=== PATIENT | male | born 1950 | race African-American/Black ===

== ENCOUNTER 2017-11-24 20:42 | Inpatient (IN) | payer MEDICARE, MEDICAID ==
[~2017-11-24] VITALS: Ht 177.8 cm; Wt 70.3 kg
[~2017-11-24 20:42] MED LIST: ALBUTEROL SULFAT2 MG PO; ALBUTEROL2.5 MG/3 M INH; AMLODIPINE BESYL5 MG ORAL; ASPIR 8181 MG ORAL; ATORVASTATIN CA20 MG ORAL; BENADRYL A12.5 MG/5 ORAL; CATAPRES0.1 MG ORAL; CATAPRES0.2 MG ORAL; DOCUSATE SODIU100 MG ORAL; FAMOTIDINE20 MG ORAL; GABAPENTIN300 MG ORAL; HYDROCHLOROTHIA25 MG ORAL; HYDROMORPHONE HC2 M1 PO; LOSARTAN POTASS50 MG ORAL; MEGACE ORA400 MG/10 ORAL; MIRALAX17 G2 ORAL; MYLANTA II30 ML PO; NITROSTAT0.4 M1 SL; NORCO 5-325 TA1 EAC1 ORAL; NORCO 5-325 TA1 EACH ORAL; RANITIDINE HCL150 MG ORAL; RESTORIL15 MG ORAL; TRAZODONE HCL100 MG ORAL; TYLENOL650 MG/20. ORAL
--- NOTE | 2017-11-24 21:09 | Emergency Room Report ---
History of Present Illness General Chief Complaint: Behavioral Complaint Source: Patient Present Illness HPI Is a 67-year-old male who is a detention resident. He has a history of COPD and schizophrenia. He presents with increased agitation and abnormal labs. Nothing his medication for the last 3 days. No fever chills denies nausea vomiting. Blood work showed BUN of 55 and cramps 2.6. Patient denies any complaint. No pain. No nausea no vomiting. No fever or chills. Allergies: Coded Allergies: THIORIDAZINE (Unverified Allergy, Mild, HIVES, 04/06/15) PENICILLIN (Unverified Allergy, Unknown, 06/15/15) PENICILLINS (Unverified Allergy, Unknown, 11/24/17) Patient History Past Medical History: see triage record, old chart reviewed, psych hx, renal disease Past Surgical History: other Pertinent Family History: none Social History: Denies: smoking Immunizations: other Reviewed Nursing Documentation: PMH: Agreed, PSxH: Agreed Nursing Documentation-PMH Past Medical History: No History, Except For Hx Hypertension: Yes Hx COPD: Yes - Acute Resp. distress Hx Diabetes: Yes Hx Cancer: No Hx Neurological Problems: Yes Hx Peripheral Neuropathy: Yes Review of Systems Constitutional: Reports: weakness Eye: Denies: eye pain, blurred vision ENT: Denies: ear pain, nose congestion, throat swelling Respiratory: Denies: cough, shortness of breath Cardiovascular: Denies: chest pain, palpitations Gastrointestinal: Denies: abdominal pain, diarrhea, nausea, vomiting Musculoskeletal: Denies: back pain, joint pain Skin: Denies: rash Neurological: Denies: headache, numbness Endocrine: Denies: increased thirst, increased urine Hematologic/Lymphatic: Denies: easy bruising All Other Systems: negative except mentioned in HPI Physical Exam Vital Signs Date Time Temp Pulse Resp B/P (MAP) Pulse Ox O2 Delivery O2 Flow Rate FiO2 11/24/17 20:50 98.1 93 16 134/93 98 Room Air vitals normal Sp02 EP Interpretation: reviewed, normal General Appearance: well appearing, no apparent distress, alert, other - Sleepy. EMS said he received Ativan prior to arrival. Head: normocephalic, atraumatic Eyes: bilateral eye PERRL, bilateral eye EOMI ENT: hearing 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, normal pharynx Neck: full range of motion, supple, no meningismus Respiratory: chest non-tender, lungs clear, normal breath sounds Cardiovascular #1: regular rate, rhythm, no murmur Gastrointestinal: normal bowel sounds, non tender, no mass, no organomegaly, no bruit, non-distended Musculoskeletal: back normal, normal range of motion Neurologic: alert, oriented x3 Psychiatric: mood/affect normal Skin: warm/dry Medical Decision Making Diagnostic Impression: Primary Impression: Dehydration Additional Impressions: Failure to thrive in adult Agitation ER Course Patient presents with dehydration and acute renal failure. Kidney function improved. IV fluid given here. Patient will be admitted for further workup. Lab Results Impression labs unremarkable Last Vital Signs Date Time Temp Pulse Resp B/P (MAP) Pulse Ox O2 Delivery O2 Flow Rate FiO2 11/24/17 20:50 98.1 93 16 134/93 98 Room Air Status: improved Disposition: ADMITTED INPATIENT Condition: Serious ABIODUN FERMIN M.D. Nov 24, 2017 21:09
[2017-11-24 21:28] VITALS: BP 134/93
[2017-11-24 22:01] LABS: APPEARANCE,URINE CLEAR; BILIRUBIN, URINE NEGATIVE (NEGATIVE); COLOR,URINE PALE YELLOW; GLUCOSE, URINE (UA) NEGATIVE (NEGATIVE); KETONES,URINE NEGATIVE (NEGATIVE); LEUKOCYTE ESTERASE ,URINE NEGATIVE (NEGATIVE); NITRITE,URINE NEGATIVE (NEGATIVE); PH,URINE 6 (4.5-8.0); PROTEIN,URINE 1+ (NEGATIVE); UROBILINOGEN,URINE NORMAL MG/DL (0.0-1.0)
[2017-11-24 22:08] LABS: BASOPHILS % (AUTO) 0.7 % (0.0-2.0); EOSINOPHILS % (AUTO) 3.9 % (0.0-3.0); HEMATOCRIT 30.4 % (42.0-52.0); HEMOGLOBIN 9.8 G/DL (14.2-18.0); LYMPHOCYTES % (AUTO) 21.8 % (20.0-45.0); MEAN CORPUSCULAR VOLUME 94 FL (80-99); MONOCYTES % (AUTO) 8.9 % (1.0-10.0); NEUTROPHILS % (AUTO) 64.7 % (45.0-75.0); PLATELET COUNT 178 K/UL (150-450); RED BLOOD COUNT 3.23 M/UL (4.70-6.10); RED CELL DISTRIBUTION WIDTH 13.3 % (11.6-14.8); WHITE BLOOD COUNT 10.4 K/UL (4.8-10.8)
[2017-11-24 22:26] LABS: ANION GAP 10 mmol/L (5-15); BLOOD UREA NITROGEN 36 mg/dL (7-18); CALCIUM 9.4 MG/DL (8.5-10.1); CARBON DIOXIDE 24 MMOL/L (21-32); CHLORIDE 108 MMOL/L (98-107); CREATININE 1.3 MG/DL (0.55-1.30); POTASSIUM 5.1 MMOL/L (3.5-5.1); SODIUM 142 MMOL/L (136-145)
[2017-11-25] VITALS (8 sets, daily range): BP systolic 123–163; BP diastolic 71–93
[2017-11-25] MEDS ORDERED: GLUCAGEN1 M1 IJ (01:30)
[2017-11-25] MEDS ORDERED: MILK OF MA400 MG/51 ORAL (01:30)
[2017-11-25] MEDS ORDERED: TEMAZEPAM15 MG ORAL (01:30)
[2017-11-25] MEDS ORDERED: BENAZEPRIL HCL10 MG ORAL (01:30)
[2017-11-25] MEDS ORDERED: ATORVASTATIN CA20 MG ORAL (01:30)
[2017-11-25] MEDS ORDERED: NEURONTIN100 MG ORAL (01:30)
[2017-11-25] MEDS ORDERED: VITAMIN C500 M1 ORAL (01:30)
[2017-11-25] MEDS ORDERED: DEPAKOTE250 MG PO (01:30)
[2017-11-25] MEDS ORDERED: VIRT-CAPS SOFTGE1 MG PO (01:30)
[2017-11-25] MEDS ORDERED: BISACODYL5 MG RECTAL (01:30)
[2017-11-25] MEDS ORDERED: PLAVIX75 MG ORAL (01:30)
[2017-11-25] MEDS ORDERED: SEROQUEL100 MG ORAL (01:30)
[2017-11-25] MEDS ORDERED: LORAZEPAM1 MG ORAL (01:30)
[2017-11-25] MEDS ORDERED: LEXAPRO20 MG ORAL (01:30)
[2017-11-25] MEDS ORDERED: AMLODIPINE BESY10 MG ORAL (01:30)
[2017-11-25] MEDS ORDERED: ZINC SULFATE220 M1 ORAL (01:30)
[2017-11-25] MEDS ORDERED: PROTONIX40 MG ORAL (01:30)
[2017-11-25] MEDS ORDERED: FOLIC ACID1 MG ORAL (01:30)
[2017-11-25] MEDS ORDERED: ACETAMINOPHEN325 M1 ORAL (03:24)
[2017-11-25] MEDS ORDERED: ASCORBIC ACID500 MG ORAL (03:24)
[2017-11-25] MEDS ORDERED: NEPHROVITE1 TAB ORAL (03:24)
[2017-11-25] MEDS ORDERED: Miralax 17gm pkt ORAL PRN (05:00)
[2017-11-25] MEDS ORDERED: Mylanta II UD 30ml ORAL PRN (05:00)
[2017-11-25] MEDS ORDERED: Haloperidol 5mg/ml Inj IVPB PRN (05:00)
[2017-11-25] MEDS ORDERED: LORazepam Inj 2mg/ml 1ml IV PRN (05:00)
[2017-11-25] MEDS ORDERED: Zolpidem 5mg tab ORAL PRN (05:00)
[2017-11-25] MEDS ORDERED: Haloperidol Lactate 5 MG in D5W 55 ML IVPB PRN (05:30)
[2017-11-25] MEDS: NovoLOG Insulin Flexpen SUBQ SCH ×4 (06:16→21:00)
[2017-11-25] MEDS: Morphine Sulfate 2mg/ml Inj IVP PRN ×4 (06:30→21:05)
--- NOTE | 2017-11-25 09:06 | Consultation ---
History of Present Illness General Date patient seen: Nov 25, 2017 Chief Complaint: Behavioral Complaint Present Illness HPI 67-year-old male with hx of COPD and schizophrenia, [facility] resident presented with increased agitation . He is confused and agitated, His labs in ER showed BUN of 55 and cramps 2.6. Pt is admitted for acute renal failure and failure to thrive. Allergies: Coded Allergies: THIORIDAZINE (Unverified Allergy, Mild, HIVES, 04/06/15) PENICILLIN (Unverified Allergy, Unknown, 06/15/15) PENICILLINS (Unverified Allergy, Unknown, 11/24/17) Medication History Scheduled Amlodipine Besylate* (Amlodipine Besylate*), 10 MG ORAL DAILY, (Reported) Ascorbic Acid* (Vitamin C*), 500 MG ORAL DAILY, (Reported) Ascorbic Acid* (Ascorbic Acid*), 500 MG ORAL DAILY, (Reported) Atorvastatin Calcium* (Atorvastatin Calcium*), 10 MG ORAL BEDTIME, (Reported) Benazepril Hcl* (Benazepril Hcl*), 10 MG ORAL DAILY, (Reported) Bisacodyl* (Dulcolax*), 10 MG RECTAL ONCE, (Reported) Clopidogrel Bisulfate* (Plavix*), 75 MG ORAL DAILY, (Reported) Divalproex Sodium* (Depakote*), 250 MG PO Q12HR, (Reported) Docusate Sodium* (Docusate Sodium*), 250 MG ORAL BID, (Reported) Escitalopram Oxalate* (Lexapro*), 20 MG ORAL DAILY, (Reported) Folic Acid* (Folic Acid*), 1 MG ORAL DAILY, (Reported) Gabapentin* (Neurontin*), 300 MG ORAL THREE TIMES A DAY, (Reported) Losartan Potassium* (Losartan Potassium*), 50 MG ORAL DAILY, (Reported) Magnesium Hydroxide* (Milk Of Magnesia*), 30 ML ORAL NEEDED, (Reported) Megestrol Acetate (Megestrol Acetate), 400 MG ORAL DAILY, (Reported) Pantoprazole* (Protonix*), 40 MG ORAL DAILY, (Reported) Quetiapine Fumarate* (Seroquel*), 100 MG ORAL THREE TIMES A DAY, (Reported) Ranitidine Hcl* (Zantac*), 150 MG ORAL BEDTIME, (Reported) Temazepam (Temazepam*), 15 MG ORAL QHS, (Reported) Trazodone Hcl* (Desyrel*), 100 MG ORAL BEDTIME, (Reported) Vitamin B Cmplx/Vit C/Folic AC (Nephro-Elizabet Tablet), 1 TAB ORAL DAILY, (Reported ) Zinc Sulfate (Zinc Sulfate*), 220 MG ORAL DAILY, (Reported) Scheduled PRN Acetaminophen* (Acetaminophen 325MG Tablet*), 650 MG ORAL Q6H PRN for Prn Chest Pain, (Reported) Al Hydroxide/mg Hydroxide (Mag-Al Plus Suspension), 30 ML PO Q6HR PRN for gastric pain, (Reported) Albuterol Sulfate* (Albuterol Sulfate Hhn*), 3 ML INH Q6H PRN for Shortness of Breath, (Reported) Clonidine Hcl* (Catapres*), 0.1 MG ORAL EVERY 6 HOURS PRN for For High Blood Pressure, (Reported) Clonidine Hcl* (Catapres*), 0.2 MG ORAL EVERY 4 HOURS PRN for For High Blood Pressure, (Reported) Diphenhydramine Hcl* (Benadryl Allergy*), 25 MG ORAL Q6H PRN for Itching, ( Reported) Hydrocodone Bit/Acetaminophen 5-325* (Outlook 5-325*), 1 TAB ORAL Q6H PRN for For Pain Lorazepam* (Lorazepam*), 1 MG ORAL EVERY 6 HOURS PRN for For Anxiety, (Reported) Nitroglycerin (Nitrostat), 0.4 MG SL Q5M X3 DOSES PRN for Chest Pain, (Reported) Polyethylene Glycol 3350* (Miralax*), 17 GM ORAL DAILY PRN for Constipation, ( Reported) Polyethylene Glycol 3350* (Miralax*), 17 GM ORAL DAILY PRN for Constipation, ( Reported) Miscellaneous Medications B Complex & C No.20/Folic Acid (Virt-Caps Softgel), 1 MG PO, (Reported) Glucagon,Human Recombinant (Glucagen), 1 MG IJ, (Reported) Patient History Healthcare decision maker Resuscitation status Full Code Advanced Directive on File Past Medical/Surgical History Past Medical/Surgical History: (1) Hypertension (2) Schizoaffective disorder (3) Diabetes Review of Systems All Other Systems: negative except mentioned in HPI Physical Exam General Appearance: cachetic Lines, tubes and drains: peripheral HEENT: normocephalic, atraumatic Neck: non-tender, normal alignment Respiratory/Chest: chest wall non-tender, lungs clear Breasts: no masses Cardiovascular/Chest: normal peripheral pulses Abdomen: normal bowel sounds, non tender Genitourinary/Rectal: normal genital exam, normal rectal exam Extremities: normal range of motion Last 24 Hour Vital Signs Date Time Temp Pulse Resp B/P (MAP) Pulse Ox O2 Delivery O2 Flow Rate FiO2 11/25/17 08:13 97.7 90 20 144/81 97 11/25/17 03:20 97.3 89 20 135/71 100 Room Air 11/25/17 01:36 98.0 81 19 158/89 97 Room Air 11/25/17 01:30 97.6 98 16 163/74 99 Room Air 11/25/17 01:30 97.6 98 16 163/74 99 Room Air 11/25/17 00:53 98.1 98 16 159/93 98 Room Air 11/24/17 21:28 98.1 93 16 134/93 98 Room Air 11/24/17 20:50 98.1 93 16 134/93 98 Room Air Intake and Output 11/24/17 11/25/17 19:00 07:00 Intake Total 0 ml Balance 0 ml Intake Oral 0 ml # Voids 2 # Bowel Movements 1 Laboratory Tests Test 11/24/17 21:11 White Blood Count 10.4 K/UL (4.8-10.8) Red Blood Count 3.23 M/UL (4.70-6.10) L Hemoglobin 9.8 G/DL (14.2-18.0) L Hematocrit 30.4 % (42.0-52.0) L Mean Corpuscular Volume 94 FL (80-99) Mean Corpuscular Hemoglobin 30.4 PG (27.0-31.0) Mean Corpuscular Hemoglobin Concent 32.3 G/DL (32.0-36.0) Red Cell Distribution Width 13.3 % (11.6-14.8) Platelet Count 178 K/UL (150-450) Mean Platelet Volume 10.0 FL (6.5-10.1) Neutrophils (%) (Auto) 64.7 % (45.0-75.0) Lymphocytes (%) (Auto) 21.8 % (20.0-45.0) Monocytes (%) (Auto) 8.9 % (1.0-10.0) Eosinophils (%) (Auto) 3.9 % (0.0-3.0) H Basophils (%) (Auto) 0.7 % (0.0-2.0) Urine Color Pale yellow Urine Appearance Clear Urine pH 6 (4.5-8.0) Urine Specific [place] 1.010 (1.005-1.035) Urine Protein 1+ (NEGATIVE) H Urine Glucose (UA) Negative (NEGATIVE) Urine Ketones Negative (NEGATIVE) Urine Occult Blood Negative (NEGATIVE) Urine Nitrite Negative (NEGATIVE) Urine Bilirubin Negative (NEGATIVE) Urine Urobilinogen Normal MG/DL (0.0-1.0) Urine Leukocyte Esterase Negative (NEGATIVE) Urine RBC 0-2 /HPF (0 - 0) H Urine WBC 0 /HPF (0 - 0) Urine Squamous Epithelial Cells None /LPF (NONE/OCC) Urine Bacteria None /HPF (NONE) Sodium Level 142 MMOL/L (136-145) Potassium Level 5.1 MMOL/L (3.5-5.1) Chloride Level 108 MMOL/L (98-107) H Carbon Dioxide Level 24 MMOL/L (21-32) Anion Gap 10 mmol/L (5-15) Blood Urea Nitrogen 36 mg/dL (7-18) H Creatinine 1.3 MG/DL (0.55-1.30) Estimat Glomerular Filtration Rate > 60 mL/min (>60) Glucose Level 102 MG/DL (74-106) Calcium Level 9.4 MG/DL (8.5-10.1) Troponin I 0.000 ng/mL (0.000-0.056) Height (Feet): 5 Height (Inches): 10.00 Weight (Pounds): 155 Medications Current Medications Medications (Trade) Dose Ordered Sig/Taco Route PRN Reason Start Time Stop Time Status Last Admin Dose Admin Acetaminophen (Tylenol) 650 mg Q4H PRN ORAL fever 11/25/17 05:00 12/25/17 04:59 Al Hydroxide/Mg Hydroxide (Mylanta II) 30 ml Q6H PRN ORAL dyspepsia 11/25/17 05:00 12/25/17 04:59 Amlodipine Besylate (Norvasc) 10 mg DAILY ORAL 11/25/17 09:00 12/25/17 08:59 Benazepril HCl (Lotensin) 10 mg DAILY ORAL 11/25/17 09:00 12/25/17 08:59 Clonidine HCl (Catapres Tab) 0.1 mg EVERY 6 HOURS PRN ORAL SBP>160 11/25/17 09:00 12/25/17 08:59 Clopidogrel Bisulfate (Plavix) 75 mg DAILY ORAL 11/25/17 09:00 12/25/17 08:59 Dextrose (Dextrose 50%) STAT PRN IV Hypoglycemia 11/25/17 05:00 12/25/17 04:59 Divalproex Sodium (Depakote) 250 mg Q12HR ORAL 11/25/17 09:00 12/25/17 08:59 Haloperidol Lactate 5 mg/ Dextrose 56 ml @ 224 mls/hr Q4H PRN IVPB agitation 11/25/17 05:30 12/25/17 05:29 Insulin Aspart (NovoLOG) BEFORE MEALS AND HS SUBQ 11/25/17 06:30 12/25/17 06:29 Lorazepam (Ativan 2mg/ml 1ml) 0.5 mg Q4H PRN IV For Anxiety 11/25/17 05:00 12/02/17 04:59 Morphine Sulfate (Morphine Sulfate) 1 mg Q4H PRN IVP For Pain 11/25/17 05:00 12/02/17 04:59 11/25/17 06:30 Ondansetron HCl (Zofran) 4 mg Q6H PRN IVP Nausea & Vomiting 11/25/17 05:00 12/25/17 04:59 Polyethylene Glycol (Miralax) 17 gm HSPRN PRN ORAL Constipation 11/25/17 05:00 12/25/17 04:59 Quetiapine Fumarate (SEROquel) 100 mg THREE TIMES A DAY ORAL 11/25/17 09:00 12/25/17 08:59 Trazodone HCl (Desyrel) 100 mg BEDTIME ORAL 11/25/17 21:00 12/25/17 20:59 Zolpidem Tartrate (Ambien) 5 mg HSPRN PRN ORAL Insomnia 11/25/17 05:00 12/02/17 04:59 Assessment/Plan Problem List: (1) Acute kidney failure ICD Codes: N17.9 - Acute kidney failure, unspecified SNOMED: 43242360 (2) Diabetes ICD Codes: E11.9 - Diabetes SNOMED: 96812633 (3) Anemia ICD Codes: D64.9 - Anemia SNOMED: 080943037 (4) Hypertension ICD Codes: I10 - Hypertension SNOMED: 14508622 (5) Schizoaffective disorder ICD Codes: F25.9 - Schizoaffective disorder SNOMED: 05066542 Assessment/Plan iv fluids renal w/u renal US continue psychiatric med symptomatic treatment KAREEM COREY Nov 25, 2017 09:05
[2017-11-25] MEDS: Benazepril 10mg tab ORAL SCH (09:12)
[2017-11-25 10:45] LABS: CREATINE KINASE 555 U/L (26-308)
--- NOTE | 2017-11-25 11:45 | Diagnostic Imaging Report ---
Indication: Altered mental status Technique: XRAY Chest 1v Comparison: 06/18/1715 Findings: Rotated and leaning to the right. Heart size and mediastinal contours are stable. There is no focal airspace consolidation, pleural effusion or pneumothorax. No acute osseous abnormality seen. Impression: Limited exam. No radiographic evidence of acute cardiopulmonary disease.
[2017-11-25 13:26] LABS: APPEARANCE,URINE CLEAR; BILIRUBIN, URINE NEGATIVE (NEGATIVE); COLOR,URINE PALE YELLOW; GLUCOSE, URINE (UA) NEGATIVE (NEGATIVE); KETONES,URINE NEGATIVE (NEGATIVE); LEUKOCYTE ESTERASE ,URINE NEGATIVE (NEGATIVE); NITRITE,URINE NEGATIVE (NEGATIVE); PH,URINE 6 (4.5-8.0); PROTEIN,URINE NEGATIVE (NEGATIVE); UROBILINOGEN,URINE NORMAL MG/DL (0.0-1.0)
[2017-11-25] MEDS: LORazepam Inj 2mg/ml 1ml IV PRN ×2 (17:09→23:05)
--- NOTE | 2017-11-25 20:00 | History and Physical Report ---
DATE OF ADMISSION: 11/25/2017 TIME SEEN: At 9 a.m. CONSULTANTS: 1. Uziel Collado M.D. 2. Vanesa Skinner M.D. 3. Hector Pradhan M.D. 4. Diogo Barr D.P.M. CHIEF COMPLAINT: Agitation, weakness, and foot wound. BRIEF HISTORY: This is a 67-year-old male from [facility] presented with the above-mentioned diagnoses, was agitated and threatening staff. The patient came to [facility], diagnosed with the above, and admitted to medical floor for further treatment. Currently, calmer in bed. No complaint. No chest pain. No shortness of breath. No nausea, vomiting, or diarrhea. PAST MEDICAL HISTORY: Includes diabetes, hypertension, encephalopathy, and foot wound. PAST SURGICAL HISTORY: Left eye. MEDICATIONS: Include Desyrel, Norvasc, Lotensin, Catapres, Plavix, Depakote, Seroquel, NovoLog, Tylenol, morphine, MiraLAX, Zofran, Ambien, Ativan, and Mylanta. ALLERGIES: Penicillin, . SOCIAL HISTORY: Positive smoking. No alcohol. No intravenous drug abuse. FAMILY HISTORY: Noncontributory. PHYSICAL EXAMINATION: GENERAL: Calm in bed, oriented x2, in no acute distress. VITAL SIGNS: Show temperature is 97, pulse 90, respirations 20, and blood pressure 144/81. CARDIOVASCULAR: No murmur. LUNGS: Distant and clear. ABDOMEN: Bowel sounds positive. Nontender. Nondistended. EXTREMITIES: No cyanosis or clubbing. A 1+ edema. Foot wound dressing is clean and dry. NEUROLOGIC: The patient moves all extremities. Slightly weak. LABORATORY DATA: Hemoglobin 9.8, otherwise CBC is normal. BMP shows chloride 108, BUN 36, otherwise BMP is normal. Urinalysis show 1+ protein, otherwise negative. ASSESSMENT: 1. Agitation. 2. Dehydration. 3. Anemia. 4. Diabetes. 5. Hypertension. 6. Foot wound. PLAN: 1. OT, PT, and dietary followup. 2. Wound care. 3. Blood pressure and blood sugar control. 4. Pain control. 5. CBC and BMP in the morning. 6. Dr. Collado, Dr. Skinner, Dr. Pradhan, and Dr. Brar to consult. Jarek Gonzalez D.O. DR: YUDELKA JOB#: [id number] CC:
[2017-11-25] MEDS: TraZODone 100mg tab ORAL SCH (21:03)
[2017-11-26] VITALS (9 sets, daily range): BP systolic 116–147; BP diastolic 62–82
[2017-11-26] MEDS: LORazepam Inj 2mg/ml 1ml IV PRN ×2 (03:23→12:40)
--- NOTE | 2017-11-26 04:48 | Consultation ---
DATE OF CONSULTATION: 11/25/2017 HISTORY OF PRESENT ILLNESS: This is a 67-year-old male patient with acute renal failure. This patient has a diagnosis of schizoaffective, bipolar type. The reason why he came here was because of acute renal failure. He has a lot of mood lability, agitation, and irritability. He also has neuropathy, difficulty with ambulation, and lower extremity weakness. He has multiple medical problems. Cognition has declined below baseline. He has extreme agitation, mood lability, and anxiety secondary to stress with medical illness, so that is why his attending has requested daily psychiatric consultation. ALLERGIES: No known drug allergies. SOCIAL HISTORY: The patient is financially supported by [employer] and Medicare. . SUBSTANCE ABUSE HISTORY: Denies drug and alcohol use. PSYCHIATRIC HISTORY: Schizoaffective, bipolar type. Now, he is on a psychotropic medication regimen of Depakote 250 mg at bedtime, trazodone 100 mg at bedtime, and Seroquel 100 mg three times a day. FAMILY PSYCHIATRIC HISTORY: he is a poor historian secondary to his mood lability and decline in cognition. MENTAL STATUS EXAMINATION: This is a 67-year-old male with psychomotor retardation. Mood is depressed. Affect, guarded and restricted. Thought process is disorganized and illogical. He has paranoid delusions and auditory hallucinations. Insight and judgment is poor. DIAGNOSIS: Schizoaffective, bipolar type. PLAN: My plan for this patient is to treat him with Depakote 250 mg at bedtime, trazodone 100 mg at bedtime, Seroquel 100 mg three times a day. Provide him with supportive therapy and encourage him to interact appropriately with staff and other patients. Seen and assessed at bedside. Chart was reviewed and discussed with staff. Supportive therapy provided. I would like to thank, Dr. Jarek Gonzalez, for this interesting consultation. The patient will continue to be followed by Psychiatry daily throughout his hospital course. Uziel Collado M.D. DR: TONYA JOB#: [id number] CC:
[2017-11-26] MEDS: NovoLOG Insulin Flexpen SUBQ SCH ×4 (06:30→21:40)
[2017-11-26 07:18] LABS: BASOPHILS % (AUTO) 0.8 % (0.0-2.0); EOSINOPHILS % (AUTO) 4.3 % (0.0-3.0); HEMATOCRIT 26.9 % (42.0-52.0); HEMOGLOBIN 8.6 G/DL (14.2-18.0); MEAN CORPUSCULAR VOLUME 92 FL (80-99); MONOCYTES % (AUTO) 12.1 % (1.0-10.0); NEUTROPHILS % (AUTO) 53.9 % (45.0-75.0); PLATELET COUNT 176 K/UL (150-450); RED BLOOD COUNT 2.91 M/UL (4.70-6.10); RED CELL DISTRIBUTION WIDTH 13.2 % (11.6-14.8); WHITE BLOOD COUNT 8.1 K/UL (4.8-10.8)
[2017-11-26 07:44] LABS: ALANINE AMINOTRANSFERASE 37 U/L (12-78); ALBUMIN 2.7 G/DL (3.4-5.0); ALBUMIN/GLOBULIN RATIO 0.5 (1.0-2.7); ALKALINE PHOSPHATASE 130 U/L (46-116); ANION GAP 9 mmol/L (5-15); ASPARTATE AMINO TRANSFERASE 34 U/L (15-37); BILIRUBIN,TOTAL 0.2 MG/DL (0.2-1.0); BLOOD UREA NITROGEN 17 mg/dL (7-18); CALCIUM 9.2 MG/DL (8.5-10.1); CARBON DIOXIDE 25 MMOL/L (21-32); CHLORIDE 108 MMOL/L (98-107); CHOLESTEROL 70 MG/DL (< 200); CREATININE 1.1 MG/DL (0.55-1.30); HDL CHOLESTEROL 45 MG/DL (40-60); LACTATE DEHYDROGENASE 174 U/L (81-234); POTASSIUM 5.1 MMOL/L (3.5-5.1); SODIUM 142 MMOL/L (136-145); TRIGLYCERIDES 20 MG/DL (30-150)
--- NOTE | 2017-11-26 07:48 | General Progress Note ---
Assessment/Plan Problem List: (1) Agitation ICD Codes: R45.1 - Restlessness and agitation SNOMED: 327118595 (2) Diabetes ICD Codes: E11.9 - Diabetes SNOMED: 33717096 (3) Anemia ICD Codes: D64.9 - Anemia SNOMED: 868781857 (4) Hypertension ICD Codes: I10 - Hypertension SNOMED: 46190476 (5) Schizoaffective disorder ICD Codes: F25.9 - Schizoaffective disorder SNOMED: 75603323 (6) Dehydration ICD Codes: E86.0 - Dehydration SNOMED: 00003567 Status: unchanged Assessment/Plan ot pt diet abx wound care cbc bmp am psyc transfer Subjective Constitutional: Reports: weakness Allergies: Coded Allergies: THIORIDAZINE (Unverified Allergy, Mild, HIVES, 04/06/15) PENICILLIN (Unverified Allergy, Unknown, 06/15/15) PENICILLINS (Unverified Allergy, Unknown, 11/24/17) All Systems: reviewed and negative except above Subjective calm in bed eating Objective Last 24 Hour Vital Signs Date Time Temp Pulse Resp B/P (MAP) Pulse Ox O2 Delivery O2 Flow Rate FiO2 11/26/17 04:00 98.2 86 18 135/68 99 Room Air 11/26/17 00:09 98.2 101 21 142/69 94 11/25/17 20:23 98.2 98 21 126/75 93 11/25/17 16:04 98.2 101 21 123/75 100 11/25/17 11:24 97.4 89 20 151/76 100 11/25/17 09:12 144/81 11/25/17 09:09 90 144/81 11/25/17 08:13 97.7 90 20 144/81 97 Intake and Output 11/25/17 11/26/17 19:00 07:00 Intake Total 980 ml 840 ml Output Total 1440 ml 800 ml Balance -460 ml 40 ml Intake Oral 980 ml 840 ml Output Urine Total 1440 ml 800 ml # Voids 5 2 # Bowel Movements 1 Laboratory Tests 11/25/17 09:20: Uric Acid 7.1, Total Creatine Kinase 555H 11/25/17 11:30: Urine Color Pale yellow, Urine Appearance Clear, Urine pH 6, Urine Specific [place] 1.010, Urine Protein Negative, Urine Glucose (UA) Negative, Urine Ketones Negative, Urine Occult Blood Negative, Urine Nitrite Negative, Urine Bilirubin Negative, Urine Urobilinogen Normal, Urine Leukocyte Esterase Negative , Urine RBC 2-4H, Urine WBC 0-2, Urine Squamous Epithelial Cells Occasional, Urine Bacteria Occasional, Urine Random Sodium 105, Urine Potassium Timed 11/26/17 05:20: White Blood Count 8.1, Red Blood Count 2.91L, Hemoglobin 8.6L, Hematocrit 26.9L , Mean Corpuscular Volume 92, Mean Corpuscular Hemoglobin 29.6, Mean Corpuscular Hemoglobin Concent 32.1, Red Cell Distribution Width 13.2, Platelet Count 176, Mean Platelet Volume 9.0, Neutrophils (%) (Auto) 53.9, Lymphocytes (% ) (Auto) 29.0, Monocytes (%) (Auto) 12.1H, Eosinophils (%) (Auto) 4.3H, Basophils (%) (Auto) 0.8, Erythrocyte Sedimentation Rate [Pending], Reticulocyte Count [Pending], Prothrombin Time 10.2, Prothromb Time International Ratio 1.0, Activated Partial Thromboplast Time 29, Sodium Level [ Pending], Potassium Level [Pending], Chloride Level [Pending], Carbon Dioxide Level [Pending], Blood Urea Nitrogen [Pending], Creatinine [Pending], Estimat Glomerular Filtration Rate [Pending], Glucose Level [Pending], Calcium Level [ Pending], Iron Level [Pending], Unsaturated Iron Binding [Pending], Total Bilirubin [Pending], Aspartate Amino Transf (AST/SGOT) [Pending], Alanine Aminotransferase (ALT/SGPT) [Pending], Alkaline Phosphatase [Pending], Lactate Dehydrogenase [Pending], Total Protein [Pending], Albumin [Pending], Globulin [ Pending], Triglycerides Level [Pending], Cholesterol Level [Pending], LDL Cholesterol [Pending], HDL Cholesterol [Pending], Cholesterol/HDL Ratio [Pending ], Vitamin B12 Level [Pending], Folate [Pending], Thyroid Stimulating Hormone ( TSH) [Pending] Height (Feet): 5 Height (Inches): 10.00 Weight (Pounds): 155 General Appearance: lethargic, confused EENT: normal ENT inspection Neck: normal alignment Cardiovascular: normal peripheral pulses, normal rate, regular rhythm Respiratory/Chest: chest wall non-tender, lungs clear, normal breath sounds Abdomen: normal bowel sounds, non tender, soft Extremities: normal inspection Edema: no edema noted Arm (L), no edema noted Arm (R), no edema noted Leg (L), no edema noted Leg (R), no edema noted Pedal (L), no edema noted Pedal (R), no edema noted Generalized Neurologic: responsive, motor weakness Skin: normal pigmentation, warm/dry JEFFREY DE LA CRUZ Nov 26, 2017 07:48
[2017-11-26 08:09] LABS: % IRON SATURATION 21 % (15-50); IRON 35 ug/dL (50-175); TOTAL IRON BINDING CAPACITY 169 ug/dL (250-450)
[2017-11-26] MEDS: Benazepril 10mg tab ORAL SCH (09:21)
[2017-11-26] MEDS: Morphine Sulfate 2mg/ml Inj IVP PRN (09:22)
--- NOTE | 2017-11-26 11:41 | Pulmonology Progress Note ---
Assessment/Plan Problems: (1) Acute kidney failure (2) Diabetes (3) Anemia (4) Hypertension (5) Schizoaffective disorder Assessment/Plan check electroltyes stool for ob abdominal Us pending monitor BP dvt prophylaxis psych evaluation Subjective ROS Limited/Unobtainable: No Allergies: Coded Allergies: THIORIDAZINE (Unverified Allergy, Mild, HIVES, 04/06/15) PENICILLIN (Unverified Allergy, Unknown, 06/15/15) PENICILLINS (Unverified Allergy, Unknown, 11/24/17) Objective Last 24 Hour Vital Signs Date Time Temp Pulse Resp B/P (MAP) Pulse Ox O2 Delivery O2 Flow Rate FiO2 11/26/17 09:21 146/78 11/26/17 09:21 99 146/78 11/26/17 08:06 98.2 99 18 146/78 98 Room Air 11/26/17 04:00 98.2 86 18 135/68 99 Room Air 11/26/17 00:09 98.2 101 21 142/69 94 11/25/17 20:23 98.2 98 21 126/75 93 11/25/17 16:04 98.2 101 21 123/75 100 Intake and Output 11/25/17 11/26/17 19:00 07:00 Intake Total 980 ml 840 ml Output Total 1440 ml 800 ml Balance -460 ml 40 ml Intake Oral 980 ml 840 ml Output Urine Total 1440 ml 800 ml # Voids 5 2 # Bowel Movements 1 Objective General Appearance: cachetic Lines, tubes and drains: peripheral HEENT: normocephalic, atraumatic Neck: non-tender, normal alignment Respiratory/Chest: chest wall non-tender, lungs clear Breasts: no masses Cardiovascular/Chest: normal peripheral pulses Abdomen: normal bowel sounds, non tender Genitourinary/Rectal: normal genital exam, normal rectal exam Extremities: normal range of motion Laboratory Tests 11/26/17 05:20: White Blood Count 8.1, Red Blood Count 2.91L, Hemoglobin 8.6L, Hematocrit 26.9L , Mean Corpuscular Volume 92, Mean Corpuscular Hemoglobin 29.6, Mean Corpuscular Hemoglobin Concent 32.1, Red Cell Distribution Width 13.2, Platelet Count 176, Mean Platelet Volume 9.0, Neutrophils (%) (Auto) 53.9, Lymphocytes (% ) (Auto) 29.0, Monocytes (%) (Auto) 12.1H, Eosinophils (%) (Auto) 4.3H, Basophils (%) (Auto) 0.8, Differential Total Cells Counted 100, Neutrophils % ( Manual) 53, Lymphocytes % (Manual) 32, Monocytes % (Manual) 12H, Eosinophils % ( Manual) 3, Basophils % (Manual) 0, Band Neutrophils 0, Platelet Estimate Adequate, Platelet Morphology Normal, Hypochromasia 1+, Erythrocyte Sedimentation Rate 118H, Reticulocyte Count 0.6, Prothrombin Time 10.2, Prothromb Time International Ratio 1.0, Activated Partial Thromboplast Time 29, Sodium Level 142, Potassium Level 5.1, Chloride Level 108H, Carbon Dioxide Level 25, Anion Gap 9, Blood Urea Nitrogen 17, Creatinine 1.1, Estimat Glomerular Filtration Rate > 60, Glucose Level 71L, Calcium Level 9.2, Iron Level 35L, Total Iron Binding Capacity 169L, Percent Iron Saturation 21, Unsaturated Iron Binding 134, Total Bilirubin 0.2, Aspartate Amino Transf (AST/ SGOT) 34, Alanine Aminotransferase (ALT/SGPT) 37, Alkaline Phosphatase 130H, Lactate Dehydrogenase 174, Total Protein 7.7, Albumin 2.7L, Globulin 5.0, Albumin/Globulin Ratio 0.5L, Triglycerides Level 20L, Cholesterol Level 70, LDL Cholesterol 25, HDL Cholesterol 45, Cholesterol/HDL Ratio 1.6L, Vitamin B12 Level 642, Folate 19.1, Thyroid Stimulating Hormone (TSH) 0.734 Current Medications Medications (Trade) Dose Ordered Sig/Taco Route PRN Reason Start Time Stop Time Status Last Admin Dose Admin Acetaminophen (Tylenol) 650 mg Q4H PRN ORAL fever 11/25/17 05:00 12/25/17 04:59 11/26/17 03:22 Al Hydroxide/Mg Hydroxide (Mylanta II) 30 ml Q6H PRN ORAL dyspepsia 11/25/17 05:00 12/25/17 04:59 Amlodipine Besylate (Norvasc) 10 mg DAILY ORAL 11/25/17 09:00 12/25/17 08:59 11/26/17 09:21 Benazepril HCl (Lotensin) 10 mg DAILY ORAL 11/25/17 09:00 12/25/17 08:59 11/26/17 09:21 Clonidine HCl (Catapres Tab) 0.1 mg EVERY 6 HOURS PRN ORAL SBP>160 11/25/17 09:00 12/25/17 08:59 Clopidogrel Bisulfate (Plavix) 75 mg DAILY ORAL 11/25/17 09:00 12/25/17 08:59 11/26/17 09:21 Dextrose (Dextrose 50%) STAT PRN IV Hypoglycemia 11/25/17 05:00 12/25/17 04:59 Divalproex Sodium (Depakote) 250 mg Q12HR ORAL 11/25/17 09:00 12/25/17 08:59 11/26/17 09:22 Haloperidol Lactate 5 mg/ Dextrose 56 ml @ 224 mls/hr Q4H PRN IVPB agitation 11/25/17 05:30 12/25/17 05:29 Insulin Aspart (NovoLOG) BEFORE MEALS AND HS SUBQ 11/25/17 06:30 12/25/17 06:29 Lorazepam (Ativan 2mg/ml 1ml) 1 mg Q4H PRN IV For Anxiety 11/25/17 18:00 12/02/17 17:59 11/26/17 03:23 Morphine Sulfate (Morphine Sulfate) 1 mg Q4H PRN IVP For Pain 11/25/17 05:00 12/02/17 04:59 11/26/17 09:22 Ondansetron HCl (Zofran) 4 mg Q6H PRN IVP Nausea & Vomiting 11/25/17 05:00 12/25/17 04:59 Polyethylene Glycol (Miralax) 17 gm HSPRN PRN ORAL Constipation 11/25/17 05:00 12/25/17 04:59 Quetiapine Fumarate (SEROquel) 100 mg THREE TIMES A DAY ORAL 11/25/17 09:00 12/25/17 08:59 11/26/17 09:22 Trazodone HCl (Desyrel) 100 mg BEDTIME ORAL 11/25/17 21:00 12/25/17 20:59 11/25/17 21:03 Zolpidem Tartrate (Ambien) 5 mg HSPRN PRN ORAL Insomnia 11/25/17 05:00 12/02/17 04:59 KAREEM COREY Nov 26, 2017 11:41
[2017-11-26] MEDS ORDERED: Norco 5mg/325mg tab ORAL PRN (17:00)
--- NOTE | 2017-11-26 21:03 | Progress Note ---
DATE: 11/26/2017 HISTORY: This is a 67-year-old male patient with acute renal failure. He states he continues to have some mood lability, confusion, and disorganized though process. He is very angry, irritable, and 00:13 unpredictable. Confused overall. 00:16 acute renal failure, but he is having this mood lability 00:20 psychomotor distress and mental illness. MENTAL STATUS EXAMINATION: This is a 67-year-old male with psychomotor agitation. Mood is irritable and agitated. Affect guarded and restricted. Thought process disorganized and illogical. This patient is denying any homicidal ideations, but cannot 01:18 suicidal ideations. Insight and judgement is poor. DIAGNOSIS: Schizoaffective, bipolar type. PLAN: Treat him with Depakote 250 mg daily, trazodone 100 mg at bedtime 01:29 provide him with supportive therapy. Seen and assessed at bedtime. Chart reviewed. Discussed with staff. Seen and assessed at bedside. Uziel Collado M.D. DR: ZONIA JOB#: [id number] CC:
--- NOTE | 2017-11-26 21:17 | Consultation ---
DATE OF CONSULTATION: 11/25/2017 PSYCHOTHERAPY CONSULTATION PROGRESS NOTE TREATING ATTENDING PHYSICIAN: Jarek Gonzalez D.O. CONSULTING PHYSICIAN: Irvin Zheng M.D. HISTORY OF PRESENT ILLNESS: The patient is a 67-year-old male patient. The patient has a history of schizophrenia. The patient was initially admitted to the hospital from [facility] as he was making threatening remarks towards others, very agitated and irritable. He is referred for psychotherapeutic services due to his behavior. When this clinician assessed the patient, the patient is very guarded and agitated. He states that he does not need medical treatment. He states that he is very angry and irritable does not want anyone to touch his body as they are causing him pain and distress. He is very agitated and irritable. Responding to internal stimuli. At this time, this clinician assessed the patient. The patient at this time requires hospitalization for stabilization of his symptoms. PAST MEDICAL HISTORY: Include history of hypertension, diabetes, and foot wound. ALLERGIES: The patient has allergies to penicillin. SUBSTANCE ABUSE HISTORY: The patient has history of smoking cigarettes. Denies any history of alcohol use. Denies any history of illicit substance use. PSYCHIATRIC HISTORY: The patient has a history of paranoid schizophrenia. The patient has been treated with psychotropic medications in the past. SOCIAL HISTORY: The patient is a 67-year-old male patient from [facility]. Financially sustained through [facility]. MENTAL STATUS EXAMINATION: The patient is alert and oriented to person and place. His mood is irritable. Affect is labile. Thought process disorganized. Thought content delusional. The patient has poor attention and concentration. Poor insight, judgment, and impulse control. DIAGNOSIS: Schizophrenia, paranoid type. PLAN: Continue with behavioral management. This clinician provided the patient with reality orientation, supportive psychotherapy, and coping skills. Encouraging the patient to participate in treatment milieu. Continue with behavioral management. This clinician has reviewed the patient's chart and discussed the treatment with treatment team. Irvin Zheng PsyD. DR: Tea JOB#: [id number] CC:
[2017-11-26] MEDS: TraZODone 100mg tab ORAL SCH (21:37)
[2017-11-27] VITALS: BP 117/56
[2017-11-27 04:00] VITALS: BP 118/57
[2017-11-27] MEDS: NovoLOG Insulin Flexpen SUBQ SCH ×2 (06:30→11:30)
[2017-11-27 08:00] VITALS: BP 121/63
[2017-11-27 08:13] LABS: BASOPHILS % (AUTO) 0.8 % (0.0-2.0); EOSINOPHILS % (AUTO) 4.6 % (0.0-3.0); HEMATOCRIT 29.9 % (42.0-52.0); HEMOGLOBIN 9.5 G/DL (14.2-18.0); LYMPHOCYTES % (AUTO) 33.8 % (20.0-45.0); MEAN CORPUSCULAR VOLUME 93 FL (80-99); MONOCYTES % (AUTO) 10.6 % (1.0-10.0); NEUTROPHILS % (AUTO) 50.2 % (45.0-75.0); PLATELET COUNT 193 K/UL (150-450); RED BLOOD COUNT 3.22 M/UL (4.70-6.10); RED CELL DISTRIBUTION WIDTH 13.2 % (11.6-14.8); WHITE BLOOD COUNT 7.6 K/UL (4.8-10.8)
[2017-11-27 08:37] LABS: ANION GAP 9 mmol/L (5-15); BLOOD UREA NITROGEN 20 mg/dL (7-18); CALCIUM 9.3 MG/DL (8.5-10.1); CARBON DIOXIDE 26 MMOL/L (21-32); CHLORIDE 106 MMOL/L (98-107); CREATININE 1.2 MG/DL (0.55-1.30); POTASSIUM 5.2 MMOL/L (3.5-5.1); SODIUM 141 MMOL/L (136-145)
--- NOTE | 2017-11-27 08:59 | Consultation ---
Consult Note Assessment/Plan A/ 1) Cellulitis left lower extremity 2) Non pressure ulcers of left ankle to subq 3) DM 4) Psych issues P/ 1) Wound cultures ordered. Start on Vanco with pharmacy to dose 2) New wound care orders placed 3) X-ray left ankle ordered 4) Strict glycemic control for optimal wound outcome 5) Will follow Thank you Dr Gonzalez. Diogo Barr DPM Nov 27, 2017 08:59
[2017-11-27] MEDS: Benazepril 10mg tab ORAL SCH (09:17)
[2017-11-27] MEDS ORDERED: Vancomycin 1.5 GM/D5W 250ML IVPB SCH (10:00)
--- NOTE | 2017-11-27 10:38 | Diagnostic Imaging Report ---
Indication: Pain Technique: 3 views of the left ankle Comparison: none Findings: The bones are osteoporotic. No acute fractures. No dislocations. The joint spaces are preserved. Impression: No acute process
--- NOTE | 2017-11-27 11:47 | Diagnostic Imaging Report ---
Indication: Pain, status post fall Technique: One view the pelvis, single frog lateral view of both hips Comparison: none Findings: Exam is somewhat limited, due to lack of availability of individual hip views and as the patient is rotated to the left. No gross acute fractures. No dislocations. The joint spaces are preserved. Impression: Limited. No gross acute bony trauma This agrees with the preliminary interpretation provided overnight by [facility]eradiology service.
[2017-11-27 12:00] VITALS: BP 113/65
--- NOTE | 2017-11-27 13:28 | General Progress Note ---
Assessment/Plan Problem List: (1) Agitation ICD Codes: R45.1 - Restlessness and agitation SNOMED: 186847769 (2) Diabetes ICD Codes: E11.9 - Diabetes SNOMED: 73544779 (3) Anemia ICD Codes: D64.9 - Anemia SNOMED: 227542416 (4) Hypertension ICD Codes: I10 - Hypertension SNOMED: 63789112 (5) Schizoaffective disorder ICD Codes: F25.9 - Schizoaffective disorder SNOMED: 62670513 (6) Dehydration ICD Codes: E86.0 - Dehydration SNOMED: 45596826 Status: stable, progressing, tolerating diet Assessment/Plan ot pt diet abx wound care dc if clear Subjective Constitutional: Reports: weakness Allergies: Coded Allergies: THIORIDAZINE (Unverified Allergy, Mild, HIVES, 04/06/15) PENICILLIN (Unverified Allergy, Unknown, 06/15/15) PENICILLINS (Unverified Allergy, Unknown, 11/24/17) All Systems: reviewed and negative except above Subjective calm in bed eating Objective Last 24 Hour Vital Signs Date Time Temp Pulse Resp B/P (MAP) Pulse Ox O2 Delivery O2 Flow Rate FiO2 11/27/17 12:00 97.9 90 20 113/65 97 11/27/17 09:17 121/63 11/27/17 09:17 90 121/63 11/27/17 08:00 98.4 90 20 121/63 99 11/27/17 04:00 98.1 99 20 118/57 98 11/27/17 00:00 98.1 98 20 117/56 98 11/26/17 21:38 165/69 11/26/17 20:46 97.0 90 19 129/69 96 11/26/17 18:48 97.0 90 19 135/66 97 Room Air 11/26/17 18:39 100 18 116/70 100 Room Air 11/26/17 18:15 97.7 108 20 147/82 98 Room Air 11/26/17 16:00 97.8 85 18 138/72 98 Room Air Intake and Output 11/26/17 11/27/17 19:00 07:00 Intake Total 840 ml 480 ml Output Total 1150 ml Balance 840 ml -670 ml Intake Oral 840 ml 480 ml Output Urine Total 1150 ml # Voids 5 Laboratory Tests 11/27/17 04:00: Urine Eosinophils None seen 11/27/17 05:40: White Blood Count 7.6, Red Blood Count 3.22L, Hemoglobin 9.5L, Hematocrit 29.9L , Mean Corpuscular Volume 93, Mean Corpuscular Hemoglobin 29.5, Mean Corpuscular Hemoglobin Concent 31.7L, Red Cell Distribution Width 13.2, Platelet Count 193, Mean Platelet Volume 8.5, Neutrophils (%) (Auto) 50.2, Lymphocytes (%) (Auto) 33.8, Monocytes (%) (Auto) 10.6H, Eosinophils (%) (Auto) 4.6H, Basophils (%) (Auto) 0.8, Sodium Level 141, Potassium Level 5.2H, Chloride Level 106, Carbon Dioxide Level 26, Anion Gap 9, Blood Urea Nitrogen 20H, Creatinine 1.2, Estimat Glomerular Filtration Rate > 60, Glucose Level 89, Calcium Level 9.3 Height (Feet): 5 Height (Inches): 10.00 Weight (Pounds): 155 General Appearance: lethargic EENT: normal ENT inspection Neck: normal alignment Cardiovascular: normal peripheral pulses, normal rate, regular rhythm Respiratory/Chest: chest wall non-tender, lungs clear, normal breath sounds Abdomen: normal bowel sounds, non tender, soft Extremities: non-tender Edema: no edema noted Arm (L), no edema noted Arm (R), no edema noted Leg (L), no edema noted Leg (R), no edema noted Pedal (L), no edema noted Pedal (R), no edema noted Generalized Neurologic: responsive, motor weakness Skin: normal pigmentation, warm/dry JEFFREY DE LA CRUZ Nov 27, 2017 13:28
--- NOTE | 2017-11-27 14:22 | Wound Nurse Progress Note ---
Wound RN Progress Note Wound Consult pt. is under the care of doctor mendosa. follow md orders for lower extremity wound ABIDA URBINA Nov 27, 2017 14:22
[2017-11-27] MEDS ORDERED: ACETAMINOPHEN325 M1 ORAL (15:36)
[2017-11-27] MEDS ORDERED: NORCO 5-325 TA1 EAC1 ORAL (15:39)
[2017-11-27] MEDS ORDERED: NOVOLOG100 UNIT/5 SQ (15:42)
[2017-11-27] MEDS ORDERED: ZOFRAN4 M1 ORAL (15:44)
[2017-11-27] MEDS ORDERED: AMBIEN5 MG ORAL (15:47)
[2017-11-27] MEDS ORDERED: VANCOMYCIN1 GM/2502 IVPB (15:49)
[2017-11-27 16:00] VITALS: BP 119/69
--- NOTE | 2017-11-27 16:00 | Consultation ---
DATE OF CONSULTATION: 11/27/2017 CONSULTING PHYSICIAN: Diogo Barr D.P.M. REQUESTING PHYSICIAN: Jarek Gonzalez D.O. REASON FOR CONSULTATION: Left lower extremity wounds in the presence of diabetes mellitus. HISTORY OF PRESENT ILLNESS: The patient is a 67-year-old male, who was admitted to [facility] on 11/24/2017 for acute renal failure and dehydration. The patient states that he injured himself and that is how the wound has began. He is unclear about the time of this injury. The patient states that it is mildly painful. PAST MEDICAL HISTORY: Significant for diabetes mellitus, hypertension, encephalopathy, gastroesophageal reflux disease, atherosclerotic heart disease, anemia, chronic obstructive pulmonary disease, and history of acute renal failure. MEDICATIONS: Per DEC. ALLERGIES: He is allergic to penicillin and thioridazine. FAMILY HISTORY: Noncontributory. SOCIAL HISTORY: Positive for smoking and the patient resides at a [facility] facility. REVIEW OF SYSTEMS: HEENT: The patient denies any headaches, blurred vision, or ringing in the ears. CARDIORESPIRATORY: The patient denies any chest pain or shortness of breath. GENITOURINARY: The patient denies any urgency, frequency, burning upon urination, or hematuria. GASTROINTESTINAL: The patient denies any constipation, diarrhea, or blood in stool. PHYSICAL EXAMINATION: VITAL SIGNS: Temperature is 98.4, pulse is 90, respiratory rate 20, blood pressure is 121/63, and saturating 99% on room air. EXTREMITIES: Lower Extremity: Vascular, nonpalpable pedal pulses noted bilaterally. Feet are equally warm. There is no edema or cyanosis noted. DERMATOLOGIC: Right side is unremarkable. Left side has a full-thickness ulcerations noted on the medial and lateral aspects of the left ankle. There is a slight malodor to the wounds. There is serous drainage noted bilaterally. No deep structures are noted. Wound base is fibrotic. NEUROLOGICAL: Protective thresholds intact. MUSCULOSKELETAL: No gross deformities noted. The patient has difficulty ambulating. LABORATORY DATA: White blood cell count is 7.6, hemoglobin and hematocrit is 9.5 and 29.9, and platelet count is 193,000. His sedimentation rate is 118. Potassium is 5.2, BUN is 20, and creatinine is 1.2. Uric acid is 7.1. Albumin is 2.7. Total protein is 7.7. INR is 1.0. ASSESSMENT: 1. Cellulitis of the left lower extremity. 2. Non-pressure ulcers of the left ankle to subcutaneous. 3. Diabetes mellitus. 4. Psych issues. PLAN: 1. Wound cultures were ordered. Start on vancomycin with pharmacy to dose. 2. New wound care orders were placed to consist of cleaning the wounds with normal saline, patting it dry, applying Betadine solution, and covering it with calcium alginate and dry dressing daily. 3. X-rays 3-views of the left ankle were ordered. Arterial ultrasound of bilateral lower extremities was also ordered. 4. Strict glycemic control for optimal wound healing. 5. We will follow. Thank you for the courtesy of this consultation, Dr. Gonzalez. Diogo Barr D.P.M. DR: CHON JOB#: [id number] CC:
--- NOTE | 2017-11-27 16:53 | Pulmonology Progress Note ---
Assessment/Plan Problems: (1) Acute kidney failure (2) Diabetes (3) Anemia (4) Hypertension (5) Schizoaffective disorder Assessment/Plan improving walking onthe pollard way check electroltyes stool for ob abdominal Us pending monitor BP dvt prophylaxis psych evaluation Subjective ROS Limited/Unobtainable: No Constitutional: Reports: no symptoms Respiratory: Reports: no symptoms Allergies: Coded Allergies: THIORIDAZINE (Unverified Allergy, Mild, HIVES, 04/06/15) PENICILLIN (Unverified Allergy, Unknown, 06/15/15) PENICILLINS (Unverified Allergy, Unknown, 11/24/17) Objective Last 24 Hour Vital Signs Date Time Temp Pulse Resp B/P (MAP) Pulse Ox O2 Delivery O2 Flow Rate FiO2 11/27/17 16:00 97.9 84 20 119/69 100 11/27/17 12:00 97.9 90 20 113/65 97 11/27/17 09:17 121/63 11/27/17 09:17 90 121/63 11/27/17 08:00 98.4 90 20 121/63 99 11/27/17 04:00 98.1 99 20 118/57 98 11/27/17 00:00 98.1 98 20 117/56 98 11/26/17 21:38 165/69 11/26/17 20:46 97.0 90 19 129/69 96 11/26/17 18:48 97.0 90 19 135/66 97 Room Air 11/26/17 18:39 100 18 116/70 100 Room Air 11/26/17 18:15 97.7 108 20 147/82 98 Room Air Intake and Output 11/26/17 11/27/17 19:00 07:00 Intake Total 840 ml 480 ml Output Total 1150 ml Balance 840 ml -670 ml Intake Oral 840 ml 480 ml Output Urine Total 1150 ml # Voids 5 Objective General Appearance: cachetic Lines, tubes and drains: peripheral HEENT: normocephalic, atraumatic Neck: non-tender, normal alignment Respiratory/Chest: chest wall non-tender, lungs clear Breasts: no masses Cardiovascular/Chest: normal peripheral pulses Abdomen: normal bowel sounds, non tender Genitourinary/Rectal: normal genital exam, normal rectal exam Extremities: normal range of motion Microbiology Date/Time Source Procedure Growth Status 11/25/17 01:17 Nasal Nares MRSA Culture - Final NO METHICILLIN RESISTANT STAPH AUREUS... Complete 11/25/17 01:17 Rectum VRE Culture - Final NO VANCOMYCIN RESISTANT ENTEROCOCCUS ... Complete Laboratory Tests 11/27/17 04:00: Urine Eosinophils None seen 11/27/17 05:40: White Blood Count 7.6, Red Blood Count 3.22L, Hemoglobin 9.5L, Hematocrit 29.9L , Mean Corpuscular Volume 93, Mean Corpuscular Hemoglobin 29.5, Mean Corpuscular Hemoglobin Concent 31.7L, Red Cell Distribution Width 13.2, Platelet Count 193, Mean Platelet Volume 8.5, Neutrophils (%) (Auto) 50.2, Lymphocytes (%) (Auto) 33.8, Monocytes (%) (Auto) 10.6H, Eosinophils (%) (Auto) 4.6H, Basophils (%) (Auto) 0.8, Sodium Level 141, Potassium Level 5.2H, Chloride Level 106, Carbon Dioxide Level 26, Anion Gap 9, Blood Urea Nitrogen 20H, Creatinine 1.2, Estimat Glomerular Filtration Rate > 60, Glucose Level 89, Calcium Level 9.3 Current Medications Medications (Trade) Dose Ordered Sig/Taco Route PRN Reason Start Time Stop Time Status Last Admin Dose Admin Acetaminophen (Tylenol) 650 mg Q4H PRN ORAL fever 11/25/17 05:00 12/25/17 04:59 11/26/17 03:22 Acetaminophen/ Hydrocodone Bitart ([place]erson 5/325) 1 tab Q6H PRN ORAL For Pain 11/26/17 17:00 12/03/17 16:59 11/26/17 17:08 Al Hydroxide/Mg Hydroxide (Mylanta II) 30 ml Q6H PRN ORAL dyspepsia 11/25/17 05:00 12/25/17 04:59 Amlodipine Besylate (Norvasc) 10 mg DAILY ORAL 11/25/17 09:00 12/25/17 08:59 11/27/17 09:17 Benazepril HCl (Lotensin) 10 mg DAILY ORAL 11/25/17 09:00 12/25/17 08:59 11/27/17 09:17 Clonidine HCl (Catapres Tab) 0.1 mg EVERY 6 HOURS PRN ORAL SBP>160 11/25/17 09:00 12/25/17 08:59 11/26/17 21:38 Clopidogrel Bisulfate (Plavix) 75 mg DAILY ORAL 11/25/17 09:00 12/25/17 08:59 11/27/17 09:17 Dextrose (Dextrose 50%) STAT PRN IV Hypoglycemia 11/25/17 05:00 12/25/17 04:59 Divalproex Sodium (Depakote) 250 mg Q12HR ORAL 11/25/17 09:00 12/25/17 08:59 11/27/17 09:18 Haloperidol Lactate 5 mg/ Dextrose 56 ml @ 224 mls/hr Q4H PRN IVPB agitation 11/25/17 05:30 12/25/17 05:29 Insulin Aspart (NovoLOG) BEFORE MEALS AND HS SUBQ 11/25/17 06:30 12/25/17 06:29 11/26/17 21:40 Lorazepam (Ativan 2mg/ml 1ml) 1 mg Q4H PRN IV For Anxiety 11/25/17 18:00 12/02/17 17:59 11/26/17 12:40 Ondansetron HCl (Zofran) 4 mg Q6H PRN IVP Nausea & Vomiting 11/25/17 05:00 12/25/17 04:59 Polyethylene Glycol (Miralax) 17 gm HSPRN PRN ORAL Constipation 11/25/17 05:00 12/25/17 04:59 Quetiapine Fumarate (SEROquel) 100 mg THREE TIMES A DAY ORAL 11/25/17 09:00 12/25/17 08:59 11/27/17 13:58 Trazodone HCl (Desyrel) 100 mg BEDTIME ORAL 11/25/17 21:00 12/25/17 20:59 11/26/17 21:37 Vancomycin HCl (Vanco rx to dose) 1 ea DAILY PRN MISC Per rx protocol 11/27/17 09:00 12/27/17 08:59 Vancomycin HCl/ Dextrose 250 ml @ 125 mls/hr Q24H IVPB 11/27/17 10:00 12/02/17 09:59 11/27/17 13:58 Zolpidem Tartrate (Ambien) 5 mg HSPRN PRN ORAL Insomnia 11/25/17 05:00 12/02/17 04:59 11/26/17 21:37 KAREEM COREY Nov 27, 2017 16:53
--- NOTE | 2017-11-27 18:45 | Progress Note ---
DATE: 11/27/2017 SUBJECTIVE: This is a 67-year-old with acute renal failure, confused, disorganized, verbal. MENTAL STATUS EXAMINATION: This is a 67-year-old male with psychomotor agitation. Mood is irritable and agitated. Affect is guarded and restricted. Intellect is poor. paranoid delusions and disorganized thought process. Insight and judgment are poor. DIAGNOSIS: Paranoid schizophrenia with acute exacerbation. PLAN: Continue present treatment with psychotropic meds to stabilize his mood. Chart reviewed and discussed with staff. Seen and assessed at bedside. Uziel Collado M.D. DR: TONYA JOB#: [id number] CC:
--- NOTE | 2017-11-28 07:00 | Progress Note ---
DATE: 11/26/2017 NOTE: POOR AUDIO PSYCHOTHERAPY CONSULTATION PROGRESS NOTE TREATING ATTENDING PHYSICIAN: Jarek Gonzalez D.O. SUBJECTIVE: This patient is a 67-year-old male patient, who was diagnosed with schizophrenia. The patient has been very agitated, irritable, argumentative. Refusing most of his treatment. He has been very agitated on the unit. reality orientation. The patient nursing staff. MENTAL STATUS EXAMINATION: The patient is alert and oriented x2, person and place. Mood is irritable. Affect is labile. Thought process is disorganized. Thought content, poor attention and concentration. Poor insight, judgment, and impulse control. PLAN: This clinician assessed this patient. The patient's mental status, provided the patient with reality orientation. Encouraging the patient to articulate his needs utilizing positive communication skills. impulse control continue with behavioral management. This clinician has reviewed the patient's chart. Discussed the treatment with treatment team. Irvin Zheng PsyD. : Tea JOB#: [id number] CC:
--- NOTE | 2017-11-28 12:51 | Discharge Summary ---
Discharge Summary Hospital Course Date of Admission Nov 24, 2017 at 22:26 Date of Discharge Nov 27, 2017 at 17:30 Admitting Diagnosis ARF, dehydration HPI Elian Jackman is a 67 year old male who was admitted on Nov 24, 2017 at 22:26 for Acute Renal Failure, Dehydration Hospital Course dc summary #[id number] Discharge Medications Continued Medications: Acetaminophen* (Acetaminophen 325MG Tablet*) 325 Mg Tablet 650 MG ORAL Q4H PRN for For Pain, TAB Al Hydroxide/mg Hydroxide (Mag-Al Plus Suspension) 30 Ml Susp 30 ML PO Q6HR PRN for gastric pain Amlodipine Besylate* (Amlodipine Besylate*) 10 Mg Tablet 10 MG ORAL DAILY HOLD FOR SBP<110 HR<60 Benazepril Hcl* (Benazepril Hcl*) 10 Mg Tablet 10 MG ORAL DAILY, TAB Clonidine Hcl* (Catapres*) 0.1 Mg Tablet 0.1 MG ORAL EVERY 6 HOURS PRN for For High Blood Pressure, TAB Clopidogrel Bisulfate* (Plavix*) 75 Mg Tablet 75 MG ORAL DAILY, TAB Divalproex Sodium* (Depakote*) 250 Mg Tablet.dr 250 MG PO Q12HR, TAB Hydrocodone Bit/Acetaminophen 5-325* (Arlee 5-325*) 1 Each Tablet 1 TAB ORAL Q6H PRN for For Pain, #20 TAB Insulin Aspart (Novolog) 100 Unit/1 Ml Vial SQ AC+HS Ondansetron (Zofran) 4 Mg Tablet 4 MG ORAL Q6H PRN for Nausea & Vomiting, TAB Polyethylene Glycol 3350* (Miralax*) 17 Gm Powd.pack 17 GM ORAL DAILY PRN for Constipation, PACKET Quetiapine Fumarate* (Seroquel*) 100 Mg Tablet 100 MG ORAL THREE TIMES A DAY Trazodone Hcl* (Desyrel*) 100 Mg Tablet 100 MG ORAL BEDTIME, TAB Vancomycin Hcl/D5w (Vancomycin-D5w 1 G/250 Ml) 1 Gm/250 Ml Plast..bag 1.5 GM IVPB Q24H for 5 Days, BAG Zolpidem Tartrate* (Ambien*) 5 Mg Tablet 5 MG ORAL BEDTIME PRN for Insomnia, TAB Discharge Condition Upon Discharge: stable Discharge Disposition Patient was discharged to SNF/Subacute Facility(03) Discharge Diagnoses: Discharge Instructions Discharge Instructions Special Instructions I have been assigned to complete a D/C Summary on this account. I was not involved in the patient management Giuliana Kinney NP (Vanchtein) Nov 28, 2017 12:51
--- NOTE | 2017-12-01 12:56 | Discharge Summary 2 SIG ---
DATE OF ADMISSION: 11/24/2017 DATE OF DISCHARGE: 11/27/2017 REASON FOR ADMISSION: 67-year-old male, resident of snf facility with past medical history significant for hypertension, encephalopathy , left lower extremity wound, COPD, schizophrenia, and diabetes, presented after being agitated and threatened staff. No fever. No chills. No nausea. No vomiting. The patient did not take medications for three days. Workup in the emergency room revealed evidence of acute kidney failure. Chest x-ray revealed no acute cardiopulmonary pathology. Hemoglobin -9.8 and hematocrit -30.4. No leukocytosis. Vital signs unremarkable. The patient was admitted with diagnosis of dehydration, acute renal failure likely secondary to dehydration, agitation, anemia, diabetes, hypertension, and schizophrenia. HOSPITAL COURSE: The patient was admitted. The patient was hydrated with IV fluids. Renal workup was initiated. Renal and abdominal ultrasound were ordered. The patient declined both. Blood pressure and blood sugar were managed with current regimen. Both remained stable. Venous duplex of bilateral lower extremities was negative. Bilateral hip and pelvis x-ray revealed no gross acute bony trauma. Lateral ankle x-ray revealed no evidence of acute trauma. Industrial Cook had seen and evaluated the patient. He diagnosed the patient with cellulitis of left lower extremity and started the patient on empiric antibiotics. Arterial duplex was ordered. X-ray of the left ankle revealed no acute findings. Wound care provided. Anemia workup was consistent with anemia of chronic disease. Counts were closely monitored, remained on the baseline. Nephrotoxics were avoided. The patient declined renal and abdominal ultrasound. Electrolytes corrected as needed. Renal parameters trending down. BUN down to 20 and creatinine down to 1.2. Psychiatrist had seen and evaluated the patient, diagnosed the patient with paranoid schizophrenia with acute exacerbation. Psychiatric medication regimen was optimized. The patient was working with physical and occupational therapists. Nutritional recommendations were implemented. After being stabilized, the patient was stable for transfer back to snf facility. FINAL DIAGNOSES: 1. Dehydration. 2. Acute renal failure, likely secondary to dehydration. 3. Agitation, resolved. 4. Anemia of chronic disease. 5. Diabetes. 6. Hypertension. 7. Cellulitis of left lower extremity. 8. Non-pressure ulcer, left ankle, subcutaneous. 9. Paranoid schizophrenia with acute exacerbation. DISCHARGE MEDICATIONS: See medication reconciliation list. DISCHARGE INSTRUCTIONS: The patient discharged to snf facility. FOLLOWUP: Follow up with medical doctor at the facility. Jarek Gonzalez D.O. I have been assigned to dictate discharge summary on this account and I was not involved in the patient's management. Giuliana SantiagoColumbia University Irving Medical Centeranais NCelioPCelio DR: LOVELY JOB#: [id number] CC: DESI
--- NOTE | 2017-12-05 11:43 | Diagnostic Imaging Report ---
APPROVED REPORT CPT Code: 51412 Present Symptoms Lower Extremity Pain: Left Lower Extremity Edema: Bilateral BILATERAL: Imaging reveals a patent deep venous system bilaterally. There is no evidence of thrombus within the femoral, popliteal or tibial segments. The greater saphenous veins are also within normal limits. Doppler indicates normal spontaneous flow within these segments.
--- NOTE | 2017-12-05 11:43 | Diagnostic Imaging Report ---
APPROVED REPORT CPT Code: 60454 Symptoms Non-healing Ulcer : Left Comments: Pain RIGHT LEG: Common femoral artery waveform analysis is within normal limits at rest. Color flow duplex sonography reveals calcification throughout the superficial femoral and popliteal arteries. There is no evidence of stenosis or occlusion within these segments. The tibioperoneal trunks are not well visualized. The posterior tibial, anterior tibial and dorsalis pedis arteries are also calcified. Doppler tibial artery waveform analysis is biphasic, consistent with minimal ischemia at rest. 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 Color flow duplex sonography reveals calcification throughout the superficial femoral and popliteal arteries. There is no evidence of stenosis or occlusion within these segments. The tibioperoneal trunk was not well visualized. The dorsalis pedis artery was also not well visualized. The posterior tibial, and anterior tibial and arteries are also calcified. Doppler posterior tibial artery waveform analysis is monophasic, consistent with moderate ischemia at rest.
== END 2017-11-27 17:30 | DRG 683 ==
LOC: EDUNIT# 20:42 → EDBD 20:42 → EMR 21:15 → EDBEDREQ 22:20 → 4W 22:26 → EDBEDREQ 22:58 → 4W 11-25 19:49
DX: N17.9 Acute kidney failure, unspecified (principal); L03.116 Cellulitis of left lower limb; I10 Essential (primary) hypertension; L97.328 Non-pressure chronic ulcer of left ankle with other specified severity; E11.9 Type 2 diabetes mellitus without complications; D63.8 Anemia in other chronic diseases classified elsewhere; F20.0 Paranoid schizophrenia; E86.0 Dehydration; R45.1 Restlessness and agitation; Z88.0 Allergy status to penicillin; Z88.8 Allergy status to other drugs, medicaments and biological substances; I25.10 Atherosclerotic heart disease of native coronary artery without angina pectoris; K21.9 Gastro-esophageal reflux disease without esophagitis
CPT/HCPCS: 36415; 71045; 73521; 80048; 80053; 80061; 81001; 82378; 82550; 82607; 82746; 82962; 83540; 83550; 83615; 84133; 84300; 84443; 84484; 84550; 85007; 85025; 85044; 85060; 85610; 85651; 85730; 87081; 89050; 93925; 93970; 99285; J1815

== ENCOUNTER 2018-12-26 11:04 | Inpatient (IN) | payer MEDICARE, OTHER ==
[~2018-12-26] VITALS: Ht 177.8 cm; Wt 57.3 kg
[~2018-12-26 11:04] MED LIST changes: +ACETAMINOPHEN325 M1 ORAL; +AMBIEN5 MG ORAL; +AMLODIPINE BESY10 MG ORAL; +ASCORBIC ACID500 MG ORAL; +BENAZEPRIL HCL10 MG ORAL; +BISACODYL5 MG RECTAL; +DEPAKOTE250 MG PO; +FOLIC ACID1 MG ORAL; +GLUCAGEN1 M1 IJ; +LEXAPRO20 MG ORAL; +LORAZEPAM1 MG ORAL; +MILK OF MA400 MG/51 ORAL; +NEPHROVITE1 TAB ORAL; +NEURONTIN100 MG ORAL; +NOVOLOG100 UNIT/5 SQ; +PLAVIX75 MG ORAL; +PROTONIX40 MG ORAL; +SEROQUEL100 MG ORAL; +TEMAZEPAM15 MG ORAL; +VANCOMYCIN1 GM/2502 IVPB; +VIRT-CAPS SOFTGE1 MG PO; +VITAMIN C500 M1 ORAL; +ZINC SULFATE220 M1 ORAL; +ZOFRAN4 M1 ORAL
[2018-12-26 11:52] VITALS: BP 137/76
--- NOTE | 2018-12-26 11:56 | NUR ---
ED Nurse Note:pt. was BIBA from SNF with infected left ankle ulcer from both sides of leg, blood was sent to labs with cultures of wound and blood,wound photo was taken and IV meds given
[2018-12-26] MEDS ORDERED: Morphine Sulfate 4mg/ml Inj (IV USE ONLY) IVP ONE (12:15)
[2018-12-26 12:21] LABS: BASOPHILS % (AUTO) 2.3 % (0.0-2.0); EOSINOPHILS % (AUTO) 2.6 % (0.0-3.0); HEMATOCRIT 31.9 % (42.0-52.0); HEMOGLOBIN 9.9 G/DL (14.2-18.0); LYMPHOCYTES % (AUTO) 14.7 % (20.0-45.0); MEAN CORPUSCULAR VOLUME 92 FL (80-99); MONOCYTES % (AUTO) 8.3 % (1.0-10.0); PLATELET COUNT 261 K/UL (150-450); RED BLOOD COUNT 3.46 M/UL (4.70-6.10); WHITE BLOOD COUNT 12.2 K/UL (4.8-10.8)
[2018-12-26 12:23] LABS: ANION GAP 6 mmol/L (5-15); BLOOD UREA NITROGEN 18 mg/dL (7-18); CALCIUM 9.7 MG/DL (8.5-10.1); CARBON DIOXIDE 30 MMOL/L (21-32); CHLORIDE 99 MMOL/L (98-107); CREATININE 1.1 MG/DL (0.55-1.30); POTASSIUM 4.5 MMOL/L (3.5-5.1); SODIUM 135 MMOL/L (136-145)
[2018-12-26 12:28] LABS: ALANINE AMINOTRANSFERASE 15 U/L (12-78); ALBUMIN 2.7 G/DL (3.4-5.0); ALBUMIN/GLOBULIN RATIO 0.4 (1.0-2.7); ALKALINE PHOSPHATASE 122 U/L (46-116); ASPARTATE AMINO TRANSFERASE 15 U/L (15-37); BILIRUBIN,TOTAL 0.1 MG/DL (0.2-1.0)
--- NOTE | 2018-12-26 12:55 | NUR ---
ED Nurse Note: Contacted Pharmacy regarding vancomycin, Pharmacist informed me that she will be changing the order from the premix to the powder.
[2018-12-26] MEDS ORDERED: VANCOMYCIN 1.5 GM IVPB ONE (13:00)
[2018-12-26] MEDS ORDERED: Vancomycin 1.5 GM in D5W 275 ML IVPB ONE (13:15)
[2018-12-26 14:21] VITALS: BP 132/73
--- NOTE | 2018-12-26 14:32 | Emergency Room Report ---
History of Present Illness General Chief Complaint: Wound Recheck/Suture Removal Source: Medical Record, EMS Present Illness HPI 68-year-old male presents ED for evaluation. Patient brought in by EMS for ulcer to the left leg. Coming from [facility] facility. States is been there for a long time. States the pain is getting worse. Pain is throbbing, 10 out of 10, nonradiating. Denies fevers or chills. Denies chest pain or shortness of breath. No other aggravating relieving factors. Denies any other associated symptoms Allergies: Coded Allergies: THIORIDAZINE (Unverified Allergy, Mild, HIVES, 04/06/15) PENICILLIN (Unverified Allergy, Unknown, 06/15/15) PENICILLINS (Unverified Allergy, Unknown, 11/24/17) Patient History Past Medical History: DM, HTN, COPD Social History: Denies: smoking, alcohol use, drug use Immunizations: UTD Reviewed Nursing Documentation: PMH: Agreed; PSxH: Agreed Nursing Documentation-PMH Hx Hypertension: Yes Hx COPD: Yes - Acute Resp. distress Hx Diabetes: Yes Hx Cancer: No Hx Neurological Problems: Yes Hx Peripheral Neuropathy: Yes Review of Systems All Other Systems: negative except mentioned in HPI Physical Exam Vital Signs Date Time Temp Pulse Resp B/P (MAP) Pulse Ox O2 Delivery O2 Flow Rate FiO2 12/26/18 11:09 97.5 82 20 137/76 97 Room Air Sp02 EP Interpretation: reviewed, normal General Appearance: no apparent distress, alert, GCS 15, non-toxic Head: normocephalic, atraumatic Eyes: bilateral eye normal inspection, bilateral eye PERRL ENT: hearing 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, normal pharynx, no angioedema, normal voice Neck: full range of motion, supple/symm/no masses Respiratory: chest non-tender, lungs clear, normal breath sounds, speaking full sentences Cardiovascular #1: regular rate, rhythm, no edema Cardiovascular #2: 2+ carotid (R), 2+ carotid (L), 2+ radial (R), 2+ radial (L) , 2+ dorsalis pedis (R), 2+ dorsalis pedis (L) Gastrointestinal: normal bowel sounds, non tender, soft, non-distended, no guarding, no rebound Rectal: deferred Genitourinary: normal inspection, no CVA tenderness Musculoskeletal: back normal, gait/station normal, normal range of motion, non- tender Neurologic: alert, oriented x3, responsive, motor strength/tone normal, sensory intact, speech normal Psychiatric: judgement/insight normal, memory normal, mood/affect normal, no suicidal/homicidal ideation Reflexes: 3+ bicep (R), 3+ bicep (L), 3+ tricep (R), 3+ tricep (L), 3+ knee (R) , 3+ knee (L) Skin: other - large ulcer to L ankle. surrounding erythema/induration Lymphatic: no adenopathy Medical Decision Making Diagnostic Impression: Primary Impression: Ulcer of left ankle Qualified Codes: L97.329 - Non-pressure chronic ulcer of left ankle with unspecified severity ER Course Hospital Course 68 yo M presents to ED with large ulcer to L ankle Differential diagnoses include: Cellulitis, abscess, rash. Clinical course Patient placed on stretcher. After initial history and physical I ordered labs , blood Cx, wound Cx labs reviewed - leukocytosis, Hb/Hct stable, no electrolyte abnormalities. wound culture obtained antibiotics given. Case discussed with Dr Gonzalez and he agreed to accept the patient to his service for further care and support Diagnosis - ulcer of L ankle Patient admitted to floor in serious condition Labs Test 12/26/18 12:00 White Blood Count 12.2 K/UL (4.8-10.8) Red Blood Count 3.46 M/UL (4.70-6.10) Hemoglobin 9.9 G/DL (14.2-18.0) Hematocrit 31.9 % (42.0-52.0) Mean Corpuscular Volume 92 FL (80-99) Mean Corpuscular Hemoglobin 28.8 PG (27.0-31.0) Mean Corpuscular Hemoglobin Concent 31.1 G/DL (32.0-36.0) Red Cell Distribution Width 14.0 % (11.6-14.8) Platelet Count 261 K/UL (150-450) Mean Platelet Volume 6.0 FL (6.5-10.1) Neutrophils (%) (Auto) 72.0 % (45.0-75.0) Lymphocytes (%) (Auto) 14.7 % (20.0-45.0) Monocytes (%) (Auto) 8.3 % (1.0-10.0) Eosinophils (%) (Auto) 2.6 % (0.0-3.0) Basophils (%) (Auto) 2.3 % (0.0-2.0) Sodium Level 135 MMOL/L (136-145) Potassium Level 4.5 MMOL/L (3.5-5.1) Chloride Level 99 MMOL/L (98-107) Carbon Dioxide Level 30 MMOL/L (21-32) Anion Gap 6 mmol/L (5-15) Blood Urea Nitrogen 18 mg/dL (7-18) Creatinine 1.1 MG/DL (0.55-1.30) Estimat Glomerular Filtration Rate > 60 mL/min (>60) Glucose Level 76 MG/DL (74-106) Lactic Acid Level 1.80 mmol/L (0.4-2.0) Calcium Level 9.7 MG/DL (8.5-10.1) Total Bilirubin 0.1 MG/DL (0.2-1.0) Aspartate Amino Transf (AST/SGOT) 15 U/L (15-37) Alanine Aminotransferase (ALT/SGPT) 15 U/L (12-78) Alkaline Phosphatase 122 U/L (46-116) Total Protein 9.3 G/DL (6.4-8.2) Albumin 2.7 G/DL (3.4-5.0) Globulin 6.6 g/dL Albumin/Globulin Ratio 0.4 (1.0-2.7) Last Vital Signs Date Time Temp Pulse Resp B/P (MAP) Pulse Ox O2 Delivery O2 Flow Rate FiO2 12/26/18 14:21 97.5 85 18 132/73 97 Room Air Status: improved Disposition: ADMITTED INPATIENT Condition: Serious Referrals: Jarek Gonzalez DO (PCP) Cole Maurice MD Dec 26, 2018 14:32
[2018-12-26] MEDS ORDERED: FLEET ENEMA133 ML RECTAL (14:48)
[2018-12-26] MEDS ORDERED: FLUPHENAZINE HCL5 MG ORAL (14:48)
[2018-12-26] MEDS ORDERED: COLACE100 MG ORAL (14:48)
[2018-12-26] MEDS ORDERED: PAROXETINE HCL20 MG PO (14:48)
[2018-12-26] MEDS ORDERED: TAMSULOSIN HCL0.4 MG ORAL (14:48)
[2018-12-26] MEDS ORDERED: COREG3.125 MG ORAL (14:48)
[2018-12-26] MEDS ORDERED: FERROUS SULFAT325 MG ORAL (14:48)
--- NOTE | 2018-12-26 15:13 | Consultation ---
History of Present Illness General Date patient seen: Dec 26, 2018 Chief Complaint: Wound Recheck/Suture Removal Present Illness HPI 68 y/o M with hx of DM2, HTN, COPD, SNF resident presents to ED for evaluation of chronic L leg ulcer and pain. Denied f/c, CP, SOB upon admission. Allergies: Coded Allergies: THIORIDAZINE (Unverified Allergy, Mild, HIVES, 04/06/15) PENICILLIN (Unverified Allergy, Unknown, 06/15/15) PENICILLINS (Unverified Allergy, Unknown, 11/24/17) Medication History Scheduled Amlodipine Besylate* (Amlodipine Besylate*), 10 MG ORAL DAILY, (Reported) Ascorbic Acid* (Vitamin C*), 500 MG ORAL DAILY, (Reported) Ascorbic Acid* (Ascorbic Acid*), 500 MG ORAL DAILY, (Reported) Atorvastatin Calcium* (Atorvastatin Calcium*), 10 MG ORAL BEDTIME, (Reported) Benazepril Hcl* (Benazepril Hcl*), 10 MG ORAL DAILY, (Reported) Bisacodyl* (Dulcolax*), 10 MG RECTAL ONCE, (Reported) Carvedilol (Coreg), 3.125 MG ORAL EVERY 12 HOURS, (Reported) Clopidogrel Bisulfate* (Plavix*), 75 MG ORAL DAILY, (Reported) Divalproex Sodium* (Depakote*), 250 MG PO Q12HR, (Reported) Docusate Sodium* (Docusate Sodium*), 250 MG ORAL BID, (Reported) Docusate Sodium* (Colace*), 100 MG ORAL DAILY, (Reported) Escitalopram Oxalate* (Lexapro*), 20 MG ORAL DAILY, (Reported) Ferrous Sulfate* (Ferrous Sulfate*), 325 MG ORAL DAILY, (Reported) Fluphenazine Hcl* (Prolixin*), 5 MG ORAL TWICE A DAY, (Reported) Folic Acid* (Folic Acid*), 1 MG ORAL DAILY, (Reported) Gabapentin* (Neurontin*), 300 MG ORAL THREE TIMES A DAY, (Reported) Insulin Aspart (Novolog), SQ AC+HS, (Reported) Losartan Potassium* (Losartan Potassium*), 50 MG ORAL DAILY, (Reported) Magnesium Hydroxide* (Milk Of Magnesia*), 30 ML ORAL NEEDED, (Reported) Megestrol Acetate (Megestrol Acetate), 400 MG ORAL DAILY, (Reported) Na Phos,M-B/Na Phos,Di-Ba* (Fleet Enema*), 133 ML RECTAL DAILY, (Reported) Pantoprazole* (Protonix*), 40 MG ORAL DAILY, (Reported) Paroxetine Hcl* (Paxil*), 30 MG PO DAILY, (Reported) Quetiapine Fumarate* (Seroquel*), 100 MG ORAL THREE TIMES A DAY, (Reported) Ranitidine Hcl* (Zantac*), 150 MG ORAL BEDTIME, (Reported) Tamsulosin Hcl (Tamsulosin Hcl*), 0.4 MG ORAL BEDTIME, (Reported) Temazepam (Temazepam*), 15 MG ORAL QHS, (Reported) Trazodone Hcl* (Desyrel*), 100 MG ORAL BEDTIME, (Reported) Vancomycin Hcl/D5w (Vancomycin-D5w 1 G/250 Ml), 1.5 GM IVPB Q24H, (Reported) Vitamin B Cmplx/Vit C/Folic AC (Nephro-Elizabet Tablet), 1 TAB ORAL DAILY, (Reported ) Zinc Sulfate (Zinc Sulfate*), 220 MG ORAL DAILY, (Reported) Scheduled PRN Acetaminophen* (Acetaminophen 325MG Tablet*), 650 MG ORAL Q6H PRN for Prn Chest Pain, (Reported) Acetaminophen* (Acetaminophen 325MG Tablet*), 650 MG ORAL Q4H PRN for For Pain, (Reported) Al Hydroxide/mg Hydroxide (Mag-Al Plus Suspension), 30 ML PO Q6HR PRN for gastric pain, (Reported) Albuterol Sulfate* (Albuterol Sulfate Hhn*), 3 ML INH Q6H PRN for Shortness of Breath, (Reported) Clonidine Hcl* (Catapres*), 0.1 MG ORAL EVERY 6 HOURS PRN for For High Blood Pressure, (Reported) Clonidine Hcl* (Catapres*), 0.2 MG ORAL EVERY 4 HOURS PRN for For High Blood Pressure, (Reported) Diphenhydramine Hcl* (Benadryl Allergy*), 25 MG ORAL Q6H PRN for Itching, ( Reported) Hydrocodone Bit/Acetaminophen 5-325* (Barto 5-325*), 1 TAB ORAL Q6H PRN for For Pain Hydrocodone Bit/Acetaminophen 5-325* (Barto 5-325 Tablet*), 1 TAB ORAL Q6HR PRN for For Pain, (Reported) Lorazepam* (Lorazepam*), 1 MG ORAL EVERY 6 HOURS PRN for For Anxiety, (Reported) Nitroglycerin (Nitrostat), 0.4 MG SL Q5M X3 DOSES PRN for Chest Pain, (Reported) Ondansetron (Zofran), 4 MG ORAL Q6H PRN for Nausea & Vomiting, (Reported) Polyethylene Glycol 3350* (Miralax*), 17 GM ORAL DAILY PRN for Constipation, ( Reported) Polyethylene Glycol 3350* (Miralax*), 17 GM ORAL DAILY PRN for Constipation, ( Reported) Zolpidem Tartrate* (Ambien*), 5 MG ORAL BEDTIME PRN for Insomnia, (Reported) Miscellaneous Medications B Complex & C No.20/Folic Acid (Virt-Caps Softgel), 1 MG PO, (Reported) Glucagon,Human Recombinant (Glucagen), 1 MG IJ, (Reported) Patient History Healthcare decision maker Resuscitation status Advanced Directive on File Patient History Narrative Pmhx: as above Shx: Denies: smoking, alcohol use, drug use Fhx: non contributory Review of Systems All Other Systems: negative except mentioned in HPI Physical Exam Physical Exam Narrative General Appearance: no apparent distress, alert, non-toxic HEENT: normocephalic, atraumatic bilateral eye PERRL, normal pharynx Neck: full range of motion, supple/symm/no masses Respiratory: chest non-tender, lungs clear, normal breath sounds, speaking full sentences Cardiovascular : regular rate, rhythm, no edema Gastrointestinal: normal bowel sounds, non tender, soft, non-distended, no guarding, no rebound Genitourinary: normal inspection, no CVA tenderness Musculoskeletal: back normal, gait/station normal, normal range of motion, non- tender Neurologic: alert, oriented x3, responsive, motor strength/tone normal, sensory intact, speech normal Psychiatric: judgement/insight normal, memory normal, mood/affect normal, no suicidal/homicidal ideation Skin: other - large ulcer to L ankle. surrounding erythema/induration Last 24 Hour Vital Signs Date Time Temp Pulse Resp B/P (MAP) Pulse Ox O2 Delivery O2 Flow Rate FiO2 12/26/18 14:21 97.5 85 18 132/73 97 Room Air 12/26/18 13:24 97.5 12/26/18 11:52 97.5 20 137/76 97 Room Air 12/26/18 11:09 97.5 82 20 137/76 97 Room Air Laboratory Tests Test 12/26/18 12:00 White Blood Count 12.2 K/UL (4.8-10.8) H Red Blood Count 3.46 M/UL (4.70-6.10) L Hemoglobin 9.9 G/DL (14.2-18.0) L Hematocrit 31.9 % (42.0-52.0) L Mean Corpuscular Volume 92 FL (80-99) Mean Corpuscular Hemoglobin 28.8 PG (27.0-31.0) Mean Corpuscular Hemoglobin Concent 31.1 G/DL (32.0-36.0) L Red Cell Distribution Width 14.0 % (11.6-14.8) Platelet Count 261 K/UL (150-450) Mean Platelet Volume 6.0 FL (6.5-10.1) L Neutrophils (%) (Auto) 72.0 % (45.0-75.0) Lymphocytes (%) (Auto) 14.7 % (20.0-45.0) L Monocytes (%) (Auto) 8.3 % (1.0-10.0) Eosinophils (%) (Auto) 2.6 % (0.0-3.0) Basophils (%) (Auto) 2.3 % (0.0-2.0) H Sodium Level 135 MMOL/L (136-145) L Potassium Level 4.5 MMOL/L (3.5-5.1) Chloride Level 99 MMOL/L (98-107) Carbon Dioxide Level 30 MMOL/L (21-32) Anion Gap 6 mmol/L (5-15) Blood Urea Nitrogen 18 mg/dL (7-18) Creatinine 1.1 MG/DL (0.55-1.30) Estimat Glomerular Filtration Rate > 60 mL/min (>60) Glucose Level 76 MG/DL (74-106) Lactic Acid Level 1.80 mmol/L (0.4-2.0) Calcium Level 9.7 MG/DL (8.5-10.1) Total Bilirubin 0.1 MG/DL (0.2-1.0) L Aspartate Amino Transf (AST/SGOT) 15 U/L (15-37) Alanine Aminotransferase (ALT/SGPT) 15 U/L (12-78) Alkaline Phosphatase 122 U/L (46-116) H Total Protein 9.3 G/DL (6.4-8.2) H Albumin 2.7 G/DL (3.4-5.0) L Globulin 6.6 g/dL Albumin/Globulin Ratio 0.4 (1.0-2.7) L Height (Feet): 5 Height (Inches): 11.00 Weight (Pounds): 175 Medications Current Medications Medications (Trade) Dose Ordered Sig/Taco Route PRN Reason Start Time Stop Time Status Last Admin Dose Admin Vancomycin HCl 1.5 gm/Dextrose 275 ml @ 137.5 mls/ hr ONCE ONCE IVPB 12/26/18 13:15 12/26/18 15:14 12/26/18 13:06 Assessment/Plan Assessment/Plan Abx: IV Vancomycin x1 12/26 Assessment: L ankle ulcer- mild gavin wound cellulitis;ulcer itself not infected Afebrile Mild leukocytosis DM2 HTN COPD SNF resident Plan: -On IV vancomycin -f/u cx -Monitor CBC/CMP, temperatures -wound care Thank you for this consultation. Will continue to follow along with you. Discussed with Mireya Cheema M.D. Dec 26, 2018 15:13
--- NOTE | 2018-12-26 17:07 | NUR ---
ED Nurse Note:pt. was transfered to [facility], report given to Keyonna ESPINOZA
--- NOTE | 2018-12-26 17:30 | NUR ---
NURSE NOTES: Pt received from ED saturated required to be cleaned. Pt bandage is clean and intact per report of ED nurse wound care was rendered in ED . Pt is non ambulatory. Dr Gonzalez phoned to obtain orders
--- NOTE | 2018-12-26 18:14 | NUR ---
CASE MANAGEMENT: INITIAL REVIEW 12/26/2018 68 YO Pedro PINEDA FROM [facility] CC: WOUND RE-CHECK/SUTURE REMOVAL PMHx: DM. HTN. COPD. SI:LEFT ANKLE ULCER. CELLULITIS. T 97.5 HR 82 RR 20 B/P 137/76 SATS 97% ON RA WBC 12.2 NA 135 IS: NS BOLUS X1 MORPHINE IV X1 PATIENT ADMITTED TO MED/SURG 12/26/2018 @ 1242 DCP: PATIENT TO BE DISCHARGED TO SNF ONCE MEDICALLY CLEARED. PLAN OF CARE: ID CONSULT Addendum: 12/26/18 at 1946 by Connie Pa CM INTERQUAL MET FOR ACUTE
--- NOTE | 2018-12-26 18:16 | NUR ---
NURSE NOTES: Dr Rollins returned call to facility and informed financial writer to call Dr. Skinner. Susanne Pratt contacted, awaiting return call
--- NOTE | 2018-12-26 18:24 | NUR ---
NURSE NOTES: Dr Skinner phoned stated he would come to the [place] to place the orders. Informed of purpose of his admission, presence of bilateral foot ulcers
--- NOTE | 2018-12-26 18:53 | Consultation ---
History of Present Illness General Date patient seen: Dec 26, 2018 Reason for Hospitalization: Wound Recheck/Suture Removal Present Illness HPI 68 year old male half-way resident with multiple medical comorbidities and known left ankle large full thickness ulceration who presents with worsening pain in left ankle. States he has had this wound for near 40 years and it has progressively worsened. Does not like wound being manipulated or touched. he prefers to have it dressed and left alone. states pain 5/10 with radiation up the leg. no n/v/f/c. otherwise well. surgery called to evaluate wound and assist with care and management. patient seen, chart reviewed, patient examined. Allergies: Coded Allergies: THIORIDAZINE (Unverified Allergy, Mild, HIVES, 04/06/15) PENICILLIN (Unverified Allergy, Unknown, 06/15/15) PENICILLINS (Unverified Allergy, Unknown, 11/24/17) Medication History Scheduled Amlodipine Besylate* (Amlodipine Besylate*), 10 MG ORAL DAILY, (Reported) Ascorbic Acid* (Vitamin C*), 500 MG ORAL DAILY, (Reported) Ascorbic Acid* (Ascorbic Acid*), 500 MG ORAL DAILY, (Reported) Atorvastatin Calcium* (Atorvastatin Calcium*), 10 MG ORAL BEDTIME, (Reported) Benazepril Hcl* (Benazepril Hcl*), 10 MG ORAL DAILY, (Reported) Bisacodyl* (Dulcolax*), 10 MG RECTAL ONCE, (Reported) Carvedilol (Coreg), 3.125 MG ORAL EVERY 12 HOURS, (Reported) Clopidogrel Bisulfate* (Plavix*), 75 MG ORAL DAILY, (Reported) Divalproex Sodium* (Depakote*), 250 MG PO Q12HR, (Reported) Docusate Sodium* (Docusate Sodium*), 250 MG ORAL BID, (Reported) Docusate Sodium* (Colace*), 100 MG ORAL DAILY, (Reported) Escitalopram Oxalate* (Lexapro*), 20 MG ORAL DAILY, (Reported) Ferrous Sulfate* (Ferrous Sulfate*), 325 MG ORAL DAILY, (Reported) Fluphenazine Hcl* (Prolixin*), 5 MG ORAL TWICE A DAY, (Reported) Folic Acid* (Folic Acid*), 1 MG ORAL DAILY, (Reported) Gabapentin* (Neurontin*), 300 MG ORAL THREE TIMES A DAY, (Reported) Insulin Aspart (Novolog), SQ AC+HS, (Reported) Losartan Potassium* (Losartan Potassium*), 50 MG ORAL DAILY, (Reported) Magnesium Hydroxide* (Milk Of Magnesia*), 30 ML ORAL NEEDED, (Reported) Megestrol Acetate (Megestrol Acetate), 400 MG ORAL DAILY, (Reported) Na Phos,M-B/Na Phos,Di-Ba* (Fleet Enema*), 133 ML RECTAL DAILY, (Reported) Pantoprazole* (Protonix*), 40 MG ORAL DAILY, (Reported) Paroxetine Hcl* (Paxil*), 30 MG PO DAILY, (Reported) Quetiapine Fumarate* (Seroquel*), 100 MG ORAL THREE TIMES A DAY, (Reported) Ranitidine Hcl* (Zantac*), 150 MG ORAL BEDTIME, (Reported) Tamsulosin Hcl (Tamsulosin Hcl*), 0.4 MG ORAL BEDTIME, (Reported) Temazepam (Temazepam*), 15 MG ORAL QHS, (Reported) Trazodone Hcl* (Desyrel*), 100 MG ORAL BEDTIME, (Reported) Vancomycin Hcl/D5w (Vancomycin-D5w 1 G/250 Ml), 1.5 GM IVPB Q24H, (Reported) Vitamin B Cmplx/Vit C/Folic AC (Nephro-Elizabet Tablet), 1 TAB ORAL DAILY, (Reported ) Zinc Sulfate (Zinc Sulfate*), 220 MG ORAL DAILY, (Reported) Scheduled PRN Acetaminophen* (Acetaminophen 325MG Tablet*), 650 MG ORAL Q6H PRN for Prn Chest Pain, (Reported) Acetaminophen* (Acetaminophen 325MG Tablet*), 650 MG ORAL Q4H PRN for For Pain, (Reported) Al Hydroxide/mg Hydroxide (Mag-Al Plus Suspension), 30 ML PO Q6HR PRN for gastric pain, (Reported) Albuterol Sulfate* (Albuterol Sulfate Hhn*), 3 ML INH Q6H PRN for Shortness of Breath, (Reported) Clonidine Hcl* (Catapres*), 0.1 MG ORAL EVERY 6 HOURS PRN for For High Blood Pressure, (Reported) Clonidine Hcl* (Catapres*), 0.2 MG ORAL EVERY 4 HOURS PRN for For High Blood Pressure, (Reported) Diphenhydramine Hcl* (Benadryl Allergy*), 25 MG ORAL Q6H PRN for Itching, ( Reported) Hydrocodone Bit/Acetaminophen 5-325* ([place] 5-325*), 1 TAB ORAL Q6H PRN for For Pain Hydrocodone Bit/Acetaminophen 5-325* ([place] 5-325 Tablet*), 1 TAB ORAL Q6HR PRN for For Pain, (Reported) Lorazepam* (Lorazepam*), 1 MG ORAL EVERY 6 HOURS PRN for For Anxiety, (Reported) Nitroglycerin (Nitrostat), 0.4 MG SL Q5M X3 DOSES PRN for Chest Pain, (Reported) Ondansetron (Zofran), 4 MG ORAL Q6H PRN for Nausea & Vomiting, (Reported) Polyethylene Glycol 3350* (Miralax*), 17 GM ORAL DAILY PRN for Constipation, ( Reported) Polyethylene Glycol 3350* (Miralax*), 17 GM ORAL DAILY PRN for Constipation, ( Reported) Zolpidem Tartrate* (Ambien*), 5 MG ORAL BEDTIME PRN for Insomnia, (Reported) Miscellaneous Medications B Complex & C No.20/Folic Acid (Virt-Caps Softgel), 1 MG PO, (Reported) Glucagon,Human Recombinant (Glucagen), 1 MG IJ, (Reported) Patient History History Provided By: Patient, Medical Record, PMD Healthcare decision maker Resuscitation status Advanced Directive on File Past Medical/Surgical History Past Medical/Surgical History: (1) Pelvic congestion syndrome (2) UTI (urinary tract infection) (3) Hypercholesteremia (4) Weight loss (5) Failure to thrive in adult (6) Abdominal pain (7) Chronic pain (8) Chronic pain (9) Schizoaffective disorder (10) Altered consciousness (11) SIRS (systemic inflammatory response syndrome) (12) Dehydration (13) Renal failure (14) Renal insufficiency (15) Diabetes (16) Schizoaffective disorder (17) Hypertension (18) Anemia (19) Acute kidney failure (20) Dehydration (21) Failure to thrive in adult (22) Dehydration (23) Ulcer of left ankle Review of Systems Review of Symptoms General ROS: no weight loss or fever Psychological ROS: no depression or mood changes, no memory loss Ophthalmic ROS: no visual changes or eye irritation ENT ROS: no nasal congestion, hearing loss, dizziness Allergy and Immunology ROS: no allergic symptoms or urticaria Hematological and Lymphatic ROS: no swollen glands, unusual bleeding or bruising Endocrine ROS: no polyuria, polydipsia, weight changes, temperature intolerance Respiratory ROS: no cough, shortness of breath, or wheezing Cardiovascular ROS: no chest pain or dyspnea on exertion Gastrointestinal ROS: denies abdominal pain, bright red blood in stool. Musculoskeletal ROS: no myalgias or arthralgias Neurological ROS: no TIA or stroke symptoms Dermatological ROS: no new or changing skin lesions, rashes or pruritis Physical Exam Physical Exam General appearance: alert, cooperative, no distress, appears stated age Head: Normocephalic, without obvious abnormality, atraumatic Eyes: conjunctivae/corneas clear. PERRL, EOM's intact. Fundi benign Throat: Lips, mucosa, and tongue normal. Teeth and gums normal Neck: supple, symmetrical, trachea midline, no adenopathy, thyroid: not enlarged, symmetric, no tenderness/mass/nodules, no carotid bruit and no JVD Lungs: clear to auscultation bilaterally Heart: regular rate and rhythm, S1, S2 normal, no murmur, click, rub or gallop Abdomen: soft, non-tender. Bowel sounds normal. No masses, no organomegaly Extremities: left ankle near circumferential full thickness ulceration, chronic with eschar and areas of granulation. no cellulitis. tender. no drainage. Pulses: 2+ and symmetric Skin: Skin color, texture, turgor normal. No rashes or lesions Neurologic: Grossly normal Last 24 Hour Vital Signs Date Time Temp Pulse Resp B/P (MAP) Pulse Ox O2 Delivery O2 Flow Rate FiO2 12/26/18 17:41 Room Air 12/26/18 17:05 97.5 85 18 132/73 97 Room Air 12/26/18 14:21 97.5 85 18 132/73 97 Room Air 12/26/18 13:24 97.5 12/26/18 11:52 97.5 20 137/76 97 Room Air 12/26/18 11:09 97.5 82 20 137/76 97 Room Air Laboratory Tests Test 12/26/18 12:00 White Blood Count 12.2 K/UL (4.8-10.8) H Red Blood Count 3.46 M/UL (4.70-6.10) L Hemoglobin 9.9 G/DL (14.2-18.0) L Hematocrit 31.9 % (42.0-52.0) L Mean Corpuscular Volume 92 FL (80-99) Mean Corpuscular Hemoglobin 28.8 PG (27.0-31.0) Mean Corpuscular Hemoglobin Concent 31.1 G/DL (32.0-36.0) L Red Cell Distribution Width 14.0 % (11.6-14.8) Platelet Count 261 K/UL (150-450) Mean Platelet Volume 6.0 FL (6.5-10.1) L Neutrophils (%) (Auto) 72.0 % (45.0-75.0) Lymphocytes (%) (Auto) 14.7 % (20.0-45.0) L Monocytes (%) (Auto) 8.3 % (1.0-10.0) Eosinophils (%) (Auto) 2.6 % (0.0-3.0) Basophils (%) (Auto) 2.3 % (0.0-2.0) H Sodium Level 135 MMOL/L (136-145) L Potassium Level 4.5 MMOL/L (3.5-5.1) Chloride Level 99 MMOL/L (98-107) Carbon Dioxide Level 30 MMOL/L (21-32) Anion Gap 6 mmol/L (5-15) Blood Urea Nitrogen 18 mg/dL (7-18) Creatinine 1.1 MG/DL (0.55-1.30) Estimat Glomerular Filtration Rate > 60 mL/min (>60) Glucose Level 76 MG/DL (74-106) Lactic Acid Level 1.80 mmol/L (0.4-2.0) Calcium Level 9.7 MG/DL (8.5-10.1) Total Bilirubin 0.1 MG/DL (0.2-1.0) L Aspartate Amino Transf (AST/SGOT) 15 U/L (15-37) Alanine Aminotransferase (ALT/SGPT) 15 U/L (12-78) Alkaline Phosphatase 122 U/L (46-116) H Total Protein 9.3 G/DL (6.4-8.2) H Albumin 2.7 G/DL (3.4-5.0) L Globulin 6.6 g/dL Albumin/Globulin Ratio 0.4 (1.0-2.7) L Height (Feet): 5 Height (Inches): 11.00 Weight (Pounds): 175 Assessment/Plan Problem List: (1) Ulcer of left ankle Assessment & Plan: large chronic left ankle ulceration near circumferential on left ankle. full thickness with eschar on some areas and some areas of granulation tissue. no drainage. no fluctuance. tender, periwound okay. pulses diminished. calf okay. foot with decreased cap refill. please see photos -wash left ankle daily with NS. apply xeroform to wound, ABD, and wrap with kerlix -venous and arterial duplex studies -plain films thank you will follow with recs. ICD Codes: L97.329 - Non-pressure chronic ulcer of left ankle with unspecified severity SNOMED: [id number], [id number] Qualifiers: Qualified Codes: L97.322 - Non-pressure chronic ulcer of left ankle with fat layer exposed MIPS Hospital declaration INPATIENT level of care is warranted for this patient because patient is a 89 year old with who presents with suspicion of . I have a high level of concern because . Patient is at high risk for . Plan of care/treatment include . Patient care is expected to be greater than 2 midnights. OBSERVATION level of care is warranted for this patient. Patient is a 89 year old with who presents with . Patient will be admitted for 1 midnight, but if additional night(s) is/are necessary, patient will be converted to inpatient status for the entire hospitalization Disposition: Once the patient is stable to leave the hospital, I anticipate the patient will likely be discharged to the following environment: Estimated discharge date: I spent 70 minutes on this patient's case, and minutes was dedicated to counseling and/or care coordination. MIPS ([employer]it-based Incentive Payment System) Applicable CPT: 79139, 75150 CHECK ALL THAT ARE MET: Measure #5 (CHF): All ages. Prescribe JOSH/ARB upon discharge for patients with left ventricular systolic dysfunction. If not, the reason is clearly documented in the medical chart. Measure #8 (CHF): All ages. Prescribe a beta ni upon discharge for patients with left ventricular systolic dysfunction. If not, the reason is clearly documented in the medical chart. Measure #47 Advance care plan or surrogate decision maker documented in the medical record. Measure #130 The provider has documented, updated, or reviewed the patients current medication list and has documented it in the patients note. Measure #374 (All): Send report to referring provider. Measure #407(Sepsis due to MSSA bacteremia): Age 18+ Patient treated with a beta-lactam antibiotic (Nafcillin, Oxacillin or Cefazolin) as definitive therapy. MEDICAL COMPLEXITY High complexity medical decision making (need 2/3 categories) Problem - need 4 points Acute/new problem with new plan for workup (4 points, 1 max) Acute/new problem without additional workup (3 points, 1 max) Unstable chronic problem actively being managed (2 point each, 2 max) Stable chronic problem actively being managed (1 point each, 2 max) Self-limited/transient process (constipation, muscle ache, etc) (1 point each , 2 max) Data - need 4 points Reviewed labs/imaging studies (1 points, 2 max) Independent review of imaging (EKG, xrays, etc) (2 points, 2 max) Discussed case with consult/other MD/RN (2 points, 2 max) High Risk - qualify if have one of the following: Severe exacerbation of acute problem, acute mental status change, IV narcotics , monitoring drug levels (vancomycin, INR, tacrolimus etc) Devon Sullivan Dec 26, 2018 18:53
[2018-12-26] MEDS ORDERED: Miralax 17gm pkt ORAL PRN ×2 (19:30→20:00)
[2018-12-26] MEDS ORDERED: Milk of Magnesia 30ml Ud ORAL SCH (19:30)
[2018-12-26] MEDS ORDERED: Albuterol ud Inhalation HHN PRN (19:30)
[2018-12-26] MEDS ORDERED: Nitroglycerin Subl 0.4mg tab SL PRN (19:30)
[2018-12-26] MEDS ORDERED: Albuterol/Ipratropium 3ml neb HHN PRN (19:30)
[2018-12-26] MEDS ORDERED: Dextrose 50% 25ml Syringe IV PRN (19:45)
--- NOTE | 2018-12-26 19:58 | NUR ---
NURSE NOTES: here seen pt, and has placed orders. Upon this writing Dr Cruz has not arrived the facility per his staement ETA 30 minutes. Oncoming nurse made aware.
--- NOTE | 2018-12-26 19:58 | NUR ---
NURSE NOTES: Received patient awake,alert,verbal,follows simple command,resting in bed,venous doppler being done.
[2018-12-26 20:00] VITALS: BP 151/75
[2018-12-26] MEDS ORDERED: Milk of Magnesia 30ml Ud ORAL PRN (20:00)
--- NOTE | 2018-12-26 20:00 | NUR ---
HAND-OFF: Report given to Candida ESPINOZA.
[2018-12-26] MEDS: NovoLOG Insulin Flexpen SUBQ SCH (21:00)
[2018-12-26] MEDS: Tamsulosin 0.4mg cap ORAL SCH (21:25)
[2018-12-26] MEDS: TraZODone 100mg tab ORAL SCH (21:25)
[2018-12-26] MEDS: Heparin 5000 units/ml inj SUBQ SCH (21:25)
--- NOTE | 2018-12-26 21:49 | NUR ---
NURSE NOTES: Patient refused wound care/change dressing at this time.
[2018-12-27] MEDS: Morphine Sulfate 2mg/ml Inj(IV/IM USE ONLY) IVP PRN ×3 (02:23→14:00)
--- NOTE | 2018-12-27 03:00 | NUR ---
NURSE NOTES: Dressing changed on his right ankle as ordered.
[2018-12-27] MEDS: Vancomycin 1 GM in D5W 275 ML IVPB SCH ×2 (03:58→16:51)
[2018-12-27 04:13] VITALS: BP 100/57
[2018-12-27] MEDS: NovoLOG Insulin Flexpen SUBQ SCH ×4 (06:19→21:00)
--- NOTE | 2018-12-27 07:15 | NUR ---
HAND-OFF: Report given to Janna Mckinney RN.
[2018-12-27 07:20] LABS: BASOPHILS % (AUTO) 2.3 % (0.0-2.0); EOSINOPHILS % (AUTO) 2.9 % (0.0-3.0); HEMATOCRIT 27.9 % (42.0-52.0); LYMPHOCYTES % (AUTO) 16.6 % (20.0-45.0); MEAN CORPUSCULAR VOLUME 91 FL (80-99); NEUTROPHILS % (AUTO) 68.3 % (45.0-75.0); PLATELET COUNT 238 K/UL (150-450); RED BLOOD COUNT 3.08 M/UL (4.70-6.10); RED CELL DISTRIBUTION WIDTH 14.1 % (11.6-14.8); WHITE BLOOD COUNT 11.4 K/UL (4.8-10.8)
[2018-12-27 07:28] LABS: ALANINE AMINOTRANSFERASE 11 U/L (12-78); ALBUMIN 2.3 G/DL (3.4-5.0); ALBUMIN/GLOBULIN RATIO 0.4 (1.0-2.7); ALKALINE PHOSPHATASE 102 U/L (46-116); ANION GAP 9 mmol/L (5-15); ASPARTATE AMINO TRANSFERASE 15 U/L (15-37); BILIRUBIN,TOTAL 0.2 MG/DL (0.2-1.0); BLOOD UREA NITROGEN 16 mg/dL (7-18); CALCIUM 9.2 MG/DL (8.5-10.1); CARBON DIOXIDE 26 MMOL/L (21-32); CHLORIDE 102 MMOL/L (98-107); CREATININE 1.2 MG/DL (0.55-1.30); POTASSIUM 4.4 MMOL/L (3.5-5.1); SODIUM 136 MMOL/L (136-145)
--- NOTE | 2018-12-27 07:31 | NUR ---
NURSE NOTES: Pt received sitting up eating breakfast. Requires to be repositioned , due to poor trunk control. Pt lacks understanding of safety measures, repeatedly has placed left leg out of bed. Alarm on. Informed this facility is not smoking. " I want a cigarette" Per report of outgoing nurse pt dressing changed, currently dry and intact.
[2018-12-27 08:00] VITALS: BP 134/58
[2018-12-27] MEDS: PARoxetine 10mg tab ORAL SCH (08:35)
[2018-12-27] MEDS: Benazepril 10mg tab ORAL SCH (08:35)
[2018-12-27] MEDS: Heparin 5000 units/ml inj SUBQ SCH ×2 (08:37→21:47)
--- NOTE | 2018-12-27 10:48 | Diagnostic Imaging Report ---
Indication: Left ankle pain Technique: 2 views of the left ankle Comparison: none Findings: Exam is limited due to the availability of only 2 views. There is some irregularity of the lateral soft tissues no definite acute fractures. No dislocations. No definite osteolytic lesions. The soft tissue irregularity is a new finding since the previous exam. The bones are osteoporotic. Impression: No definite acute bony process Possible lateral soft tissue irregularity-correlate with clinical findings
--- NOTE | 2018-12-27 10:49 | NUR ---
RADIOLOGY DEPT LEFT ANKLE X-RAYS PERFORMED.-P.DYE
--- NOTE | 2018-12-27 10:50 | NUR ---
RD ASSESSMENT & RECOMMENDATIONS SEE CARE ACTIVITY FOR COMPLETE ASSESSMENT DAILY ESTIMATED NEEDS: Needs based on wounds, DM 70.5kg 25-35 kcals/kg [id number] total kcals 1.25-1.5 g protein/kg 88-106 g total protein 25-30 mL/kg 0086-1683 total fluid mLs NUTRITION DIAGNOSIS: Increased protein needs r/t wound healing as evidenced by pt with L-ankle full thickness ulcer CURRENT DIET:[facility] MED PO DIET RECOMMENDATIONS: [facility] MED/ DOUBLE PROTEIN PORTIONS (texture as tolerated) ADDITIONAL RECOMMENDATIONS: 1) calibrated bed scale wts (Per SNF: 155#) 2) WOUND CARE: add YUNI BID + VIT C 250mg BID + MVI x1 3) Monitor po intake, need or snacks in b/w meals -> pt on multiple psych meds, may alter appetite
--- NOTE | 2018-12-27 11:52 | Consultation ---
History of Present Illness General Date patient seen: Dec 27, 2018 Chief Complaint: Wound Recheck/Suture Removal Present Illness HPI 68-year-old male with hx of DM, HTN, COPD, jail resident presented to ED for evaluation of ulcer to the left leg, getting worse. Pain is throbbing , 10 out of 10, nonradiating. Denies fevers or chills. Denies chest pain or shortness of breath. Pt is admitted for worsening of diabetic foot ulcer and cellulitis. Allergies: Coded Allergies: THIORIDAZINE (Unverified Allergy, Mild, HIVES, 04/06/15) PENICILLIN (Unverified Allergy, Unknown, 06/15/15) PENICILLINS (Unverified Allergy, Unknown, 11/24/17) Medication History Scheduled Amlodipine Besylate* (Amlodipine Besylate*), 10 MG ORAL DAILY, (Reported) Ascorbic Acid* (Vitamin C*), 500 MG ORAL DAILY, (Reported) Ascorbic Acid* (Ascorbic Acid*), 500 MG ORAL DAILY, (Reported) Atorvastatin Calcium* (Atorvastatin Calcium*), 10 MG ORAL BEDTIME, (Reported) Benazepril Hcl* (Benazepril Hcl*), 10 MG ORAL DAILY, (Reported) Bisacodyl* (Dulcolax*), 10 MG RECTAL ONCE, (Reported) Carvedilol (Coreg), 3.125 MG ORAL EVERY 12 HOURS, (Reported) Clopidogrel Bisulfate* (Plavix*), 75 MG ORAL DAILY, (Reported) Divalproex Sodium* (Depakote*), 250 MG PO Q12HR, (Reported) Docusate Sodium* (Docusate Sodium*), 250 MG ORAL BID, (Reported) Docusate Sodium* (Colace*), 100 MG ORAL DAILY, (Reported) Escitalopram Oxalate* (Lexapro*), 20 MG ORAL DAILY, (Reported) Ferrous Sulfate* (Ferrous Sulfate*), 325 MG ORAL DAILY, (Reported) Fluphenazine Hcl* (Prolixin*), 5 MG ORAL TWICE A DAY, (Reported) Folic Acid* (Folic Acid*), 1 MG ORAL DAILY, (Reported) Gabapentin* (Neurontin*), 300 MG ORAL THREE TIMES A DAY, (Reported) Insulin Aspart (Novolog), SQ AC+HS, (Reported) Losartan Potassium* (Losartan Potassium*), 50 MG ORAL DAILY, (Reported) Magnesium Hydroxide* (Milk Of Magnesia*), 30 ML ORAL NEEDED, (Reported) Megestrol Acetate (Megestrol Acetate), 400 MG ORAL DAILY, (Reported) Na Phos,M-B/Na Phos,Di-Ba* (Fleet Enema*), 133 ML RECTAL DAILY, (Reported) Pantoprazole* (Protonix*), 40 MG ORAL DAILY, (Reported) Paroxetine Hcl* (Paxil*), 30 MG PO DAILY, (Reported) Quetiapine Fumarate* (Seroquel*), 100 MG ORAL THREE TIMES A DAY, (Reported) Ranitidine Hcl* (Zantac*), 150 MG ORAL BEDTIME, (Reported) Tamsulosin Hcl (Tamsulosin Hcl*), 0.4 MG ORAL BEDTIME, (Reported) Temazepam (Temazepam*), 15 MG ORAL QHS, (Reported) Trazodone Hcl* (Desyrel*), 100 MG ORAL BEDTIME, (Reported) Vancomycin Hcl/D5w (Vancomycin-D5w 1 G/250 Ml), 1.5 GM IVPB Q24H, (Reported) Vitamin B Cmplx/Vit C/Folic AC (Nephro-Elizabet Tablet), 1 TAB ORAL DAILY, (Reported ) Zinc Sulfate (Zinc Sulfate*), 220 MG ORAL DAILY, (Reported) Scheduled PRN Acetaminophen* (Acetaminophen 325MG Tablet*), 650 MG ORAL Q6H PRN for Prn Chest Pain, (Reported) Acetaminophen* (Acetaminophen 325MG Tablet*), 650 MG ORAL Q4H PRN for For Pain, (Reported) Al Hydroxide/mg Hydroxide (Mag-Al Plus Suspension), 30 ML PO Q6HR PRN for gastric pain, (Reported) Albuterol Sulfate* (Albuterol Sulfate Hhn*), 3 ML INH Q6H PRN for Shortness of Breath, (Reported) Clonidine Hcl* (Catapres*), 0.1 MG ORAL EVERY 6 HOURS PRN for For High Blood Pressure, (Reported) Clonidine Hcl* (Catapres*), 0.2 MG ORAL EVERY 4 HOURS PRN for For High Blood Pressure, (Reported) Diphenhydramine Hcl* (Benadryl Allergy*), 25 MG ORAL Q6H PRN for Itching, ( Reported) Hydrocodone Bit/Acetaminophen 5-325* ([place] 5-325*), 1 TAB ORAL Q6H PRN for For Pain Hydrocodone Bit/Acetaminophen 5-325* ([place] 5-325 Tablet*), 1 TAB ORAL Q6HR PRN for For Pain, (Reported) Lorazepam* (Lorazepam*), 1 MG ORAL EVERY 6 HOURS PRN for For Anxiety, (Reported) Nitroglycerin (Nitrostat), 0.4 MG SL Q5M X3 DOSES PRN for Chest Pain, (Reported) Ondansetron (Zofran), 4 MG ORAL Q6H PRN for Nausea & Vomiting, (Reported) Polyethylene Glycol 3350* (Miralax*), 17 GM ORAL DAILY PRN for Constipation, ( Reported) Polyethylene Glycol 3350* (Miralax*), 17 GM ORAL DAILY PRN for Constipation, ( Reported) Zolpidem Tartrate* (Ambien*), 5 MG ORAL BEDTIME PRN for Insomnia, (Reported) Miscellaneous Medications B Complex & C No.20/Folic Acid (Virt-Caps Softgel), 1 MG PO, (Reported) Glucagon,Human Recombinant (Glucagen), 1 MG IJ, (Reported) Patient History Healthcare decision maker Resuscitation status Full Code Advanced Directive on File social service follow up required Past Medical/Surgical History Past Medical/Surgical History: (1) Diabetes (2) Schizoaffective disorder (3) Hypertension Review of Systems All Other Systems: negative except mentioned in HPI Physical Exam General Appearance: WD/WN Lines, tubes and drains: peripheral HEENT: normocephalic, atraumatic Neck: non-tender, supple Respiratory/Chest: chest wall non-tender, lungs clear Breasts: no masses Cardiovascular/Chest: normal rate, no JVD Abdomen: normal bowel sounds Genitourinary/Rectal: normal genital exam, heme negative stool Extremities: normal range of motion, other - right foot ulcer Skin Exam: other 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 Last 24 Hour Vital Signs Date Time Temp Pulse Resp B/P (MAP) Pulse Ox O2 Delivery O2 Flow Rate FiO2 12/27/18 08:35 133/68 12/27/18 08:34 84 133/68 12/27/18 04:13 99.0 98 18 100/57 (71) 97 12/27/18 02:53 97.8 12/26/18 21:00 Room Air 12/26/18 20:00 97.8 100 18 151/75 (100) 99 12/26/18 17:41 Room Air 12/26/18 17:05 97.5 85 18 132/73 97 Room Air 12/26/18 14:21 97.5 85 18 132/73 97 Room Air 12/26/18 13:24 97.5 12/26/18 11:52 97.5 20 137/76 97 Room Air Intake and Output 12/26/18 12/27/18 19:00 07:00 Intake Total 615.0 ml Balance 615.0 ml Intake Oral 340 ml IV Total 275.0 ml # Voids 1 Laboratory Tests Test 12/26/18 12:00 12/27/18 06:25 White Blood Count 12.2 K/UL (4.8-10.8) H 11.4 K/UL (4.8-10.8) H Red Blood Count 3.46 M/UL (4.70-6.10) L 3.08 M/UL (4.70-6.10) L Hemoglobin 9.9 G/DL (14.2-18.0) L 9.0 G/DL (14.2-18.0) L Hematocrit 31.9 % (42.0-52.0) L 27.9 % (42.0-52.0) L Mean Corpuscular Volume 92 FL (80-99) 91 FL (80-99) Mean Corpuscular Hemoglobin 28.8 PG (27.0-31.0) 29.3 PG (27.0-31.0) Mean Corpuscular Hemoglobin Concent 31.1 G/DL (32.0-36.0) L 32.2 G/DL (32.0-36.0) Red Cell Distribution Width 14.0 % (11.6-14.8) 14.1 % (11.6-14.8) Platelet Count 261 K/UL (150-450) 238 K/UL (150-450) Mean Platelet Volume 6.0 FL (6.5-10.1) L 6.6 FL (6.5-10.1) Neutrophils (%) (Auto) 72.0 % (45.0-75.0) 68.3 % (45.0-75.0) Lymphocytes (%) (Auto) 14.7 % (20.0-45.0) L 16.6 % (20.0-45.0) L Monocytes (%) (Auto) 8.3 % (1.0-10.0) 10.0 % (1.0-10.0) Eosinophils (%) (Auto) 2.6 % (0.0-3.0) 2.9 % (0.0-3.0) Basophils (%) (Auto) 2.3 % (0.0-2.0) H 2.3 % (0.0-2.0) H Sodium Level 135 MMOL/L (136-145) L 136 MMOL/L (136-145) Potassium Level 4.5 MMOL/L (3.5-5.1) 4.4 MMOL/L (3.5-5.1) Chloride Level 99 MMOL/L (98-107) 102 MMOL/L (98-107) Carbon Dioxide Level 30 MMOL/L (21-32) 26 MMOL/L (21-32) Anion Gap 6 mmol/L (5-15) 9 mmol/L (5-15) Blood Urea Nitrogen 18 mg/dL (7-18) 16 mg/dL (7-18) Creatinine 1.1 MG/DL (0.55-1.30) 1.2 MG/DL (0.55-1.30) Estimat Glomerular Filtration Rate > 60 mL/min (>60) > 60 mL/min (>60) Glucose Level 76 MG/DL (74-106) 134 MG/DL (74-106) H Lactic Acid Level 1.80 mmol/L (0.4-2.0) Calcium Level 9.7 MG/DL (8.5-10.1) 9.2 MG/DL (8.5-10.1) Total Bilirubin 0.1 MG/DL (0.2-1.0) L 0.2 MG/DL (0.2-1.0) Aspartate Amino Transf (AST/SGOT) 15 U/L (15-37) 15 U/L (15-37) Alanine Aminotransferase (ALT/SGPT) 15 U/L (12-78) 11 U/L (12-78) L Alkaline Phosphatase 122 U/L (46-116) H 102 U/L (46-116) Total Protein 9.3 G/DL (6.4-8.2) H 8.1 G/DL (6.4-8.2) Albumin 2.7 G/DL (3.4-5.0) L 2.3 G/DL (3.4-5.0) L Globulin 6.6 g/dL 5.8 g/dL Albumin/Globulin Ratio 0.4 (1.0-2.7) L 0.4 (1.0-2.7) L Erythrocyte Sedimentation Rate 82 MM/HR (0-20) H C-Reactive Protein, Quantitative 7.1 mg/dL (0.00-0.90) H Microbiology Date/Time Source Procedure Growth Status 12/26/18 12:00 Wound Gram Stain - Final Resulted 12/26/18 12:00 Wound Wound Culture Pending Resulted Height (Feet): 5 Height (Inches): 10.00 Weight (Pounds): 174 Medications Current Medications Medications (Trade) Dose Ordered Sig/Taco Route PRN Reason Start Time Stop Time Status Last Admin Dose Admin Acetaminophen (Tylenol) 650 mg Q4H PRN ORAL fever 12/26/18 19:30 01/25/19 19:29 Albuterol/ Ipratropium (Albuterol/ Ipratropium) 3 ml Q4H PRN HHN Shortness of Breath 12/26/18 19:30 12/31/18 19:29 Amlodipine Besylate (Norvasc) 10 mg DAILY ORAL 12/27/18 09:00 01/26/19 08:59 12/27/18 08:34 Benazepril HCl (Lotensin) 10 mg DAILY ORAL 12/27/18 09:00 01/26/19 08:59 12/27/18 08:35 Clonidine HCl (Catapres Tab) 0.1 mg Q6H PRN ORAL For High Blood Pressure 12/26/18 20:00 01/25/19 19:59 Clopidogrel Bisulfate (Plavix) 75 mg DAILY ORAL 12/27/18 09:00 01/26/19 08:59 12/27/18 08:34 Dextrose (Dextrose 50%) 25 ml Q30M PRN IV Hypoglycemia 12/26/18 19:45 01/25/19 19:33 Dextrose (Dextrose 50%) 50 ml Q30M PRN IV hypoglycemia 12/26/18 19:45 01/25/19 19:44 Divalproex Sodium (Depakote) 250 mg Q12HR ORAL 12/26/18 21:00 01/25/19 20:59 12/27/18 08:34 Gabapentin (Neurontin) 300 mg THREE TIMES A DAY ORAL 12/27/18 09:00 01/26/19 08:59 12/27/18 08:34 Heparin Sodium (Porcine) (Heparin 5000 units/ml) 5,000 units EVERY 12 HOURS SUBQ 12/26/18 21:00 01/25/19 20:59 12/27/18 08:37 Insulin Aspart (NovoLOG) BEFORE MEALS AND HS SUBQ 12/26/18 21:00 01/25/19 20:59 Magnesium Hydroxide (Mom) 30 ml DAILYPRN PRN ORAL Constipation 12/26/18 20:00 01/25/19 19:59 Morphine Sulfate (Morphine Sulfate) 2 mg Q4H PRN IVP Moderate Pain (Pain Scale 4-6) 12/26/18 19:30 01/02/19 19:29 12/27/18 09:11 Nitroglycerin (Ntg) 0.4 mg Q5M PRN SL Prn Chest Pain 12/26/18 19:30 01/25/19 19:29 Ondansetron HCl (Zofran) 4 mg Q6H PRN IVP Nausea & Vomiting 12/26/18 19:30 01/25/19 19:29 Pantoprazole (Protonix) 40 mg DAILY ORAL 12/27/18 09:00 01/26/19 08:59 12/27/18 08:35 Paroxetine HCl (Paxil) 30 mg DAILY ORAL 12/27/18 09:00 01/26/19 08:59 12/27/18 08:35 Polyethylene Glycol (Miralax) 17 gm DAILYPRN PRN ORAL Constipation 12/26/18 20:00 01/25/19 19:29 Quetiapine Fumarate (SEROquel) 100 mg THREE TIMES A DAY ORAL 12/27/18 09:00 01/26/19 08:59 12/27/18 08:34 Tamsulosin HCl (Flomax) 0.4 mg BEDTIME ORAL 12/26/18 21:00 01/25/19 20:59 12/26/18 21:25 Temazepam (Restoril) 15 mg HSPRN PRN ORAL Insomnia 12/26/18 19:30 01/02/19 19:29 Trazodone HCl (Desyrel) 100 mg BEDTIME ORAL 12/26/18 21:00 01/25/19 20:59 12/26/18 21:25 Vancomycin HCl (Vanco rx to dose) 1 ea DAILY PRN MISC PER PHARMACY 12/26/18 19:45 01/25/19 19:44 Vancomycin HCl 1 gm/Dextrose 275 ml @ 183.3 mls/ hr Q12H IVPB 12/27/18 05:00 01/01/19 04:59 12/27/18 03:58 Assessment/Plan Problem List: (1) Cellulitis ICD Codes: L03.90 - Cellulitis, unspecified SNOMED: 731622696 (2) Severe anemia ICD Codes: D64.9 - Anemia, unspecified SNOMED: 329470987 (3) Hypertension ICD Codes: I10 - Hypertension SNOMED: 89181562 (4) UTI (urinary tract infection) ICD Codes: N39.0 - Urinary tract infection, site not specified SNOMED: 78079320 (5) Schizoaffective disorder ICD Codes: F25.9 - Schizoaffective disorder SNOMED: 66017322 (6) Diabetes ICD Codes: E11.9 - Diabetes SNOMED: 57996302 (7) History of CVA (cerebrovascular accident) ICD Codes: Z86.73 - Personal history of transient ischemic attack (TIA), and cerebral infarction without residual deficits SNOMED: 788979524 Assessment/Plan wound care IV abx check cultures iv fluids symptomatic treatment respiratory treatment dvt prophylaxis. Vanesa Skinner MD Dec 27, 2018 11:52
--- NOTE | 2018-12-27 11:56 | Diagnostic Imaging Report ---
APPROVED REPORT CPT Code: 90266 Present Symptoms Comments: BILATERALLEGS PAIN. BILATERAL: Imaging reveals a patent deep venous system bilaterally. There is no evidence of thrombus within the femoral, popliteal or tibial segments. The greater saphenous veins are also within normal limits. Doppler indicates normal spontaneous flow within these segments.
--- NOTE | 2018-12-27 14:25 | NUR ---
NURSE NOTES: Pt refused study to left leg. R/B explained
--- NOTE | 2018-12-27 14:55 | NUR ---
68 Year Old Male BIBA from [facility] CC: Wound Recheck/ Suture Removal SI:Left ankle ulcer/ Cellulitis VS BP 137/76, P 82, Temp. 97.6, Resp. 20, O2Sat 97 Room Air WBC 12.2, RBC 3.46 HGB 9.9, Hct 31.9, MCHC 31.1, MPV 6.0, Lymph% 14.7, Baso% 20.3 Venous Duplex Scan: Doppler indicates normal spontaneous flow within these segments X-ray: No definite acute bony process possible lateral soft tissue irregularity-correlate with clinical findings IS:Vancomycin IV Morphine Sulfate NS IV x 1L Admitted to [facility] DC plan return to [facility]
[2018-12-27 16:00] VITALS: BP 114/61
--- NOTE | 2018-12-27 16:32 | Surgery Progress Note ---
Surgery Progress Note Subjective Additional Comments doing well. comfortable. pain improving. Objective Last 24 Hour Vital Signs Date Time Temp Pulse Resp B/P (MAP) Pulse Ox O2 Delivery O2 Flow Rate FiO2 12/27/18 09:00 Room Air 12/27/18 08:35 133/68 12/27/18 08:34 84 133/68 12/27/18 08:00 99.0 98 18 134/58 (83) 97 12/27/18 04:13 99.0 98 18 100/57 (71) 97 12/27/18 02:53 97.8 12/26/18 21:00 Room Air 12/26/18 20:00 97.8 100 18 151/75 (100) 99 12/26/18 17:41 Room Air 12/26/18 17:05 97.5 85 18 132/73 97 Room Air I&O Intake and Output 12/26/18 12/27/18 19:00 07:00 Intake Total 615.0 ml Balance 615.0 ml Intake Oral 340 ml IV Total 275.0 ml # Voids 1 Dressing: saturated Wound: other Drains: other Cardiovascular: RSR Respiratory: clear Abdomen: soft, non-tender, present bowel sounds, non-distended Extremities: tenderness, cyanosis, other Laboratory Tests Test 12/27/18 06:25 White Blood Count 11.4 K/UL (4.8-10.8) H Red Blood Count 3.08 M/UL (4.70-6.10) L Hemoglobin 9.0 G/DL (14.2-18.0) L Hematocrit 27.9 % (42.0-52.0) L Mean Corpuscular Volume 91 FL (80-99) Mean Corpuscular Hemoglobin 29.3 PG (27.0-31.0) Mean Corpuscular Hemoglobin Concent 32.2 G/DL (32.0-36.0) Red Cell Distribution Width 14.1 % (11.6-14.8) Platelet Count 238 K/UL (150-450) Mean Platelet Volume 6.6 FL (6.5-10.1) Neutrophils (%) (Auto) 68.3 % (45.0-75.0) Lymphocytes (%) (Auto) 16.6 % (20.0-45.0) L Monocytes (%) (Auto) 10.0 % (1.0-10.0) Eosinophils (%) (Auto) 2.9 % (0.0-3.0) Basophils (%) (Auto) 2.3 % (0.0-2.0) H Erythrocyte Sedimentation Rate 82 MM/HR (0-20) H Sodium Level 136 MMOL/L (136-145) Potassium Level 4.4 MMOL/L (3.5-5.1) Chloride Level 102 MMOL/L (98-107) Carbon Dioxide Level 26 MMOL/L (21-32) Anion Gap 9 mmol/L (5-15) Blood Urea Nitrogen 16 mg/dL (7-18) Creatinine 1.2 MG/DL (0.55-1.30) Estimat Glomerular Filtration Rate > 60 mL/min (>60) Glucose Level 134 MG/DL (74-106) H Calcium Level 9.2 MG/DL (8.5-10.1) Total Bilirubin 0.2 MG/DL (0.2-1.0) Aspartate Amino Transf (AST/SGOT) 15 U/L (15-37) Alanine Aminotransferase (ALT/SGPT) 11 U/L (12-78) L Alkaline Phosphatase 102 U/L (46-116) C-Reactive Protein, Quantitative 7.1 mg/dL (0.00-0.90) H Total Protein 8.1 G/DL (6.4-8.2) Albumin 2.3 G/DL (3.4-5.0) L Globulin 5.8 g/dL Albumin/Globulin Ratio 0.4 (1.0-2.7) L Plan Problems: (1) Ulcer of left ankle Assessment & Plan: large chronic left ankle ulceration near circumferential on left ankle. full thickness with eschar on some areas and some areas of granulation tissue. no drainage. no fluctuance. tender, periwound okay. pulses diminished. calf okay. foot with decreased cap refill. please see photos Plain films noted venous duplex without dvt and patent. labs noted -wash left ankle daily with NS. apply xeroform to wound, ABD, and wrap with kerlix -pending arterial duplex studies thank you will follow with recs. Devon Sullivan Dec 27, 2018 16:32
--- NOTE | 2018-12-27 17:00 | History and Physical Report ---
DATE OF ADMISSION: 12/26/2018 TIME SEEN: On 12/27/2018 at 2 p.m. CONSULTANTS: 1. Jarek Gonzalez D.O.. 2. Devon Sullivan M.D. 3. Sadi Wong M.D. 4. Uziel Collado M.D. 5. Vaensa Skinner M.D. CHIEF COMPLAINT: Lower extremity infected wound and psych history. BRIEF HISTORY: This is a 68-year-old male from [facility] with history of nonhealing left leg wound, getting worse, sent to [facility], diagnosed with the above, and admitted to medical floor for further treatment. Currently, calm in bed. No complaint. No chest pain. No shortness of breath. No nausea, vomiting, or diarrhea. PAST MEDICAL HISTORY: Include lower extremity infected wound, psych history, diabetes, hypertension, CVA, anemia, schizoaffective, failure to thrive. PAST SURGICAL HISTORY: Left eye. ALLERGIES: Penicillin . MEDICATIONS: Include amlodipine, benazepril, clopidogrel, gabapentin, pantoprazole, vancomycin, Paxil, , trazodone, insulin, clonidine, and magnesium. SOCIAL HISTORY: Positive smoke. No alcohol. No intravenous drug abuse. FAMILY HISTORY: Noncontributory. PHYSICAL EXAMINATION: GENERAL: Calm in bed, oriented x2, in no acute distress. VITAL SIGNS: Temperature is 99, pulse 98, respirations 18, and blood pressure 134/58. CARDIOVASCULAR: No murmur. LUNGS: Distant and clear. ABDOMEN: Bowel sounds positive. Nontender. Nondistended. EXTREMITIES: No cyanosis or clubbing. 1+ edema. Left foot and ankle dressing clean and dry. Toe is slightly disheveled. NEUROLOGIC: The patient moves all extremities, slightly weak. LABORATORY AND DIAGNOSTIC DATA: White count was 12, now is 11.4; hemoglobin and hematocrit 9/27; platelets is 238,000. BMP shows glucose 134, ALT 11, and albumin 2.3, otherwise BMP is normal. ASSESSMENT: 1. Lower extremity infected wound. 2. Psych history. 3. Schizophrenia. 4. CVA. 5. Anemia. 6. Diabetes. 7. Hypertension. 8. Failure to thrive. 9. Malnutrition. PLAN: 1. Wound care. 2. Antibiotic per Infectious Disease. 3. Blood pressure and blood sugar control. 4. PT and dietary evaluation. 5. CBC and BMP morning. 6. Resume home medications. 7. We will continue to follow the patient. Jarek Gonzalez D.O. DR: VANE JOB#: [id number] CC:
--- NOTE | 2018-12-27 17:04 | Infectious Diseases Prog Note ---
Assessment/Plan Assessment/Plan Abx: IV Vancomycin x1 12/26 Assessment: L ankle ulcer- mild gavin wound cellulitis;ulcer itself not infected -Xray ankle: No definite acute bony process. Possible lateral soft tissue irregularity-correlate with clinical findings Afebrile Mild leukocytosis; improving DM2 HTN COPD SNF resident Plan: - Vancomycin #2/ -s/p IV Vancomycin x1 12/26 -f/u cx -Monitor CBC/CMP, temperatures -wound care Thank you for this consultation. Will continue to follow along with you. Discussed with RN. Subjective Allergies: Coded Allergies: THIORIDAZINE (Unverified Allergy, Mild, HIVES, 04/06/15) PENICILLIN (Unverified Allergy, Unknown, 06/15/15) PENICILLINS (Unverified Allergy, Unknown, 11/24/17) Subjective afebrile Objective Vital Signs Last 24 Hour Vital Signs Date Time Temp Pulse Resp B/P (MAP) Pulse Ox O2 Delivery O2 Flow Rate FiO2 12/27/18 09:00 Room Air 12/27/18 08:35 133/68 12/27/18 08:34 84 133/68 12/27/18 08:00 99.0 98 18 134/58 (83) 97 12/27/18 04:13 99.0 98 18 100/57 (71) 97 12/27/18 02:53 97.8 12/26/18 21:00 Room Air 12/26/18 20:00 97.8 100 18 151/75 (100) 99 12/26/18 17:41 Room Air 12/26/18 17:05 97.5 85 18 132/73 97 Room Air Height (Feet): 5 Height (Inches): 10.00 Weight (Pounds): 174 Objective General Appearance: no apparent distress, alert, non-toxic HEENT: normocephalic, atraumatic bilateral eye PERRL, normal pharynx Neck: full range of motion, supple/symm/no masses Respiratory: chest non-tender, lungs clear, normal breath sounds, speaking full sentences Cardiovascular : regular rate, rhythm, no edema Gastrointestinal: normal bowel sounds, non tender, soft, non-distended, no guarding, no rebound Genitourinary: normal inspection, no CVA tenderness Musculoskeletal: back normal, gait/station normal, normal range of motion, non- tender Neurologic: alert, oriented x3, responsive, motor strength/tone normal, sensory intact, speech normal Psychiatric: judgement/insight normal, memory normal, mood/affect normal, no suicidal/homicidal ideation Skin: other - large ulcer to L ankle. surrounding erythema/induration Microbiology Date/Time Source Procedure Growth Status 12/26/18 12:00 Wound Gram Stain - Final Resulted 12/26/18 12:00 Wound Culture - Preliminary Gram Negative Bacillus 1 Resulted Laboratory Tests Test 12/27/18 06:25 White Blood Count 11.4 K/UL (4.8-10.8) H Red Blood Count 3.08 M/UL (4.70-6.10) L Hemoglobin 9.0 G/DL (14.2-18.0) L Hematocrit 27.9 % (42.0-52.0) L Mean Corpuscular Volume 91 FL (80-99) Mean Corpuscular Hemoglobin 29.3 PG (27.0-31.0) Mean Corpuscular Hemoglobin Concent 32.2 G/DL (32.0-36.0) Red Cell Distribution Width 14.1 % (11.6-14.8) Platelet Count 238 K/UL (150-450) Mean Platelet Volume 6.6 FL (6.5-10.1) Neutrophils (%) (Auto) 68.3 % (45.0-75.0) Lymphocytes (%) (Auto) 16.6 % (20.0-45.0) L Monocytes (%) (Auto) 10.0 % (1.0-10.0) Eosinophils (%) (Auto) 2.9 % (0.0-3.0) Basophils (%) (Auto) 2.3 % (0.0-2.0) H Erythrocyte Sedimentation Rate 82 MM/HR (0-20) H Sodium Level 136 MMOL/L (136-145) Potassium Level 4.4 MMOL/L (3.5-5.1) Chloride Level 102 MMOL/L (98-107) Carbon Dioxide Level 26 MMOL/L (21-32) Anion Gap 9 mmol/L (5-15) Blood Urea Nitrogen 16 mg/dL (7-18) Creatinine 1.2 MG/DL (0.55-1.30) Estimat Glomerular Filtration Rate > 60 mL/min (>60) Glucose Level 134 MG/DL (74-106) H Calcium Level 9.2 MG/DL (8.5-10.1) Total Bilirubin 0.2 MG/DL (0.2-1.0) Aspartate Amino Transf (AST/SGOT) 15 U/L (15-37) Alanine Aminotransferase (ALT/SGPT) 11 U/L (12-78) L Alkaline Phosphatase 102 U/L (46-116) C-Reactive Protein, Quantitative 7.1 mg/dL (0.00-0.90) H Total Protein 8.1 G/DL (6.4-8.2) Albumin 2.3 G/DL (3.4-5.0) L Globulin 5.8 g/dL Albumin/Globulin Ratio 0.4 (1.0-2.7) L Current Medications Medications (Trade) Dose Ordered Sig/Taco Route PRN Reason Start Time Stop Time Status Last Admin Dose Admin Acetaminophen (Tylenol) 650 mg Q4H PRN ORAL fever 12/26/18 19:30 01/25/19 19:29 Albuterol/ Ipratropium (Albuterol/ Ipratropium) 3 ml Q4H PRN HHN Shortness of Breath 12/26/18 19:30 12/31/18 19:29 Amlodipine Besylate (Norvasc) 10 mg DAILY ORAL 12/27/18 09:00 01/26/19 08:59 12/27/18 08:34 Benazepril HCl (Lotensin) 10 mg DAILY ORAL 12/27/18 09:00 01/26/19 08:59 12/27/18 08:35 Benztropine Mesylate (Cogentin) 1 mg THREE TIMES A DAY ORAL 12/27/18 18:00 01/26/19 17:59 Clonidine HCl (Catapres Tab) 0.1 mg Q6H PRN ORAL For High Blood Pressure 12/26/18 20:00 01/25/19 19:59 Clopidogrel Bisulfate (Plavix) 75 mg DAILY ORAL 12/27/18 09:00 01/26/19 08:59 12/27/18 08:34 Dextrose (Dextrose 50%) 25 ml Q30M PRN IV Hypoglycemia 12/26/18 19:45 01/25/19 19:33 Dextrose (Dextrose 50%) 50 ml Q30M PRN IV hypoglycemia 12/26/18 19:45 01/25/19 19:44 Divalproex Sodium (Depakote) 250 mg Q12HR ORAL 12/26/18 21:00 01/25/19 20:59 12/27/18 08:34 Gabapentin (Neurontin) 300 mg THREE TIMES A DAY ORAL 12/27/18 09:00 01/26/19 08:59 12/27/18 16:57 Haloperidol (Haldol) 5 mg TID ORAL 12/27/18 18:00 01/26/19 17:59 Heparin Sodium (Porcine) (Heparin 5000 units/ml) 5,000 units EVERY 12 HOURS SUBQ 12/26/18 21:00 01/25/19 20:59 12/27/18 08:37 Insulin Aspart (NovoLOG) BEFORE MEALS AND HS SUBQ 12/26/18 21:00 01/25/19 20:59 Magnesium Hydroxide (Mom) 30 ml DAILYPRN PRN ORAL Constipation 12/26/18 20:00 01/25/19 19:59 Morphine Sulfate (Morphine Sulfate) 2 mg Q4H PRN IVP Moderate Pain (Pain Scale 4-6) 12/26/18 19:30 01/02/19 19:29 12/27/18 14:00 Nitroglycerin (Ntg) 0.4 mg Q5M PRN SL Prn Chest Pain 12/26/18 19:30 01/25/19 19:29 Ondansetron HCl (Zofran) 4 mg Q6H PRN IVP Nausea & Vomiting 12/26/18 19:30 01/25/19 19:29 Pantoprazole (Protonix) 40 mg DAILY ORAL 12/27/18 09:00 01/26/19 08:59 12/27/18 08:35 Paroxetine HCl (Paxil) 30 mg DAILY ORAL 12/27/18 09:00 01/26/19 08:59 12/27/18 08:35 Polyethylene Glycol (Miralax) 17 gm DAILYPRN PRN ORAL Constipation 12/26/18 20:00 01/25/19 19:29 Quetiapine Fumarate (SEROquel) 100 mg THREE TIMES A DAY ORAL 12/27/18 09:00 01/26/19 08:59 12/27/18 16:57 Tamsulosin HCl (Flomax) 0.4 mg BEDTIME ORAL 12/26/18 21:00 01/25/19 20:59 12/26/18 21:25 Temazepam (Restoril) 15 mg HSPRN PRN ORAL Insomnia 12/26/18 19:30 01/02/19 19:29 Trazodone HCl (Desyrel) 100 mg BEDTIME ORAL 12/26/18 21:00 01/25/19 20:59 12/26/18 21:25 Vancomycin HCl (Vanco rx to dose) 1 ea DAILY PRN MISC PER PHARMACY 12/26/18 19:45 01/25/19 19:44 Vancomycin HCl 1 gm/Dextrose 275 ml @ 183.3 mls/ hr Q12H IVPB 12/27/18 05:00 01/01/19 04:59 12/27/18 16:51 Mireya Campos M.D. Dec 27, 2018 17:04
[2018-12-27] MEDS: Benztropine 1mg tab ORAL SCH (17:05)
--- NOTE | 2018-12-27 18:48 | NUR ---
NURSE NOTES: Pt required full assistance with care, incontinent times 3 . Unaware of when he needs to urinate. Requested a "diaper" Informed that adult briefs are not used in this facility. Pt kept dry , skin cleansed and moisturized often. Call light is in reach. Cooperated with plan of care. Pt malodorous, required a complete bed bathe, pt is not ambulatory. Dr Fenton here earlier in shift seen pt. Pt is able to verbalize known needs, at times. Morphine 4 mg given IV x 2 for pain. Displayed behavior of irritability, qued on how he was feeling " I"m hurting" Informed both times that pain medication is available. Educated on importance of not delaying pain treatment. Call light is in reach. repositioned through out this shift, . Skin remained without presence of dermatological side effect of antibiotics use,. Unable to collect stool for OB collection. Will inform oncoming nurse. Pt did not have bowel movement this shift
[2018-12-27 20:00] VITALS: BP 106/52
--- NOTE | 2018-12-27 20:11 | NUR ---
HAND-OFF: Report given to .Cristopher ESPINOZA
--- NOTE | 2018-12-27 20:15 | NUR ---
NURSE NOTES: Patient in bed, awake, alert x 3. Able to make simple needs known. Respiration is even and unlabored. Kept clean and comfortable. Provided safe environment. Bed in low and locked position. Skin is warm and dry to touch. Noted with dressing on lower extremity, intact. Iv site is patent. NO complaint of pain or discomfort. Call light is at bedside. Will continue plan of care.
[2018-12-27] MEDS: Tamsulosin 0.4mg cap ORAL SCH (21:45)
[2018-12-27] MEDS: TraZODone 100mg tab ORAL SCH (21:45)
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
[2018-12-28] VITALS: BP 95/50
[2018-12-28 04:39] LABS: BASOPHILS % (AUTO) 0.8 % (0.0-2.0); EOSINOPHILS % (AUTO) 3.3 % (0.0-3.0); HEMATOCRIT 27.3 % (42.0-52.0); HEMOGLOBIN 8.6 G/DL (14.2-18.0); LYMPHOCYTES % (AUTO) 20.6 % (20.0-45.0); MEAN CORPUSCULAR VOLUME 91 FL (80-99); MONOCYTES % (AUTO) 12.7 % (1.0-10.0); NEUTROPHILS % (AUTO) 62.6 % (45.0-75.0); PLATELET COUNT 225 K/UL (150-450); RED CELL DISTRIBUTION WIDTH 14.3 % (11.6-14.8); WHITE BLOOD COUNT 9.9 K/UL (4.8-10.8)
[2018-12-28 04:58] LABS: LACTATE DEHYDROGENASE 118 U/L (81-234)
[2018-12-28 05:40] LABS: % IRON SATURATION 20 % (15-50); IRON 33 ug/dL (50-175); TOTAL IRON BINDING CAPACITY 169 ug/dL (250-450)
[2018-12-28] MEDS ORDERED: Vancomycin 750mg/NS 275ml IVPB SCH ×2 (06:00)
[2018-12-28] MEDS: NovoLOG Insulin Flexpen SUBQ SCH ×4 (06:15→20:15)
--- NOTE | 2018-12-28 07:20 | NUR ---
HAND-OFF: Report given to OLGA Ponce. Addendum: 12/28/18 at 0741 by RAYMUNDO CANDELARIO RN RN HAND-OFF: Report given to OLGA Rey.
[2018-12-28 08:00] VITALS: BP 109/66
--- NOTE | 2018-12-28 08:46 | NUR ---
NURSE NOTES: Patient is alert and oriented to name. Patient's linen's changed. Patient repositioned in bed. No reports of discomfort at the moment. Side rails are up X2. Bed is locked and in lowest position. Will continue to monitor.
[2018-12-28] MEDS: Benazepril 10mg tab ORAL SCH (09:00)
[2018-12-28] MEDS: Benztropine 1mg tab ORAL SCH ×3 (10:32→17:26)
[2018-12-28] MEDS: Heparin 5000 units/ml inj SUBQ SCH ×2 (10:32→20:15)
[2018-12-28] MEDS: PARoxetine 10mg tab ORAL SCH (10:34)
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
--- NOTE | 2018-12-28 11:23 | Surgery Progress Note ---
Surgery Progress Note Subjective Additional Comments leukocytosis resolved. doing well. long discussion about wound and leg with patient. states he has no intention of having debridement, grafting, or amputation at anytime. Objective Last 24 Hour Vital Signs Date Time Temp Pulse Resp B/P (MAP) Pulse Ox O2 Delivery O2 Flow Rate FiO2 12/28/18 09:00 109/66 12/28/18 09:00 89 109/66 12/28/18 08:15 89 16 Room Air 21 12/28/18 08:00 Room Air 12/28/18 08:00 98.7 84 109/66 (80) 12/28/18 00:00 96.4 73 17 95/50 (65) 98 12/27/18 21:00 Room Air 12/27/18 20:00 96.9 92 18 106/52 (70) 97 12/27/18 16:00 98.7 88 20 114/61 (78) 98 I&O Intake and Output 12/27/18 12/28/18 19:00 07:00 Intake Total 366.6 ml Output Total 5 ml Balance 366.6 ml -5 ml IV Total 366.6 ml Output Urine Total 5 ml # Bowel Movements 1 Dressing: saturated Wound: other Drains: none Cardiovascular: RSR Respiratory: clear Abdomen: soft, flat, non-tender, non-distended Extremities: tenderness, cyanosis, other Laboratory Tests Test 12/28/18 03:59 White Blood Count 9.9 K/UL (4.8-10.8) Red Blood Count 3.00 M/UL (4.70-6.10) L Hemoglobin 8.6 G/DL (14.2-18.0) L Hematocrit 27.3 % (42.0-52.0) L Mean Corpuscular Volume 91 FL (80-99) Mean Corpuscular Hemoglobin 28.8 PG (27.0-31.0) Mean Corpuscular Hemoglobin Concent 31.6 G/DL (32.0-36.0) L Red Cell Distribution Width 14.3 % (11.6-14.8) Platelet Count 225 K/UL (150-450) Mean Platelet Volume 6.2 FL (6.5-10.1) L Neutrophils (%) (Auto) 62.6 % (45.0-75.0) Lymphocytes (%) (Auto) 20.6 % (20.0-45.0) Monocytes (%) (Auto) 12.7 % (1.0-10.0) H Eosinophils (%) (Auto) 3.3 % (0.0-3.0) H Basophils (%) (Auto) 0.8 % (0.0-2.0) Neutrophils % (Manual) Pending Lymphocytes % (Manual) Pending Platelet Estimate Pending Platelet Morphology Pending Erythrocyte Sedimentation Rate 116 MM/HR (0-20) H Reticulocyte Count Pending Prothrombin Time 10.9 SEC (9.30-11.50) Prothromb Time International Ratio 1.0 (0.9-1.1) Activated Partial Thromboplast Time 29 SEC (23-33) Iron Level 33 ug/dL (50-175) L Total Iron Binding Capacity 169 ug/dL (250-450) L Percent Iron Saturation 20 % (15-50) Unsaturated Iron Binding 136 ug/dL (112-346) Lactate Dehydrogenase 118 U/L (81-234) Carcinoembryonic Antigen Pending Vitamin B12 Level 616 PG/ML (193-986) Folate 27.8 NG/ML (8.6-58.9) Vancomycin Level Trough 19.5 ug/mL (5.0-12.0) H Plan Problems: (1) Ulcer of left ankle Assessment & Plan: large chronic left ankle ulceration near circumferential on left ankle. full thickness with eschar on some areas and some areas of granulation tissue. no drainage. no fluctuance. tender, periwound okay. pulses diminished. calf okay. foot with decreased cap refill. please see photos Plain films noted venous duplex without dvt and patent. labs noted long discussion about wound and leg with patient. states he has no intention of having debridement, grafting, or amputation at anytime. -wash left ankle daily with NS. apply xeroform to wound, ABD, and wrap with kerlix thank you will follow with recs. Devon Sullivan Dec 28, 2018 11:23
[2018-12-28 12:00] VITALS: BP 112/78
--- NOTE | 2018-12-28 13:03 | General Progress Note ---
Assessment/Plan Problem List: (1) History of CVA (cerebrovascular accident) ICD Codes: Z86.73 - Personal history of transient ischemic attack (TIA), and cerebral infarction without residual deficits SNOMED: 816474460 (2) Cellulitis ICD Codes: L03.90 - Cellulitis, unspecified SNOMED: 668780059 (3) Anemia ICD Codes: D64.9 - Anemia SNOMED: 473228900 (4) Diabetes ICD Codes: E11.9 - Diabetes SNOMED: 50221096 (5) Hypertension ICD Codes: I10 - Hypertension SNOMED: 06875067 (6) Failure to thrive in adult ICD Codes: R62.7 - Adult failure to thrive SNOMED: 060462257 (7) Ulcer of left ankle ICD Codes: L97.329 - Non-pressure chronic ulcer of left ankle with unspecified severity SNOMED: 999803397, 54060529 Qualifiers: Qualified Codes: L97.322 - Non-pressure chronic ulcer of left ankle with fat layer exposed Status: unchanged Assessment/Plan wound care abx pain control cbc bmp am ltach eval Subjective Constitutional: Reports: weakness Allergies: Coded Allergies: THIORIDAZINE (Unverified Allergy, Mild, HIVES, 04/06/15) PENICILLIN (Unverified Allergy, Unknown, 06/15/15) PENICILLINS (Unverified Allergy, Unknown, 11/24/17) All Systems: reviewed and negative except above Subjective sl foot pain Objective Last 24 Hour Vital Signs Date Time Temp Pulse Resp B/P (MAP) Pulse Ox O2 Delivery O2 Flow Rate FiO2 12/28/18 09:00 109/66 12/28/18 09:00 89 109/66 12/28/18 08:15 89 16 Room Air 21 12/28/18 08:00 Room Air 12/28/18 08:00 98.7 84 109/66 (80) 12/28/18 00:00 96.4 73 17 95/50 (65) 98 12/27/18 21:00 Room Air 12/27/18 20:00 96.9 92 18 106/52 (70) 97 12/27/18 16:00 98.7 88 20 114/61 (78) 98 Intake and Output 12/27/18 12/28/18 19:00 07:00 Intake Total 366.6 ml Output Total 5 ml Balance 366.6 ml -5 ml IV Total 366.6 ml Output Urine Total 5 ml # Bowel Movements 1 Laboratory Tests 12/28/18 03:59: White Blood Count 9.9, Red Blood Count 3.00L, Hemoglobin 8.6L, Hematocrit 27.3L , Mean Corpuscular Volume 91, Mean Corpuscular Hemoglobin 28.8, Mean Corpuscular Hemoglobin Concent 31.6L, Red Cell Distribution Width 14.3, Platelet Count 225, Mean Platelet Volume 6.2L, Neutrophils (%) (Auto) 62.6, Lymphocytes (%) (Auto) 20.6, Monocytes (%) (Auto) 12.7H, Eosinophils (%) (Auto) 3.3H, Basophils (%) (Auto) 0.8, Differential Total Cells Counted 100, Neutrophils % (Manual) 62, Lymphocytes % (Manual) 23, Monocytes % (Manual) 13H, Eosinophils % (Manual) 2, Basophils % (Manual) 0, Band Neutrophils 0, Platelet Estimate Adequate, Platelet Morphology Normal, Hypochromasia 1+, Anisocytosis , Erythrocyte Sedimentation Rate 116H, Reticulocyte Count 0.9, Prothrombin Time 10.9, Prothromb Time International Ratio 1.0, Activated Partial Thromboplast Time 29, Iron Level 33L, Total Iron Binding Capacity 169L, Percent Iron Saturation 20, Unsaturated Iron Binding 136, Lactate Dehydrogenase 118, Carcinoembryonic Antigen [Pending], Vitamin B12 Level 616, Folate 27.8, Vancomycin Level Trough 19.5H Height (Feet): 5 Height (Inches): 10.00 Weight (Pounds): 174 General Appearance: lethargic EENT: normal ENT inspection Neck: normal alignment Cardiovascular: normal peripheral pulses, normal rate, regular rhythm Respiratory/Chest: chest wall non-tender, lungs clear, normal breath sounds Abdomen: normal bowel sounds, non tender, soft Extremities: normal inspection Edema: no edema noted Arm (L), no edema noted Arm (R), no edema noted Leg (L), no edema noted Leg (R), no edema noted Pedal (L), no edema noted Pedal (R), no edema noted Generalized Neurologic: responsive, motor weakness Skin: normal pigmentation, warm/dry Jarek Gonzalez DO Dec 28, 2018 13:03
--- NOTE | 2018-12-28 14:53 | NUR ---
Residential Life DirectorCuff Matcher SI: Left Ankle Ulcer/ Cellulitis VS: BP 95/50, P 73, Temp. 96.4, Resp. 16, O2Sat 98 Monocytes% 13, ESR 116, Hgb 8.6, RBC 3.00 IS: Vancomycin IVPB Amlodipine Benazepril Clopidogrel MED/SURG STATUS
[2018-12-28 16:00] VITALS: BP 150/76
--- NOTE | 2018-12-28 16:17 | Infectious Diseases Prog Note ---
Assessment/Plan Assessment/Plan Abx: IV Vancomycin x1 12/26 Assessment: L ankle ulcer- mild gavin wound cellulitis;ulcer itself not infected -Xray ankle: No definite acute bony process. Possible lateral soft tissue irregularity-correlate with clinical findings Afebrile Mild leukocytosis; SP DM2 HTN COPD SNF resident Plan: - Switch iV Vancomycin #3 to PO bactrim -s/p IV Vancomycin x1 12/26 -f/u cx -Monitor CBC/CMP, temperatures -wound care Thank you for this consultation. Will continue to follow along with you. Discussed with RN. Subjective Allergies: Coded Allergies: THIORIDAZINE (Unverified Allergy, Mild, HIVES, 04/06/15) PENICILLIN (Unverified Allergy, Unknown, 06/15/15) PENICILLINS (Unverified Allergy, Unknown, 11/24/17) Subjective afebrile leukocytosis resolved Objective Vital Signs Last 24 Hour Vital Signs Date Time Temp Pulse Resp B/P (MAP) Pulse Ox O2 Delivery O2 Flow Rate FiO2 12/28/18 09:00 109/66 12/28/18 09:00 89 109/66 12/28/18 08:15 89 16 Room Air 21 12/28/18 08:00 Room Air 12/28/18 08:00 98.7 84 109/66 (80) 12/28/18 00:00 96.4 73 17 95/50 (65) 98 12/27/18 21:00 Room Air 12/27/18 20:00 96.9 92 18 106/52 (70) 97 Height (Feet): 5 Height (Inches): 10.00 Weight (Pounds): 174 Objective General Appearance: no apparent distress, alert, non-toxic HEENT: normocephalic, atraumatic bilateral eye PERRL, normal pharynx Neck: full range of motion, supple/symm/no masses Respiratory: chest non-tender, lungs clear, normal breath sounds, speaking full sentences Cardiovascular : regular rate, rhythm, no edema Gastrointestinal: normal bowel sounds, non tender, soft, non-distended, no guarding, no rebound Genitourinary: normal inspection, no CVA tenderness Musculoskeletal: back normal, gait/station normal, normal range of motion, non- tender Neurologic: alert, oriented x3, responsive, motor strength/tone normal, sensory intact, speech normal Psychiatric: judgement/insight normal, memory normal, mood/affect normal, no suicidal/homicidal ideation Skin: other - large ulcer to L ankle. surrounding erythema/induration Microbiology Date/Time Source Procedure Growth Status 12/26/18 11:25 Blood Blood Culture - Preliminary NO GROWTH AFTER 24 HOURS Resulted 12/26/18 11:10 Blood Blood Culture - Preliminary NO GROWTH AFTER 24 HOURS Resulted 12/26/18 12:00 Wound Gram Stain - Final Resulted 12/26/18 12:00 Wound Culture - Preliminary Gram Negative Bacillus 1 Streptococcus Group G Resulted 12/26/18 13:38 Nasal Nares MRSA Culture - Final NO METHICILLIN RESISTANT STAPH AUREUS... Complete Laboratory Tests Test 12/28/18 03:59 White Blood Count 9.9 K/UL (4.8-10.8) Red Blood Count 3.00 M/UL (4.70-6.10) L Hemoglobin 8.6 G/DL (14.2-18.0) L Hematocrit 27.3 % (42.0-52.0) L Mean Corpuscular Volume 91 FL (80-99) Mean Corpuscular Hemoglobin 28.8 PG (27.0-31.0) Mean Corpuscular Hemoglobin Concent 31.6 G/DL (32.0-36.0) L Red Cell Distribution Width 14.3 % (11.6-14.8) Platelet Count 225 K/UL (150-450) Mean Platelet Volume 6.2 FL (6.5-10.1) L Neutrophils (%) (Auto) 62.6 % (45.0-75.0) Lymphocytes (%) (Auto) 20.6 % (20.0-45.0) Monocytes (%) (Auto) 12.7 % (1.0-10.0) H Eosinophils (%) (Auto) 3.3 % (0.0-3.0) H Basophils (%) (Auto) 0.8 % (0.0-2.0) Differential Total Cells Counted 100 Neutrophils % (Manual) 62 % (45-75) Lymphocytes % (Manual) 23 % (20-45) Monocytes % (Manual) 13 % (1-10) H Eosinophils % (Manual) 2 % (0-3) Basophils % (Manual) 0 % (0-2) Band Neutrophils 0 % (0-8) Platelet Estimate Adequate Platelet Morphology Normal Hypochromasia 1+ Anisocytosis Erythrocyte Sedimentation Rate 116 MM/HR (0-20) H Reticulocyte Count 0.9 % (0.0-2.0) Prothrombin Time 10.9 SEC (9.30-11.50) Prothromb Time International Ratio 1.0 (0.9-1.1) Activated Partial Thromboplast Time 29 SEC (23-33) Iron Level 33 ug/dL (50-175) L Total Iron Binding Capacity 169 ug/dL (250-450) L Percent Iron Saturation 20 % (15-50) Unsaturated Iron Binding 136 ug/dL (112-346) Lactate Dehydrogenase 118 U/L (81-234) Carcinoembryonic Antigen Pending Vitamin B12 Level 616 PG/ML (193-986) Folate 27.8 NG/ML (8.6-58.9) Vancomycin Level Trough 19.5 ug/mL (5.0-12.0) H Current Medications Medications (Trade) Dose Ordered Sig/Taco Route PRN Reason Start Time Stop Time Status Last Admin Dose Admin Acetaminophen (Tylenol) 650 mg Q4H PRN ORAL fever 12/26/18 19:30 01/25/19 19:29 Albuterol/ Ipratropium (Albuterol/ Ipratropium) 3 ml Q4H PRN HHN Shortness of Breath 12/26/18 19:30 12/31/18 19:29 Amlodipine Besylate (Norvasc) 10 mg DAILY ORAL 12/27/18 09:00 01/26/19 08:59 12/27/18 08:34 Benazepril HCl (Lotensin) 10 mg DAILY ORAL 12/27/18 09:00 01/26/19 08:59 12/27/18 08:35 Benztropine Mesylate (Cogentin) 1 mg THREE TIMES A DAY ORAL 12/27/18 18:00 01/26/19 17:59 12/28/18 13:20 Clonidine HCl (Catapres Tab) 0.1 mg Q6H PRN ORAL For High Blood Pressure 12/26/18 20:00 01/25/19 19:59 Clopidogrel Bisulfate (Plavix) 75 mg DAILY ORAL 12/27/18 09:00 01/26/19 08:59 12/28/18 10:31 Dextrose (Dextrose 50%) 25 ml Q30M PRN IV Hypoglycemia 12/26/18 19:45 01/25/19 19:33 Dextrose (Dextrose 50%) 50 ml Q30M PRN IV hypoglycemia 12/26/18 19:45 01/25/19 19:44 Divalproex Sodium (Depakote) 250 mg Q12HR ORAL 12/26/18 21:00 01/25/19 20:59 12/28/18 10:32 Gabapentin (Neurontin) 300 mg THREE TIMES A DAY ORAL 12/27/18 09:00 01/26/19 08:59 12/28/18 13:20 Haloperidol (Haldol) 5 mg TID ORAL 12/27/18 18:00 01/26/19 17:59 12/28/18 13:20 Heparin Sodium (Porcine) (Heparin 5000 units/ml) 5,000 units EVERY 12 HOURS SUBQ 12/26/18 21:00 01/25/19 20:59 12/28/18 10:32 Insulin Aspart (NovoLOG) BEFORE MEALS AND HS SUBQ 12/26/18 21:00 01/25/19 20:59 Magnesium Hydroxide (Mom) 30 ml DAILYPRN PRN ORAL Constipation 12/26/18 20:00 01/25/19 19:59 Morphine Sulfate (Morphine Sulfate) 2 mg Q4H PRN IVP Moderate Pain (Pain Scale 4-6) 12/26/18 19:30 01/02/19 19:29 12/27/18 14:00 Nitroglycerin (Ntg) 0.4 mg Q5M PRN SL Prn Chest Pain 12/26/18 19:30 01/25/19 19:29 Ondansetron HCl (Zofran) 4 mg Q6H PRN IVP Nausea & Vomiting 12/26/18 19:30 01/25/19 19:29 Pantoprazole (Protonix) 40 mg DAILY ORAL 12/27/18 09:00 01/26/19 08:59 12/28/18 10:33 Paroxetine HCl (Paxil) 30 mg DAILY ORAL 12/27/18 09:00 01/26/19 08:59 12/28/18 10:34 Polyethylene Glycol (Miralax) 17 gm DAILYPRN PRN ORAL Constipation 12/26/18 20:00 01/25/19 19:29 Quetiapine Fumarate (SEROquel) 100 mg THREE TIMES A DAY ORAL 12/27/18 09:00 01/26/19 08:59 12/28/18 13:20 Tamsulosin HCl (Flomax) 0.4 mg BEDTIME ORAL 12/26/18 21:00 01/25/19 20:59 12/27/18 21:45 Temazepam (Restoril) 15 mg HSPRN PRN ORAL Insomnia 12/26/18 19:30 01/02/19 19:29 Trazodone HCl (Desyrel) 100 mg BEDTIME ORAL 12/26/18 21:00 01/25/19 20:59 12/27/18 21:45 Vancomycin HCl (Vanco rx to dose) 1 ea DAILY PRN MISC PER PHARMACY 12/26/18 19:45 01/25/19 19:44 Vancomycin HCl 750 mg/Sodium Chloride 275 ml @ 183.333 mls/hr Q12H IVPB 12/28/18 06:00 01/02/19 05:59 12/28/18 06:14 Mireya Campos M.D. Dec 28, 2018 16:17
--- NOTE | 2018-12-28 17:08 | Pulmonology Progress Note ---
Assessment/Plan Problems: (1) Cellulitis (2) Severe anemia (3) Hypertension (4) UTI (urinary tract infection) (5) Schizoaffective disorder (6) Diabetes (7) History of CVA (cerebrovascular accident) Assessment/Plan all reviewed wound care IV abx check cultures iv fluids symptomatic treatment respiratory treatment dvt prophylaxis. Subjective ROS Limited/Unobtainable: No HEENT: Repors: no symptoms Respiratory: Reports: no symptoms Allergies: Coded Allergies: THIORIDAZINE (Unverified Allergy, Mild, HIVES, 04/06/15) PENICILLIN (Unverified Allergy, Unknown, 06/15/15) PENICILLINS (Unverified Allergy, Unknown, 11/24/17) Objective Last 24 Hour Vital Signs Date Time Temp Pulse Resp B/P (MAP) Pulse Ox O2 Delivery O2 Flow Rate FiO2 12/28/18 16:00 98.1 92 19 150/76 (100) 99 12/28/18 12:00 98.6 79 112/78 (89) 12/28/18 09:00 109/66 12/28/18 09:00 89 109/66 12/28/18 08:15 89 16 Room Air 21 12/28/18 08:00 Room Air 12/28/18 08:00 98.7 84 109/66 (80) 12/28/18 00:00 96.4 73 17 95/50 (65) 98 12/27/18 21:00 Room Air 12/27/18 20:00 96.9 92 18 106/52 (70) 97 Intake and Output 12/27/18 12/28/18 19:00 07:00 Intake Total 366.6 ml Output Total 5 ml Balance 366.6 ml -5 ml IV Total 366.6 ml Output Urine Total 5 ml # Bowel Movements 1 Objective General Appearance: WD/WN Lines, tubes and drains: peripheral HEENT: normocephalic, atraumatic Neck: non-tender, supple Respiratory/Chest: chest wall non-tender, lungs clear Breasts: no masses Cardiovascular/Chest: normal rate, no JVD Abdomen: normal bowel sounds Genitourinary/Rectal: normal genital exam, heme negative stool Extremities: normal range of motion, non-tender Skin Exam: normal pigmentation 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 Complete Laboratory Tests 12/28/18 03:59: White Blood Count 9.9, Red Blood Count 3.00L, Hemoglobin 8.6L, Hematocrit 27.3L , Mean Corpuscular Volume 91, Mean Corpuscular Hemoglobin 28.8, Mean Corpuscular Hemoglobin Concent 31.6L, Red Cell Distribution Width 14.3, Platelet Count 225, Mean Platelet Volume 6.2L, Neutrophils (%) (Auto) 62.6, Lymphocytes (%) (Auto) 20.6, Monocytes (%) (Auto) 12.7H, Eosinophils (%) (Auto) 3.3H, Basophils (%) (Auto) 0.8, Differential Total Cells Counted 100, Neutrophils % (Manual) 62, Lymphocytes % (Manual) 23, Monocytes % (Manual) 13H, Eosinophils % (Manual) 2, Basophils % (Manual) 0, Band Neutrophils 0, Platelet Estimate Adequate, Platelet Morphology Normal, Hypochromasia 1+, Anisocytosis , Erythrocyte Sedimentation Rate 116H, Reticulocyte Count 0.9, Prothrombin Time 10.9, Prothromb Time International Ratio 1.0, Activated Partial Thromboplast Time 29, Iron Level 33L, Total Iron Binding Capacity 169L, Percent Iron Saturation 20, Unsaturated Iron Binding 136, Lactate Dehydrogenase 118, Carcinoembryonic Antigen [Pending], Vitamin B12 Level 616, Folate 27.8, Vancomycin Level Trough 19.5H Current Medications Medications (Trade) Dose Ordered Sig/Taco Route PRN Reason Start Time Stop Time Status Last Admin Dose Admin Acetaminophen (Tylenol) 650 mg Q4H PRN ORAL fever 12/26/18 19:30 01/25/19 19:29 Albuterol/ Ipratropium (Albuterol/ Ipratropium) 3 ml Q4H PRN HHN Shortness of Breath 12/26/18 19:30 12/31/18 19:29 Amlodipine Besylate (Norvasc) 10 mg DAILY ORAL 12/27/18 09:00 01/26/19 08:59 12/27/18 08:34 Benazepril HCl (Lotensin) 10 mg DAILY ORAL 12/27/18 09:00 01/26/19 08:59 12/27/18 08:35 Benztropine Mesylate (Cogentin) 1 mg THREE TIMES A DAY ORAL 12/27/18 18:00 01/26/19 17:59 12/28/18 13:20 Clonidine HCl (Catapres Tab) 0.1 mg Q6H PRN ORAL For High Blood Pressure 12/26/18 20:00 01/25/19 19:59 Clopidogrel Bisulfate (Plavix) 75 mg DAILY ORAL 12/27/18 09:00 01/26/19 08:59 12/28/18 10:31 Dextrose (Dextrose 50%) 25 ml Q30M PRN IV Hypoglycemia 12/26/18 19:45 01/25/19 19:33 Dextrose (Dextrose 50%) 50 ml Q30M PRN IV hypoglycemia 12/26/18 19:45 01/25/19 19:44 Divalproex Sodium (Depakote) 250 mg Q12HR ORAL 12/26/18 21:00 01/25/19 20:59 12/28/18 10:32 Doxycycline Monohydrate (Vibramycin) 100 mg EVERY 12 HOURS ORAL 12/28/18 18:00 01/04/19 17:59 Gabapentin (Neurontin) 300 mg THREE TIMES A DAY ORAL 12/27/18 09:00 01/26/19 08:59 12/28/18 13:20 Haloperidol (Haldol) 5 mg TID ORAL 12/27/18 18:00 01/26/19 17:59 12/28/18 13:20 Heparin Sodium (Porcine) (Heparin 5000 units/ml) 5,000 units EVERY 12 HOURS SUBQ 12/26/18 21:00 01/25/19 20:59 12/28/18 10:32 Insulin Aspart (NovoLOG) BEFORE MEALS AND HS SUBQ 12/26/18 21:00 01/25/19 20:59 Magnesium Hydroxide (Mom) 30 ml DAILYPRN PRN ORAL Constipation 12/26/18 20:00 01/25/19 19:59 Morphine Sulfate (Morphine Sulfate) 2 mg Q4H PRN IVP Moderate Pain (Pain Scale 4-6) 2/27/19 19:30 01/02/19 19:29 12/27/18 14:00 Nitroglycerin (Ntg) 0.4 mg Q5M PRN SL Prn Chest Pain 12/26/18 19:30 01/25/19 19:29 Ondansetron HCl (Zofran) 4 mg Q6H PRN IVP Nausea & Vomiting 12/26/18 19:30 01/25/19 19:29 Pantoprazole (Protonix) 40 mg DAILY ORAL 12/27/18 09:00 01/26/19 08:59 12/28/18 10:33 Paroxetine HCl (Paxil) 30 mg DAILY ORAL 12/27/18 09:00 01/26/19 08:59 12/28/18 10:34 Polyethylene Glycol (Miralax) 17 gm DAILYPRN PRN ORAL Constipation 12/26/18 20:00 01/25/19 19:29 Quetiapine Fumarate (SEROquel) 100 mg THREE TIMES A DAY ORAL 12/27/18 09:00 01/26/19 08:59 12/28/18 13:20 Tamsulosin HCl (Flomax) 0.4 mg BEDTIME ORAL 12/26/18 21:00 01/25/19 20:59 12/27/18 21:45 Temazepam (Restoril) 15 mg HSPRN PRN ORAL Insomnia 12/26/18 19:30 01/02/19 19:29 Trazodone HCl (Desyrel) 100 mg BEDTIME ORAL 12/26/18 21:00 01/25/19 20:59 12/27/18 21:45 Vanesa Skinner MD Dec 28, 2018 17:08
[2018-12-28] MEDS: Morphine Sulfate 2mg/ml Inj(IV/IM USE ONLY) IVP PRN (18:06)
--- NOTE | 2018-12-28 19:08 | NUR ---
HAND-OFF: Report given to OLGA Nicholas.
--- NOTE | 2018-12-28 19:35 | NUR ---
NURSE NOTES: Patient in bed, awake, alert, periods of confusion. Able to make needs known. Bed in low and locked position. Provided safe environment. Skin is warm and dry . Iv site noted. Lower extremity dressing noted, intact, dry. Abdomen is soft. Respiration is even and unlabored. NO complaint of pain or discomfort noted. Call light is at bedside. Will continue plan of care.
[2018-12-28 19:54] VITALS: BP 108/50
[2018-12-28] MEDS: Tamsulosin 0.4mg cap ORAL SCH (20:13)
[2018-12-28] MEDS: TraZODone 100mg tab ORAL SCH (20:13)
[2018-12-29] VITALS: BP 134/63
[2018-12-29 04:00] VITALS: BP 150/66
[2018-12-29] MEDS: NovoLOG Insulin Flexpen SUBQ SCH ×4 (06:30→20:21)
--- NOTE | 2018-12-29 07:16 | NUR ---
HAND-OFF: Report given to OLGA Dos Santos.
--- NOTE | 2018-12-29 07:30 | NUR ---
NURSE NOTES: Received patient on bed, awake. IV site intact and patent. Dressing dry and intact. Bed in low and locked position, call light in reach. No signs of respiratory distress or pain. Room board updated, will continue to monitor.
[2018-12-29 08:00] VITALS: BP 144/68
[2018-12-29 08:09] LABS: BASOPHILS % (AUTO) 1.3 % (0.0-2.0); EOSINOPHILS % (AUTO) 4.1 % (0.0-3.0); HEMATOCRIT 31.2 % (42.0-52.0); HEMOGLOBIN 9.7 G/DL (14.2-18.0); LYMPHOCYTES % (AUTO) 20.5 % (20.0-45.0); MEAN CORPUSCULAR VOLUME 91 FL (80-99); MONOCYTES % (AUTO) 11.4 % (1.0-10.0); NEUTROPHILS % (AUTO) 62.6 % (45.0-75.0); PLATELET COUNT 244 K/UL (150-450); RED BLOOD COUNT 3.42 M/UL (4.70-6.10); RED CELL DISTRIBUTION WIDTH 14.3 % (11.6-14.8)
[2018-12-29 08:23] LABS: ANION GAP 9 mmol/L (5-15); BLOOD UREA NITROGEN 29 mg/dL (7-18); CALCIUM 9.7 MG/DL (8.5-10.1); CARBON DIOXIDE 28 MMOL/L (21-32); CHLORIDE 102 MMOL/L (98-107); CREATININE 1.2 MG/DL (0.55-1.30); POTASSIUM 4.5 MMOL/L (3.5-5.1); SODIUM 139 MMOL/L (136-145)
[2018-12-29] MEDS: Benazepril 10mg tab ORAL SCH (08:35)
[2018-12-29] MEDS: PARoxetine 10mg tab ORAL SCH (08:35)
[2018-12-29] MEDS: Benztropine 1mg tab ORAL SCH ×3 (08:36→18:10)
[2018-12-29] MEDS: Heparin 5000 units/ml inj SUBQ SCH ×2 (08:37→20:21)
[2018-12-29] MEDS: Morphine Sulfate 2mg/ml Inj(IV/IM USE ONLY) IVP PRN (08:43)
--- NOTE | 2018-12-29 09:08 | General Progress Note ---
Assessment/Plan Problem List: (1) History of CVA (cerebrovascular accident) ICD Codes: Z86.73 - Personal history of transient ischemic attack (TIA), and cerebral infarction without residual deficits SNOMED: 692153976 (2) Cellulitis ICD Codes: L03.90 - Cellulitis, unspecified SNOMED: 639277151 (3) Anemia ICD Codes: D64.9 - Anemia SNOMED: 403094548 (4) Diabetes ICD Codes: E11.9 - Diabetes SNOMED: 33627644 (5) Hypertension ICD Codes: I10 - Hypertension SNOMED: 73192710 (6) Failure to thrive in adult ICD Codes: R62.7 - Adult failure to thrive SNOMED: 541411140 (7) Ulcer of left ankle ICD Codes: L97.329 - Non-pressure chronic ulcer of left ankle with unspecified severity SNOMED: 794093162, 95304544 Qualifiers: Qualified Codes: L97.322 - Non-pressure chronic ulcer of left ankle with fat layer exposed Status: unchanged Assessment/Plan wound care abx pain control cbc bmp am ltach eval Subjective Constitutional: Reports: weakness Allergies: Coded Allergies: THIORIDAZINE (Unverified Allergy, Mild, HIVES, 04/06/15) PENICILLIN (Unverified Allergy, Unknown, 06/15/15) PENICILLINS (Unverified Allergy, Unknown, 11/24/17) All Systems: reviewed and negative except above Subjective sl foot pain Objective Last 24 Hour Vital Signs Date Time Temp Pulse Resp B/P (MAP) Pulse Ox O2 Delivery O2 Flow Rate FiO2 12/29/18 08:35 144/68 12/29/18 08:35 67 144/68 12/29/18 08:00 97.9 67 18 144/68 (93) 99 12/29/18 04:00 97.7 64 18 150/66 (94) 100 12/29/18 00:00 98.5 73 16 134/63 (86) 98 12/28/18 21:00 Room Air Room Air 12/28/18 19:54 98.0 74 18 108/50 (69) 99 12/28/18 16:00 98.1 92 19 150/76 (100) 99 12/28/18 12:00 98.6 79 112/78 (89) Intake and Output 12/28/18 12/29/18 19:00 07:00 Intake Total 900 ml 500 ml Output Total 300 ml Balance 900 ml 200 ml Intake Oral 500 ml Other 900 ml Output Urine Total 300 ml # Voids 5 2 Laboratory Tests 12/29/18 05:00: White Blood Count 8.0, Red Blood Count 3.42L, Hemoglobin 9.7L, Hematocrit 31.2L , Mean Corpuscular Volume 91, Mean Corpuscular Hemoglobin 28.5, Mean Corpuscular Hemoglobin Concent 31.3L, Red Cell Distribution Width 14.3, Platelet Count 244, Mean Platelet Volume 6.4L, Neutrophils (%) (Auto) 62.6, Lymphocytes (%) (Auto) 20.5, Monocytes (%) (Auto) 11.4H, Eosinophils (%) (Auto) 4.1H, Basophils (%) (Auto) 1.3, Sodium Level 139, Potassium Level 4.5, Chloride Level 102, Carbon Dioxide Level 28, Anion Gap 9, Blood Urea Nitrogen 29H, Creatinine 1.2, Estimat Glomerular Filtration Rate > 60, Glucose Level 80, Calcium Level 9.7 Height (Feet): 5 Height (Inches): 10.00 Weight (Pounds): 174 General Appearance: lethargic EENT: normal ENT inspection Neck: normal alignment Cardiovascular: normal peripheral pulses, normal rate, regular rhythm Respiratory/Chest: chest wall non-tender, lungs clear, normal breath sounds Abdomen: normal bowel sounds, non tender, soft Extremities: normal inspection Edema: no edema noted Arm (L), no edema noted Arm (R), no edema noted Leg (L), no edema noted Leg (R), no edema noted Pedal (L), no edema noted Pedal (R), no edema noted Generalized Neurologic: responsive, motor weakness Skin: normal pigmentation, warm/dry Objective foot dressing sl stained Jarek Gonzalez DO Dec 29, 2018 09:08
--- NOTE | 2018-12-29 11:56 | Surgery Progress Note ---
Surgery Progress Note Subjective Additional Comments no acute events. doing okay resting comfortable. Objective Last 24 Hour Vital Signs Date Time Temp Pulse Resp B/P (MAP) Pulse Ox O2 Delivery O2 Flow Rate FiO2 12/29/18 09:00 Room Air Room Air 12/29/18 08:35 144/68 12/29/18 08:35 67 144/68 12/29/18 08:00 97.9 67 18 144/68 (93) 99 12/29/18 04:00 97.7 64 18 150/66 (94) 100 12/29/18 00:00 98.5 73 16 134/63 (86) 98 12/28/18 21:00 Room Air Room Air 12/28/18 19:54 98.0 74 18 108/50 (69) 99 12/28/18 16:00 98.1 92 19 150/76 (100) 99 12/28/18 12:00 98.6 79 112/78 (89) I&O Intake and Output 12/28/18 12/29/18 19:00 07:00 Intake Total 900 ml 500 ml Output Total 300 ml Balance 900 ml 200 ml Intake Oral 500 ml Other 900 ml Output Urine Total 300 ml # Voids 5 2 Dressing: saturated Wound: other Cardiovascular: RSR Respiratory: clear Abdomen: soft, non-tender, non-distended Extremities: tenderness, cyanosis Laboratory Tests Test 12/29/18 05:00 White Blood Count 8.0 K/UL (4.8-10.8) Red Blood Count 3.42 M/UL (4.70-6.10) L Hemoglobin 9.7 G/DL (14.2-18.0) L Hematocrit 31.2 % (42.0-52.0) L Mean Corpuscular Volume 91 FL (80-99) Mean Corpuscular Hemoglobin 28.5 PG (27.0-31.0) Mean Corpuscular Hemoglobin Concent 31.3 G/DL (32.0-36.0) L Red Cell Distribution Width 14.3 % (11.6-14.8) Platelet Count 244 K/UL (150-450) Mean Platelet Volume 6.4 FL (6.5-10.1) L Neutrophils (%) (Auto) 62.6 % (45.0-75.0) Lymphocytes (%) (Auto) 20.5 % (20.0-45.0) Monocytes (%) (Auto) 11.4 % (1.0-10.0) H Eosinophils (%) (Auto) 4.1 % (0.0-3.0) H Basophils (%) (Auto) 1.3 % (0.0-2.0) Sodium Level 139 MMOL/L (136-145) Potassium Level 4.5 MMOL/L (3.5-5.1) Chloride Level 102 MMOL/L (98-107) Carbon Dioxide Level 28 MMOL/L (21-32) Anion Gap 9 mmol/L (5-15) Blood Urea Nitrogen 29 mg/dL (7-18) H Creatinine 1.2 MG/DL (0.55-1.30) Estimat Glomerular Filtration Rate > 60 mL/min (>60) Glucose Level 80 MG/DL (74-106) Calcium Level 9.7 MG/DL (8.5-10.1) Plan Problems: (1) Ulcer of left ankle Assessment & Plan: large chronic left ankle ulceration near circumferential on left ankle. full thickness with eschar on some areas and some areas of granulation tissue. no drainage. no fluctuance. tender, periwound okay. pulses diminished. calf okay. foot with decreased cap refill. please see photos Plain films noted venous duplex without dvt and patent. labs noted long discussion about wound and leg with patient. states he has no intention of having debridement, grafting, or amputation at anytime. -wash left ankle daily with NS. apply xeroform to wound, ABD, and wrap with kerlix thank you will follow with recs. Devon Sullivan Dec 29, 2018 11:56
--- NOTE | 2018-12-29 11:56 | Pulmonology Progress Note ---
Assessment/Plan Problems: (1) Cellulitis (2) Severe anemia (3) Hypertension (4) UTI (urinary tract infection) (5) Schizoaffective disorder (6) Diabetes (7) History of CVA (cerebrovascular accident) Assessment/Plan all reviewed wound care IV abx check cultures iv fluids symptomatic treatment respiratory treatment dvt prophylaxis. Subjective ROS Limited/Unobtainable: Yes Allergies: Coded Allergies: THIORIDAZINE (Unverified Allergy, Mild, HIVES, 04/06/15) PENICILLIN (Unverified Allergy, Unknown, 06/15/15) PENICILLINS (Unverified Allergy, Unknown, 11/24/17) Objective Last 24 Hour Vital Signs Date Time Temp Pulse Resp B/P (MAP) Pulse Ox O2 Delivery O2 Flow Rate FiO2 12/29/18 09:00 Room Air Room Air 12/29/18 08:35 144/68 12/29/18 08:35 67 144/68 12/29/18 08:00 97.9 67 18 144/68 (93) 99 12/29/18 04:00 97.7 64 18 150/66 (94) 100 12/29/18 00:00 98.5 73 16 134/63 (86) 98 12/28/18 21:00 Room Air Room Air 12/28/18 19:54 98.0 74 18 108/50 (69) 99 12/28/18 16:00 98.1 92 19 150/76 (100) 99 12/28/18 12:00 98.6 79 112/78 (89) Intake and Output 12/28/18 12/29/18 19:00 07:00 Intake Total 900 ml 500 ml Output Total 300 ml Balance 900 ml 200 ml Intake Oral 500 ml Other 900 ml Output Urine Total 300 ml # Voids 5 2 Objective General Appearance: WD/WN Lines, tubes and drains: peripheral HEENT: normocephalic, atraumatic Neck: non-tender, supple Respiratory/Chest: chest wall non-tender, lungs clear Breasts: no masses Cardiovascular/Chest: normal rate, no JVD Abdomen: normal bowel sounds Genitourinary/Rectal: normal genital exam, heme negative stool Extremities: normal range of motion, non-tender Skin Exam: normal pigmentation Neurologic: secured entrance monitor II-XII 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 Microbiology Date/Time Source Procedure Growth Status 12/26/18 12:00 Wound Gram Stain - Final Resulted 12/26/18 12:00 Wound Culture - Preliminary Morganella Morg Spp Morganii Streptococcus Group G Gram Negative Bacillus 2 Resulted 12/26/18 13:38 Nasal Nares MRSA Culture - Final NO METHICILLIN RESISTANT STAPH AUREUS... Complete 12/26/18 13:38 Rectum VRE Culture - Final NO VANCOMYCIN RESISTANT ENTEROCOCCUS ... Complete Laboratory Tests 12/29/18 05:00: White Blood Count 8.0, Red Blood Count 3.42L, Hemoglobin 9.7L, Hematocrit 31.2L , Mean Corpuscular Volume 91, Mean Corpuscular Hemoglobin 28.5, Mean Corpuscular Hemoglobin Concent 31.3L, Red Cell Distribution Width 14.3, Platelet Count 244, Mean Platelet Volume 6.4L, Neutrophils (%) (Auto) 62.6, Lymphocytes (%) (Auto) 20.5, Monocytes (%) (Auto) 11.4H, Eosinophils (%) (Auto) 4.1H, Basophils (%) (Auto) 1.3, Sodium Level 139, Potassium Level 4.5, Chloride Level 102, Carbon Dioxide Level 28, Anion Gap 9, Blood Urea Nitrogen 29H, Creatinine 1.2, Estimat Glomerular Filtration Rate > 60, Glucose Level 80, Calcium Level 9.7 Current Medications Medications (Trade) Dose Ordered Sig/Taco Route PRN Reason Start Time Stop Time Status Last Admin Dose Admin Acetaminophen (Tylenol) 650 mg Q4H PRN ORAL fever 12/26/18 19:30 01/25/19 19:29 Albuterol/ Ipratropium (Albuterol/ Ipratropium) 3 ml Q4H PRN HHN Shortness of Breath 12/26/18 19:30 12/31/18 19:29 Amlodipine Besylate (Norvasc) 10 mg DAILY ORAL 12/27/18 09:00 01/26/19 08:59 12/29/18 08:35 Benazepril HCl (Lotensin) 10 mg DAILY ORAL 12/27/18 09:00 01/26/19 08:59 12/29/18 08:35 Benztropine Mesylate (Cogentin) 1 mg THREE TIMES A DAY ORAL 12/27/18 18:00 01/26/19 17:59 12/29/18 08:36 Clonidine HCl (Catapres Tab) 0.1 mg Q6H PRN ORAL For High Blood Pressure 12/26/18 20:00 01/25/19 19:59 Clopidogrel Bisulfate (Plavix) 75 mg DAILY ORAL 12/27/18 09:00 01/26/19 08:59 12/29/18 08:36 Dextrose (Dextrose 50%) 25 ml Q30M PRN IV Hypoglycemia 12/26/18 19:45 01/25/19 19:33 Dextrose (Dextrose 50%) 50 ml Q30M PRN IV hypoglycemia 12/26/18 19:45 01/25/19 19:44 Divalproex Sodium (Depakote) 250 mg Q12HR ORAL 12/26/18 21:00 01/25/19 20:59 12/29/18 08:36 Doxycycline Monohydrate (Vibramycin) 100 mg EVERY 12 HOURS ORAL 12/28/18 18:00 01/04/19 17:59 12/29/18 08:35 Gabapentin (Neurontin) 300 mg THREE TIMES A DAY ORAL 12/27/18 09:00 01/26/19 08:59 12/29/18 08:36 Haloperidol (Haldol) 5 mg TID ORAL 12/27/18 18:00 01/26/19 17:59 12/29/18 08:36 Heparin Sodium (Porcine) (Heparin 5000 units/ml) 5,000 units EVERY 12 HOURS SUBQ 12/26/18 21:00 01/25/19 20:59 12/29/18 08:37 Insulin Aspart (NovoLOG) BEFORE MEALS AND HS SUBQ 12/26/18 21:00 01/25/19 20:59 12/28/18 17:27 Magnesium Hydroxide (Mom) 30 ml DAILYPRN PRN ORAL Constipation 12/26/18 20:00 01/25/19 19:59 Morphine Sulfate (Morphine Sulfate) 2 mg Q4H PRN IVP Moderate Pain (Pain Scale 4-6) 12/26/18 19:30 01/02/19 19:29 12/29/18 08:43 Nitroglycerin (Ntg) 0.4 mg Q5M PRN SL Prn Chest Pain 12/26/18 19:30 01/25/19 19:29 Ondansetron HCl (Zofran) 4 mg Q6H PRN IVP Nausea & Vomiting 12/26/18 19:30 01/25/19 19:29 12/29/18 09:04 Pantoprazole (Protonix) 40 mg DAILY ORAL 12/27/18 09:00 01/26/19 08:59 12/29/18 08:36 Paroxetine HCl (Paxil) 30 mg DAILY ORAL 12/27/18 09:00 01/26/19 08:59 12/29/18 08:35 Polyethylene Glycol (Miralax) 17 gm DAILYPRN PRN ORAL Constipation 12/26/18 20:00 01/25/19 19:29 Quetiapine Fumarate (SEROquel) 100 mg THREE TIMES A DAY ORAL 12/27/18 09:00 01/26/19 08:59 12/29/18 08:35 Tamsulosin HCl (Flomax) 0.4 mg BEDTIME ORAL 12/26/18 21:00 01/25/19 20:59 12/28/18 20:13 Temazepam (Restoril) 15 mg HSPRN PRN ORAL Insomnia 12/26/18 19:30 01/02/19 19:29 Trazodone HCl (Desyrel) 100 mg BEDTIME ORAL 12/26/18 21:00 01/25/19 20:59 12/28/18 20:13 Vanesa Skinner MD Dec 29, 2018 11:56
[2018-12-29 12:00] VITALS: BP 103/53
--- NOTE | 2018-12-29 12:28 | Infectious Diseases Prog Note ---
Assessment/Plan Assessment/Plan Assessment: L ankle ulcer- mild gavin wound cellulitis;ulcer itself not infected Wnd : Morg. M , StrpGrpG, GNR ( colonizer ) -Xray ankle: No definite acute bony process. Possible lateral soft tissue irregularity-correlate with clinical findings Afebrile Mild leukocytosis; SP DM2 HTN COPD SNF resident Plan: - PO Doxy d# 2 IV Vancomycin #3 12/28 -s/p IV Vancomycin x1 12/26 -f/u cx -Monitor CBC/CMP, temperatures -wound care Subjective Allergies: Coded Allergies: THIORIDAZINE (Unverified Allergy, Mild, HIVES, 04/06/15) PENICILLIN (Unverified Allergy, Unknown, 06/15/15) PENICILLINS (Unverified Allergy, Unknown, 11/24/17) Subjective Comfortable Objective Vital Signs Last 24 Hour Vital Signs Date Time Temp Pulse Resp B/P (MAP) Pulse Ox O2 Delivery O2 Flow Rate FiO2 12/29/18 12:00 97.2 68 17 103/53 (70) 98 12/29/18 09:00 Room Air Room Air 12/29/18 08:35 144/68 12/29/18 08:35 67 144/68 12/29/18 08:00 97.9 67 18 144/68 (93) 99 12/29/18 04:00 97.7 64 18 150/66 (94) 100 12/29/18 00:00 98.5 73 16 134/63 (86) 98 12/28/18 21:00 Room Air Room Air 12/28/18 19:54 98.0 74 18 108/50 (69) 99 12/28/18 16:00 98.1 92 19 150/76 (100) 99 Height (Feet): 5 Height (Inches): 10.00 Weight (Pounds): 174 HEENT: atraumatic Respiratory/Chest: no respiratory distress Cardiovascular: regular rhythm Abdomen: no organomegaly Microbiology Date/Time Source Procedure Growth Status 12/26/18 13:38 Nasal Nares MRSA Culture - Final NO METHICILLIN RESISTANT STAPH AUREUS... Complete 12/26/18 13:38 Rectum VRE Culture - Final NO VANCOMYCIN RESISTANT ENTEROCOCCUS ... Complete Laboratory Tests Test 12/29/18 05:00 White Blood Count 8.0 K/UL (4.8-10.8) Red Blood Count 3.42 M/UL (4.70-6.10) L Hemoglobin 9.7 G/DL (14.2-18.0) L Hematocrit 31.2 % (42.0-52.0) L Mean Corpuscular Volume 91 FL (80-99) Mean Corpuscular Hemoglobin 28.5 PG (27.0-31.0) Mean Corpuscular Hemoglobin Concent 31.3 G/DL (32.0-36.0) L Red Cell Distribution Width 14.3 % (11.6-14.8) Platelet Count 244 K/UL (150-450) Mean Platelet Volume 6.4 FL (6.5-10.1) L Neutrophils (%) (Auto) 62.6 % (45.0-75.0) Lymphocytes (%) (Auto) 20.5 % (20.0-45.0) Monocytes (%) (Auto) 11.4 % (1.0-10.0) H Eosinophils (%) (Auto) 4.1 % (0.0-3.0) H Basophils (%) (Auto) 1.3 % (0.0-2.0) Sodium Level 139 MMOL/L (136-145) Potassium Level 4.5 MMOL/L (3.5-5.1) Chloride Level 102 MMOL/L (98-107) Carbon Dioxide Level 28 MMOL/L (21-32) Anion Gap 9 mmol/L (5-15) Blood Urea Nitrogen 29 mg/dL (7-18) H Creatinine 1.2 MG/DL (0.55-1.30) Estimat Glomerular Filtration Rate > 60 mL/min (>60) Glucose Level 80 MG/DL (74-106) Calcium Level 9.7 MG/DL (8.5-10.1) Current Medications Medications (Trade) Dose Ordered Sig/Taco Route PRN Reason Start Time Stop Time Status Last Admin Dose Admin Acetaminophen (Tylenol) 650 mg Q4H PRN ORAL fever 12/26/18 19:30 01/25/19 19:29 Albuterol/ Ipratropium (Albuterol/ Ipratropium) 3 ml Q4H PRN HHN Shortness of Breath 12/26/18 19:30 12/31/18 19:29 Amlodipine Besylate (Norvasc) 10 mg DAILY ORAL 12/27/18 09:00 01/26/19 08:59 12/29/18 08:35 Benazepril HCl (Lotensin) 10 mg DAILY ORAL 12/27/18 09:00 01/26/19 08:59 12/29/18 08:35 Benztropine Mesylate (Cogentin) 1 mg THREE TIMES A DAY ORAL 12/27/18 18:00 01/26/19 17:59 12/29/18 08:36 Clonidine HCl (Catapres Tab) 0.1 mg Q6H PRN ORAL For High Blood Pressure 12/26/18 20:00 01/25/19 19:59 Clopidogrel Bisulfate (Plavix) 75 mg DAILY ORAL 12/27/18 09:00 01/26/19 08:59 12/29/18 08:36 Dextrose (Dextrose 50%) 25 ml Q30M PRN IV Hypoglycemia 12/26/18 19:45 01/25/19 19:33 Dextrose (Dextrose 50%) 50 ml Q30M PRN IV hypoglycemia 12/26/18 19:45 01/25/19 19:44 Divalproex Sodium (Depakote) 250 mg Q12HR ORAL 12/26/18 21:00 01/25/19 20:59 12/29/18 08:36 Doxycycline Monohydrate (Vibramycin) 100 mg EVERY 12 HOURS ORAL 12/28/18 18:00 01/04/19 17:59 12/29/18 08:35 Gabapentin (Neurontin) 300 mg THREE TIMES A DAY ORAL 12/27/18 09:00 01/26/19 08:59 12/29/18 08:36 Haloperidol (Haldol) 5 mg TID ORAL 12/27/18 18:00 01/26/19 17:59 12/29/18 08:36 Heparin Sodium (Porcine) (Heparin 5000 units/ml) 5,000 units EVERY 12 HOURS SUBQ 12/26/18 21:00 01/25/19 20:59 12/29/18 08:37 Insulin Aspart (NovoLOG) BEFORE MEALS AND HS SUBQ 12/26/18 21:00 01/25/19 20:59 12/28/18 17:27 Magnesium Hydroxide (Mom) 30 ml DAILYPRN PRN ORAL Constipation 12/26/18 20:00 01/25/19 19:59 Morphine Sulfate (Morphine Sulfate) 2 mg Q4H PRN IVP Moderate Pain (Pain Scale 4-6) 12/26/18 19:30 01/02/19 19:29 12/29/18 08:43 Nitroglycerin (Ntg) 0.4 mg Q5M PRN SL Prn Chest Pain 12/26/18 19:30 01/25/19 19:29 Ondansetron HCl (Zofran) 4 mg Q6H PRN IVP Nausea & Vomiting 12/26/18 19:30 01/25/19 19:29 12/29/18 09:04 Pantoprazole (Protonix) 40 mg DAILY ORAL 12/27/18 09:00 01/26/19 08:59 12/29/18 08:36 Paroxetine HCl (Paxil) 30 mg DAILY ORAL 12/27/18 09:00 01/26/19 08:59 12/29/18 08:35 Polyethylene Glycol (Miralax) 17 gm DAILYPRN PRN ORAL Constipation 12/26/18 20:00 01/25/19 19:29 Quetiapine Fumarate (SEROquel) 100 mg THREE TIMES A DAY ORAL 12/27/18 09:00 01/26/19 08:59 12/29/18 08:35 Tamsulosin HCl (Flomax) 0.4 mg BEDTIME ORAL 12/26/18 21:00 01/25/19 20:59 12/28/18 20:13 Temazepam (Restoril) 15 mg HSPRN PRN ORAL Insomnia 12/26/18 19:30 01/02/19 19:29 Trazodone HCl (Desyrel) 100 mg BEDTIME ORAL 12/26/18 21:00 01/25/19 20:59 12/28/18 20:13 Sadi Wong MD Dec 29, 2018 12:28
--- NOTE | 2018-12-29 13:12 | NUR ---
NURSE NOTES: Left foot dressing changed and wound photos taken.
[2018-12-29 16:00] VITALS: BP 126/62
--- NOTE | 2018-12-29 18:45 | Consultation ---
DATE OF CONSULTATION: 12/27/2018 NOTE: POOR AUDIO PSYCHOTHERAPY CONSULTATION PROGRESS NOTE HISTORY OF PRESENT ILLNESS: The patient is a 68-year-old male patient from [facility]. The patient was brought into the hospital for left ankle ulcer and cellulitis. He has had mood instability and feelings of helplessness and depression. For these reasons, he was referred for psychotherapeutic services. When this clinician assessed the patient, the patient was tearful and crying. The patient states that he is still sad and . He states that everyone and most of the people in his family have and he is alone. He denies suicidal or homicidal thoughts of ideation. He denies any auditory or visual hallucinations. However, he states that he feels depressed today. The patient has a history of schizoaffective disorder. The patient has been treated with psychotropic medications in the past. Very confused and disorganized. However, cooperative and alert. PAST MEDICAL HISTORY: Includes history of diabetes, hypertension, CVA, and anemia. ALLERGIES: The patient is allergic to penicillin and thioridazine. SUBSTANCE ABUSE HISTORY: The patient has a history of smoking cigarettes. Denies history of alcohol use or illicit substance use. PSYCHIATRIC HISTORY: The patient has a history of schizoaffective disorder and has a history of psychotropic medications in the past. SOCIAL HISTORY: The patient is a 68-year-old single male patient from [facility]. Financially sustained through [facility]. MENTAL STATUS EXAMINATION: The patient is alert and oriented to person and place. Mood is dysphoric. Affect is tearful. Thought process is dysphoric. Thought content, slightly confused. She has poor attention and concentration. Poor insight, judgment, and impulse control. Denies suicidal or homicidal thoughts of ideation. Denies any auditory or visual hallucinations at this time. DIAGNOSIS: Schizoaffective disorder, bipolar type. PLAN: This clinician assessed this patient. Provided the patient with supportive psychotherapy the patient's mood and catastrophic thoughts and cognitive distortions. Provided the patient with a reality thoughts. Discussed the positive feeding and positive coping skills including positive thought processes and thoughts and reality thoughts with this patient. negative and catastrophic thought process. Continue with the medication compliance with his . Psychotherapy provided for this patient. This clinician has reviewed the patient's chart and discussed the treatment with treatment team. Irvin Zheng PsyD. DR: FAVIOLA JOB#: [id number] CC:
--- NOTE | 2018-12-29 19:21 | NUR ---
HAND-OFF: Report given to OLGA Tate.
--- NOTE | 2018-12-29 19:28 | NUR ---
NURSE NOTES: Patient in bed, awake, alert and verbally responsive. Able to make needs known. Respiration is even and unlabored. Kept clean and comfortable. Bed in low and locked position. Provided safe environment. No complaint of pain or discomfort noted at this time. Skin warm and dry to touch. Noted with lower extremity dressing, intact, dry. Call light is at bedside. Will continue plan of care.
[2018-12-29 20:00] VITALS: BP 116/69
--- NOTE | 2018-12-29 20:00 | Progress Note ---
DATE: 12/29/2018 SUBJECTIVE: This 68-year-old male patient with left ankle ulcer. The patient continues to have some mood lability, agitation, and irritability worsened by stress of his medical illness. MENTAL STATUS EXAMINATION: This is a 68-year-old male. Appearance is disheveled. Attitude, irritable and agitated. Affect, guarded and restricted. Intellect poor. Mood depressed and anxious. Motor activity, psychomotor agitation. Attention span is poor. Orientation x2. Speech is pressured. Thought process, disorganized and illogical. Insight and judgment is poor. DIAGNOSIS: Schizoaffective, bipolar type. PLAN: My plan for this patient is to treat him with a psychotropic medication regimen, Haldol 5 mg three times a day, Depakote 250 mg twice a day, Neurontin 300 mg three times a day, Seroquel 100 mg three times a day, and trazodone 100 mg at bedtime. Provide him with 20 minutes of cognitive behavioral therapy to help him identify his automatic negative thoughts and help him convert those negative thoughts to more positive thoughts to reduce depression, anxiety, and mood lability and help him to have more adaptive behavioral pattern. A 20 minutes of cognitive behavioral therapy provided depression and anxiety . Uziel Collado M.D. DR: ZAY JOB#: [id number] CC:
[2018-12-29] MEDS: Tamsulosin 0.4mg cap ORAL SCH (20:18)
[2018-12-29] MEDS: TraZODone 100mg tab ORAL SCH (20:18)
[2018-12-30] VITALS: BP 122/60
[2018-12-30 04:00] VITALS: BP 122/67
[2018-12-30] MEDS: NovoLOG Insulin Flexpen SUBQ SCH ×4 (06:13→20:25)
--- NOTE | 2018-12-30 07:18 | NUR ---
HAND-OFF: Report given to OLGA Paz.
--- NOTE | 2018-12-30 07:41 | NUR ---
NURSE NOTES: received patient in bed, asleep, no sign of distress noted. IV access on RAC, saline locked. Dressing at bilateral feet dry and intact. Bed alexa the lowest position possible, call ligth within easy reach, siderails up x3. Will continue to monitor patient and follow up with the plan of care.
[2018-12-30] MEDS: Benztropine 1mg tab ORAL SCH ×3 (08:10→17:46)
[2018-12-30] MEDS: PARoxetine 10mg tab ORAL SCH (08:11)
[2018-12-30] MEDS: Heparin 5000 units/ml inj SUBQ SCH ×2 (08:13→20:25)
[2018-12-30 08:15] VITALS: BP 95/57
[2018-12-30] MEDS: Benazepril 10mg tab ORAL SCH (08:18)
--- NOTE | 2018-12-30 08:28 | General Progress Note ---
Assessment/Plan Problem List: (1) History of CVA (cerebrovascular accident) ICD Codes: Z86.73 - Personal history of transient ischemic attack (TIA), and cerebral infarction without residual deficits SNOMED: 472812681 (2) Cellulitis ICD Codes: L03.90 - Cellulitis, unspecified SNOMED: 847223520 (3) Anemia ICD Codes: D64.9 - Anemia SNOMED: 356346123 (4) Diabetes ICD Codes: E11.9 - Diabetes SNOMED: 06978425 (5) Hypertension ICD Codes: I10 - Hypertension SNOMED: 86311093 (6) Failure to thrive in adult ICD Codes: R62.7 - Adult failure to thrive SNOMED: 768956484 (7) Ulcer of left ankle ICD Codes: L97.329 - Non-pressure chronic ulcer of left ankle with unspecified severity SNOMED: 968580993, 77392921 Qualifiers: Qualified Codes: L97.322 - Non-pressure chronic ulcer of left ankle with fat layer exposed Status: unchanged Assessment/Plan wound care abx pain control cbc bmp am ltach eval Subjective Constitutional: Reports: weakness Allergies: Coded Allergies: THIORIDAZINE (Unverified Allergy, Mild, HIVES, 04/06/15) PENICILLIN (Unverified Allergy, Unknown, 06/15/15) PENICILLINS (Unverified Allergy, Unknown, 11/24/17) All Systems: reviewed and negative except above Subjective sl foot pain Objective Last 24 Hour Vital Signs Date Time Temp Pulse Resp B/P (MAP) Pulse Ox O2 Delivery O2 Flow Rate FiO2 12/30/18 08:19 108 95/57 12/30/18 08:18 95/57 12/30/18 08:15 97.3 108 18 99 95/57 (70) 12/30/18 04:00 97.3 80 17 122/67 (85) 96 12/30/18 00:00 97.8 67 17 122/60 (80) 99 12/29/18 20:49 Room Air Room Air 12/29/18 20:20 80 18 Room Air 21 12/29/18 20:00 97.2 85 17 116/69 (85) 98 12/29/18 16:00 98.3 77 20 126/62 (83) 96 12/29/18 12:00 97.2 68 17 103/53 (70) 98 12/29/18 09:00 Room Air Room Air 12/29/18 08:35 144/68 12/29/18 08:35 67 144/68 Intake and Output 12/29/18 12/30/18 18:59 06:59 Intake Total 1160 ml Balance 1160 ml Intake Oral 1160 ml # Voids 8 4 # Bowel Movements 1 Height (Feet): 5 Height (Inches): 10.00 Weight (Pounds): 174 General Appearance: lethargic EENT: normal ENT inspection Neck: normal alignment Cardiovascular: normal peripheral pulses, normal rate, regular rhythm Respiratory/Chest: chest wall non-tender, lungs clear, normal breath sounds Abdomen: normal bowel sounds, non tender, soft Extremities: normal inspection Edema: no edema noted Arm (L), no edema noted Arm (R), no edema noted Leg (L), no edema noted Leg (R), no edema noted Pedal (L), no edema noted Pedal (R), no edema noted Generalized Neurologic: motor weakness Skin: normal pigmentation, warm/dry Objective foot dressing sl stained Jarek Gonzalez DO Dec 30, 2018 08:28
--- NOTE | 2018-12-30 09:00 | Progress Note ---
DATE: 12/30/2018 SUBJECTIVE: The patient is a 68-year-old male patient with left ankle ulcer. This patient continues to have some confusion, disorganized thought process, and mood lability, worsened by stress of his medical illness. He does have some . So, he does require inpatient treatment at this time. He does have racing thoughts, pressured speech, and extreme mood lability. That is why he does require inpatient treatment at this time. MENTAL STATUS EXAMINATION: This is a 68-year-old male. Appearance is disheveled. Attitude, irritable and agitated. Affect, guarded and restricted. Intellect poor. Mood depressed and anxious. Motor activity, psychomotor agitation. Attention span is poor. Orientation x2. Speech is low volume and slurred. Thought process, disorganized and illogical. Insight and judgment are poor. DIAGNOSIS: Schizoaffective, bipolar type. PLAN: Continue him on Seroquel 100 mg three times a day, Depakote 500 mg twice a day as a mood stabilizer, and also Haldol 5 mg three times a day . Twenty minutes of cognitive behavioral therapy provided to help him identify his automatic negative thoughts and help him convert those negative thoughts to more positive thoughts to reduce depression, anxiety, and mood lability and help him to have more adaptive behavioral pattern. Chart was reviewed. Discussed with staff. Seen and assessed at bedside. Uziel Collado M.D. DR: MOLINA JOB#: [id number] CC:
[2018-12-30 09:28] LABS: BASOPHILS % (AUTO) 1.2 % (0.0-2.0); EOSINOPHILS % (AUTO) 4.2 % (0.0-3.0); HEMATOCRIT 31.8 % (42.0-52.0); HEMOGLOBIN 10.1 G/DL (14.2-18.0); LYMPHOCYTES % (AUTO) 23.9 % (20.0-45.0); MEAN CORPUSCULAR VOLUME 90 FL (80-99); MONOCYTES % (AUTO) 8.6 % (1.0-10.0); NEUTROPHILS % (AUTO) 62.1 % (45.0-75.0); PLATELET COUNT 251 K/UL (150-450); RED BLOOD COUNT 3.54 M/UL (4.70-6.10); RED CELL DISTRIBUTION WIDTH 14.7 % (11.6-14.8); WHITE BLOOD COUNT 6.2 K/UL (4.8-10.8)
[2018-12-30 09:43] LABS: ANION GAP 10 mmol/L (5-15); BLOOD UREA NITROGEN 32 mg/dL (7-18); CALCIUM 9.4 MG/DL (8.5-10.1); CARBON DIOXIDE 25 MMOL/L (21-32); CHLORIDE 102 MMOL/L (98-107); CREATININE 1.4 MG/DL (0.55-1.30); POTASSIUM 4.5 MMOL/L (3.5-5.1); SODIUM 137 MMOL/L (136-145)
[2018-12-30 12:00] VITALS: BP 123/70
--- NOTE | 2018-12-30 13:14 | Surgery Progress Note ---
Surgery Progress Note Subjective Additional Comments no acute events. stable. comfortable. Objective Last 24 Hour Vital Signs Date Time Temp Pulse Resp B/P (MAP) Pulse Ox O2 Delivery O2 Flow Rate FiO2 12/30/18 12:00 97.5 80 20 98 123/70 (87) 12/30/18 09:00 Room Air Room Air 12/30/18 08:19 108 95/57 12/30/18 08:18 95/57 12/30/18 08:15 97.3 108 18 99 95/57 (70) 12/30/18 04:00 97.3 80 17 122/67 (85) 96 12/30/18 00:00 97.8 67 17 122/60 (80) 99 12/29/18 20:49 Room Air Room Air 12/29/18 20:20 80 18 Room Air 21 12/29/18 20:00 97.2 85 17 116/69 (85) 98 12/29/18 16:00 98.3 77 20 126/62 (83) 96 I&O Intake and Output 12/29/18 12/30/18 19:00 07:00 Intake Total 1160 ml Balance 1160 ml Intake Oral 1160 ml # Voids 8 4 # Bowel Movements 1 Dressing: saturated Wound: other Drains: none Cardiovascular: RSR Respiratory: clear Abdomen: soft, flat, non-tender Extremities: other Laboratory Tests Test 12/30/18 08:25 White Blood Count 6.2 K/UL (4.8-10.8) Red Blood Count 3.54 M/UL (4.70-6.10) L Hemoglobin 10.1 G/DL (14.2-18.0) L Hematocrit 31.8 % (42.0-52.0) L Mean Corpuscular Volume 90 FL (80-99) Mean Corpuscular Hemoglobin 28.5 PG (27.0-31.0) Mean Corpuscular Hemoglobin Concent 31.7 G/DL (32.0-36.0) L Red Cell Distribution Width 14.7 % (11.6-14.8) Platelet Count 251 K/UL (150-450) Mean Platelet Volume 7.1 FL (6.5-10.1) Neutrophils (%) (Auto) 62.1 % (45.0-75.0) Lymphocytes (%) (Auto) 23.9 % (20.0-45.0) Monocytes (%) (Auto) 8.6 % (1.0-10.0) Eosinophils (%) (Auto) 4.2 % (0.0-3.0) H Basophils (%) (Auto) 1.2 % (0.0-2.0) Sodium Level 137 MMOL/L (136-145) Potassium Level 4.5 MMOL/L (3.5-5.1) Chloride Level 102 MMOL/L (98-107) Carbon Dioxide Level 25 MMOL/L (21-32) Anion Gap 10 mmol/L (5-15) Blood Urea Nitrogen 32 mg/dL (7-18) H Creatinine 1.4 MG/DL (0.55-1.30) H Estimat Glomerular Filtration Rate > 60 mL/min (>60) Glucose Level 173 MG/DL (74-106) H Calcium Level 9.4 MG/DL (8.5-10.1) Plan Problems: (1) Ulcer of left ankle Assessment & Plan: large chronic left ankle ulceration near circumferential on left ankle. full thickness with eschar on some areas and some areas of granulation tissue. no drainage. no fluctuance. tender, periwound okay. pulses diminished. calf okay. foot with decreased cap refill. please see photos Plain films noted venous duplex without dvt and patent. labs noted long discussion about wound and leg with patient. states he has no intention of having debridement, grafting, or amputation at anytime. -wash left ankle daily with NS. apply xeroform to wound, ABD, and wrap with kerlix thank you will follow with recs. Devon Sullivan Dec 30, 2018 13:14
[2018-12-30] MEDS: Morphine Sulfate 2mg/ml Inj(IV/IM USE ONLY) IVP PRN (13:15)
--- NOTE | 2018-12-30 15:20 | NUR ---
CASE MANAGEMENT: REVIEW 12/30/2018 SI: Lower extremity infected wound. T 97.5 HR 80 RR 20 B/P 123/70 SATS 98% ON RA BUN 32 CR 1.4 GLU 173 IS: VIBRAMYCIN PO Q12H TRAZADONE PO QHS NORVASC PO QD LOTENSIN PO QD PLAVIX PO QD INSULIN ASPART SUBQ AC/HS DEPAKOTE PO Q12H MED/SURG STATUS DCP: PATIENT TO BE DISCHARGED TO SNF ONCE MEDICALLY CLEARED. PLAN OF CARE: WOUND CARE
[2018-12-30 16:00] VITALS: BP 132/84
--- NOTE | 2018-12-30 16:01 | Pulmonology Progress Note ---
Assessment/Plan Problems: (1) Cellulitis (2) Severe anemia (3) Hypertension (4) UTI (urinary tract infection) (5) Schizoaffective disorder (6) Diabetes (7) History of CVA (cerebrovascular accident) Assessment/Plan no new complains Subjective Allergies: Coded Allergies: THIORIDAZINE (Unverified Allergy, Mild, HIVES, 04/06/15) PENICILLIN (Unverified Allergy, Unknown, 06/15/15) PENICILLINS (Unverified Allergy, Unknown, 11/24/17) Objective Last 24 Hour Vital Signs Date Time Temp Pulse Resp B/P (MAP) Pulse Ox O2 Delivery O2 Flow Rate FiO2 12/30/18 13:45 97.5 12/30/18 12:00 97.5 80 20 98 123/70 (87) 12/30/18 09:00 Room Air Room Air 12/30/18 08:19 108 95/57 12/30/18 08:18 95/57 12/30/18 08:15 97.3 108 18 99 95/57 (70) 12/30/18 04:00 97.3 80 17 122/67 (85) 96 12/30/18 00:00 97.8 67 17 122/60 (80) 99 12/29/18 20:49 Room Air Room Air 12/29/18 20:20 80 18 Room Air 21 12/29/18 20:00 97.2 85 17 116/69 (85) 98 Intake and Output 12/29/18 12/30/18 19:00 07:00 Intake Total 1160 ml Balance 1160 ml Intake Oral 1160 ml # Voids 8 4 # Bowel Movements 1 Objective General Appearance: WD/WN Lines, tubes and drains: peripheral HEENT: normocephalic, atraumatic Neck: non-tender, supple Respiratory/Chest: chest wall non-tender, lungs clear Breasts: no masses Cardiovascular/Chest: normal rate, no JVD Abdomen: normal bowel sounds Genitourinary/Rectal: normal genital exam, heme negative stool Extremities: normal range of motion, non-tender Skin Exam: normal pigmentation Neurologic: counter hop II-XII 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 Laboratory Tests 12/30/18 08:25: White Blood Count 6.2, Red Blood Count 3.54L, Hemoglobin 10.1L, Hematocrit 31.8L , Mean Corpuscular Volume 90, Mean Corpuscular Hemoglobin 28.5, Mean Corpuscular Hemoglobin Concent 31.7L, Red Cell Distribution Width 14.7, Platelet Count 251, Mean Platelet Volume 7.1, Neutrophils (%) (Auto) 62.1, Lymphocytes (%) (Auto) 23.9, Monocytes (%) (Auto) 8.6, Eosinophils (%) (Auto) 4.2H, Basophils (%) (Auto) 1.2, Sodium Level 137, Potassium Level 4.5, Chloride Level 102, Carbon Dioxide Level 25, Anion Gap 10, Blood Urea Nitrogen 32H, Creatinine 1.4H, Estimat Glomerular Filtration Rate > 60, Glucose Level 173H, Calcium Level 9.4 Current Medications Medications (Trade) Dose Ordered Sig/Taco Route PRN Reason Start Time Stop Time Status Last Admin Dose Admin Acetaminophen (Tylenol) 650 mg Q4H PRN ORAL fever 12/26/18 19:30 01/25/19 19:29 Albuterol/ Ipratropium (Albuterol/ Ipratropium) 3 ml Q4H PRN HHN Shortness of Breath 12/26/18 19:30 12/31/18 19:29 Amlodipine Besylate (Norvasc) 10 mg DAILY ORAL 12/27/18 09:00 01/26/19 08:59 12/29/18 08:35 Benazepril HCl (Lotensin) 10 mg DAILY ORAL 12/27/18 09:00 01/26/19 08:59 12/29/18 08:35 Benztropine Mesylate (Cogentin) 1 mg THREE TIMES A DAY ORAL 12/27/18 18:00 01/26/19 17:59 12/30/18 13:10 Clonidine HCl (Catapres Tab) 0.1 mg Q6H PRN ORAL For High Blood Pressure 12/26/18 20:00 01/25/19 19:59 Clopidogrel Bisulfate (Plavix) 75 mg DAILY ORAL 12/27/18 09:00 01/26/19 08:59 12/30/18 08:11 Dextrose (Dextrose 50%) 25 ml Q30M PRN IV Hypoglycemia 12/26/18 19:45 01/25/19 19:33 Dextrose (Dextrose 50%) 50 ml Q30M PRN IV hypoglycemia 12/26/18 19:45 3/29/19 19:44 Divalproex Sodium (Depakote) 250 mg Q12HR ORAL 12/26/18 21:00 01/25/19 20:59 12/30/18 08:10 Doxycycline Monohydrate (Vibramycin) 100 mg EVERY 12 HOURS ORAL 12/28/18 18:00 01/04/19 17:59 12/30/18 08:11 Gabapentin (Neurontin) 300 mg THREE TIMES A DAY ORAL 12/27/18 09:00 01/26/19 08:59 12/30/18 13:11 Haloperidol (Haldol) 5 mg TID ORAL 12/27/18 18:00 01/26/19 17:59 12/30/18 13:10 Heparin Sodium (Porcine) (Heparin 5000 units/ml) 5,000 units EVERY 12 HOURS SUBQ 12/26/18 21:00 01/25/19 20:59 12/30/18 08:13 Insulin Aspart (NovoLOG) BEFORE MEALS AND HS SUBQ 12/26/18 21:00 01/25/19 20:59 12/28/18 17:27 Magnesium Hydroxide (Mom) 30 ml DAILYPRN PRN ORAL Constipation 12/26/18 20:00 01/25/19 19:59 Morphine Sulfate (Morphine Sulfate) 2 mg Q4H PRN IVP Moderate Pain (Pain Scale 4-6) 12/26/18 19:30 01/02/19 19:29 12/30/18 13:15 Nitroglycerin (Ntg) 0.4 mg Q5M PRN SL Prn Chest Pain 12/26/18 19:30 01/25/19 19:29 Ondansetron HCl (Zofran) 4 mg Q6H PRN IVP Nausea & Vomiting 12/26/18 19:30 01/25/19 19:29 12/29/18 09:04 Pantoprazole (Protonix) 40 mg DAILY ORAL 12/27/18 09:00 01/26/19 08:59 12/30/18 08:11 Paroxetine HCl (Paxil) 30 mg DAILY ORAL 12/27/18 09:00 01/26/19 08:59 12/30/18 08:11 Polyethylene Glycol (Miralax) 17 gm DAILYPRN PRN ORAL Constipation 12/26/18 20:00 01/25/19 19:29 Quetiapine Fumarate (SEROquel) 100 mg THREE TIMES A DAY ORAL 12/27/18 09:00 01/26/19 08:59 12/30/18 13:11 Tamsulosin HCl (Flomax) 0.4 mg BEDTIME ORAL 12/26/18 21:00 01/25/19 20:59 12/29/18 20:18 Temazepam (Restoril) 15 mg HSPRN PRN ORAL Insomnia 12/26/18 19:30 01/02/19 19:29 Trazodone HCl (Desyrel) 100 mg BEDTIME ORAL 12/26/18 21:00 01/25/19 20:59 12/29/18 20:18 Vanesa Skinner MD Dec 30, 2018 16:01
[2018-12-30] MEDS ORDERED: NS 275ml ONE (17:43)
[2018-12-30] MEDS ORDERED: Tubing IV Secondary IV ONE (17:43)
--- NOTE | 2018-12-30 19:22 | NUR ---
HAND-OFF: Report given to OLGA Tate.
--- NOTE | 2018-12-30 19:42 | NUR ---
NURSE NOTES: Patient is in bed, awake, alert, periods of confusion. Skin is warm and dry. Noted with lower leg dressing, refused to have dressing change, educated patient, still refused. No complaint of pain or discomfort noted. Respiration is even and unlabored. Call light is at bedside. Will continue plan of care.
[2018-12-30 20:00] VITALS: BP 94/58
[2018-12-30] MEDS: Tamsulosin 0.4mg cap ORAL SCH (20:24)
[2018-12-30] MEDS: TraZODone 100mg tab ORAL SCH (20:24)
--- NOTE | 2018-12-30 20:25 | NUR ---
NURSE NOTES: Patient agreed to dressing change only. Refused PO medication, will ask again. Was able to check blood sugar, result 140. Will educate patient regarding medication regiment. Will come back for patient. Call light is at bedside. Will continue plan of care.
[2018-12-31] VITALS: BP 121/76
[2018-12-31 04:00] VITALS: BP 121/68
[2018-12-31] MEDS: NovoLOG Insulin Flexpen SUBQ SCH ×4 (06:30→20:23)
--- NOTE | 2018-12-31 07:28 | NUR ---
HAND-OFF: Report given to Sharmin Paz.
[2018-12-31 08:00] VITALS: BP 137/73
[2018-12-31 08:43] LABS: BASOPHILS % (AUTO) 1.1 % (0.0-2.0); EOSINOPHILS % (AUTO) 5.2 % (0.0-3.0); HEMATOCRIT 33.9 % (42.0-52.0); HEMOGLOBIN 10.7 G/DL (14.2-18.0); LYMPHOCYTES % (AUTO) 26.3 % (20.0-45.0); MEAN CORPUSCULAR VOLUME 90 FL (80-99); MONOCYTES % (AUTO) 12.9 % (1.0-10.0); NEUTROPHILS % (AUTO) 54.5 % (45.0-75.0); PLATELET COUNT 287 K/UL (150-450); RED BLOOD COUNT 3.78 M/UL (4.70-6.10); RED CELL DISTRIBUTION WIDTH 14.4 % (11.6-14.8); WHITE BLOOD COUNT 6.8 K/UL (4.8-10.8)
[2018-12-31 08:56] LABS: ANION GAP 7 mmol/L (5-15); BLOOD UREA NITROGEN 30 mg/dL (7-18); CARBON DIOXIDE 29 MMOL/L (21-32); CHLORIDE 102 MMOL/L (98-107); CREATININE 1.4 MG/DL (0.55-1.30); POTASSIUM 4.9 MMOL/L (3.5-5.1); SODIUM 138 MMOL/L (136-145)
[2018-12-31] MEDS: Benazepril 10mg tab ORAL SCH (10:04)
[2018-12-31] MEDS: Benztropine 1mg tab ORAL SCH ×3 (10:05→18:00)
[2018-12-31] MEDS: PARoxetine 10mg tab ORAL SCH (10:06)
[2018-12-31] MEDS: Heparin 5000 units/ml inj SUBQ SCH ×2 (10:07→20:26)
[2018-12-31 12:00] VITALS: BP 97/57
--- NOTE | 2018-12-31 13:10 | General Progress Note ---
Assessment/Plan Problem List: (1) History of CVA (cerebrovascular accident) ICD Codes: Z86.73 - Personal history of transient ischemic attack (TIA), and cerebral infarction without residual deficits SNOMED: 588150041 (2) Cellulitis ICD Codes: L03.90 - Cellulitis, unspecified SNOMED: 445731328 (3) Anemia ICD Codes: D64.9 - Anemia SNOMED: 739232872 (4) Diabetes ICD Codes: E11.9 - Diabetes SNOMED: 59314626 (5) Hypertension ICD Codes: I10 - Hypertension SNOMED: 75158647 (6) Failure to thrive in adult ICD Codes: R62.7 - Adult failure to thrive SNOMED: 999501974 (7) Ulcer of left ankle ICD Codes: L97.329 - Non-pressure chronic ulcer of left ankle with unspecified severity SNOMED: 692532427, 66262578 Qualifiers: Qualified Codes: L97.322 - Non-pressure chronic ulcer of left ankle with fat layer exposed Status: stable, progressing Assessment/Plan wound care abx pain control cbc bmp am ltach eval Subjective Constitutional: Reports: weakness Allergies: Coded Allergies: THIORIDAZINE (Unverified Allergy, Mild, HIVES, 04/06/15) PENICILLIN (Unverified Allergy, Unknown, 06/15/15) PENICILLINS (Unverified Allergy, Unknown, 11/24/17) All Systems: reviewed and negative except above Subjective sl foot pain Objective Last 24 Hour Vital Signs Date Time Temp Pulse Resp B/P (MAP) Pulse Ox O2 Delivery O2 Flow Rate FiO2 12/31/18 10:04 137/73 12/31/18 10:03 93 137/73 12/31/18 09:00 Room Air Room Air 12/31/18 08:00 98.1 93 16 100 137/73 (94) 12/31/18 07:00 76 16 Room Air 21 12/31/18 04:00 97.7 80 18 96 121/68 (85) 12/31/18 00:00 98.4 90 18 97 121/76 (91) 12/30/18 21:00 Room Air Room Air 12/30/18 20:28 84 18 Room Air 21 12/30/18 20:00 98.1 92 16 94/58 (70) 98 12/30/18 16:00 98.1 71 20 97 132/84 (100) 12/30/18 13:45 97.5 Intake and Output 12/30/18 12/31/18 18:59 06:59 Intake Total 900 ml 700 ml Output Total 400 ml 350 ml Balance 500 ml 350 ml Intake Oral 500 ml 700 ml Other 400 ml Output Urine Total 400 ml 350 ml # Voids 2 Laboratory Tests 12/31/18 05:18: White Blood Count 6.8, Red Blood Count 3.78L, Hemoglobin 10.7L, Hematocrit 33.9L , Mean Corpuscular Volume 90, Mean Corpuscular Hemoglobin 28.3, Mean Corpuscular Hemoglobin Concent 31.5L, Red Cell Distribution Width 14.4, Platelet Count 287, Mean Platelet Volume 6.6, Neutrophils (%) (Auto) 54.5, Lymphocytes (%) (Auto) 26.3, Monocytes (%) (Auto) 12.9H, Eosinophils (%) (Auto) 5.2H, Basophils (%) (Auto) 1.1, Sodium Level 138, Potassium Level 4.9, Chloride Level 102, Carbon Dioxide Level 29, Anion Gap 7, Blood Urea Nitrogen 30H, Creatinine 1.4H, Estimat Glomerular Filtration Rate > 60, Glucose Level 72#L, Calcium Level 10.0 Height (Feet): 5 Height (Inches): 10.00 Weight (Pounds): 174 General Appearance: alert EENT: normal ENT inspection Neck: normal alignment Cardiovascular: normal peripheral pulses, normal rate, regular rhythm Respiratory/Chest: chest wall non-tender, lungs clear, normal breath sounds Abdomen: normal bowel sounds, non tender, soft Extremities: normal inspection Edema: no edema noted Arm (L), no edema noted Arm (R), no edema noted Leg (L), no edema noted Leg (R), no edema noted Pedal (L), no edema noted Pedal (R), no edema noted Generalized Neurologic: responsive, motor weakness Skin: normal pigmentation, warm/dry Objective foot dressing c&d Jarek Gonzalez DO Dec 31, 2018 13:10
--- NOTE | 2018-12-31 14:22 | Pulmonology Progress Note ---
Assessment/Plan Problems: (1) Cellulitis (2) Severe anemia (3) Hypertension (4) UTI (urinary tract infection) (5) Schizoaffective disorder (6) Diabetes (7) History of CVA (cerebrovascular accident) Assessment/Plan in better spirit wound care IV abx check cultures iv fluids symptomatic treatment respiratory treatment dvt prophylaxis. Subjective Allergies: Coded Allergies: THIORIDAZINE (Unverified Allergy, Mild, HIVES, 04/06/15) PENICILLIN (Unverified Allergy, Unknown, 06/15/15) PENICILLINS (Unverified Allergy, Unknown, 11/24/17) Objective Last 24 Hour Vital Signs Date Time Temp Pulse Resp B/P (MAP) Pulse Ox O2 Delivery O2 Flow Rate FiO2 12/31/18 10:04 137/73 12/31/18 10:03 93 137/73 12/31/18 09:00 Room Air Room Air 12/31/18 08:00 98.1 93 16 100 137/73 (94) 12/31/18 07:00 76 16 Room Air 12/31/18 04:00 97.7 80 18 96 121/68 (85) 12/31/18 00:00 98.4 90 18 97 121/76 (91) 12/30/18 21:00 Room Air Room Air 12/30/18 20:28 84 18 Room Air 21 12/30/18 20:00 98.1 92 16 94/58 (70) 98 12/30/18 16:00 98.1 71 20 97 132/84 (100) Intake and Output 12/30/18 12/31/18 18:59 06:59 Intake Total 900 ml 700 ml Output Total 400 ml 350 ml Balance 500 ml 350 ml Intake Oral 500 ml 700 ml Other 400 ml Output Urine Total 400 ml 350 ml # Voids 2 Objective General Appearance: WD/WN Lines, tubes and drains: peripheral HEENT: normocephalic, atraumatic Neck: non-tender, supple Respiratory/Chest: chest wall non-tender, lungs clear Breasts: no masses Cardiovascular/Chest: normal rate, no JVD Abdomen: normal bowel sounds Genitourinary/Rectal: normal genital exam, heme negative stool Extremities: normal range of motion, non-tender Skin Exam: normal pigmentation 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: 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4H, Estimat Glomerular Filtration Rate > 60, Glucose Level 72#L, Calcium Level 10.0 Current Medications Medications (Trade) Dose Ordered Sig/Taco Route PRN Reason Start Time Stop Time Status Last Admin Dose Admin Acetaminophen (Tylenol) 650 mg Q4H PRN ORAL fever 12/26/18 19:30 01/25/19 19:29 Albuterol/ Ipratropium (Albuterol/ Ipratropium) 3 ml Q4H PRN HHN Shortness of Breath 12/26/18 19:30 12/31/18 19:29 Amlodipine Besylate (Norvasc) 10 mg DAILY ORAL 12/27/18 09:00 01/26/19 08:59 12/31/18 10:03 Benazepril HCl (Lotensin) 10 mg DAILY ORAL 12/27/18 09:00 01/26/19 08:59 12/31/18 10:04 Benztropine Mesylate (Cogentin) 1 mg THREE TIMES A DAY ORAL 12/27/18 18:00 01/26/19 17:59 12/31/18 12:59 Clonidine HCl (Catapres Tab) 0.1 mg Q6H PRN ORAL For High Blood Pressure 12/26/18 20:00 01/25/19 19:59 Clopidogrel Bisulfate (Plavix) 75 mg DAILY ORAL 12/27/18 09:00 01/26/19 08:59 12/31/18 10:05 Dextrose (Dextrose 50%) 25 ml Q30M PRN IV Hypoglycemia 12/26/18 19:45 01/25/19 19:33 Dextrose (Dextrose 50%) 50 ml Q30M PRN IV hypoglycemia 12/26/18 19:45 01/25/19 19:44 Divalproex Sodium (Depakote) 250 mg Q12HR ORAL 12/26/18 21:00 01/25/19 20:59 12/31/18 10:05 Doxycycline Monohydrate (Vibramycin) 100 mg EVERY 12 HOURS ORAL 12/28/18 18:00 01/04/19 17:59 12/31/18 10:03 Gabapentin (Neurontin) 300 mg THREE TIMES A DAY ORAL 12/27/18 09:00 01/26/19 08:59 12/31/18 12:59 Haloperidol (Haldol) 5 mg TID ORAL 12/27/18 18:00 01/26/19 17:59 12/31/18 12:59 Heparin Sodium (Porcine) (Heparin 5000 units/ml) 5,000 units EVERY 12 HOURS SUBQ 12/26/18 21:00 01/25/19 20:59 12/31/18 10:07 Insulin Aspart (NovoLOG) BEFORE MEALS AND HS SUBQ 12/26/18 21:00 01/25/19 20:59 12/31/18 13:01 Magnesium Hydroxide (Mom) 30 ml DAILYPRN PRN ORAL Constipation 12/26/18 20:00 01/25/19 19:59 Morphine Sulfate (Morphine Sulfate) 2 mg Q4H PRN IVP Moderate Pain (Pain Scale 4-6) 12/26/18 19:30 01/02/19 19:29 12/30/18 13:15 Nitroglycerin (Ntg) 0.4 mg Q5M PRN SL Prn Chest Pain 12/26/18 19:30 01/25/19 19:29 Ondansetron HCl (Zofran) 4 mg Q6H PRN IVP Nausea & Vomiting 12/26/18 19:30 01/25/19 19:29 12/29/18 09:04 Pantoprazole (Protonix) 40 mg DAILY ORAL 12/27/18 09:00 01/26/19 08:59 12/31/18 10:05 Paroxetine HCl (Paxil) 30 mg DAILY ORAL 12/27/18 09:00 01/26/19 08:59 12/31/18 10:06 Polyethylene Glycol (Miralax) 17 gm DAILYPRN PRN ORAL Constipation 12/26/18 20:00 01/25/19 19:29 Quetiapine Fumarate (SEROquel) 100 mg THREE TIMES A DAY ORAL 12/27/18 09:00 01/26/19 08:59 12/31/18 12:59 Tamsulosin HCl (Flomax) 0.4 mg BEDTIME ORAL 12/26/18 21:00 01/25/19 20:59 12/29/18 20:18 Temazepam (Restoril) 15 mg HSPRN PRN ORAL Insomnia 12/26/18 19:30 01/02/19 19:29 Trazodone HCl (Desyrel) 100 mg BEDTIME ORAL 12/26/18 21:00 01/25/19 20:59 12/29/18 20:18 Vanesa Skinner MD Dec 31, 2018 14:22
--- NOTE | 2018-12-31 15:20 | Infectious Diseases Prog Note ---
Assessment/Plan Assessment/Plan Assessment: L ankle ulcer- mild gavin wound cellulitis;ulcer itself not infected Wnd : Morg. M , StrpGrpG, cantor S PsA( colonizers ) -Xray ankle: No definite acute bony process. Possible lateral soft tissue irregularity-correlate with clinical findings Afebrile Mild leukocytosis; SP DM2 HTN COPD SNF resident Plan: - PO Doxy d# 4 (abx /) IV Vancomycin #3 12/28 -s/p IV Vancomycin x1 12/26 -f/u cx -Monitor CBC/CMP, temperatures -wound care Subjective Allergies: Coded Allergies: THIORIDAZINE (Unverified Allergy, Mild, HIVES, 04/06/15) PENICILLIN (Unverified Allergy, Unknown, 06/15/15) PENICILLINS (Unverified Allergy, Unknown, 11/24/17) Subjective afebrile no leukocytosis Objective Vital Signs Last 24 Hour Vital Signs Date Time Temp Pulse Resp B/P (MAP) Pulse Ox O2 Delivery O2 Flow Rate FiO2 12/31/18 10:04 137/73 12/31/18 10:03 93 137/73 12/31/18 09:00 Room Air Room Air 12/31/18 08:00 98.1 93 16 100 137/73 (94) 12/31/18 07:00 76 16 Room Air 21 12/31/18 04:00 97.7 80 18 96 121/68 (85) 12/31/18 00:00 98.4 90 18 97 121/76 (91) 12/30/18 21:00 Room Air Room Air 12/30/18 20:28 84 18 Room Air 21 12/30/18 20:00 98.1 92 16 94/58 (70) 98 12/30/18 16:00 98.1 71 20 97 132/84 (100) Height (Feet): 5 Height (Inches): 10.00 Weight (Pounds): 174 Objective General Appearance: no apparent distress, alert, non-toxic HEENT: normocephalic, atraumatic bilateral eye PERRL, normal pharynx Neck: full range of motion, supple/symm/no masses Respiratory: chest non-tender, lungs clear, normal breath sounds, speaking full sentences Cardiovascular : regular rate, rhythm, no edema Gastrointestinal: normal bowel sounds, non tender, soft, non-distended, no guarding, no rebound Genitourinary: normal inspection, no CVA tenderness Musculoskeletal: back normal, gait/station normal, normal range of motion, non- tender Neurologic: alert, oriented x3, responsive, motor strength/tone normal, sensory intact, speech normal Psychiatric: judgement/insight normal, memory normal, mood/affect normal, no suicidal/homicidal ideation Skin: other - large ulcer to L ankle. surrounding erythema/induration Laboratory Tests Test 12/31/18 05:18 White Blood Count 6.8 K/UL (4.8-10.8) Red Blood Count 3.78 M/UL (4.70-6.10) L Hemoglobin 10.7 G/DL (14.2-18.0) L Hematocrit 33.9 % (42.0-52.0) L Mean Corpuscular Volume 90 FL (80-99) Mean Corpuscular Hemoglobin 28.3 PG (27.0-31.0) Mean Corpuscular Hemoglobin Concent 31.5 G/DL (32.0-36.0) L Red Cell Distribution Width 14.4 % (11.6-14.8) Platelet Count 287 K/UL (150-450) Mean Platelet Volume 6.6 FL (6.5-10.1) Neutrophils (%) (Auto) 54.5 % (45.0-75.0) Lymphocytes (%) (Auto) 26.3 % (20.0-45.0) Monocytes (%) (Auto) 12.9 % (1.0-10.0) H Eosinophils (%) (Auto) 5.2 % (0.0-3.0) H Basophils (%) (Auto) 1.1 % (0.0-2.0) Sodium Level 138 MMOL/L (136-145) Potassium Level 4.9 MMOL/L (3.5-5.1) Chloride Level 102 MMOL/L (98-107) Carbon Dioxide Level 29 MMOL/L (21-32) Anion Gap 7 mmol/L (5-15) Blood Urea Nitrogen 30 mg/dL (7-18) H Creatinine 1.4 MG/DL (0.55-1.30) H Estimat Glomerular Filtration Rate > 60 mL/min (>60) Glucose Level 72 MG/DL (74-106) #L Calcium Level 10.0 MG/DL (8.5-10.1) Current Medications Medications (Trade) Dose Ordered Sig/Taco Route PRN Reason Start Time Stop Time Status Last Admin Dose Admin Acetaminophen (Tylenol) 650 mg Q4H PRN ORAL fever 12/26/18 19:30 01/25/19 19:29 Albuterol/ Ipratropium (Albuterol/ Ipratropium) 3 ml Q4H PRN HHN Shortness of Breath 12/26/18 19:30 12/31/18 19:29 Amlodipine Besylate (Norvasc) 10 mg DAILY ORAL 12/27/18 09:00 01/26/19 08:59 12/31/18 10:03 Benazepril HCl (Lotensin) 10 mg DAILY ORAL 12/27/18 09:00 01/26/19 08:59 12/31/18 10:04 Benztropine Mesylate (Cogentin) 1 mg THREE TIMES A DAY ORAL 12/27/18 18:00 01/26/19 17:59 12/31/18 12:59 Clonidine HCl (Catapres Tab) 0.1 mg Q6H PRN ORAL For High Blood Pressure 12/26/18 20:00 01/25/19 19:59 Clopidogrel Bisulfate (Plavix) 75 mg DAILY ORAL 12/27/18 09:00 01/26/19 08:59 12/31/18 10:05 Dextrose (Dextrose 50%) 25 ml Q30M PRN IV Hypoglycemia 12/26/18 19:45 01/25/19 19:33 Dextrose (Dextrose 50%) 50 ml Q30M PRN IV hypoglycemia 12/26/18 19:45 01/25/19 19:44 Divalproex Sodium (Depakote) 250 mg Q12HR ORAL 12/26/18 21:00 01/25/19 20:59 12/31/18 10:05 Doxycycline Monohydrate (Vibramycin) 100 mg EVERY 12 HOURS ORAL 12/28/18 18:00 01/04/19 17:59 12/31/18 10:03 Gabapentin (Neurontin) 300 mg THREE TIMES A DAY ORAL 12/27/18 09:00 01/26/19 08:59 12/31/18 12:59 Haloperidol (Haldol) 5 mg TID ORAL 12/27/18 18:00 01/26/19 17:59 12/31/18 12:59 Heparin Sodium (Porcine) (Heparin 5000 units/ml) 5,000 units EVERY 12 HOURS SUBQ 12/26/18 21:00 01/25/19 20:59 12/31/18 10:07 Insulin Aspart (NovoLOG) BEFORE MEALS AND HS SUBQ 12/26/18 21:00 01/25/19 20:59 12/31/18 13:01 Magnesium Hydroxide (Mom) 30 ml DAILYPRN PRN ORAL Constipation 12/26/18 20:00 01/25/19 19:59 Morphine Sulfate (Morphine Sulfate) 2 mg Q4H PRN IVP Moderate Pain (Pain Scale 4-6) 12/26/18 19:30 01/02/19 19:29 12/30/18 13:15 Nitroglycerin (Ntg) 0.4 mg Q5M PRN SL Prn Chest Pain 12/26/18 19:30 01/25/19 19:29 Ondansetron HCl (Zofran) 4 mg Q6H PRN IVP Nausea & Vomiting 12/26/18 19:30 01/25/19 19:29 12/29/18 09:04 Pantoprazole (Protonix) 40 mg DAILY ORAL 12/27/18 09:00 01/26/19 08:59 12/31/18 10:05 Paroxetine HCl (Paxil) 30 mg DAILY ORAL 12/27/18 09:00 01/26/19 08:59 12/31/18 10:06 Polyethylene Glycol (Miralax) 17 gm DAILYPRN PRN ORAL Constipation 12/26/18 20:00 01/25/19 19:29 Quetiapine Fumarate (SEROquel) 100 mg THREE TIMES A DAY ORAL 12/27/18 09:00 01/26/19 08:59 12/31/18 12:59 Tamsulosin HCl (Flomax) 0.4 mg BEDTIME ORAL 12/26/18 21:00 01/25/19 20:59 12/29/18 20:18 Temazepam (Restoril) 15 mg HSPRN PRN ORAL Insomnia 12/26/18 19:30 01/02/19 19:29 Trazodone HCl (Desyrel) 100 mg BEDTIME ORAL 12/26/18 21:00 01/25/19 20:59 12/29/18 20:18 Mireya Campso M.D. Dec 31, 2018 15:20
--- NOTE | 2018-12-31 15:42 | Surgery Progress Note ---
Surgery Progress Note Subjective Additional Comments no acute events. stable. will now allow wound to be cleaned properly. will only allow for dressing to be changed. Objective Last 24 Hour Vital Signs Date Time Temp Pulse Resp B/P (MAP) Pulse Ox O2 Delivery O2 Flow Rate FiO2 12/31/18 10:04 137/73 12/31/18 10:03 93 137/73 12/31/18 09:00 Room Air Room Air 12/31/18 08:00 98.1 93 16 100 137/73 (94) 12/31/18 07:00 76 16 Room Air 21 12/31/18 04:00 97.7 80 18 96 121/68 (85) 12/31/18 00:00 98.4 90 18 97 121/76 (91) 12/30/18 21:00 Room Air Room Air 12/30/18 20:28 84 18 Room Air 21 12/30/18 20:00 98.1 92 16 94/58 (70) 98 12/30/18 16:00 98.1 71 20 97 132/84 (100) I&O Intake and Output 12/30/18 12/31/18 19:00 07:00 Intake Total 900 ml 700 ml Output Total 400 ml 350 ml Balance 500 ml 350 ml Intake Oral 500 ml 700 ml Other 400 ml Output Urine Total 400 ml 350 ml # Voids 2 Dressing: saturated, other Wound: other Drains: none Cardiovascular: RSR Respiratory: clear Abdomen: soft, non-tender, non-distended Extremities: cyanosis, no edema Laboratory Tests Test 12/31/18 05:18 White Blood Count 6.8 K/UL (4.8-10.8) Red Blood Count 3.78 M/UL (4.70-6.10) L Hemoglobin 10.7 G/DL (14.2-18.0) L Hematocrit 33.9 % (42.0-52.0) L Mean Corpuscular Volume 90 FL (80-99) Mean Corpuscular Hemoglobin 28.3 PG (27.0-31.0) Mean Corpuscular Hemoglobin Concent 31.5 G/DL (32.0-36.0) L Red Cell Distribution Width 14.4 % (11.6-14.8) Platelet Count 287 K/UL (150-450) Mean Platelet Volume 6.6 FL (6.5-10.1) Neutrophils (%) (Auto) 54.5 % (45.0-75.0) Lymphocytes (%) (Auto) 26.3 % (20.0-45.0) Monocytes (%) (Auto) 12.9 % (1.0-10.0) H Eosinophils (%) (Auto) 5.2 % (0.0-3.0) H Basophils (%) (Auto) 1.1 % (0.0-2.0) Sodium Level 138 MMOL/L (136-145) Potassium Level 4.9 MMOL/L (3.5-5.1) Chloride Level 102 MMOL/L (98-107) Carbon Dioxide Level 29 MMOL/L (21-32) Anion Gap 7 mmol/L (5-15) Blood Urea Nitrogen 30 mg/dL (7-18) H Creatinine 1.4 MG/DL (0.55-1.30) H Estimat Glomerular Filtration Rate > 60 mL/min (>60) Glucose Level 72 MG/DL (74-106) #L Calcium Level 10.0 MG/DL (8.5-10.1) Plan Problems: (1) Ulcer of left ankle Assessment & Plan: large chronic left ankle ulceration near circumferential on left ankle. full thickness with eschar on some areas and some areas of granulation tissue. no drainage. no fluctuance. tender, periwound okay. pulses diminished. calf okay. foot with decreased cap refill. please see photos Plain films noted venous duplex without dvt and patent. labs noted long discussion about wound and leg with patient. states he has no intention of having debridement, grafting, or amputation at anytime. will now allow wound to be cleaned properly. will only allow for dressing to be changed. -wash left ankle daily with NS. apply xeroform to wound, ABD, and wrap with kerlix thank you will follow with recs. Devon Sullivan Dec 31, 2018 15:42
--- NOTE | 2018-12-31 15:45 | Progress Note ---
DATE: 12/31/2018 SUBJECTIVE: This is a 68-year-old male patient, who has left ulcer. He is very confused, disorganized, and mood labile. He is hyperverbal. DIAGNOSIS: Schizoaffective, bipolar type. PLAN: Treat him with Haldol 5 mg three times a day, Depakote 500 twice a day, Seroquel 100 mg three times a day. Provided him with 20 minutes of cognitive behavioral therapy to help him identify his automatic negative thoughts and help him convert those negative thoughts to more positive thoughts to reduce depression, anxiety, and mood lability. A 20 minutes of cognitive behavioral therapy provided. Uziel Collado M.D. DR: MOLINA JOB#: [id number] CC:
[2018-12-31 16:00] VITALS: BP 103/57
--- NOTE | 2018-12-31 19:00 | NUR ---
HAND-OFF: Report given to OLGA Obrien.
--- NOTE | 2018-12-31 19:30 | NUR ---
NURSE NOTES: Patient asleep in bed, not in acute respiratory distress. Call light and needs in reach. Bed in lowest position, lock engaged and alarm on. Will continue to monitor.
[2018-12-31 20:00] VITALS: BP 102/68
[2018-12-31] MEDS: Tamsulosin 0.4mg cap ORAL SCH (20:21)
[2018-12-31] MEDS: TraZODone 100mg tab ORAL SCH (20:21)
[2019-01-01] VITALS: BP 99/54
[2019-01-01] MEDS: Morphine Sulfate 2mg/ml Inj(IV/IM USE ONLY) IVP PRN (06:08)
[2019-01-01] MEDS: NovoLOG Insulin Flexpen SUBQ SCH ×4 (06:13→21:20)
[2019-01-01 06:54] LABS: ANION GAP 7 mmol/L (5-15); BLOOD UREA NITROGEN 38 mg/dL (7-18); CALCIUM 9.9 MG/DL (8.5-10.1); CARBON DIOXIDE 28 MMOL/L (21-32); CHLORIDE 105 MMOL/L (98-107); CREATININE 1.4 MG/DL (0.55-1.30); POTASSIUM 4.6 MMOL/L (3.5-5.1); SODIUM 140 MMOL/L (136-145)
[2019-01-01 07:02] LABS: BASOPHILS % (AUTO) 1.2 % (0.0-2.0); EOSINOPHILS % (AUTO) 4.5 % (0.0-3.0); HEMATOCRIT 34.9 % (42.0-52.0); LYMPHOCYTES % (AUTO) 22.1 % (20.0-45.0); MEAN CORPUSCULAR VOLUME 90 FL (80-99); MONOCYTES % (AUTO) 9.7 % (1.0-10.0); NEUTROPHILS % (AUTO) 62.4 % (45.0-75.0); PLATELET COUNT 277 K/UL (150-450); RED BLOOD COUNT 3.88 M/UL (4.70-6.10); RED CELL DISTRIBUTION WIDTH 14.3 % (11.6-14.8); WHITE BLOOD COUNT 7.4 K/UL (4.8-10.8)
--- NOTE | 2019-01-01 07:30 | NUR ---
NURSE NOTES: Patient is in bed awake and stable. No s/s acute distress. Patient denies pain at this time. Patient is able to follow commands. Patient encouraged to use call light for assistance, patient verbalized understanding. Patient is in good spirits and comfortable in bed in lowest and locked position and call light within reach. WIll continue to monitor.
--- NOTE | 2019-01-01 07:38 | NUR ---
HAND-OFF: Report given to OLGA Macario.
[2019-01-01 08:00] VITALS: BP 102/53
[2019-01-01] MEDS: Benztropine 1mg tab ORAL SCH ×3 (09:08→18:14)
[2019-01-01] MEDS: PARoxetine 10mg tab ORAL SCH (09:09)
[2019-01-01] MEDS: Benazepril 10mg tab ORAL SCH (09:09)
[2019-01-01] MEDS: Heparin 5000 units/ml inj SUBQ SCH ×2 (09:11→21:20)
[2019-01-01 12:00] VITALS: BP 98/51
--- NOTE | 2019-01-01 12:00 | NUR ---
NURSE NOTES: Patient did not allow RN to change dressing. patient was informed of the benefits of changing the dressing, patient continued to refuse. will try again later.
--- NOTE | 2019-01-01 12:14 | NUR ---
RD ASSESSMENT & RECOMMENDATIONS SEE CARE ACTIVITY FOR COMPLETE ASSESSMENT DAILY ESTIMATED NEEDS: Needs based on wounds, DM 70.5kg 25-35 kcals/kg 0231-1573 total kcals 1.25-1.5 g protein/kg 88-106 g total protein 25-30 mL/kg 3210-0716 total fluid mLs NUTRITION DIAGNOSIS: 1) Increased protein needs r/t wound healing as evidenced by pt with L-ankle full thickness ulcer CURRENT DIET:[facility] MED PO DIET RECOMMENDATIONS: [facility] MED/ DOUBLE PROTEIN PORTIONS (texture as tolerated) ADDITIONAL RECOMMENDATIONS: 1) calibrated bed scale wts (Per SNF: 155#) 2) WOUND CARE: add YUNI BID + VIT C 500mg BID + MVI x1 3) Monitor po intake -> pt on multiple psych meds, may alter appetite 4) Add HS snack to prevent hypoglycemia in the AM.
--- NOTE | 2019-01-01 12:20 | Infectious Diseases Prog Note ---
Assessment/Plan Assessment/Plan Assessment: L ankle ulcer- mild gavin wound cellulitis;ulcer itself not infected Wnd : Morg. M , [facility], [facility] S [facility]( colonizers ) -Xray ankle: No definite acute bony process. Possible lateral soft tissue irregularity-correlate with clinical findings -Bcx neg Afebrile Mild leukocytosis; SP DM2 HTN COPD SNF resident Plan: - Continue PO Doxy d# 5 (abx 04/05) IV Vancomycin #3 12/28 -s/p IV Vancomycin x1 12/26 -f/u cx -Monitor CBC/CMP, temperatures -wound care Subjective Allergies: Coded Allergies: THIORIDAZINE (Unverified Allergy, Mild, HIVES, 04/06/15) PENICILLIN (Unverified Allergy, Unknown, 06/15/15) PENICILLINS (Unverified Allergy, Unknown, 11/24/17) Subjective afebrile no leukocytosis Objective Vital Signs Last 24 Hour Vital Signs Date Time Temp Pulse Resp B/P (MAP) Pulse Ox O2 Delivery O2 Flow Rate FiO2 01/01/19 09:43 79 18 Room Air 21 01/01/19 09:09 132/70 01/01/19 09:09 81 132/70 01/01/19 09:00 Room Air Room Air 01/01/19 08:00 96.8 51 18 99 102/53 (69) 01/01/19 00:00 97.7 70 16 98 99/54 (69) 12/31/18 21:00 Room Air Room Air 12/31/18 20:44 83 18 Room Air 21 12/31/18 20:00 98.0 83 17 98 102/68 (79) 12/31/18 16:00 98.1 90 20 99 103/57 (72) Height (Feet): 5 Height (Inches): 10.00 Weight (Pounds): 174 Objective General Appearance: no apparent distress, alert, non-toxic HEENT: normocephalic, atraumatic bilateral eye PERRL, normal pharynx Neck: full range of motion, supple/symm/no masses Respiratory: chest non-tender, lungs clear, normal breath sounds, speaking full sentences Cardiovascular : regular rate, rhythm, no edema Gastrointestinal: normal bowel sounds, non tender, soft, non-distended, no guarding, no rebound Genitourinary: normal inspection, no CVA tenderness Musculoskeletal: back normal, gait/station normal, normal range of motion, non- tender Neurologic: alert, oriented x3, responsive, motor strength/tone normal, sensory intact, speech normal Psychiatric: judgement/insight normal, memory normal, mood/affect normal, no suicidal/homicidal ideation Skin: other - large ulcer to L ankle. surrounding erythema/induration Laboratory Tests Test 01/01/19 06:25 White Blood Count 7.4 K/UL (4.8-10.8) Red Blood Count 3.88 M/UL (4.70-6.10) L Hemoglobin 11.0 G/DL (14.2-18.0) L Hematocrit 34.9 % (42.0-52.0) L Mean Corpuscular Volume 90 FL (80-99) Mean Corpuscular Hemoglobin 28.4 PG (27.0-31.0) Mean Corpuscular Hemoglobin Concent 31.6 G/DL (32.0-36.0) L Red Cell Distribution Width 14.3 % (11.6-14.8) Platelet Count 277 K/UL (150-450) Mean Platelet Volume 7.3 FL (6.5-10.1) Neutrophils (%) (Auto) 62.4 % (45.0-75.0) Lymphocytes (%) (Auto) 22.1 % (20.0-45.0) Monocytes (%) (Auto) 9.7 % (1.0-10.0) Eosinophils (%) (Auto) 4.5 % (0.0-3.0) H Basophils (%) (Auto) 1.2 % (0.0-2.0) Sodium Level 140 MMOL/L (136-145) Potassium Level 4.6 MMOL/L (3.5-5.1) Chloride Level 105 MMOL/L (98-107) Carbon Dioxide Level 28 MMOL/L (21-32) Anion Gap 7 mmol/L (5-15) Blood Urea Nitrogen 38 mg/dL (7-18) H Creatinine 1.4 MG/DL (0.55-1.30) H Estimat Glomerular Filtration Rate > 60 mL/min (>60) Glucose Level 121 MG/DL (74-106) H Calcium Level 9.9 MG/DL (8.5-10.1) Current Medications Medications (Trade) Dose Ordered Sig/Taco Route PRN Reason Start Time Stop Time Status Last Admin Dose Admin Acetaminophen (Tylenol) 650 mg Q4H PRN ORAL fever 12/26/18 19:30 01/25/19 19:29 Amlodipine Besylate (Norvasc) 10 mg DAILY ORAL 12/27/18 09:00 01/26/19 08:59 01/01/19 09:09 Benazepril HCl (Lotensin) 10 mg DAILY ORAL 12/27/18 09:00 01/26/19 08:59 01/01/19 09:09 Benztropine Mesylate (Cogentin) 1 mg THREE TIMES A DAY ORAL 12/27/18 18:00 01/26/19 17:59 01/01/19 09:08 Clonidine HCl (Catapres Tab) 0.1 mg Q6H PRN ORAL For High Blood Pressure 12/26/18 20:00 01/25/19 19:59 Clopidogrel Bisulfate (Plavix) 75 mg DAILY ORAL 12/27/18 09:00 01/26/19 08:59 01/01/19 09:09 Dextrose (Dextrose 50%) 25 ml Q30M PRN IV Hypoglycemia 12/26/18 19:45 01/25/19 19:33 Dextrose (Dextrose 50%) 50 ml Q30M PRN IV hypoglycemia 12/26/18 19:45 01/25/19 19:44 Divalproex Sodium (Depakote) 250 mg Q12HR ORAL 12/26/18 21:00 01/25/19 20:59 01/01/19 09:08 Doxycycline Monohydrate (Vibramycin) 100 mg EVERY 12 HOURS ORAL 12/28/18 18:00 01/04/19 17:59 01/01/19 09:09 Gabapentin (Neurontin) 300 mg THREE TIMES A DAY ORAL 12/27/18 09:00 01/26/19 08:59 01/01/19 09:09 Haloperidol (Haldol) 5 mg TID ORAL 12/27/18 18:00 01/26/19 17:59 01/01/19 09:08 Heparin Sodium (Porcine) (Heparin 5000 units/ml) 5,000 units EVERY 12 HOURS SUBQ 12/26/18 21:00 01/25/19 20:59 01/01/19 09:11 Insulin Aspart (NovoLOG) BEFORE MEALS AND HS SUBQ 12/26/18 21:00 01/25/19 20:59 01/01/19 06:13 Magnesium Hydroxide (Mom) 30 ml DAILYPRN PRN ORAL Constipation 12/26/18 20:00 01/25/19 19:59 Morphine Sulfate (Morphine Sulfate) 2 mg Q4H PRN IVP Moderate Pain (Pain Scale 4-6) 12/26/18 19:30 01/02/19 19:29 01/01/19 06:08 Nitroglycerin (Ntg) 0.4 mg Q5M PRN SL Prn Chest Pain 12/26/18 19:30 01/25/19 19:29 Ondansetron HCl (Zofran) 4 mg Q6H PRN IVP Nausea & Vomiting 12/26/18 19:30 01/25/19 19:29 12/29/18 09:04 Pantoprazole (Protonix) 40 mg DAILY ORAL 12/27/18 09:00 01/26/19 08:59 01/01/19 09:09 Paroxetine HCl (Paxil) 30 mg DAILY ORAL 12/27/18 09:00 01/26/19 08:59 01/01/19 09:09 Polyethylene Glycol (Miralax) 17 gm DAILYPRN PRN ORAL Constipation 12/26/18 20:00 01/25/19 19:29 Quetiapine Fumarate (SEROquel) 100 mg THREE TIMES A DAY ORAL 12/27/18 09:00 01/26/19 08:59 01/01/19 09:09 Tamsulosin HCl (Flomax) 0.4 mg BEDTIME ORAL 12/26/18 21:00 01/25/19 20:59 12/31/18 20:21 Temazepam (Restoril) 15 mg HSPRN PRN ORAL Insomnia 12/26/18 19:30 01/02/19 19:29 Trazodone HCl (Desyrel) 100 mg BEDTIME ORAL 12/26/18 21:00 01/25/19 20:59 12/31/18 20:21 Mireya Campos M.D. Jan 01, 2019 12:20
--- NOTE | 2019-01-01 12:40 | Surgery Progress Note ---
Surgery Progress Note Subjective Symptoms: improved, tolerating diet, passing flatus Objective Last 24 Hour Vital Signs Date Time Temp Pulse Resp B/P (MAP) Pulse Ox O2 Delivery O2 Flow Rate FiO2 01/01/19 09:43 79 18 Room Air 21 01/01/19 09:09 132/70 01/01/19 09:09 81 132/70 01/01/19 09:00 Room Air Room Air 01/01/19 08:00 96.8 51 18 99 102/53 (69) 01/01/19 00:00 97.7 70 16 98 99/54 (69) 12/31/18 21:00 Room Air Room Air 12/31/18 20:44 83 18 Room Air 21 12/31/18 20:00 98.0 83 17 98 102/68 (79) 12/31/18 16:00 98.1 90 20 99 103/57 (72) I&O Intake and Output 12/31/18 01/01/19 19:00 07:00 Intake Total 600 ml 200 ml Output Total 1000 ml Balance -400 ml 200 ml Intake Oral 600 ml 200 ml Output Urine Total 1000 ml # Voids 3 Dressing: saturated Wound: other Drains: none Cardiovascular: RSR Respiratory: clear Abdomen: soft, flat, non-tender, non-distended Extremities: no cyanosis Laboratory Tests Test 01/01/19 06:25 White Blood Count 7.4 K/UL (4.8-10.8) Red Blood Count 3.88 M/UL (4.70-6.10) L Hemoglobin 11.0 G/DL (14.2-18.0) L Hematocrit 34.9 % (42.0-52.0) L Mean Corpuscular Volume 90 FL (80-99) Mean Corpuscular Hemoglobin 28.4 PG (27.0-31.0) Mean Corpuscular Hemoglobin Concent 31.6 G/DL (32.0-36.0) L Red Cell Distribution Width 14.3 % (11.6-14.8) Platelet Count 277 K/UL (150-450) Mean Platelet Volume 7.3 FL (6.5-10.1) Neutrophils (%) (Auto) 62.4 % (45.0-75.0) Lymphocytes (%) (Auto) 22.1 % (20.0-45.0) Monocytes (%) (Auto) 9.7 % (1.0-10.0) Eosinophils (%) (Auto) 4.5 % (0.0-3.0) H Basophils (%) (Auto) 1.2 % (0.0-2.0) Sodium Level 140 MMOL/L (136-145) Potassium Level 4.6 MMOL/L (3.5-5.1) Chloride Level 105 MMOL/L (98-107) Carbon Dioxide Level 28 MMOL/L (21-32) Anion Gap 7 mmol/L (5-15) Blood Urea Nitrogen 38 mg/dL (7-18) H Creatinine 1.4 MG/DL (0.55-1.30) H Estimat Glomerular Filtration Rate > 60 mL/min (>60) Glucose Level 121 MG/DL (74-106) H Calcium Level 9.9 MG/DL (8.5-10.1) Plan Problems: (1) Ulcer of left ankle Assessment & Plan: large chronic left ankle ulceration near circumferential on left ankle. full thickness with eschar on some areas and some areas of granulation tissue. no drainage. no fluctuance. tender, periwound okay. pulses diminished. calf okay. foot with decreased cap refill. please see photos Plain films noted venous duplex without dvt and patent. labs noted long discussion about wound and leg with patient. states he has no intention of having debridement, grafting, or amputation at anytime. will now allow wound to be cleaned properly. will only allow for dressing to be changed. -wash left ankle daily with NS. apply xeroform to wound, ABD, and wrap with kerlix thank you will follow with recs. Devon Sullivan Jan 01, 2019 12:40
--- NOTE | 2019-01-01 13:41 | General Progress Note ---
Assessment/Plan Problem List: (1) History of CVA (cerebrovascular accident) ICD Codes: Z86.73 - Personal history of transient ischemic attack (TIA), and cerebral infarction without residual deficits SNOMED: 240579249 (2) Cellulitis ICD Codes: L03.90 - Cellulitis, unspecified SNOMED: 991301327 (3) Anemia ICD Codes: D64.9 - Anemia SNOMED: 661932586 (4) Diabetes ICD Codes: E11.9 - Diabetes SNOMED: 74590562 (5) Hypertension ICD Codes: I10 - Hypertension SNOMED: 19510642 (6) Failure to thrive in adult ICD Codes: R62.7 - Adult failure to thrive SNOMED: 185689045 (7) Ulcer of left ankle ICD Codes: L97.329 - Non-pressure chronic ulcer of left ankle with unspecified severity SNOMED: 644973642, 83853263 Qualifiers: Qualified Codes: L97.322 - Non-pressure chronic ulcer of left ankle with fat layer exposed Status: stable, progressing Assessment/Plan wound care abx pain control cbc bmp am ltach eval Subjective Constitutional: Reports: weakness Allergies: Coded Allergies: THIORIDAZINE (Unverified Allergy, Mild, HIVES, 04/06/15) PENICILLIN (Unverified Allergy, Unknown, 06/15/15) PENICILLINS (Unverified Allergy, Unknown, 11/24/17) All Systems: reviewed and negative except above Subjective sl foot pain Objective Last 24 Hour Vital Signs Date Time Temp Pulse Resp B/P (MAP) Pulse Ox O2 Delivery O2 Flow Rate FiO2 01/01/19 09:43 79 18 Room Air 21 01/01/19 09:09 132/70 01/01/19 09:09 81 132/70 01/01/19 09:00 Room Air Room Air 01/01/19 08:00 96.8 51 18 99 102/53 (69) 01/01/19 00:00 97.7 70 16 98 99/54 (69) 12/31/18 21:00 Room Air Room Air 12/31/18 20:44 83 18 Room Air 21 12/31/18 20:00 98.0 83 17 98 102/68 (79) 12/31/18 16:00 98.1 90 20 99 103/57 (72) Intake and Output 12/31/18 01/01/19 18:59 06:59 Intake Total 600 ml 200 ml Output Total 500 ml 500 ml Balance 100 ml -300 ml Intake Oral 600 ml 200 ml Output Urine Total 500 ml 500 ml # Voids 3 Laboratory Tests 01/01/19 06:25: White Blood Count 7.4, Red Blood Count 3.88L, Hemoglobin 11.0L, Hematocrit 34.9L , Mean Corpuscular Volume 90, Mean Corpuscular Hemoglobin 28.4, Mean Corpuscular Hemoglobin Concent 31.6L, Red Cell Distribution Width 14.3, Platelet Count 277, Mean Platelet Volume 7.3, Neutrophils (%) (Auto) 62.4, Lymphocytes (%) (Auto) 22.1, Monocytes (%) (Auto) 9.7, Eosinophils (%) (Auto) 4.5H, Basophils (%) (Auto) 1.2, Sodium Level 140, Potassium Level 4.6, Chloride Level 105, Carbon Dioxide Level 28, Anion Gap 7, Blood Urea Nitrogen 38H, Creatinine 1.4H, Estimat Glomerular Filtration Rate > 60, Glucose Level 121H, Calcium Level 9.9 Height (Feet): 5 Height (Inches): 10.00 Weight (Pounds): 174 General Appearance: lethargic EENT: normal ENT inspection Neck: normal alignment Cardiovascular: normal peripheral pulses, normal rate, regular rhythm Respiratory/Chest: chest wall non-tender, lungs clear, normal breath sounds Abdomen: normal bowel sounds, non tender, soft Extremities: normal inspection Edema: no edema noted Arm (L), no edema noted Arm (R), no edema noted Leg (L), no edema noted Leg (R), no edema noted Pedal (L), no edema noted Pedal (R), no edema noted Generalized Neurologic: motor weakness Skin: normal pigmentation, warm/dry Objective foot dressing c&d Jarek Gonzalez DO Jan 01, 2019 13:41
--- NOTE | 2019-01-01 14:16 | Pulmonology Progress Note ---
Assessment/Plan Problems: (1) Cellulitis (2) Severe anemia (3) Hypertension (4) UTI (urinary tract infection) (5) Schizoaffective disorder (6) Diabetes (7) History of CVA (cerebrovascular accident) Assessment/Plan in better spirit wound care IV abx check cultures symptomatic treatment respiratory treatment dvt prophylaxis. dc planning in progress Subjective ROS Limited/Unobtainable: No Constitutional: Reports: no symptoms Allergies: Coded Allergies: THIORIDAZINE (Unverified Allergy, Mild, HIVES, 04/06/15) PENICILLIN (Unverified Allergy, Unknown, 06/15/15) PENICILLINS (Unverified Allergy, Unknown, 11/24/17) Objective Last 24 Hour Vital Signs Date Time Temp Pulse Resp B/P (MAP) Pulse Ox O2 Delivery O2 Flow Rate FiO2 01/01/19 09:43 79 18 Room Air 21 01/01/19 09:09 132/70 01/01/19 09:09 81 132/70 01/01/19 09:00 Room Air Room Air 01/01/19 08:00 96.8 51 18 99 102/53 (69) 01/01/19 00:00 97.7 70 16 98 99/54 (69) 12/31/18 21:00 Room Air Room Air 12/31/18 20:44 83 18 Room Air 21 12/31/18 20:00 98.0 83 17 98 102/68 (79) 12/31/18 16:00 98.1 90 20 99 103/57 (72) Intake and Output 12/31/18 01/01/19 18:59 06:59 Intake Total 600 ml 200 ml Output Total 500 ml 500 ml Balance 100 ml -300 ml Intake Oral 600 ml 200 ml Output Urine Total 500 ml 500 ml # Voids 3 Objective General Appearance: WD/WN Lines, tubes and drains: peripheral HEENT: normocephalic, atraumatic Neck: non-tender, supple Respiratory/Chest: chest wall non-tender, lungs clear Breasts: no masses Cardiovascular/Chest: normal rate, no JVD Abdomen: normal bowel sounds Genitourinary/Rectal: normal genital exam, heme negative stool Extremities: normal range of motion, non-tender Skin Exam: normal pigmentation Neurologic: submersible 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 II-XII 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 Laboratory Tests 01/01/19 06:25: White Blood Count 7.4, Red Blood Count 3.88L, Hemoglobin 11.0L, Hematocrit 34.9L , Mean Corpuscular Volume 90, Mean Corpuscular Hemoglobin 28.4, Mean Corpuscular Hemoglobin Concent 31.6L, Red Cell Distribution Width 14.3, Platelet Count 277, Mean Platelet Volume 7.3, Neutrophils (%) (Auto) 62.4, Lymphocytes (%) (Auto) 22.1, Monocytes (%) (Auto) 9.7, Eosinophils (%) (Auto) 4.5H, Basophils (%) (Auto) 1.2, Sodium Level 140, Potassium Level 4.6, Chloride Level 105, Carbon Dioxide Level 28, Anion Gap 7, Blood Urea Nitrogen 38H, Creatinine 1.4H, Estimat Glomerular Filtration Rate > 60, Glucose Level 121H, Calcium Level 9.9 Current Medications Medications (Trade) Dose Ordered Sig/Taco Route PRN Reason Start Time Stop Time Status Last Admin Dose Admin Acetaminophen (Tylenol) 650 mg Q4H PRN ORAL fever 12/26/18 19:30 01/25/19 19:29 Amlodipine Besylate (Norvasc) 10 mg DAILY ORAL 12/27/18 09:00 01/26/19 08:59 01/01/19 09:09 Benazepril HCl (Lotensin) 10 mg DAILY ORAL 12/27/18 09:00 01/26/19 08:59 01/01/19 09:09 Benztropine Mesylate (Cogentin) 1 mg THREE TIMES A DAY ORAL 12/27/18 18:00 01/26/19 17:59 01/01/19 12:18 Clonidine HCl (Catapres Tab) 0.1 mg Q6H PRN ORAL For High Blood Pressure 12/26/18 20:00 01/25/19 19:59 Clopidogrel Bisulfate (Plavix) 75 mg DAILY ORAL 12/27/18 09:00 01/26/19 08:59 01/01/19 09:09 Dextrose (Dextrose 50%) 25 ml Q30M PRN IV Hypoglycemia 12/26/18 19:45 01/25/19 19:33 Dextrose (Dextrose 50%) 50 ml Q30M PRN IV hypoglycemia 12/26/18 19:45 01/25/19 19:44 Divalproex Sodium (Depakote) 250 mg Q12HR ORAL 12/26/18 21:00 01/25/19 20:59 01/01/19 09:08 Doxycycline Monohydrate (Vibramycin) 100 mg EVERY 12 HOURS ORAL 12/28/18 18:00 01/04/19 17:59 01/01/19 09:09 Gabapentin (Neurontin) 300 mg THREE TIMES A DAY ORAL 12/27/18 09:00 01/26/19 08:59 01/01/19 12:18 Haloperidol (Haldol) 5 mg TID ORAL 12/27/18 18:00 01/26/19 17:59 01/01/19 12:18 Heparin Sodium (Porcine) (Heparin 5000 units/ml) 5,000 units EVERY 12 HOURS SUBQ 12/26/18 21:00 01/25/19 20:59 01/01/19 09:11 Insulin Aspart (NovoLOG) BEFORE MEALS AND HS SUBQ 12/26/18 21:00 01/25/19 20:59 01/01/19 12:16 Magnesium Hydroxide (Mom) 30 ml DAILYPRN PRN ORAL Constipation 12/26/18 20:00 01/25/19 19:59 Morphine Sulfate (Morphine Sulfate) 2 mg Q4H PRN IVP Moderate Pain (Pain Scale 4-6) 12/26/18 19:30 01/02/19 19:29 01/01/19 06:08 Nitroglycerin (Ntg) 0.4 mg Q5M PRN SL Prn Chest Pain 12/26/18 19:30 01/25/19 19:29 Ondansetron HCl (Zofran) 4 mg Q6H PRN IVP Nausea & Vomiting 12/26/18 19:30 01/25/19 19:29 12/29/18 09:04 Pantoprazole (Protonix) 40 mg DAILY ORAL 12/27/18 09:00 01/26/19 08:59 01/01/19 09:09 Paroxetine HCl (Paxil) 30 mg DAILY ORAL 12/27/18 09:00 01/26/19 08:59 01/01/19 09:09 Polyethylene Glycol (Miralax) 17 gm DAILYPRN PRN ORAL Constipation 12/26/18 20:00 01/25/19 19:29 Quetiapine Fumarate (SEROquel) 100 mg THREE TIMES A DAY ORAL 12/27/18 09:00 01/26/19 08:59 01/01/19 12:18 Tamsulosin HCl (Flomax) 0.4 mg BEDTIME ORAL 12/26/18 21:00 01/25/19 20:59 12/31/18 20:21 Temazepam (Restoril) 15 mg HSPRN PRN ORAL Insomnia 12/26/18 19:30 01/02/19 19:29 Trazodone HCl (Desyrel) 100 mg BEDTIME ORAL 12/26/18 21:00 01/25/19 20:59 12/31/18 20:21 Vanesa Skinner MD Jan 01, 2019 14:16
--- NOTE | 2019-01-01 15:30 | NUR ---
NURSE NOTES: Patient complained of chest pain. Administered NTG as ordered x1 and notified Dr. Gonzalez. Received new orders for troponin x1, ekg, and notify Dr. Polo. Paged Dr. Polo, awaiting response. Patient is stable after receiving NTG, O2 is 96%, BP 115/52, P 53, 0/10 chest pain. Patient stated that his chest pain is resolved. Will continue to monitor patient.
[2019-01-01 16:00] VITALS: BP 134/84
--- NOTE | 2019-01-01 16:30 | NUR ---
NURSE NOTES: Patient refused dressing change x2. Patient yelled at nurse and said "no, don't open the blanket". Patient did not allow nurse to look at leg or change dressing at this time. Will continue to monitor patient.
--- NOTE | 2019-01-01 19:00 | Progress Note ---
DATE: 01/01/2019 SUBJECTIVE: The patient is a 68-year-old male patient with left ankle ulcer but he has got lot mood lability, agitation, confusion, impulsivity secondary to stress of his medical illness. MENTAL STATUS EXAMINATION: This is a 68-year-old male. Appearance is disheveled. Attitude, irritable and agitated. Affect, guarded and restricted. Intellect poor. Mood depressed and anxious. Motor activity, psychomotor agitation. Attention span is poor. Orientation x2. Speech is pressured. Thought process, disorganized and illogical. Insight and judgment are poor. DIAGNOSIS: Schizoaffective, bipolar type. PLAN: Continue to treat him with Depakote as well as Haldol 5 mg three times a day, Seroquel 100 mg three times a day. Provide him with 20 minutes of cognitive behavioral therapy to help him identify his automatic negative thoughts and help him convert those negative thoughts to more positive thoughts to reduce depression, anxiety, and mood lability. Chart was reviewed. Discussed with staff. Seen and assessed at bedside. Uziel Collado M.D. DR: Sandra JOB#: [id number] CC:
--- NOTE | 2019-01-01 19:11 | NUR ---
HAND-OFF: Report given to Tueyt ESPINOZA. Patient is stable.
--- NOTE | 2019-01-01 19:26 | NUR ---
NURSE NOTES: Received asleep in bed, not in acute respiratory distress, no sign of pain. Call light and needs in reach. Bed in lowest position, lock engaged and alarm on. Will continue to monitor.
[2019-01-01 20:00] VITALS: BP 111/70
[2019-01-01] MEDS: TraZODone 100mg tab ORAL SCH (21:19)
[2019-01-01] MEDS: Tamsulosin 0.4mg cap ORAL SCH (21:19)
[2019-01-02] VITALS: BP 113/78
[2019-01-02 04:00] VITALS: BP 116/65
[2019-01-02] MEDS: NovoLOG Insulin Flexpen SUBQ SCH ×4 (06:05→20:32)
[2019-01-02 07:25] LABS: BASOPHILS % (AUTO) 0.6 % (0.0-2.0); EOSINOPHILS % (AUTO) 4.2 % (0.0-3.0); HEMATOCRIT 33.8 % (42.0-52.0); HEMOGLOBIN 10.6 G/DL (14.2-18.0); LYMPHOCYTES % (AUTO) 27.7 % (20.0-45.0); MEAN CORPUSCULAR VOLUME 90 FL (80-99); MONOCYTES % (AUTO) 11.3 % (1.0-10.0); NEUTROPHILS % (AUTO) 56.2 % (45.0-75.0); PLATELET COUNT 247 K/UL (150-450); RED BLOOD COUNT 3.76 M/UL (4.70-6.10); RED CELL DISTRIBUTION WIDTH 14.3 % (11.6-14.8); WHITE BLOOD COUNT 7.3 K/UL (4.8-10.8)
--- NOTE | 2019-01-02 07:33 | NUR ---
HAND-OFF: Report given to OLGA Pulido.
--- NOTE | 2019-01-02 07:33 | NUR ---
NURSE NOTES: Patient alert x3, on room air, no sing of shortness of breath, no distress; no sign of chest pain; Dressing on left ankle dry and intact; bed bound, bed at lowest level, side rails up x2, breaks engaged, bed alarm on; call light within reach. Will keep monitoring.
[2019-01-02 07:51] LABS: ANION GAP 9 mmol/L (5-15); BLOOD UREA NITROGEN 45 mg/dL (7-18); CARBON DIOXIDE 25 MMOL/L (21-32); CHLORIDE 106 MMOL/L (98-107); CREATININE 1.4 MG/DL (0.55-1.30); POTASSIUM 4.1 MMOL/L (3.5-5.1); SODIUM 140 MMOL/L (136-145)
[2019-01-02 08:00] VITALS: BP 113/67
[2019-01-02] MEDS: PARoxetine 10mg tab ORAL SCH (09:13)
[2019-01-02] MEDS: Benztropine 1mg tab ORAL SCH ×3 (09:13→17:30)
[2019-01-02] MEDS: Benazepril 10mg tab ORAL SCH (09:13)
[2019-01-02] MEDS: Heparin 5000 units/ml inj SUBQ SCH ×2 (09:15→20:32)
--- NOTE | 2019-01-02 11:38 | Surgery Progress Note ---
Surgery Progress Note Subjective Additional Comments no acute events. resting comfortable. no n/v/f/c. Objective Last 24 Hour Vital Signs Date Time Temp Pulse Resp B/P (MAP) Pulse Ox O2 Delivery O2 Flow Rate FiO2 01/02/19 09:13 113/67 01/02/19 09:12 83 113/67 01/02/19 09:00 Room Air Room Air 01/02/19 08:00 97.5 16 98 113/67 (82) 01/02/19 04:00 98.2 18 94 116/65 (82) 01/02/19 00:00 97.8 18 94 113/78 (90) 01/01/19 21:41 83 18 Room Air 21 01/01/19 21:00 Room Air Room Air 01/01/19 20:00 99.1 18 99 111/70 (84) 01/01/19 16:00 98.1 92 18 95 134/84 (101) 01/01/19 15:18 115/52 01/01/19 12:00 97.1 53 18 99 98/51 (67) I&O Intake and Output 01/01/19 01/02/19 19:00 07:00 Intake Total 720 ml Output Total 600 ml Balance 120 ml Intake Oral 720 ml Output Urine Total 600 ml # Voids 1 Dressing: saturated Wound: other Drains: none Cardiovascular: RSR Respiratory: clear Abdomen: soft, non-tender, present bowel sounds, non-distended Extremities: cyanosis, other Laboratory Tests Test 01/01/19 16:40 01/02/19 04:58 Troponin I 0.000 ng/mL (0.000-0.056) White Blood Count 7.3 K/UL (4.8-10.8) Red Blood Count 3.76 M/UL (4.70-6.10) L Hemoglobin 10.6 G/DL (14.2-18.0) L Hematocrit 33.8 % (42.0-52.0) L Mean Corpuscular Volume 90 FL (80-99) Mean Corpuscular Hemoglobin 28.2 PG (27.0-31.0) Mean Corpuscular Hemoglobin Concent 31.5 G/DL (32.0-36.0) L Red Cell Distribution Width 14.3 % (11.6-14.8) Platelet Count 247 K/UL (150-450) Mean Platelet Volume 7.1 FL (6.5-10.1) Neutrophils (%) (Auto) 56.2 % (45.0-75.0) Lymphocytes (%) (Auto) 27.7 % (20.0-45.0) Monocytes (%) (Auto) 11.3 % (1.0-10.0) H Eosinophils (%) (Auto) 4.2 % (0.0-3.0) H Basophils (%) (Auto) 0.6 % (0.0-2.0) Sodium Level 140 MMOL/L (136-145) Potassium Level 4.1 MMOL/L (3.5-5.1) Chloride Level 106 MMOL/L (98-107) Carbon Dioxide Level 25 MMOL/L (21-32) Anion Gap 9 mmol/L (5-15) Blood Urea Nitrogen 45 mg/dL (7-18) H Creatinine 1.4 MG/DL (0.55-1.30) H Estimat Glomerular Filtration Rate > 60 mL/min (>60) Glucose Level 95 MG/DL (74-106) Calcium Level 10.0 MG/DL (8.5-10.1) Plan Problems: (1) Ulcer of left ankle Assessment & Plan: large chronic left ankle ulceration near circumferential on left ankle. full thickness with eschar on some areas and some areas of granulation tissue. no drainage. no fluctuance. tender, periwound okay. pulses diminished. calf okay. foot with decreased cap refill. please see photos Plain films noted venous duplex without dvt and patent. labs noted long discussion about wound and leg with patient. states he has no intention of having debridement, grafting, or amputation at anytime. will now allow wound to be cleaned properly. will only allow for dressing to be changed. -wash left ankle daily with NS. apply xeroform to wound, ABD, and wrap with kerlix -okay to d/c from surgical standpoint -outpatient wound care follow up thank you will follow with recs. Devon Sullivan Jan 02, 2019 11:38
[2019-01-02 12:00] VITALS: BP 133/85
--- NOTE | 2019-01-02 12:46 | NUR ---
*-* DISCHARGE PLANNING *-* PATIENT HAS BEEN REFERRED TO: [email or web address] [phone] Work [phone] Work Work Fax 2 Addendum: 01/02/19 at 1559 by JOSESITO GUZMÁN CM DISREGARD THIS NOTE WRONG PATIENT
--- NOTE | 2019-01-02 13:04 | Infectious Diseases Prog Note ---
Assessment/Plan Assessment/Plan Assessment: L ankle ulcer- mild gavin wound cellulitis;ulcer itself not infected Wnd : Morg. M , StrpGrpG, cantor S PsA( colonizers ) -Xray ankle: No definite acute bony process. Possible lateral soft tissue irregularity-correlate with clinical findings -Bcx neg Afebrile Mild leukocytosis; SP DM2 HTN COPD SNF resident Plan: - Continue PO Doxy d# 6 (abx 05/05) IV Vancomycin #3 12/28 -s/p IV Vancomycin x1 12/26 -f/u cx -Monitor CBC/CMP, temperatures -wound care Subjective Allergies: Coded Allergies: THIORIDAZINE (Unverified Allergy, Mild, HIVES, 04/06/15) PENICILLIN (Unverified Allergy, Unknown, 06/15/15) PENICILLINS (Unverified Allergy, Unknown, 11/24/17) Subjective afebrile no leukocytosis Objective Vital Signs Last 24 Hour Vital Signs Date Time Temp Pulse Resp B/P (MAP) Pulse Ox O2 Delivery O2 Flow Rate FiO2 01/02/19 09:13 113/67 01/02/19 09:12 83 113/67 01/02/19 09:00 Room Air Room Air 01/02/19 08:00 97.5 16 98 113/67 (82) 01/02/19 04:00 98.2 18 94 116/65 (82) 01/02/19 00:00 97.8 18 94 113/78 (90) 01/01/19 21:41 83 18 Room Air 21 01/01/19 21:00 Room Air Room Air 01/01/19 20:00 99.1 18 99 111/70 (84) 01/01/19 16:00 98.1 92 18 95 134/84 (101) 01/01/19 15:18 115/52 Height (Feet): 5 Height (Inches): 10.00 Weight (Pounds): 174 Objective General Appearance: no apparent distress, alert, non-toxic HEENT: normocephalic, atraumatic bilateral eye PERRL, normal pharynx Neck: full range of motion, supple/symm/no masses Respiratory: chest non-tender, lungs clear, normal breath sounds, speaking full sentences Cardiovascular : regular rate, rhythm, no edema Gastrointestinal: normal bowel sounds, non tender, soft, non-distended, no guarding, no rebound Genitourinary: normal inspection, no CVA tenderness Musculoskeletal: back normal, gait/station normal, normal range of motion, non- tender Neurologic: alert, oriented x3, responsive, motor strength/tone normal, sensory intact, speech normal Psychiatric: judgement/insight normal, memory normal, mood/affect normal, no suicidal/homicidal ideation Skin: other - large ulcer to L ankle. surrounding erythema/induration Laboratory Tests Test 01/01/19 16:40 01/02/19 04:58 Troponin I 0.000 ng/mL (0.000-0.056) White Blood Count 7.3 K/UL (4.8-10.8) Red Blood Count 3.76 M/UL (4.70-6.10) L Hemoglobin 10.6 G/DL (14.2-18.0) L Hematocrit 33.8 % (42.0-52.0) L Mean Corpuscular Volume 90 FL (80-99) Mean Corpuscular Hemoglobin 28.2 PG (27.0-31.0) Mean Corpuscular Hemoglobin Concent 31.5 G/DL (32.0-36.0) L Red Cell Distribution Width 14.3 % (11.6-14.8) Platelet Count 247 K/UL (150-450) Mean Platelet Volume 7.1 FL (6.5-10.1) Neutrophils (%) (Auto) 56.2 % (45.0-75.0) Lymphocytes (%) (Auto) 27.7 % (20.0-45.0) Monocytes (%) (Auto) 11.3 % (1.0-10.0) H Eosinophils (%) (Auto) 4.2 % (0.0-3.0) H Basophils (%) (Auto) 0.6 % (0.0-2.0) Sodium Level 140 MMOL/L (136-145) Potassium Level 4.1 MMOL/L (3.5-5.1) Chloride Level 106 MMOL/L (98-107) Carbon Dioxide Level 25 MMOL/L (21-32) Anion Gap 9 mmol/L (5-15) Blood Urea Nitrogen 45 mg/dL (7-18) H Creatinine 1.4 MG/DL (0.55-1.30) H Estimat Glomerular Filtration Rate > 60 mL/min (>60) Glucose Level 95 MG/DL (74-106) Calcium Level 10.0 MG/DL (8.5-10.1) Current Medications Medications (Trade) Dose Ordered Sig/Taco Route PRN Reason Start Time Stop Time Status Last Admin Dose Admin Acetaminophen (Tylenol) 650 mg Q4H PRN ORAL fever 12/26/18 19:30 01/25/19 19:29 Amlodipine Besylate (Norvasc) 10 mg DAILY ORAL 12/27/18 09:00 01/26/19 08:59 01/02/19 09:12 Benazepril HCl (Lotensin) 10 mg DAILY ORAL 12/27/18 09:00 01/26/19 08:59 01/02/19 09:13 Benztropine Mesylate (Cogentin) 1 mg THREE TIMES A DAY ORAL 12/27/18 18:00 01/26/19 17:59 01/02/19 12:36 Clonidine HCl (Catapres Tab) 0.1 mg Q6H PRN ORAL For High Blood Pressure 12/26/18 20:00 01/25/19 19:59 Clopidogrel Bisulfate (Plavix) 75 mg DAILY ORAL 12/27/18 09:00 01/26/19 08:59 01/02/19 09:13 Dextrose (Dextrose 50%) 25 ml Q30M PRN IV Hypoglycemia 12/26/18 19:45 01/25/19 19:33 Dextrose (Dextrose 50%) 50 ml Q30M PRN IV hypoglycemia 12/26/18 19:45 01/25/19 19:44 Divalproex Sodium (Depakote) 250 mg Q12HR ORAL 12/26/18 21:00 01/25/19 20:59 01/02/19 09:12 Doxycycline Monohydrate (Vibramycin) 100 mg EVERY 12 HOURS ORAL 12/28/18 18:00 01/04/19 17:59 01/02/19 09:13 Gabapentin (Neurontin) 300 mg THREE TIMES A DAY ORAL 12/27/18 09:00 01/26/19 08:59 01/02/19 12:36 Haloperidol (Haldol) 5 mg TID ORAL 12/27/18 18:00 01/26/19 17:59 01/02/19 12:36 Heparin Sodium (Porcine) (Heparin 5000 units/ml) 5,000 units EVERY 12 HOURS SUBQ 12/26/18 21:00 01/25/19 20:59 01/02/19 09:15 Insulin Aspart (NovoLOG) BEFORE MEALS AND HS SUBQ 12/26/18 21:00 01/25/19 20:59 01/01/19 21:20 Magnesium Hydroxide (Mom) 30 ml DAILYPRN PRN ORAL Constipation 12/26/18 20:00 01/25/19 19:59 Morphine Sulfate (Morphine Sulfate) 2 mg Q4H PRN IVP Moderate Pain (Pain Scale 4-6) 12/26/18 19:30 01/02/19 19:29 01/01/19 06:08 Nitroglycerin (Ntg) 0.4 mg Q5M PRN SL Prn Chest Pain 12/26/18 19:30 01/25/19 19:29 01/01/19 15:18 Ondansetron HCl (Zofran) 4 mg Q6H PRN IVP Nausea & Vomiting 12/26/18 19:30 01/25/19 19:29 12/29/18 09:04 Pantoprazole (Protonix) 40 mg DAILY ORAL 12/27/18 09:00 01/26/19 08:59 01/02/19 09:13 Paroxetine HCl (Paxil) 30 mg DAILY ORAL 12/27/18 09:00 01/26/19 08:59 01/02/19 09:13 Polyethylene Glycol (Miralax) 17 gm DAILYPRN PRN ORAL Constipation 12/26/18 20:00 01/25/19 19:29 Quetiapine Fumarate (SEROquel) 100 mg THREE TIMES A DAY ORAL 12/27/18 09:00 01/26/19 08:59 01/02/19 12:36 Tamsulosin HCl (Flomax) 0.4 mg BEDTIME ORAL 12/26/18 21:00 01/25/19 20:59 01/01/19 21:19 Temazepam (Restoril) 15 mg HSPRN PRN ORAL Insomnia 12/26/18 19:30 01/02/19 19:29 Trazodone HCl (Desyrel) 100 mg BEDTIME ORAL 12/26/18 21:00 01/25/19 20:59 01/01/19 21:19 Mireya Campos M.D. Jan 02, 2019 13:04
--- NOTE | 2019-01-02 13:49 | Pulmonology Progress Note ---
Assessment/Plan Problems: (1) Cellulitis (2) Severe anemia (3) Hypertension (4) UTI (urinary tract infection) (5) Schizoaffective disorder (6) Diabetes (7) History of CVA (cerebrovascular accident) Assessment/Plan doing better in better spirit wound care IV abx check cultures symptomatic treatment respiratory treatment dvt prophylaxis. dc planning in progress Subjective ROS Limited/Unobtainable: No Constitutional: Reports: no symptoms HEENT: Repors: no symptoms Respiratory: Reports: no symptoms Allergies: Coded Allergies: THIORIDAZINE (Unverified Allergy, Mild, HIVES, 04/06/15) PENICILLIN (Unverified Allergy, Unknown, 06/15/15) PENICILLINS (Unverified Allergy, Unknown, 11/24/17) Objective Last 24 Hour Vital Signs Date Time Temp Pulse Resp B/P (MAP) Pulse Ox O2 Delivery O2 Flow Rate FiO2 01/02/19 09:13 113/67 01/02/19 09:12 83 113/67 01/02/19 09:00 Room Air Room Air 01/02/19 08:00 97.5 16 98 113/67 (82) 01/02/19 04:00 98.2 18 94 116/65 (82) 01/02/19 00:00 97.8 18 94 113/78 (90) 01/01/19 21:41 83 18 Room Air 21 01/01/19 21:00 Room Air Room Air 01/01/19 20:00 99.1 18 99 111/70 (84) 01/01/19 16:00 98.1 92 18 95 134/84 (101) 01/01/19 15:18 115/52 Intake and Output 01/01/19 01/02/19 18:59 06:59 Intake Total 720 ml Output Total 600 ml Balance 120 ml Intake Oral 720 ml Output Urine Total 600 ml # Voids 1 Objective General Appearance: WD/WN Lines, tubes and drains: peripheral HEENT: normocephalic, atraumatic Neck: non-tender, supple Respiratory/Chest: chest wall non-tender, lungs clear Breasts: no masses Cardiovascular/Chest: normal rate, no JVD Abdomen: normal bowel sounds Genitourinary/Rectal: normal genital exam, heme negative stool Extremities: normal range of motion, non-tender Skin Exam: normal pigmentation 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 Laboratory Tests 01/01/19 16:40: Troponin I 0.000 01/02/19 04:58: White Blood Count 7.3, Red Blood Count 3.76L, Hemoglobin 10.6L, Hematocrit 33.8L , Mean Corpuscular Volume 90, Mean Corpuscular Hemoglobin 28.2, Mean Corpuscular Hemoglobin Concent 31.5L, Red Cell Distribution Width 14.3, Platelet Count 247, Mean Platelet Volume 7.1, Neutrophils (%) (Auto) 56.2, Lymphocytes (%) (Auto) 27.7, Monocytes (%) (Auto) 11.3H, Eosinophils (%) (Auto) 4.2H, Basophils (%) (Auto) 0.6, Sodium Level 140, Potassium Level 4.1, Chloride Level 106, Carbon Dioxide Level 25, Anion Gap 9, Blood Urea Nitrogen 45H, Creatinine 1.4H, Estimat Glomerular Filtration Rate > 60, Glucose Level 95, Calcium Level 10.0 Current Medications Medications (Trade) Dose Ordered Sig/Taco Route PRN Reason Start Time Stop Time Status Last Admin Dose Admin Acetaminophen (Tylenol) 650 mg Q4H PRN ORAL fever 12/26/18 19:30 01/25/19 19:29 Amlodipine Besylate (Norvasc) 10 mg DAILY ORAL 12/27/18 09:00 01/26/19 08:59 01/02/19 09:12 Benazepril HCl (Lotensin) 10 mg DAILY ORAL 12/27/18 09:00 01/26/19 08:59 01/02/19 09:13 Benztropine Mesylate (Cogentin) 1 mg THREE TIMES A DAY ORAL 12/27/18 18:00 01/26/19 17:59 01/02/19 12:36 Clonidine HCl (Catapres Tab) 0.1 mg Q6H PRN ORAL For High Blood Pressure 12/26/18 20:00 01/25/19 19:59 Clopidogrel Bisulfate (Plavix) 75 mg DAILY ORAL 12/27/18 09:00 01/26/19 08:59 01/02/19 09:13 Dextrose (Dextrose 50%) 25 ml Q30M PRN IV Hypoglycemia 12/26/18 19:45 01/25/19 19:33 Dextrose (Dextrose 50%) 50 ml Q30M PRN IV hypoglycemia 12/26/18 19:45 01/25/19 19:44 Divalproex Sodium (Depakote) 250 mg Q12HR ORAL 12/26/18 21:00 01/25/19 20:59 01/02/19 09:12 Doxycycline Monohydrate (Vibramycin) 100 mg EVERY 12 HOURS ORAL 12/28/18 18:00 01/04/19 17:59 01/02/19 09:13 Gabapentin (Neurontin) 300 mg THREE TIMES A DAY ORAL 12/27/18 09:00 01/26/19 08:59 01/02/19 12:36 Haloperidol (Haldol) 5 mg TID ORAL 12/27/18 18:00 01/26/19 17:59 01/02/19 12:36 Heparin Sodium (Porcine) (Heparin 5000 units/ml) 5,000 units EVERY 12 HOURS SUBQ 12/26/18 21:00 01/25/19 20:59 01/02/19 09:15 Insulin Aspart (NovoLOG) BEFORE MEALS AND HS SUBQ 12/26/18 21:00 01/25/19 20:59 01/01/19 21:20 Magnesium Hydroxide (Mom) 30 ml DAILYPRN PRN ORAL Constipation 12/26/18 20:00 01/25/19 19:59 Morphine Sulfate (Morphine Sulfate) 2 mg Q4H PRN IVP Moderate Pain (Pain Scale 4-6) 12/26/18 19:30 01/02/19 19:29 01/01/19 06:08 Nitroglycerin (Ntg) 0.4 mg Q5M PRN SL Prn Chest Pain 12/26/18 19:30 01/25/19 19:29 01/01/19 15:18 Ondansetron HCl (Zofran) 4 mg Q6H PRN IVP Nausea & Vomiting 12/26/18 19:30 01/25/19 19:29 12/29/18 09:04 Pantoprazole (Protonix) 40 mg DAILY ORAL 12/27/18 09:00 01/26/19 08:59 01/02/19 09:13 Paroxetine HCl (Paxil) 30 mg DAILY ORAL 12/27/18 09:00 01/26/19 08:59 01/02/19 09:13 Polyethylene Glycol (Miralax) 17 gm DAILYPRN PRN ORAL Constipation 12/26/18 20:00 01/25/19 19:29 Quetiapine Fumarate (SEROquel) 100 mg THREE TIMES A DAY ORAL 12/27/18 09:00 01/26/19 08:59 01/02/19 12:36 Tamsulosin HCl (Flomax) 0.4 mg BEDTIME ORAL 12/26/18 21:00 01/25/19 20:59 01/01/19 21:19 Temazepam (Restoril) 15 mg HSPRN PRN ORAL Insomnia 12/26/18 19:30 01/02/19 19:29 Trazodone HCl (Desyrel) 100 mg BEDTIME ORAL 12/26/18 21:00 01/25/19 20:59 01/01/19 21:19 Vanesa Skinner MD Jan 02, 2019 13:49
--- NOTE | 2019-01-02 15:10 | General Progress Note ---
Assessment/Plan Problem List: (1) History of CVA (cerebrovascular accident) ICD Codes: Z86.73 - Personal history of transient ischemic attack (TIA), and cerebral infarction without residual deficits SNOMED: 945770207 (2) Cellulitis ICD Codes: L03.90 - Cellulitis, unspecified SNOMED: 912162012 (3) Anemia ICD Codes: D64.9 - Anemia SNOMED: 294739180 (4) Diabetes ICD Codes: E11.9 - Diabetes SNOMED: 44045331 (5) Hypertension ICD Codes: I10 - Hypertension SNOMED: 76906924 (6) Failure to thrive in adult ICD Codes: R62.7 - Adult failure to thrive SNOMED: 225014411 (7) Ulcer of left ankle ICD Codes: L97.329 - Non-pressure chronic ulcer of left ankle with unspecified severity SNOMED: 904357123, 64450680 Qualifiers: Qualified Codes: L97.322 - Non-pressure chronic ulcer of left ankle with fat layer exposed Status: stable, progressing Assessment/Plan wound care abx pain control cbc bmp am dc to snf if clear Subjective Constitutional: Reports: weakness Allergies: Coded Allergies: THIORIDAZINE (Unverified Allergy, Mild, HIVES, 04/06/15) PENICILLIN (Unverified Allergy, Unknown, 06/15/15) PENICILLINS (Unverified Allergy, Unknown, 11/24/17) All Systems: reviewed and negative except above Subjective sl foot pain Objective Last 24 Hour Vital Signs Date Time Temp Pulse Resp B/P (MAP) Pulse Ox O2 Delivery O2 Flow Rate FiO2 01/02/19 09:13 113/67 01/02/19 09:12 83 113/67 01/02/19 09:00 Room Air Room Air 01/02/19 08:00 97.5 16 98 113/67 (82) 01/02/19 04:00 98.2 18 94 116/65 (82) 01/02/19 00:00 97.8 18 94 113/78 (90) 01/01/19 21:41 83 18 Room Air 21 01/01/19 21:00 Room Air Room Air 01/01/19 20:00 99.1 18 99 111/70 (84) 01/01/19 16:00 98.1 92 18 95 134/84 (101) 01/01/19 15:18 115/52 Intake and Output 01/01/19 01/02/19 18:59 06:59 Intake Total 720 ml Output Total 600 ml Balance 120 ml Intake Oral 720 ml Output Urine Total 600 ml # Voids 1 Laboratory Tests 01/01/19 16:40: Troponin I 0.000 01/02/19 04:58: White Blood Count 7.3, Red Blood Count 3.76L, Hemoglobin 10.6L, Hematocrit 33.8L , Mean Corpuscular Volume 90, Mean Corpuscular Hemoglobin 28.2, Mean Corpuscular Hemoglobin Concent 31.5L, Red Cell Distribution Width 14.3, Platelet Count 247, Mean Platelet Volume 7.1, Neutrophils (%) (Auto) 56.2, Lymphocytes (%) (Auto) 27.7, Monocytes (%) (Auto) 11.3H, Eosinophils (%) (Auto) 4.2H, Basophils (%) (Auto) 0.6, Sodium Level 140, Potassium Level 4.1, Chloride Level 106, Carbon Dioxide Level 25, Anion Gap 9, Blood Urea Nitrogen 45H, Creatinine 1.4H, Estimat Glomerular Filtration Rate > 60, Glucose Level 95, Calcium Level 10.0 Height (Feet): 5 Height (Inches): 10.00 Weight (Pounds): 174 General Appearance: lethargic EENT: normal ENT inspection Neck: normal alignment Cardiovascular: normal peripheral pulses, normal rate, regular rhythm Respiratory/Chest: chest wall non-tender, lungs clear, normal breath sounds Abdomen: normal bowel sounds, non tender, soft Extremities: normal inspection Edema: no edema noted Arm (L), no edema noted Arm (R), no edema noted Leg (L), no edema noted Leg (R), no edema noted Pedal (L), no edema noted Pedal (R), no edema noted Generalized Neurologic: responsive, motor weakness Skin: normal pigmentation, warm/dry Objective foot dressing c&d Jarek Gonzalez DO Jan 02, 2019 15:10
--- NOTE | 2019-01-02 15:20 | Cardiology Report ---
APPROVED REPORT EKG Measurement Heart [id number] Normal sinus rhythm Normal ECG
[2019-01-02] MEDS ORDERED: ACETAMINOPHEN325 M1 ORAL (15:35)
[2019-01-02] MEDS ORDERED: BENZTROPINE ME0.5 MG PO (15:37)
[2019-01-02] MEDS ORDERED: HALOPERIDOL5 MG ORAL (15:42)
[2019-01-02] MEDS ORDERED: DOXYCYCLINE HY100 M2 PO (15:48)
--- NOTE | 2019-01-02 15:59 | NUR ---
*-* DISCHARGE PLANNING *-* PATIENT HAS BEEN REFERRED TO: [facility] P:[phone] F:[phone]
[2019-01-02 16:00] VITALS: BP 119/68
--- NOTE | 2019-01-02 18:00 | NUR ---
NURSE NOTES: Patient refused to be changer, also refused to change his left leg dressing. Charge Nurse paul Wray.
--- NOTE | 2019-01-02 18:57 | NUR ---
CASE MANAGEMENT: REVIEW SI: LEFT ANKLE ULCER . CELLULITIS T 97.7 HR 101 RR 20 BP 133/85 SAT 97% ROOM AIR H/H 10.6/33.8 BUN 45 CR 1.4 IS: DOXYCYCLINE PO Q12HR MORPHINE IV QHR PRN MED/SURG STATUS DCP: PATIENT IS FROM [facility]
--- NOTE | 2019-01-02 19:31 | Progress Note ---
DATE: 01/02/2019 SUBJECTIVE: This is a male patient who is 68-year-old. He has left ankle ulcer that is causing increased mood lability, worsened by the stress of his medical illness. That is why, he does require daily psychiatric consultation because his mood lability has worsened, worsened by stress of his medical illness. That is why, his attending physician has requested daily psychiatric consultation. DIAGNOSIS: Schizoaffective, bipolar type. PLAN: Plan for this patient is to treat him with a medication regimen of trazodone 100 mg at bedtime, Paxil 30 mg daily, Seroquel 100 mg 2 times a day, Neurontin 300 mg 2 times a day, Haldol 5 mg 2 times a day, Depakote 250 mg q.12 hours. Provide him with 20 minutes of cognitive behavioral therapy to help him identify his automatic negative thoughts and help him convert those negative thoughts to more positive thoughts to reduce depression, anxiety, and mood lability. 20 minutes of cognitive behavioral therapy provided. Chart reviewed. Discussed with staff. Seen and assessed at bedside. Uziel Collado M.D. DR: GIOAVNNA JOB#: [id number] CC:
--- NOTE | 2019-01-02 19:41 | NUR ---
HAND-OFF: Report given to OLGA Downey.
[2019-01-02 20:00] VITALS: BP 149/74
--- NOTE | 2019-01-02 20:08 | NUR ---
NURSE NOTES: received patient comfortably sleeping,no complaints.
[2019-01-02] MEDS: TraZODone 100mg tab ORAL SCH (20:32)
[2019-01-02] MEDS: Tamsulosin 0.4mg cap ORAL SCH (20:32)
--- NOTE | 2019-01-02 21:31 | Cardiology Progress Note ---
Assessment/Plan Assessment/Plan The patient is seen and examined, full consult note is dictated. Objective Last 24 Hour Vital Signs Date Time Temp Pulse Resp B/P (MAP) Pulse Ox O2 Delivery O2 Flow Rate FiO2 01/02/19 21:00 Room Air Room Air 01/02/19 16:00 97.9 92 20 99 119/68 (85) 01/02/19 12:00 97.7 101 18 97 133/85 (101) 01/02/19 09:13 113/67 01/02/19 09:12 83 113/67 01/02/19 09:00 Room Air Room Air 01/02/19 08:00 97.5 98 16 98 113/67 (82) 01/02/19 04:00 98.2 18 94 116/65 (82) 01/02/19 00:00 97.8 18 94 113/78 (90) 01/01/19 21:41 83 18 Room Air 21 Intake and Output 01/01/19 01/02/19 18:59 06:59 Intake Total 720 ml Output Total 600 ml Balance 120 ml Intake Oral 720 ml Output Urine Total 600 ml # Voids 1 Laboratory Tests Test 01/02/19 04:58 White Blood Count 7.3 K/UL (4.8-10.8) Red Blood Count 3.76 M/UL (4.70-6.10) L Hemoglobin 10.6 G/DL (14.2-18.0) L Hematocrit 33.8 % (42.0-52.0) L Mean Corpuscular Volume 90 FL (80-99) Mean Corpuscular Hemoglobin 28.2 PG (27.0-31.0) Mean Corpuscular Hemoglobin Concent 31.5 G/DL (32.0-36.0) L Red Cell Distribution Width 14.3 % (11.6-14.8) Platelet Count 247 K/UL (150-450) Mean Platelet Volume 7.1 FL (6.5-10.1) Neutrophils (%) (Auto) 56.2 % (45.0-75.0) Lymphocytes (%) (Auto) 27.7 % (20.0-45.0) Monocytes (%) (Auto) 11.3 % (1.0-10.0) H Eosinophils (%) (Auto) 4.2 % (0.0-3.0) H Basophils (%) (Auto) 0.6 % (0.0-2.0) Sodium Level 140 MMOL/L (136-145) Potassium Level 4.1 MMOL/L (3.5-5.1) Chloride Level 106 MMOL/L (98-107) Carbon Dioxide Level 25 MMOL/L (21-32) Anion Gap 9 mmol/L (5-15) Blood Urea Nitrogen 45 mg/dL (7-18) H Creatinine 1.4 MG/DL (0.55-1.30) H Estimat Glomerular Filtration Rate > 60 mL/min (>60) Glucose Level 95 MG/DL (74-106) Calcium Level 10.0 MG/DL (8.5-10.1) Jimenez Polo MD Jan 02, 2019 21:31
--- NOTE | 2019-01-02 22:34 | NUR ---
NURSE NOTES: Wound dressing dry and intact.
--- NOTE | 2019-01-02 23:01 | Progress Note ---
DATE: 01/01/2019 NOTE: POOR AUDIO PSYCHOTHERAPY CONSULTATION PROGRESS NOTE TREATING ATTENDING PHYSICIAN: Jarek Gonzalez D.O. HISTORY OF PRESENT ILLNESS: The patient has diagnosis of schizoaffective disorder, bipolar type. The patient has been in labile mood and affect. He has been irritable, tearful, and today, he is tearful and crying in session. He states that he has been feeling weak. He has been feeling helpless and hopeless because he has been thinking about his family. When he thinks about his family, it makes him cry and for this reason, he cried. He has had difficulty coping and helpless. MENTAL STATUS EXAMINATION: He is alert and oriented to person, place, and time. Mood is dysphoric. Thought process is negative and catastrophic. The patient has poor attention and concentration and poor insight, judgment, and impulse control. I assessed the patient supportive psychotherapy, which has been focused on identifying positive emotions of stress and positive thoughts of feeling depression and helplessness . The cognitive behavioral therapy focused on the mood lability. thought process and thought process. negative thoughts. He is very tearful and has been crying, so the coping skills . The patient is currently and positive communication skills. Continue encouraging the patient to participate in treatment milieu. This clinician has reviewed the patient's chart and discussed the treatment with treatment team. Psychotherapy for this patient's is positive coping skills to 20 minutes. Irvin Zheng PsyD. DR: FAVIOLA JOB#: [id number] CC:
[2019-01-03] VITALS: BP 151/90
[2019-01-03 03:56] VITALS: BP 138/78
[2019-01-03] MEDS: NovoLOG Insulin Flexpen SUBQ SCH ×4 (05:51→21:00)
--- NOTE | 2019-01-03 07:28 | NUR ---
NURSE NOTES: Patient confused, on room air, no sign of distress and shortness of breath; no sign of chest pain; IV-LHand fushes well; bed at lowest position, side rails upx2, breaks engaged. call light within reach, will keep monitoring.
--- NOTE | 2019-01-03 07:30 | NUR ---
HAND-OFF: Report given to Tess Loving RN.
[2019-01-03 07:58] LABS: BASOPHILS % (AUTO) 1.6 % (0.0-2.0); EOSINOPHILS % (AUTO) 4.8 % (0.0-3.0); HEMATOCRIT 35.8 % (42.0-52.0); HEMOGLOBIN 11.2 G/DL (14.2-18.0); LYMPHOCYTES % (AUTO) 24.9 % (20.0-45.0); MEAN CORPUSCULAR VOLUME 91 FL (80-99); NEUTROPHILS % (AUTO) 57.7 % (45.0-75.0); PLATELET COUNT 272 K/UL (150-450); RED BLOOD COUNT 3.95 M/UL (4.70-6.10); RED CELL DISTRIBUTION WIDTH 15.2 % (11.6-14.8); WHITE BLOOD COUNT 6.5 K/UL (4.8-10.8)
[2019-01-03 08:00] VITALS: BP 150/86
[2019-01-03 08:17] LABS: ANION GAP 10 mmol/L (5-15); BLOOD UREA NITROGEN 27 mg/dL (7-18); CALCIUM 10.4 MG/DL (8.5-10.1); CARBON DIOXIDE 24 MMOL/L (21-32); CHLORIDE 102 MMOL/L (98-107); CREATININE 1.1 MG/DL (0.55-1.30); POTASSIUM 4.3 MMOL/L (3.5-5.1); SODIUM 135 MMOL/L (136-145)
[2019-01-03] MEDS: Benztropine 1mg tab ORAL SCH ×3 (08:47→17:24)
[2019-01-03] MEDS: Benazepril 10mg tab ORAL SCH (08:48)
[2019-01-03] MEDS: PARoxetine 10mg tab ORAL SCH (08:48)
[2019-01-03] MEDS: Heparin 5000 units/ml inj SUBQ SCH ×2 (08:50→21:21)
--- NOTE | 2019-01-03 11:36 | NUR ---
PT NOTE: Attempted to see patient for PT treatment. Patient declining to participate with PT treatment at this time, did not provide reason. Will follow up tomorrow.
[2019-01-03 12:00] VITALS: BP 144/97
--- NOTE | 2019-01-03 13:42 | General Progress Note ---
Assessment/Plan Problem List: (1) History of CVA (cerebrovascular accident) ICD Codes: Z86.73 - Personal history of transient ischemic attack (TIA), and cerebral infarction without residual deficits SNOMED: 835363999 (2) Cellulitis ICD Codes: L03.90 - Cellulitis, unspecified SNOMED: 666988373 (3) Anemia ICD Codes: D64.9 - Anemia SNOMED: 287151071 (4) Diabetes ICD Codes: E11.9 - Diabetes SNOMED: 87603887 (5) Hypertension ICD Codes: I10 - Hypertension SNOMED: 91945797 (6) Failure to thrive in adult ICD Codes: R62.7 - Adult failure to thrive SNOMED: 578107128 (7) Ulcer of left ankle ICD Codes: L97.329 - Non-pressure chronic ulcer of left ankle with unspecified severity SNOMED: 631904789, 74086827 Qualifiers: Qualified Codes: L97.322 - Non-pressure chronic ulcer of left ankle with fat layer exposed Status: stable, progressing Assessment/Plan wound care abx pain control cbc bmp am dc to snf if clear Subjective Constitutional: Reports: weakness Allergies: Coded Allergies: THIORIDAZINE (Unverified Allergy, Mild, HIVES, 04/06/15) PENICILLIN (Unverified Allergy, Unknown, 06/15/15) PENICILLINS (Unverified Allergy, Unknown, 11/24/17) All Systems: reviewed and negative except above Subjective sl foot pain Objective Last 24 Hour Vital Signs Date Time Temp Pulse Resp B/P (MAP) Pulse Ox O2 Delivery O2 Flow Rate FiO2 01/03/19 12:00 98.3 106 20 144/97 (113) 99 01/03/19 09:00 Room Air Room Air 01/03/19 08:48 150/86 01/03/19 08:48 110 150/86 01/03/19 08:00 97.5 110 19 150/86 (107) 97 01/03/19 03:56 97.4 88 20 138/78 (98) 99 01/03/19 00:00 97.1 98 20 151/90 (110) 98 01/02/19 21:00 Room Air Room Air 01/02/19 20:00 97.8 90 16 149/74 (99) 98 01/02/19 16:00 97.9 92 20 99 119/68 (85) Intake and Output 01/02/19 01/03/19 19:00 07:00 # Voids 1 2 Laboratory Tests 01/03/19 06:15: White Blood Count 6.5, Red Blood Count 3.95L, Hemoglobin 11.2L, Hematocrit 35.8L , Mean Corpuscular Volume 91, Mean Corpuscular Hemoglobin 28.3, Mean Corpuscular Hemoglobin Concent 31.1L, Red Cell Distribution Width 15.2H, Platelet Count 272, Mean Platelet Volume 6.1L, Neutrophils (%) (Auto) 57.7, Lymphocytes (%) (Auto) 24.9, Monocytes (%) (Auto) 11.0H, Eosinophils (%) (Auto) 4.8H, Basophils (%) (Auto) 1.6, Sodium Level 135L, Potassium Level 4.3, Chloride Level 102, Carbon Dioxide Level 24, Anion Gap 10, Blood Urea Nitrogen 27H, Creatinine 1.1, Estimat Glomerular Filtration Rate > 60, Glucose Level 103 , Calcium Level 10.4H Height (Feet): 5 Height (Inches): 10.00 Weight (Pounds): 174 General Appearance: lethargic EENT: normal ENT inspection Neck: normal alignment Cardiovascular: normal peripheral pulses, normal rate, regular rhythm Respiratory/Chest: chest wall non-tender, lungs clear, normal breath sounds Abdomen: normal bowel sounds, non tender, soft Extremities: normal inspection Edema: no edema noted Arm (L), no edema noted Arm (R), no edema noted Leg (L), no edema noted Leg (R), no edema noted Pedal (L), no edema noted Pedal (R), no edema noted Generalized Neurologic: motor weakness Skin: normal pigmentation, warm/dry Objective foot dressing c&d Jarek Gonzalez DO Jan 03, 2019 13:42
--- NOTE | 2019-01-03 13:51 | Infectious Diseases Prog Note ---
Assessment/Plan Assessment/Plan Assessment: L ankle ulcer- mild gavin wound cellulitis;ulcer itself not infected Wnd : Morg. M , [facility], cantor S [facility]( colonizers ) -Xray ankle: No definite acute bony process. Possible lateral soft tissue irregularity-correlate with clinical findings -Bcx neg Afebrile Mild leukocytosis; SP DM2 HTN COPD SNF resident Plan: - D/c PO Doxy d# 7 (abx 06/05) and monitor off abx IV Vancomycin #3 12/28 -s/p IV Vancomycin x1 12/26 -f/u cx -Monitor CBC/CMP, temperatures -wound care Subjective Allergies: Coded Allergies: THIORIDAZINE (Unverified Allergy, Mild, HIVES, 04/06/15) PENICILLIN (Unverified Allergy, Unknown, 06/15/15) PENICILLINS (Unverified Allergy, Unknown, 11/24/17) Subjective afebrile no leukocytosis Objective Vital Signs Last 24 Hour Vital Signs Date Time Temp Pulse Resp B/P (MAP) Pulse Ox O2 Delivery O2 Flow Rate FiO2 01/03/19 12:00 98.3 106 20 144/97 (113) 99 01/03/19 09:00 Room Air Room Air 01/03/19 08:48 150/86 01/03/19 08:48 110 150/86 01/03/19 08:00 97.5 110 19 150/86 (107) 97 01/03/19 03:56 97.4 88 20 138/78 (98) 99 01/03/19 00:00 97.1 98 20 151/90 (110) 98 01/02/19 21:00 Room Air Room Air 01/02/19 20:00 97.8 90 16 149/74 (99) 98 01/02/19 16:00 97.9 92 20 99 119/68 (85) Height (Feet): 5 Height (Inches): 10.00 Weight (Pounds): 174 Objective General Appearance: no apparent distress, alert, non-toxic HEENT: normocephalic, atraumatic bilateral eye PERRL, normal pharynx Neck: full range of motion, supple/symm/no masses Respiratory: chest non-tender, lungs clear, normal breath sounds, speaking full sentences Cardiovascular : regular rate, rhythm, no edema Gastrointestinal: normal bowel sounds, non tender, soft, non-distended, no guarding, no rebound Genitourinary: normal inspection, no CVA tenderness Musculoskeletal: back normal, gait/station normal, normal range of motion, non- tender Neurologic: alert, oriented x3, responsive, motor strength/tone normal, sensory intact, speech normal Psychiatric: judgement/insight normal, memory normal, mood/affect normal, no suicidal/homicidal ideation Skin: other - large ulcer to L ankle. surrounding erythema/induration Laboratory Tests Test 01/03/19 06:15 White Blood Count 6.5 K/UL (4.8-10.8) Red Blood Count 3.95 M/UL (4.70-6.10) L Hemoglobin 11.2 G/DL (14.2-18.0) L Hematocrit 35.8 % (42.0-52.0) L Mean Corpuscular Volume 91 FL (80-99) Mean Corpuscular Hemoglobin 28.3 PG (27.0-31.0) Mean Corpuscular Hemoglobin Concent 31.1 G/DL (32.0-36.0) L Red Cell Distribution Width 15.2 % (11.6-14.8) H Platelet Count 272 K/UL (150-450) Mean Platelet Volume 6.1 FL (6.5-10.1) L Neutrophils (%) (Auto) 57.7 % (45.0-75.0) Lymphocytes (%) (Auto) 24.9 % (20.0-45.0) Monocytes (%) (Auto) 11.0 % (1.0-10.0) H Eosinophils (%) (Auto) 4.8 % (0.0-3.0) H Basophils (%) (Auto) 1.6 % (0.0-2.0) Sodium Level 135 MMOL/L (136-145) L Potassium Level 4.3 MMOL/L (3.5-5.1) Chloride Level 102 MMOL/L (98-107) Carbon Dioxide Level 24 MMOL/L (21-32) Anion Gap 10 mmol/L (5-15) Blood Urea Nitrogen 27 mg/dL (7-18) H Creatinine 1.1 MG/DL (0.55-1.30) Estimat Glomerular Filtration Rate > 60 mL/min (>60) Glucose Level 103 MG/DL (74-106) Calcium Level 10.4 MG/DL (8.5-10.1) H Current Medications Medications (Trade) Dose Ordered Sig/Taco Route PRN Reason Start Time Stop Time Status Last Admin Dose Admin Acetaminophen (Tylenol) 650 mg Q4H PRN ORAL fever 12/26/18 19:30 01/25/19 19:29 Amlodipine Besylate (Norvasc) 10 mg DAILY ORAL 12/27/18 09:00 01/26/19 08:59 01/03/19 08:48 Benazepril HCl (Lotensin) 10 mg DAILY ORAL 12/27/18 09:00 01/26/19 08:59 01/03/19 08:48 Benztropine Mesylate (Cogentin) 1 mg THREE TIMES A DAY ORAL 12/27/18 18:00 01/26/19 17:59 01/03/19 12:24 Clonidine HCl (Catapres Tab) 0.1 mg Q6H PRN ORAL For High Blood Pressure 12/26/18 20:00 01/25/19 19:59 Clopidogrel Bisulfate (Plavix) 75 mg DAILY ORAL 12/27/18 09:00 01/26/19 08:59 01/03/19 08:48 Dextrose (Dextrose 50%) 25 ml Q30M PRN IV Hypoglycemia 12/26/18 19:45 01/25/19 19:33 Dextrose (Dextrose 50%) 50 ml Q30M PRN IV hypoglycemia 12/26/18 19:45 01/25/19 19:44 Divalproex Sodium (Depakote) 250 mg Q12HR ORAL 12/26/18 21:00 01/25/19 20:59 01/03/19 08:47 Doxycycline Monohydrate (Vibramycin) 100 mg EVERY 12 HOURS ORAL 12/28/18 18:00 01/04/19 17:59 01/03/19 08:48 Gabapentin (Neurontin) 300 mg THREE TIMES A DAY ORAL 12/27/18 09:00 01/26/19 08:59 01/03/19 12:27 Haloperidol (Haldol) 5 mg TID ORAL 12/27/18 18:00 01/26/19 17:59 01/03/19 12:24 Heparin Sodium (Porcine) (Heparin 5000 units/ml) 5,000 units EVERY 12 HOURS SUBQ 12/26/18 21:00 01/25/19 20:59 01/03/19 08:50 Insulin Aspart (NovoLOG) BEFORE MEALS AND HS SUBQ 12/26/18 21:00 01/25/19 20:59 01/03/19 12:26 Magnesium Hydroxide (Mom) 30 ml DAILYPRN PRN ORAL Constipation 12/26/18 20:00 01/25/19 19:59 Nitroglycerin (Ntg) 0.4 mg Q5M PRN SL Prn Chest Pain 12/26/18 19:30 01/25/19 19:29 01/01/19 15:18 Ondansetron HCl (Zofran) 4 mg Q6H PRN IVP Nausea & Vomiting 12/26/18 19:30 01/25/19 19:29 12/29/18 09:04 Pantoprazole (Protonix) 40 mg DAILY ORAL 12/27/18 09:00 01/26/19 08:59 01/03/19 08:47 Paroxetine HCl (Paxil) 30 mg DAILY ORAL 12/27/18 09:00 01/26/19 08:59 01/03/19 08:48 Polyethylene Glycol (Miralax) 17 gm DAILYPRN PRN ORAL Constipation 12/26/18 20:00 01/25/19 19:29 Quetiapine Fumarate (SEROquel) 100 mg THREE TIMES A DAY ORAL 12/27/18 09:00 01/26/19 08:59 01/03/19 12:24 Tamsulosin HCl (Flomax) 0.4 mg BEDTIME ORAL 12/26/18 21:00 01/25/19 20:59 01/02/19 20:32 Trazodone HCl (Desyrel) 100 mg BEDTIME ORAL 12/26/18 21:00 01/25/19 20:59 01/02/19 20:32 Mireya Campos M.D. Jan 03, 2019 13:51
--- NOTE | 2019-01-03 13:59 | Surgery Progress Note ---
Surgery Progress Note Subjective Symptoms: improved Objective Last 24 Hour Vital Signs Date Time Temp Pulse Resp B/P (MAP) Pulse Ox O2 Delivery O2 Flow Rate FiO2 01/03/19 12:00 98.3 106 20 144/97 (113) 99 01/03/19 09:00 Room Air Room Air 01/03/19 08:48 150/86 01/03/19 08:48 110 150/86 01/03/19 08:00 97.5 110 19 150/86 (107) 97 01/03/19 03:56 97.4 88 20 138/78 (98) 99 01/03/19 00:00 97.1 98 20 151/90 (110) 98 01/02/19 21:00 Room Air Room Air 01/02/19 20:00 97.8 90 16 149/74 (99) 98 01/02/19 16:00 97.9 92 20 99 119/68 (85) I&O Intake and Output 01/02/19 01/03/19 19:00 07:00 # Voids 1 2 Dressing: saturated Wound: other Cardiovascular: RSR Respiratory: clear Abdomen: soft, flat, non-tender, non-distended Extremities: tenderness, cyanosis Laboratory Tests Test 01/03/19 06:15 White Blood Count 6.5 K/UL (4.8-10.8) Red Blood Count 3.95 M/UL (4.70-6.10) L Hemoglobin 11.2 G/DL (14.2-18.0) L Hematocrit 35.8 % (42.0-52.0) L Mean Corpuscular Volume 91 FL (80-99) Mean Corpuscular Hemoglobin 28.3 PG (27.0-31.0) Mean Corpuscular Hemoglobin Concent 31.1 G/DL (32.0-36.0) L Red Cell Distribution Width 15.2 % (11.6-14.8) H Platelet Count 272 K/UL (150-450) Mean Platelet Volume 6.1 FL (6.5-10.1) L Neutrophils (%) (Auto) 57.7 % (45.0-75.0) Lymphocytes (%) (Auto) 24.9 % (20.0-45.0) Monocytes (%) (Auto) 11.0 % (1.0-10.0) H Eosinophils (%) (Auto) 4.8 % (0.0-3.0) H Basophils (%) (Auto) 1.6 % (0.0-2.0) Sodium Level 135 MMOL/L (136-145) L Potassium Level 4.3 MMOL/L (3.5-5.1) Chloride Level 102 MMOL/L (98-107) Carbon Dioxide Level 24 MMOL/L (21-32) Anion Gap 10 mmol/L (5-15) Blood Urea Nitrogen 27 mg/dL (7-18) H Creatinine 1.1 MG/DL (0.55-1.30) Estimat Glomerular Filtration Rate > 60 mL/min (>60) Glucose Level 103 MG/DL (74-106) Calcium Level 10.4 MG/DL (8.5-10.1) H Plan Problems: (1) Ulcer of left ankle Assessment & Plan: large chronic left ankle ulceration near circumferential on left ankle. full thickness with eschar on some areas and some areas of granulation tissue. no drainage. no fluctuance. tender, periwound okay. pulses diminished. calf okay. foot with decreased cap refill. please see photos Plain films noted venous duplex without dvt and patent. labs noted long discussion about wound and leg with patient. states he has no intention of having debridement, grafting, or amputation at anytime. will now allow wound to be cleaned properly. will only allow for dressing to be changed. -wash left ankle daily with NS. apply xeroform to wound, ABD, and wrap with kerlix -okay to d/c from surgical standpoint -outpatient wound care follow up thank you will follow with recs. Dveon Sullivan Jan 03, 2019 13:59
--- NOTE | 2019-01-03 15:14 | Pulmonology Progress Note ---
Assessment/Plan Problems: (1) Cellulitis (2) Severe anemia (3) Hypertension (4) UTI (urinary tract infection) (5) Schizoaffective disorder (6) Diabetes (7) History of CVA (cerebrovascular accident) Assessment/Plan doing better, no new complains in better spirit wound care IV abx check cultures symptomatic treatment respiratory treatment dvt prophylaxis. dc planning in progress Subjective ROS Limited/Unobtainable: No Constitutional: Reports: no symptoms HEENT: Repors: no symptoms Respiratory: Reports: no symptoms Allergies: Coded Allergies: THIORIDAZINE (Unverified Allergy, Mild, HIVES, 04/06/15) PENICILLIN (Unverified Allergy, Unknown, 06/15/15) PENICILLINS (Unverified Allergy, Unknown, 11/24/17) Objective Last 24 Hour Vital Signs Date Time Temp Pulse Resp B/P (MAP) Pulse Ox O2 Delivery O2 Flow Rate FiO2 01/03/19 12:00 98.3 106 20 144/97 (113) 99 01/03/19 09:00 Room Air Room Air 01/03/19 08:48 150/86 01/03/19 08:48 110 150/86 01/03/19 08:00 97.5 110 19 150/86 (107) 97 01/03/19 03:56 97.4 88 20 138/78 (98) 99 01/03/19 00:00 97.1 98 20 151/90 (110) 98 01/02/19 21:00 Room Air Room Air 01/02/19 20:00 97.8 90 16 149/74 (99) 98 01/02/19 16:00 97.9 92 20 99 119/68 (85) Intake and Output 01/02/19 01/03/19 19:00 07:00 # Voids 1 2 Objective General Appearance: WD/WN Lines, tubes and drains: peripheral HEENT: normocephalic, atraumatic Neck: non-tender, supple Respiratory/Chest: chest wall non-tender, lungs clear Breasts: no masses Cardiovascular/Chest: normal rate, no JVD Abdomen: normal bowel sounds Genitourinary/Rectal: normal genital exam, heme negative stool Extremities: normal range of motion, non-tender Skin Exam: normal pigmentation 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 II-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 Laboratory Tests 01/03/19 06:15: White Blood Count 6.5, Red Blood Count 3.95L, Hemoglobin 11.2L, Hematocrit 35.8L , Mean Corpuscular Volume 91, Mean Corpuscular Hemoglobin 28.3, Mean Corpuscular Hemoglobin Concent 31.1L, Red Cell Distribution Width 15.2H, Platelet Count 272, Mean Platelet Volume 6.1L, Neutrophils (%) (Auto) 57.7, Lymphocytes (%) (Auto) 24.9, Monocytes (%) (Auto) 11.0H, Eosinophils (%) (Auto) 4.8H, Basophils (%) (Auto) 1.6, Sodium Level 135L, Potassium Level 4.3, Chloride Level 102, Carbon Dioxide Level 24, Anion Gap 10, Blood Urea Nitrogen 27H, Creatinine 1.1, Estimat Glomerular Filtration Rate > 60, Glucose Level 103 , Calcium Level 10.4H Current Medications Medications (Trade) Dose Ordered Sig/Taco Route PRN Reason Start Time Stop Time Status Last Admin Dose Admin Acetaminophen (Tylenol) 650 mg Q4H PRN ORAL fever 12/26/18 19:30 01/25/19 19:29 Amlodipine Besylate (Norvasc) 10 mg DAILY ORAL 12/27/18 09:00 01/26/19 08:59 01/03/19 08:48 Benazepril HCl (Lotensin) 10 mg DAILY ORAL 12/27/18 09:00 01/26/19 08:59 01/03/19 08:48 Benztropine Mesylate (Cogentin) 1 mg THREE TIMES A DAY ORAL 12/27/18 18:00 01/26/19 17:59 01/03/19 12:24 Clonidine HCl (Catapres Tab) 0.1 mg Q6H PRN ORAL For High Blood Pressure 12/26/18 20:00 01/25/19 19:59 Clopidogrel Bisulfate (Plavix) 75 mg DAILY ORAL 12/27/18 09:00 01/26/19 08:59 01/03/19 08:48 Dextrose (Dextrose 50%) 25 ml Q30M PRN IV Hypoglycemia 12/26/18 19:45 01/25/19 19:33 Dextrose (Dextrose 50%) 50 ml Q30M PRN IV hypoglycemia 12/26/18 19:45 01/25/19 19:44 Divalproex Sodium (Depakote) 250 mg Q12HR ORAL 12/26/18 21:00 01/25/19 20:59 01/03/19 08:47 Gabapentin (Neurontin) 300 mg THREE TIMES A DAY ORAL 12/27/18 09:00 01/26/19 08:59 01/03/19 12:27 Haloperidol (Haldol) 5 mg TID ORAL 12/27/18 18:00 01/26/19 17:59 01/03/19 12:24 Heparin Sodium (Porcine) (Heparin 5000 units/ml) 5,000 units EVERY 12 HOURS SUBQ 12/26/18 21:00 01/25/19 20:59 01/03/19 08:50 Insulin Aspart (NovoLOG) BEFORE MEALS AND HS SUBQ 12/26/18 21:00 01/25/19 20:59 01/03/19 12:26 Magnesium Hydroxide (Mom) 30 ml DAILYPRN PRN ORAL Constipation 12/26/18 20:00 01/25/19 19:59 Nitroglycerin (Ntg) 0.4 mg Q5M PRN SL Prn Chest Pain 12/26/18 19:30 01/25/19 19:29 01/01/19 15:18 Ondansetron HCl (Zofran) 4 mg Q6H PRN IVP Nausea & Vomiting 12/26/18 19:30 01/25/19 19:29 12/29/18 09:04 Pantoprazole (Protonix) 40 mg DAILY ORAL 12/27/18 09:00 01/26/19 08:59 01/03/19 08:47 Paroxetine HCl (Paxil) 30 mg DAILY ORAL 12/27/18 09:00 01/26/19 08:59 01/03/19 08:48 Polyethylene Glycol (Miralax) 17 gm DAILYPRN PRN ORAL Constipation 12/26/18 20:00 01/25/19 19:29 Quetiapine Fumarate (SEROquel) 100 mg THREE TIMES A DAY ORAL 12/27/18 09:00 01/26/19 08:59 01/03/19 12:24 Tamsulosin HCl (Flomax) 0.4 mg BEDTIME ORAL 12/26/18 21:00 01/25/19 20:59 01/02/19 20:32 Trazodone HCl (Desyrel) 100 mg BEDTIME ORAL 12/26/18 21:00 01/25/19 20:59 01/02/19 20:32 Vanesa Skinner MD Jan 03, 2019 15:14
--- NOTE | 2019-01-03 15:45 | Progress Note ---
DATE: 01/03/2019 SUBJECTIVE: The patient is a 68-year-old male with left ankle ulcer and cellulitis. He has difficulty with ambulation, but his medical illnesses causing him to have increased mood lability due to the pain and frustration, so he has altered mental status, confusion, and paranoid delusions. That is why, his attending has requested daily psychiatric consultation. MENTAL STATUS EXAMINATION: This is a 68-year-old male. Appearance is disheveled. Attitude, irritable and agitated. Affect, guarded and restricted. Intellect poor. Mood, depressed and anxious. Motor activity, psychomotor agitation. Attention span is poor. Orientation x2. Speech is pressured. Thought process is organized and logical. Insight and judgment is poor. DIAGNOSIS: Schizoaffective, bipolar type. PLAN: Paxil 30 mg daily, Seroquel 100 mg three times a day, Neurontin 300 mg three times a day, Haldol 5 mg three times a day, Depakote 250 mg twice a day, and trazodone 100 mg at bedtime. Provided him with 20 minutes of cognitive behavioral to help him identify his automatic negative thoughts and help him convert those negative thoughts to more positive thoughts to reduce depression, anxiety, and suicidality. A 20 minutes of cognitive behavioral therapy provided. Chart reviewed. Discussed with staff. Seen and assessed at bedside. Uziel Collado M.D. DR: ROXANA JOB#: [id number] CC:
[2019-01-03 16:00] VITALS: BP 130/85
--- NOTE | 2019-01-03 17:00 | NUR ---
NURSE NOTES: Patient refused for dressing to be changed.
--- NOTE | 2019-01-03 19:30 | NUR ---
NURSE NOTES: Patient asleep in bed, no signs of pain, not in acute respiratory distress. Call light and needs in reach. Bed in lowest position, lock engaged and alarm on. Will continue to monitor.
--- NOTE | 2019-01-03 19:38 | NUR ---
HAND-OFF: Report given to OLGA Hernandez.
[2019-01-03 20:00] VITALS: BP 99/83
[2019-01-03] MEDS: Tamsulosin 0.4mg cap ORAL SCH (21:17)
[2019-01-03] MEDS: TraZODone 100mg tab ORAL SCH (21:17)
--- NOTE | 2019-01-03 21:32 | Consultation ---
DATE OF CONSULTATION: 01/02/2019 CARDIOLOGY CONSULTATION CONSULTING PHYSICIAN: Jimenez Polo M.D. REFERRING PHYSICIAN: Jarek Gonzalez D.O. REASON FOR CONSULTATION: Management of chest pain. HISTORY OF PRESENT ILLNESS: The patient is an very unfortunate 68-year-old gentleman, who presents to the hospital from intermediate facility for evaluation of alteration of left leg. He has trouble with pain in the left leg which is described as throbbing, 10/10 nonradiating. Denying any fever or chills. At the time of arrival to the hospital, he did not have any chest pain or shortness of breath. Vital signs showed blood pressure 137/76 mmHg and heart rate was 82. Laboratory finding was significant for leukocytosis with WBC count of 12.2, anemia with hemoglobin and hematocrit 9.9, hematocrit 31.9%. The patient had venous duplex of lower extremity which showed patent deep venous system bilaterally. The patient was admitted to Med/Surg unit for further evaluation and management. During his stay in Med/Surg, the patient developed chest pain for which 12-lead electrocardiogram obtained and revealed sinus rhythm at a rate of [address] and T-wave abnormalities. I was consulted by Dr. Gonzalez to assist and evaluate chest pain in this patient. PAST MEDICAL HISTORY: Includes diabetes mellitus, hypertension, left leg ulceration, COPD. ALLERGIES: Thioridazine and penicillin. SOCIAL HISTORY: Denies any tobacco, alcohol, or illicit drug use. REVIEW OF SYSTEMS: HEENT: Denies any headache, diplopia, or blurred vision. CONSTITUTIONAL: Denies any fever, chills, night sweats, or weight loss. Positive for generalized weakness. CARDIOVASCULAR: Denies any chest pain, shortness of breath, PND, orthopnea, leg swelling. PULMONARY: Denies any cough, hemoptysis, or wheezing. GASTROINTESTINAL: Denies any nausea, vomiting, diarrhea, constipation, abdominal pain, or GI bleed. GENITOURINARY: Denies any hematuria, dysuria, or incontinence. NEUROLOGY: Some peripheral neuropathy in the legs. No prior history of stroke. MUSCULOSKELETAL: Complaining of left leg pain and ulceration. MEDICATIONS: List of medication at nursing facility includes acetaminophen 650 mg q.4 h. p.r.n. pain, temperature 100.5 degrees Fahrenheit, amlodipine 10 mg p.o. daily, benazepril 10 mg p.o. daily, Cogentin 1 mg p.o. three times a day, Catapres 0.1 mg q. 6 h. p.r.n. elevated blood pressure, Plavix 75 mg p.o. daily, Depakote 250 mg q.12 hours, doxycycline 100 mg p.o. q.12 hours, Neurontin 300 mg p.o. three times a day, haloperidol 5 mg p.o. three times a day, [place] 5/325 one tablet q.6 hours p.r.n. pain, insulin aspart NovoLog q.a.c. and at bedtime, magnesium sulfate 30 mL daily as needed of constipation, Protonix 40 mg p.o. daily, Paxil 30 mg p.o. daily, MiraLAX 17 gram p.r.n. constipation, Seroquel 100 mg p.o. three times a day, tamsulosin 0.4 mg p.o. at bedtime, trazodone at 100 mg p.o. at bedtime. PHYSICAL EXAMINATION: VITAL SIGNS: Blood pressure at time of arrival to the hospital was 137/76, respirations 20, pulse of 82, temperature 97.5 degrees Fahrenheit, and O2 saturation 97% on room air. GENERAL: The patient is a very unfortunate 68-year-old gentleman, chronically ill. HEENT: Atraumatic and normocephalic. Anicteric. Pupils are equal, round, and reactive to light and accommodation. Extraocular muscles intact. NECK: JVP is less than 5 cm. No carotid bruits. Carotid upstrokes 2+ bilaterally. CARDIOVASCULAR: Normal S1, S2. Regular rate and rhythm. No murmurs, gallops, or rubs. PMI is at fourth intercostal space in the midclavicular line. LUNGS: Clear to auscultation bilaterally. ABDOMEN: Soft, nontender, and nondistended. No hepatosplenomegaly. Positive bowel sounds. EXTREMITIES: Left leg ulceration. Left heel and foot with dressing, edema surrounding the ulcerations. LABORATORY FINDINGS: WBC is 12.2, hemoglobin 9.9, hematocrit 31.9, platelet count is 261. Chemistry, sodium 135, potassium 4.5, chloride 99, bicarbonate 30, BUN 18, creatinine 1.1, glucose 76. Calcium 9.7. Troponin I is 0 and INR is 1.0. ASSESSMENT AND PLAN: The patient is an very unfortunate 68-year-old gentleman, seen in Cardiology consultation. 1. Most likely noncardiac, chest pain. The patient is currently chest pain free. A 12-lead electrocardiogram did not show any acute ischemic changes. Troponin I level has been negative. In phase of the patient's severe debilitation, I would not consider any further cardiac workup. If the chest pain is recurrent, may have to obtain 2D echocardiography. In the meantime, the patient will be continued on aspirin and statins, beta-ni for double product control. 2. History of diabetes mellitus. 3. History of hypertension. I would like to thank, Dr. Gonzalez, for allowing me to participate in the care of this patient. Jimenez Polo M.D. DR: Digna JOB#: [id number] CC:
--- NOTE | 2019-01-03 23:28 | Cardiology Progress Note ---
Assessment/Plan Assessment/Plan 1. Most likely noncardiac, chest pain. The patient is currently chest pain free. A 12-lead electrocardiogram did not show any acute ischemic changes. Troponin I level has been negative. In face of the patient's severe debilitation, I would not consider any invasive cardiac workup. If the chest pain is recurrent, we may have to obtain 2D echocardiography, continue aspirin and statins, beta-ni for double product control. 2. History of diabetes mellitus. 3. History of hypertension. Subjective Subjective No cardiac events. Objective Last 24 Hour Vital Signs Date Time Temp Pulse Resp B/P (MAP) Pulse Ox O2 Delivery O2 Flow Rate FiO2 01/03/19 21:00 Room Air Room Air 01/03/19 20:00 97.8 101 18 99/83 (88) 94 01/03/19 16:00 97.6 112 18 130/85 (100) 100 01/03/19 12:00 98.3 106 20 144/97 (113) 99 01/03/19 09:00 Room Air Room Air 01/03/19 08:48 150/86 01/03/19 08:48 110 150/86 01/03/19 08:00 97.5 110 19 150/86 (107) 97 01/03/19 03:56 97.4 88 20 138/78 (98) 99 01/03/19 00:00 97.1 98 20 151/90 (110) 98 Intake and Output 01/02/19 01/03/19 18:59 06:59 # Voids 1 2 Laboratory Tests Test 01/03/19 06:15 White Blood Count 6.5 K/UL (4.8-10.8) Red Blood Count 3.95 M/UL (4.70-6.10) L Hemoglobin 11.2 G/DL (14.2-18.0) L Hematocrit 35.8 % (42.0-52.0) L Mean Corpuscular Volume 91 FL (80-99) Mean Corpuscular Hemoglobin 28.3 PG (27.0-31.0) Mean Corpuscular Hemoglobin Concent 31.1 G/DL (32.0-36.0) L Red Cell Distribution Width 15.2 % (11.6-14.8) H Platelet Count 272 K/UL (150-450) Mean Platelet Volume 6.1 FL (6.5-10.1) L Neutrophils (%) (Auto) 57.7 % (45.0-75.0) Lymphocytes (%) (Auto) 24.9 % (20.0-45.0) Monocytes (%) (Auto) 11.0 % (1.0-10.0) H Eosinophils (%) (Auto) 4.8 % (0.0-3.0) H Basophils (%) (Auto) 1.6 % (0.0-2.0) Sodium Level 135 MMOL/L (136-145) L Potassium Level 4.3 MMOL/L (3.5-5.1) Chloride Level 102 MMOL/L (98-107) Carbon Dioxide Level 24 MMOL/L (21-32) Anion Gap 10 mmol/L (5-15) Blood Urea Nitrogen 27 mg/dL (7-18) H Creatinine 1.1 MG/DL (0.55-1.30) Estimat Glomerular Filtration Rate > 60 mL/min (>60) Glucose Level 103 MG/DL (74-106) Calcium Level 10.4 MG/DL (8.5-10.1) H Objective HEENT: Atraumatic and normocephalic. Anicteric. Pupils are equal, round, and reactive to light and accommodation. Extraocular muscles intact. NECK: JVP is less than 5 cm. No carotid bruits. Carotid upstrokes 2+ bilaterally. CARDIOVASCULAR: Normal S1, S2. Regular rate and rhythm. No murmurs, gallops, or rubs. PMI is at fourth intercostal space in the midclavicular line. LUNGS: Clear to auscultation bilaterally. ABDOMEN: Soft, nontender, and nondistended. No hepatosplenomegaly. Positive bowel sounds. EXTREMITIES: Left leg ulceration. Left heel and foot with dressing, edema surrounding the ulcerations. Jimenez Polo MD Jan 03, 2019 23:28
[2019-01-04] VITALS: BP 102/66
[2019-01-04 04:00] VITALS: BP 131/60
[2019-01-04] MEDS: NovoLOG Insulin Flexpen SUBQ SCH ×4 (05:37→20:59)
--- NOTE | 2019-01-04 06:00 | NUR ---
NURSE NOTES: Dressing changed.
[2019-01-04 07:20] LABS: BASOPHILS % (AUTO) 0.7 % (0.0-2.0); EOSINOPHILS % (AUTO) 2.7 % (0.0-3.0); HEMATOCRIT 37.6 % (42.0-52.0); HEMOGLOBIN 11.9 G/DL (14.2-18.0); LYMPHOCYTES % (AUTO) 22.3 % (20.0-45.0); MEAN CORPUSCULAR VOLUME 89 FL (80-99); MONOCYTES % (AUTO) 13.5 % (1.0-10.0); NEUTROPHILS % (AUTO) 60.8 % (45.0-75.0); PLATELET COUNT 273 K/UL (150-450); RED BLOOD COUNT 4.21 M/UL (4.70-6.10); RED CELL DISTRIBUTION WIDTH 14.5 % (11.6-14.8); WHITE BLOOD COUNT 8.8 K/UL (4.8-10.8)
--- NOTE | 2019-01-04 07:20 | NUR ---
HAND-OFF: Report given to OLGA Longoria.
[2019-01-04 07:39] LABS: ANION GAP 8 mmol/L (5-15); BLOOD UREA NITROGEN 30 mg/dL (7-18); CALCIUM 10.9 MG/DL (8.5-10.1); CARBON DIOXIDE 28 MMOL/L (21-32); CHLORIDE 101 MMOL/L (98-107); CREATININE 1.2 MG/DL (0.55-1.30); POTASSIUM 5.3 MMOL/L (3.5-5.1); SODIUM 137 MMOL/L (136-145)
[2019-01-04 08:00] VITALS: BP 126/83
--- NOTE | 2019-01-04 08:30 | NUR ---
NURSE NOTES: received patient awake no sign of distress, denies pain, on fall precaution , Call light and needs in reach. Bed in lowest position, lock engaged and alarm on. Will continue to monitor. samuel roper
[2019-01-04] MEDS: Heparin 5000 units/ml inj SUBQ SCH ×2 (09:00→20:58)
[2019-01-04] MEDS: PARoxetine 10mg tab ORAL SCH (09:00)
[2019-01-04] MEDS: Benazepril 10mg tab ORAL SCH (09:01)
[2019-01-04] MEDS: Benztropine 1mg tab ORAL SCH ×3 (09:01→17:25)
[2019-01-04 12:11] VITALS: BP 119/76
--- NOTE | 2019-01-04 12:24 | Surgery Progress Note ---
Surgery Progress Note Subjective Additional Comments no acute events. BUN/Cr improved. hyperK. exam unchanged. afebrile, HD stable. comfortable. Objective Last 24 Hour Vital Signs Date Time Temp Pulse Resp B/P (MAP) Pulse Ox O2 Delivery O2 Flow Rate FiO2 01/04/19 12:11 98.6 104 18 119/76 (90) 99 01/04/19 09:01 131/60 01/04/19 09:01 88 131/60 01/04/19 08:40 Room Air Room Air 01/04/19 08:00 97.7 110 18 126/83 (97) 98 01/04/19 04:00 97.9 88 18 131/60 (83) 94 01/04/19 00:00 97.7 78 18 102/66 (78) 93 01/03/19 21:00 Room Air Room Air 01/03/19 20:00 97.8 101 18 99/83 (88) 94 01/03/19 16:00 97.6 112 18 130/85 (100) 100 I&O Intake and Output 01/03/19 01/04/19 19:00 07:00 Intake Total 480 ml Balance 480 ml Intake Oral 480 ml # Voids 4 Dressing: saturated Wound: other Drains: none Cardiovascular: RSR Respiratory: clear Abdomen: soft, non-tender, present bowel sounds, non-distended Extremities: tenderness, cyanosis, other Laboratory Tests Test 01/04/19 05:25 White Blood Count 8.8 K/UL (4.8-10.8) Red Blood Count 4.21 M/UL (4.70-6.10) L Hemoglobin 11.9 G/DL (14.2-18.0) L Hematocrit 37.6 % (42.0-52.0) L Mean Corpuscular Volume 89 FL (80-99) Mean Corpuscular Hemoglobin 28.2 PG (27.0-31.0) Mean Corpuscular Hemoglobin Concent 31.6 G/DL (32.0-36.0) L Red Cell Distribution Width 14.5 % (11.6-14.8) Platelet Count 273 K/UL (150-450) Mean Platelet Volume 7.4 FL (6.5-10.1) Neutrophils (%) (Auto) 60.8 % (45.0-75.0) Lymphocytes (%) (Auto) 22.3 % (20.0-45.0) Monocytes (%) (Auto) 13.5 % (1.0-10.0) H Eosinophils (%) (Auto) 2.7 % (0.0-3.0) Basophils (%) (Auto) 0.7 % (0.0-2.0) Sodium Level 137 MMOL/L (136-145) Potassium Level 5.3 MMOL/L (3.5-5.1) H Chloride Level 101 MMOL/L (98-107) Carbon Dioxide Level 28 MMOL/L (21-32) Anion Gap 8 mmol/L (5-15) Blood Urea Nitrogen 30 mg/dL (7-18) H Creatinine 1.2 MG/DL (0.55-1.30) Estimat Glomerular Filtration Rate > 60 mL/min (>60) Glucose Level 92 MG/DL (74-106) Calcium Level 10.9 MG/DL (8.5-10.1) H Plan Problems: (1) Ulcer of left ankle Assessment & Plan: large chronic left ankle ulceration near circumferential on left ankle. full thickness with eschar on some areas and some areas of granulation tissue. no drainage. no fluctuance. tender, periwound okay. pulses diminished. calf okay. foot with decreased cap refill. please see photos Plain films noted venous duplex without dvt and patent. labs noted long discussion about wound and leg with patient. states he has no intention of having debridement, grafting, or amputation at anytime. will now allow wound to be cleaned properly. will only allow for dressing to be changed. -wash left ankle daily with NS. apply xeroform to wound, ABD, and wrap with kerlix -okay to d/c from surgical standpoint -outpatient wound care follow up thank you will follow with recs. Devon Sullivan Jan 04, 2019 12:24
--- NOTE | 2019-01-04 13:02 | Infectious Diseases Prog Note ---
Assessment/Plan Assessment/Plan Assessment: L ankle ulcer- mild gavin wound cellulitis;ulcer itself not infected Wnd : Morg. M , [facility], [facility] S [facility]( colonizers ) -Xray ankle: No definite acute bony process. Possible lateral soft tissue irregularity-correlate with clinical findings -Bcx neg Afebrile Mild leukocytosis; SP DM2 HTN COPD SNF resident Plan: -Continue to monitor off abx -01/03 SP Doxycycline #7 IV Vancomycin #3 12/28 -s/p IV Vancomycin x1 12/26 -f/u cx -Monitor CBC/CMP, temperatures -wound care Subjective Allergies: Coded Allergies: THIORIDAZINE (Unverified Allergy, Mild, HIVES, 04/06/15) PENICILLIN (Unverified Allergy, Unknown, 06/15/15) PENICILLINS (Unverified Allergy, Unknown, 11/24/17) Subjective afebrile no leukocytosis off abx now Objective Vital Signs Last 24 Hour Vital Signs Date Time Temp Pulse Resp B/P (MAP) Pulse Ox O2 Delivery O2 Flow Rate FiO2 01/04/19 12:11 98.6 104 18 119/76 (90) 99 01/04/19 09:01 131/60 01/04/19 09:01 88 131/60 01/04/19 08:40 Room Air Room Air 01/04/19 08:00 97.7 110 18 126/83 (97) 98 01/04/19 04:00 97.9 88 18 131/60 (83) 94 01/04/19 00:00 97.7 78 18 102/66 (78) 93 01/03/19 21:00 Room Air Room Air 01/03/19 20:00 97.8 101 18 99/83 (88) 94 01/03/19 16:00 97.6 112 18 130/85 (100) 100 Height (Feet): 5 Height (Inches): 10.00 Weight (Pounds): 174 Objective General Appearance: no apparent distress, alert, non-toxic HEENT: normocephalic, atraumatic bilateral eye PERRL, normal pharynx Neck: full range of motion, supple/symm/no masses Respiratory: chest non-tender, lungs clear, normal breath sounds, speaking full sentences Cardiovascular : regular rate, rhythm, no edema Gastrointestinal: normal bowel sounds, non tender, soft, non-distended, no guarding, no rebound Genitourinary: normal inspection, no CVA tenderness Musculoskeletal: back normal, gait/station normal, normal range of motion, non- tender Neurologic: alert, oriented x3, responsive, motor strength/tone normal, sensory intact, speech normal Psychiatric: judgement/insight normal, memory normal, mood/affect normal, no suicidal/homicidal ideation Skin: other - large ulcer to L ankle. surrounding erythema/induration Laboratory Tests Test 01/04/19 05:25 White Blood Count 8.8 K/UL (4.8-10.8) Red Blood Count 4.21 M/UL (4.70-6.10) L Hemoglobin 11.9 G/DL (14.2-18.0) L Hematocrit 37.6 % (42.0-52.0) L Mean Corpuscular Volume 89 FL (80-99) Mean Corpuscular Hemoglobin 28.2 PG (27.0-31.0) Mean Corpuscular Hemoglobin Concent 31.6 G/DL (32.0-36.0) L Red Cell Distribution Width 14.5 % (11.6-14.8) Platelet Count 273 K/UL (150-450) Mean Platelet Volume 7.4 FL (6.5-10.1) Neutrophils (%) (Auto) 60.8 % (45.0-75.0) Lymphocytes (%) (Auto) 22.3 % (20.0-45.0) Monocytes (%) (Auto) 13.5 % (1.0-10.0) H Eosinophils (%) (Auto) 2.7 % (0.0-3.0) Basophils (%) (Auto) 0.7 % (0.0-2.0) Sodium Level 137 MMOL/L (136-145) Potassium Level 5.3 MMOL/L (3.5-5.1) H Chloride Level 101 MMOL/L (98-107) Carbon Dioxide Level 28 MMOL/L (21-32) Anion Gap 8 mmol/L (5-15) Blood Urea Nitrogen 30 mg/dL (7-18) H Creatinine 1.2 MG/DL (0.55-1.30) Estimat Glomerular Filtration Rate > 60 mL/min (>60) Glucose Level 92 MG/DL (74-106) Calcium Level 10.9 MG/DL (8.5-10.1) H Current Medications Medications (Trade) Dose Ordered Sig/Taco Route PRN Reason Start Time Stop Time Status Last Admin Dose Admin Acetaminophen (Tylenol) 650 mg Q4H PRN ORAL fever 12/26/18 19:30 01/25/19 19:29 Amlodipine Besylate (Norvasc) 10 mg DAILY ORAL 12/27/18 09:00 01/26/19 08:59 01/04/19 09:01 Benazepril HCl (Lotensin) 10 mg DAILY ORAL 12/27/18 09:00 01/26/19 08:59 01/04/19 09:01 Benztropine Mesylate (Cogentin) 1 mg THREE TIMES A DAY ORAL 12/27/18 18:00 01/26/19 17:59 01/04/19 12:16 Clonidine HCl (Catapres Tab) 0.1 mg Q6H PRN ORAL For High Blood Pressure 12/26/18 20:00 01/25/19 19:59 Clopidogrel Bisulfate (Plavix) 75 mg DAILY ORAL 12/27/18 09:00 01/26/19 08:59 01/04/19 08:59 Dextrose (Dextrose 50%) 25 ml Q30M PRN IV Hypoglycemia 12/26/18 19:45 01/25/19 19:33 Dextrose (Dextrose 50%) 50 ml Q30M PRN IV hypoglycemia 12/26/18 19:45 01/25/19 19:44 Divalproex Sodium (Depakote) 250 mg Q12HR ORAL 12/26/18 21:00 01/25/19 20:59 01/04/19 08:59 Gabapentin (Neurontin) 300 mg THREE TIMES A DAY ORAL 12/27/18 09:00 01/26/19 08:59 01/04/19 12:16 Haloperidol (Haldol) 5 mg TID ORAL 12/27/18 18:00 01/26/19 17:59 01/04/19 12:16 Heparin Sodium (Porcine) (Heparin 5000 units/ml) 5,000 units EVERY 12 HOURS SUBQ 12/26/18 21:00 01/25/19 20:59 01/04/19 09:00 Insulin Aspart (NovoLOG) BEFORE MEALS AND HS SUBQ 12/26/18 21:00 01/25/19 20:59 01/03/19 17:26 Magnesium Hydroxide (Mom) 30 ml DAILYPRN PRN ORAL Constipation 12/26/18 20:00 01/25/19 19:59 Nitroglycerin (Ntg) 0.4 mg Q5M PRN SL Prn Chest Pain 12/26/18 19:30 01/25/19 19:29 01/01/19 15:18 Ondansetron HCl (Zofran) 4 mg Q6H PRN IVP Nausea & Vomiting 12/26/18 19:30 01/25/19 19:29 12/29/18 09:04 Pantoprazole (Protonix) 40 mg DAILY ORAL 12/27/18 09:00 01/26/19 08:59 01/04/19 09:01 Paroxetine HCl (Paxil) 30 mg DAILY ORAL 12/27/18 09:00 01/26/19 08:59 01/04/19 09:00 Polyethylene Glycol (Miralax) 17 gm DAILYPRN PRN ORAL Constipation 12/26/18 20:00 01/25/19 19:29 Quetiapine Fumarate (SEROquel) 100 mg THREE TIMES A DAY ORAL 12/27/18 09:00 01/26/19 08:59 01/04/19 12:16 Tamsulosin HCl (Flomax) 0.4 mg BEDTIME ORAL 12/26/18 21:00 01/25/19 20:59 01/03/19 21:17 Trazodone HCl (Desyrel) 100 mg BEDTIME ORAL 12/26/18 21:00 01/25/19 20:59 01/03/19 21:17 Mireya Campos M.D. Jan 04, 2019 13:02
--- NOTE | 2019-01-04 13:10 | Pulmonology Progress Note ---
Assessment/Plan Problems: (1) Cellulitis (2) Severe anemia (3) Hypertension (4) UTI (urinary tract infection) (5) Schizoaffective disorder (6) Diabetes (7) History of CVA (cerebrovascular accident) Assessment/Plan all reviewed doing better, no new complains in better spirit wound care IV abx check cultures symptomatic treatment respiratory treatment dvt prophylaxis. dc planning in progress Subjective ROS Limited/Unobtainable: No Constitutional: Reports: no symptoms HEENT: Repors: no symptoms Respiratory: Reports: no symptoms Allergies: Coded Allergies: THIORIDAZINE (Unverified Allergy, Mild, HIVES, 04/06/15) PENICILLIN (Unverified Allergy, Unknown, 06/15/15) PENICILLINS (Unverified Allergy, Unknown, 11/24/17) Objective Last 24 Hour Vital Signs Date Time Temp Pulse Resp B/P (MAP) Pulse Ox O2 Delivery O2 Flow Rate FiO2 01/04/19 12:11 98.6 104 18 119/76 (90) 99 01/04/19 09:01 131/60 01/04/19 09:01 88 131/60 01/04/19 08:40 Room Air Room Air 01/04/19 08:00 97.7 110 18 126/83 (97) 98 01/04/19 04:00 97.9 88 18 131/60 (83) 94 01/04/19 00:00 97.7 78 18 102/66 (78) 93 01/03/19 21:00 Room Air Room Air 01/03/19 20:00 97.8 101 18 99/83 (88) 94 01/03/19 16:00 97.6 112 18 130/85 (100) 100 Intake and Output 01/03/19 01/04/19 19:00 07:00 Intake Total 480 ml Balance 480 ml Intake Oral 480 ml # Voids 4 Objective General Appearance: WD/WN Lines, tubes and drains: peripheral HEENT: normocephalic, atraumatic Neck: non-tender, supple Respiratory/Chest: chest wall non-tender, lungs clear Breasts: no masses Cardiovascular/Chest: normal rate, no JVD Abdomen: normal bowel sounds Genitourinary/Rectal: normal genital exam, heme negative stool Extremities: normal range of motion, non-tender Skin Exam: normal pigmentation Neurologic: compounder II-XII 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 Laboratory Tests 01/04/19 05:25: White Blood Count 8.8, Red Blood Count 4.21L, Hemoglobin 11.9L, Hematocrit 37.6L , Mean Corpuscular Volume 89, Mean Corpuscular Hemoglobin 28.2, Mean Corpuscular Hemoglobin Concent 31.6L, Red Cell Distribution Width 14.5, Platelet Count 273, Mean Platelet Volume 7.4, Neutrophils (%) (Auto) 60.8, Lymphocytes (%) (Auto) 22.3, Monocytes (%) (Auto) 13.5H, Eosinophils (%) (Auto) 2.7, Basophils (%) (Auto) 0.7, Sodium Level 137, Potassium Level 5.3H, Chloride Level 101, Carbon Dioxide Level 28, Anion Gap 8, Blood Urea Nitrogen 30H, Creatinine 1.2, Estimat Glomerular Filtration Rate > 60, Glucose Level 92, Calcium Level 10.9H Current Medications Medications (Trade) Dose Ordered Sig/Taco Route PRN Reason Start Time Stop Time Status Last Admin Dose Admin Acetaminophen (Tylenol) 650 mg Q4H PRN ORAL fever 12/26/18 19:30 01/25/19 19:29 Amlodipine Besylate (Norvasc) 10 mg DAILY ORAL 12/27/18 09:00 01/26/19 08:59 01/04/19 09:01 Benazepril HCl (Lotensin) 10 mg DAILY ORAL 12/27/18 09:00 01/26/19 08:59 01/04/19 09:01 Benztropine Mesylate (Cogentin) 1 mg THREE TIMES A DAY ORAL 12/27/18 18:00 01/26/19 17:59 01/04/19 12:16 Clonidine HCl (Catapres Tab) 0.1 mg Q6H PRN ORAL For High Blood Pressure 12/26/18 20:00 01/25/19 19:59 Clopidogrel Bisulfate (Plavix) 75 mg DAILY ORAL 12/27/18 09:00 01/26/19 08:59 01/04/19 08:59 Dextrose (Dextrose 50%) 25 ml Q30M PRN IV Hypoglycemia 12/26/18 19:45 01/25/19 19:33 Dextrose (Dextrose 50%) 50 ml Q30M PRN IV hypoglycemia 12/26/18 19:45 01/25/19 19:44 Divalproex Sodium (Depakote) 250 mg Q12HR ORAL 12/26/18 21:00 01/25/19 20:59 01/04/19 08:59 Gabapentin (Neurontin) 300 mg THREE TIMES A DAY ORAL 12/27/18 09:00 01/26/19 08:59 01/04/19 12:16 Haloperidol (Haldol) 5 mg TID ORAL 12/27/18 18:00 01/26/19 17:59 01/04/19 12:16 Heparin Sodium (Porcine) (Heparin 5000 units/ml) 5,000 units EVERY 12 HOURS SUBQ 12/26/18 21:00 01/25/19 20:59 01/04/19 09:00 Insulin Aspart (NovoLOG) BEFORE MEALS AND HS SUBQ 12/26/18 21:00 01/25/19 20:59 01/03/19 17:26 Magnesium Hydroxide (Mom) 30 ml DAILYPRN PRN ORAL Constipation 12/26/18 20:00 01/25/19 19:59 Nitroglycerin (Ntg) 0.4 mg Q5M PRN SL Prn Chest Pain 12/26/18 19:30 01/25/19 19:29 01/01/19 15:18 Ondansetron HCl (Zofran) 4 mg Q6H PRN IVP Nausea & Vomiting 12/26/18 19:30 01/25/19 19:29 12/29/18 09:04 Pantoprazole (Protonix) 40 mg DAILY ORAL 12/27/18 09:00 01/26/19 08:59 01/04/19 09:01 Paroxetine HCl (Paxil) 30 mg DAILY ORAL 12/27/18 09:00 01/26/19 08:59 01/04/19 09:00 Polyethylene Glycol (Miralax) 17 gm DAILYPRN PRN ORAL Constipation 12/26/18 20:00 01/25/19 19:29 Quetiapine Fumarate (SEROquel) 100 mg THREE TIMES A DAY ORAL 12/27/18 09:00 01/26/19 08:59 01/04/19 12:16 Tamsulosin HCl (Flomax) 0.4 mg BEDTIME ORAL 12/26/18 21:00 01/25/19 20:59 01/03/19 21:17 Trazodone HCl (Desyrel) 100 mg BEDTIME ORAL 12/26/18 21:00 01/25/19 20:59 01/03/19 21:17 Vanesa Skniner MD Jan 04, 2019 13:10
--- NOTE | 2019-01-04 13:24 | General Progress Note ---
Assessment/Plan Problem List: (1) History of CVA (cerebrovascular accident) ICD Codes: Z86.73 - Personal history of transient ischemic attack (TIA), and cerebral infarction without residual deficits SNOMED: 247981983 (2) Cellulitis ICD Codes: L03.90 - Cellulitis, unspecified SNOMED: 411415040 (3) Anemia ICD Codes: D64.9 - Anemia SNOMED: 659592172 (4) Diabetes ICD Codes: E11.9 - Diabetes SNOMED: 92452063 (5) Hypertension ICD Codes: I10 - Hypertension SNOMED: 98009069 (6) Failure to thrive in adult ICD Codes: R62.7 - Adult failure to thrive SNOMED: 742676636 (7) Ulcer of left ankle ICD Codes: L97.329 - Non-pressure chronic ulcer of left ankle with unspecified severity SNOMED: 634701891, 03320333 Qualifiers: Qualified Codes: L97.322 - Non-pressure chronic ulcer of left ankle with fat layer exposed Status: unchanged Assessment/Plan wound care abx pain control cbc bmp am dc to snf if clear Subjective Constitutional: Reports: weakness Allergies: Coded Allergies: THIORIDAZINE (Unverified Allergy, Mild, HIVES, 04/06/15) PENICILLIN (Unverified Allergy, Unknown, 06/15/15) PENICILLINS (Unverified Allergy, Unknown, 11/24/17) All Systems: reviewed and negative except above Subjective sl foot pain Objective Last 24 Hour Vital Signs Date Time Temp Pulse Resp B/P (MAP) Pulse Ox O2 Delivery O2 Flow Rate FiO2 01/04/19 12:11 98.6 104 18 119/76 (90) 99 01/04/19 09:01 131/60 01/04/19 09:01 88 131/60 01/04/19 08:40 Room Air Room Air 01/04/19 08:00 97.7 110 18 126/83 (97) 98 01/04/19 04:00 97.9 88 18 131/60 (83) 94 01/04/19 00:00 97.7 78 18 102/66 (78) 93 01/03/19 21:00 Room Air Room Air 01/03/19 20:00 97.8 101 18 99/83 (88) 94 01/03/19 16:00 97.6 112 18 130/85 (100) 100 Intake and Output 01/03/19 01/04/19 19:00 07:00 Intake Total 480 ml Balance 480 ml Intake Oral 480 ml # Voids 4 Laboratory Tests 01/04/19 05:25: White Blood Count 8.8, Red Blood Count 4.21L, Hemoglobin 11.9L, Hematocrit 37.6L , Mean Corpuscular Volume 89, Mean Corpuscular Hemoglobin 28.2, Mean Corpuscular Hemoglobin Concent 31.6L, Red Cell Distribution Width 14.5, Platelet Count 273, Mean Platelet Volume 7.4, Neutrophils (%) (Auto) 60.8, Lymphocytes (%) (Auto) 22.3, Monocytes (%) (Auto) 13.5H, Eosinophils (%) (Auto) 2.7, Basophils (%) (Auto) 0.7, Sodium Level 137, Potassium Level 5.3H, Chloride Level 101, Carbon Dioxide Level 28, Anion Gap 8, Blood Urea Nitrogen 30H, Creatinine 1.2, Estimat Glomerular Filtration Rate > 60, Glucose Level 92, Calcium Level 10.9H Height (Feet): 5 Height (Inches): 10.00 Weight (Pounds): 174 General Appearance: lethargic EENT: normal ENT inspection Neck: normal alignment Cardiovascular: normal peripheral pulses, normal rate, regular rhythm Respiratory/Chest: chest wall non-tender, lungs clear, normal breath sounds Abdomen: normal bowel sounds, non tender, soft Extremities: normal inspection Edema: no edema noted Arm (L), no edema noted Arm (R), no edema noted Leg (L), no edema noted Leg (R), no edema noted Pedal (L), no edema noted Pedal (R), no edema noted Generalized Neurologic: responsive, motor weakness Skin: normal pigmentation, warm/dry Objective foot dressing c&d Jarek Gonzalez DO Jan 04, 2019 13:24
[2019-01-04 16:00] VITALS: BP 119/76
--- NOTE | 2019-01-04 16:04 | NUR ---
WINDOW TINTERTRACK SUPERINTENDENT SI:LEFT ANKLE ULCER . CELLULITIS VS: BP 119/76, P 110, T 97.7, RR 18, SpO2 93 RBC 4.21, Hgb 11.9, Hct 37.6, K 5.3, BUN 30, Ca 10.9 IS:Haldol Sofiyaentin Norvasc Lotensin Plavix Gabapentin Protonix Paxil Seroquel Depakote Heparin NovoLog MED/SURG
--- NOTE | 2019-01-04 19:31 | Progress Note ---
DATE: 01/04/2019 SUBJECTIVE: This is a 68-year-old male patient. He continues to have some mood lability, confusion, disorganized thought process, and hyperverbal. His mood lability is worsened due to his left ankle ulcer. MENTAL STATUS EXAMINATION: The patient is 68-year-old male. Appearance is disheveled. Attitude, irritable and agitated. Affect, guarded and restricted. Intellect, poor. Mood, depressed and anxious. Motor activity, psychomotor agitation. Attention span is poor. Orientation x2. Speech is pressured. Thought process, disorganized and illogical. Insight and judgment is poor. DIAGNOSIS: Schizoaffective, bipolar type. PLAN: Haldol 5 mg three times a day, three times a day, Seroquel three times a day, Depakote 250 mg twice a day, Neurontin 300 mg three times a day, Paxil 30 mg daily, and trazodone 100 mg nightly. Provided him with 20 minutes of cognitive behavioral to help him identify his automatic negative thoughts and help him convert those negative thoughts to more positive thoughts to reduce depression, anxiety, and mood lability. Chart reviewed. Discussed with staff. A 20 minutes of cognitive behavioral therapy provided. Uziel Collado M.D. DR: BREANNE JOB#: [id number] CC:
--- NOTE | 2019-01-04 19:42 | NUR ---
HAND-OFF: Report given to OLGA RONQUILLO.
--- NOTE | 2019-01-04 19:52 | NUR ---
NURSE NOTES: Received patient awake,verbal,resting,follows simple command,no complaints.
[2019-01-04 20:00] VITALS: BP 128/83
[2019-01-04] MEDS: Tamsulosin 0.4mg cap ORAL SCH (20:57)
[2019-01-04] MEDS: TraZODone 100mg tab ORAL SCH (20:57)
--- NOTE | 2019-01-04 21:20 | NUR ---
NURSE NOTES: Wound dressing clean,dry, and intact.
[2019-01-05 00:36] VITALS: BP 121/80
[2019-01-05 04:00] VITALS: BP 132/86
[2019-01-05] MEDS: NovoLOG Insulin Flexpen SUBQ SCH ×4 (06:08→21:00)
[2019-01-05 06:45] LABS: ANION GAP 7 mmol/L (5-15); BASOPHILS % (AUTO) 0.6 % (0.0-2.0); BLOOD UREA NITROGEN 34 mg/dL (7-18); CALCIUM 11.1 MG/DL (8.5-10.1); CARBON DIOXIDE 29 MMOL/L (21-32); CHLORIDE 102 MMOL/L (98-107); CREATININE 1.2 MG/DL (0.55-1.30); EOSINOPHILS % (AUTO) 3.2 % (0.0-3.0); HEMATOCRIT 38.3 % (42.0-52.0); HEMOGLOBIN 12.1 G/DL (14.2-18.0); LYMPHOCYTES % (AUTO) 23.7 % (20.0-45.0); MEAN CORPUSCULAR VOLUME 90 FL (80-99); MONOCYTES % (AUTO) 13.8 % (1.0-10.0); NEUTROPHILS % (AUTO) 58.7 % (45.0-75.0); PLATELET COUNT 284 K/UL (150-450); POTASSIUM 5.6 MMOL/L (3.5-5.1); RED BLOOD COUNT 4.26 M/UL (4.70-6.10); SODIUM 138 MMOL/L (136-145); WHITE BLOOD COUNT 9.2 K/UL (4.8-10.8)
--- NOTE | 2019-01-05 07:35 | NUR ---
HAND-OFF: Report given to Melissa Aiken LVN.
--- NOTE | 2019-01-05 07:35 | Pulmonology Progress Note ---
Assessment/Plan Assessment/Plan ASSESSMENT Left ankle ulcer ( not infected) L ankle cellulitis ( gavin-wound) COPD HTN DM Non-cardiac CP Anemia Schizoaffective bipolar type PLAN OF CARE [facility] floor serial troponin negative, EKG revealed no acute ischemic changes ; patient was ruled out for acute DC per cardio CP noncardiac continue Plavix no invasive cardiac workup was recommended by cardio BP management with CCB and JOSH Venous duplex BLE begative O2 titrate to keep pulse ox above 92 %; pulmonary toilet prn; no signs of respiratory distress CXR - no acute cardiopulmonary pathology completed a course of abx blood cx negative ID recommended monitor off abx, remains afebrile, no leukocytosis wound care as per surgery recommendation DVT /GI prophylaxis BS management with SSI bowel regimen pain management monitor H&H with goal to keep hemoglobin above 7 , remains at range CEA minimally elevated- 5.1 psychiatric medication regimen was optimized as per psychiatrist hyperkalemia for 2 days, rising potassium - 5.6 today give Kayexalate hyperkalemia possibly due to JOSH, if persist may consider to discontinue JOSH case discussed and evaluated by supervising physician Subjective Allergies: Coded Allergies: THIORIDAZINE (Unverified Allergy, Mild, HIVES, 04/06/15) PENICILLIN (Unverified Allergy, Unknown, 06/15/15) PENICILLINS (Unverified Allergy, Unknown, 11/24/17) Subjective remains afebrile, no leucocytosis no signs of resp distress K-5.6 Objective Last 24 Hour Vital Signs Date Time Temp Pulse Resp B/P (MAP) Pulse Ox O2 Delivery O2 Flow Rate FiO2 01/05/19 04:00 97.3 109 16 132/86 (101) 97 01/05/19 00:36 96.8 110 18 121/80 (94) 98 01/04/19 21:00 Room Air Room Air 01/04/19 20:00 97.5 117 18 128/83 (98) 99 01/04/19 16:00 97.5 108 18 119/76 (90) 99 01/04/19 12:11 98.6 104 18 119/76 (90) 99 01/04/19 09:01 131/60 01/04/19 09:01 88 131/60 01/04/19 08:40 Room Air Room Air 01/04/19 08:00 97.7 110 18 126/83 (97) 98 Intake and Output 01/04/19 01/05/19 19:00 07:00 Intake Total 480 ml Balance 480 ml Intake Oral 480 ml General Appearance: no acute distress, other - awake, alert, AA male HEENT: normocephalic, atraumatic, anicteric Respiratory/Chest: lungs clear, no respiratory distress, no accessory muscle use Cardiovascular: normal peripheral pulses, normal rate Abdomen: soft, non tender, non distended Extremities: no edema Skin: ulcers - left ankle ulcer , not infected , periwound with mild erythema, edema, no drainage, TTP, with dressing over ulcer -, C/D/I Neurologic/Psychiatric: abnormal gait, alert - responsive , other - moves all extremities Laboratory Tests 01/05/19 05:10: White Blood Count 9.2, Red Blood Count 4.26L, Hemoglobin 12.1L, Hematocrit 38.3L , Mean Corpuscular Volume 90, Mean Corpuscular Hemoglobin 28.4, Mean Corpuscular Hemoglobin Concent 31.6L, Red Cell Distribution Width 15.0H, Platelet Count 284, Mean Platelet Volume 7.6, Neutrophils (%) (Auto) 58.7, Lymphocytes (%) (Auto) 23.7, Monocytes (%) (Auto) 13.8H, Eosinophils (%) (Auto) 3.2H, Basophils (%) (Auto) 0.6, Sodium Level 138, Potassium Level 5.6H, Chloride Level 102, Carbon Dioxide Level 29, Anion Gap 7, Blood Urea Nitrogen 34H, Creatinine 1.2, Estimat Glomerular Filtration Rate > 60, Glucose Level 100 , Calcium Level 11.1H Current Medications Medications (Trade) Dose Ordered Sig/Taco Route PRN Reason Start Time Stop Time Status Last Admin Dose Admin Acetaminophen (Tylenol) 650 mg Q4H PRN ORAL fever 12/26/18 19:30 01/25/19 19:29 Amlodipine Besylate (Norvasc) 10 mg DAILY ORAL 12/27/18 09:00 01/26/19 08:59 01/04/19 09:01 Benazepril HCl (Lotensin) 10 mg DAILY ORAL 12/27/18 09:00 01/26/19 08:59 01/04/19 09:01 Benztropine Mesylate (Cogentin) 1 mg THREE TIMES A DAY ORAL 12/27/18 18:00 01/26/19 17:59 01/04/19 17:25 Clonidine HCl (Catapres Tab) 0.1 mg Q6H PRN ORAL For High Blood Pressure 12/26/18 20:00 01/25/19 19:59 Clopidogrel Bisulfate (Plavix) 75 mg DAILY ORAL 12/27/18 09:00 01/26/19 08:59 01/04/19 08:59 Dextrose (Dextrose 50%) 25 ml Q30M PRN IV Hypoglycemia 12/26/18 19:45 01/25/19 19:33 Dextrose (Dextrose 50%) 50 ml Q30M PRN IV hypoglycemia 12/26/18 19:45 01/25/19 19:44 Divalproex Sodium (Depakote) 250 mg Q12HR ORAL 12/26/18 21:00 01/25/19 20:59 01/04/19 20:58 Gabapentin (Neurontin) 300 mg THREE TIMES A DAY ORAL 12/27/18 09:00 01/26/19 08:59 01/04/19 17:25 Haloperidol (Haldol) 5 mg TID ORAL 12/27/18 18:00 01/26/19 17:59 01/04/19 17:24 Heparin Sodium (Porcine) (Heparin 5000 units/ml) 5,000 units EVERY 12 HOURS SUBQ 12/26/18 21:00 01/25/19 20:59 01/04/19 20:58 Insulin Aspart (NovoLOG) BEFORE MEALS AND HS SUBQ 12/26/18 21:00 01/25/19 20:59 01/04/19 20:59 Magnesium Hydroxide (Mom) 30 ml DAILYPRN PRN ORAL Constipation 12/26/18 20:00 01/25/19 19:59 Nitroglycerin (Ntg) 0.4 mg Q5M PRN SL Prn Chest Pain 12/26/18 19:30 01/25/19 19:29 01/01/19 15:18 Ondansetron HCl (Zofran) 4 mg Q6H PRN IVP Nausea & Vomiting 12/26/18 19:30 01/25/19 19:29 12/29/18 09:04 Pantoprazole (Protonix) 40 mg DAILY ORAL 12/27/18 09:00 01/26/19 08:59 01/04/19 09:01 Paroxetine HCl (Paxil) 30 mg DAILY ORAL 12/27/18 09:00 01/26/19 08:59 01/04/19 09:00 Polyethylene Glycol (Miralax) 17 gm DAILYPRN PRN ORAL Constipation 12/26/18 20:00 01/25/19 19:29 Quetiapine Fumarate (SEROquel) 100 mg THREE TIMES A DAY ORAL 12/27/18 09:00 01/26/19 08:59 01/04/19 17:25 Tamsulosin HCl (Flomax) 0.4 mg BEDTIME ORAL 12/26/18 21:00 01/25/19 20:59 01/04/19 20:57 Trazodone HCl (Desyrel) 100 mg BEDTIME ORAL 12/26/18 21:00 01/25/19 20:59 01/04/19 20:57 Giuliana Kinney NP Jan 05, 2019 07:35
--- NOTE | 2019-01-05 07:52 | NUR ---
NURSE NOTES: Patient in bed, awake, alert and verbally responsive. appears to be aggressived and compulsived behavior. Able to make needs known. Respiration is even and unlabored. Kept clean and comfortable. Bed in low and bed alarm locked position. Provided safe environment. No complaint of pain or discomfort noted at this time. Skin warm and dry to touch. Noted with lower extremity dressing, intact, dry. Call light is at bedside. Will continue plan of care.
[2019-01-05 08:00] VITALS: BP 130/86
--- NOTE | 2019-01-05 08:21 | General Progress Note ---
Assessment/Plan Problem List: (1) History of CVA (cerebrovascular accident) ICD Codes: Z86.73 - Personal history of transient ischemic attack (TIA), and cerebral infarction without residual deficits SNOMED: 285333519 (2) Cellulitis ICD Codes: L03.90 - Cellulitis, unspecified SNOMED: 631569870 (3) Anemia ICD Codes: D64.9 - Anemia SNOMED: 816420318 (4) Diabetes ICD Codes: E11.9 - Diabetes SNOMED: 13119828 (5) Hypertension ICD Codes: I10 - Hypertension SNOMED: 28910617 (6) Failure to thrive in adult ICD Codes: R62.7 - Adult failure to thrive SNOMED: 258599899 (7) Ulcer of left ankle ICD Codes: L97.329 - Non-pressure chronic ulcer of left ankle with unspecified severity SNOMED: 857554379, 60844351 Qualifiers: Qualified Codes: L97.322 - Non-pressure chronic ulcer of left ankle with fat layer exposed Status: stable, progressing Assessment/Plan wound care abx pain control cbc bmp am dc to snf if clear Subjective Constitutional: Reports: weakness Allergies: Coded Allergies: THIORIDAZINE (Unverified Allergy, Mild, HIVES, 04/06/15) PENICILLIN (Unverified Allergy, Unknown, 06/15/15) PENICILLINS (Unverified Allergy, Unknown, 11/24/17) All Systems: reviewed and negative except above Subjective sl foot pain Objective Last 24 Hour Vital Signs Date Time Temp Pulse Resp B/P (MAP) Pulse Ox O2 Delivery O2 Flow Rate FiO2 01/05/19 04:00 97.3 109 16 132/86 (101) 97 01/05/19 00:36 96.8 110 18 121/80 (94) 98 01/04/19 21:00 Room Air Room Air 01/04/19 20:00 97.5 117 18 128/83 (98) 99 01/04/19 16:00 97.5 108 18 119/76 (90) 99 01/04/19 12:11 98.6 104 18 119/76 (90) 99 01/04/19 09:01 131/60 01/04/19 09:01 88 131/60 01/04/19 08:40 Room Air Room Air Intake and Output 01/04/19 01/05/19 19:00 07:00 Intake Total 480 ml Balance 480 ml Intake Oral 480 ml Laboratory Tests 01/05/19 05:10: White Blood Count 9.2, Red Blood Count 4.26L, Hemoglobin 12.1L, Hematocrit 38.3L , Mean Corpuscular Volume 90, Mean Corpuscular Hemoglobin 28.4, Mean Corpuscular Hemoglobin Concent 31.6L, Red Cell Distribution Width 15.0H, Platelet Count 284, Mean Platelet Volume 7.6, Neutrophils (%) (Auto) 58.7, Lymphocytes (%) (Auto) 23.7, Monocytes (%) (Auto) 13.8H, Eosinophils (%) (Auto) 3.2H, Basophils (%) (Auto) 0.6, Sodium Level 138, Potassium Level 5.6H, Chloride Level 102, Carbon Dioxide Level 29, Anion Gap 7, Blood Urea Nitrogen 34H, Creatinine 1.2, Estimat Glomerular Filtration Rate > 60, Glucose Level 100 , Calcium Level 11.1H Height (Feet): 5 Height (Inches): 10.00 Weight (Pounds): 174 General Appearance: lethargic EENT: normal ENT inspection Neck: normal alignment Cardiovascular: normal peripheral pulses, normal rate, regular rhythm Respiratory/Chest: chest wall non-tender, lungs clear, normal breath sounds Abdomen: normal bowel sounds, non tender, soft Extremities: normal inspection Edema: no edema noted Arm (L), no edema noted Arm (R), no edema noted Leg (L), no edema noted Leg (R), no edema noted Pedal (L), no edema noted Pedal (R), no edema noted Generalized Neurologic: responsive, motor weakness Skin: normal pigmentation, warm/dry Objective foot dressing c&d Jarek Gonzalez DO Jan 05, 2019 08:21
[2019-01-05] MEDS: PARoxetine 10mg tab ORAL SCH (08:44)
[2019-01-05] MEDS: Benztropine 1mg tab ORAL SCH ×3 (08:45→17:10)
[2019-01-05] MEDS: Benazepril 10mg tab ORAL SCH (08:46)
[2019-01-05] MEDS: Heparin 5000 units/ml inj SUBQ SCH ×2 (08:48→21:41)
--- NOTE | 2019-01-05 09:15 | Infectious Diseases Prog Note ---
Assessment/Plan Assessment/Plan sessment: L ankle ulcer- mild gavin wound cellulitis;ulcer itself not infected Wnd : Morg. M , Strp[facility], cantor S PsA( colonizers ) -Xray ankle: No definite acute bony process. Possible lateral soft tissue irregularity-correlate with clinical findings -Bcx neg Afebrile Mild leukocytosis; SP DM2 HTN COPD SNF resident Plan: -Continue to monitor off abx as he is clinically stable -01/03 SP Doxycycline #7 IV Vancomycin #3 12/28 -s/p IV Vancomycin x1 12/26 -Monitor CBC/CMP, temperatures -wound care Subjective Allergies: Coded Allergies: THIORIDAZINE (Unverified Allergy, Mild, HIVES, 04/06/15) PENICILLIN (Unverified Allergy, Unknown, 06/15/15) PENICILLINS (Unverified Allergy, Unknown, 11/24/17) Subjective Afebrile No Leukocytosis Objective Vital Signs Last 24 Hour Vital Signs Date Time Temp Pulse Resp B/P (MAP) Pulse Ox O2 Delivery O2 Flow Rate FiO2 01/05/19 08:46 130/86 01/05/19 08:46 120 130/86 01/05/19 04:00 97.3 109 16 132/86 (101) 97 01/05/19 00:36 96.8 110 18 121/80 (94) 98 01/04/19 21:00 Room Air Room Air 01/04/19 20:00 97.5 117 18 128/83 (98) 99 01/04/19 16:00 97.5 108 18 119/76 (90) 99 01/04/19 12:11 98.6 104 18 119/76 (90) 99 Height (Feet): 5 Height (Inches): 10.00 Weight (Pounds): 174 Objective Gen: NAD HEENT: NCAT, MMM, PERRL Respiratory: CTAB, No W Cardiovascular : regular rate, rhythm, S1, S2 Gastrointestinal: , soft, non-distended Skin: other - large ulcer to L ankle Laboratory Tests Test 01/05/19 05:10 White Blood Count 9.2 K/UL (4.8-10.8) Red Blood Count 4.26 M/UL (4.70-6.10) L Hemoglobin 12.1 G/DL (14.2-18.0) L Hematocrit 38.3 % (42.0-52.0) L Mean Corpuscular Volume 90 FL (80-99) Mean Corpuscular Hemoglobin 28.4 PG (27.0-31.0) Mean Corpuscular Hemoglobin Concent 31.6 G/DL (32.0-36.0) L Red Cell Distribution Width 15.0 % (11.6-14.8) H Platelet Count 284 K/UL (150-450) Mean Platelet Volume 7.6 FL (6.5-10.1) Neutrophils (%) (Auto) 58.7 % (45.0-75.0) Lymphocytes (%) (Auto) 23.7 % (20.0-45.0) Monocytes (%) (Auto) 13.8 % (1.0-10.0) H Eosinophils (%) (Auto) 3.2 % (0.0-3.0) H Basophils (%) (Auto) 0.6 % (0.0-2.0) Sodium Level 138 MMOL/L (136-145) Potassium Level 5.6 MMOL/L (3.5-5.1) H Chloride Level 102 MMOL/L (98-107) Carbon Dioxide Level 29 MMOL/L (21-32) Anion Gap 7 mmol/L (5-15) Blood Urea Nitrogen 34 mg/dL (7-18) H Creatinine 1.2 MG/DL (0.55-1.30) Estimat Glomerular Filtration Rate > 60 mL/min (>60) Glucose Level 100 MG/DL (74-106) Calcium Level 11.1 MG/DL (8.5-10.1) H Current Medications Medications (Trade) Dose Ordered Sig/Taco Route PRN Reason Start Time Stop Time Status Last Admin Dose Admin Acetaminophen (Tylenol) 650 mg Q4H PRN ORAL fever 12/26/18 19:30 01/25/19 19:29 Amlodipine Besylate (Norvasc) 10 mg DAILY ORAL 12/27/18 09:00 01/26/19 08:59 01/05/19 08:46 Benazepril HCl (Lotensin) 10 mg DAILY ORAL 12/27/18 09:00 01/26/19 08:59 01/05/19 08:46 Benztropine Mesylate (Cogentin) 1 mg THREE TIMES A DAY ORAL 12/27/18 18:00 01/26/19 17:59 01/05/19 08:45 Clonidine HCl (Catapres Tab) 0.1 mg Q6H PRN ORAL For High Blood Pressure 12/26/18 20:00 01/25/19 19:59 Clopidogrel Bisulfate (Plavix) 75 mg DAILY ORAL 12/27/18 09:00 01/26/19 08:59 01/05/19 08:44 Dextrose (Dextrose 50%) 25 ml Q30M PRN IV Hypoglycemia 12/26/18 19:45 01/25/19 19:33 Dextrose (Dextrose 50%) 50 ml Q30M PRN IV hypoglycemia 12/26/18 19:45 01/25/19 19:44 Divalproex Sodium (Depakote) 250 mg Q12HR ORAL 12/26/18 21:00 01/25/19 20:59 01/05/19 08:44 Gabapentin (Neurontin) 300 mg THREE TIMES A DAY ORAL 12/27/18 09:00 01/26/19 08:59 01/05/19 08:45 Haloperidol (Haldol) 5 mg TID ORAL 12/27/18 18:00 01/26/19 17:59 01/05/19 08:45 Heparin Sodium (Porcine) (Heparin 5000 units/ml) 5,000 units EVERY 12 HOURS SUBQ 12/26/18 21:00 01/25/19 20:59 01/05/19 08:48 Insulin Aspart (NovoLOG) BEFORE MEALS AND HS SUBQ 12/26/18 21:00 01/25/19 20:59 01/04/19 20:59 Magnesium Hydroxide (Mom) 30 ml DAILYPRN PRN ORAL Constipation 12/26/18 20:00 01/25/19 19:59 Nitroglycerin (Ntg) 0.4 mg Q5M PRN SL Prn Chest Pain 12/26/18 19:30 01/25/19 19:29 01/01/19 15:18 Ondansetron HCl (Zofran) 4 mg Q6H PRN IVP Nausea & Vomiting 12/26/18 19:30 01/25/19 19:29 12/29/18 09:04 Pantoprazole (Protonix) 40 mg DAILY ORAL 12/27/18 09:00 01/26/19 08:59 01/05/19 08:45 Paroxetine HCl (Paxil) 30 mg DAILY ORAL 12/27/18 09:00 01/26/19 08:59 01/05/19 08:44 Polyethylene Glycol (Miralax) 17 gm DAILYPRN PRN ORAL Constipation 12/26/18 20:00 01/25/19 19:29 Quetiapine Fumarate (SEROquel) 100 mg THREE TIMES A DAY ORAL 12/27/18 09:00 01/26/19 08:59 01/05/19 08:45 Tamsulosin HCl (Flomax) 0.4 mg BEDTIME ORAL 12/26/18 21:00 01/25/19 20:59 01/04/19 20:57 Trazodone HCl (Desyrel) 100 mg BEDTIME ORAL 12/26/18 21:00 01/25/19 20:59 01/04/19 20:57 Von Weaver MD Jan 05, 2019 09:15
[2019-01-05 12:00] VITALS: BP 135/69
[2019-01-05] MEDS ORDERED: Sodium Polystyrene Sulfonate 15gm Powder ORAL ONE (14:00)
--- NOTE | 2019-01-05 14:58 | Surgery Progress Note ---
Surgery Progress Note Subjective Additional Comments doing well. no complaints. no n/v/f/c. comfortable. Objective Last 24 Hour Vital Signs Date Time Temp Pulse Resp B/P (MAP) Pulse Ox O2 Delivery O2 Flow Rate FiO2 01/05/19 12:00 98.6 115 20 135/69 (91) 97 01/05/19 09:00 Room Air Room Air 01/05/19 08:46 130/86 01/05/19 08:46 120 130/86 01/05/19 08:00 97.5 109 16 130/86 (101) 97 01/05/19 04:00 97.3 109 16 132/86 (101) 97 01/05/19 00:36 96.8 110 18 121/80 (94) 98 01/04/19 21:00 Room Air Room Air 01/04/19 20:00 97.5 117 18 128/83 (98) 99 01/04/19 16:00 97.5 108 18 119/76 (90) 99 I&O Intake and Output 01/04/19 01/05/19 19:00 07:00 Intake Total 480 ml Balance 480 ml Intake Oral 480 ml Dressing: other Wound: other Drains: none Cardiovascular: RSR Respiratory: clear Abdomen: soft, flat, non-tender, present bowel sounds, non-distended Extremities: cyanosis, other Laboratory Tests Test 01/05/19 05:10 White Blood Count 9.2 K/UL (4.8-10.8) Red Blood Count 4.26 M/UL (4.70-6.10) L Hemoglobin 12.1 G/DL (14.2-18.0) L Hematocrit 38.3 % (42.0-52.0) L Mean Corpuscular Volume 90 FL (80-99) Mean Corpuscular Hemoglobin 28.4 PG (27.0-31.0) Mean Corpuscular Hemoglobin Concent 31.6 G/DL (32.0-36.0) L Red Cell Distribution Width 15.0 % (11.6-14.8) H Platelet Count 284 K/UL (150-450) Mean Platelet Volume 7.6 FL (6.5-10.1) Neutrophils (%) (Auto) 58.7 % (45.0-75.0) Lymphocytes (%) (Auto) 23.7 % (20.0-45.0) Monocytes (%) (Auto) 13.8 % (1.0-10.0) H Eosinophils (%) (Auto) 3.2 % (0.0-3.0) H Basophils (%) (Auto) 0.6 % (0.0-2.0) Sodium Level 138 MMOL/L (136-145) Potassium Level 5.6 MMOL/L (3.5-5.1) H Chloride Level 102 MMOL/L (98-107) Carbon Dioxide Level 29 MMOL/L (21-32) Anion Gap 7 mmol/L (5-15) Blood Urea Nitrogen 34 mg/dL (7-18) H Creatinine 1.2 MG/DL (0.55-1.30) Estimat Glomerular Filtration Rate > 60 mL/min (>60) Glucose Level 100 MG/DL (74-106) Calcium Level 11.1 MG/DL (8.5-10.1) H Plan Problems: (1) Ulcer of left ankle Assessment & Plan: large chronic left ankle ulceration near circumferential on left ankle. full thickness with eschar on some areas and some areas of granulation tissue. no drainage. no fluctuance. tender, periwound okay. pulses diminished. calf okay. foot with decreased cap refill. please see photos Plain films noted venous duplex without dvt and patent. labs noted long discussion about wound and leg with patient. states he has no intention of having debridement, grafting, or amputation at anytime. will now allow wound to be cleaned properly. will only allow for dressing to be changed. -wash left ankle daily with NS. apply xeroform to wound, ABD, and wrap with kerlix -okay to d/c from surgical standpoint -outpatient wound care follow up thank you will follow with recs. Devon Sullivan Jan 05, 2019 14:58
--- NOTE | 2019-01-05 15:53 | NUR ---
NURSE NOTES: able to provide bath to the patient though shown compulsiveness. will cont to monitor.
[2019-01-05 16:00] VITALS: BP 131/86
--- NOTE | 2019-01-05 18:01 | Progress Note ---
DATE: 01/05/2019 SUBJECTIVE: This is a 68-year-old male patient with left ankle ulcer. This patient has some confusion, some disorganized thought process, and some mood lability worsened by the stress of his medical illness. MENTAL STATUS EXAMINATION: The patient is a 68-year-old male. Appearance is disheveled. Attitude, irritable and agitated. Affect, guarded and restricted. Intellect poor. Mood, depressed and anxious. Motor activity, psychomotor agitation. Attention span is poor. Orientation x2. Speech is pressured. Thought process, disorganized and illogical. Thought content, auditory hallucinations and paranoid delusions. Insight and judgment is poor. DIAGNOSIS: Schizoaffective, bipolar type. PLAN: Treat him with trazodone 100 mg at bedtime, Paxil 30 mg daily, Seroquel 100 mg 3 times a day, Neurontin 300 mg 3 times a day, Haldol 5 mg 3 times a day, and Depakote 250 mg q.12 hours. Provided him with 20 minutes of cognitive behavioral therapy to help him identify his automatic negative thoughts and help him convert those negative thoughts to more positive thoughts to reduce depression, anxiety, and suicidality. Chart is reviewed. Discussed with staff. Seen and assessed at the bedside. Also, help him provide more adaptive behavioral pattern throughout the hospital course. Uziel Collado M.D. DR: TONYA JOB#: [id number] CC:
--- NOTE | 2019-01-05 18:28 | NUR ---
NURSE NOTES: patient had refused for wound care treatment. attempted 3x and became hostile. had explained the importance for the wound care treatment and remained refused. will cont to monitor.
--- NOTE | 2019-01-05 19:25 | NUR ---
HAND-OFF: Report given to Afua.
[2019-01-05 20:00] VITALS: BP 104/71
[2019-01-05] MEDS: TraZODone 100mg tab ORAL SCH (21:33)
[2019-01-05] MEDS: Tamsulosin 0.4mg cap ORAL SCH (21:34)
--- NOTE | 2019-01-05 22:00 | NUR ---
NURSE NOTES: Pt is in bed, awake and verbal. No acute distress noted. Bloos sugar 108. Pt refuses dressing change on the left ankle at this time, will try again later. Bed low in position,side rails up and call light within reach.
--- NOTE | 2019-01-05 23:02 | Cardiology Progress Note ---
Assessment/Plan Assessment/Plan 1. Most likely noncardiac, chest pain. The patient is currently chest pain free. A 12-lead electrocardiogram did not show any acute ischemic changes. Troponin I level has been negative. In face of the patient's severe debilitation, I would not consider any invasive cardiac workup. If the chest pain is recurrent, we may have to obtain 2D echocardiography, continue aspirin and statins, beta-ni for double product control. 2. History of diabetes mellitus. 3. History of hypertension. Subjective Subjective No cardiac events reported. Objective Last 24 Hour Vital Signs Date Time Temp Pulse Resp B/P (MAP) Pulse Ox O2 Delivery O2 Flow Rate FiO2 01/05/19 21:00 Room Air Room Air 01/05/19 20:00 98.5 98 18 104/71 (82) 98 01/05/19 16:00 98.6 89 18 131/86 (101) 96 01/05/19 12:00 98.6 115 20 135/69 (91) 97 01/05/19 09:00 Room Air Room Air 01/05/19 08:46 130/86 01/05/19 08:46 120 130/86 01/05/19 08:00 97.5 109 16 130/86 (101) 97 01/05/19 04:00 97.3 109 16 132/86 (101) 97 01/05/19 00:36 96.8 110 18 121/80 (94) 98 Intake and Output 01/04/19 01/05/19 19:00 07:00 Intake Total 480 ml Balance 480 ml Intake Oral 480 ml Laboratory Tests Test 01/05/19 05:10 White Blood Count 9.2 K/UL (4.8-10.8) Red Blood Count 4.26 M/UL (4.70-6.10) L Hemoglobin 12.1 G/DL (14.2-18.0) L Hematocrit 38.3 % (42.0-52.0) L Mean Corpuscular Volume 90 FL (80-99) Mean Corpuscular Hemoglobin 28.4 PG (27.0-31.0) Mean Corpuscular Hemoglobin Concent 31.6 G/DL (32.0-36.0) L Red Cell Distribution Width 15.0 % (11.6-14.8) H Platelet Count 284 K/UL (150-450) Mean Platelet Volume 7.6 FL (6.5-10.1) Neutrophils (%) (Auto) 58.7 % (45.0-75.0) Lymphocytes (%) (Auto) 23.7 % (20.0-45.0) Monocytes (%) (Auto) 13.8 % (1.0-10.0) H Eosinophils (%) (Auto) 3.2 % (0.0-3.0) H Basophils (%) (Auto) 0.6 % (0.0-2.0) Sodium Level 138 MMOL/L (136-145) Potassium Level 5.6 MMOL/L (3.5-5.1) H Chloride Level 102 MMOL/L (98-107) Carbon Dioxide Level 29 MMOL/L (21-32) Anion Gap 7 mmol/L (5-15) Blood Urea Nitrogen 34 mg/dL (7-18) H Creatinine 1.2 MG/DL (0.55-1.30) Estimat Glomerular Filtration Rate > 60 mL/min (>60) Glucose Level 100 MG/DL (74-106) Calcium Level 11.1 MG/DL (8.5-10.1) H Objective HEENT: Atraumatic and normocephalic. Anicteric. Pupils are equal, round, and reactive to light and accommodation. Extraocular muscles intact. NECK: JVP is less than 5 cm. No carotid bruits. Carotid upstrokes 2+ bilaterally. CARDIOVASCULAR: Normal S1, S2. Regular rate and rhythm. No murmurs, gallops, or rubs. PMI is at fourth intercostal space in the midclavicular line. LUNGS: Clear to auscultation bilaterally. ABDOMEN: Soft, nontender, and nondistended. No hepatosplenomegaly. Positive bowel sounds. EXTREMITIES: Left leg ulceration. Left heel and foot with dressing, edema surrounding the ulcerations. Jimenez Polo MD Jan 05, 2019 23:02
[2019-01-06] VITALS: BP 111/73
[2019-01-06 04:00] VITALS: BP 119/73
--- NOTE | 2019-01-06 06:00 | NUR ---
NURSE NOTES: Wound care provided on the left ankle, dressing changed. Picture of the wound uploaded.
[2019-01-06] MEDS: NovoLOG Insulin Flexpen SUBQ SCH ×4 (06:30→20:24)
--- NOTE | 2019-01-06 07:20 | NUR ---
HAND-OFF: Report given to OLGA Paz .
[2019-01-06 07:34] LABS: ANION GAP 9 mmol/L (5-15); BLOOD UREA NITROGEN 47 mg/dL (7-18); CALCIUM 10.6 MG/DL (8.5-10.1); CARBON DIOXIDE 26 MMOL/L (21-32); CHLORIDE 101 MMOL/L (98-107); CREATININE 1.5 MG/DL (0.55-1.30); POTASSIUM 4.9 MMOL/L (3.5-5.1); SODIUM 136 MMOL/L (136-145)
[2019-01-06 07:58] LABS: BASOPHILS % (AUTO) 1.2 % (0.0-2.0); EOSINOPHILS % (AUTO) 2.9 % (0.0-3.0); HEMATOCRIT 37.4 % (42.0-52.0); HEMOGLOBIN 11.9 G/DL (14.2-18.0); LYMPHOCYTES % (AUTO) 17.5 % (20.0-45.0); MEAN CORPUSCULAR VOLUME 89 FL (80-99); MONOCYTES % (AUTO) 16.8 % (1.0-10.0); NEUTROPHILS % (AUTO) 61.6 % (45.0-75.0); PLATELET COUNT 241 K/UL (150-450); RED CELL DISTRIBUTION WIDTH 14.6 % (11.6-14.8); WHITE BLOOD COUNT 8.5 K/UL (4.8-10.8)
[2019-01-06 08:00] VITALS: BP 102/71
--- NOTE | 2019-01-06 08:00 | NUR ---
NURSE NOTES: received patient in bed, bedbound. He is awake, no complaint of pain or discomfort. RAC IV access. Dressing at his left ankle is dry and intact. Call light within easy reach, siderails up x3, bed locked in lowest position and in bed alarm mode. Will continue to monitor patient and follow up with the plan of care.
--- NOTE | 2019-01-06 08:30 | Pulmonology Progress Note ---
Assessment/Plan Assessment/Plan ASSESSMENT Left ankle ulcer ( not infected) L ankle cellulitis ( gavin-wound) COPD HTN DM Non-cardiac CP Anemia Schizoaffective bipolar type Hyperkalemia-resolved PLAN OF CARE MS floor serial troponin negative, EKG revealed no acute ischemic changes ; patient was ruled out for acute [place] per cardio CP noncardiac continue Plavix no invasive cardiac workup was recommended by cardio BP management with CCB and JOSH Venous duplex BLE begative O2 titrate to keep pulse ox above 92 %; pulmonary toilet prn; no signs of respiratory distress CXR - no acute CP pathology completed course of abx blood cx negative ID recommended monitor off abx, remains afebrile, no leukocytosis wound care as per surgery recommendation DVT /GI prophylaxis BS management with SSI bowel regimen pain management monitor H&H with goal to keep hemoglobin above 7 , remains at range CEA minimally elevated- 5.1 psychiatric medication regimen was optimized as per psychiatrist s/p hyperkalemia for 2 days, s/p Kayexalate hyperkalemia possibly due to JOSH, K-4.9 today, monitor K clsoely, case discussed and evaluated by supervising physician Subjective Allergies: Coded Allergies: THIORIDAZINE (Unverified Allergy, Mild, HIVES, 04/06/15) PENICILLIN (Unverified Allergy, Unknown, 06/15/15) PENICILLINS (Unverified Allergy, Unknown, 11/24/17) Subjective remains afebrile, no leucocytosis no signs of resp distress Objective Last 24 Hour Vital Signs Date Time Temp Pulse Resp B/P (MAP) Pulse Ox O2 Delivery O2 Flow Rate FiO2 01/06/19 04:00 98.2 104 18 119/73 (88) 96 01/06/19 00:00 98.5 101 18 111/73 (86) 97 01/05/19 21:00 Room Air Room Air 01/05/19 20:00 98.5 98 18 104/71 (82) 98 01/05/19 16:00 98.6 89 18 131/86 (101) 96 01/05/19 12:00 98.6 115 20 135/69 (91) 97 01/05/19 09:00 Room Air Room Air 01/05/19 08:46 130/86 01/05/19 08:46 120 130/86 Intake and Output 01/05/19 01/06/19 18:59 06:59 Intake Total 600 ml 240 ml Output Total 600 ml Balance 600 ml -360 ml Intake Oral 240 ml Other 600 ml Output Urine Total 600 ml Objective General Appearance: no acute distress, awake, alert, AA male HEENT: normocephalic, atraumatic, anicteric Respiratory/Chest: lungs clear, no respiratory distress, no accessory muscle use Cardiovascular: normal peripheral pulses, normal rate Abdomen: soft, non tender, non distended Extremities: no edema Skin: left ankle ulcer , not infected , periwound with mild erythema, edema, no drainage, TTP, dressing over ulcer - C/D/I Neurologic/Psychiatric: abnormal gait, alert - responsive , other - moves all extremities Laboratory Tests 01/06/19 06:00: White Blood Count 8.5, Red Blood Count 4.20L, Hemoglobin 11.9L, Hematocrit 37.4L , Mean Corpuscular Volume 89, Mean Corpuscular Hemoglobin 28.4, Mean Corpuscular Hemoglobin Concent 31.9L, Red Cell Distribution Width 14.6, Platelet Count 241, Mean Platelet Volume 7.9, Neutrophils (%) (Auto) 61.6, Lymphocytes (%) (Auto) 17.5L, Monocytes (%) (Auto) 16.8H, Eosinophils (%) (Auto ) 2.9, Basophils (%) (Auto) 1.2, Sodium Level 136, Potassium Level 4.9, Chloride Level 101, Carbon Dioxide Level 26, Anion Gap 9, Blood Urea Nitrogen 47H, Creatinine 1.5H, Estimat Glomerular Filtration Rate 56.7, Glucose Level 98 , Calcium Level 10.6H Current Medications Medications (Trade) Dose Ordered Sig/Taco Route PRN Reason Start Time Stop Time Status Last Admin Dose Admin Acetaminophen (Tylenol) 650 mg Q4H PRN ORAL fever 12/26/18 19:30 01/25/19 19:29 Amlodipine Besylate (Norvasc) 10 mg DAILY ORAL 12/27/18 09:00 01/26/19 08:59 01/05/19 08:46 Benazepril HCl (Lotensin) 10 mg DAILY ORAL 12/27/18 09:00 01/26/19 08:59 01/05/19 08:46 Benztropine Mesylate (Cogentin) 1 mg THREE TIMES A DAY ORAL 12/27/18 18:00 01/26/19 17:59 01/05/19 17:10 Clonidine HCl (Catapres Tab) 0.1 mg Q6H PRN ORAL For High Blood Pressure 12/26/18 20:00 01/25/19 19:59 Clopidogrel Bisulfate (Plavix) 75 mg DAILY ORAL 12/27/18 09:00 01/26/19 08:59 01/05/19 08:44 Dextrose (Dextrose 50%) 25 ml Q30M PRN IV Hypoglycemia 12/26/18 19:45 01/25/19 19:33 Dextrose (Dextrose 50%) 50 ml Q30M PRN IV hypoglycemia 12/26/18 19:45 01/25/19 19:44 Divalproex Sodium (Depakote) 250 mg Q12HR ORAL 12/26/18 21:00 01/25/19 20:59 01/05/19 21:34 Gabapentin (Neurontin) 300 mg THREE TIMES A DAY ORAL 12/27/18 09:00 01/26/19 08:59 01/05/19 17:10 Haloperidol (Haldol) 5 mg TID ORAL 12/27/18 18:00 01/26/19 17:59 01/05/19 17:10 Heparin Sodium (Porcine) (Heparin 5000 units/ml) 5,000 units EVERY 12 HOURS SUBQ 12/26/18 21:00 01/25/19 20:59 01/05/19 21:41 Insulin Aspart (NovoLOG) BEFORE MEALS AND HS SUBQ 12/26/18 21:00 01/25/19 20:59 01/04/19 20:59 Magnesium Hydroxide (Mom) 30 ml DAILYPRN PRN ORAL Constipation 12/26/18 20:00 01/25/19 19:59 Nitroglycerin (Ntg) 0.4 mg Q5M PRN SL Prn Chest Pain 12/26/18 19:30 01/25/19 19:29 01/01/19 15:18 Ondansetron HCl (Zofran) 4 mg Q6H PRN IVP Nausea & Vomiting 12/26/18 19:30 01/25/19 19:29 12/29/18 09:04 Pantoprazole (Protonix) 40 mg DAILY ORAL 12/27/18 09:00 01/26/19 08:59 01/05/19 08:45 Paroxetine HCl (Paxil) 30 mg DAILY ORAL 12/27/18 09:00 01/26/19 08:59 01/05/19 08:44 Polyethylene Glycol (Miralax) 17 gm DAILYPRN PRN ORAL Constipation 12/26/18 20:00 01/25/19 19:29 Quetiapine Fumarate (SEROquel) 100 mg THREE TIMES A DAY ORAL 12/27/18 09:00 01/26/19 08:59 01/05/19 17:10 Tamsulosin HCl (Flomax) 0.4 mg BEDTIME ORAL 12/26/18 21:00 01/25/19 20:59 01/05/19 21:34 Trazodone HCl (Desyrel) 100 mg BEDTIME ORAL 12/26/18 21:00 01/25/19 20:59 01/05/19 21:33 Giuliana Kinney NP Jan 06, 2019 08:30
--- NOTE | 2019-01-06 08:35 | General Progress Note ---
Assessment/Plan Problem List: (1) History of CVA (cerebrovascular accident) ICD Codes: Z86.73 - Personal history of transient ischemic attack (TIA), and cerebral infarction without residual deficits SNOMED: 097295914 (2) Cellulitis ICD Codes: L03.90 - Cellulitis, unspecified SNOMED: 696515781 (3) Anemia ICD Codes: D64.9 - Anemia SNOMED: 263554924 (4) Diabetes ICD Codes: E11.9 - Diabetes SNOMED: 38031622 (5) Hypertension ICD Codes: I10 - Hypertension SNOMED: 91111415 (6) Failure to thrive in adult ICD Codes: R62.7 - Adult failure to thrive SNOMED: 001010692 (7) Ulcer of left ankle ICD Codes: L97.329 - Non-pressure chronic ulcer of left ankle with unspecified severity SNOMED: 139243379, 16856205 Qualifiers: Qualified Codes: L97.322 - Non-pressure chronic ulcer of left ankle with fat layer exposed Status: stable, progressing Assessment/Plan wound care abx pain control cbc bmp am pam veronica Subjective Constitutional: Reports: weakness Allergies: Coded Allergies: THIORIDAZINE (Unverified Allergy, Mild, HIVES, 04/06/15) PENICILLIN (Unverified Allergy, Unknown, 06/15/15) PENICILLINS (Unverified Allergy, Unknown, 11/24/17) All Systems: reviewed and negative except above Subjective sl foot pain Objective Last 24 Hour Vital Signs Date Time Temp Pulse Resp B/P (MAP) Pulse Ox O2 Delivery O2 Flow Rate FiO2 01/06/19 04:00 98.2 104 18 119/73 (88) 96 01/06/19 00:00 98.5 101 18 111/73 (86) 97 01/05/19 21:00 Room Air Room Air 01/05/19 20:00 98.5 98 18 104/71 (82) 98 01/05/19 16:00 98.6 89 18 131/86 (101) 96 01/05/19 12:00 98.6 115 20 135/69 (91) 97 01/05/19 09:00 Room Air Room Air 01/05/19 08:46 130/86 01/05/19 08:46 120 130/86 Intake and Output 01/05/19 01/06/19 18:59 06:59 Intake Total 600 ml 240 ml Output Total 600 ml Balance 600 ml -360 ml Intake Oral 240 ml Other 600 ml Output Urine Total 600 ml Laboratory Tests 01/06/19 06:00: White Blood Count 8.5, Red Blood Count 4.20L, Hemoglobin 11.9L, Hematocrit 37.4L , Mean Corpuscular Volume 89, Mean Corpuscular Hemoglobin 28.4, Mean Corpuscular Hemoglobin Concent 31.9L, Red Cell Distribution Width 14.6, Platelet Count 241, Mean Platelet Volume 7.9, Neutrophils (%) (Auto) 61.6, Lymphocytes (%) (Auto) 17.5L, Monocytes (%) (Auto) 16.8H, Eosinophils (%) (Auto ) 2.9, Basophils (%) (Auto) 1.2, Sodium Level 136, Potassium Level 4.9, Chloride Level 101, Carbon Dioxide Level 26, Anion Gap 9, Blood Urea Nitrogen 47H, Creatinine 1.5H, Estimat Glomerular Filtration Rate 56.7, Glucose Level 98 , Calcium Level 10.6H Height (Feet): 5 Height (Inches): 10.00 Weight (Pounds): 174 General Appearance: lethargic EENT: normal ENT inspection Neck: normal alignment Cardiovascular: normal peripheral pulses, normal rate, regular rhythm Respiratory/Chest: chest wall non-tender, lungs clear, normal breath sounds Abdomen: normal bowel sounds, non tender, soft Extremities: normal inspection Edema: no edema noted Arm (L), no edema noted Arm (R), no edema noted Leg (L), no edema noted Leg (R), no edema noted Pedal (L), no edema noted Pedal (R), no edema noted Generalized Neurologic: motor weakness Skin: normal pigmentation, warm/dry Objective foot dressing c&d Jarek Gonzalez DO Jan 06, 2019 08:35
[2019-01-06] MEDS: Benazepril 10mg tab ORAL SCH (08:42)
[2019-01-06] MEDS: PARoxetine 10mg tab ORAL SCH (08:48)
[2019-01-06] MEDS: Benztropine 1mg tab ORAL SCH ×3 (08:48→17:19)
[2019-01-06] MEDS: Heparin 5000 units/ml inj SUBQ SCH ×2 (08:53→20:32)
[2019-01-06 12:00] VITALS: BP 116/73
--- NOTE | 2019-01-06 15:15 | Surgery Progress Note ---
Surgery Progress Note Subjective Symptoms: improved, tolerating diet, BM Objective Last 24 Hour Vital Signs Date Time Temp Pulse Resp B/P (MAP) Pulse Ox O2 Delivery O2 Flow Rate FiO2 01/06/19 12:00 97.8 109 20 116/73 (87) 99 01/06/19 09:00 Room Air Room Air 01/06/19 08:43 103 102/71 01/06/19 08:42 102/71 01/06/19 08:00 97.4 103 18 102/71 (81) 97 01/06/19 04:00 98.2 104 18 119/73 (88) 96 01/06/19 00:00 98.5 101 18 111/73 (86) 97 01/05/19 21:00 Room Air Room Air 01/05/19 20:00 98.5 98 18 104/71 (82) 98 01/05/19 16:00 98.6 89 18 131/86 (101) 96 I&O Intake and Output 01/05/19 01/06/19 19:00 07:00 Intake Total 600 ml 240 ml Output Total 600 ml Balance 600 ml -360 ml Intake Oral 240 ml Other 600 ml Output Urine Total 600 ml Dressing: saturated Wound: other Drains: other Cardiovascular: RSR Respiratory: clear Abdomen: soft, flat, non-tender, non-distended Extremities: tenderness, cyanosis Laboratory Tests Test 01/06/19 06:00 White Blood Count 8.5 K/UL (4.8-10.8) Red Blood Count 4.20 M/UL (4.70-6.10) L Hemoglobin 11.9 G/DL (14.2-18.0) L Hematocrit 37.4 % (42.0-52.0) L Mean Corpuscular Volume 89 FL (80-99) Mean Corpuscular Hemoglobin 28.4 PG (27.0-31.0) Mean Corpuscular Hemoglobin Concent 31.9 G/DL (32.0-36.0) L Red Cell Distribution Width 14.6 % (11.6-14.8) Platelet Count 241 K/UL (150-450) Mean Platelet Volume 7.9 FL (6.5-10.1) Neutrophils (%) (Auto) 61.6 % (45.0-75.0) Lymphocytes (%) (Auto) 17.5 % (20.0-45.0) L Monocytes (%) (Auto) 16.8 % (1.0-10.0) H Eosinophils (%) (Auto) 2.9 % (0.0-3.0) Basophils (%) (Auto) 1.2 % (0.0-2.0) Sodium Level 136 MMOL/L (136-145) Potassium Level 4.9 MMOL/L (3.5-5.1) Chloride Level 101 MMOL/L (98-107) Carbon Dioxide Level 26 MMOL/L (21-32) Anion Gap 9 mmol/L (5-15) Blood Urea Nitrogen 47 mg/dL (7-18) H Creatinine 1.5 MG/DL (0.55-1.30) H Estimat Glomerular Filtration Rate 56.7 mL/min (>60) Glucose Level 98 MG/DL (74-106) Calcium Level 10.6 MG/DL (8.5-10.1) H Plan Problems: (1) Ulcer of left ankle Assessment & Plan: large chronic left ankle ulceration near circumferential on left ankle. full thickness with eschar on some areas and some areas of granulation tissue. no drainage. no fluctuance. tender, periwound okay. pulses diminished. calf okay. foot with decreased cap refill. please see photos Plain films noted venous duplex without dvt and patent. labs noted long discussion about wound and leg with patient. states he has no intention of having debridement, grafting, or amputation at anytime. will now allow wound to be cleaned properly. will only allow for dressing to be changed. -wash left ankle daily with NS. apply xeroform to wound, ABD, and wrap with kerlix -okay to d/c from surgical standpoint -outpatient wound care follow up thank you will follow with recs. Devon Sullivan Jan 06, 2019 15:15
--- NOTE | 2019-01-06 15:46 | Progress Note ---
DATE: 01/06/2019 SUBJECTIVE: This is a 68-year-old male patient. He has some left ankle ulcer. This patient has some confusion, some disorganized thought process, decline in cognition below the baseline. Today, he does have some feelings of hopelessness, helplessness, low energy, poor appetite, and loss of interest in activity, but he has no logical plan for his own self-care. MENTAL STATUS EXAMINATION: This is a 68-year-old male. His appearance is disheveled. Attitude, irritable and agitated. Affect, guarded and restricted. Intellect poor. Mood depressed and anxious. Motor activity, psychomotor agitation. Attention span is poor. Orientation x2. Speech is pressured. Thought process, disorganized and illogical. Insight and judgment is poor. DIAGNOSIS: Schizoaffective, bipolar type. PLAN: For this patient, treat him with trazodone 100 mg at bedtime, Paxil 30 mg daily, Seroquel 100 mg 3 times a day, Neurontin 300 mg 3 times a day, Haldol 5 mg 3 times a day, Depakote 250 mg q.12 hours. Provided him with 20 minutes of cognitive behavioral therapy to help him identify his automatic negative thoughts help him convert those negative thoughts to more positive thoughts to reduce depression, anxiety, and mood lability. Chart reviewed. Discussed with staff. Seen and assessed at the bedside. 20 minutes of cognitive behavioral therapy provided. Uziel Collado M.D. DR: GIOVANNA JOB#: [id number] CC:
[2019-01-06 16:00] VITALS: BP 105/90
--- NOTE | 2019-01-06 19:08 | NUR ---
HAND-OFF: Report given to OLGA Arteaga.
[2019-01-06 20:00] VITALS: BP 110/72
--- NOTE | 2019-01-06 20:00 | NUR ---
NURSE NOTES: Patient received in bed,asleep, easily arousable. No acute distress noted at this time. On RA. IV is intact and patent. Left ankle dressing dry and intact. Call light and urinal within reach. Will continue to monitor.
[2019-01-06] MEDS: Tamsulosin 0.4mg cap ORAL SCH (20:24)
[2019-01-06] MEDS: TraZODone 100mg tab ORAL SCH (20:25)
--- NOTE | 2019-01-06 23:53 | Cardiology Progress Note ---
Assessment/Plan Assessment/Plan 1. Most likely noncardiac, chest pain. The patient is currently chest pain free. A 12-lead electrocardiogram did not show any acute ischemic changes. Troponin I level has been negative. In face of the patient's severe debilitation, I would not consider any invasive cardiac workup. Will obtain 2D echocardiography, continue aspirin and statins, beta-ni for double product control. 2. History of diabetes mellitus. 3. History of hypertension. Subjective Subjective No cardiac events reported. Objective Last 24 Hour Vital Signs Date Time Temp Pulse Resp B/P (MAP) Pulse Ox O2 Delivery O2 Flow Rate FiO2 01/06/19 21:00 Room Air Room Air 01/06/19 20:00 97.6 120 16 110/72 (85) 98 01/06/19 16:00 98.6 116 21 105/90 (95) 95 01/06/19 12:00 97.8 109 20 116/73 (87) 99 01/06/19 09:00 Room Air Room Air 01/06/19 08:43 103 102/71 01/06/19 08:42 102/71 01/06/19 08:00 97.4 103 18 102/71 (81) 97 01/06/19 04:00 98.2 104 18 119/73 (88) 96 01/06/19 00:00 98.5 101 18 111/73 (86) 97 Intake and Output 01/05/19 01/06/19 19:00 07:00 Intake Total 600 ml 240 ml Output Total 600 ml Balance 600 ml -360 ml Intake Oral 240 ml Other 600 ml Output Urine Total 600 ml Laboratory Tests Test 01/06/19 06:00 White Blood Count 8.5 K/UL (4.8-10.8) Red Blood Count 4.20 M/UL (4.70-6.10) L Hemoglobin 11.9 G/DL (14.2-18.0) L Hematocrit 37.4 % (42.0-52.0) L Mean Corpuscular Volume 89 FL (80-99) Mean Corpuscular Hemoglobin 28.4 PG (27.0-31.0) Mean Corpuscular Hemoglobin Concent 31.9 G/DL (32.0-36.0) L Red Cell Distribution Width 14.6 % (11.6-14.8) Platelet Count 241 K/UL (150-450) Mean Platelet Volume 7.9 FL (6.5-10.1) Neutrophils (%) (Auto) 61.6 % (45.0-75.0) Lymphocytes (%) (Auto) 17.5 % (20.0-45.0) L Monocytes (%) (Auto) 16.8 % (1.0-10.0) H Eosinophils (%) (Auto) 2.9 % (0.0-3.0) Basophils (%) (Auto) 1.2 % (0.0-2.0) Sodium Level 136 MMOL/L (136-145) Potassium Level 4.9 MMOL/L (3.5-5.1) Chloride Level 101 MMOL/L (98-107) Carbon Dioxide Level 26 MMOL/L (21-32) Anion Gap 9 mmol/L (5-15) Blood Urea Nitrogen 47 mg/dL (7-18) H Creatinine 1.5 MG/DL (0.55-1.30) H Estimat Glomerular Filtration Rate 56.7 mL/min (>60) Glucose Level 98 MG/DL (74-106) Calcium Level 10.6 MG/DL (8.5-10.1) H Objective HEENT: Atraumatic and normocephalic. Anicteric. Pupils are equal, round, and reactive to light and accommodation. Extraocular muscles intact. NECK: JVP is less than 5 cm. No carotid bruits. Carotid upstrokes 2+ bilaterally. CARDIOVASCULAR: Normal S1, S2. Regular rate and rhythm. Tachycardic. No murmurs, gallops, or rubs. PMI is at fourth intercostal space in the midclavicular line. LUNGS: Clear to auscultation bilaterally. ABDOMEN: Soft, nontender, and nondistended. No hepatosplenomegaly. Positive bowel sounds. EXTREMITIES: Left leg ulceration. Left heel and foot with dressing, edema surrounding the ulcerations. Jimenez Polo MD Jan 06, 2019 23:53
[2019-01-07] VITALS (8 sets, daily range): BP systolic 86–138; BP diastolic 51–77
--- NOTE | 2019-01-07 00:15 | NUR ---
NURSE NOTES: Patient noted with decreased BP. Rechecked multiple times 85/67 with HR of 120s. Patient still arousable but stated he was dizzy. Call placed to Dr. Polo. Received order to bolus 500cc NS. If patient's SBP>90, continue to monitor patient. If patient's SBP remains<90, bolus 2nd 500cc of NS. If patient's SBP remains<90 after 1L of NS, notify Dr. Skinner to transfer to higher level of care.
--- NOTE | 2019-01-07 02:00 | NUR ---
NURSE NOTES: Rechecked patient's BP, still SBP<90, rechecked x3. Another 500cc bolus NS ordered for patient per Dr. Polo, will monitor.
--- NOTE | 2019-01-07 04:00 | NUR ---
NURSE NOTES: Patients BP 105/69 after total 1L of NS. Will continue to monitor. Patient appears to be in no acute distress.
[2019-01-07] MEDS: NovoLOG Insulin Flexpen SUBQ SCH ×4 (06:24→20:35)
--- NOTE | 2019-01-07 07:20 | NUR ---
HAND-OFF: Report given to Brandi ESPINOZA.
[2019-01-07] MEDS: Benztropine 1mg tab ORAL SCH ×3 (09:11→17:15)
[2019-01-07] MEDS: PARoxetine 10mg tab ORAL SCH (09:12)
[2019-01-07] MEDS: Heparin 5000 units/ml inj SUBQ SCH ×2 (09:14→20:35)
[2019-01-07 09:40] LABS: BASOPHILS % (AUTO) 1.4 % (0.0-2.0); EOSINOPHILS % (AUTO) 3.5 % (0.0-3.0); HEMATOCRIT 37.9 % (42.0-52.0); HEMOGLOBIN 11.9 G/DL (14.2-18.0); LYMPHOCYTES % (AUTO) 20.6 % (20.0-45.0); MEAN CORPUSCULAR VOLUME 89 FL (80-99); MONOCYTES % (AUTO) 12.7 % (1.0-10.0); NEUTROPHILS % (AUTO) 61.9 % (45.0-75.0); PLATELET COUNT 224 K/UL (150-450); RED BLOOD COUNT 4.25 M/UL (4.70-6.10); RED CELL DISTRIBUTION WIDTH 14.4 % (11.6-14.8); WHITE BLOOD COUNT 7.3 K/UL (4.8-10.8)
[2019-01-07 09:46] LABS: ANION GAP 10 mmol/L (5-15); BLOOD UREA NITROGEN 52 mg/dL (7-18); CALCIUM 10.6 MG/DL (8.5-10.1); CARBON DIOXIDE 25 MMOL/L (21-32); CHLORIDE 104 MMOL/L (98-107); CREATININE 1.4 MG/DL (0.55-1.30); POTASSIUM 4.5 MMOL/L (3.5-5.1); SODIUM 139 MMOL/L (136-145)
[2019-01-07] MEDS: Benazepril 10mg tab ORAL SCH (10:15)
--- NOTE | 2019-01-07 11:46 | General Progress Note ---
Assessment/Plan Problem List: (1) History of CVA (cerebrovascular accident) ICD Codes: Z86.73 - Personal history of transient ischemic attack (TIA), and cerebral infarction without residual deficits SNOMED: 581358879 (2) Cellulitis ICD Codes: L03.90 - Cellulitis, unspecified SNOMED: 570295964 (3) Anemia ICD Codes: D64.9 - Anemia SNOMED: 737662849 (4) Diabetes ICD Codes: E11.9 - Diabetes SNOMED: 45816814 (5) Hypertension ICD Codes: I10 - Hypertension SNOMED: 99704257 (6) Failure to thrive in adult ICD Codes: R62.7 - Adult failure to thrive SNOMED: 364463523 (7) Ulcer of left ankle ICD Codes: L97.329 - Non-pressure chronic ulcer of left ankle with unspecified severity SNOMED: 299737309, 99161755 Qualifiers: Qualified Codes: L97.322 - Non-pressure chronic ulcer of left ankle with fat layer exposed Status: stable, progressing Assessment/Plan wound care abx pain control cbc bmp am pam veronica Subjective Constitutional: Reports: weakness Allergies: Coded Allergies: THIORIDAZINE (Unverified Allergy, Mild, HIVES, 04/06/15) PENICILLIN (Unverified Allergy, Unknown, 06/15/15) PENICILLINS (Unverified Allergy, Unknown, 11/24/17) All Systems: reviewed and negative except above Subjective sl foot pain Objective Last 24 Hour Vital Signs Date Time Temp Pulse Resp B/P (MAP) Pulse Ox O2 Delivery O2 Flow Rate FiO2 01/07/19 10:15 121/77 01/07/19 10:15 113 121/77 01/07/19 08:00 96.6 113 16 121/77 (92) 98 01/07/19 03:47 96.9 114 16 105/69 (81) 97 01/07/19 03:16 89/57 (68) 01/07/19 00:40 94/67 (76) 01/07/19 00:30 97.5 125 16 86/54 (65) 97 01/06/19 21:00 Room Air Room Air 01/06/19 20:00 97.6 120 16 110/72 (85) 98 01/06/19 16:00 98.6 116 21 105/90 (95) 95 3/10/19 12:00 97.8 109 20 116/73 (87) 99 Intake and Output 01/06/19 01/07/19 18:59 06:59 Intake Total 650 ml Balance 650 ml Intake Oral 100 ml Other 550 ml # Voids 3 Laboratory Tests 01/07/19 09:00: White Blood Count 7.3, Red Blood Count 4.25L, Hemoglobin 11.9L, Hematocrit 37.9L , Mean Corpuscular Volume 89, Mean Corpuscular Hemoglobin 28.0, Mean Corpuscular Hemoglobin Concent 31.4L, Red Cell Distribution Width 14.4, Platelet Count 224, Mean Platelet Volume 8.6, Neutrophils (%) (Auto) 61.9, Lymphocytes (%) (Auto) 20.6, Monocytes (%) (Auto) 12.7H, Eosinophils (%) (Auto) 3.5H, Basophils (%) (Auto) 1.4, Sodium Level 139, Potassium Level 4.5, Chloride Level 104, Carbon Dioxide Level 25, Anion Gap 10, Blood Urea Nitrogen 52H, Creatinine 1.4H, Estimat Glomerular Filtration Rate > 60, Glucose Level 134H, Calcium Level 10.6H Height (Feet): 5 Height (Inches): 10.00 Weight (Pounds): 174 General Appearance: lethargic EENT: normal ENT inspection Neck: normal alignment Cardiovascular: normal peripheral pulses, normal rate, regular rhythm Respiratory/Chest: chest wall non-tender, lungs clear, normal breath sounds Abdomen: normal bowel sounds, non tender, soft Extremities: normal inspection Edema: no edema noted Arm (L), no edema noted Arm (R), no edema noted Leg (L), no edema noted Leg (R), no edema noted Pedal (L), no edema noted Pedal (R), no edema noted Generalized Neurologic: motor weakness Skin: normal pigmentation, warm/dry Objective foot dressing c&d Jarek Gonzalez DO Jan 07, 2019 11:46
--- NOTE | 2019-01-07 12:08 | NUR ---
RD ASSESSMENT & RECOMMENDATIONS SEE CARE ACTIVITY FOR COMPLETE ASSESSMENT DAILY ESTIMATED NEEDS: Needs based on wounds, DM 70.5kg 25-35 kcals/kg 9468-6909 total kcals 1.25-1.5 g protein/kg 88-106 g total protein 25-30 mL/kg 0749-3321 total fluid mLs NUTRITION DIAGNOSIS: 1) Increased protein needs r/t wound healing as evidenced by pt with L-ankle full thickness ulcer PO DIET RECOMMENDATIONS: CCHO MED/ DOUBLE PROTEIN PORTIONS (texture as tolerated) ADDITIONAL RECOMMENDATIONS: 1) calibrated bed scale wts (Per SNF: 155#) 2) WOUND CARE: add YUNI BID + VIT C 500mg BID + MVI x1 3) Monitor po intake -> pt on multiple psych meds, may alter appetite -> Variable intake, rec Glucerna daily 4) Add HS snack to prevent hypoglycemia in the AM.
--- NOTE | 2019-01-07 12:20 | Infectious Diseases Prog Note ---
Assessment/Plan Assessment/Plan Assessment: L ankle ulcer- mild gavin wound cellulitis;ulcer itself not infected Wnd : Morg. M , StrpGrpG, cantor S PsA( colonizers ) -Xray ankle: No definite acute bony process. Possible lateral soft tissue irregularity-correlate with clinical findings -Bcx neg Afebrile Mild leukocytosis; SP DM2 HTN COPD SNF resident Plan: -Continue to monitor off abx as he is clinically stable -01/03 SP Doxycycline #7 IV Vancomycin #3 12/28 -s/p IV Vancomycin x1 12/26 -Monitor CBC/CMP, temperatures -wound care Subjective Allergies: Coded Allergies: THIORIDAZINE (Unverified Allergy, Mild, HIVES, 04/06/15) PENICILLIN (Unverified Allergy, Unknown, 06/15/15) PENICILLINS (Unverified Allergy, Unknown, 11/24/17) Subjective afebrile no leukocytosis off abx now Objective Vital Signs Last 24 Hour Vital Signs Date Time Temp Pulse Resp B/P (MAP) Pulse Ox O2 Delivery O2 Flow Rate FiO2 01/07/19 10:15 121/77 01/07/19 10:15 113 121/77 01/07/19 08:00 96.6 113 16 121/77 (92) 98 01/07/19 03:47 96.9 114 16 105/69 (81) 97 01/07/19 03:16 89/57 (68) 01/07/19 00:40 94/67 (76) 01/07/19 00:30 97.5 125 16 86/54 (65) 97 01/06/19 21:00 Room Air Room Air 01/06/19 20:00 97.6 120 16 110/72 (85) 98 01/06/19 16:00 98.6 116 21 105/90 (95) 95 Height (Feet): 5 Height (Inches): 10.00 Weight (Pounds): 174 Objective General Appearance: no apparent distress, alert, non-toxic HEENT: normocephalic, atraumatic bilateral eye PERRL, normal pharynx Neck: full range of motion, supple/symm/no masses Respiratory: chest non-tender, lungs clear, normal breath sounds, speaking full sentences Cardiovascular : regular rate, rhythm, no edema Gastrointestinal: normal bowel sounds, non tender, soft, non-distended, no guarding, no rebound Genitourinary: normal inspection, no CVA tenderness Musculoskeletal: back normal, gait/station normal, normal range of motion, non- tender Neurologic: alert, oriented x3, responsive, motor strength/tone normal, sensory intact, speech normal Psychiatric: judgement/insight normal, memory normal, mood/affect normal, no suicidal/homicidal ideation Skin: other - large ulcer to L ankle. surrounding erythema/induration Laboratory Tests Test 01/07/19 09:00 White Blood Count 7.3 K/UL (4.8-10.8) Red Blood Count 4.25 M/UL (4.70-6.10) L Hemoglobin 11.9 G/DL (14.2-18.0) L Hematocrit 37.9 % (42.0-52.0) L Mean Corpuscular Volume 89 FL (80-99) Mean Corpuscular Hemoglobin 28.0 PG (27.0-31.0) Mean Corpuscular Hemoglobin Concent 31.4 G/DL (32.0-36.0) L Red Cell Distribution Width 14.4 % (11.6-14.8) Platelet Count 224 K/UL (150-450) Mean Platelet Volume 8.6 FL (6.5-10.1) Neutrophils (%) (Auto) 61.9 % (45.0-75.0) Lymphocytes (%) (Auto) 20.6 % (20.0-45.0) Monocytes (%) (Auto) 12.7 % (1.0-10.0) H Eosinophils (%) (Auto) 3.5 % (0.0-3.0) H Basophils (%) (Auto) 1.4 % (0.0-2.0) Sodium Level 139 MMOL/L (136-145) Potassium Level 4.5 MMOL/L (3.5-5.1) Chloride Level 104 MMOL/L (98-107) Carbon Dioxide Level 25 MMOL/L (21-32) Anion Gap 10 mmol/L (5-15) Blood Urea Nitrogen 52 mg/dL (7-18) H Creatinine 1.4 MG/DL (0.55-1.30) H Estimat Glomerular Filtration Rate > 60 mL/min (>60) Glucose Level 134 MG/DL (74-106) H Calcium Level 10.6 MG/DL (8.5-10.1) H Current Medications Medications (Trade) Dose Ordered Sig/Taco Route PRN Reason Start Time Stop Time Status Last Admin Dose Admin Acetaminophen (Tylenol) 650 mg Q4H PRN ORAL fever 12/26/18 19:30 01/25/19 19:29 Amlodipine Besylate (Norvasc) 10 mg DAILY ORAL 12/27/18 09:00 01/26/19 08:59 01/07/19 10:15 Benazepril HCl (Lotensin) 10 mg DAILY ORAL 12/27/18 09:00 01/26/19 08:59 01/07/19 10:15 Benztropine Mesylate (Cogentin) 1 mg THREE TIMES A DAY ORAL 12/27/18 18:00 01/26/19 17:59 01/07/19 12:11 Clonidine HCl (Catapres Tab) 0.1 mg Q6H PRN ORAL For High Blood Pressure 12/26/18 20:00 01/25/19 19:59 Clopidogrel Bisulfate (Plavix) 75 mg DAILY ORAL 12/27/18 09:00 01/26/19 08:59 01/07/19 09:11 Dextrose (Dextrose 50%) 25 ml Q30M PRN IV Hypoglycemia 12/26/18 19:45 01/25/19 19:33 Dextrose (Dextrose 50%) 50 ml Q30M PRN IV hypoglycemia 12/26/18 19:45 01/25/19 19:44 Divalproex Sodium (Depakote) 250 mg Q12HR ORAL 12/26/18 21:00 01/25/19 20:59 01/07/19 09:11 Gabapentin (Neurontin) 300 mg THREE TIMES A DAY ORAL 12/27/18 09:00 01/26/19 08:59 01/07/19 12:13 Haloperidol (Haldol) 5 mg TID ORAL 12/27/18 18:00 01/26/19 17:59 01/07/19 12:11 Heparin Sodium (Porcine) (Heparin 5000 units/ml) 5,000 units EVERY 12 HOURS SUBQ 12/26/18 21:00 01/25/19 20:59 01/07/19 09:14 Insulin Aspart (NovoLOG) BEFORE MEALS AND HS SUBQ 12/26/18 21:00 01/25/19 20:59 01/07/19 12:08 Magnesium Hydroxide (Mom) 30 ml DAILYPRN PRN ORAL Constipation 12/26/18 20:00 01/25/19 19:59 Nitroglycerin (Ntg) 0.4 mg Q5M PRN SL Prn Chest Pain 12/26/18 19:30 01/25/19 19:29 01/01/19 15:18 Ondansetron HCl (Zofran) 4 mg Q6H PRN IVP Nausea & Vomiting 12/26/18 19:30 01/25/19 19:29 12/29/18 09:04 Pantoprazole (Protonix) 40 mg DAILY ORAL 12/27/18 09:00 01/26/19 08:59 01/07/19 09:11 Paroxetine HCl (Paxil) 30 mg DAILY ORAL 12/27/18 09:00 01/26/19 08:59 01/07/19 09:12 Polyethylene Glycol (Miralax) 17 gm DAILYPRN PRN ORAL Constipation 12/26/18 20:00 01/25/19 19:29 Quetiapine Fumarate (SEROquel) 100 mg THREE TIMES A DAY ORAL 12/27/18 09:00 01/26/19 08:59 01/07/19 09:11 Tamsulosin HCl (Flomax) 0.4 mg BEDTIME ORAL 12/26/18 21:00 01/25/19 20:59 01/06/19 20:24 Trazodone HCl (Desyrel) 100 mg BEDTIME ORAL 12/26/18 21:00 01/25/19 20:59 01/06/19 20:25 Mireya Campos M.D. Jan 07, 2019 12:20
--- NOTE | 2019-01-07 16:16 | Pulmonology Progress Note ---
Assessment/Plan Problems: (1) Cellulitis (2) Severe anemia (3) Hypertension (4) UTI (urinary tract infection) (5) Schizoaffective disorder (6) Diabetes (7) History of CVA (cerebrovascular accident) Assessment/Plan all reviewed doing better, no new complains in better spirit wound care IV abx check cultures symptomatic treatment respiratory treatment dvt prophylaxis. dc planning in progress Subjective ROS Limited/Unobtainable: No Constitutional: Reports: no symptoms HEENT: Repors: no symptoms Respiratory: Reports: no symptoms Allergies: Coded Allergies: THIORIDAZINE (Unverified Allergy, Mild, HIVES, 04/06/15) PENICILLIN (Unverified Allergy, Unknown, 06/15/15) PENICILLINS (Unverified Allergy, Unknown, 11/24/17) Objective Last 24 Hour Vital Signs Date Time Temp Pulse Resp B/P (MAP) Pulse Ox O2 Delivery O2 Flow Rate FiO2 01/07/19 10:15 121/77 01/07/19 10:15 113 121/77 01/07/19 09:00 Room Air Room Air 01/07/19 08:00 96.6 113 16 121/77 (92) 98 01/07/19 03:47 96.9 114 16 105/69 (81) 97 01/07/19 03:16 89/57 (68) 01/07/19 00:40 94/67 (76) 01/07/19 00:30 97.5 125 16 86/54 (65) 97 01/06/19 21:00 Room Air Room Air 01/06/19 20:00 97.6 120 16 110/72 (85) 98 Intake and Output 01/06/19 01/07/19 19:00 07:00 Intake Total 650 ml Balance 650 ml Intake Oral 100 ml Other 550 ml # Voids 3 Objective General Appearance: WD/WN Lines, tubes and drains: peripheral HEENT: normocephalic, atraumatic Neck: non-tender, supple Respiratory/Chest: chest wall non-tender, lungs clear Breasts: no masses Cardiovascular/Chest: normal rate, no JVD Abdomen: normal bowel sounds Genitourinary/Rectal: normal genital exam, heme negative stool Extremities: normal range of motion, non-tender Skin Exam: normal pigmentation Neurologic: mottle lay up operator II-XII 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 Laboratory Tests 01/07/19 09:00: White Blood Count 7.3, Red Blood Count 4.25L, Hemoglobin 11.9L, Hematocrit 37.9L , Mean Corpuscular Volume 89, Mean Corpuscular Hemoglobin 28.0, Mean Corpuscular Hemoglobin Concent 31.4L, Red Cell Distribution Width 14.4, Platelet Count 224, Mean Platelet Volume 8.6, Neutrophils (%) (Auto) 61.9, Lymphocytes (%) (Auto) 20.6, Monocytes (%) (Auto) 12.7H, Eosinophils (%) (Auto) 3.5H, Basophils (%) (Auto) 1.4, Sodium Level 139, Potassium Level 4.5, Chloride Level 104, Carbon Dioxide Level 25, Anion Gap 10, Blood Urea Nitrogen 52H, Creatinine 1.4H, Estimat Glomerular Filtration Rate > 60, Glucose Level 134H, Calcium Level 10.6H Current Medications Medications (Trade) Dose Ordered Sig/Taco Route PRN Reason Start Time Stop Time Status Last Admin Dose Admin Acetaminophen (Tylenol) 650 mg Q4H PRN ORAL fever 12/26/18 19:30 01/25/19 19:29 Amlodipine Besylate (Norvasc) 10 mg DAILY ORAL 12/27/18 09:00 01/26/19 08:59 01/07/19 10:15 Benazepril HCl (Lotensin) 10 mg DAILY ORAL 12/27/18 09:00 01/26/19 08:59 01/07/19 10:15 Benztropine Mesylate (Cogentin) 1 mg THREE TIMES A DAY ORAL 12/27/18 18:00 01/26/19 17:59 01/07/19 12:11 Clonidine HCl (Catapres Tab) 0.1 mg Q6H PRN ORAL For High Blood Pressure 12/26/18 20:00 01/25/19 19:59 Clopidogrel Bisulfate (Plavix) 75 mg DAILY ORAL 12/27/18 09:00 01/26/19 08:59 01/07/19 09:11 Dextrose (Dextrose 50%) 25 ml Q30M PRN IV Hypoglycemia 12/26/18 19:45 01/25/19 19:33 Dextrose (Dextrose 50%) 50 ml Q30M PRN IV hypoglycemia 12/26/18 19:45 01/25/19 19:44 Divalproex Sodium (Depakote) 250 mg Q12HR ORAL 12/26/18 21:00 01/25/19 20:59 01/07/19 09:11 Gabapentin (Neurontin) 300 mg THREE TIMES A DAY ORAL 12/27/18 09:00 01/26/19 08:59 01/07/19 12:13 Haloperidol (Haldol) 5 mg TID ORAL 12/27/18 18:00 01/26/19 17:59 01/07/19 12:11 Heparin Sodium (Porcine) (Heparin 5000 units/ml) 5,000 units EVERY 12 HOURS SUBQ 12/26/18 21:00 01/25/19 20:59 01/07/19 09:14 Insulin Aspart (NovoLOG) BEFORE MEALS AND HS SUBQ 12/26/18 21:00 01/25/19 20:59 01/07/19 12:08 Magnesium Hydroxide (Mom) 30 ml DAILYPRN PRN ORAL Constipation 12/26/18 20:00 01/25/19 19:59 01/07/19 13:30 Nitroglycerin (Ntg) 0.4 mg Q5M PRN SL Prn Chest Pain 12/26/18 19:30 01/25/19 19:29 01/01/19 15:18 Ondansetron HCl (Zofran) 4 mg Q6H PRN IVP Nausea & Vomiting 12/26/18 19:30 01/25/19 19:29 12/29/18 09:04 Pantoprazole (Protonix) 40 mg DAILY ORAL 12/27/18 09:00 01/26/19 08:59 01/07/19 09:11 Paroxetine HCl (Paxil) 30 mg DAILY ORAL 12/27/18 09:00 01/26/19 08:59 01/07/19 09:12 Polyethylene Glycol (Miralax) 17 gm DAILYPRN PRN ORAL Constipation 12/26/18 20:00 01/25/19 19:29 Quetiapine Fumarate (SEROquel) 100 mg THREE TIMES A DAY ORAL 12/27/18 09:00 01/26/19 08:59 01/07/19 09:11 Tamsulosin HCl (Flomax) 0.4 mg BEDTIME ORAL 12/26/18 21:00 01/25/19 20:59 01/06/19 20:24 Trazodone HCl (Desyrel) 100 mg BEDTIME ORAL 12/26/18 21:00 01/25/19 20:59 01/06/19 20:25 Vanesa Skinner MD Jan 07, 2019 16:16
--- NOTE | 2019-01-07 16:52 | Surgery Progress Note ---
Surgery Progress Note Subjective Additional Comments No acute events patient resting comfortably states that he is feeling very well and anticipating discharge still refuses to have a wound debrided or cared for other than changing of dressings. Objective Last 24 Hour Vital Signs Date Time Temp Pulse Resp B/P (MAP) Pulse Ox O2 Delivery O2 Flow Rate FiO2 01/07/19 10:15 121/77 01/07/19 10:15 113 121/77 01/07/19 09:00 Room Air Room Air 01/07/19 08:00 96.6 113 16 121/77 (92) 98 01/07/19 03:47 96.9 114 16 105/69 (81) 97 01/07/19 03:16 89/57 (68) 01/07/19 00:40 94/67 (76) 01/07/19 00:30 97.5 125 16 86/54 (65) 97 01/06/19 21:00 Room Air Room Air 01/06/19 20:00 97.6 120 16 110/72 (85) 98 I&O Intake and Output 01/06/19 01/07/19 19:00 07:00 Intake Total 650 ml Balance 650 ml Intake Oral 100 ml Other 550 ml # Voids 3 Dressing: saturated Wound: other Drains: other Cardiovascular: RSR Respiratory: clear Abdomen: soft, flat, non-tender, non-distended Extremities: tenderness, cyanosis Laboratory Tests Test 01/07/19 09:00 White Blood Count 7.3 K/UL (4.8-10.8) Red Blood Count 4.25 M/UL (4.70-6.10) L Hemoglobin 11.9 G/DL (14.2-18.0) L Hematocrit 37.9 % (42.0-52.0) L Mean Corpuscular Volume 89 FL (80-99) Mean Corpuscular Hemoglobin 28.0 PG (27.0-31.0) Mean Corpuscular Hemoglobin Concent 31.4 G/DL (32.0-36.0) L Red Cell Distribution Width 14.4 % (11.6-14.8) Platelet Count 224 K/UL (150-450) Mean Platelet Volume 8.6 FL (6.5-10.1) Neutrophils (%) (Auto) 61.9 % (45.0-75.0) Lymphocytes (%) (Auto) 20.6 % (20.0-45.0) Monocytes (%) (Auto) 12.7 % (1.0-10.0) H Eosinophils (%) (Auto) 3.5 % (0.0-3.0) H Basophils (%) (Auto) 1.4 % (0.0-2.0) Sodium Level 139 MMOL/L (136-145) Potassium Level 4.5 MMOL/L (3.5-5.1) Chloride Level 104 MMOL/L (98-107) Carbon Dioxide Level 25 MMOL/L (21-32) Anion Gap 10 mmol/L (5-15) Blood Urea Nitrogen 52 mg/dL (7-18) H Creatinine 1.4 MG/DL (0.55-1.30) H Estimat Glomerular Filtration Rate > 60 mL/min (>60) Glucose Level 134 MG/DL (74-106) H Calcium Level 10.6 MG/DL (8.5-10.1) H Plan Problems: (1) Ulcer of left ankle Assessment & Plan: large chronic left ankle ulceration near circumferential on left ankle. full thickness with eschar on some areas and some areas of granulation tissue. no drainage. no fluctuance. tender, periwound okay. pulses diminished. calf okay. foot with decreased cap refill. please see photos Plain films noted venous duplex without dvt and patent. labs noted long discussion about wound and leg with patient. states he has no intention of having debridement, grafting, or amputation at anytime. will now allow wound to be cleaned properly. will only allow for dressing to be changed. -wash left ankle daily with NS. apply xeroform to wound, ABD, and wrap with kerlix -okay to d/c from surgical standpoint -outpatient wound care follow up thank you will follow with recs. Devon Sullivan Jan 07, 2019 16:52
--- NOTE | 2019-01-07 17:01 | Progress Note ---
DATE: 01/07/2019 SUBJECTIVE: This is a 68-year-old male patient with left ankle ulcers, very confused, disorganized, racing thoughts, pressured speech history, and severe mood lability. MENTAL STATUS EXAMINATION: This is a 68-year-old male. Appearance is disheveled. Attitude, irritable and agitated. Affect, guarded and restricted. Intellect poor. Mood depressed and anxious. Motor activity, psychomotor agitation. Attention span is poor. Orientation x2. Speech is pressured. Thought process, disorganized and illogical. Insight and judgment is poor. DIAGNOSIS: Schizoaffective, bipolar type. PLAN: Treat him with Depakote 250 mg twice a day, Haldol 5 mg 2 times a day, Seroquel 100 mg 2 times a day, trazodone 200 mg at bedtime. I am going to also treat him with a medication regimen of Paxil 30 mg daily, Neurontin 300 mg 3 times a day. Provide him with 20 minutes of cognitive behavioral therapy to help him identify his automatic negative thoughts help him convert those negative thoughts to more positive thoughts to reduce depression, anxiety, and suicidality. Chart reviewed. Discussed with staff. Seen and assessed at the bedside. 20 minutes of cognitive behavioral therapy provided. Uziel Collado M.D. DR: GIOVANNA JOB#: [id number] CC:
--- NOTE | 2019-01-07 18:30 | NUR ---
NURSE NOTES: dressing changed of L ankle. Cleansed area with NS, pat dried gently, applied Xeroforn, covered with ABD, kerlix-celina, secured with tape.
--- NOTE | 2019-01-07 19:14 | NUR ---
CASE MANAGEMENT: REVIEW SI: LEFT ANKLE ULCER . CELLULITIS T 98.6 HR 114 RR 16 BP 105/69 SAT 97% ROOM AIR H/H 11.9/37.9 BUN 52 CR 1.4 IS: DOXYCYCLINE PO Q12HR MORPHINE IV QHR PRN MED/SURG STATUS DCP: PATIENT IS FROM [facility]
--- NOTE | 2019-01-07 19:37 | NUR ---
HAND-OFF: Report given to OLGA Obrien.
--- NOTE | 2019-01-07 19:40 | NUR ---
NURSE NOTES: Patient in bed, no complaints of pain, not in acute respiratory distress. Instructed the use of call light. Call light and needs in reach. Bed in lowest position, lock engaged and alarm on. Will continue to monitor.
[2019-01-07] MEDS: Tamsulosin 0.4mg cap ORAL SCH (20:34)
[2019-01-07] MEDS: TraZODone 100mg tab ORAL SCH (20:34)
--- NOTE | 2019-01-07 23:21 | Cardiology Progress Note ---
Assessment/Plan Assessment/Plan 1. Most likely noncardiac, chest pain. The patient is currently chest pain free. A 12-lead electrocardiogram did not show any acute ischemic changes. Troponin I level has been negative. Echo with normal LV systolic function and LVEF of 60%, In face of the patient's severe debilitation, I would not consider any invasive cardiac workup, continue aspirin and statins, beta-ni for double product control. 2. History of diabetes mellitus. 3. History of hypertension. 4. Sinus tachycardia likely due to cogentin side effects. Subjective Subjective No cardiac events reported. Objective Last 24 Hour Vital Signs Date Time Temp Pulse Resp B/P (MAP) Pulse Ox O2 Delivery O2 Flow Rate FiO2 01/07/19 20:00 97.8 99 18 99/51 (67) 94 01/07/19 16:00 98.6 109 21 121/66 (84) 97 01/07/19 12:00 97.9 114 20 138/76 (96) 97 01/07/19 10:15 121/77 01/07/19 10:15 113 121/77 01/07/19 09:00 Room Air Room Air 01/07/19 08:00 96.6 113 16 121/77 (92) 98 01/07/19 03:47 96.9 114 16 105/69 (81) 97 01/07/19 03:16 89/57 (68) 01/07/19 00:40 94/67 (76) 01/07/19 00:30 97.5 125 16 86/54 (65) 97 Intake and Output 01/06/19 01/07/19 19:00 07:00 Intake Total 650 ml Balance 650 ml Intake Oral 100 ml Other 550 ml # Voids 3 2D Echo: LVEF 60%, Grade I LVDD Laboratory Tests Test 01/07/19 09:00 White Blood Count 7.3 K/UL (4.8-10.8) Red Blood Count 4.25 M/UL (4.70-6.10) L Hemoglobin 11.9 G/DL (14.2-18.0) L Hematocrit 37.9 % (42.0-52.0) L Mean Corpuscular Volume 89 FL (80-99) Mean Corpuscular Hemoglobin 28.0 PG (27.0-31.0) Mean Corpuscular Hemoglobin Concent 31.4 G/DL (32.0-36.0) L Red Cell Distribution Width 14.4 % (11.6-14.8) Platelet Count 224 K/UL (150-450) Mean Platelet Volume 8.6 FL (6.5-10.1) Neutrophils (%) (Auto) 61.9 % (45.0-75.0) Lymphocytes (%) (Auto) 20.6 % (20.0-45.0) Monocytes (%) (Auto) 12.7 % (1.0-10.0) H Eosinophils (%) (Auto) 3.5 % (0.0-3.0) H Basophils (%) (Auto) 1.4 % (0.0-2.0) Sodium Level 139 MMOL/L (136-145) Potassium Level 4.5 MMOL/L (3.5-5.1) Chloride Level 104 MMOL/L (98-107) Carbon Dioxide Level 25 MMOL/L (21-32) Anion Gap 10 mmol/L (5-15) Blood Urea Nitrogen 52 mg/dL (7-18) H Creatinine 1.4 MG/DL (0.55-1.30) H Estimat Glomerular Filtration Rate > 60 mL/min (>60) Glucose Level 134 MG/DL (74-106) H Calcium Level 10.6 MG/DL (8.5-10.1) H Objective HEENT: Atraumatic and normocephalic. Anicteric. Pupils are equal, round, and reactive to light and accommodation. Extraocular muscles intact. NECK: JVP is less than 5 cm. No carotid bruits. Carotid upstrokes 2+ bilaterally. CARDIOVASCULAR: Normal S1, S2. Regular rate and rhythm. Tachycardic. No murmurs, gallops, or rubs. PMI is at fourth intercostal space in the midclavicular line. LUNGS: Clear to auscultation bilaterally. ABDOMEN: Soft, nontender, and nondistended. No hepatosplenomegaly. Positive bowel sounds. EXTREMITIES: Left leg ulceration. Left heel and foot with dressing, edema surrounding the ulcerations. Jimenez Polo MD Jan 07, 2019 23:21
[2019-01-08] VITALS: BP 97/68
[2019-01-08 04:00] VITALS: BP 103/61
[2019-01-08] MEDS: NovoLOG Insulin Flexpen SUBQ SCH ×4 (06:30→21:00)
[2019-01-08 07:17] LABS: BASOPHILS % (AUTO) 1.7 % (0.0-2.0); EOSINOPHILS % (AUTO) 3.6 % (0.0-3.0); HEMOGLOBIN 11.6 G/DL (14.2-18.0); LYMPHOCYTES % (AUTO) 19.8 % (20.0-45.0); MEAN CORPUSCULAR VOLUME 89 FL (80-99); MONOCYTES % (AUTO) 12.2 % (1.0-10.0); NEUTROPHILS % (AUTO) 62.8 % (45.0-75.0); PLATELET COUNT 278 K/UL (150-450); RED BLOOD COUNT 4.16 M/UL (4.70-6.10); RED CELL DISTRIBUTION WIDTH 14.5 % (11.6-14.8); WHITE BLOOD COUNT 8.7 K/UL (4.8-10.8)
[2019-01-08 07:23] LABS: ANION GAP 8 mmol/L (5-15); BLOOD UREA NITROGEN 44 mg/dL (7-18); CALCIUM 11.1 MG/DL (8.5-10.1); CARBON DIOXIDE 28 MMOL/L (21-32); CHLORIDE 105 MMOL/L (98-107); CREATININE 1.4 MG/DL (0.55-1.30); POTASSIUM 5.4 MMOL/L (3.5-5.1); SODIUM 141 MMOL/L (136-145)
--- NOTE | 2019-01-08 07:47 | NUR ---
HAND-OFF: Report given to OLGA Ponce.
--- NOTE | 2019-01-08 07:54 | NUR ---
NURSE NOTES: Patient received in stable condition, sleeping in bed. Breathing unlabored on room air. No signs of respiratory distress or pain observed. IV site intact on left arm. Bed locked in low position, call light placed within reach. Will continue to monitor.
[2019-01-08 08:00] VITALS: BP 133/64
[2019-01-08] MEDS: PARoxetine 10mg tab ORAL SCH (08:36)
[2019-01-08] MEDS: Benazepril 10mg tab ORAL SCH (08:38)
[2019-01-08] MEDS: Benztropine 1mg tab ORAL SCH ×3 (08:38→17:04)
[2019-01-08] MEDS: Heparin 5000 units/ml inj SUBQ SCH ×2 (08:43→21:00)
[2019-01-08 12:00] VITALS: BP 101/64
--- NOTE | 2019-01-08 13:10 | Surgery Progress Note ---
Surgery Progress Note Subjective Symptoms: improved, tolerating diet, passing flatus, BM Objective Last 24 Hour Vital Signs Date Time Temp Pulse Resp B/P (MAP) Pulse Ox O2 Delivery O2 Flow Rate FiO2 01/08/19 12:00 94.2 108 16 101/64 (76) 96 01/08/19 09:00 Room Air Room Air 01/08/19 08:38 103/61 01/08/19 08:38 105 103/61 01/08/19 08:00 96.8 97 18 133/64 (87) 94 01/08/19 04:00 97.9 105 18 103/61 (75) 97 01/08/19 00:00 98.2 110 18 97/68 (78) 95 01/07/19 21:00 Room Air Room Air 01/07/19 20:00 97.8 99 18 99/51 (67) 94 01/07/19 16:00 98.6 109 21 121/66 (84) 97 I&O Intake and Output 01/07/19 01/08/19 18:59 06:59 Intake Total 460 ml Balance 460 ml Intake Oral 460 ml # Voids 3 Dressing: saturated Wound: other Drains: none Cardiovascular: RSR Respiratory: clear Abdomen: soft, flat, non-tender, present bowel sounds, non-distended Extremities: tenderness, cyanosis Laboratory Tests Test 01/08/19 06:20 White Blood Count 8.7 K/UL (4.8-10.8) Red Blood Count 4.16 M/UL (4.70-6.10) L Hemoglobin 11.6 G/DL (14.2-18.0) L Hematocrit 37.0 % (42.0-52.0) L Mean Corpuscular Volume 89 FL (80-99) Mean Corpuscular Hemoglobin 28.0 PG (27.0-31.0) Mean Corpuscular Hemoglobin Concent 31.4 G/DL (32.0-36.0) L Red Cell Distribution Width 14.5 % (11.6-14.8) Platelet Count 278 K/UL (150-450) Mean Platelet Volume 9.1 FL (6.5-10.1) Neutrophils (%) (Auto) 62.8 % (45.0-75.0) Lymphocytes (%) (Auto) 19.8 % (20.0-45.0) L Monocytes (%) (Auto) 12.2 % (1.0-10.0) H Eosinophils (%) (Auto) 3.6 % (0.0-3.0) H Basophils (%) (Auto) 1.7 % (0.0-2.0) Sodium Level 141 MMOL/L (136-145) Potassium Level 5.4 MMOL/L (3.5-5.1) H Chloride Level 105 MMOL/L (98-107) Carbon Dioxide Level 28 MMOL/L (21-32) Anion Gap 8 mmol/L (5-15) Blood Urea Nitrogen 44 mg/dL (7-18) H Creatinine 1.4 MG/DL (0.55-1.30) H Estimat Glomerular Filtration Rate > 60 mL/min (>60) Glucose Level 117 MG/DL (74-106) H Calcium Level 11.1 MG/DL (8.5-10.1) H Plan Problems: (1) Ulcer of left ankle Assessment & Plan: large chronic left ankle ulceration near circumferential on left ankle. full thickness with eschar on some areas and some areas of granulation tissue. no drainage. no fluctuance. tender, periwound okay. pulses diminished. calf okay. foot with decreased cap refill. please see photos Plain films noted venous duplex without dvt and patent. labs noted long discussion about wound and leg with patient. states he has no intention of having debridement, grafting, or amputation at anytime. will now allow wound to be cleaned properly. will only allow for dressing to be changed. -wash left ankle daily with NS. apply xeroform to wound, ABD, and wrap with kerlix -okay to d/c from surgical standpoint -outpatient wound care follow up thank you will follow with recs. Devon Sullivan Jan 08, 2019 13:10
--- NOTE | 2019-01-08 14:25 | Infectious Diseases Prog Note ---
Assessment/Plan Assessment/Plan Assessment: L ankle ulcer- mild gavin wound cellulitis;ulcer itself not infected Wnd : Morg. M , StrpGrpG, cantor S PsA( colonizers ) -Xray ankle: No definite acute bony process. Possible lateral soft tissue irregularity-correlate with clinical findings -Bcx neg Afebrile Mild leukocytosis; SP DM2 HTN COPD SNF resident Plan: -Continue to monitor off abx as he is clinically stable -01/03 SP Doxycycline #7 IV Vancomycin #3 12/28 -s/p IV Vancomycin x1 12/26 -Monitor CBC/CMP, temperatures -wound care Subjective Allergies: Coded Allergies: THIORIDAZINE (Unverified Allergy, Mild, HIVES, 04/06/15) PENICILLIN (Unverified Allergy, Unknown, 06/15/15) PENICILLINS (Unverified Allergy, Unknown, 11/24/17) Subjective afebrile no leukocytosis off abx now Objective Vital Signs Last 24 Hour Vital Signs Date Time Temp Pulse Resp B/P (MAP) Pulse Ox O2 Delivery O2 Flow Rate FiO2 01/08/19 12:00 94.2 108 16 101/64 (76) 96 01/08/19 09:00 Room Air Room Air 01/08/19 08:38 103/61 01/08/19 08:38 105 103/61 01/08/19 08:00 96.8 97 18 133/64 (87) 94 01/08/19 04:00 97.9 105 18 103/61 (75) 97 01/08/19 00:00 98.2 110 18 97/68 (78) 95 01/07/19 21:00 Room Air Room Air 01/07/19 20:00 97.8 99 18 99/51 (67) 94 01/07/19 16:00 98.6 109 21 121/66 (84) 97 Height (Feet): 5 Height (Inches): 10.00 Weight (Pounds): 174 Objective General Appearance: no apparent distress, alert, non-toxic HEENT: normocephalic, atraumatic bilateral eye PERRL, normal pharynx Neck: full range of motion, supple/symm/no masses Respiratory: chest non-tender, lungs clear, normal breath sounds, speaking full sentences Cardiovascular : regular rate, rhythm, no edema Gastrointestinal: normal bowel sounds, non tender, soft, non-distended, no guarding, no rebound Genitourinary: normal inspection, no CVA tenderness Musculoskeletal: back normal, gait/station normal, normal range of motion, non- tender Neurologic: alert, oriented x3, responsive, motor strength/tone normal, sensory intact, speech normal Psychiatric: judgement/insight normal, memory normal, mood/affect normal, no suicidal/homicidal ideation Skin: other - large ulcer to L ankle. surrounding erythema/induration Laboratory Tests Test 01/08/19 06:20 White Blood Count 8.7 K/UL (4.8-10.8) Red Blood Count 4.16 M/UL (4.70-6.10) L Hemoglobin 11.6 G/DL (14.2-18.0) L Hematocrit 37.0 % (42.0-52.0) L Mean Corpuscular Volume 89 FL (80-99) Mean Corpuscular Hemoglobin 28.0 PG (27.0-31.0) Mean Corpuscular Hemoglobin Concent 31.4 G/DL (32.0-36.0) L Red Cell Distribution Width 14.5 % (11.6-14.8) Platelet Count 278 K/UL (150-450) Mean Platelet Volume 9.1 FL (6.5-10.1) Neutrophils (%) (Auto) 62.8 % (45.0-75.0) Lymphocytes (%) (Auto) 19.8 % (20.0-45.0) L Monocytes (%) (Auto) 12.2 % (1.0-10.0) H Eosinophils (%) (Auto) 3.6 % (0.0-3.0) H Basophils (%) (Auto) 1.7 % (0.0-2.0) Sodium Level 141 MMOL/L (136-145) Potassium Level 5.4 MMOL/L (3.5-5.1) H Chloride Level 105 MMOL/L (98-107) Carbon Dioxide Level 28 MMOL/L (21-32) Anion Gap 8 mmol/L (5-15) Blood Urea Nitrogen 44 mg/dL (7-18) H Creatinine 1.4 MG/DL (0.55-1.30) H Estimat Glomerular Filtration Rate > 60 mL/min (>60) Glucose Level 117 MG/DL (74-106) H Calcium Level 11.1 MG/DL (8.5-10.1) H Current Medications Medications (Trade) Dose Ordered Sig/Taco Route PRN Reason Start Time Stop Time Status Last Admin Dose Admin Acetaminophen (Tylenol) 650 mg Q4H PRN ORAL fever 12/26/18 19:30 01/25/19 19:29 Amlodipine Besylate (Norvasc) 10 mg DAILY ORAL 12/27/18 09:00 01/26/19 08:59 01/08/19 08:38 Benazepril HCl (Lotensin) 10 mg DAILY ORAL 12/27/18 09:00 01/26/19 08:59 01/08/19 08:38 Benztropine Mesylate (Cogentin) 1 mg THREE TIMES A DAY ORAL 12/27/18 18:00 01/26/19 17:59 01/08/19 12:42 Clonidine HCl (Catapres Tab) 0.1 mg Q6H PRN ORAL For High Blood Pressure 12/26/18 20:00 01/25/19 19:59 Clopidogrel Bisulfate (Plavix) 75 mg DAILY ORAL 12/27/18 09:00 01/26/19 08:59 01/08/19 08:40 Dextrose (Dextrose 50%) 25 ml Q30M PRN IV Hypoglycemia 12/26/18 19:45 01/25/19 19:33 Dextrose (Dextrose 50%) 50 ml Q30M PRN IV hypoglycemia 12/26/18 19:45 01/25/19 19:44 Divalproex Sodium (Depakote) 250 mg Q12HR ORAL 12/26/18 21:00 01/25/19 20:59 01/08/19 08:37 Gabapentin (Neurontin) 300 mg THREE TIMES A DAY ORAL 12/27/18 09:00 01/26/19 08:59 01/08/19 12:42 Haloperidol (Haldol) 5 mg TID ORAL 12/27/18 18:00 01/26/19 17:59 01/08/19 12:42 Heparin Sodium (Porcine) (Heparin 5000 units/ml) 5,000 units EVERY 12 HOURS SUBQ 12/26/18 21:00 01/25/19 20:59 01/08/19 08:43 Insulin Aspart (NovoLOG) BEFORE MEALS AND HS SUBQ 12/26/18 21:00 01/25/19 20:59 01/07/19 20:35 Magnesium Hydroxide (Mom) 30 ml DAILYPRN PRN ORAL Constipation 12/26/18 20:00 01/25/19 19:59 01/07/19 13:30 Nitroglycerin (Ntg) 0.4 mg Q5M PRN SL Prn Chest Pain 12/26/18 19:30 01/25/19 19:29 01/01/19 15:18 Ondansetron HCl (Zofran) 4 mg Q6H PRN IVP Nausea & Vomiting 12/26/18 19:30 01/25/19 19:29 12/29/18 09:04 Pantoprazole (Protonix) 40 mg DAILY ORAL 12/27/18 09:00 01/26/19 08:59 01/08/19 08:39 Paroxetine HCl (Paxil) 30 mg DAILY ORAL 12/27/18 09:00 01/26/19 08:59 01/08/19 08:36 Polyethylene Glycol (Miralax) 17 gm DAILYPRN PRN ORAL Constipation 12/26/18 20:00 01/25/19 19:29 Quetiapine Fumarate (SEROquel) 100 mg THREE TIMES A DAY ORAL 12/27/18 09:00 01/26/19 08:59 01/08/19 12:43 Tamsulosin HCl (Flomax) 0.4 mg BEDTIME ORAL 12/26/18 21:00 01/25/19 20:59 01/07/19 20:34 Trazodone HCl (Desyrel) 100 mg BEDTIME ORAL 12/26/18 21:00 01/25/19 20:59 01/07/19 20:34 Mireya Campos M.D. Jan 08, 2019 14:25
--- NOTE | 2019-01-08 15:45 | General Progress Note ---
Assessment/Plan Problem List: (1) History of CVA (cerebrovascular accident) ICD Codes: Z86.73 - Personal history of transient ischemic attack (TIA), and cerebral infarction without residual deficits SNOMED: 051069059 (2) Cellulitis ICD Codes: L03.90 - Cellulitis, unspecified SNOMED: 057515378 (3) Anemia ICD Codes: D64.9 - Anemia SNOMED: 390639070 (4) Diabetes ICD Codes: E11.9 - Diabetes SNOMED: 95736000 (5) Hypertension ICD Codes: I10 - Hypertension SNOMED: 08063382 (6) Failure to thrive in adult ICD Codes: R62.7 - Adult failure to thrive SNOMED: 648896112 (7) Ulcer of left ankle ICD Codes: L97.329 - Non-pressure chronic ulcer of left ankle with unspecified severity SNOMED: 849273614, 96673861 Qualifiers: Qualified Codes: L97.322 - Non-pressure chronic ulcer of left ankle with fat layer exposed Status: stable, progressing Assessment/Plan wound care abx pain control cbc bmp am pam veronica Subjective Constitutional: Reports: weakness Allergies: Coded Allergies: THIORIDAZINE (Unverified Allergy, Mild, HIVES, 04/06/15) PENICILLIN (Unverified Allergy, Unknown, 06/15/15) PENICILLINS (Unverified Allergy, Unknown, 11/24/17) All Systems: reviewed and negative except above Subjective sl foot pain Objective Last 24 Hour Vital Signs Date Time Temp Pulse Resp B/P (MAP) Pulse Ox O2 Delivery O2 Flow Rate FiO2 01/08/19 12:00 94.2 108 16 101/64 (76) 96 01/08/19 09:00 Room Air Room Air 01/08/19 08:38 103/61 01/08/19 08:38 105 103/61 01/08/19 08:00 96.8 97 18 133/64 (87) 94 01/08/19 04:00 97.9 105 18 103/61 (75) 97 01/08/19 00:00 98.2 110 18 97/68 (78) 95 01/07/19 21:00 Room Air Room Air 01/07/19 20:00 97.8 99 18 99/51 (67) 94 01/07/19 16:00 98.6 109 21 121/66 (84) 97 Intake and Output 01/07/19 01/08/19 19:00 07:00 Intake Total 460 ml Balance 460 ml Intake Oral 460 ml # Voids 3 Laboratory Tests 01/08/19 06:20: White Blood Count 8.7, Red Blood Count 4.16L, Hemoglobin 11.6L, Hematocrit 37.0L , Mean Corpuscular Volume 89, Mean Corpuscular Hemoglobin 28.0, Mean Corpuscular Hemoglobin Concent 31.4L, Red Cell Distribution Width 14.5, Platelet Count 278, Mean Platelet Volume 9.1, Neutrophils (%) (Auto) 62.8, Lymphocytes (%) (Auto) 19.8L, Monocytes (%) (Auto) 12.2H, Eosinophils (%) (Auto ) 3.6H, Basophils (%) (Auto) 1.7, Sodium Level 141, Potassium Level 5.4H, Chloride Level 105, Carbon Dioxide Level 28, Anion Gap 8, Blood Urea Nitrogen 44H, Creatinine 1.4H, Estimat Glomerular Filtration Rate > 60, Glucose Level 117H, Calcium Level 11.1H Height (Feet): 5 Height (Inches): 10.00 Weight (Pounds): 174 General Appearance: lethargic EENT: normal ENT inspection Neck: normal alignment Cardiovascular: normal peripheral pulses, normal rate, regular rhythm Respiratory/Chest: chest wall non-tender, lungs clear, normal breath sounds Abdomen: normal bowel sounds, non tender, soft Extremities: normal inspection Edema: no edema noted Arm (L), no edema noted Arm (R), no edema noted Leg (L), no edema noted Leg (R), no edema noted Pedal (L), no edema noted Pedal (R), no edema noted Generalized Neurologic: responsive, motor weakness Skin: normal pigmentation, warm/dry Objective foot dressing c&d Jarek Gonzalez DO Jan 08, 2019 15:45
--- NOTE | 2019-01-08 15:47 | Pulmonology Progress Note ---
Assessment/Plan Problems: (1) Cellulitis (2) Severe anemia (3) Hypertension (4) UTI (urinary tract infection) (5) Schizoaffective disorder (6) Diabetes (7) History of CVA (cerebrovascular accident) Assessment/Plan all reviewed doing better, no new complains in better spirit wound care IV abx check cultures symptomatic treatment respiratory treatment dvt prophylaxis. dc planning in progress Subjective ROS Limited/Unobtainable: No Constitutional: Reports: no symptoms HEENT: Repors: no symptoms Respiratory: Reports: no symptoms Allergies: Coded Allergies: THIORIDAZINE (Unverified Allergy, Mild, HIVES, 04/06/15) PENICILLIN (Unverified Allergy, Unknown, 06/15/15) PENICILLINS (Unverified Allergy, Unknown, 11/24/17) Objective Last 24 Hour Vital Signs Date Time Temp Pulse Resp B/P (MAP) Pulse Ox O2 Delivery O2 Flow Rate FiO2 01/08/19 12:00 94.2 108 16 101/64 (76) 96 01/08/19 09:00 Room Air Room Air 01/08/19 08:38 103/61 01/08/19 08:38 105 103/61 01/08/19 08:00 96.8 97 18 133/64 (87) 94 01/08/19 04:00 97.9 105 18 103/61 (75) 97 01/08/19 00:00 98.2 110 18 97/68 (78) 95 01/07/19 21:00 Room Air Room Air 01/07/19 20:00 97.8 99 18 99/51 (67) 94 01/07/19 16:00 98.6 109 21 121/66 (84) 97 Intake and Output 01/07/19 01/08/19 19:00 07:00 Intake Total 460 ml Balance 460 ml Intake Oral 460 ml # Voids 3 Objective General Appearance: WD/WN Lines, tubes and drains: peripheral HEENT: normocephalic, atraumatic Neck: non-tender, supple Respiratory/Chest: chest wall non-tender, lungs clear Breasts: no masses Cardiovascular/Chest: normal rate, no JVD Abdomen: normal bowel sounds Genitourinary/Rectal: normal genital exam, heme negative stool Extremities: normal range of motion, non-tender Skin Exam: normal pigmentation 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 Laboratory Tests 01/08/19 06:20: White Blood Count 8.7, Red Blood Count 4.16L, Hemoglobin 11.6L, Hematocrit 37.0L , Mean Corpuscular Volume 89, Mean Corpuscular Hemoglobin 28.0, Mean Corpuscular Hemoglobin Concent 31.4L, Red Cell Distribution Width 14.5, Platelet Count 278, Mean Platelet Volume 9.1, Neutrophils (%) (Auto) 62.8, Lymphocytes (%) (Auto) 19.8L, Monocytes (%) (Auto) 12.2H, Eosinophils (%) (Auto ) 3.6H, Basophils (%) (Auto) 1.7, Sodium Level 141, Potassium Level 5.4H, Chloride Level 105, Carbon Dioxide Level 28, Anion Gap 8, Blood Urea Nitrogen 44H, Creatinine 1.4H, Estimat Glomerular Filtration Rate > 60, Glucose Level 117H, Calcium Level 11.1H Current Medications Medications (Trade) Dose Ordered Sig/Taco Route PRN Reason Start Time Stop Time Status Last Admin Dose Admin Acetaminophen (Tylenol) 650 mg Q4H PRN ORAL fever 12/26/18 19:30 01/25/19 19:29 Amlodipine Besylate (Norvasc) 10 mg DAILY ORAL 12/27/18 09:00 01/26/19 08:59 01/08/19 08:38 Benazepril HCl (Lotensin) 10 mg DAILY ORAL 12/27/18 09:00 01/26/19 08:59 01/08/19 08:38 Benztropine Mesylate (Cogentin) 1 mg THREE TIMES A DAY ORAL 12/27/18 18:00 01/26/19 17:59 01/08/19 12:42 Clonidine HCl (Catapres Tab) 0.1 mg Q6H PRN ORAL For High Blood Pressure 12/26/18 20:00 01/25/19 19:59 Clopidogrel Bisulfate (Plavix) 75 mg DAILY ORAL 12/27/18 09:00 01/26/19 08:59 01/08/19 08:40 Dextrose (Dextrose 50%) 25 ml Q30M PRN IV Hypoglycemia 12/26/18 19:45 01/25/19 19:33 Dextrose (Dextrose 50%) 50 ml Q30M PRN IV hypoglycemia 12/26/18 19:45 01/25/19 19:44 Divalproex Sodium (Depakote) 250 mg Q12HR ORAL 12/26/18 21:00 01/25/19 20:59 01/08/19 08:37 Gabapentin (Neurontin) 300 mg THREE TIMES A DAY ORAL 12/27/18 09:00 01/26/19 08:59 01/08/19 12:42 Haloperidol (Haldol) 5 mg TID ORAL 12/27/18 18:00 01/26/19 17:59 01/08/19 12:42 Heparin Sodium (Porcine) (Heparin 5000 units/ml) 5,000 units EVERY 12 HOURS SUBQ 12/26/18 21:00 01/25/19 20:59 01/08/19 08:43 Insulin Aspart (NovoLOG) BEFORE MEALS AND HS SUBQ 12/26/18 21:00 01/25/19 20:59 01/07/19 20:35 Magnesium Hydroxide (Mom) 30 ml DAILYPRN PRN ORAL Constipation 12/26/18 20:00 01/25/19 19:59 01/07/19 13:30 Nitroglycerin (Ntg) 0.4 mg Q5M PRN SL Prn Chest Pain 12/26/18 19:30 01/25/19 19:29 01/01/19 15:18 Ondansetron HCl (Zofran) 4 mg Q6H PRN IVP Nausea & Vomiting 12/26/18 19:30 01/25/19 19:29 12/29/18 09:04 Pantoprazole (Protonix) 40 mg DAILY ORAL 12/27/18 09:00 01/26/19 08:59 01/08/19 08:39 Paroxetine HCl (Paxil) 30 mg DAILY ORAL 12/27/18 09:00 01/26/19 08:59 01/08/19 08:36 Polyethylene Glycol (Miralax) 17 gm DAILYPRN PRN ORAL Constipation 12/26/18 20:00 01/25/19 19:29 Quetiapine Fumarate (SEROquel) 100 mg THREE TIMES A DAY ORAL 12/27/18 09:00 01/26/19 08:59 01/08/19 12:43 Tamsulosin HCl (Flomax) 0.4 mg BEDTIME ORAL 12/26/18 21:00 01/25/19 20:59 01/07/19 20:34 Trazodone HCl (Desyrel) 100 mg BEDTIME ORAL 12/26/18 21:00 01/25/19 20:59 01/07/19 20:34 Vanesa Skinner MD Jan 08, 2019 15:47
[2019-01-08 16:00] VITALS: BP 129/68
--- NOTE | 2019-01-08 18:30 | Progress Note ---
DATE: 01/08/2019 SUBJECTIVE: The patient is a 68-year-old male admitted with left ankle ulcers and cellulitis. He is still very hyperverbal, confused, disorganized, and mood labile. Still very impulsive and unpredictable. MENTAL STATUS EXAMINATION: This is a 68-year-old male. His appearance is disheveled. Attitude, irritable and agitated. Affect, guarded and restricted. Intellect, poor. Mood, depressed and anxious. Motor activity, psychomotor agitation. Attention span is poor. Orientation x2. Speech is pressured, nonsensical. Thought process, disorganized and illogical. Thought content, auditory hallucinations and paranoid delusions. Insight and judgment is poor. DIAGNOSIS: Schizoaffective, bipolar type. PLAN: Treat him with Depakote 250 mg twice a day. Also, continue him on Haldol 5 mg two times a day and also Seroquel at a dose of 100 mg three times a day. Also, continue Paxil 30 mg p.o. daily as well as trazodone 100 mg nightly. Continue him on Neurontin three times a day as well. Provided him with 20 minutes of cognitive behavioral therapy to help him identify his automatic negative thoughts and help him convert those negative thoughts to more positive thoughts to reduce depression, anxiety, and mood lability. Chart is reviewed. Discussed with staff. Seen and assessed in his room. Uziel Collado M.D. DR: BREANNE JOB#: [id number] CC:
--- NOTE | 2019-01-08 19:31 | NUR ---
HAND-OFF: Report given to Tuyet ESPINOZA.
--- NOTE | 2019-01-08 19:32 | NUR ---
NURSE NOTES: Patient awake in bed, no complaints of pain, not in acute respiratory distress. Instructed the use of call light. Call light and needs in reach. Bed in lowest position, lock engaged and alarm on. Will continue to monitor.
[2019-01-08 20:00] VITALS: BP 123/69
[2019-01-08] MEDS: Tamsulosin 0.4mg cap ORAL SCH (21:06)
[2019-01-08] MEDS: TraZODone 100mg tab ORAL SCH (21:06)
[2019-01-09] VITALS: BP 127/71
[2019-01-09 04:00] VITALS: BP 125/73
[2019-01-09] MEDS: NovoLOG Insulin Flexpen SUBQ SCH ×4 (05:40→20:32)
--- NOTE | 2019-01-09 07:06 | NUR ---
HAND-OFF: Report given to OLGA Jaime.
[2019-01-09 08:00] VITALS: BP 118/78
--- NOTE | 2019-01-09 08:04 | NUR ---
NURSE NOTES: Report received from OLGA Russell. Pt in bed, asleep, respiration regular and unlabored, no apparent distress noted, bed in lowest position, call light within reach
[2019-01-09] MEDS: PARoxetine 10mg tab ORAL SCH (09:09)
[2019-01-09] MEDS: Benazepril 10mg tab ORAL SCH (09:09)
[2019-01-09] MEDS: Benztropine 1mg tab ORAL SCH ×3 (09:10→17:40)
[2019-01-09] MEDS: Heparin 5000 units/ml inj SUBQ SCH ×2 (09:11→20:31)
[2019-01-09 09:12] LABS: BASOPHILS % (AUTO) 1.3 % (0.0-2.0); EOSINOPHILS % (AUTO) 3.6 % (0.0-3.0); HEMATOCRIT 40.3 % (42.0-52.0); HEMOGLOBIN 12.6 G/DL (14.2-18.0); LYMPHOCYTES % (AUTO) 20.3 % (20.0-45.0); MEAN CORPUSCULAR VOLUME 89 FL (80-99); MONOCYTES % (AUTO) 10.5 % (1.0-10.0); NEUTROPHILS % (AUTO) 64.4 % (45.0-75.0); PLATELET COUNT 267 K/UL (150-450); RED BLOOD COUNT 4.53 M/UL (4.70-6.10); RED CELL DISTRIBUTION WIDTH 14.1 % (11.6-14.8); WHITE BLOOD COUNT 8.6 K/UL (4.8-10.8)
[2019-01-09 09:30] LABS: ANION GAP 9 mmol/L (5-15); BLOOD UREA NITROGEN 43 mg/dL (7-18); CALCIUM 11.3 MG/DL (8.5-10.1); CARBON DIOXIDE 26 MMOL/L (21-32); CHLORIDE 103 MMOL/L (98-107); CREATININE 1.2 MG/DL (0.55-1.30); POTASSIUM 4.6 MMOL/L (3.5-5.1); SODIUM 138 MMOL/L (136-145)
[2019-01-09 12:00] VITALS: BP 111/69
--- NOTE | 2019-01-09 13:05 | Pulmonology Progress Note ---
Assessment/Plan Problems: (1) Cellulitis (2) Severe anemia (3) Hypertension (4) UTI (urinary tract infection) (5) Schizoaffective disorder (6) Diabetes (7) History of CVA (cerebrovascular accident) Assessment/Plan all reviewed doing better, no new complains in better spirit wound care check cultures symptomatic treatment respiratory treatment dvt prophylaxis. dc planning in progress Subjective ROS Limited/Unobtainable: No Constitutional: Reports: no symptoms HEENT: Repors: no symptoms Respiratory: Reports: no symptoms Allergies: Coded Allergies: THIORIDAZINE (Unverified Allergy, Mild, HIVES, 04/06/15) PENICILLIN (Unverified Allergy, Unknown, 06/15/15) PENICILLINS (Unverified Allergy, Unknown, 11/24/17) Objective Last 24 Hour Vital Signs Date Time Temp Pulse Resp B/P (MAP) Pulse Ox O2 Delivery O2 Flow Rate FiO2 01/09/19 12:00 97.3 126 20 111/69 (83) 98 01/09/19 09:10 119 118/78 01/09/19 09:09 118/78 01/09/19 09:00 Room Air Room Air 01/09/19 08:00 98.2 119 17 118/78 (91) 100 01/09/19 04:00 97.7 99 18 125/73 (90) 97 01/09/19 00:00 98.0 105 18 127/71 (89) 99 01/08/19 21:00 Room Air Room Air 01/08/19 20:00 97.9 108 18 123/69 (87) 98 01/08/19 16:00 97.4 90 18 129/68 (88) 96 Intake and Output 01/08/19 01/09/19 18:59 06:59 Intake Total 360 ml 200 ml Balance 360 ml 200 ml Intake Oral 360 ml 200 ml # Voids 9 8 Objective General Appearance: WD/WN Lines, tubes and drains: peripheral HEENT: normocephalic, atraumatic Neck: non-tender, supple Respiratory/Chest: chest wall non-tender, lungs clear Breasts: no masses Cardiovascular/Chest: normal rate, no JVD Abdomen: normal bowel sounds Genitourinary/Rectal: normal genital exam, heme negative stool Extremities: normal range of motion, non-tender Skin Exam: normal pigmentation 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 Laboratory Tests 3/13/19 08:50: White Blood Count 8.6, Red Blood Count 4.53L, Hemoglobin 12.6L, Hematocrit 40.3L , Mean Corpuscular Volume 89, Mean Corpuscular Hemoglobin 27.7, Mean Corpuscular Hemoglobin Concent 31.2L, Red Cell Distribution Width 14.1, Platelet Count 267, Mean Platelet Volume 8.3, Neutrophils (%) (Auto) 64.4, Lymphocytes (%) (Auto) 20.3, Monocytes (%) (Auto) 10.5H, Eosinophils (%) (Auto) 3.6H, Basophils (%) (Auto) 1.3, Sodium Level 138, Potassium Level 4.6, Chloride Level 103, Carbon Dioxide Level 26, Anion Gap 9, Blood Urea Nitrogen 43H, Creatinine 1.2, Estimat Glomerular Filtration Rate > 60, Glucose Level 109H, Calcium Level 11.3H Current Medications Medications (Trade) Dose Ordered Sig/Taco Route PRN Reason Start Time Stop Time Status Last Admin Dose Admin Acetaminophen (Tylenol) 650 mg Q4H PRN ORAL fever 12/26/18 19:30 01/25/19 19:29 Amlodipine Besylate (Norvasc) 10 mg DAILY ORAL 12/27/18 09:00 01/26/19 08:59 01/09/19 09:10 Benazepril HCl (Lotensin) 10 mg DAILY ORAL 12/27/18 09:00 01/26/19 08:59 01/09/19 09:09 Benztropine Mesylate (Cogentin) 1 mg THREE TIMES A DAY ORAL 12/27/18 18:00 01/26/19 17:59 01/09/19 12:33 Clonidine HCl (Catapres Tab) 0.1 mg Q6H PRN ORAL For High Blood Pressure 12/26/18 20:00 01/25/19 19:59 Clopidogrel Bisulfate (Plavix) 75 mg DAILY ORAL 12/27/18 09:00 01/26/19 08:59 01/09/19 09:10 Dextrose (Dextrose 50%) 25 ml Q30M PRN IV Hypoglycemia 12/26/18 19:45 01/25/19 19:33 Dextrose (Dextrose 50%) 50 ml Q30M PRN IV hypoglycemia 12/26/18 19:45 01/25/19 19:44 Divalproex Sodium (Depakote) 250 mg Q12HR ORAL 12/26/18 21:00 01/25/19 20:59 01/09/19 09:10 Gabapentin (Neurontin) 300 mg THREE TIMES A DAY ORAL 12/27/18 09:00 01/26/19 08:59 01/09/19 12:33 Haloperidol (Haldol) 5 mg TID ORAL 12/27/18 18:00 01/26/19 17:59 01/09/19 12:33 Heparin Sodium (Porcine) (Heparin 5000 units/ml) 5,000 units EVERY 12 HOURS SUBQ 12/26/18 21:00 01/25/19 20:59 01/09/19 09:11 Insulin Aspart (NovoLOG) BEFORE MEALS AND HS SUBQ 12/26/18 21:00 01/25/19 20:59 01/09/19 12:34 Magnesium Hydroxide (Mom) 30 ml DAILYPRN PRN ORAL Constipation 12/26/18 20:00 01/25/19 19:59 01/07/19 13:30 Nitroglycerin (Ntg) 0.4 mg Q5M PRN SL Prn Chest Pain 12/26/18 19:30 01/25/19 19:29 01/01/19 15:18 Ondansetron HCl (Zofran) 4 mg Q6H PRN IVP Nausea & Vomiting 12/26/18 19:30 01/25/19 19:29 12/29/18 09:04 Pantoprazole (Protonix) 40 mg DAILY ORAL 12/27/18 09:00 01/26/19 08:59 01/09/19 09:10 Paroxetine HCl (Paxil) 30 mg DAILY ORAL 12/27/18 09:00 01/26/19 08:59 01/09/19 09:09 Polyethylene Glycol (Miralax) 17 gm DAILYPRN PRN ORAL Constipation 12/26/18 20:00 01/25/19 19:29 Quetiapine Fumarate (SEROquel) 100 mg THREE TIMES A DAY ORAL 12/27/18 09:00 01/26/19 08:59 01/09/19 12:33 Tamsulosin HCl (Flomax) 0.4 mg BEDTIME ORAL 12/26/18 21:00 01/25/19 20:59 01/08/19 21:06 Trazodone HCl (Desyrel) 100 mg BEDTIME ORAL 12/26/18 21:00 01/25/19 20:59 01/08/19 21:06 Vanesa Skinner MD Jan 09, 2019 13:05
--- NOTE | 2019-01-09 14:08 | Surgery Progress Note ---
Surgery Progress Note Subjective Additional Comments Seen and examined at bedside states he is feeling well and comfortable still pain in the right foot but again confirms he does not want treatment and only wants dressing changes labs noted tolerating diet bowel function Objective Last 24 Hour Vital Signs Date Time Temp Pulse Resp B/P (MAP) Pulse Ox O2 Delivery O2 Flow Rate FiO2 01/09/19 12:00 97.3 126 20 111/69 (83) 98 01/09/19 09:10 119 118/78 01/09/19 09:09 118/78 01/09/19 09:00 Room Air Room Air 01/09/19 08:00 98.2 119 17 118/78 (91) 100 01/09/19 04:00 97.7 99 18 125/73 (90) 97 01/09/19 00:00 98.0 105 18 127/71 (89) 99 01/08/19 21:00 Room Air Room Air 01/08/19 20:00 97.9 108 18 123/69 (87) 98 01/08/19 16:00 97.4 90 18 129/68 (88) 96 I&O Intake and Output 01/08/19 01/09/19 18:59 06:59 Intake Total 360 ml 200 ml Balance 360 ml 200 ml Intake Oral 360 ml 200 ml # Voids 9 8 Dressing: saturated Wound: other Cardiovascular: RSR Respiratory: clear Abdomen: soft, flat, non-tender, non-distended Extremities: tenderness, cyanosis, other Laboratory Tests Test 01/09/19 08:50 White Blood Count 8.6 K/UL (4.8-10.8) Red Blood Count 4.53 M/UL (4.70-6.10) L Hemoglobin 12.6 G/DL (14.2-18.0) L Hematocrit 40.3 % (42.0-52.0) L Mean Corpuscular Volume 89 FL (80-99) Mean Corpuscular Hemoglobin 27.7 PG (27.0-31.0) Mean Corpuscular Hemoglobin Concent 31.2 G/DL (32.0-36.0) L Red Cell Distribution Width 14.1 % (11.6-14.8) Platelet Count 267 K/UL (150-450) Mean Platelet Volume 8.3 FL (6.5-10.1) Neutrophils (%) (Auto) 64.4 % (45.0-75.0) Lymphocytes (%) (Auto) 20.3 % (20.0-45.0) Monocytes (%) (Auto) 10.5 % (1.0-10.0) H Eosinophils (%) (Auto) 3.6 % (0.0-3.0) H Basophils (%) (Auto) 1.3 % (0.0-2.0) Sodium Level 138 MMOL/L (136-145) Potassium Level 4.6 MMOL/L (3.5-5.1) Chloride Level 103 MMOL/L (98-107) Carbon Dioxide Level 26 MMOL/L (21-32) Anion Gap 9 mmol/L (5-15) Blood Urea Nitrogen 43 mg/dL (7-18) H Creatinine 1.2 MG/DL (0.55-1.30) Estimat Glomerular Filtration Rate > 60 mL/min (>60) Glucose Level 109 MG/DL (74-106) H Calcium Level 11.3 MG/DL (8.5-10.1) H Plan Problems: (1) Ulcer of left ankle Assessment & Plan: large chronic left ankle ulceration near circumferential on left ankle. full thickness with eschar on some areas and some areas of granulation tissue. no drainage. no fluctuance. tender, periwound okay. pulses diminished. calf okay. foot with decreased cap refill. please see photos Plain films noted venous duplex without dvt and patent. labs noted long discussion about wound and leg with patient. states he has no intention of having debridement, grafting, or amputation at anytime. will now allow wound to be cleaned properly. will only allow for dressing to be changed. -wash left ankle daily with NS. apply xeroform to wound, ABD, and wrap with kerlix -okay to d/c from surgical standpoint -outpatient wound care follow up thank you will follow with recs. Devon Sullivan Jan 09, 2019 14:08
--- NOTE | 2019-01-09 14:27 | General Progress Note ---
Assessment/Plan Problem List: (1) History of CVA (cerebrovascular accident) ICD Codes: Z86.73 - Personal history of transient ischemic attack (TIA), and cerebral infarction without residual deficits SNOMED: 177972069 (2) Cellulitis ICD Codes: L03.90 - Cellulitis, unspecified SNOMED: 182705779 (3) Anemia ICD Codes: D64.9 - Anemia SNOMED: 074450588 (4) Diabetes ICD Codes: E11.9 - Diabetes SNOMED: 54379149 (5) Hypertension ICD Codes: I10 - Hypertension SNOMED: 54270415 (6) Failure to thrive in adult ICD Codes: R62.7 - Adult failure to thrive SNOMED: 810569023 (7) Ulcer of left ankle ICD Codes: L97.329 - Non-pressure chronic ulcer of left ankle with unspecified severity SNOMED: 689205497, 96532839 Qualifiers: Qualified Codes: L97.322 - Non-pressure chronic ulcer of left ankle with fat layer exposed Status: unchanged Assessment/Plan wound care abx pain control cbc bmp am pam veronica Subjective Constitutional: Reports: weakness Allergies: Coded Allergies: THIORIDAZINE (Unverified Allergy, Mild, HIVES, 04/06/15) PENICILLIN (Unverified Allergy, Unknown, 06/15/15) PENICILLINS (Unverified Allergy, Unknown, 11/24/17) All Systems: reviewed and negative except above Subjective sl foot pain Objective Last 24 Hour Vital Signs Date Time Temp Pulse Resp B/P (MAP) Pulse Ox O2 Delivery O2 Flow Rate FiO2 01/09/19 12:00 97.3 126 20 111/69 (83) 98 01/09/19 09:10 119 118/78 01/09/19 09:09 118/78 01/09/19 09:00 Room Air Room Air 01/09/19 08:00 98.2 119 17 118/78 (91) 100 01/09/19 04:00 97.7 99 18 125/73 (90) 97 01/09/19 00:00 98.0 105 18 127/71 (89) 99 01/08/19 21:00 Room Air Room Air 01/08/19 20:00 97.9 108 18 123/69 (87) 98 01/08/19 16:00 97.4 90 18 129/68 (88) 96 Intake and Output 01/08/19 01/09/19 18:59 06:59 Intake Total 360 ml 200 ml Balance 360 ml 200 ml Intake Oral 360 ml 200 ml # Voids 9 8 Laboratory Tests 01/09/19 08:50: White Blood Count 8.6, Red Blood Count 4.53L, Hemoglobin 12.6L, Hematocrit 40.3L , Mean Corpuscular Volume 89, Mean Corpuscular Hemoglobin 27.7, Mean Corpuscular Hemoglobin Concent 31.2L, Red Cell Distribution Width 14.1, Platelet Count 267, Mean Platelet Volume 8.3, Neutrophils (%) (Auto) 64.4, Lymphocytes (%) (Auto) 20.3, Monocytes (%) (Auto) 10.5H, Eosinophils (%) (Auto) 3.6H, Basophils (%) (Auto) 1.3, Sodium Level 138, Potassium Level 4.6, Chloride Level 103, Carbon Dioxide Level 26, Anion Gap 9, Blood Urea Nitrogen 43H, Creatinine 1.2, Estimat Glomerular Filtration Rate > 60, Glucose Level 109H, Calcium Level 11.3H Height (Feet): 5 Height (Inches): 10.00 Weight (Pounds): 134 General Appearance: lethargic EENT: normal ENT inspection Neck: normal alignment Cardiovascular: normal peripheral pulses, normal rate, regular rhythm Respiratory/Chest: chest wall non-tender, lungs clear, normal breath sounds Abdomen: normal bowel sounds, non tender, soft Extremities: normal inspection Edema: no edema noted Arm (L), no edema noted Arm (R), no edema noted Leg (L), no edema noted Leg (R), no edema noted Pedal (L), no edema noted Pedal (R), no edema noted Generalized Neurologic: motor weakness Skin: normal pigmentation, warm/dry Objective foot dressing c&d Jarek Gonzalez DO Jan 09, 2019 14:27
--- NOTE | 2019-01-09 14:55 | NUR ---
NURSE NOTES: Notified Dr. Gonzalez HR 119 and 126. BP at 1200 111 Addendum: 01/09/19 at 1456 by CHRISTIAN RYAN RN BP at 1200 111/69. Verified HR by apical auscultation, [address] Gonzalez
--- NOTE | 2019-01-09 15:28 | Infectious Diseases Prog Note ---
Assessment/Plan Assessment/Plan Assessment: L ankle ulcer- mild gavin wound cellulitis;ulcer itself not infected Wnd : Morg. M , StrpGrpG, cantor S PsA( colonizers ) -Xray ankle: No definite acute bony process. Possible lateral soft tissue irregularity-correlate with clinical findings -Bcx neg Afebrile Mild leukocytosis; SP DM2 HTN COPD SNF resident Plan: -Continue to monitor off abx as he is clinically stable -01/03 SP Doxycycline #7 IV Vancomycin #3 12/28 -s/p IV Vancomycin x1 12/26 -Monitor CBC/CMP, temperatures -wound care Subjective Allergies: Coded Allergies: THIORIDAZINE (Unverified Allergy, Mild, HIVES, 04/06/15) PENICILLIN (Unverified Allergy, Unknown, 06/15/15) PENICILLINS (Unverified Allergy, Unknown, 11/24/17) Subjective afebrile no leukocytosis off abx now Objective Vital Signs Last 24 Hour Vital Signs Date Time Temp Pulse Resp B/P (MAP) Pulse Ox O2 Delivery O2 Flow Rate FiO2 01/09/19 12:00 97.3 126 20 111/69 (83) 98 01/09/19 09:10 119 118/78 01/09/19 09:09 118/78 01/09/19 09:00 Room Air Room Air 01/09/19 08:00 98.2 119 17 118/78 (91) 100 01/09/19 04:00 97.7 99 18 125/73 (90) 97 01/09/19 00:00 98.0 105 18 127/71 (89) 99 01/08/19 21:00 Room Air Room Air 01/08/19 20:00 97.9 108 18 123/69 (87) 98 01/08/19 16:00 97.4 90 18 129/68 (88) 96 Height (Feet): 5 Height (Inches): 10.00 Weight (Pounds): 134 Objective General Appearance: no apparent distress, alert, non-toxic HEENT: normocephalic, atraumatic bilateral eye PERRL, normal pharynx Neck: full range of motion, supple/symm/no masses Respiratory: chest non-tender, lungs clear, normal breath sounds, speaking full sentences Cardiovascular : regular rate, rhythm, no edema Gastrointestinal: normal bowel sounds, non tender, soft, non-distended, no guarding, no rebound Genitourinary: normal inspection, no CVA tenderness Musculoskeletal: back normal, gait/station normal, normal range of motion, non- tender Neurologic: alert, oriented x3, responsive, motor strength/tone normal, sensory intact, speech normal Psychiatric: judgement/insight normal, memory normal, mood/affect normal, no suicidal/homicidal ideation Skin: other - large ulcer to L ankle. surrounding erythema/induration Laboratory Tests Test 01/09/19 08:50 White Blood Count 8.6 K/UL (4.8-10.8) Red Blood Count 4.53 M/UL (4.70-6.10) L Hemoglobin 12.6 G/DL (14.2-18.0) L Hematocrit 40.3 % (42.0-52.0) L Mean Corpuscular Volume 89 FL (80-99) Mean Corpuscular Hemoglobin 27.7 PG (27.0-31.0) Mean Corpuscular Hemoglobin Concent 31.2 G/DL (32.0-36.0) L Red Cell Distribution Width 14.1 % (11.6-14.8) Platelet Count 267 K/UL (150-450) Mean Platelet Volume 8.3 FL (6.5-10.1) Neutrophils (%) (Auto) 64.4 % (45.0-75.0) Lymphocytes (%) (Auto) 20.3 % (20.0-45.0) Monocytes (%) (Auto) 10.5 % (1.0-10.0) H Eosinophils (%) (Auto) 3.6 % (0.0-3.0) H Basophils (%) (Auto) 1.3 % (0.0-2.0) Sodium Level 138 MMOL/L (136-145) Potassium Level 4.6 MMOL/L (3.5-5.1) Chloride Level 103 MMOL/L (98-107) Carbon Dioxide Level 26 MMOL/L (21-32) Anion Gap 9 mmol/L (5-15) Blood Urea Nitrogen 43 mg/dL (7-18) H Creatinine 1.2 MG/DL (0.55-1.30) Estimat Glomerular Filtration Rate > 60 mL/min (>60) Glucose Level 109 MG/DL (74-106) H Calcium Level 11.3 MG/DL (8.5-10.1) H Current Medications Medications (Trade) Dose Ordered Sig/Taco Route PRN Reason Start Time Stop Time Status Last Admin Dose Admin Acetaminophen (Tylenol) 650 mg Q4H PRN ORAL fever 12/26/18 19:30 01/25/19 19:29 Amlodipine Besylate (Norvasc) 10 mg DAILY ORAL 12/27/18 09:00 01/26/19 08:59 01/09/19 09:10 Benazepril HCl (Lotensin) 10 mg DAILY ORAL 12/27/18 09:00 01/26/19 08:59 01/09/19 09:09 Benztropine Mesylate (Cogentin) 1 mg THREE TIMES A DAY ORAL 12/27/18 18:00 01/26/19 17:59 01/09/19 12:33 Clonidine HCl (Catapres Tab) 0.1 mg Q6H PRN ORAL For High Blood Pressure 12/26/18 20:00 01/25/19 19:59 Clopidogrel Bisulfate (Plavix) 75 mg DAILY ORAL 12/27/18 09:00 01/26/19 08:59 01/09/19 09:10 Dextrose (Dextrose 50%) 25 ml Q30M PRN IV Hypoglycemia 12/26/18 19:45 01/25/19 19:33 Dextrose (Dextrose 50%) 50 ml Q30M PRN IV hypoglycemia 12/26/18 19:45 01/25/19 19:44 Divalproex Sodium (Depakote) 250 mg Q12HR ORAL 12/26/18 21:00 01/25/19 20:59 01/09/19 09:10 Gabapentin (Neurontin) 300 mg THREE TIMES A DAY ORAL 12/27/18 09:00 01/26/19 08:59 01/09/19 12:33 Haloperidol (Haldol) 5 mg TID ORAL 12/27/18 18:00 01/26/19 17:59 01/09/19 12:33 Heparin Sodium (Porcine) (Heparin 5000 units/ml) 5,000 units EVERY 12 HOURS SUBQ 12/26/18 21:00 01/25/19 20:59 01/09/19 09:11 Insulin Aspart (NovoLOG) BEFORE MEALS AND HS SUBQ 12/26/18 21:00 01/25/19 20:59 01/09/19 12:34 Magnesium Hydroxide (Mom) 30 ml DAILYPRN PRN ORAL Constipation 12/26/18 20:00 01/25/19 19:59 01/07/19 13:30 Nitroglycerin (Ntg) 0.4 mg Q5M PRN SL Prn Chest Pain 12/26/18 19:30 01/25/19 19:29 01/01/19 15:18 Ondansetron HCl (Zofran) 4 mg Q6H PRN IVP Nausea & Vomiting 12/26/18 19:30 01/25/19 19:29 12/29/18 09:04 Pantoprazole (Protonix) 40 mg DAILY ORAL 12/27/18 09:00 01/26/19 08:59 01/09/19 09:10 Paroxetine HCl (Paxil) 30 mg DAILY ORAL 12/27/18 09:00 01/26/19 08:59 01/09/19 09:09 Polyethylene Glycol (Miralax) 17 gm DAILYPRN PRN ORAL Constipation 12/26/18 20:00 01/25/19 19:29 Quetiapine Fumarate (SEROquel) 100 mg THREE TIMES A DAY ORAL 12/27/18 09:00 01/26/19 08:59 01/09/19 12:33 Tamsulosin HCl (Flomax) 0.4 mg BEDTIME ORAL 12/26/18 21:00 01/25/19 20:59 01/08/19 21:06 Trazodone HCl (Desyrel) 100 mg BEDTIME ORAL 12/26/18 21:00 01/25/19 20:59 01/08/19 21:06 Mireya Campos M.D. Jan 09, 2019 15:28
[2019-01-09 16:00] VITALS: BP 118/73
[2019-01-09] MEDS ORDERED: Metoprolol Tartrate 50mg tab ORAL SCH (19:00)
--- NOTE | 2019-01-09 19:16 | NUR ---
HAND-OFF: Report given to OLGA Arteaga.
[2019-01-09 20:00] VITALS: BP 108/66
--- NOTE | 2019-01-09 20:00 | NUR ---
NURSE NOTES: Patient received in bed, asleep, appears comfortable at this time. Bed is locked in low position. Call light in reach. Will continue to monitor.
[2019-01-09] MEDS: Tamsulosin 0.4mg cap ORAL SCH (20:26)
[2019-01-09] MEDS: TraZODone 100mg tab ORAL SCH (20:26)
--- NOTE | 2019-01-09 22:00 | NUR ---
NURSE NOTES: STAT EKG results reported to Dr. Polo. No new orders at this time. Will follow in AM.
--- NOTE | 2019-01-09 22:12 | Cardiology Progress Note ---
Assessment/Plan Assessment/Plan 1. Most likely noncardiac, chest pain. The patient is currently chest pain free. A 12-lead electrocardiogram did not show any acute ischemic changes. Troponin I level has been negative. Echo with normal LV systolic function and LVEF of 60%, In face of the patient's severe debilitation, I would not consider any invasive cardiac workup, continue aspirin and statins, beta-ni for double product control. 2. History of diabetes mellitus. 3. History of hypertension. 4. Sinus tachycardia likely due to cogentin side effects. Start metoprolol 25mg po bid. Subjective Subjective Tachycardic according to the nurse. Denies chest pain or SOB. Objective Last 24 Hour Vital Signs Date Time Temp Pulse Resp B/P (MAP) Pulse Ox O2 Delivery O2 Flow Rate FiO2 01/09/19 21:00 Room Air Room Air 01/09/19 20:26 122 108/66 01/09/19 20:00 97.5 124 24 108/66 (80) 97 01/09/19 16:00 97.5 97 19 118/73 (88) 99 01/09/19 12:00 97.3 126 20 111/69 (83) 98 01/09/19 09:10 119 118/78 01/09/19 09:09 118/78 01/09/19 09:00 Room Air Room Air 01/09/19 08:00 98.2 119 17 118/78 (91) 100 01/09/19 04:00 97.7 99 18 125/73 (90) 97 01/09/19 00:00 98.0 105 18 127/71 (89) 99 Intake and Output 01/08/19 01/09/19 19:00 07:00 Intake Total 360 ml 200 ml Balance 360 ml 200 ml Intake Oral 360 ml 200 ml # Voids 9 8 2D Echo: LVEF 60%, Grade I LVDD Laboratory Tests Test 01/09/19 08:50 White Blood Count 8.6 K/UL (4.8-10.8) Red Blood Count 4.53 M/UL (4.70-6.10) L Hemoglobin 12.6 G/DL (14.2-18.0) L Hematocrit 40.3 % (42.0-52.0) L Mean Corpuscular Volume 89 FL (80-99) Mean Corpuscular Hemoglobin 27.7 PG (27.0-31.0) Mean Corpuscular Hemoglobin Concent 31.2 G/DL (32.0-36.0) L Red Cell Distribution Width 14.1 % (11.6-14.8) Platelet Count 267 K/UL (150-450) Mean Platelet Volume 8.3 FL (6.5-10.1) Neutrophils (%) (Auto) 64.4 % (45.0-75.0) Lymphocytes (%) (Auto) 20.3 % (20.0-45.0) Monocytes (%) (Auto) 10.5 % (1.0-10.0) H Eosinophils (%) (Auto) 3.6 % (0.0-3.0) H Basophils (%) (Auto) 1.3 % (0.0-2.0) Sodium Level 138 MMOL/L (136-145) Potassium Level 4.6 MMOL/L (3.5-5.1) Chloride Level 103 MMOL/L (98-107) Carbon Dioxide Level 26 MMOL/L (21-32) Anion Gap 9 mmol/L (5-15) Blood Urea Nitrogen 43 mg/dL (7-18) H Creatinine 1.2 MG/DL (0.55-1.30) Estimat Glomerular Filtration Rate > 60 mL/min (>60) Glucose Level 109 MG/DL (74-106) H Calcium Level 11.3 MG/DL (8.5-10.1) H Objective HEENT: Atraumatic and normocephalic. Anicteric. Pupils are equal, round, and reactive to light and accommodation. Extraocular muscles intact. NECK: JVP is less than 5 cm. No carotid bruits. Carotid upstrokes 2+ bilaterally. CARDIOVASCULAR: Normal S1, S2. Regular rate and rhythm. Tachycardic. No murmurs, gallops, or rubs. PMI is at fourth intercostal space in the midclavicular line. LUNGS: Clear to auscultation bilaterally. ABDOMEN: Soft, nontender, and nondistended. No hepatosplenomegaly. Positive bowel sounds. EXTREMITIES: Left leg ulceration. Left heel and foot with dressing, edema surrounding the ulcerations. Jimenez Polo MD Jan 09, 2019 22:12
[2019-01-10] VITALS: BP 100/56
[2019-01-10 04:00] VITALS: BP 100/58
[2019-01-10] MEDS: NovoLOG Insulin Flexpen SUBQ SCH ×4 (05:34→21:00)
--- NOTE | 2019-01-10 05:34 | NUR ---
NURSE NOTES: Noted patient had not had bowel movement for several days, offered MOM. Patient refused. Educated patient risks and benefits, patient still refused. Addendum: 01/10/19 at 0535 by ANN MONTALVO RN RN Patient denied abdominal discomfort. Abdomen is soft and nontender, bowel sounds present.
[2019-01-10 07:00] LABS: BASOPHILS % (AUTO) 1.3 % (0.0-2.0); EOSINOPHILS % (AUTO) 2.8 % (0.0-3.0); HEMATOCRIT 37.5 % (42.0-52.0); HEMOGLOBIN 11.8 G/DL (14.2-18.0); MEAN CORPUSCULAR VOLUME 90 FL (80-99); MONOCYTES % (AUTO) 12.1 % (1.0-10.0); NEUTROPHILS % (AUTO) 62.8 % (45.0-75.0); PLATELET COUNT 301 K/UL (150-450); RED BLOOD COUNT 4.18 M/UL (4.70-6.10); RED CELL DISTRIBUTION WIDTH 14.4 % (11.6-14.8); WHITE BLOOD COUNT 10.3 K/UL (4.8-10.8)
[2019-01-10 07:11] LABS: ANION GAP 9 mmol/L (5-15); BLOOD UREA NITROGEN 56 mg/dL (7-18); CALCIUM 11.7 MG/DL (8.5-10.1); CARBON DIOXIDE 28 MMOL/L (21-32); CHLORIDE 104 MMOL/L (98-107); CREATININE 1.7 MG/DL (0.55-1.30); SODIUM 141 MMOL/L (136-145)
--- NOTE | 2019-01-10 07:15 | NUR ---
NURSE NOTES: Received call from Pham nevarez, regarding critical lab K+ of 6.0. Report given to Beena ESPINOZA. Per Beena, she will contact MD regarding K level.
--- NOTE | 2019-01-10 07:15 | NUR ---
HAND-OFF: Report given to Beena ESPINOZA.
[2019-01-10 08:00] VITALS: BP 98/60
[2019-01-10] MEDS: PARoxetine 10mg tab ORAL SCH (08:25)
[2019-01-10] MEDS: Benztropine 1mg tab ORAL SCH ×3 (08:25→17:22)
[2019-01-10] MEDS: Heparin 5000 units/ml inj SUBQ SCH ×2 (08:26→21:34)
[2019-01-10] MEDS: Benazepril 10mg tab ORAL SCH (08:27)
--- NOTE | 2019-01-10 10:30 | NUR ---
NURSE NOTES: pt refused to change dressing. Encouraged x3. still refused and yelled at RN " Get out "
--- NOTE | 2019-01-10 10:51 | NUR ---
NURSE NOTES: noted with potassium 6.0. dr. cueto made aware and ordered new consult with dr. munson. will follow up
--- NOTE | 2019-01-10 11:04 | Infectious Diseases Prog Note ---
Assessment/Plan Assessment/Plan Assessment: L ankle ulcer- mild gavin wound cellulitis;ulcer itself not infected Wnd : Morg. M , StrpGrpG, cantor S PsA( colonizers ) -Xray ankle: No definite acute bony process. Possible lateral soft tissue irregularity-correlate with clinical findings -Bcx neg Afebrile Mild leukocytosis; SP DM2 HTN COPD SNF resident Plan: -Continue to monitor off abx as he is clinically stable -01/03 SP Doxycycline #7 IV Vancomycin #3 12/28 -s/p IV Vancomycin x1 12/26 -Monitor CBC/CMP, temperatures -wound care Subjective Allergies: Coded Allergies: THIORIDAZINE (Unverified Allergy, Mild, HIVES, 04/06/15) PENICILLIN (Unverified Allergy, Unknown, 06/15/15) PENICILLINS (Unverified Allergy, Unknown, 11/24/17) Subjective afebrile no leukocytosis off abx Objective Vital Signs Last 24 Hour Vital Signs Date Time Temp Pulse Resp B/P (MAP) Pulse Ox O2 Delivery O2 Flow Rate FiO2 01/10/19 09:32 Room Air Room Air 01/10/19 08:27 98/60 01/10/19 08:26 98 98/60 01/10/19 08:00 98.1 98 20 98/60 (73) 97 01/10/19 04:00 97.8 88 20 100/58 (72) 100 01/10/19 00:00 97.3 85 22 100/56 (71) 97 01/09/19 21:00 Room Air Room Air 01/09/19 20:26 122 108/66 01/09/19 20:00 97.5 124 24 108/66 (80) 97 01/09/19 16:00 97.5 97 19 118/73 (88) 99 01/09/19 12:00 97.3 126 20 111/69 (83) 98 Height (Feet): 5 Height (Inches): 10.00 Weight (Pounds): 134 Objective General Appearance: no apparent distress, alert, non-toxic HEENT: normocephalic, atraumatic bilateral eye PERRL, normal pharynx Neck: full range of motion, supple/symm/no masses Respiratory: chest non-tender, lungs clear, normal breath sounds, speaking full sentences Cardiovascular : regular rate, rhythm, no edema Gastrointestinal: normal bowel sounds, non tender, soft, non-distended, no guarding, no rebound Genitourinary: normal inspection, no CVA tenderness Musculoskeletal: back normal, gait/station normal, normal range of motion, non- tender Neurologic: alert, oriented x3, responsive, motor strength/tone normal, sensory intact, speech normal Psychiatric: judgement/insight normal, memory normal, mood/affect normal, no suicidal/homicidal ideation Skin: other - large ulcer to L ankle. surrounding erythema/induration Laboratory Tests Test 01/10/19 05:50 White Blood Count 10.3 K/UL (4.8-10.8) Red Blood Count 4.18 M/UL (4.70-6.10) L Hemoglobin 11.8 G/DL (14.2-18.0) L Hematocrit 37.5 % (42.0-52.0) L Mean Corpuscular Volume 90 FL (80-99) Mean Corpuscular Hemoglobin 28.2 PG (27.0-31.0) Mean Corpuscular Hemoglobin Concent 31.4 G/DL (32.0-36.0) L Red Cell Distribution Width 14.4 % (11.6-14.8) Platelet Count 301 K/UL (150-450) Mean Platelet Volume 8.7 FL (6.5-10.1) Neutrophils (%) (Auto) 62.8 % (45.0-75.0) Lymphocytes (%) (Auto) 21.0 % (20.0-45.0) Monocytes (%) (Auto) 12.1 % (1.0-10.0) H Eosinophils (%) (Auto) 2.8 % (0.0-3.0) Basophils (%) (Auto) 1.3 % (0.0-2.0) Sodium Level 141 MMOL/L (136-145) Potassium Level 6.0 MMOL/L (3.5-5.1) *H Chloride Level 104 MMOL/L (98-107) Carbon Dioxide Level 28 MMOL/L (21-32) Anion Gap 9 mmol/L (5-15) Blood Urea Nitrogen 56 mg/dL (7-18) H Creatinine 1.7 MG/DL (0.55-1.30) H Estimat Glomerular Filtration Rate 49.1 mL/min (>60) Glucose Level 100 MG/DL (74-106) Calcium Level 11.7 MG/DL (8.5-10.1) H Current Medications Medications (Trade) Dose Ordered Sig/Taco Route PRN Reason Start Time Stop Time Status Last Admin Dose Admin Acetaminophen (Tylenol) 650 mg Q4H PRN ORAL fever 12/26/18 19:30 01/25/19 19:29 Amlodipine Besylate (Norvasc) 10 mg DAILY ORAL 12/27/18 09:00 01/26/19 08:59 01/09/19 09:10 Benazepril HCl (Lotensin) 10 mg DAILY ORAL 12/27/18 09:00 01/26/19 08:59 01/09/19 09:09 Benztropine Mesylate (Cogentin) 1 mg THREE TIMES A DAY ORAL 12/27/18 18:00 01/26/19 17:59 01/10/19 08:25 Clonidine HCl (Catapres Tab) 0.1 mg Q6H PRN ORAL For High Blood Pressure 12/26/18 20:00 01/25/19 19:59 Clopidogrel Bisulfate (Plavix) 75 mg DAILY ORAL 12/27/18 09:00 01/26/19 08:59 01/10/19 08:26 Dextrose (Dextrose 50%) 25 ml Q30M PRN IV Hypoglycemia 12/26/18 19:45 01/25/19 19:33 Dextrose (Dextrose 50%) 50 ml Q30M PRN IV hypoglycemia 12/26/18 19:45 01/25/19 19:44 Divalproex Sodium (Depakote) 250 mg Q12HR ORAL 12/26/18 21:00 01/25/19 20:59 01/10/19 08:26 Gabapentin (Neurontin) 300 mg THREE TIMES A DAY ORAL 12/27/18 09:00 01/26/19 08:59 01/10/19 08:25 Haloperidol (Haldol) 5 mg TID ORAL 12/27/18 18:00 01/26/19 17:59 01/10/19 10:16 Heparin Sodium (Porcine) (Heparin 5000 units/ml) 5,000 units EVERY 12 HOURS SUBQ 12/26/18 21:00 01/25/19 20:59 01/10/19 08:26 Insulin Aspart (NovoLOG) BEFORE MEALS AND HS SUBQ 12/26/18 21:00 01/25/19 20:59 01/09/19 12:34 Magnesium Hydroxide (Mom) 30 ml DAILYPRN PRN ORAL Constipation 12/26/18 20:00 01/25/19 19:59 01/07/19 13:30 Metoprolol Tartrate (Lopressor) 25 mg Q12HR ORAL 01/10/19 21:00 02/09/19 20:59 Nitroglycerin (Ntg) 0.4 mg Q5M PRN SL Prn Chest Pain 12/26/18 19:30 01/25/19 19:29 01/01/19 15:18 Ondansetron HCl (Zofran) 4 mg Q6H PRN IVP Nausea & Vomiting 12/26/18 19:30 01/25/19 19:29 12/29/18 09:04 Pantoprazole (Protonix) 40 mg DAILY ORAL 12/27/18 09:00 01/26/19 08:59 01/10/19 08:25 Paroxetine HCl (Paxil) 30 mg DAILY ORAL 12/27/18 09:00 01/26/19 08:59 01/10/19 08:25 Polyethylene Glycol (Miralax) 17 gm DAILYPRN PRN ORAL Constipation 12/26/18 20:00 01/25/19 19:29 Quetiapine Fumarate (SEROquel) 100 mg THREE TIMES A DAY ORAL 12/27/18 09:00 01/26/19 08:59 01/10/19 08:25 Tamsulosin HCl (Flomax) 0.4 mg BEDTIME ORAL 12/26/18 21:00 01/25/19 20:59 01/09/19 20:26 Trazodone HCl (Desyrel) 100 mg BEDTIME ORAL 12/26/18 21:00 01/25/19 20:59 01/09/19 20:26 Mireya Campos M.D. Jan 10, 2019 11:04
[2019-01-10 12:00] VITALS: BP 117/68
--- NOTE | 2019-01-10 12:57 | General Progress Note ---
Assessment/Plan Problem List: (1) History of CVA (cerebrovascular accident) ICD Codes: Z86.73 - Personal history of transient ischemic attack (TIA), and cerebral infarction without residual deficits SNOMED: 440394302 (2) Cellulitis ICD Codes: L03.90 - Cellulitis, unspecified SNOMED: 656690247 (3) Anemia ICD Codes: D64.9 - Anemia SNOMED: 152848185 (4) Diabetes ICD Codes: E11.9 - Diabetes SNOMED: 24738484 (5) Hypertension ICD Codes: I10 - Hypertension SNOMED: 05714505 (6) Failure to thrive in adult ICD Codes: R62.7 - Adult failure to thrive SNOMED: 952286165 (7) Ulcer of left ankle ICD Codes: L97.329 - Non-pressure chronic ulcer of left ankle with unspecified severity SNOMED: 501978581, 87331690 Qualifiers: Qualified Codes: L97.322 - Non-pressure chronic ulcer of left ankle with fat layer exposed Status: stable, progressing Assessment/Plan wound care abx pain control cbc bmp am pam veronica Subjective Constitutional: Reports: weakness Allergies: Coded Allergies: THIORIDAZINE (Unverified Allergy, Mild, HIVES, 04/06/15) PENICILLIN (Unverified Allergy, Unknown, 06/15/15) PENICILLINS (Unverified Allergy, Unknown, 11/24/17) All Systems: reviewed and negative except above Subjective sl foot pain Objective Last 24 Hour Vital Signs Date Time Temp Pulse Resp B/P (MAP) Pulse Ox O2 Delivery O2 Flow Rate FiO2 01/10/19 09:32 Room Air Room Air 01/10/19 08:27 98/60 01/10/19 08:26 98 98/60 01/10/19 08:00 98.1 98 20 98/60 (73) 97 01/10/19 04:00 97.8 88 20 100/58 (72) 100 01/10/19 00:00 97.3 85 22 100/56 (71) 97 01/09/19 21:00 Room Air Room Air 01/09/19 20:26 122 108/66 01/09/19 20:00 97.5 124 24 108/66 (80) 97 01/09/19 16:00 97.5 97 19 118/73 (88) 99 Intake and Output 01/09/19 01/10/19 19:00 07:00 Intake Total 840 ml Balance 840 ml Intake Oral 840 ml # Voids 6 1 Laboratory Tests 01/10/19 05:50: White Blood Count 10.3, Red Blood Count 4.18L, Hemoglobin 11.8L, Hematocrit 37.5L, Mean Corpuscular Volume 90, Mean Corpuscular Hemoglobin 28.2, Mean Corpuscular Hemoglobin Concent 31.4L, Red Cell Distribution Width 14.4, Platelet Count 301, Mean Platelet Volume 8.7, Neutrophils (%) (Auto) 62.8, Lymphocytes (%) (Auto) 21.0, Monocytes (%) (Auto) 12.1H, Eosinophils (%) (Auto) 2.8, Basophils (%) (Auto) 1.3, Sodium Level 141, Potassium Level 6.0*H, Chloride Level 104, Carbon Dioxide Level 28, Anion Gap 9, Blood Urea Nitrogen 56H, Creatinine 1.7H, Estimat Glomerular Filtration Rate 49.1, Glucose Level 100 , Calcium Level 11.7H Height (Feet): 5 Height (Inches): 10.00 Weight (Pounds): 134 General Appearance: lethargic EENT: normal ENT inspection Neck: normal alignment Cardiovascular: normal peripheral pulses, normal rate, regular rhythm Respiratory/Chest: chest wall non-tender, lungs clear, normal breath sounds Abdomen: normal bowel sounds, non tender, soft Extremities: normal inspection Edema: no edema noted Arm (L), no edema noted Arm (R), no edema noted Leg (L), no edema noted Leg (R), no edema noted Pedal (L), no edema noted Pedal (R), no edema noted Generalized Neurologic: motor weakness Skin: normal pigmentation, warm/dry Objective foot dressing c&d Jarek Gonzalez DO Jan 10, 2019 12:57
--- NOTE | 2019-01-10 13:05 | Pulmonology Progress Note ---
Assessment/Plan Problems: (1) Cellulitis (2) Severe anemia (3) Hypertension (4) UTI (urinary tract infection) (5) Schizoaffective disorder (6) Diabetes (7) History of CVA (cerebrovascular accident) Assessment/Plan all reviewed doing better, no new complains in better spirit wound care check cultures symptomatic treatment respiratory treatment dvt prophylaxis. dc planning in progress Subjective ROS Limited/Unobtainable: No Constitutional: Reports: no symptoms Respiratory: Reports: no symptoms Allergies: Coded Allergies: THIORIDAZINE (Unverified Allergy, Mild, HIVES, 04/06/15) PENICILLIN (Unverified Allergy, Unknown, 06/15/15) PENICILLINS (Unverified Allergy, Unknown, 11/24/17) Objective Last 24 Hour Vital Signs Date Time Temp Pulse Resp B/P (MAP) Pulse Ox O2 Delivery O2 Flow Rate FiO2 01/10/19 09:32 Room Air Room Air 01/10/19 08:27 98/60 01/10/19 08:26 98 98/60 01/10/19 08:00 98.1 98 20 98/60 (73) 97 01/10/19 04:00 97.8 88 20 100/58 (72) 100 01/10/19 00:00 97.3 85 22 100/56 (71) 97 01/09/19 21:00 Room Air Room Air 01/09/19 20:26 122 108/66 01/09/19 20:00 97.5 124 24 108/66 (80) 97 01/09/19 16:00 97.5 97 19 118/73 (88) 99 Intake and Output 01/09/19 01/10/19 19:00 07:00 Intake Total 840 ml Balance 840 ml Intake Oral 840 ml # Voids 6 1 Objective General Appearance: WD/WN Lines, tubes and drains: peripheral HEENT: normocephalic, atraumatic Neck: non-tender, supple Respiratory/Chest: chest wall non-tender, lungs clear Breasts: no masses Cardiovascular/Chest: normal rate, no JVD Abdomen: normal bowel sounds Genitourinary/Rectal: normal genital exam, heme negative stool Extremities: normal range of motion, non-tender Skin Exam: normal pigmentation Neurologic: board saw runner II-XII 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 Laboratory Tests 01/10/19 05:50: White Blood Count 10.3, Red Blood Count 4.18L, Hemoglobin 11.8L, Hematocrit 37.5L, Mean Corpuscular Volume 90, Mean Corpuscular Hemoglobin 28.2, Mean Corpuscular Hemoglobin Concent 31.4L, Red Cell Distribution Width 14.4, Platelet Count 301, Mean Platelet Volume 8.7, Neutrophils (%) (Auto) 62.8, Lymphocytes (%) (Auto) 21.0, Monocytes (%) (Auto) 12.1H, Eosinophils (%) (Auto) 2.8, Basophils (%) (Auto) 1.3, Sodium Level 141, Potassium Level 6.0*H, Chloride Level 104, Carbon Dioxide Level 28, Anion Gap 9, Blood Urea Nitrogen 56H, Creatinine 1.7H, Estimat Glomerular Filtration Rate 49.1, Glucose Level 100 , Calcium Level 11.7H Current Medications Medications (Trade) Dose Ordered Sig/Taco Route PRN Reason Start Time Stop Time Status Last Admin Dose Admin Acetaminophen (Tylenol) 650 mg Q4H PRN ORAL fever 12/26/18 19:30 01/25/19 19:29 Amlodipine Besylate (Norvasc) 10 mg DAILY ORAL 12/27/18 09:00 01/26/19 08:59 01/09/19 09:10 Benazepril HCl (Lotensin) 10 mg DAILY ORAL 12/27/18 09:00 01/26/19 08:59 01/09/19 09:09 Benztropine Mesylate (Cogentin) 1 mg THREE TIMES A DAY ORAL 12/27/18 18:00 01/26/19 17:59 01/10/19 12:14 Clonidine HCl (Catapres Tab) 0.1 mg Q6H PRN ORAL For High Blood Pressure 12/26/18 20:00 01/25/19 19:59 Clopidogrel Bisulfate (Plavix) 75 mg DAILY ORAL 12/27/18 09:00 01/26/19 08:59 01/10/19 08:26 Dextrose (Dextrose 50%) 25 ml Q30M PRN IV Hypoglycemia 12/26/18 19:45 01/25/19 19:33 Dextrose (Dextrose 50%) 50 ml Q30M PRN IV hypoglycemia 12/26/18 19:45 01/25/19 19:44 Divalproex Sodium (Depakote) 250 mg Q12HR ORAL 12/26/18 21:00 01/25/19 20:59 01/10/19 08:26 Gabapentin (Neurontin) 300 mg THREE TIMES A DAY ORAL 12/27/18 09:00 01/26/19 08:59 01/10/19 12:14 Haloperidol (Haldol) 5 mg TID ORAL 12/27/18 18:00 01/26/19 17:59 01/10/19 12:16 Heparin Sodium (Porcine) (Heparin 5000 units/ml) 5,000 units EVERY 12 HOURS SUBQ 12/26/18 21:00 01/25/19 20:59 01/10/19 08:26 Insulin Aspart (NovoLOG) BEFORE MEALS AND HS SUBQ 12/26/18 21:00 01/25/19 20:59 01/10/19 11:56 Magnesium Hydroxide (Mom) 30 ml DAILYPRN PRN ORAL Constipation 12/26/18 20:00 01/25/19 19:59 01/07/19 13:30 Metoprolol Tartrate (Lopressor) 25 mg Q12HR ORAL 01/10/19 21:00 02/09/19 20:59 Nitroglycerin (Ntg) 0.4 mg Q5M PRN SL Prn Chest Pain 12/26/18 19:30 01/25/19 19:29 01/01/19 15:18 Ondansetron HCl (Zofran) 4 mg Q6H PRN IVP Nausea & Vomiting 12/26/18 19:30 01/25/19 19:29 12/29/18 09:04 Pantoprazole (Protonix) 40 mg DAILY ORAL 12/27/18 09:00 01/26/19 08:59 01/10/19 08:25 Paroxetine HCl (Paxil) 30 mg DAILY ORAL 12/27/18 09:00 01/26/19 08:59 01/10/19 08:25 Polyethylene Glycol (Miralax) 17 gm DAILYPRN PRN ORAL Constipation 12/26/18 20:00 01/25/19 19:29 Quetiapine Fumarate (SEROquel) 100 mg THREE TIMES A DAY ORAL 12/27/18 09:00 01/26/19 08:59 01/10/19 12:15 Tamsulosin HCl (Flomax) 0.4 mg BEDTIME ORAL 12/26/18 21:00 01/25/19 20:59 01/09/19 20:26 Trazodone HCl (Desyrel) 100 mg BEDTIME ORAL 12/26/18 21:00 01/25/19 20:59 01/09/19 20:26 Vanesa Skinner MD Jan 10, 2019 13:05
--- NOTE | 2019-01-10 13:13 | Progress Note ---
DATE: 01/09/2019 SUBJECTIVE: The patient is a 68-year-old male with left ankle ulcer and cellulitis. He also has overlying diagnosis of schizoaffective, bipolar type. He has a lot of mood lability, confusion, and disorganized thought processes, decline in cognition below his baseline that is why his attending has requested daily psychiatric consultation for this patient. MENTAL STATUS EXAMINATION: The patient is a 68-year-old male. Appearance is disheveled. Attitude, irritable and agitated. Affect, guarded and restricted. Intellect poor. Mood depressed and anxious. Motor activity, psychomotor agitation. Attention span is poor. Orientation x2. Speech is pressured. Thought process, disorganized and illogical. Insight and judgment is poor. DIAGNOSIS: Schizoaffective, bipolar type. PLAN: Continue him on Depakote 250 mg three times a day and also treat him with a medication regimen of Haldol 5 mg two times a day, , Seroquel at a dose of 100 mg three times a day, Paxil 30 mg p.o. daily, Neurontin 300 mg three times a day as well. Provided him with 20 minutes of cognitive behavioral therapy to help him identify his automatic negative thoughts and help him convert those negative thoughts to more positive thoughts to reduce depression, anxiety, and suicidality. Chart is reviewed. Discussed with staff. Seen and assessed in his room. A 20 minutes of reality-based supportive psychotherapy provided. Uziel Collado M.D. DR: Sandra JOB#: [id number] CC:
--- NOTE | 2019-01-10 13:40 | General Progress Note ---
Progress Note Progress Note patient seen and examined full consult dictated Ximena Lee MD Jan 10, 2019 13:40
--- NOTE | 2019-01-10 13:57 | Surgery Progress Note ---
Surgery Progress Note Subjective Additional Comments comfortable. no complaints. pending placement. no n/v/f/c. tolerating diet. Objective Last 24 Hour Vital Signs Date Time Temp Pulse Resp B/P (MAP) Pulse Ox O2 Delivery O2 Flow Rate FiO2 01/10/19 12:00 97.1 67 20 117/68 (84) 100 01/10/19 09:32 Room Air Room Air 01/10/19 08:27 98/60 01/10/19 08:26 98 98/60 01/10/19 08:00 98.1 98 20 98/60 (73) 97 01/10/19 04:00 97.8 88 20 100/58 (72) 100 01/10/19 00:00 97.3 85 22 100/56 (71) 97 01/09/19 21:00 Room Air Room Air 01/09/19 20:26 122 108/66 01/09/19 20:00 97.5 124 24 108/66 (80) 97 01/09/19 16:00 97.5 97 19 118/73 (88) 99 I&O Intake and Output 01/09/19 01/10/19 19:00 07:00 Intake Total 840 ml Balance 840 ml Intake Oral 840 ml # Voids 6 1 Dressing: saturated Wound: other Cardiovascular: RSR Respiratory: clear Abdomen: soft, flat, non-tender, present bowel sounds Extremities: tenderness, cyanosis Laboratory Tests Test 01/10/19 05:50 White Blood Count 10.3 K/UL (4.8-10.8) Red Blood Count 4.18 M/UL (4.70-6.10) L Hemoglobin 11.8 G/DL (14.2-18.0) L Hematocrit 37.5 % (42.0-52.0) L Mean Corpuscular Volume 90 FL (80-99) Mean Corpuscular Hemoglobin 28.2 PG (27.0-31.0) Mean Corpuscular Hemoglobin Concent 31.4 G/DL (32.0-36.0) L Red Cell Distribution Width 14.4 % (11.6-14.8) Platelet Count 301 K/UL (150-450) Mean Platelet Volume 8.7 FL (6.5-10.1) Neutrophils (%) (Auto) 62.8 % (45.0-75.0) Lymphocytes (%) (Auto) 21.0 % (20.0-45.0) Monocytes (%) (Auto) 12.1 % (1.0-10.0) H Eosinophils (%) (Auto) 2.8 % (0.0-3.0) Basophils (%) (Auto) 1.3 % (0.0-2.0) Sodium Level 141 MMOL/L (136-145) Potassium Level 6.0 MMOL/L (3.5-5.1) *H Chloride Level 104 MMOL/L (98-107) Carbon Dioxide Level 28 MMOL/L (21-32) Anion Gap 9 mmol/L (5-15) Blood Urea Nitrogen 56 mg/dL (7-18) H Creatinine 1.7 MG/DL (0.55-1.30) H Estimat Glomerular Filtration Rate 49.1 mL/min (>60) Glucose Level 100 MG/DL (74-106) Calcium Level 11.7 MG/DL (8.5-10.1) H Plan Problems: (1) Ulcer of left ankle Assessment & Plan: large chronic left ankle ulceration near circumferential on left ankle. full thickness with eschar on some areas and some areas of granulation tissue. no drainage. no fluctuance. tender, periwound okay. pulses diminished. calf okay. foot with decreased cap refill. please see photos Plain films noted venous duplex without dvt and patent. labs noted long discussion about wound and leg with patient. states he has no intention of having debridement, grafting, or amputation at anytime. will now allow wound to be cleaned properly. will only allow for dressing to be changed. -wash left ankle daily with NS. apply xeroform to wound, ABD, and wrap with kerlix -okay to d/c from surgical standpoint -outpatient wound care follow up thank you will follow with recs. Devon Sullivan Jan 10, 2019 13:57
--- NOTE | 2019-01-10 14:37 | NUR ---
ELECTRICAL/INSTRUMENT TECHNICIANCOMMUNITY RECREATION COORDINATOR SI:LEFT ANKLE ULCER . CELLULITIS VS:BP 98/60, P 98, T 97.1, RR 20, SpO2 100 RBC 4.18, Hgb 11.8, Hct 37.5, K 6.0, BUN 56, CR 1.7 Ca 11.7 IS:HALDOL 5mg COGENTIN 1mg PLAVIX 75mg GABAPENTIN 300mg PROTONIX 40mg PAXIL 30mgSEROQUEL 100mg DEPAKOTE 250mg NOVOLOG SUBQ MED/SURG STATUS
--- NOTE | 2019-01-10 15:53 | NUR ---
NURSE NOTES: informed Dr. Lee of bladder scan result and received NNO. will continue to monitor
[2019-01-10 16:00] VITALS: BP 100/59
--- NOTE | 2019-01-10 18:45 | Progress Note ---
DATE: 01/10/2019 SUBJECTIVE: This is a 68-year-old male with left ankle ulcer and cellulitis. Still very mood labile, confused, disorganized. MENTAL STATUS EXAMINATION: This is a 68-year-old male. Appearance is disheveled. Attitude, irritable and agitated. Affect, guarded and restricted. Intellect poor. Mood depressed and anxious. Motor activity, psychomotor agitation. Attention span is poor. Orientation x2. Speech is pressured. Thought process, disorganized and illogical. Insight and judgment is poor. DIAGNOSIS: Schizoaffective, bipolar type. PLAN: Haldol 5 two times a day, Seroquel 100 three times a day, Paxil 30 mg daily, Neurontin 300 mg 3 times a day, and then Depakote 250 mg twice a day. Provide him with 20 minutes of cognitive behavioral therapy to help him identify his automatic negative thoughts to help him convert those negative thoughts to more positive thoughts to reduce depression, anxiety, suicidality, and mood lability. 20 minutes of cognitive behavioral therapy provided for the patient. Chart reviewed. Discussed with staff. Seen and assessed in his room. Uziel Collado M.D. DR: GIOVANNA JOB#: [id number] CC:
--- NOTE | 2019-01-10 19:23 | NUR ---
HAND-OFF: Report given to BETINA Guardado.
--- NOTE | 2019-01-10 19:30 | NUR ---
NURSE NOTES: RECEIVED PATIENT LYING IN BED, AWAKE, ALERT/ORIENTED TO PERSON, REALITY ORIENTATION PROVIDED DURING ASSESSMENT. DENIES PAIN. TOLERATING IV FLUIDS, NO REDNESS/SWELLING NOTED. NO SIGNS AND SYMPTOMS OF ACUTE CARDIO RESPIRATORY DISTRESS/SHORTNESS OF BREATH, NO PERIPHERAL EDEMA NOTED. NOTED WITH VERY DRY SKIN. DRESSING INTACT TO LEFT HIP/LEFT FOOT. NO COMPLAINTS OF GI DISCOMFORT, NO NAUSEA/VOMITING NOTED. ASSISTED WITH PM CARE. SIDE RAILS UP X3/BED IN LOWEST POSITION FOR SAFETY. CALL LIGHT WITHIN REACH. NAD.
[2019-01-10 20:00] VITALS: BP 110/58
--- NOTE | 2019-01-10 20:50 | Cardiology Report ---
APPROVED REPORT EXAM: Two-dimensional and M-mode echocardiogram with Doppler and color Doppler. INDICATION Tachycardia M-Mode DIMENSIONS IVSd1.0 (0.7-1.1cm)Left Atrium (MM)2.5 (1.6-4.0cm) LVDd4.0 (3.5-5.6cm)Aortic Root3.0 (2.0-3.7cm) PWd1.1 (0.7-1.1cm)Aortic Cusp Exc.1.7 (1.5-2.0cm) LVDs2.6 (2.5-4.0cm) PWs1.3 cm Normal left ventricular chamber size, systolic function and wall motion to extent visualized. Left ventricular ejection fraction grossly estimated to be 60 %. Study quality precludes accurate assessment of regional wall motion. No evidence of left ventricular hypertrophy. No evidence of pericardial effusion. All other cardiac chamber sizes are within normal limits. Focal aortic valve sclerosis with adequate cusp excursion. Thickened mitral valve leaflets with normal excursion. Mitral annulus and aortic root calcification. Normal pulmonic valve structure. Normal tricuspid valve structure. Subcostal views not obtained A color flow and spectral Doppler study was performed and revealed: Trace mitral regurgitation. Mitral diastolic velocities suggest reduced left ventricular relaxation c/w mild LV diastolic dysfunction (Grade I ). Trace tricuspid regurgitation.
[2019-01-10] MEDS: TraZODone 100mg tab ORAL SCH (21:25)
[2019-01-10] MEDS: Metoprolol 25mg tab ORAL SCH (21:26)
[2019-01-10] MEDS: Tamsulosin 0.4mg cap ORAL SCH (21:26)
--- NOTE | 2019-01-10 23:15 | Consultation ---
DATE OF CONSULTATION: 01/10/2019 NEPHROLOGY CONSULTATION: CONSULTING PHYSICIAN: Ximena Lee M.D. REFERRING PHYSICIAN: Jarek Gonzalez D.O. REASON FOR CONSULTATION: Hyperkalemia. HISTORY OF PRESENT ILLNESS: The patient is a 68-year-old male with past medical history significant for history of hypertension, history of diabetes, history of COPD, and nonhealing left leg ulceration. He was originally brought to emergency room on 12/19/2018 with complaint of worsening of left lower extremity cellulitis and ulceration. The patient consequently was admitted in the hospital, was started on broad-spectrum antibiotic. Over the course of hospital admission, the patient was found to have a hyperkalemia. I was called for management of renal disease and electrolyte imbalance. PAST MEDICAL HISTORY: Includin. Diabetes. 2. Hypertension. 3. Chronic left lower extremity ulceration. 4. COPD. ALLERGIES: He is allergic to thioridazine and penicillin. SOCIAL HISTORY: Denies any history of current tobacco, alcohol, or drug use. FAMILY HISTORY: Noncontributory. REVIEW OF SYSTEMS: GENERAL: He complained of generalized weakness. No fever. No chills. No night sweats. HEAD AND NECK: Denies any dysphagia, odynophagia, blurry vision, headache, or neck stiffness. PULMONARY: No shortness of breath, cough, or sputum. GASTROINTESTINAL: Denies any nausea or vomiting. Has very poor appetite. GENITOURINARY: Denies any dysuria, frequency, or hematuria. MEDICATIONS: Includin. Tylenol 650 q.6 h. p.r.n. pain. 2. Amlodipine 2 mg daily. 3. Benazepril 10 mg daily. 4. Cogentin 1 mg daily. 5. Catapres 0.1 p.r.n. blood pressure more than 160. 6. Plavix 75 mg daily. 7. Depakote 250 mg q.12 hours. 8. Doxycycline 100 mg daily. 9. Neurontin 300 mg daily. 10. Haloperidol 5 mg p.r.n. 11. [place] 5/325 p.r.n. 12. Paxil 30 mg daily. 13. MiraLAX 17 g p.r.n. constipation. 14. Seroquel 100 mg daily. 15. Flomax 0.4 mg daily. 16. Trazodone 100 mg p.o. at bedtime. PHYSICAL EXAMINATION: GENERAL: The patient is a chronically ill-looking male. VITAL SIGNS: Temperature of 98 degrees, blood pressure 137/76, pulse rate of 82, respiratory rate of 18. HEAD AND NECK: Bitemporal wasting. Dry mucous membranes. Extraocular movements intact. Pupils are reactive to light and accommodation. LUNGS: Clear to auscultation. CARDIAC: Regular rate and rhythm. S1, S2 normal. No murmurs or rubs. ABDOMEN: Soft, nontender, nondistended. EXTREMITIES: Trace edema. Left lower extremity ulceration and dressing. LABORATORY VALUES: The patient's WBC count of 10.2, hemoglobin of 11.8, hematocrit of 37, and platelet count of 301. Sodium 141, potassium 6, chloride 104, bicarb 20, BUN 66, creatinine 1.7, calcium of 11.7. INR normal. There is no UA. ASSESSMENT: 1. Hyperkalemia. Obstructive uropathy possibility. 2. Acute renal failure due to further ATN due to unstable hemodynamics. 3. Hypercalcemia. PLAN: For the patient to obtain UA. Check random urine protein/creatinine ratio to calculate the proteinuria. Check the urine sodium and creatinine to calculate fractional excretion of sodium. Ultrasound of the kidney to evaluate the kidney size. Check urine potassium. Check calcium, phosphorous, PTH for evaluation of hypercalcemia. We will start the patient on IV fluids, probably half NS at 70 mL per hour. Monitoring off closely. At the end, I would like to thank Dr. Jarek Gonzalez for allowing me to participate in the care of this patient. Ximena Lee M.D. DR: JOCELINE JOB#: [id number] CC:
--- NOTE | 2019-01-10 23:58 | Cardiology Progress Note ---
Assessment/Plan Assessment/Plan 1. Most likely noncardiac, chest pain. The patient is currently chest pain free. A 12-lead electrocardiogram did not show any acute ischemic changes. Troponin I level has been negative. Echo with normal LV systolic function and LVEF of 60%, continue aspirin, statins, and beta-blockers. 2. History of diabetes mellitus. 3. History of hypertension. 4. Sinus tachycardia likely due to cogentin side effects. Continue metoprolol. Subjective Subjective Denies chest pain or SOB. Objective Last 24 Hour Vital Signs Date Time Temp Pulse Resp B/P (MAP) Pulse Ox O2 Delivery O2 Flow Rate FiO2 01/10/19 21:26 113 112/69 01/10/19 21:04 Room Air Room Air 01/10/19 20:00 97.9 115 18 110/58 (75) 97 01/10/19 16:00 97.2 102 20 100/59 (73) 98 01/10/19 12:00 97.1 67 20 117/68 (84) 100 01/10/19 09:32 Room Air Room Air 01/10/19 08:27 98/60 01/10/19 08:26 98 98/60 01/10/19 08:00 98.1 98 20 98/60 (73) 97 01/10/19 04:00 97.8 88 20 100/58 (72) 100 01/10/19 00:00 97.3 85 22 100/56 (71) 97 Intake and Output 01/09/19 01/10/19 19:00 07:00 Intake Total 840 ml Balance 840 ml Intake Oral 840 ml # Voids 6 1 2D Echo: LVEF 60%, Grade I LVDD Laboratory Tests Test 01/10/19 05:50 01/10/19 17:42 White Blood Count 10.3 K/UL (4.8-10.8) Red Blood Count 4.18 M/UL (4.70-6.10) L Hemoglobin 11.8 G/DL (14.2-18.0) L Hematocrit 37.5 % (42.0-52.0) L Mean Corpuscular Volume 90 FL (80-99) Mean Corpuscular Hemoglobin 28.2 PG (27.0-31.0) Mean Corpuscular Hemoglobin Concent 31.4 G/DL (32.0-36.0) L Red Cell Distribution Width 14.4 % (11.6-14.8) Platelet Count 301 K/UL (150-450) Mean Platelet Volume 8.7 FL (6.5-10.1) Neutrophils (%) (Auto) 62.8 % (45.0-75.0) Lymphocytes (%) (Auto) 21.0 % (20.0-45.0) Monocytes (%) (Auto) 12.1 % (1.0-10.0) H Eosinophils (%) (Auto) 2.8 % (0.0-3.0) Basophils (%) (Auto) 1.3 % (0.0-2.0) Sodium Level 141 MMOL/L (136-145) Potassium Level 6.0 MMOL/L (3.5-5.1) *H Chloride Level 104 MMOL/L (98-107) Carbon Dioxide Level 28 MMOL/L (21-32) Anion Gap 9 mmol/L (5-15) Blood Urea Nitrogen 56 mg/dL (7-18) H Creatinine 1.7 MG/DL (0.55-1.30) H Estimat Glomerular Filtration Rate 49.1 mL/min (>60) Glucose Level 100 MG/DL (74-106) Calcium Level 11.7 MG/DL (8.5-10.1) H Calcium (Send out) Pending Vitamin D 25-Hydroxy Pending 25-Hydroxy Vitamin D2 Pending 25-Hydroxy Vitamin D3 Pending Parathyroid Hormone (Intact) Pending Parathyroid Hormone Related Protein Pending Objective HEENT: Atraumatic and normocephalic. Anicteric. Pupils are equal, round, and reactive to light and accommodation. Extraocular muscles intact. NECK: JVP is less than 5 cm. No carotid bruits. Carotid upstrokes 2+ bilaterally. CARDIOVASCULAR: Normal S1, S2. Regular rate and rhythm. Tachycardic. No murmurs, gallops, or rubs. PMI is at fourth intercostal space in the midclavicular line. LUNGS: Clear to auscultation bilaterally. ABDOMEN: Soft, nontender, and nondistended. No hepatosplenomegaly. Positive bowel sounds. EXTREMITIES: Left leg ulceration. Left heel and foot with dressing, edema surrounding the ulcerations. Jimenez Polo MD Jan 10, 2019 23:58
[2019-01-11] VITALS: BP 99/61
[2019-01-11 04:00] VITALS: BP 128/87
[2019-01-11] MEDS: NovoLOG Insulin Flexpen SUBQ SCH ×4 (06:22→20:35)
--- NOTE | 2019-01-11 06:37 | NUR ---
NURSE NOTES: UNABLE TO COLLECT URINE, PATIENT DOES NOT ALLOW URINAL TO REMAIN IN PLACE; WHEN ASKED IF I CAN PLACE TEMPORARY CATHETER, PATIENT STATED '"HELL NO".
[2019-01-11 07:21] LABS: BASOPHILS % (AUTO) 1.3 % (0.0-2.0); HEMOGLOBIN 11.8 G/DL (14.2-18.0); LYMPHOCYTES % (AUTO) 19.2 % (20.0-45.0); MEAN CORPUSCULAR VOLUME 89 FL (80-99); NEUTROPHILS % (AUTO) 66.5 % (45.0-75.0); PLATELET COUNT 312 K/UL (150-450); RED BLOOD COUNT 4.15 M/UL (4.70-6.10); RED CELL DISTRIBUTION WIDTH 14.1 % (11.6-14.8); WHITE BLOOD COUNT 11.2 K/UL (4.8-10.8)
[2019-01-11 07:28] LABS: ANION GAP 6 mmol/L (5-15); BLOOD UREA NITROGEN 66 mg/dL (7-18); CALCIUM 11.4 MG/DL (8.5-10.1); CARBON DIOXIDE 26 MMOL/L (21-32); CHLORIDE 105 MMOL/L (98-107); CREATININE 1.6 MG/DL (0.55-1.30); POTASSIUM 5.6 MMOL/L (3.5-5.1); SODIUM 137 MMOL/L (136-145)
--- NOTE | 2019-01-11 07:45 | NUR ---
NURSE NOTES: Patient received A/A/Ox1, confused. screams and guarded. Breathing unlabored on room air. No signs of respiratory distress or pain observed. IV access was pulled out, found in bed. explained to patient IV reinsertion will be enforced and he refused. Bed locked in low position, call light placed within reach. Will continue to monitor.
[2019-01-11 08:00] VITALS: BP 138/72
[2019-01-11] MEDS: PARoxetine 10mg tab ORAL SCH (09:08)
[2019-01-11] MEDS: Benztropine 1mg tab ORAL SCH ×3 (09:08→17:21)
[2019-01-11] MEDS: Metoprolol 25mg tab ORAL SCH ×2 (09:08→20:23)
[2019-01-11] MEDS: Heparin 5000 units/ml inj SUBQ SCH ×2 (09:14→20:33)
--- NOTE | 2019-01-11 11:30 | NUR ---
NURSE NOTES: patient appeared impulsive. remained refused for Iv reinsertion. Made Dr Gonzalez aware. will cont the plan of care.
--- NOTE | 2019-01-11 11:52 | NUR ---
RD ASSESSMENT & RECOMMENDATIONS SEE CARE ACTIVITY FOR COMPLETE ASSESSMENT DAILY ESTIMATED NEEDS: Needs based on wounds, DM 70.5kg 25-35 kcals/kg 1666-3578 total kcals 1.25-1.5 g protein/kg 88-106 g total protein 25-30 mL/kg 4595-9346 total fluid mLs NUTRITION DIAGNOSIS: 1) Increased protein needs r/t wound healing as evidenced by pt with L-ankle full thickness ulcer 2) Altered nutrition related lab values r/t renal dysfunction pending workup as evidenced by elev K (6.0-> 5.6), elev BUN (66, trending up), elev Creat (1.6). CURRENT DIET: CCHO MED PO DIET RECOMMENDATIONS: RENAL DIET + DOUBLE PROTIONS + NEPRO 1 TETRA ABRAM DAILY ADDITIONAL RECOMMENDATIONS: 1) calibrated bed scale wts (Per SNF: 155#) 2) WOUND CARE: add YUNI BID + VIT C 500mg BID + MVI x1 3) Monitor po intake -> pt on multiple psych meds, may alter appetite -> Varibale intake, rec Glucerna daily 4) Add HS snack to prevent hypoglycemia in the AM. 5) REC DIET CHANGE TO RENAL / SOFT EASY CHEW + NEPRO
[2019-01-11 12:00] VITALS: BP 135/68
--- NOTE | 2019-01-11 13:03 | General Progress Note ---
Assessment/Plan Problem List: (1) History of CVA (cerebrovascular accident) ICD Codes: Z86.73 - Personal history of transient ischemic attack (TIA), and cerebral infarction without residual deficits SNOMED: 623559128 (2) Cellulitis ICD Codes: L03.90 - Cellulitis, unspecified SNOMED: 763683137 (3) Anemia ICD Codes: D64.9 - Anemia SNOMED: 135273527 (4) Diabetes ICD Codes: E11.9 - Diabetes SNOMED: 57397135 (5) Hypertension ICD Codes: I10 - Hypertension SNOMED: 68986672 (6) Failure to thrive in adult ICD Codes: R62.7 - Adult failure to thrive SNOMED: 175900881 (7) Ulcer of left ankle ICD Codes: L97.329 - Non-pressure chronic ulcer of left ankle with unspecified severity SNOMED: 204826046, 40828239 Qualifiers: Qualified Codes: L97.322 - Non-pressure chronic ulcer of left ankle with fat layer exposed Status: stable, progressing Assessment/Plan wound care abx pain control cbc bmp am pam veronica Subjective Constitutional: Reports: weakness Allergies: Coded Allergies: THIORIDAZINE (Unverified Allergy, Mild, HIVES, 04/06/15) PENICILLIN (Unverified Allergy, Unknown, 06/15/15) PENICILLINS (Unverified Allergy, Unknown, 11/24/17) All Systems: reviewed and negative except above Subjective sl foot pain Objective Last 24 Hour Vital Signs Date Time Temp Pulse Resp B/P (MAP) Pulse Ox O2 Delivery O2 Flow Rate FiO2 01/11/19 12:00 98.2 85 18 135/68 (90) 95 01/11/19 09:09 82 138/72 01/11/19 09:08 82 138/72 01/11/19 09:00 Room Air Room Air 01/11/19 08:00 97.8 82 18 138/72 (94) 95 01/11/19 04:00 97.9 97 18 128/87 (101) 95 01/11/19 00:00 98.9 109 18 99/61 (74) 97 01/10/19 21:26 113 112/69 01/10/19 21:04 Room Air Room Air 01/10/19 20:00 97.9 115 18 110/58 (75) 97 01/10/19 16:00 97.2 102 20 100/59 (73) 98 Intake and Output 01/10/19 01/11/19 19:00 07:00 Intake Total 390 ml 1455 ml Output Total 820 ml 600 ml Balance -430 ml 855 ml Intake Oral 390 ml 630 ml IV Total 825 ml Output Urine Total 600 ml 600 ml Post Void Residual 220 ml Bladder Scan Volume Amount 201-300 ml # Voids 3 Laboratory Tests 01/10/19 17:42: Calcium (Send out) [Pending], Vitamin D 25-Hydroxy [Pending], 25-Hydroxy Vitamin D2 [Pending], 25-Hydroxy Vitamin D3 [Pending], Parathyroid Hormone ( Intact) [Pending], Parathyroid Hormone Related Protein [Pending] 01/11/19 05:50: White Blood Count 11.2H, Red Blood Count 4.15L, Hemoglobin 11.8L, Hematocrit 37.0L, Mean Corpuscular Volume 89, Mean Corpuscular Hemoglobin 28.5, Mean Corpuscular Hemoglobin Concent 31.9L, Red Cell Distribution Width 14.1, Platelet Count 312, Mean Platelet Volume 8.4, Neutrophils (%) (Auto) 66.5, Lymphocytes (%) (Auto) 19.2L, Monocytes (%) (Auto) 11.0H, Eosinophils (%) (Auto ) 2.0, Basophils (%) (Auto) 1.3, Sodium Level 137, Potassium Level 5.6H, Chloride Level 105, Carbon Dioxide Level 26, Anion Gap 6, Blood Urea Nitrogen 66H, Creatinine 1.6H, Estimat Glomerular Filtration Rate 52.7, Glucose Level 107H, Calcium Level 11.4H Height (Feet): 5 Height (Inches): 10.00 Weight (Pounds): 134 General Appearance: lethargic EENT: normal ENT inspection Neck: normal alignment Cardiovascular: normal peripheral pulses, normal rate, regular rhythm Respiratory/Chest: chest wall non-tender, lungs clear, normal breath sounds Abdomen: normal bowel sounds, non tender, soft Extremities: normal inspection Edema: no edema noted Arm (L), no edema noted Arm (R), no edema noted Leg (L), no edema noted Leg (R), no edema noted Pedal (L), no edema noted Pedal (R), no edema noted Generalized Neurologic: responsive, motor weakness Skin: normal pigmentation, warm/dry Objective foot dressing c&d Jarek Gonzalez DO Jan 11, 2019 13:03
--- NOTE | 2019-01-11 13:37 | Surgery Progress Note ---
Surgery Progress Note Subjective Symptoms: pain same, tolerating diet, BM Additional Comments leukocytosis Objective Last 24 Hour Vital Signs Date Time Temp Pulse Resp B/P (MAP) Pulse Ox O2 Delivery O2 Flow Rate FiO2 01/11/19 12:00 98.2 85 18 135/68 (90) 95 01/11/19 09:09 82 138/72 01/11/19 09:08 82 138/72 01/11/19 09:00 Room Air Room Air 01/11/19 08:00 97.8 82 18 138/72 (94) 95 01/11/19 04:00 97.9 97 18 128/87 (101) 95 01/11/19 00:00 98.9 109 18 99/61 (74) 97 01/10/19 21:26 113 112/69 01/10/19 21:04 Room Air Room Air 01/10/19 20:00 97.9 115 18 110/58 (75) 97 01/10/19 16:00 97.2 102 20 100/59 (73) 98 I&O Intake and Output 01/10/19 01/11/19 19:00 07:00 Intake Total 390 ml 1455 ml Output Total 820 ml 600 ml Balance -430 ml 855 ml Intake Oral 390 ml 630 ml IV Total 825 ml Output Urine Total 600 ml 600 ml Post Void Residual 220 ml Bladder Scan Volume Amount 201-300 ml # Voids 3 Dressing: saturated Wound: other Cardiovascular: RSR Respiratory: clear Abdomen: soft, non-tender, non-distended Extremities: tenderness, cyanosis Laboratory Tests Test 01/10/19 17:42 01/11/19 05:50 Calcium (Send out) Pending Vitamin D 25-Hydroxy Pending 25-Hydroxy Vitamin D2 Pending 25-Hydroxy Vitamin D3 Pending Parathyroid Hormone (Intact) Pending Parathyroid Hormone Related Protein Pending White Blood Count 11.2 K/UL (4.8-10.8) H Red Blood Count 4.15 M/UL (4.70-6.10) L Hemoglobin 11.8 G/DL (14.2-18.0) L Hematocrit 37.0 % (42.0-52.0) L Mean Corpuscular Volume 89 FL (80-99) Mean Corpuscular Hemoglobin 28.5 PG (27.0-31.0) Mean Corpuscular Hemoglobin Concent 31.9 G/DL (32.0-36.0) L Red Cell Distribution Width 14.1 % (11.6-14.8) Platelet Count 312 K/UL (150-450) Mean Platelet Volume 8.4 FL (6.5-10.1) Neutrophils (%) (Auto) 66.5 % (45.0-75.0) Lymphocytes (%) (Auto) 19.2 % (20.0-45.0) L Monocytes (%) (Auto) 11.0 % (1.0-10.0) H Eosinophils (%) (Auto) 2.0 % (0.0-3.0) Basophils (%) (Auto) 1.3 % (0.0-2.0) Sodium Level 137 MMOL/L (136-145) Potassium Level 5.6 MMOL/L (3.5-5.1) H Chloride Level 105 MMOL/L (98-107) Carbon Dioxide Level 26 MMOL/L (21-32) Anion Gap 6 mmol/L (5-15) Blood Urea Nitrogen 66 mg/dL (7-18) H Creatinine 1.6 MG/DL (0.55-1.30) H Estimat Glomerular Filtration Rate 52.7 mL/min (>60) Glucose Level 107 MG/DL (74-106) H Calcium Level 11.4 MG/DL (8.5-10.1) H Plan Problems: (1) Ulcer of left ankle Assessment & Plan: large chronic left ankle ulceration near circumferential on left ankle. full thickness with eschar on some areas and some areas of granulation tissue. no drainage. no fluctuance. tender, periwound okay. pulses diminished. calf okay. foot with decreased cap refill. please see photos Plain films noted venous duplex without dvt and patent. labs noted long discussion about wound and leg with patient. states he has no intention of having debridement, grafting, or amputation at anytime. will now allow wound to be cleaned properly. will only allow for dressing to be changed. -wash left ankle daily with NS. apply xeroform to wound, ABD, and wrap with kerlix -okay to d/c from surgical standpoint -outpatient wound care follow up thank you will follow with recs. (2) Failure to thrive in adult Assessment & Plan: DAILY ESTIMATED NEEDS: Needs based on wounds, DM 70.5kg 25-35 kcals/kg 1644-8409 total kcals 1.25-1.5 g protein/kg 88-106 g total protein 25-30 mL/kg 5626-7626 total fluid mLs NUTRITION DIAGNOSIS: 1) Increased protein needs r/t wound healing as evidenced by pt with L-ankle full thickness ulcer 2) Altered nutrition related lab values r/t renal dysfunction pending workup as evidenced by elev K (6.0-> 5.6), elev BUN (66, trending up), elev Creat (1.6). CURRENT DIET: CCHO MED PO DIET RECOMMENDATIONS: RENAL DIET + DOUBLE PROTIONS + NEPRO 1 TETRA ABRAM DAILY ADDITIONAL RECOMMENDATIONS: 1) calibrated bed scale wts (Per SNF: 155#) 2) WOUND CARE: add YUNI BID + VIT C 500mg BID + MVI x1 3) Monitor po intake -> pt on multiple psych meds, may alter appetite -> Varibale intake, rec Glucerna daily 4) Add HS snack to prevent hypoglycemia in the AM. 5) REC DIET CHANGE TO RENAL / SOFT EASY CHEW + NEPRO Devon Sullivan Jan 11, 2019 13:37
--- NOTE | 2019-01-11 15:12 | Pulmonology Progress Note ---
Assessment/Plan Problems: (1) Cellulitis (2) Severe anemia (3) Hypertension (4) UTI (urinary tract infection) (5) Schizoaffective disorder (6) Diabetes (7) History of CVA (cerebrovascular accident) Assessment/Plan all reviewed doing better, no new complains in better spirit wound care check cultures symptomatic treatment respiratory treatment dvt prophylaxis. dc planning in progress Subjective ROS Limited/Unobtainable: No Constitutional: Reports: no symptoms HEENT: Repors: no symptoms Respiratory: Reports: no symptoms Allergies: Coded Allergies: THIORIDAZINE (Unverified Allergy, Mild, HIVES, 04/06/15) PENICILLIN (Unverified Allergy, Unknown, 06/15/15) PENICILLINS (Unverified Allergy, Unknown, 11/24/17) Objective Last 24 Hour Vital Signs Date Time Temp Pulse Resp B/P (MAP) Pulse Ox O2 Delivery O2 Flow Rate FiO2 01/11/19 12:00 98.2 85 18 135/68 (90) 95 01/11/19 09:09 82 138/72 01/11/19 09:08 82 138/72 01/11/19 09:00 Room Air Room Air 01/11/19 08:00 97.8 82 18 138/72 (94) 95 01/11/19 04:00 97.9 97 18 128/87 (101) 95 01/11/19 00:00 98.9 109 18 99/61 (74) 97 01/10/19 21:26 113 112/69 01/10/19 21:04 Room Air Room Air 01/10/19 20:00 97.9 115 18 110/58 (75) 97 01/10/19 16:00 97.2 102 20 100/59 (73) 98 Intake and Output 01/10/19 01/11/19 19:00 07:00 Intake Total 390 ml 1455 ml Output Total 820 ml 600 ml Balance -430 ml 855 ml Intake Oral 390 ml 630 ml IV Total 825 ml Output Urine Total 600 ml 600 ml Post Void Residual 220 ml Bladder Scan Volume Amount 201-300 ml # Voids 3 Objective General Appearance: WD/WN Lines, tubes and drains: peripheral HEENT: normocephalic, atraumatic Neck: non-tender, supple Respiratory/Chest: chest wall non-tender, lungs clear Breasts: no masses Cardiovascular/Chest: normal rate, no JVD Abdomen: normal bowel sounds Genitourinary/Rectal: normal genital exam, heme negative stool Extremities: normal range of motion, non-tender Skin Exam: normal pigmentation Neurologic: public health officer II-XII 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 Laboratory Tests 01/10/19 17:42: Calcium (Send out) [Pending], Vitamin D 25-Hydroxy [Pending], 25-Hydroxy Vitamin D2 [Pending], 25-Hydroxy Vitamin D3 [Pending], Parathyroid Hormone ( Intact) [Pending], Parathyroid Hormone Related Protein [Pending] 01/11/19 05:50: White Blood Count 11.2H, Red Blood Count 4.15L, Hemoglobin 11.8L, Hematocrit 37.0L, Mean Corpuscular Volume 89, Mean Corpuscular Hemoglobin 28.5, Mean Corpuscular Hemoglobin Concent 31.9L, Red Cell Distribution Width 14.1, Platelet Count 312, Mean Platelet Volume 8.4, Neutrophils (%) (Auto) 66.5, Lymphocytes (%) (Auto) 19.2L, Monocytes (%) (Auto) 11.0H, Eosinophils (%) (Auto ) 2.0, Basophils (%) (Auto) 1.3, Sodium Level 137, Potassium Level 5.6H, Chloride Level 105, Carbon Dioxide Level 26, Anion Gap 6, Blood Urea Nitrogen 66H, Creatinine 1.6H, Estimat Glomerular Filtration Rate 52.7, Glucose Level 107H, Calcium Level 11.4H Current Medications Medications (Trade) Dose Ordered Sig/Taco Route PRN Reason Start Time Stop Time Status Last Admin Dose Admin Acetaminophen (Tylenol) 650 mg Q4H PRN ORAL fever 12/26/18 19:30 01/25/19 19:29 Amlodipine Besylate (Norvasc) 10 mg DAILY ORAL 12/27/18 09:00 01/26/19 08:59 01/11/19 09:09 Benztropine Mesylate (Cogentin) 1 mg THREE TIMES A DAY ORAL 12/27/18 18:00 01/26/19 17:59 01/11/19 12:22 Clonidine HCl (Catapres Tab) 0.1 mg Q6H PRN ORAL For High Blood Pressure 12/26/18 20:00 01/25/19 19:59 Clopidogrel Bisulfate (Plavix) 75 mg DAILY ORAL 12/27/18 09:00 01/26/19 08:59 01/11/19 09:09 Dextrose (Dextrose 50%) 25 ml Q30M PRN IV Hypoglycemia 12/26/18 19:45 01/25/19 19:33 Dextrose (Dextrose 50%) 50 ml Q30M PRN IV hypoglycemia 12/26/18 19:45 01/25/19 19:44 Divalproex Sodium (Depakote) 250 mg Q12HR ORAL 12/26/18 21:00 01/25/19 20:59 01/11/19 09:09 Gabapentin (Neurontin) 300 mg THREE TIMES A DAY ORAL 12/27/18 09:00 01/26/19 08:59 01/11/19 12:22 Haloperidol (Haldol) 5 mg TID ORAL 12/27/18 18:00 01/26/19 17:59 01/11/19 12:22 Heparin Sodium (Porcine) (Heparin 5000 units/ml) 5,000 units EVERY 12 HOURS SUBQ 12/26/18 21:00 01/25/19 20:59 01/11/19 09:14 Insulin Aspart (NovoLOG) BEFORE MEALS AND HS SUBQ 12/26/18 21:00 01/25/19 20:59 01/10/19 11:56 Magnesium Hydroxide (Mom) 30 ml DAILYPRN PRN ORAL Constipation 12/26/18 20:00 01/25/19 19:59 01/07/19 13:30 Metoprolol Tartrate (Lopressor) 25 mg Q12HR ORAL 01/10/19 21:00 02/09/19 20:59 01/11/19 09:08 Nitroglycerin (Ntg) 0.4 mg Q5M PRN SL Prn Chest Pain 12/26/18 19:30 01/25/19 19:29 01/01/19 15:18 Ondansetron HCl (Zofran) 4 mg Q6H PRN IVP Nausea & Vomiting 12/26/18 19:30 01/25/19 19:29 12/29/18 09:04 Pantoprazole (Protonix) 40 mg DAILY ORAL 12/27/18 09:00 01/26/19 08:59 01/11/19 09:08 Paroxetine HCl (Paxil) 30 mg DAILY ORAL 12/27/18 09:00 01/26/19 08:59 01/11/19 09:08 Polyethylene Glycol (Miralax) 17 gm DAILYPRN PRN ORAL Constipation 12/26/18 20:00 01/25/19 19:29 Quetiapine Fumarate (SEROquel) 100 mg THREE TIMES A DAY ORAL 12/27/18 09:00 01/26/19 08:59 01/11/19 12:22 Sodium Chloride 1,000 ml @ 75 mls/hr [id number] IV 01/10/19 17:00 02/09/19 16:59 01/11/19 06:25 Tamsulosin HCl (Flomax) 0.4 mg BEDTIME ORAL 12/26/18 21:00 01/25/19 20:59 01/10/19 21:26 Trazodone HCl (Desyrel) 100 mg BEDTIME ORAL 12/26/18 21:00 01/25/19 20:59 01/10/19 21:25 Vanesa Skinner MD Jan 11, 2019 15:12
[2019-01-11 16:00] VITALS: BP 116/72
--- NOTE | 2019-01-11 16:40 | Diagnostic Imaging Report ---
Indication: Reason For Exam: RENAL-A Technique: Grayscale and duplex images of the kidneys, retroperitoneum, and bladder were obtained. Comparison: none Findings: Exam is limited, due to patient being contracted and unable to cooperate optimally. Right kidney measures 10.3 cm in length. Left kidney could not be demonstrated due to overlying bowel gas and inability to position the patient. Right kidney demonstrates normal echogenicity. There is mild fullness to the right renal collecting system. A right urinary bladder jet was noted on scanning of the bladder. No focal abnormality. Normal inferior vena cava. Bladder is normal. Prostate could not be demonstrated Impression: Limited exam, with inability to visualize left kidney Mild right renal pelvic fullness, significance uncertain. Note that presence of a right urinary bladder jet reasonably indicates patency of the right ureter.
--- NOTE | 2019-01-11 17:00 | Progress Note ---
DATE: 01/11/2019 NOTE: "POOR AUDIO QUALITY" SUBJECTIVE: This is a 68-year-old male patient with a left ankle ulcer. This patient continues to have some mood lability mood lability worsened by stress of medical illness. MENTAL STATUS EXAMINATION: A 68-year-old male. Appearance is disheveled. Attitude, irritable and agitated. Affect, guarded and restricted. Intellect poor. Mood, depressed and anxious. Motor activity, psychomotor agitation. Attention span is poor. Orientation x2. Speech is low volume and slurred. Thought process, disorganized and illogical. Insight and judgment is poor. DIAGNOSIS: Schizoaffective, bipolar type. PLAN: Treat him with Depakote 250 twice a day, Haldol 5 two times a day, Seroquel 100 mg three times a day, Paxil 30 mg daily, and Neurontin. Provided him with 20 minutes of encouraged him to interact appropriately with staff and other patients. Twenty 20 minutes of cognitive behavioral therapy to help him identify his automatic negative thoughts and help him to convert those negative thoughts to more positive thoughts to prevent stress, anxiety, and mood lability. Chart was reviewed. Discussed with staff. Seen and assessed in his room. Twenty minutes of cognitive behavioral therapy provided. Uziel Collado M.D. DR: Brittany JOB#: [id number] CC:
--- NOTE | 2019-01-11 17:10 | Infectious Diseases Prog Note ---
Assessment/Plan Assessment/Plan Assessment: L ankle ulcer- mild gavin wound cellulitis;ulcer itself not infected Wnd : Morg. M , StrpGrpG, cantor S PsA( colonizers ) -Xray ankle: No definite acute bony process. Possible lateral soft tissue irregularity-correlate with clinical findings -Bcx neg Afebrile Mild leukocytosis; SP DM2 HTN COPD SNF resident Plan: -Continue to monitor off abx as he is clinically stable -01/03 SP Doxycycline #7 IV Vancomycin #3 12/28 -s/p IV Vancomycin x1 12/26 -Monitor CBC/CMP, temperatures -wound care Subjective Allergies: Coded Allergies: THIORIDAZINE (Unverified Allergy, Mild, HIVES, 04/06/15) PENICILLIN (Unverified Allergy, Unknown, 06/15/15) PENICILLINS (Unverified Allergy, Unknown, 11/24/17) Subjective afebrile mild leukocytosis off abx Objective Vital Signs Last 24 Hour Vital Signs Date Time Temp Pulse Resp B/P (MAP) Pulse Ox O2 Delivery O2 Flow Rate FiO2 01/11/19 16:00 98.0 90 20 116/72 (87) 95 01/11/19 12:00 98.2 85 18 135/68 (90) 95 01/11/19 09:09 82 138/72 01/11/19 09:08 82 138/72 01/11/19 09:00 Room Air Room Air 01/11/19 08:00 97.8 82 18 138/72 (94) 95 01/11/19 04:00 97.9 97 18 128/87 (101) 95 01/11/19 00:00 98.9 109 18 99/61 (74) 97 01/10/19 21:26 113 112/69 01/10/19 21:04 Room Air Room Air 01/10/19 20:00 97.9 115 18 110/58 (75) 97 Height (Feet): 5 Height (Inches): 10.00 Weight (Pounds): 134 Objective General Appearance: no apparent distress, alert, non-toxic HEENT: normocephalic, atraumatic bilateral eye PERRL, normal pharynx Neck: full range of motion, supple/symm/no masses Respiratory: chest non-tender, lungs clear, normal breath sounds, speaking full sentences Cardiovascular : regular rate, rhythm, no edema Gastrointestinal: normal bowel sounds, non tender, soft, non-distended, no guarding, no rebound Genitourinary: normal inspection, no CVA tenderness Musculoskeletal: back normal, gait/station normal, normal range of motion, non- tender Neurologic: alert, oriented x3, responsive, motor strength/tone normal, sensory intact, speech normal Psychiatric: judgement/insight normal, memory normal, mood/affect normal, no suicidal/homicidal ideation Skin: other - large ulcer to L ankle. surrounding erythema/induration Laboratory Tests Test 01/10/19 17:42 01/11/19 05:50 Calcium (Send out) Pending Vitamin D 25-Hydroxy Pending 25-Hydroxy Vitamin D2 Pending 25-Hydroxy Vitamin D3 Pending Parathyroid Hormone (Intact) Pending Parathyroid Hormone Related Protein Pending White Blood Count 11.2 K/UL (4.8-10.8) H Red Blood Count 4.15 M/UL (4.70-6.10) L Hemoglobin 11.8 G/DL (14.2-18.0) L Hematocrit 37.0 % (42.0-52.0) L Mean Corpuscular Volume 89 FL (80-99) Mean Corpuscular Hemoglobin 28.5 PG (27.0-31.0) Mean Corpuscular Hemoglobin Concent 31.9 G/DL (32.0-36.0) L Red Cell Distribution Width 14.1 % (11.6-14.8) Platelet Count 312 K/UL (150-450) Mean Platelet Volume 8.4 FL (6.5-10.1) Neutrophils (%) (Auto) 66.5 % (45.0-75.0) Lymphocytes (%) (Auto) 19.2 % (20.0-45.0) L Monocytes (%) (Auto) 11.0 % (1.0-10.0) H Eosinophils (%) (Auto) 2.0 % (0.0-3.0) Basophils (%) (Auto) 1.3 % (0.0-2.0) Sodium Level 137 MMOL/L (136-145) Potassium Level 5.6 MMOL/L (3.5-5.1) H Chloride Level 105 MMOL/L (98-107) Carbon Dioxide Level 26 MMOL/L (21-32) Anion Gap 6 mmol/L (5-15) Blood Urea Nitrogen 66 mg/dL (7-18) H Creatinine 1.6 MG/DL (0.55-1.30) H Estimat Glomerular Filtration Rate 52.7 mL/min (>60) Glucose Level 107 MG/DL (74-106) H Calcium Level 11.4 MG/DL (8.5-10.1) H Current Medications Medications (Trade) Dose Ordered Sig/Taco Route PRN Reason Start Time Stop Time Status Last Admin Dose Admin Acetaminophen (Tylenol) 650 mg Q4H PRN ORAL fever 12/26/18 19:30 01/25/19 19:29 Amlodipine Besylate (Norvasc) 10 mg DAILY ORAL 12/27/18 09:00 01/26/19 08:59 01/11/19 09:09 Benztropine Mesylate (Cogentin) 1 mg THREE TIMES A DAY ORAL 12/27/18 18:00 01/26/19 17:59 01/11/19 12:22 Clonidine HCl (Catapres Tab) 0.1 mg Q6H PRN ORAL For High Blood Pressure 12/26/18 20:00 01/25/19 19:59 Clopidogrel Bisulfate (Plavix) 75 mg DAILY ORAL 12/27/18 09:00 01/26/19 08:59 01/11/19 09:09 Dextrose (Dextrose 50%) 25 ml Q30M PRN IV Hypoglycemia 12/26/18 19:45 01/25/19 19:33 Dextrose (Dextrose 50%) 50 ml Q30M PRN IV hypoglycemia 12/26/18 19:45 01/25/19 19:44 Divalproex Sodium (Depakote) 250 mg Q12HR ORAL 12/26/18 21:00 01/25/19 20:59 01/11/19 09:09 Gabapentin (Neurontin) 300 mg THREE TIMES A DAY ORAL 12/27/18 09:00 01/26/19 08:59 01/11/19 12:22 Haloperidol (Haldol) 5 mg TID ORAL 12/27/18 18:00 01/26/19 17:59 01/11/19 12:22 Heparin Sodium (Porcine) (Heparin 5000 units/ml) 5,000 units EVERY 12 HOURS SUBQ 12/26/18 21:00 01/25/19 20:59 01/11/19 09:14 Insulin Aspart (NovoLOG) BEFORE MEALS AND HS SUBQ 12/26/18 21:00 01/25/19 20:59 01/10/19 11:56 Magnesium Hydroxide (Mom) 30 ml DAILYPRN PRN ORAL Constipation 12/26/18 20:00 01/25/19 19:59 01/07/19 13:30 Metoprolol Tartrate (Lopressor) 25 mg Q12HR ORAL 01/10/19 21:00 02/09/19 20:59 01/11/19 09:08 Nitroglycerin (Ntg) 0.4 mg Q5M PRN SL Prn Chest Pain 12/26/18 19:30 01/25/19 19:29 01/01/19 15:18 Ondansetron HCl (Zofran) 4 mg Q6H PRN IVP Nausea & Vomiting 12/26/18 19:30 01/25/19 19:29 12/29/18 09:04 Pantoprazole (Protonix) 40 mg DAILY ORAL 12/27/18 09:00 01/26/19 08:59 01/11/19 09:08 Paroxetine HCl (Paxil) 30 mg DAILY ORAL 12/27/18 09:00 01/26/19 08:59 01/11/19 09:08 Polyethylene Glycol (Miralax) 17 gm DAILYPRN PRN ORAL Constipation 12/26/18 20:00 01/25/19 19:29 Quetiapine Fumarate (SEROquel) 100 mg THREE TIMES A DAY ORAL 12/27/18 09:00 01/26/19 08:59 01/11/19 12:22 Sodium Chloride 1,000 ml @ 75 mls/hr [id number] IV 01/10/19 17:00 02/09/19 16:59 01/11/19 06:25 Tamsulosin HCl (Flomax) 0.4 mg BEDTIME ORAL 12/26/18 21:00 01/25/19 20:59 01/10/19 21:26 Trazodone HCl (Desyrel) 100 mg BEDTIME ORAL 12/26/18 21:00 01/25/19 20:59 01/10/19 21:25 Mireya Campos M.D. Jan 11, 2019 17:10
--- NOTE | 2019-01-11 18:59 | NUR ---
HAND-OFF: Report given to Lyndsay.
--- NOTE | 2019-01-11 19:30 | NUR ---
NURSE NOTES: RECEIVED PATIENT LYING IN BED, AWAKE, ALERT/ORIENTED TO SELF, REALITY ORIENTATION PROVIDED DURING ASSESSMENT, DENIES PAIN. NO SIGNS AND SYMPTOMS OF ACUTE CARDIO RESPIRATORY DISTRESS/SHORTNESS OF BREATH, NO EDEMA NOTED. RECEIVED PATIENT WITHOUT IV ACCESS. NO REPORT OF GI DISCOMFORT, NO N/V/D. LEFT LOWER EXTREMITY CONTRACTED, RIGHT LOWER EXTREMITY FULLY EXTENDED, ASSISTED WITH COMFORT, CARE, TOLERATED WELL. SKIN VERY DRY. SIDE RAILS UP X3, BED IN LOWEST POSITION FOR SAFETY. CALL LIGHT WITHIN REACH. FREQUENT ROUNDING FOR SAFETY/NEEDS.
[2019-01-11 20:00] VITALS: BP 130/66
[2019-01-11] MEDS: TraZODone 100mg tab ORAL SCH (20:21)
[2019-01-11] MEDS: Tamsulosin 0.4mg cap ORAL SCH (20:23)
--- NOTE | 2019-01-11 20:37 | Nephrology Progress Note ---
Assessment/Plan Assessment 1. Hyperkalemia. 2. Acute renal failure 3. Hypercalcemia. 4.PVD 5.HTN Plan Romero continue ivf low K diet monitoring urine out avoid NSAID check post voiding Subjective Constitutional: Reports: no symptoms HEENT: Reports: no symptoms Genitourinary: Reports: no symptoms Neurologic/Psychiatric: Reports: no symptoms Objective Objective Last 24 Hour Vital Signs Date Time Temp Pulse Resp B/P (MAP) Pulse Ox O2 Delivery O2 Flow Rate FiO2 01/11/19 16:00 98.0 90 20 116/72 (87) 95 01/11/19 12:00 98.2 85 18 135/68 (90) 95 01/11/19 09:09 82 138/72 01/11/19 09:08 82 138/72 01/11/19 09:00 Room Air Room Air 01/11/19 08:00 97.8 82 18 138/72 (94) 95 01/11/19 04:00 97.9 97 18 128/87 (101) 95 01/11/19 00:00 98.9 109 18 99/61 (74) 97 01/10/19 21:26 113 112/69 01/10/19 21:04 Room Air Room Air Intake and Output 01/10/19 01/11/19 19:00 07:00 Intake Total 390 ml 1455 ml Output Total 820 ml 600 ml Balance -430 ml 855 ml Intake Oral 390 ml 630 ml IV Total 825 ml Output Urine Total 600 ml 600 ml Post Void Residual 220 ml Bladder Scan Volume Amount 201-300 ml # Voids 3 Laboratory Tests 01/11/19 05:50: White Blood Count 11.2H, Red Blood Count 4.15L, Hemoglobin 11.8L, Hematocrit 37.0L, Mean Corpuscular Volume 89, Mean Corpuscular Hemoglobin 28.5, Mean Corpuscular Hemoglobin Concent 31.9L, Red Cell Distribution Width 14.1, Platelet Count 312, Mean Platelet Volume 8.4, Neutrophils (%) (Auto) 66.5, Lymphocytes (%) (Auto) 19.2L, Monocytes (%) (Auto) 11.0H, Eosinophils (%) (Auto ) 2.0, Basophils (%) (Auto) 1.3, Sodium Level 137, Potassium Level 5.6H, Chloride Level 105, Carbon Dioxide Level 26, Anion Gap 6, Blood Urea Nitrogen 66H, Creatinine 1.6H, Estimat Glomerular Filtration Rate 52.7, Glucose Level 107H, Calcium Level 11.4H Height (Feet): 5 Height (Inches): 10.00 Weight (Pounds): 134 Objective GENERAL: The patient is a chronically ill-looking male. VITAL SIGNS: Temperature of 98 degrees, blood pressure 137/76, pulse rate of 82, respiratory rate of 18. HEAD AND NECK: Bitemporal wasting. Dry mucous membranes. Extraocular movements intact. Pupils are reactive to light and accommodation. LUNGS: Clear to auscultation. CARDIAC: Regular rate and rhythm. S1, S2 normal. No murmurs or rubs. ABDOMEN: Soft, nontender, nondistended. EXTREMITIES: Trace edema. Left lower extremity ulceration and dressing. Ximena Lee MD Jan 11, 2019 20:37
--- NOTE | 2019-01-11 21:15 | Progress Note ---
DATE: 01/10/2019 NOTE: INCOMPLETE DICTATION PSYCHOTHERAPY CONSULTATION PROGRESS NOTE TREATING ATTENDING PHYSICIAN: Jarek Gonzalez D.O. HISTORY OF PRESENT ILLNESS: This patient is a 68-year-old male patient diagnosed with schizoaffective disorder, bipolar type. Irvin Zheng PsyD. DR: FAVIOLA JOB#: [id number] CC:
[2019-01-12] VITALS: BP 101/62
[2019-01-12 04:00] VITALS: BP 134/79
[2019-01-12] MEDS: NovoLOG Insulin Flexpen SUBQ SCH ×4 (06:30→20:48)
[2019-01-12 07:08] LABS: BASOPHILS % (AUTO) 1.3 % (0.0-2.0); EOSINOPHILS % (AUTO) 2.6 % (0.0-3.0); HEMATOCRIT 39.6 % (42.0-52.0); HEMOGLOBIN 12.5 G/DL (14.2-18.0); LYMPHOCYTES % (AUTO) 15.6 % (20.0-45.0); MEAN CORPUSCULAR VOLUME 89 FL (80-99); MONOCYTES % (AUTO) 9.8 % (1.0-10.0); NEUTROPHILS % (AUTO) 70.7 % (45.0-75.0); PLATELET COUNT 323 K/UL (150-450); RED BLOOD COUNT 4.48 M/UL (4.70-6.10); RED CELL DISTRIBUTION WIDTH 14.2 % (11.6-14.8); WHITE BLOOD COUNT 12.3 K/UL (4.8-10.8)
[2019-01-12 07:20] LABS: ANION GAP 10 mmol/L (5-15); BLOOD UREA NITROGEN 59 mg/dL (7-18); CALCIUM 11.5 MG/DL (8.5-10.1); CARBON DIOXIDE 26 MMOL/L (21-32); CHLORIDE 105 MMOL/L (98-107); CREATININE 1.5 MG/DL (0.55-1.30); POTASSIUM 4.6 MMOL/L (3.5-5.1); SODIUM 141 MMOL/L (136-145)
[2019-01-12 07:42] LABS: ALANINE AMINOTRANSFERASE 52 U/L (12-78); ALBUMIN 2.6 G/DL (3.4-5.0); ALKALINE PHOSPHATASE 174 U/L (46-116); ASPARTATE AMINO TRANSFERASE 93 U/L (15-37); BILIRUBIN,DIRECT < 0.1 MG/DL (0.0-0.3); BILIRUBIN,TOTAL 0.3 MG/DL (0.2-1.0)
[2019-01-12 08:00] VITALS: BP 101/74
--- NOTE | 2019-01-12 08:21 | General Progress Note ---
Assessment/Plan Problem List: (1) History of CVA (cerebrovascular accident) ICD Codes: Z86.73 - Personal history of transient ischemic attack (TIA), and cerebral infarction without residual deficits SNOMED: 839125454 (2) Cellulitis ICD Codes: L03.90 - Cellulitis, unspecified SNOMED: 044382188 (3) Anemia ICD Codes: D64.9 - Anemia SNOMED: 670674512 (4) Diabetes ICD Codes: E11.9 - Diabetes SNOMED: 07083593 (5) Hypertension ICD Codes: I10 - Hypertension SNOMED: 24257084 (6) Failure to thrive in adult ICD Codes: R62.7 - Adult failure to thrive SNOMED: 950722295 (7) Ulcer of left ankle ICD Codes: L97.329 - Non-pressure chronic ulcer of left ankle with unspecified severity SNOMED: 464420498, 05164515 Qualifiers: Qualified Codes: L97.322 - Non-pressure chronic ulcer of left ankle with fat layer exposed Status: unchanged Assessment/Plan wound care abx pain control cbc bmp am dc plan Subjective Constitutional: Reports: weakness Allergies: Coded Allergies: THIORIDAZINE (Unverified Allergy, Mild, HIVES, 04/06/15) PENICILLIN (Unverified Allergy, Unknown, 06/15/15) PENICILLINS (Unverified Allergy, Unknown, 11/24/17) All Systems: reviewed and negative except above Subjective sl foot pain Objective Last 24 Hour Vital Signs Date Time Temp Pulse Resp B/P (MAP) Pulse Ox O2 Delivery O2 Flow Rate FiO2 01/12/19 04:00 97.0 94 16 134/79 (97) 96 01/12/19 00:00 97.1 89 18 101/62 (75) 99 01/11/19 20:35 Room Air Room Air 01/11/19 20:23 95 138/72 01/11/19 20:00 97.6 70 20 130/66 (87) 97 01/11/19 16:00 98.0 90 20 116/72 (87) 95 01/11/19 12:00 98.2 85 18 135/68 (90) 95 01/11/19 09:09 82 138/72 01/11/19 09:08 82 138/72 01/11/19 09:00 Room Air Room Air Intake and Output 01/11/19 01/12/19 19:00 07:00 Intake Total 120 ml Balance 120 ml Intake Oral 120 ml # Voids 3 2 Laboratory Tests 01/12/19 05:10: White Blood Count 12.3H, Red Blood Count 4.48L, Hemoglobin 12.5L, Hematocrit 39.6L, Mean Corpuscular Volume 89, Mean Corpuscular Hemoglobin 27.9, Mean Corpuscular Hemoglobin Concent 31.5L, Red Cell Distribution Width 14.2, Platelet Count 323, Mean Platelet Volume 8.7, Neutrophils (%) (Auto) 70.7, Lymphocytes (%) (Auto) 15.6L, Monocytes (%) (Auto) 9.8, Eosinophils (%) (Auto) 2.6, Basophils (%) (Auto) 1.3, Sodium Level 141, Potassium Level 4.6, Chloride Level 105, Carbon Dioxide Level 26, Anion Gap 10, Blood Urea Nitrogen 59H, Creatinine 1.5H, Estimat Glomerular Filtration Rate 56.7, Glucose Level 100, Calcium Level 11.5H, Total Bilirubin 0.3, Direct Bilirubin < 0.1, Aspartate Amino Transf (AST/SGOT) 93H, Alanine Aminotransferase (ALT/SGPT) 52, Alkaline Phosphatase 174H, Total Protein 10.2H, Albumin 2.6L Height (Feet): 5 Height (Inches): 10.00 Weight (Pounds): 134 General Appearance: lethargic EENT: normal ENT inspection Neck: normal alignment Cardiovascular: normal peripheral pulses, normal rate, regular rhythm Respiratory/Chest: chest wall non-tender, lungs clear, normal breath sounds Abdomen: normal bowel sounds, non tender, soft Extremities: normal inspection Edema: no edema noted Arm (L), no edema noted Arm (R), no edema noted Leg (L), no edema noted Leg (R), no edema noted Pedal (L), no edema noted Pedal (R), no edema noted Generalized Neurologic: motor weakness Skin: normal pigmentation, warm/dry Objective foot dressing c&d Jarek Gonzalez DO Jan 12, 2019 08:21
[2019-01-12] MEDS: Metoprolol 25mg tab ORAL SCH ×2 (09:00→20:41)
--- NOTE | 2019-01-12 09:00 | NUR ---
NURSE NOTES: Patient received A/A/Ox3. calm and able to follow commands. Breathing unlabored on room air. No signs of respiratory distress. no IV access, made Dr Gonzalez aware due to hardstick. new order obtained for PICC line placement. Bed locked in low position, call light placed within reach. Will continue to monitor.
[2019-01-12] MEDS: PARoxetine 10mg tab ORAL SCH (09:31)
[2019-01-12] MEDS: Benztropine 1mg tab ORAL SCH ×3 (09:33→17:16)
[2019-01-12] MEDS: Heparin 5000 units/ml inj SUBQ SCH ×2 (09:41→20:44)
--- NOTE | 2019-01-12 10:36 | NUR ---
NURSE NOTES: patient signed, dated and timed consent for PICC line placement.
--- NOTE | 2019-01-12 11:37 | Surgery Progress Note ---
Surgery Progress Note Subjective Additional Comments leukocytosis worsening. exam unchanged. states he is okay Objective Last 24 Hour Vital Signs Date Time Temp Pulse Resp B/P (MAP) Pulse Ox O2 Delivery O2 Flow Rate FiO2 01/12/19 09:00 Room Air Room Air 01/12/19 09:00 74 101/74 01/12/19 09:00 74 101/74 01/12/19 08:00 97.0 74 16 101/74 (83) 98 01/12/19 04:00 97.0 94 16 134/79 (97) 96 01/12/19 00:00 97.1 89 18 101/62 (75) 99 01/11/19 20:35 Room Air Room Air 01/11/19 20:23 95 138/72 01/11/19 20:00 97.6 70 20 130/66 (87) 97 01/11/19 16:00 98.0 90 20 116/72 (87) 95 01/11/19 12:00 98.2 85 18 135/68 (90) 95 I&O Intake and Output 01/11/19 01/12/19 19:00 07:00 Intake Total 120 ml Balance 120 ml Intake Oral 120 ml # Voids 3 2 Dressing: saturated Wound: other Cardiovascular: RSR Respiratory: decreased breath sounds Abdomen: soft, non-tender, present bowel sounds, non-distended Extremities: tenderness, cyanosis, other Laboratory Tests Test 01/12/19 05:10 White Blood Count 12.3 K/UL (4.8-10.8) H Red Blood Count 4.48 M/UL (4.70-6.10) L Hemoglobin 12.5 G/DL (14.2-18.0) L Hematocrit 39.6 % (42.0-52.0) L Mean Corpuscular Volume 89 FL (80-99) Mean Corpuscular Hemoglobin 27.9 PG (27.0-31.0) Mean Corpuscular Hemoglobin Concent 31.5 G/DL (32.0-36.0) L Red Cell Distribution Width 14.2 % (11.6-14.8) Platelet Count 323 K/UL (150-450) Mean Platelet Volume 8.7 FL (6.5-10.1) Neutrophils (%) (Auto) 70.7 % (45.0-75.0) Lymphocytes (%) (Auto) 15.6 % (20.0-45.0) L Monocytes (%) (Auto) 9.8 % (1.0-10.0) Eosinophils (%) (Auto) 2.6 % (0.0-3.0) Basophils (%) (Auto) 1.3 % (0.0-2.0) Sodium Level 141 MMOL/L (136-145) Potassium Level 4.6 MMOL/L (3.5-5.1) Chloride Level 105 MMOL/L (98-107) Carbon Dioxide Level 26 MMOL/L (21-32) Anion Gap 10 mmol/L (5-15) Blood Urea Nitrogen 59 mg/dL (7-18) H Creatinine 1.5 MG/DL (0.55-1.30) H Estimat Glomerular Filtration Rate 56.7 mL/min (>60) Glucose Level 100 MG/DL (74-106) Calcium Level 11.5 MG/DL (8.5-10.1) H Total Bilirubin 0.3 MG/DL (0.2-1.0) Direct Bilirubin < 0.1 MG/DL (0.0-0.3) Aspartate Amino Transf (AST/SGOT) 93 U/L (15-37) H Alanine Aminotransferase (ALT/SGPT) 52 U/L (12-78) Alkaline Phosphatase 174 U/L (46-116) H Total Protein 10.2 G/DL (6.4-8.2) H Albumin 2.6 G/DL (3.4-5.0) L Plan Problems: (1) Ulcer of left ankle Assessment & Plan: large chronic left ankle ulceration near circumferential on left ankle. full thickness with eschar on some areas and some areas of granulation tissue. no drainage. no fluctuance. tender, periwound okay. pulses diminished. calf okay. foot with decreased cap refill. please see photos Plain films noted venous duplex without dvt and patent. labs noted long discussion about wound and leg with patient. states he has no intention of having debridement, grafting, or amputation at anytime. will now allow wound to be cleaned properly. will only allow for dressing to be changed. -wash left ankle daily with NS. apply xeroform to wound, ABD, and wrap with kerlix -kellenay to d/c from surgical standpoint -outpatient wound care follow up thank you will follow with recs. (2) Failure to thrive in adult Assessment & Plan: DAILY ESTIMATED NEEDS: Needs based on wounds, DM 70.5kg 25-35 kcals/kg 7253-9614 total kcals 1.25-1.5 g protein/kg 88-106 g total protein 25-30 mL/kg 9042-9836 total fluid mLs NUTRITION DIAGNOSIS: 1) Increased protein needs r/t wound healing as evidenced by pt with L-ankle full thickness ulcer 2) Altered nutrition related lab values r/t renal dysfunction pending workup as evidenced by elev K (6.0-> 5.6), elev BUN (66, trending up), elev Creat (1.6). CURRENT DIET: CCHO MED PO DIET RECOMMENDATIONS: RENAL DIET + DOUBLE PROTIONS + NEPRO 1 TETRA ABRAM DAILY ADDITIONAL RECOMMENDATIONS: 1) calibrated bed scale wts (Per SNF: 155#) 2) WOUND CARE: add YUNI BID + VIT C 500mg BID + MVI x1 3) Monitor po intake -> pt on multiple psych meds, may alter appetite -> Varibale intake, rec Glucerna daily 4) Add HS snack to prevent hypoglycemia in the AM. 5) REC DIET CHANGE TO RENAL / SOFT EASY CHEW + NEPRO Devon Sullivan Jan 12, 2019 11:37
[2019-01-12 12:00] VITALS: BP 111/60
--- NOTE | 2019-01-12 12:02 | Infectious Diseases Prog Note ---
Assessment/Plan Assessment/Plan Assessment: L ankle ulcer- mild gavin wound cellulitis;ulcer itself not infected Wnd : Morg. M , StrpGrpG, cantor S PsA( colonizers ) -Xray ankle: No definite acute bony process. Possible lateral soft tissue irregularity-correlate with clinical findings -Bcx neg Afebrile Mild leukocytosis; recurrent, increasing DM2 HTN COPD SNF resident Plan: -Continue to monitor off abx as he is clinically stable -01/03 SP Doxycycline #7 IV Vancomycin #3 12/28 -s/p IV Vancomycin x1 12/26 -u/a, CXR -Monitor CBC/CMP, temperatures -wound care -CBC, CMP am Subjective Allergies: Coded Allergies: THIORIDAZINE (Unverified Allergy, Mild, HIVES, 04/06/15) PENICILLIN (Unverified Allergy, Unknown, 06/15/15) PENICILLINS (Unverified Allergy, Unknown, 11/24/17) Subjective afebrile mild leukocytosis increasing off abx Objective Vital Signs Last 24 Hour Vital Signs Date Time Temp Pulse Resp B/P (MAP) Pulse Ox O2 Delivery O2 Flow Rate FiO2 01/12/19 09:00 Room Air Room Air 01/12/19 09:00 74 101/74 01/12/19 09:00 74 101/74 01/12/19 08:00 97.0 74 16 101/74 (83) 98 01/12/19 04:00 97.0 94 16 134/79 (97) 96 01/12/19 00:00 97.1 89 18 101/62 (75) 99 01/11/19 20:35 Room Air Room Air 01/11/19 20:23 95 138/72 01/11/19 20:00 97.6 70 20 130/66 (87) 97 01/11/19 16:00 98.0 90 20 116/72 (87) 95 01/11/19 12:00 98.2 85 18 135/68 (90) 95 Height (Feet): 5 Height (Inches): 10.00 Weight (Pounds): 134 Objective General Appearance: no apparent distress, alert, non-toxic HEENT: normocephalic, atraumatic bilateral eye PERRL, normal pharynx Neck: full range of motion, supple/symm/no masses Respiratory: chest non-tender, lungs clear, normal breath sounds, speaking full sentences Cardiovascular : regular rate, rhythm, no edema Gastrointestinal: normal bowel sounds, non tender, soft, non-distended, no guarding, no rebound Genitourinary: normal inspection, no CVA tenderness Musculoskeletal: back normal, gait/station normal, normal range of motion, non- tender Neurologic: alert, oriented x3, responsive, motor strength/tone normal, sensory intact, speech normal Psychiatric: judgement/insight normal, memory normal, mood/affect normal, no suicidal/homicidal ideation Skin: other - large ulcer to L ankle. surrounding erythema/induration Laboratory Tests Test 01/12/19 05:10 White Blood Count 12.3 K/UL (4.8-10.8) H Red Blood Count 4.48 M/UL (4.70-6.10) L Hemoglobin 12.5 G/DL (14.2-18.0) L Hematocrit 39.6 % (42.0-52.0) L Mean Corpuscular Volume 89 FL (80-99) Mean Corpuscular Hemoglobin 27.9 PG (27.0-31.0) Mean Corpuscular Hemoglobin Concent 31.5 G/DL (32.0-36.0) L Red Cell Distribution Width 14.2 % (11.6-14.8) Platelet Count 323 K/UL (150-450) Mean Platelet Volume 8.7 FL (6.5-10.1) Neutrophils (%) (Auto) 70.7 % (45.0-75.0) Lymphocytes (%) (Auto) 15.6 % (20.0-45.0) L Monocytes (%) (Auto) 9.8 % (1.0-10.0) Eosinophils (%) (Auto) 2.6 % (0.0-3.0) Basophils (%) (Auto) 1.3 % (0.0-2.0) Sodium Level 141 MMOL/L (136-145) Potassium Level 4.6 MMOL/L (3.5-5.1) Chloride Level 105 MMOL/L (98-107) Carbon Dioxide Level 26 MMOL/L (21-32) Anion Gap 10 mmol/L (5-15) Blood Urea Nitrogen 59 mg/dL (7-18) H Creatinine 1.5 MG/DL (0.55-1.30) H Estimat Glomerular Filtration Rate 56.7 mL/min (>60) Glucose Level 100 MG/DL (74-106) Calcium Level 11.5 MG/DL (8.5-10.1) H Total Bilirubin 0.3 MG/DL (0.2-1.0) Direct Bilirubin < 0.1 MG/DL (0.0-0.3) Aspartate Amino Transf (AST/SGOT) 93 U/L (15-37) H Alanine Aminotransferase (ALT/SGPT) 52 U/L (12-78) Alkaline Phosphatase 174 U/L (46-116) H Total Protein 10.2 G/DL (6.4-8.2) H Albumin 2.6 G/DL (3.4-5.0) L Current Medications Medications (Trade) Dose Ordered Sig/Taco Route PRN Reason Start Time Stop Time Status Last Admin Dose Admin Acetaminophen (Tylenol) 650 mg Q4H PRN ORAL fever 12/26/18 19:30 01/25/19 19:29 Amlodipine Besylate (Norvasc) 10 mg DAILY ORAL 12/27/18 09:00 01/26/19 08:59 01/11/19 09:09 Benztropine Mesylate (Cogentin) 1 mg THREE TIMES A DAY ORAL 12/27/18 18:00 01/26/19 17:59 01/12/19 09:33 Clonidine HCl (Catapres Tab) 0.1 mg Q6H PRN ORAL For High Blood Pressure 12/26/18 20:00 01/25/19 19:59 Clopidogrel Bisulfate (Plavix) 75 mg DAILY ORAL 12/27/18 09:00 01/26/19 08:59 01/12/19 09:32 Dextrose (Dextrose 50%) 25 ml Q30M PRN IV Hypoglycemia 12/26/18 19:45 01/25/19 19:33 Dextrose (Dextrose 50%) 50 ml Q30M PRN IV hypoglycemia 12/26/18 19:45 01/25/19 19:44 Divalproex Sodium (Depakote) 250 mg Q12HR ORAL 12/26/18 21:00 01/25/19 20:59 01/12/19 09:32 Gabapentin (Neurontin) 300 mg THREE TIMES A DAY ORAL 12/27/18 09:00 01/26/19 08:59 01/12/19 09:32 Haloperidol (Haldol) 5 mg TID ORAL 12/27/18 18:00 01/26/19 17:59 01/12/19 09:31 Heparin Sodium (Porcine) (Heparin 5000 units/ml) 5,000 units EVERY 12 HOURS SUBQ 12/26/18 21:00 01/25/19 20:59 01/12/19 09:41 Insulin Aspart (NovoLOG) BEFORE MEALS AND HS SUBQ 12/26/18 21:00 01/25/19 20:59 01/10/19 11:56 Magnesium Hydroxide (Mom) 30 ml DAILYPRN PRN ORAL Constipation 12/26/18 20:00 01/25/19 19:59 01/07/19 13:30 Metoprolol Tartrate (Lopressor) 25 mg Q12HR ORAL 01/10/19 21:00 02/09/19 20:59 01/11/19 20:23 Nitroglycerin (Ntg) 0.4 mg Q5M PRN SL Prn Chest Pain 12/26/18 19:30 01/25/19 19:29 01/01/19 15:18 Ondansetron HCl (Zofran) 4 mg Q6H PRN IVP Nausea & Vomiting 12/26/18 19:30 01/25/19 19:29 12/29/18 09:04 Pantoprazole (Protonix) 40 mg DAILY ORAL 12/27/18 09:00 01/26/19 08:59 01/12/19 09:31 Paroxetine HCl (Paxil) 30 mg DAILY ORAL 12/27/18 09:00 01/26/19 08:59 01/12/19 09:31 Polyethylene Glycol (Miralax) 17 gm DAILYPRN PRN ORAL Constipation 12/26/18 20:00 01/25/19 19:29 Quetiapine Fumarate (SEROquel) 100 mg THREE TIMES A DAY ORAL 12/27/18 09:00 01/26/19 08:59 01/12/19 09:32 Sodium Chloride 1,000 ml @ 75 mls/hr [id number] IV 01/10/19 17:00 02/09/19 16:59 01/12/19 09:34 Tamsulosin HCl (Flomax) 0.4 mg BEDTIME ORAL 12/26/18 21:00 01/25/19 20:59 01/11/19 20:23 Trazodone HCl (Desyrel) 100 mg BEDTIME ORAL 12/26/18 21:00 01/25/19 20:59 01/11/19 20:21 Mireya Campos M.D. Jan 12, 2019 12:02
--- NOTE | 2019-01-12 12:22 | Nephrology Progress Note ---
Assessment/Plan Assessment 1. Hyperkalemia. resolved 2. Acute renal failure improving 3. Hypercalcemia. 4.PVD 5.HTN Plan Romero continue ivf low K diet monitoring urine out avoid NSAID check post voiding Subjective Constitutional: Reports: no symptoms HEENT: Reports: no symptoms Genitourinary: Reports: no symptoms Objective Objective Last 24 Hour Vital Signs Date Time Temp Pulse Resp B/P (MAP) Pulse Ox O2 Delivery O2 Flow Rate FiO2 01/12/19 09:00 Room Air Room Air 01/12/19 09:00 74 101/74 01/12/19 09:00 74 101/74 01/12/19 08:00 97.0 74 16 101/74 (83) 98 01/12/19 04:00 97.0 94 16 134/79 (97) 96 01/12/19 00:00 97.1 89 18 101/62 (75) 99 01/11/19 20:35 Room Air Room Air 01/11/19 20:23 95 138/72 01/11/19 20:00 97.6 70 20 130/66 (87) 97 01/11/19 16:00 98.0 90 20 116/72 (87) 95 Intake and Output 01/11/19 01/12/19 19:00 07:00 Intake Total 120 ml Balance 120 ml Intake Oral 120 ml # Voids 3 2 Laboratory Tests 01/12/19 05:10: White Blood Count 12.3H, Red Blood Count 4.48L, Hemoglobin 12.5L, Hematocrit 39.6L, Mean Corpuscular Volume 89, Mean Corpuscular Hemoglobin 27.9, Mean Corpuscular Hemoglobin Concent 31.5L, Red Cell Distribution Width 14.2, Platelet Count 323, Mean Platelet Volume 8.7, Neutrophils (%) (Auto) 70.7, Lymphocytes (%) (Auto) 15.6L, Monocytes (%) (Auto) 9.8, Eosinophils (%) (Auto) 2.6, Basophils (%) (Auto) 1.3, Sodium Level 141, Potassium Level 4.6, Chloride Level 105, Carbon Dioxide Level 26, Anion Gap 10, Blood Urea Nitrogen 59H, Creatinine 1.5H, Estimat Glomerular Filtration Rate 56.7, Glucose Level 100, Calcium Level 11.5H, Total Bilirubin 0.3, Direct Bilirubin < 0.1, Aspartate Amino Transf (AST/SGOT) 93H, Alanine Aminotransferase (ALT/SGPT) 52, Alkaline Phosphatase 174H, Total Protein 10.2H, Albumin 2.6L Height (Feet): 5 Height (Inches): 10.00 Weight (Pounds): 134 Objective GENERAL: The patient is a chronically ill-looking male. VITAL SIGNS: Temperature of 98 degrees, blood pressure 137/76, pulse rate of 82, respiratory rate of 18. HEAD AND NECK: Bitemporal wasting. Dry mucous membranes. Extraocular movements intact. Pupils are reactive to light and accommodation. LUNGS: Clear to auscultation. CARDIAC: Regular rate and rhythm. S1, S2 normal. No murmurs or rubs. ABDOMEN: Soft, nontender, nondistended. EXTREMITIES: Trace edema. Left lower extremity ulceration and dressing. Ximena Lee MD Jan 12, 2019 12:22
--- NOTE | 2019-01-12 12:45 | Diagnostic Imaging Report ---
EXAM: XR Chest, 1 View CLINICAL HISTORY: COUGH TECHNIQUE: Frontal view of the chest. COMPARISON: Chest x-ray dated 11/24/17 FINDINGS: Lungs: A triangular opacity overlies the lateral aspect of the right lower lung. Mildly increased interstitial markings. The lungs otherwise appear clear. Pleural space: Unremarkable. The costophrenic angles are sharp. No visible pneumothorax. Heart: Unremarkable. No cardiomegaly. Mediastinum: Unremarkable. Bones/joints: Unremarkable. IMPRESSION: 1. A triangular opacity overlies the lateral aspect of the right lower lung. This may represent overlapping soft tissue however cannot exclude underlying airspace disease/pneumonia. Recommend correlation with a lateral view. 2. Mildly increased interstitial markings. This is nonspecific but may suggest mild bronchitis or interstitial pneumonitis.
[2019-01-12 16:00] VITALS: BP 117/65
--- NOTE | 2019-01-12 16:42 | Pulmonology Progress Note ---
Assessment/Plan Problems: (1) Cellulitis (2) Severe anemia (3) Hypertension (4) UTI (urinary tract infection) (5) Schizoaffective disorder (6) Diabetes (7) History of CVA (cerebrovascular accident) Assessment/Plan all reviewed doing better, no new complains in better spirit wound care check cultures symptomatic treatment respiratory treatment dvt prophylaxis. dc planning in progress Subjective ROS Limited/Unobtainable: No Constitutional: Reports: no symptoms HEENT: Repors: no symptoms Allergies: Coded Allergies: THIORIDAZINE (Unverified Allergy, Mild, HIVES, 04/06/15) PENICILLIN (Unverified Allergy, Unknown, 06/15/15) PENICILLINS (Unverified Allergy, Unknown, 11/24/17) Objective Last 24 Hour Vital Signs Date Time Temp Pulse Resp B/P (MAP) Pulse Ox O2 Delivery O2 Flow Rate FiO2 01/12/19 12:00 97.5 93 18 111/60 (77) 94 01/12/19 09:00 Room Air Room Air 01/12/19 09:00 74 101/74 01/12/19 09:00 74 101/74 01/12/19 08:00 97.0 74 16 101/74 (83) 98 01/12/19 04:00 97.0 94 16 134/79 (97) 96 01/12/19 00:00 97.1 89 18 101/62 (75) 99 01/11/19 20:35 Room Air Room Air 01/11/19 20:23 95 138/72 01/11/19 20:00 97.6 70 20 130/66 (87) 97 Intake and Output 01/11/19 01/12/19 19:00 07:00 Intake Total 120 ml Balance 120 ml Intake Oral 120 ml # Voids 3 2 Objective General Appearance: WD/WN Lines, tubes and drains: peripheral HEENT: normocephalic, atraumatic Neck: non-tender, supple Respiratory/Chest: chest wall non-tender, lungs clear Breasts: no masses Cardiovascular/Chest: normal rate, no JVD Abdomen: normal bowel sounds Genitourinary/Rectal: normal genital exam, heme negative stool Extremities: normal range of motion, non-tender Skin Exam: normal pigmentation Neurologic: motor operator II-XII 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 Laboratory Tests 01/12/19 05:10: White Blood Count 12.3H, Red Blood Count 4.48L, Hemoglobin 12.5L, Hematocrit 39.6L, Mean Corpuscular Volume 89, Mean Corpuscular Hemoglobin 27.9, Mean Corpuscular Hemoglobin Concent 31.5L, Red Cell Distribution Width 14.2, Platelet Count 323, Mean Platelet Volume 8.7, Neutrophils (%) (Auto) 70.7, Lymphocytes (%) (Auto) 15.6L, Monocytes (%) (Auto) 9.8, Eosinophils (%) (Auto) 2.6, Basophils (%) (Auto) 1.3, Sodium Level 141, Potassium Level 4.6, Chloride Level 105, Carbon Dioxide Level 26, Anion Gap 10, Blood Urea Nitrogen 59H, Creatinine 1.5H, Estimat Glomerular Filtration Rate 56.7, Glucose Level 100, Calcium Level 11.5H, Total Bilirubin 0.3, Direct Bilirubin < 0.1, Aspartate Amino Transf (AST/SGOT) 93H, Alanine Aminotransferase (ALT/SGPT) 52, Alkaline Phosphatase 174H, Total Protein 10.2H, Albumin 2.6L Current Medications Medications (Trade) Dose Ordered Sig/Taco Route PRN Reason Start Time Stop Time Status Last Admin Dose Admin Acetaminophen (Tylenol) 650 mg Q4H PRN ORAL fever 12/26/18 19:30 01/25/19 19:29 Amlodipine Besylate (Norvasc) 10 mg DAILY ORAL 12/27/18 09:00 01/26/19 08:59 01/11/19 09:09 Benztropine Mesylate (Cogentin) 1 mg THREE TIMES A DAY ORAL 12/27/18 18:00 01/26/19 17:59 01/12/19 12:39 Clonidine HCl (Catapres Tab) 0.1 mg Q6H PRN ORAL For High Blood Pressure 12/26/18 20:00 01/25/19 19:59 Clopidogrel Bisulfate (Plavix) 75 mg DAILY ORAL 12/27/18 09:00 01/26/19 08:59 01/12/19 09:32 Dextrose (Dextrose 50%) 25 ml Q30M PRN IV Hypoglycemia 12/26/18 19:45 01/25/19 19:33 Dextrose (Dextrose 50%) 50 ml Q30M PRN IV hypoglycemia 12/26/18 19:45 01/25/19 19:44 Divalproex Sodium (Depakote) 250 mg Q12HR ORAL 12/26/18 21:00 01/25/19 20:59 01/12/19 09:32 Gabapentin (Neurontin) 300 mg THREE TIMES A DAY ORAL 12/27/18 09:00 01/26/19 08:59 01/12/19 12:39 Haloperidol (Haldol) 5 mg TID ORAL 12/27/18 18:00 01/26/19 17:59 01/12/19 12:39 Heparin Sodium (Porcine) (Heparin 5000 units/ml) 5,000 units EVERY 12 HOURS SUBQ 12/26/18 21:00 01/25/19 20:59 01/12/19 09:41 Insulin Aspart (NovoLOG) BEFORE MEALS AND HS SUBQ 12/26/18 21:00 01/25/19 20:59 01/12/19 12:44 Magnesium Hydroxide (Mom) 30 ml DAILYPRN PRN ORAL Constipation 12/26/18 20:00 01/25/19 19:59 01/07/19 13:30 Metoprolol Tartrate (Lopressor) 25 mg Q12HR ORAL 01/10/19 21:00 02/09/19 20:59 01/11/19 20:23 Nitroglycerin (Ntg) 0.4 mg Q5M PRN SL Prn Chest Pain 12/26/18 19:30 01/25/19 19:29 01/01/19 15:18 Ondansetron HCl (Zofran) 4 mg Q6H PRN IVP Nausea & Vomiting 12/26/18 19:30 01/25/19 19:29 12/29/18 09:04 Pantoprazole (Protonix) 40 mg DAILY ORAL 12/27/18 09:00 01/26/19 08:59 01/12/19 09:31 Paroxetine HCl (Paxil) 30 mg DAILY ORAL 12/27/18 09:00 01/26/19 08:59 01/12/19 09:31 Polyethylene Glycol (Miralax) 17 gm DAILYPRN PRN ORAL Constipation 12/26/18 20:00 01/25/19 19:29 Quetiapine Fumarate (SEROquel) 100 mg THREE TIMES A DAY ORAL 12/27/18 09:00 01/26/19 08:59 01/12/19 12:39 Sodium Chloride 1,000 ml @ 75 mls/hr [id number] IV 01/10/19 17:00 02/09/19 16:59 01/12/19 09:34 Tamsulosin HCl (Flomax) 0.4 mg BEDTIME ORAL 12/26/18 21:00 01/25/19 20:59 01/11/19 20:23 Trazodone HCl (Desyrel) 100 mg BEDTIME ORAL 12/26/18 21:00 01/25/19 20:59 01/11/19 20:21 Vanesa Skinner MD Jan 12, 2019 16:42
--- NOTE | 2019-01-12 18:15 | Progress Note ---
DATE: 01/11/2019 NOTE: POOR AUDIO PSYCHOTHERAPY CONSULTATION PROGRESS NOTE CONSULTING PHYSICIAN: Irvin Zheng PsyD. TREATING ATTENDING PHYSICIAN: Jarek Gonzalez D.O. The patient is a 68-year-old male patient with diagnosis of schizoaffective disorder, bipolar type. The patient is depressed and helpless. He has been confused, tired, resting. Denies suicidal or homicidal thoughts of ideation. Denies any auditory or visual hallucinations. He continues to be very cooperative with this clinician. Alert and oriented to person and place. Mood is dysphoric. Affect is congruent. Thought process, disorganized. Thought content, confused. He has poor attention concentration. Poor insight and judgment and impulse control. I ASSESSED THIS PATIENT, PROVIDED THE PATIENT WITH: 1. Reality orientation improving the cognitive function of the patient who is confused and disorganized. Oriented to person, place, time, and situation. 2. Provide the patient with supportive psychotherapy. Provide the patient with emotional outlet and means to cope with emotional distress. 3. Provided the patient with cognitive behavioral therapy, which can help with a range of problems that involve patterns of thinking . addressing feelings of helplessness and hopelessness, supporting with positive thinking strategies, positive coping skills including positive medication compliance positive coping skills to . Psychotherapy provided to this patient 20 minutes. Irvin Zheng PsyD. DR: LASHANDA JOB#: [id number] CC:
--- NOTE | 2019-01-12 18:45 | Progress Note ---
DATE: 01/12/2019 NOTE: "POOR AUDIO QUALITY" SUBJECTIVE: This is a 68-year-old male patient with left ankle ulcer and cellulitis. The patient is confused, disorganized, mood labile . MENTAL STATUS EXAMINATION: This is a 68-year-old male. Appearance is disheveled. Attitude, irritable and agitated. Affect, guarded and restricted. Intellect poor. Mood, depressed and anxious. Motor activity, psychomotor agitation. Attention span is poor. Orientation x2. Speech is pressured. Thought process, disorganized and illogical. Insight and judgment is poor. DIAGNOSIS: Schizoaffective, bipolar type. PLAN: Treat him with Depakote 250 twice a day or q.12 hours, trazodone at bedtime, Paxil 30 mg daily, Neurontin 3 times a day, and also treat with Seroquel 100 mg three times a day with Haldol 5 mg two times a day . Provided him with 20 minutes of cognitive behavioral therapy to help him identify his automatic negative thoughts and help him to convert those negative thoughts to more positive thoughts to reduce depression, anxiety, and suicidality. Twenty minutes of cognitive behavioral therapy provided. Chart was reviewed. Discussed with staff. The patient was seen and assessed at bedside. Uziel Collado M.D. DR: Brittany JOB#: [id number] CC:
--- NOTE | 2019-01-12 19:25 | NUR ---
HAND-OFF: Report given to Afua.
[2019-01-12 20:00] VITALS: BP 113/57
--- NOTE | 2019-01-12 20:00 | NUR ---
NURSE NOTES: Received patient in bed, alseep. On RA, no SOB, no acute distress, no c/o pain. Wound dressing dry intact on L foot. Bed in lowest position, locked, alarms on. Call light in reach. No IV access, MD aware, will try to insert one later.
[2019-01-12] MEDS: TraZODone 100mg tab ORAL SCH (20:42)
[2019-01-12] MEDS: Tamsulosin 0.4mg cap ORAL SCH (20:42)
--- NOTE | 2019-01-12 22:45 | NUR ---
HAND-OFF: Report given to Yuli ESPINOZA.
[2019-01-13] VITALS: BP 101/53
[2019-01-13 03:57] VITALS: BP 106/59
--- NOTE | 2019-01-13 04:15 | Progress Note ---
DATE: 01/11/2019 NOTE: POOR AUDIO PSYCHOTHERAPY CONSULTATION PROGRESS NOTE TREATING ATTENDING PHYSICIAN: Jarek Gonzalez D.O. SUBJECTIVE: This patient is a male patient. He is 68 years old, diagnosed as schizoaffective disorder, bipolar type. This patient has been very helpless, hopeless, depressed, and confused. He is very cooperative with the clinician. He has been communicative and able to articulate his thoughts and needs; however, he feels in the hospital setting. He states that he feels weak, he has been tired and fatigued and sleeping mostly. Alert and oriented to person and place. Mood is dysphoric. Affect is congruent. Thought process, disorganized. Poor attention and concentration. Poor insight, judgment, and impulse control. I ASSESSED THIS PATIENT. PROVIDED THE PATIENT WITH: 1. Reality orientation, cognitive functioning of the patient who is confused and disoriented. Oriented to person, place, time, and situation. 2. Provide the patient with supportive psychotherapy, which provides the patient with emotional outlet and means to cope with emotional distress, and the patient's thoughts and feelings of helplessness, anxiety, and depression, and provide the patient with cognitive behavioral therapy, which consists with a range of problems that may involve patterns of being acting that are problematic. Discussing the patient's feelings of anxiety and restlessness coping skills positive self-talking and engaging in positive interactions positive communication skills, working on increasing and providing him with psychoeducation and his mental health symptoms and addressing his feelings of depression and identifying positive the patient's recent depressive symptoms. Plan is to maintain medication compliance with the progression of reality of thoughts, for positive coping skills, and stabilizing the thoughts and behavior. Psychotherapy provided to this patient, 20 minutes. Irvin Zheng PsyD. DR: Ashlie JOB#: [id number] CC:
[2019-01-13] MEDS: NovoLOG Insulin Flexpen SUBQ SCH ×4 (05:33→20:23)
[2019-01-13 06:43] LABS: BASOPHILS % (AUTO) 0.9 % (0.0-2.0); EOSINOPHILS % (AUTO) 3.4 % (0.0-3.0); HEMATOCRIT 36.5 % (42.0-52.0); HEMOGLOBIN 11.6 G/DL (14.2-18.0); LYMPHOCYTES % (AUTO) 24.2 % (20.0-45.0); MEAN CORPUSCULAR VOLUME 88 FL (80-99); MONOCYTES % (AUTO) 12.1 % (1.0-10.0); NEUTROPHILS % (AUTO) 59.4 % (45.0-75.0); PLATELET COUNT 338 K/UL (150-450); RED BLOOD COUNT 4.12 M/UL (4.70-6.10); RED CELL DISTRIBUTION WIDTH 14.5 % (11.6-14.8); WHITE BLOOD COUNT 9.7 K/UL (4.8-10.8)
--- NOTE | 2019-01-13 07:10 | NUR ---
HAND-OFF: Report given to OLGA Rey.
[2019-01-13 07:13] LABS: ALANINE AMINOTRANSFERASE 44 U/L (12-78); ALBUMIN 2.3 G/DL (3.4-5.0); ALBUMIN/GLOBULIN RATIO 0.3 (1.0-2.7); ALKALINE PHOSPHATASE 160 U/L (46-116); ANION GAP 9 mmol/L (5-15); ASPARTATE AMINO TRANSFERASE 64 U/L (15-37); BILIRUBIN,TOTAL 0.3 MG/DL (0.2-1.0); BLOOD UREA NITROGEN 60 mg/dL (7-18); CALCIUM 10.4 MG/DL (8.5-10.1); CARBON DIOXIDE 26 MMOL/L (21-32); CHLORIDE 105 MMOL/L (98-107); CREATININE 1.4 MG/DL (0.55-1.30); POTASSIUM 4.5 MMOL/L (3.5-5.1); SODIUM 140 MMOL/L (136-145)
[2019-01-13 08:00] VITALS: BP 106/56
--- NOTE | 2019-01-13 08:28 | NUR ---
NURSE NOTES: Patient is alert and oriented to name. Patient is lying in bed. Side rails are up x2, bed is locked and in lowest position. No reports of discomfort at the moment. Will continue to monitor.
--- NOTE | 2019-01-13 08:32 | General Progress Note ---
Assessment/Plan Problem List: (1) History of CVA (cerebrovascular accident) ICD Codes: Z86.73 - Personal history of transient ischemic attack (TIA), and cerebral infarction without residual deficits SNOMED: 827483858 (2) Cellulitis ICD Codes: L03.90 - Cellulitis, unspecified SNOMED: 315738194 (3) Anemia ICD Codes: D64.9 - Anemia SNOMED: 682265115 (4) Diabetes ICD Codes: E11.9 - Diabetes SNOMED: 03573754 (5) Hypertension ICD Codes: I10 - Hypertension SNOMED: 52212890 (6) Failure to thrive in adult ICD Codes: R62.7 - Adult failure to thrive SNOMED: 286168776 (7) Ulcer of left ankle ICD Codes: L97.329 - Non-pressure chronic ulcer of left ankle with unspecified severity SNOMED: 564536550, 37123046 Qualifiers: Qualified Codes: L97.322 - Non-pressure chronic ulcer of left ankle with fat layer exposed Status: unchanged Assessment/Plan wound care abx pain control cbc bmp am dc plan Subjective Constitutional: Reports: weakness Allergies: Coded Allergies: THIORIDAZINE (Unverified Allergy, Mild, HIVES, 04/06/15) PENICILLIN (Unverified Allergy, Unknown, 06/15/15) PENICILLINS (Unverified Allergy, Unknown, 11/24/17) All Systems: reviewed and negative except above Subjective sl foot pain Objective Last 24 Hour Vital Signs Date Time Temp Pulse Resp B/P (MAP) Pulse Ox O2 Delivery O2 Flow Rate FiO2 01/13/19 03:57 97.5 87 18 106/59 (75) 95 01/13/19 00:00 97.3 95 16 101/53 (69) 96 01/12/19 21:00 Room Air Room Air 01/12/19 20:41 110 113/57 01/12/19 20:00 97.7 110 18 113/57 (75) 96 01/12/19 16:00 97.2 106 17 117/65 (82) 98 01/12/19 12:00 97.5 93 18 111/60 (77) 94 01/12/19 09:00 Room Air Room Air 01/12/19 09:00 74 101/74 01/12/19 09:00 74 101/74 Intake and Output 01/12/19 01/13/19 19:00 07:00 Intake Total 240 ml 800 ml Output Total 300 ml Balance -60 ml 800 ml Intake Oral 240 ml 200 ml IV Total 600 ml Output Urine Total 300 ml # Voids 1 Laboratory Tests 01/13/19 04:50: White Blood Count 9.7, Red Blood Count 4.12L, Hemoglobin 11.6L, Hematocrit 36.5L , Mean Corpuscular Volume 88, Mean Corpuscular Hemoglobin 28.1, Mean Corpuscular Hemoglobin Concent 31.8L, Red Cell Distribution Width 14.5, Platelet Count 338, Mean Platelet Volume 8.8, Neutrophils (%) (Auto) 59.4, Lymphocytes (%) (Auto) 24.2, Monocytes (%) (Auto) 12.1H, Eosinophils (%) (Auto) 3.4H, Basophils (%) (Auto) 0.9, Sodium Level 140, Potassium Level 4.5, Chloride Level 105, Carbon Dioxide Level 26, Anion Gap 9, Blood Urea Nitrogen 60H, Creatinine 1.4H, Estimat Glomerular Filtration Rate > 60, Glucose Level 97, Calcium Level 10.4H, Total Bilirubin 0.3, Aspartate Amino Transf (AST/SGOT) 64H , Alanine Aminotransferase (ALT/SGPT) 44, Alkaline Phosphatase 160H, Total Protein 9.3H, Albumin 2.3L, Globulin 7.0, Albumin/Globulin Ratio 0.3L Height (Feet): 5 Height (Inches): 10.00 Weight (Pounds): 134 General Appearance: lethargic EENT: normal ENT inspection Neck: normal alignment Cardiovascular: normal peripheral pulses, normal rate, regular rhythm Respiratory/Chest: chest wall non-tender, lungs clear, normal breath sounds Abdomen: normal bowel sounds, non tender, soft Extremities: normal inspection Edema: no edema noted Arm (L), no edema noted Arm (R), no edema noted Leg (L), no edema noted Leg (R), no edema noted Pedal (L), no edema noted Pedal (R), no edema noted Generalized Neurologic: motor weakness Skin: normal pigmentation, warm/dry Objective foot dressing c&d Jarek Gonzalez DO Jan 13, 2019 08:32
[2019-01-13] MEDS: Metoprolol 25mg tab ORAL SCH ×2 (09:00→20:15)
[2019-01-13] MEDS: Heparin 5000 units/ml inj SUBQ SCH ×2 (09:34→20:16)
[2019-01-13] MEDS: Benztropine 1mg tab ORAL SCH ×3 (09:34→17:52)
[2019-01-13] MEDS: PARoxetine 10mg tab ORAL SCH (09:34)
[2019-01-13 12:00] VITALS: BP 106/63
--- NOTE | 2019-01-13 15:45 | NUR ---
NURSE NOTES: Dressing changed on left ankle. Patient tolerated. Will continue to monitor.
[2019-01-13 16:00] VITALS: BP 124/77
--- NOTE | 2019-01-13 17:01 | Pulmonology Progress Note ---
Assessment/Plan Problems: (1) Cellulitis (2) Severe anemia (3) Hypertension (4) UTI (urinary tract infection) (5) Schizoaffective disorder (6) Diabetes (7) History of CVA (cerebrovascular accident) Assessment/Plan all reviewed doing better, no new complains in better spirit wound care check cultures symptomatic treatment respiratory treatment dvt prophylaxis. dc planning in progress Subjective Allergies: Coded Allergies: THIORIDAZINE (Unverified Allergy, Mild, HIVES, 04/06/15) PENICILLIN (Unverified Allergy, Unknown, 06/15/15) PENICILLINS (Unverified Allergy, Unknown, 11/24/17) Objective Last 24 Hour Vital Signs Date Time Temp Pulse Resp B/P (MAP) Pulse Ox O2 Delivery O2 Flow Rate FiO2 01/13/19 16:00 97.7 101 18 124/77 (93) 95 01/13/19 12:00 97.2 82 20 106/63 (77) 100 82 01/13/19 09:00 92 106/56 01/13/19 09:00 92 106/56 01/13/19 08:15 Room Air Room Air 01/13/19 08:00 97.2 92 22 106/56 (73) 99 01/13/19 03:57 97.5 87 18 106/59 (75) 95 01/13/19 00:00 97.3 95 16 101/53 (69) 96 01/12/19 21:00 Room Air Room Air 01/12/19 20:41 110 113/57 01/12/19 20:00 97.7 110 18 113/57 (75) 96 Intake and Output 01/12/19 01/13/19 19:00 07:00 Intake Total 240 ml 800 ml Output Total 300 ml Balance -60 ml 800 ml Intake Oral 240 ml 200 ml IV Total 600 ml Output Urine Total 300 ml # Voids 1 Objective General Appearance: WD/WN Lines, tubes and drains: peripheral HEENT: normocephalic, atraumatic Neck: non-tender, supple Respiratory/Chest: chest wall non-tender, lungs clear Breasts: no masses Cardiovascular/Chest: normal rate, no JVD Abdomen: normal bowel sounds Genitourinary/Rectal: normal genital exam, heme negative stool Extremities: normal range of motion, non-tender Skin Exam: normal pigmentation 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 Laboratory Tests 01/13/19 04:50: White Blood Count 9.7, Red Blood Count 4.12L, Hemoglobin 11.6L, Hematocrit 36.5L , Mean Corpuscular Volume 88, Mean Corpuscular Hemoglobin 28.1, Mean Corpuscular Hemoglobin Concent 31.8L, Red Cell Distribution Width 14.5, Platelet Count 338, Mean Platelet Volume 8.8, Neutrophils (%) (Auto) 59.4, Lymphocytes (%) (Auto) 24.2, Monocytes (%) (Auto) 12.1H, Eosinophils (%) (Auto) 3.4H, Basophils (%) (Auto) 0.9, Sodium Level 140, Potassium Level 4.5, Chloride Level 105, Carbon Dioxide Level 26, Anion Gap 9, Blood Urea Nitrogen 60H, Creatinine 1.4H, Estimat Glomerular Filtration Rate > 60, Glucose Level 97, Calcium Level 10.4H, Total Bilirubin 0.3, Aspartate Amino Transf (AST/SGOT) 64H , Alanine Aminotransferase (ALT/SGPT) 44, Alkaline Phosphatase 160H, Total Protein 9.3H, Albumin 2.3L, Globulin 7.0, Albumin/Globulin Ratio 0.3L Current Medications Medications (Trade) Dose Ordered Sig/Taco Route PRN Reason Start Time Stop Time Status Last Admin Dose Admin Acetaminophen (Tylenol) 650 mg Q4H PRN ORAL fever 12/26/18 19:30 01/25/19 19:29 Amlodipine Besylate (Norvasc) 10 mg DAILY ORAL 12/27/18 09:00 01/26/19 08:59 01/11/19 09:09 Benztropine Mesylate (Cogentin) 1 mg THREE TIMES A DAY ORAL 12/27/18 18:00 01/26/19 17:59 01/13/19 13:01 Clonidine HCl (Catapres Tab) 0.1 mg Q6H PRN ORAL For High Blood Pressure 12/26/18 20:00 01/25/19 19:59 Clopidogrel Bisulfate (Plavix) 75 mg DAILY ORAL 12/27/18 09:00 01/26/19 08:59 01/13/19 09:34 Dextrose (Dextrose 50%) 25 ml Q30M PRN IV Hypoglycemia 12/26/18 19:45 01/25/19 19:33 Dextrose (Dextrose 50%) 50 ml Q30M PRN IV hypoglycemia 12/26/18 19:45 01/25/19 19:44 Divalproex Sodium (Depakote) 250 mg Q12HR ORAL 12/26/18 21:00 01/25/19 20:59 01/13/19 09:34 Gabapentin (Neurontin) 300 mg THREE TIMES A DAY ORAL 12/27/18 09:00 01/26/19 08:59 01/13/19 13:01 Haloperidol (Haldol) 5 mg TID ORAL 12/27/18 18:00 01/26/19 17:59 01/13/19 13:01 Heparin Sodium (Porcine) (Heparin 5000 units/ml) 5,000 units EVERY 12 HOURS SUBQ 12/26/18 21:00 01/25/19 20:59 01/13/19 09:34 Insulin Aspart (NovoLOG) BEFORE MEALS AND HS SUBQ 12/26/18 21:00 01/25/19 20:59 01/12/19 17:22 Magnesium Hydroxide (Mom) 30 ml DAILYPRN PRN ORAL Constipation 12/26/18 20:00 01/25/19 19:59 01/07/19 13:30 Metoprolol Tartrate (Lopressor) 25 mg Q12HR ORAL 01/10/19 21:00 02/09/19 20:59 01/12/19 20:41 Nitroglycerin (Ntg) 0.4 mg Q5M PRN SL Prn Chest Pain 12/26/18 19:30 01/25/19 19:29 01/01/19 15:18 Ondansetron HCl (Zofran) 4 mg Q6H PRN IVP Nausea & Vomiting 12/26/18 19:30 01/25/19 19:29 12/29/18 09:04 Pantoprazole (Protonix) 40 mg DAILY ORAL 12/27/18 09:00 01/26/19 08:59 01/13/19 09:34 Paroxetine HCl (Paxil) 30 mg DAILY ORAL 12/27/18 09:00 01/26/19 08:59 01/13/19 09:34 Polyethylene Glycol (Miralax) 17 gm DAILYPRN PRN ORAL Constipation 12/26/18 20:00 01/25/19 19:29 Quetiapine Fumarate (SEROquel) 100 mg THREE TIMES A DAY ORAL 12/27/18 09:00 01/26/19 08:59 01/13/19 13:00 Sodium Chloride 1,000 ml @ 75 mls/hr [id number] IV 01/10/19 17:00 02/09/19 16:59 01/13/19 13:01 Tamsulosin HCl (Flomax) 0.4 mg BEDTIME ORAL 12/26/18 21:00 01/25/19 20:59 01/12/19 20:42 Trazodone HCl (Desyrel) 100 mg BEDTIME ORAL 12/26/18 21:00 01/25/19 20:59 01/12/19 20:42 Vanesa Skinner MD Jan 13, 2019 17:01
--- NOTE | 2019-01-13 17:30 | Progress Note ---
DATE: 01/13/2019 SUBJECTIVE: The patient is a 68-year-old male patient. He continues to have some mood lability secondary to ankle ulcer and cellulitis, extreme mood lability, confusion, and disorganized thought process. MENTAL STATUS EXAMINATION: This patient is a 68-year-old male. Appearance is disheveled. Attitude, irritable and agitated. Affect, guarded and restricted. Intellect poor. Mood depressed and anxious. Motor activity, psychomotor agitation. Attention span is poor. Orientation x2. Speech is pressured. Thought process, disorganized and illogical. Insight and judgment are poor. DIAGNOSIS: Schizoaffective, bipolar type. PLAN: Continue Depakote 250 mg twice a day or q.12 h., Seroquel 100 mg three times a day, Haldol 5 mg two times a day with , Paxil 30 mg daily, and Neurontin three times a day. Provided him with 20 minutes of cognitive behavioral therapy to help him identify his automatic negative thoughts, and help him to convert those negative thoughts to more positive thoughts to reduce depression, anxiety, and mood lability. Chart reviewed. Discussed with staff. Provided him with 20 minutes of cognitive behavioral therapy to help him identify his automatic negative thoughts, and help him to convert those negative thoughts to more positive thoughts to reduce depression, anxiety, and mood lability. Uziel Collado M.D. DR: MIKAEL JOB#: [id number] CC:
--- NOTE | 2019-01-13 17:58 | NUR ---
NURSE NOTES: Richlog safia. Patient refusing to eat.
--- NOTE | 2019-01-13 19:24 | NUR ---
HAND-OFF: Report given to OLGA Ford.
--- NOTE | 2019-01-13 19:39 | NUR ---
NURSE NOTES: Received patient in bed, alseep. On RA, no SOB, no acute distress, no c/o pain. Wound dressing dry intact on L foot. Bed in lowest position, locked, alarms on. Call light in reach.
[2019-01-13 20:00] VITALS: BP 135/82
[2019-01-13] MEDS: Tamsulosin 0.4mg cap ORAL SCH (20:15)
[2019-01-13] MEDS: TraZODone 100mg tab ORAL SCH (20:15)
[2019-01-13 23:51] LABS: APPEARANCE,URINE CLEAR; BILIRUBIN, URINE NEGATIVE (NEGATIVE); COLOR,URINE PALE YELLOW; GLUCOSE, URINE (UA) NEGATIVE (NEGATIVE); KETONES,URINE NEGATIVE (NEGATIVE); LEUKOCYTE ESTERASE ,URINE NEGATIVE (NEGATIVE); NITRITE,URINE NEGATIVE (NEGATIVE); PH,URINE 5 (4.5-8.0); PROTEIN,URINE NEGATIVE (NEGATIVE); UROBILINOGEN,URINE NORMAL MG/DL (0.0-1.0)
[2019-01-14] VITALS: BP 133/84
[2019-01-14 04:00] VITALS: BP 125/80
[2019-01-14] MEDS: NovoLOG Insulin Flexpen SUBQ SCH ×4 (05:31→21:54)
[2019-01-14 07:35] LABS: BASOPHILS % (AUTO) 1.2 % (0.0-2.0); EOSINOPHILS % (AUTO) 2.5 % (0.0-3.0); HEMATOCRIT 36.8 % (42.0-52.0); HEMOGLOBIN 11.6 G/DL (14.2-18.0); LYMPHOCYTES % (AUTO) 20.8 % (20.0-45.0); MEAN CORPUSCULAR VOLUME 90 FL (80-99); MONOCYTES % (AUTO) 11.9 % (1.0-10.0); NEUTROPHILS % (AUTO) 63.6 % (45.0-75.0); PLATELET COUNT 304 K/UL (150-450); RED CELL DISTRIBUTION WIDTH 14.4 % (11.6-14.8)
[2019-01-14 07:38] LABS: ANION GAP 9 mmol/L (5-15); BLOOD UREA NITROGEN 40 mg/dL (7-18); CARBON DIOXIDE 28 MMOL/L (21-32); CHLORIDE 104 MMOL/L (98-107); CREATININE 1.2 MG/DL (0.55-1.30); POTASSIUM 5.4 MMOL/L (3.5-5.1); SODIUM 141 MMOL/L (136-145)
--- NOTE | 2019-01-14 07:39 | NUR ---
HAND-OFF: Report given to OLGA Rey.
[2019-01-14 08:00] VITALS: BP 137/74
--- NOTE | 2019-01-14 08:04 | NUR ---
NURSE NOTES: Patient is awake and alert. Patient assisted with breakfast. Patient is on room air. No s/s of discomfort. Bed is locked and in lowest position. Bed alarm is on. Will continue to monitor.
--- NOTE | 2019-01-14 08:31 | NUR ---
NURSE NOTES: Potassium this AM 5.4 Dr. Lee notified. New orders received.
[2019-01-14] MEDS: D5 1/2NS 1,000 ML IV SCH ×2 (09:06→17:53)
[2019-01-14] MEDS: PARoxetine 10mg tab ORAL SCH (09:07)
[2019-01-14] MEDS: Benztropine 1mg tab ORAL SCH ×3 (09:07→17:55)
[2019-01-14] MEDS: Metoprolol 25mg tab ORAL SCH ×2 (09:08→21:53)
[2019-01-14] MEDS: Heparin 5000 units/ml inj SUBQ SCH ×2 (09:09→21:54)
--- NOTE | 2019-01-14 10:52 | NUR ---
NURSE NOTES: Post Void Residual 214ml. Will continue to monitor.
[2019-01-14 12:00] VITALS: BP 126/77
--- NOTE | 2019-01-14 12:25 | Nephrology Progress Note ---
Assessment/Plan Assessment 1. Hyperkalemia. resolved 2. Acute renal failure improving 3. Hypercalcemia. 4.PVD 5.HTN Plan Romero continue ivf give lasix once check post voiding low K diet monitoring urine out avoid NSAID check post voiding Subjective Constitutional: Reports: no symptoms HEENT: Reports: no symptoms Genitourinary: Reports: no symptoms Neurologic/Psychiatric: Reports: no symptoms Subjective continue to be confused Objective Objective Last 24 Hour Vital Signs Date Time Temp Pulse Resp B/P (MAP) Pulse Ox O2 Delivery O2 Flow Rate FiO2 01/14/19 12:00 97.9 90 17 126/77 (93) 98 01/14/19 09:08 101 137/74 01/14/19 09:08 101 137/74 01/14/19 08:30 Room Air Room Air 01/14/19 08:00 97.5 101 17 137/74 (95) 96 01/14/19 04:00 97.4 80 17 125/80 (95) 97 01/14/19 00:00 97.7 85 18 133/84 (100) 98 01/13/19 22:32 Room Air Room Air 01/13/19 20:15 101 124/77 01/13/19 20:00 97.9 100 18 135/82 (99) 97 01/13/19 16:00 97.7 101 18 124/77 (93) 95 Intake and Output 01/13/19 01/14/19 19:00 07:00 Intake Total 795 ml 1000 ml Output Total 675 ml Balance 795 ml 325 ml Intake Oral 720 ml 250 ml IV Total 75 ml 750 ml Output Urine Total 675 ml # Voids 3 # Bowel Movements 1 Laboratory Tests 01/13/19 22:25: Urine Color Pale yellow, Urine Appearance Clear, Urine pH 5, Urine Specific [place] 1.015, Urine Protein Negative, Urine Glucose (UA) Negative, Urine Ketones Negative, Urine Blood Negative, Urine Nitrite Negative, Urine Bilirubin Negative, Urine Urobilinogen Normal, Urine Leukocyte Esterase Negative 01/14/19 05:40: White Blood Count 9.0, Red Blood Count 4.10L, Hemoglobin 11.6L, Hematocrit 36.8L , Mean Corpuscular Volume 90, Mean Corpuscular Hemoglobin 28.3, Mean Corpuscular Hemoglobin Concent 31.5L, Red Cell Distribution Width 14.4, Platelet Count 304, Mean Platelet Volume 8.3, Neutrophils (%) (Auto) 63.6, Lymphocytes (%) (Auto) 20.8, Monocytes (%) (Auto) 11.9H, Eosinophils (%) (Auto) 2.5, Basophils (%) (Auto) 1.2, Sodium Level 141, Potassium Level 5.4H, Chloride Level 104, Carbon Dioxide Level 28, Anion Gap 9, Blood Urea Nitrogen 40H, Creatinine 1.2, Estimat Glomerular Filtration Rate > 60, Glucose Level 98, Calcium Level 11.0H Height (Feet): 5 Height (Inches): 10.00 Weight (Pounds): 134 Objective GENERAL: The patient is a chronically ill-looking male. VITAL SIGNS: Temperature of 98 degrees, blood pressure 137/76, pulse rate of 82, respiratory rate of 18. HEAD AND NECK: Bitemporal wasting. Dry mucous membranes. Extraocular movements intact. Pupils are reactive to light and accommodation. LUNGS: Clear to auscultation. CARDIAC: Regular rate and rhythm. S1, S2 normal. No murmurs or rubs. ABDOMEN: Soft, nontender, nondistended. EXTREMITIES: Trace edema. Left lower extremity ulceration and dressing. Ximena Lee MD Jan 14, 2019 12:25
--- NOTE | 2019-01-14 13:08 | Pulmonology Progress Note ---
Assessment/Plan Problems: (1) Cellulitis (2) Severe anemia (3) Hypertension (4) UTI (urinary tract infection) (5) Schizoaffective disorder (6) Diabetes (7) History of CVA (cerebrovascular accident) Assessment/Plan all reviewed doing better, no new complains in better spirit wound care check cultures symptomatic treatment respiratory treatment dvt prophylaxis. dc planning in progress Subjective ROS Limited/Unobtainable: No Allergies: Coded Allergies: THIORIDAZINE (Unverified Allergy, Mild, HIVES, 04/06/15) PENICILLIN (Unverified Allergy, Unknown, 06/15/15) PENICILLINS (Unverified Allergy, Unknown, 11/24/17) Objective Last 24 Hour Vital Signs Date Time Temp Pulse Resp B/P (MAP) Pulse Ox O2 Delivery O2 Flow Rate FiO2 01/14/19 12:00 97.9 90 17 126/77 (93) 98 01/14/19 09:08 101 137/74 01/14/19 09:08 101 137/74 01/14/19 08:30 Room Air Room Air 01/14/19 08:00 97.5 101 17 137/74 (95) 96 01/14/19 04:00 97.4 80 17 125/80 (95) 97 01/14/19 00:00 97.7 85 18 133/84 (100) 98 01/13/19 22:32 Room Air Room Air 01/13/19 20:15 101 124/77 01/13/19 20:00 97.9 100 18 135/82 (99) 97 01/13/19 16:00 97.7 101 18 124/77 (93) 95 Intake and Output 01/13/19 01/14/19 19:00 07:00 Intake Total 795 ml 1000 ml Output Total 675 ml Balance 795 ml 325 ml Intake Oral 720 ml 250 ml IV Total 75 ml 750 ml Output Urine Total 675 ml # Voids 3 # Bowel Movements 1 Objective General Appearance: WD/WN Lines, tubes and drains: peripheral HEENT: normocephalic, atraumatic Neck: non-tender, supple Respiratory/Chest: chest wall non-tender, lungs clear Breasts: no masses Cardiovascular/Chest: normal rate, no JVD Abdomen: normal bowel sounds Genitourinary/Rectal: normal genital exam, heme negative stool Extremities: normal range of motion, non-tender Skin Exam: normal pigmentation 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 Laboratory Tests 01/13/19 22:25: Urine Color Pale yellow, Urine Appearance Clear, Urine pH 5, Urine Specific [place] 1.015, Urine Protein Negative, Urine Glucose (UA) Negative, Urine Ketones Negative, Urine Blood Negative, Urine Nitrite Negative, Urine Bilirubin Negative, Urine Urobilinogen Normal, Urine Leukocyte Esterase Negative 01/14/19 05:40: White Blood Count 9.0, Red Blood Count 4.10L, Hemoglobin 11.6L, Hematocrit 36.8L , Mean Corpuscular Volume 90, Mean Corpuscular Hemoglobin 28.3, Mean Corpuscular Hemoglobin Concent 31.5L, Red Cell Distribution Width 14.4, Platelet Count 304, Mean Platelet Volume 8.3, Neutrophils (%) (Auto) 63.6, Lymphocytes (%) (Auto) 20.8, Monocytes (%) (Auto) 11.9H, Eosinophils (%) (Auto) 2.5, Basophils (%) (Auto) 1.2, Sodium Level 141, Potassium Level 5.4H, Chloride Level 104, Carbon Dioxide Level 28, Anion Gap 9, Blood Urea Nitrogen 40H, Creatinine 1.2, Estimat Glomerular Filtration Rate > 60, Glucose Level 98, Calcium Level 11.0H Current Medications Medications (Trade) Dose Ordered Sig/Taco Route PRN Reason Start Time Stop Time Status Last Admin Dose Admin Acetaminophen (Tylenol) 650 mg Q4H PRN ORAL fever 12/26/18 19:30 01/25/19 19:29 Amlodipine Besylate (Norvasc) 10 mg DAILY ORAL 12/27/18 09:00 01/26/19 08:59 01/14/19 09:08 Benztropine Mesylate (Cogentin) 1 mg THREE TIMES A DAY ORAL 12/27/18 18:00 01/26/19 17:59 01/14/19 12:17 Clonidine HCl (Catapres Tab) 0.1 mg Q6H PRN ORAL For High Blood Pressure 12/26/18 20:00 01/25/19 19:59 Clopidogrel Bisulfate (Plavix) 75 mg DAILY ORAL 12/27/18 09:00 01/26/19 08:59 01/14/19 09:08 Dextrose (Dextrose 50%) 25 ml Q30M PRN IV Hypoglycemia 12/26/18 19:45 01/25/19 19:33 Dextrose (Dextrose 50%) 50 ml Q30M PRN IV hypoglycemia 12/26/18 19:45 01/25/19 19:44 Dextrose/Sodium Chloride 1,000 ml @ 100 mls/hr Q10H IV 01/14/19 08:30 02/13/19 08:29 01/14/19 09:06 Divalproex Sodium (Depakote) 250 mg Q12HR ORAL 12/26/18 21:00 01/25/19 20:59 01/14/19 09:07 Gabapentin (Neurontin) 300 mg THREE TIMES A DAY ORAL 12/27/18 09:00 01/26/19 08:59 01/14/19 12:17 Haloperidol (Haldol) 5 mg TID ORAL 12/27/18 18:00 01/26/19 17:59 01/14/19 12:16 Heparin Sodium (Porcine) (Heparin 5000 units/ml) 5,000 units EVERY 12 HOURS SUBQ 12/26/18 21:00 01/25/19 20:59 01/14/19 09:09 Insulin Aspart (NovoLOG) BEFORE MEALS AND HS SUBQ 12/26/18 21:00 01/25/19 20:59 01/14/19 12:19 Magnesium Hydroxide (Mom) 30 ml DAILYPRN PRN ORAL Constipation 12/26/18 20:00 01/25/19 19:59 01/07/19 13:30 Metoprolol Tartrate (Lopressor) 25 mg Q12HR ORAL 01/10/19 21:00 02/09/19 20:59 01/14/19 09:08 Nitroglycerin (Ntg) 0.4 mg Q5M PRN SL Prn Chest Pain 12/26/18 19:30 01/25/19 19:29 01/01/19 15:18 Ondansetron HCl (Zofran) 4 mg Q6H PRN IVP Nausea & Vomiting 12/26/18 19:30 01/25/19 19:29 12/29/18 09:04 Pantoprazole (Protonix) 40 mg DAILY ORAL 12/27/18 09:00 01/26/19 08:59 01/14/19 09:07 Paroxetine HCl (Paxil) 30 mg DAILY ORAL 12/27/18 09:00 01/26/19 08:59 01/14/19 09:07 Polyethylene Glycol (Miralax) 17 gm DAILYPRN PRN ORAL Constipation 12/26/18 20:00 01/25/19 19:29 Quetiapine Fumarate (SEROquel) 100 mg THREE TIMES A DAY ORAL 12/27/18 09:00 01/26/19 08:59 01/14/19 12:17 Tamsulosin HCl (Flomax) 0.4 mg BEDTIME ORAL 12/26/18 21:00 01/25/19 20:59 01/13/19 20:15 Trazodone HCl (Desyrel) 100 mg BEDTIME ORAL 12/26/18 21:00 01/25/19 20:59 01/13/19 20:15 Vanesa Skinner MD Jan 14, 2019 13:08
--- NOTE | 2019-01-14 14:29 | General Progress Note ---
Assessment/Plan Problem List: (1) History of CVA (cerebrovascular accident) ICD Codes: Z86.73 - Personal history of transient ischemic attack (TIA), and cerebral infarction without residual deficits SNOMED: 226661915 (2) Cellulitis ICD Codes: L03.90 - Cellulitis, unspecified SNOMED: 005592715 (3) Anemia ICD Codes: D64.9 - Anemia SNOMED: 439175653 (4) Diabetes ICD Codes: E11.9 - Diabetes SNOMED: 17371218 (5) Hypertension ICD Codes: I10 - Hypertension SNOMED: 45780224 (6) Failure to thrive in adult ICD Codes: R62.7 - Adult failure to thrive SNOMED: 231013231 (7) Ulcer of left ankle ICD Codes: L97.329 - Non-pressure chronic ulcer of left ankle with unspecified severity SNOMED: 855403951, 02747826 Qualifiers: Qualified Codes: L97.322 - Non-pressure chronic ulcer of left ankle with fat layer exposed Status: stable, progressing Assessment/Plan wound care abx pain control cbc bmp am dc plan Subjective Constitutional: Reports: weakness Allergies: Coded Allergies: THIORIDAZINE (Unverified Allergy, Mild, HIVES, 04/06/15) PENICILLIN (Unverified Allergy, Unknown, 06/15/15) PENICILLINS (Unverified Allergy, Unknown, 11/24/17) All Systems: reviewed and negative except above Subjective sl foot pain Objective Last 24 Hour Vital Signs Date Time Temp Pulse Resp B/P (MAP) Pulse Ox O2 Delivery O2 Flow Rate FiO2 01/14/19 12:00 97.9 90 17 126/77 (93) 98 01/14/19 09:08 101 137/74 01/14/19 09:08 101 137/74 01/14/19 08:30 Room Air Room Air 01/14/19 08:00 97.5 101 17 137/74 (95) 96 01/14/19 04:00 97.4 80 17 125/80 (95) 97 01/14/19 00:00 97.7 85 18 133/84 (100) 98 01/13/19 22:32 Room Air Room Air 01/13/19 20:15 101 124/77 01/13/19 20:00 97.9 100 18 135/82 (99) 97 01/13/19 16:00 97.7 101 18 124/77 (93) 95 Intake and Output 01/13/19 01/14/19 19:00 07:00 Intake Total 795 ml 1000 ml Output Total 675 ml Balance 795 ml 325 ml Intake Oral 720 ml 250 ml IV Total 75 ml 750 ml Output Urine Total 675 ml # Voids 3 # Bowel Movements 1 Laboratory Tests 01/13/19 22:25: Urine Color Pale yellow, Urine Appearance Clear, Urine pH 5, Urine Specific [place] 1.015, Urine Protein Negative, Urine Glucose (UA) Negative, Urine Ketones Negative, Urine Blood Negative, Urine Nitrite Negative, Urine Bilirubin Negative, Urine Urobilinogen Normal, Urine Leukocyte Esterase Negative 01/14/19 05:40: White Blood Count 9.0, Red Blood Count 4.10L, Hemoglobin 11.6L, Hematocrit 36.8L , Mean Corpuscular Volume 90, Mean Corpuscular Hemoglobin 28.3, Mean Corpuscular Hemoglobin Concent 31.5L, Red Cell Distribution Width 14.4, Platelet Count 304, Mean Platelet Volume 8.3, Neutrophils (%) (Auto) 63.6, Lymphocytes (%) (Auto) 20.8, Monocytes (%) (Auto) 11.9H, Eosinophils (%) (Auto) 2.5, Basophils (%) (Auto) 1.2, Sodium Level 141, Potassium Level 5.4H, Chloride Level 104, Carbon Dioxide Level 28, Anion Gap 9, Blood Urea Nitrogen 40H, Creatinine 1.2, Estimat Glomerular Filtration Rate > 60, Glucose Level 98, Calcium Level 11.0H Height (Feet): 5 Height (Inches): 10.00 Weight (Pounds): 134 General Appearance: lethargic EENT: normal ENT inspection Neck: normal alignment Cardiovascular: normal peripheral pulses, normal rate, regular rhythm Respiratory/Chest: chest wall non-tender, lungs clear, normal breath sounds Abdomen: normal bowel sounds, non tender, soft Extremities: normal inspection Edema: no edema noted Arm (L), no edema noted Arm (R), no edema noted Leg (L), no edema noted Leg (R), no edema noted Pedal (L), no edema noted Pedal (R), no edema noted Generalized Neurologic: motor weakness Skin: normal pigmentation, warm/dry Objective foot dressing c&Jarek Kovacs 18, 2019 14:29
--- NOTE | 2019-01-14 15:34 | NUR ---
[employer] SI: LEFT ANKLE ULCER . CELLULITIS VS:BP 138/77, P 101, T 97.5, RR 16, SpO2 95 RBC 4.10, Hgb 11.0, Hct 36.8, K 5.4, BUN 40, Ca 11.0 IS: D5 NS x1L HALDOL 5mg COGENTIN 1mg NORVASC 10mg PLAVIX 75mg GABAPENTIN 300mg PROTONIX 40mg PAXIL 30mgSEROQUEL 100mg SEROQUEL 100mg DEPAKOTE 250mg HEPARIN SUBQ NOVOLOG SUBQ FLOMAX 0.4mg MED/SURG STATUS
--- NOTE | 2019-01-14 15:45 | Progress Note ---
DATE: 01/14/2019 SUBJECTIVE: This is a 68-year-old male patient with left ankle ulcer, but he continues to have lot of depression, confusion, mood lability, worsened by stress of his medical illness. That is why, his attending has requested daily psychiatric consultation. MENTAL STATUS EXAMINATION: This is a 68-year-old male. Appearance is disheveled. Attitude, irritable and agitated. Affect, guarded and restricted. Intellect poor. Mood depressed and anxious. Motor activity, psychomotor agitation. Attention span is poor. Orientation x2. Speech is pressured. Thought process, disorganized and illogical. Insight and judgment is poor. DIAGNOSIS: Schizoaffective, bipolar type. PLAN: Haldol 5 mg 3 times a day, Seroquel 100 mg 3 times a day, Depakote 250 mg q.12 hours, Paxil 30 mg a day, Neurontin 300 mg 3 times a day, and trazodone at bedtime. Provide him with 20 minutes of cognitive behavioral therapy. Continues to have mood lability. 20 minutes of cognitive behavioral therapy to help him identify his automatic negative thoughts help him convert those negative thoughts to more positive thoughts to reduce depression, anxiety, and suicidality. Chart reviewed. Discussed with staff. 20 minutes of cognitive behavioral therapy provided to help him have more adaptive behavior pattern, to reduce depression, anxiety, suicidality, to help him identify his automatic negative thoughts and help him to convert those to more positive thought process. Seen and assessed in his room. Uziel Collado M.D. DR: GIOVANNA JOB#: [id number] CC:
--- NOTE | 2019-01-14 15:50 | Infectious Diseases Prog Note ---
Assessment/Plan Assessment/Plan Assessment: L ankle ulcer- mild gavin wound cellulitis;ulcer itself not infected Wnd : Morg. M , [facility], [facility]or S [facility]( colonizers ) -Xray ankle: No definite acute bony process. Possible lateral soft tissue irregularity-correlate with clinical findings -Bcx neg Afebrile Mild leukocytosis; recurrent, resolved -01/12 u/a neg CXR: 1. A triangular opacity overlies the lateral aspect of the right lower lung. This may represent overlapping soft tissue however cannot exclude underlying airspace disease/pneumonia. Recommend correlation with a lateral view. Mildly increased interstitial markings. This is nonspecific but may suggest mild bronchitis or interstitial pneumonitis. DM2 HTN COPD SNF resident Plan: -Continue to monitor off abx as he is clinically stable -01/03 SP Doxycycline #7 IV Vancomycin #3 12/28 -s/p IV Vancomycin x1 12/26 -Monitor CBC/CMP, temperatures -wound care per surgical team. Subjective Allergies: Coded Allergies: THIORIDAZINE (Unverified Allergy, Mild, HIVES, 04/06/15) PENICILLIN (Unverified Allergy, Unknown, 06/15/15) PENICILLINS (Unverified Allergy, Unknown, 11/24/17) Subjective afebrile mild leukocytosis resolved off abx Objective Vital Signs Last 24 Hour Vital Signs Date Time Temp Pulse Resp B/P (MAP) Pulse Ox O2 Delivery O2 Flow Rate FiO2 01/14/19 12:00 97.9 90 17 126/77 (93) 98 01/14/19 09:08 101 137/74 01/14/19 09:08 101 137/74 01/14/19 08:30 Room Air Room Air 01/14/19 08:00 97.5 101 17 137/74 (95) 96 01/14/19 04:00 97.4 80 17 125/80 (95) 97 01/14/19 00:00 97.7 85 18 133/84 (100) 98 01/13/19 22:32 Room Air Room Air 01/13/19 20:15 101 124/77 01/13/19 20:00 97.9 100 18 135/82 (99) 97 01/13/19 16:00 97.7 101 18 124/77 (93) 95 Height (Feet): 5 Height (Inches): 10.00 Weight (Pounds): 134 Objective General Appearance: no apparent distress, alert, non-toxic HEENT: normocephalic, atraumatic bilateral eye PERRL, normal pharynx Neck: full range of motion, supple/symm/no masses Respiratory: chest non-tender, lungs clear, normal breath sounds, speaking full sentences Cardiovascular : regular rate, rhythm, no edema Gastrointestinal: normal bowel sounds, non tender, soft, non-distended, no guarding, no rebound Genitourinary: normal inspection, no CVA tenderness Musculoskeletal: back normal, gait/station normal, normal range of motion, non- tender Neurologic: alert, oriented x3, responsive, motor strength/tone normal, sensory intact, speech normal Psychiatric: judgement/insight normal, memory normal, mood/affect normal, no suicidal/homicidal ideation Skin: other - large ulcer to L ankle. surrounding erythema/induration Laboratory Tests Test 01/13/19 22:25 01/14/19 05:40 Urine Color Pale yellow Urine Appearance Clear Urine pH 5 (4.5-8.0) Urine Specific [place] 1.015 (1.005-1.035) Urine Protein Negative (NEGATIVE) Urine Glucose (UA) Negative (NEGATIVE) Urine Ketones Negative (NEGATIVE) Urine Blood Negative (NEGATIVE) Urine Nitrite Negative (NEGATIVE) Urine Bilirubin Negative (NEGATIVE) Urine Urobilinogen Normal MG/DL (0.0-1.0) Urine Leukocyte Esterase Negative (NEGATIVE) White Blood Count 9.0 K/UL (4.8-10.8) Red Blood Count 4.10 M/UL (4.70-6.10) L Hemoglobin 11.6 G/DL (14.2-18.0) L Hematocrit 36.8 % (42.0-52.0) L Mean Corpuscular Volume 90 FL (80-99) Mean Corpuscular Hemoglobin 28.3 PG (27.0-31.0) Mean Corpuscular Hemoglobin Concent 31.5 G/DL (32.0-36.0) L Red Cell Distribution Width 14.4 % (11.6-14.8) Platelet Count 304 K/UL (150-450) Mean Platelet Volume 8.3 FL (6.5-10.1) Neutrophils (%) (Auto) 63.6 % (45.0-75.0) Lymphocytes (%) (Auto) 20.8 % (20.0-45.0) Monocytes (%) (Auto) 11.9 % (1.0-10.0) H Eosinophils (%) (Auto) 2.5 % (0.0-3.0) Basophils (%) (Auto) 1.2 % (0.0-2.0) Sodium Level 141 MMOL/L (136-145) Potassium Level 5.4 MMOL/L (3.5-5.1) H Chloride Level 104 MMOL/L (98-107) Carbon Dioxide Level 28 MMOL/L (21-32) Anion Gap 9 mmol/L (5-15) Blood Urea Nitrogen 40 mg/dL (7-18) H Creatinine 1.2 MG/DL (0.55-1.30) Estimat Glomerular Filtration Rate > 60 mL/min (>60) Glucose Level 98 MG/DL (74-106) Calcium Level 11.0 MG/DL (8.5-10.1) H Current Medications Medications (Trade) Dose Ordered Sig/Taco Route PRN Reason Start Time Stop Time Status Last Admin Dose Admin Acetaminophen (Tylenol) 650 mg Q4H PRN ORAL fever 12/26/18 19:30 01/25/19 19:29 Amlodipine Besylate (Norvasc) 10 mg DAILY ORAL 12/27/18 09:00 01/26/19 08:59 01/14/19 09:08 Benztropine Mesylate (Cogentin) 1 mg THREE TIMES A DAY ORAL 12/27/18 18:00 01/26/19 17:59 01/14/19 12:17 Clonidine HCl (Catapres Tab) 0.1 mg Q6H PRN ORAL For High Blood Pressure 12/26/18 20:00 01/25/19 19:59 Clopidogrel Bisulfate (Plavix) 75 mg DAILY ORAL 12/27/18 09:00 01/26/19 08:59 01/14/19 09:08 Dextrose (Dextrose 50%) 25 ml Q30M PRN IV Hypoglycemia 12/26/18 19:45 01/25/19 19:33 Dextrose (Dextrose 50%) 50 ml Q30M PRN IV hypoglycemia 12/26/18 19:45 01/25/19 19:44 Dextrose/Sodium Chloride 1,000 ml @ 100 mls/hr Q10H IV 01/14/19 08:30 4/17/19 08:29 01/14/19 09:06 Divalproex Sodium (Depakote) 250 mg Q12HR ORAL 12/26/18 21:00 01/25/19 20:59 01/14/19 09:07 Gabapentin (Neurontin) 300 mg THREE TIMES A DAY ORAL 12/27/18 09:00 01/26/19 08:59 01/14/19 12:17 Haloperidol (Haldol) 5 mg TID ORAL 12/27/18 18:00 01/26/19 17:59 01/14/19 12:16 Heparin Sodium (Porcine) (Heparin 5000 units/ml) 5,000 units EVERY 12 HOURS SUBQ 12/26/18 21:00 01/25/19 20:59 01/14/19 09:09 Insulin Aspart (NovoLOG) BEFORE MEALS AND HS SUBQ 12/26/18 21:00 01/25/19 20:59 01/14/19 12:19 Magnesium Hydroxide (Mom) 30 ml DAILYPRN PRN ORAL Constipation 12/26/18 20:00 01/25/19 19:59 01/07/19 13:30 Metoprolol Tartrate (Lopressor) 25 mg Q12HR ORAL 01/10/19 21:00 02/09/19 20:59 01/14/19 09:08 Nitroglycerin (Ntg) 0.4 mg Q5M PRN SL Prn Chest Pain 12/26/18 19:30 01/25/19 19:29 01/01/19 15:18 Ondansetron HCl (Zofran) 4 mg Q6H PRN IVP Nausea & Vomiting 12/26/18 19:30 01/25/19 19:29 12/29/18 09:04 Pantoprazole (Protonix) 40 mg DAILY ORAL 12/27/18 09:00 01/26/19 08:59 01/14/19 09:07 Paroxetine HCl (Paxil) 30 mg DAILY ORAL 12/27/18 09:00 01/26/19 08:59 01/14/19 09:07 Polyethylene Glycol (Miralax) 17 gm DAILYPRN PRN ORAL Constipation 12/26/18 20:00 01/25/19 19:29 Quetiapine Fumarate (SEROquel) 100 mg THREE TIMES A DAY ORAL 12/27/18 09:00 01/26/19 08:59 01/14/19 12:17 Tamsulosin HCl (Flomax) 0.4 mg BEDTIME ORAL 12/26/18 21:00 01/25/19 20:59 01/13/19 20:15 Trazodone HCl (Desyrel) 100 mg BEDTIME ORAL 12/26/18 21:00 01/25/19 20:59 01/13/19 20:15 Mireya Campos M.D. Jan 14, 2019 15:50
[2019-01-14 16:00] VITALS: BP 120/74
--- NOTE | 2019-01-14 16:13 | NUR ---
NURSE NOTES: Dressing on left ankle changed. Patient tolerated. Will continue to monitor.
--- NOTE | 2019-01-14 17:56 | NUR ---
NURSE NOTES: PO medications held, patient too drowsy.
--- NOTE | 2019-01-14 19:22 | NUR ---
HAND-OFF: Report given to OLGA Nicholas.
[2019-01-14 20:00] VITALS: BP 138/77
[2019-01-14] MEDS: TraZODone 100mg tab ORAL SCH (21:00)
[2019-01-14] MEDS: Tamsulosin 0.4mg cap ORAL SCH (21:53)
--- NOTE | 2019-01-14 22:21 | NUR ---
NURSE NOTES: Patient in bed, awake, confused. Able to make simple needs known. Resistive to care, passive. Call light is at bedside. Dressing noted on lower extremity. Abdomen is soft and non distended. Respiration is even and unlabored. No complaint of pain or discomfort noted. Condom catheter noted. Bed in low and locked position. provided safe environment. Will continue plan of care.
[2019-01-15] VITALS (7 sets, daily range): BP systolic 109–152; BP diastolic 65–78
[2019-01-15] MEDS: D5 1/2NS 1,000 ML IV SCH ×2 (04:33→15:18)
[2019-01-15] MEDS: NovoLOG Insulin Flexpen SUBQ SCH ×4 (05:47→21:00)
[2019-01-15 06:53] LABS: BASOPHILS % (AUTO) 1.7 % (0.0-2.0); HEMATOCRIT 35.1 % (42.0-52.0); LYMPHOCYTES % (AUTO) 18.3 % (20.0-45.0); MEAN CORPUSCULAR VOLUME 89 FL (80-99); MONOCYTES % (AUTO) 13.1 % (1.0-10.0); NEUTROPHILS % (AUTO) 63.9 % (45.0-75.0); PLATELET COUNT 309 K/UL (150-450); RED BLOOD COUNT 3.94 M/UL (4.70-6.10); RED CELL DISTRIBUTION WIDTH 14.4 % (11.6-14.8); WHITE BLOOD COUNT 9.4 K/UL (4.8-10.8)
[2019-01-15 07:04] LABS: ANION GAP 7 mmol/L (5-15); BLOOD UREA NITROGEN 29 mg/dL (7-18); CALCIUM 10.6 MG/DL (8.5-10.1); CARBON DIOXIDE 30 MMOL/L (21-32); CHLORIDE 102 MMOL/L (98-107); CREATININE 1.1 MG/DL (0.55-1.30); POTASSIUM 4.7 MMOL/L (3.5-5.1); SODIUM 139 MMOL/L (136-145)
--- NOTE | 2019-01-15 07:07 | NUR ---
HAND-OFF: Report given to OLGA Vasquez.
--- NOTE | 2019-01-15 07:30 | NUR ---
NURSE NOTES: Received patient in bed,awake, verbally responsive but sleepy @ this time. Not in respiratory/cardiac distress noted. No s/s of pain or discomfort. Bed is in lowest position and locked. Call light and personnel items within reach. on IVF. Wound dressing intact.Will continue plan of care.
[2019-01-15] MEDS: Metoprolol 25mg tab ORAL SCH ×2 (08:55→21:11)
--- NOTE | 2019-01-15 09:00 | NUR ---
NURSE NOTES: IV is occluded. Reinserted IV on right forearm with G22. No s/s of infection on IV removal site on left arm.
[2019-01-15] MEDS: Benztropine 1mg tab ORAL SCH ×3 (09:01→17:10)
[2019-01-15] MEDS: PARoxetine 10mg tab ORAL SCH (09:01)
[2019-01-15] MEDS: Heparin 5000 units/ml inj SUBQ SCH ×2 (09:02→21:00)
--- NOTE | 2019-01-15 11:35 | NUR ---
PT NOTE: Pt refused PT interventions this am.
--- NOTE | 2019-01-15 12:05 | Surgery Progress Note ---
Surgery Progress Note Subjective Additional Comments no acute events. seemingly comfortable. labs improved. exam unchanged. Objective Last 24 Hour Vital Signs Date Time Temp Pulse Resp B/P (MAP) Pulse Ox O2 Delivery O2 Flow Rate FiO2 01/15/19 09:00 Room Air Room Air 01/15/19 08:56 87 115/68 01/15/19 08:55 87 115/68 01/15/19 08:00 97.1 87 18 115/68 (84) 95 01/15/19 04:00 98.6 90 18 129/72 (91) 95 01/15/19 00:00 97.8 96 16 135/78 (97) 97 01/14/19 21:53 98 138/77 01/14/19 21:00 Room Air Room Air 01/14/19 20:00 98.3 98 16 138/77 (97) 95 01/14/19 16:00 97.9 96 18 120/74 (89) 98 I&O Intake and Output 01/14/19 01/15/19 19:00 07:00 Intake Total 1200 ml 1600 ml Output Total 1500 ml Balance 1200 ml 100 ml Intake Oral 1100 ml 500 ml IV Total 100 ml 1100 ml Output Urine Total 1500 ml # Voids 2 # Bowel Movements 1 Dressing: saturated Wound: other Drains: other Cardiovascular: RSR Respiratory: clear Abdomen: soft, non-tender, non-distended Extremities: tenderness, cyanosis Laboratory Tests Test 01/15/19 06:00 White Blood Count 9.4 K/UL (4.8-10.8) Red Blood Count 3.94 M/UL (4.70-6.10) L Hemoglobin 11.0 G/DL (14.2-18.0) L Hematocrit 35.1 % (42.0-52.0) L Mean Corpuscular Volume 89 FL (80-99) Mean Corpuscular Hemoglobin 28.0 PG (27.0-31.0) Mean Corpuscular Hemoglobin Concent 31.4 G/DL (32.0-36.0) L Red Cell Distribution Width 14.4 % (11.6-14.8) Platelet Count 309 K/UL (150-450) Mean Platelet Volume 8.7 FL (6.5-10.1) Neutrophils (%) (Auto) 63.9 % (45.0-75.0) Lymphocytes (%) (Auto) 18.3 % (20.0-45.0) L Monocytes (%) (Auto) 13.1 % (1.0-10.0) H Eosinophils (%) (Auto) 3.0 % (0.0-3.0) Basophils (%) (Auto) 1.7 % (0.0-2.0) Sodium Level 139 MMOL/L (136-145) Potassium Level 4.7 MMOL/L (3.5-5.1) Chloride Level 102 MMOL/L (98-107) Carbon Dioxide Level 30 MMOL/L (21-32) Anion Gap 7 mmol/L (5-15) Blood Urea Nitrogen 29 mg/dL (7-18) H Creatinine 1.1 MG/DL (0.55-1.30) Estimat Glomerular Filtration Rate > 60 mL/min (>60) Glucose Level 104 MG/DL (74-106) Calcium Level 10.6 MG/DL (8.5-10.1) H Plan Problems: (1) Ulcer of left ankle Assessment & Plan: large chronic left ankle ulceration near circumferential on left ankle. full thickness with eschar on some areas and some areas of granulation tissue. no drainage. no fluctuance. tender, periwound okay. pulses diminished. calf okay. foot with decreased cap refill. please see photos Plain films noted venous duplex without dvt and patent. labs noted long discussion about wound and leg with patient. states he has no intention of having debridement, grafting, or amputation at anytime. will now allow wound to be cleaned properly. will only allow for dressing to be changed. spoke with patient and he still very firm with his decision. -wash left ankle daily with NS. apply xeroform to wound, ABD, and wrap with kerlix -okay to d/c from surgical standpoint -outpatient wound care follow up thank you will follow with recs. (2) Failure to thrive in adult Assessment & Plan: DAILY ESTIMATED NEEDS: Needs based on wounds, DM 70.5kg 25-35 kcals/kg 9298-0593 total kcals 1.25-1.5 g protein/kg 88-106 g total protein 25-30 mL/kg 8735-2955 total fluid mLs NUTRITION DIAGNOSIS: 1) Increased protein needs r/t wound healing as evidenced by pt with L-ankle full thickness ulcer 2) Altered nutrition related lab values r/t renal dysfunction pending workup as evidenced by elev K (6.0-> 5.6), elev BUN (66, trending up), elev Creat (1.6). CURRENT DIET: CCHO MED PO DIET RECOMMENDATIONS: RENAL DIET + DOUBLE PROTIONS + NEPRO 1 TETRA ABRAM DAILY ADDITIONAL RECOMMENDATIONS: 1) calibrated bed scale wts (Per SNF: 155#) 2) WOUND CARE: add YUNI BID + VIT C 500mg BID + MVI x1 3) Monitor po intake -> pt on multiple psych meds, may alter appetite -> Varibale intake, rec Glucerna daily 4) Add HS snack to prevent hypoglycemia in the AM. 5) REC DIET CHANGE TO RENAL / SOFT EASY CHEW + NEPRO Devon Sullivan Jan 15, 2019 12:04
--- NOTE | 2019-01-15 12:29 | Pulmonology Progress Note ---
Assessment/Plan Problems: (1) Cellulitis (2) Severe anemia (3) Hypertension (4) UTI (urinary tract infection) (5) Schizoaffective disorder (6) Diabetes (7) History of CVA (cerebrovascular accident) Assessment/Plan all reviewed doing better, no new complains in better spirit wound care check cultures symptomatic treatment respiratory treatment dvt prophylaxis. dc planning in progress Subjective ROS Limited/Unobtainable: No Constitutional: Reports: no symptoms HEENT: Repors: no symptoms Respiratory: Reports: no symptoms Allergies: Coded Allergies: THIORIDAZINE (Unverified Allergy, Mild, HIVES, 04/06/15) PENICILLIN (Unverified Allergy, Unknown, 06/15/15) PENICILLINS (Unverified Allergy, Unknown, 11/24/17) Objective Last 24 Hour Vital Signs Date Time Temp Pulse Resp B/P (MAP) Pulse Ox O2 Delivery O2 Flow Rate FiO2 01/15/19 09:00 Room Air Room Air 01/15/19 08:56 87 115/68 01/15/19 08:55 87 115/68 01/15/19 08:00 97.1 87 18 115/68 (84) 95 01/15/19 04:00 98.6 90 18 129/72 (91) 95 01/15/19 00:00 97.8 96 16 135/78 (97) 97 01/14/19 21:53 98 138/77 01/14/19 21:00 Room Air Room Air 01/14/19 20:00 98.3 98 16 138/77 (97) 95 01/14/19 16:00 97.9 96 18 120/74 (89) 98 Intake and Output 01/14/19 01/15/19 19:00 07:00 Intake Total 1200 ml 1600 ml Output Total 1500 ml Balance 1200 ml 100 ml Intake Oral 1100 ml 500 ml IV Total 100 ml 1100 ml Output Urine Total 1500 ml # Voids 2 # Bowel Movements 1 Objective General Appearance: WD/WN Lines, tubes and drains: peripheral HEENT: normocephalic, atraumatic Neck: non-tender, supple Respiratory/Chest: chest wall non-tender, lungs clear Breasts: no masses Cardiovascular/Chest: normal rate, no JVD Abdomen: normal bowel sounds Genitourinary/Rectal: normal genital exam, heme negative stool Extremities: normal range of motion, non-tender Skin Exam: normal pigmentation Neurologic: lead sprinkler II-XII 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 Laboratory Tests 01/15/19 06:00: White Blood Count 9.4, Red Blood Count 3.94L, Hemoglobin 11.0L, Hematocrit 35.1L , Mean Corpuscular Volume 89, Mean Corpuscular Hemoglobin 28.0, Mean Corpuscular Hemoglobin Concent 31.4L, Red Cell Distribution Width 14.4, Platelet Count 309, Mean Platelet Volume 8.7, Neutrophils (%) (Auto) 63.9, Lymphocytes (%) (Auto) 18.3L, Monocytes (%) (Auto) 13.1H, Eosinophils (%) (Auto ) 3.0, Basophils (%) (Auto) 1.7, Sodium Level 139, Potassium Level 4.7, Chloride Level 102, Carbon Dioxide Level 30, Anion Gap 7, Blood Urea Nitrogen 29H, Creatinine 1.1, Estimat Glomerular Filtration Rate > 60, Glucose Level 104 , Calcium Level 10.6H Current Medications Medications (Trade) Dose Ordered Sig/Taco Route PRN Reason Start Time Stop Time Status Last Admin Dose Admin Acetaminophen (Tylenol) 650 mg Q4H PRN ORAL fever 12/26/18 19:30 01/25/19 19:29 Amlodipine Besylate (Norvasc) 10 mg DAILY ORAL 12/27/18 09:00 01/26/19 08:59 01/14/19 09:08 Benztropine Mesylate (Cogentin) 1 mg THREE TIMES A DAY ORAL 12/27/18 18:00 01/26/19 17:59 01/15/19 09:01 Clonidine HCl (Catapres Tab) 0.1 mg Q6H PRN ORAL For High Blood Pressure 12/26/18 20:00 01/25/19 19:59 Clopidogrel Bisulfate (Plavix) 75 mg DAILY ORAL 12/27/18 09:00 01/26/19 08:59 01/15/19 09:02 Dextrose (Dextrose 50%) 25 ml Q30M PRN IV Hypoglycemia 12/26/18 19:45 01/25/19 19:33 Dextrose (Dextrose 50%) 50 ml Q30M PRN IV hypoglycemia 12/26/18 19:45 01/25/19 19:44 Dextrose/Sodium Chloride 1,000 ml @ 100 mls/hr Q10H IV 01/14/19 08:30 02/13/19 08:29 01/15/19 04:33 Divalproex Sodium (Depakote) 250 mg Q12HR ORAL 12/26/18 21:00 01/25/19 20:59 01/15/19 09:01 Gabapentin (Neurontin) 300 mg THREE TIMES A DAY ORAL 12/27/18 09:00 01/26/19 08:59 01/15/19 09:02 Haloperidol (Haldol) 5 mg TID ORAL 12/27/18 18:00 01/26/19 17:59 01/14/19 12:16 Heparin Sodium (Porcine) (Heparin 5000 units/ml) 5,000 units EVERY 12 HOURS SUBQ 12/26/18 21:00 01/25/19 20:59 01/15/19 09:02 Insulin Aspart (NovoLOG) BEFORE MEALS AND HS SUBQ 12/26/18 21:00 01/25/19 20:59 01/15/19 11:59 Magnesium Hydroxide (Mom) 30 ml DAILYPRN PRN ORAL Constipation 12/26/18 20:00 01/25/19 19:59 01/07/19 13:30 Metoprolol Tartrate (Lopressor) 25 mg Q12HR ORAL 01/10/19 21:00 02/09/19 20:59 01/14/19 21:53 Nitroglycerin (Ntg) 0.4 mg Q5M PRN SL Prn Chest Pain 12/26/18 19:30 01/25/19 19:29 01/01/19 15:18 Ondansetron HCl (Zofran) 4 mg Q6H PRN IVP Nausea & Vomiting 12/26/18 19:30 01/25/19 19:29 12/29/18 09:04 Pantoprazole (Protonix) 40 mg DAILY ORAL 12/27/18 09:00 01/26/19 08:59 01/15/19 09:02 Paroxetine HCl (Paxil) 30 mg DAILY ORAL 12/27/18 09:00 01/26/19 08:59 01/15/19 09:01 Polyethylene Glycol (Miralax) 17 gm DAILYPRN PRN ORAL Constipation 12/26/18 20:00 01/25/19 19:29 Quetiapine Fumarate (SEROquel) 100 mg THREE TIMES A DAY ORAL 12/27/18 09:00 01/26/19 08:59 01/15/19 09:02 Tamsulosin HCl (Flomax) 0.4 mg BEDTIME ORAL 12/26/18 21:00 01/25/19 20:59 01/14/19 21:53 Trazodone HCl (Desyrel) 100 mg BEDTIME ORAL 12/26/18 21:00 01/25/19 20:59 01/13/19 20:15 Vanesa Skinner MD Jan 15, 2019 12:29
--- NOTE | 2019-01-15 12:34 | Infectious Diseases Prog Note ---
Assessment/Plan Assessment/Plan Assessment: L ankle ulcer- mild gavin wound cellulitis;ulcer itself not infected Wnd : Morg. M , [facility], cantor S [facility]( colonizers ) -Xray ankle: No definite acute bony process. Possible lateral soft tissue irregularity-correlate with clinical findings -Bcx neg Afebrile Mild leukocytosis; recurrent, resolved -01/12 u/a neg CXR: 1. A triangular opacity overlies the lateral aspect of the right lower lung. This may represent overlapping soft tissue however cannot exclude underlying airspace disease/pneumonia. Recommend correlation with a lateral view. Mildly increased interstitial markings. This is nonspecific but may suggest mild bronchitis or interstitial pneumonitis. DM2 HTN COPD SNF resident Plan: -Continue to monitor off abx as he is clinically stable -01/03 SP Doxycycline #7 IV Vancomycin #3 12/28 -s/p IV Vancomycin x1 12/26 -Monitor CBC/CMP, temperatures -wound care per surgical team. Subjective Allergies: Coded Allergies: THIORIDAZINE (Unverified Allergy, Mild, HIVES, 04/06/15) PENICILLIN (Unverified Allergy, Unknown, 06/15/15) PENICILLINS (Unverified Allergy, Unknown, 11/24/17) Subjective afebrile mild leukocytosis resolved off abx Objective Vital Signs Last 24 Hour Vital Signs Date Time Temp Pulse Resp B/P (MAP) Pulse Ox O2 Delivery O2 Flow Rate FiO2 01/15/19 09:00 Room Air Room Air 01/15/19 08:56 87 115/68 01/15/19 08:55 87 115/68 01/15/19 08:00 97.1 87 18 115/68 (84) 95 01/15/19 04:00 98.6 90 18 129/72 (91) 95 01/15/19 00:00 97.8 96 16 135/78 (97) 97 01/14/19 21:53 98 138/77 01/14/19 21:00 Room Air Room Air 01/14/19 20:00 98.3 98 16 138/77 (97) 95 01/14/19 16:00 97.9 96 18 120/74 (89) 98 Height (Feet): 5 Height (Inches): 10.00 Weight (Pounds): 134 Objective General Appearance: no apparent distress, alert, non-toxic HEENT: normocephalic, atraumatic bilateral eye PERRL, normal pharynx Neck: full range of motion, supple/symm/no masses Respiratory: chest non-tender, lungs clear, normal breath sounds, speaking full sentences Cardiovascular : regular rate, rhythm, no edema Gastrointestinal: normal bowel sounds, non tender, soft, non-distended, no guarding, no rebound Genitourinary: normal inspection, no CVA tenderness Musculoskeletal: back normal, gait/station normal, normal range of motion, non- tender Neurologic: alert, oriented x3, responsive, motor strength/tone normal, sensory intact, speech normal Psychiatric: judgement/insight normal, memory normal, mood/affect normal, no suicidal/homicidal ideation Skin: other - large ulcer to L ankle. surrounding erythema/induration Laboratory Tests Test 01/15/19 06:00 White Blood Count 9.4 K/UL (4.8-10.8) Red Blood Count 3.94 M/UL (4.70-6.10) L Hemoglobin 11.0 G/DL (14.2-18.0) L Hematocrit 35.1 % (42.0-52.0) L Mean Corpuscular Volume 89 FL (80-99) Mean Corpuscular Hemoglobin 28.0 PG (27.0-31.0) Mean Corpuscular Hemoglobin Concent 31.4 G/DL (32.0-36.0) L Red Cell Distribution Width 14.4 % (11.6-14.8) Platelet Count 309 K/UL (150-450) Mean Platelet Volume 8.7 FL (6.5-10.1) Neutrophils (%) (Auto) 63.9 % (45.0-75.0) Lymphocytes (%) (Auto) 18.3 % (20.0-45.0) L Monocytes (%) (Auto) 13.1 % (1.0-10.0) H Eosinophils (%) (Auto) 3.0 % (0.0-3.0) Basophils (%) (Auto) 1.7 % (0.0-2.0) Sodium Level 139 MMOL/L (136-145) Potassium Level 4.7 MMOL/L (3.5-5.1) Chloride Level 102 MMOL/L (98-107) Carbon Dioxide Level 30 MMOL/L (21-32) Anion Gap 7 mmol/L (5-15) Blood Urea Nitrogen 29 mg/dL (7-18) H Creatinine 1.1 MG/DL (0.55-1.30) Estimat Glomerular Filtration Rate > 60 mL/min (>60) Glucose Level 104 MG/DL (74-106) Calcium Level 10.6 MG/DL (8.5-10.1) H Current Medications Medications (Trade) Dose Ordered Sig/Taco Route PRN Reason Start Time Stop Time Status Last Admin Dose Admin Acetaminophen (Tylenol) 650 mg Q4H PRN ORAL fever 12/26/18 19:30 01/25/19 19:29 Amlodipine Besylate (Norvasc) 10 mg DAILY ORAL 12/27/18 09:00 01/26/19 08:59 01/14/19 09:08 Benztropine Mesylate (Cogentin) 1 mg THREE TIMES A DAY ORAL 12/27/18 18:00 01/26/19 17:59 01/15/19 09:01 Clonidine HCl (Catapres Tab) 0.1 mg Q6H PRN ORAL For High Blood Pressure 12/26/18 20:00 01/25/19 19:59 Clopidogrel Bisulfate (Plavix) 75 mg DAILY ORAL 12/27/18 09:00 01/26/19 08:59 01/15/19 09:02 Dextrose (Dextrose 50%) 25 ml Q30M PRN IV Hypoglycemia 12/26/18 19:45 01/25/19 19:33 Dextrose (Dextrose 50%) 50 ml Q30M PRN IV hypoglycemia 12/26/18 19:45 01/25/19 19:44 Dextrose/Sodium Chloride 1,000 ml @ 100 mls/hr Q10H IV 01/14/19 08:30 02/13/19 08:29 01/15/19 04:33 Divalproex Sodium (Depakote) 250 mg Q12HR ORAL 12/26/18 21:00 01/25/19 20:59 01/15/19 09:01 Gabapentin (Neurontin) 300 mg THREE TIMES A DAY ORAL 12/27/18 09:00 01/26/19 08:59 01/15/19 09:02 Haloperidol (Haldol) 5 mg TID ORAL 12/27/18 18:00 01/26/19 17:59 01/14/19 12:16 Heparin Sodium (Porcine) (Heparin 5000 units/ml) 5,000 units EVERY 12 HOURS SUBQ 12/26/18 21:00 01/25/19 20:59 01/15/19 09:02 Insulin Aspart (NovoLOG) BEFORE MEALS AND HS SUBQ 12/26/18 21:00 01/25/19 20:59 01/15/19 11:59 Magnesium Hydroxide (Mom) 30 ml DAILYPRN PRN ORAL Constipation 12/26/18 20:00 01/25/19 19:59 01/07/19 13:30 Metoprolol Tartrate (Lopressor) 25 mg Q12HR ORAL 01/10/19 21:00 02/09/19 20:59 01/14/19 21:53 Nitroglycerin (Ntg) 0.4 mg Q5M PRN SL Prn Chest Pain 12/26/18 19:30 01/25/19 19:29 01/01/19 15:18 Ondansetron HCl (Zofran) 4 mg Q6H PRN IVP Nausea & Vomiting 12/26/18 19:30 01/25/19 19:29 12/29/18 09:04 Pantoprazole (Protonix) 40 mg DAILY ORAL 12/27/18 09:00 01/26/19 08:59 01/15/19 09:02 Paroxetine HCl (Paxil) 30 mg DAILY ORAL 12/27/18 09:00 01/26/19 08:59 01/15/19 09:01 Polyethylene Glycol (Miralax) 17 gm DAILYPRN PRN ORAL Constipation 12/26/18 20:00 01/25/19 19:29 Quetiapine Fumarate (SEROquel) 100 mg THREE TIMES A DAY ORAL 12/27/18 09:00 01/26/19 08:59 01/15/19 09:02 Tamsulosin HCl (Flomax) 0.4 mg BEDTIME ORAL 12/26/18 21:00 01/25/19 20:59 01/14/19 21:53 Trazodone HCl (Desyrel) 100 mg BEDTIME ORAL 12/26/18 21:00 01/25/19 20:59 01/13/19 20:15 Mireya Campos M.D. Jan 15, 2019 12:34
--- NOTE | 2019-01-15 13:00 | NUR ---
NURSE NOTES: PT refused to take 1:00pm medications. RN explained the risks and benefits.
--- NOTE | 2019-01-15 14:17 | General Progress Note ---
Assessment/Plan Problem List: (1) History of CVA (cerebrovascular accident) ICD Codes: Z86.73 - Personal history of transient ischemic attack (TIA), and cerebral infarction without residual deficits SNOMED: 971460394 (2) Cellulitis ICD Codes: L03.90 - Cellulitis, unspecified SNOMED: 232980775 (3) Anemia ICD Codes: D64.9 - Anemia SNOMED: 152003928 (4) Diabetes ICD Codes: E11.9 - Diabetes SNOMED: 87834612 (5) Hypertension ICD Codes: I10 - Hypertension SNOMED: 98090377 (6) Failure to thrive in adult ICD Codes: R62.7 - Adult failure to thrive SNOMED: 133996918 (7) Ulcer of left ankle ICD Codes: L97.329 - Non-pressure chronic ulcer of left ankle with unspecified severity SNOMED: 900867845, 33826729 Qualifiers: Qualified Codes: L97.322 - Non-pressure chronic ulcer of left ankle with fat layer exposed Status: unchanged Assessment/Plan wound care abx pain control cbc bmp am dc plan Subjective Constitutional: Reports: weakness Allergies: Coded Allergies: THIORIDAZINE (Unverified Allergy, Mild, HIVES, 04/06/15) PENICILLIN (Unverified Allergy, Unknown, 06/15/15) PENICILLINS (Unverified Allergy, Unknown, 11/24/17) All Systems: reviewed and negative except above Subjective sl foot pain Objective Last 24 Hour Vital Signs Date Time Temp Pulse Resp B/P (MAP) Pulse Ox O2 Delivery O2 Flow Rate FiO2 01/15/19 12:00 97.0 91 16 109/65 (80) 98 01/15/19 09:00 Room Air Room Air 01/15/19 08:56 87 115/68 01/15/19 08:55 87 115/68 01/15/19 08:00 97.1 87 18 115/68 (84) 95 01/15/19 04:00 98.6 90 18 129/72 (91) 95 01/15/19 00:00 97.8 96 16 135/78 (97) 97 01/14/19 21:53 98 138/77 01/14/19 21:00 Room Air Room Air 01/14/19 20:00 98.3 98 16 138/77 (97) 95 01/14/19 16:00 97.9 96 18 120/74 (89) 98 Intake and Output 01/14/19 01/15/19 19:00 07:00 Intake Total 1200 ml 1600 ml Output Total 1500 ml Balance 1200 ml 100 ml Intake Oral 1100 ml 500 ml IV Total 100 ml 1100 ml Output Urine Total 1500 ml # Voids 2 # Bowel Movements 1 Laboratory Tests 01/15/19 06:00: White Blood Count 9.4, Red Blood Count 3.94L, Hemoglobin 11.0L, Hematocrit 35.1L , Mean Corpuscular Volume 89, Mean Corpuscular Hemoglobin 28.0, Mean Corpuscular Hemoglobin Concent 31.4L, Red Cell Distribution Width 14.4, Platelet Count 309, Mean Platelet Volume 8.7, Neutrophils (%) (Auto) 63.9, Lymphocytes (%) (Auto) 18.3L, Monocytes (%) (Auto) 13.1H, Eosinophils (%) (Auto ) 3.0, Basophils (%) (Auto) 1.7, Sodium Level 139, Potassium Level 4.7, Chloride Level 102, Carbon Dioxide Level 30, Anion Gap 7, Blood Urea Nitrogen 29H, Creatinine 1.1, Estimat Glomerular Filtration Rate > 60, Glucose Level 104 , Calcium Level 10.6H Height (Feet): 5 Height (Inches): 10.00 Weight (Pounds): 134 General Appearance: lethargic EENT: normal ENT inspection Neck: normal alignment Cardiovascular: normal peripheral pulses, normal rate, regular rhythm Respiratory/Chest: chest wall non-tender, lungs clear, normal breath sounds Abdomen: normal bowel sounds, non tender, soft Extremities: normal inspection Edema: no edema noted Arm (L), no edema noted Arm (R), no edema noted Leg (L), no edema noted Leg (R), no edema noted Pedal (L), no edema noted Pedal (R), no edema noted Generalized Neurologic: motor weakness Skin: normal pigmentation, warm/dry Objective foot dressing c&d Jarek Gonzalez DO Jan 15, 2019 14:17
--- NOTE | 2019-01-15 14:41 | Nephrology Progress Note ---
Assessment/Plan Assessment 1. Hyperkalemia. resolved 2. Acute renal failure improving 3. Hypercalcemia. 4.PVD 5.HTN Plan Romero continue ivf give lasix once check post voiding low K diet monitoring urine out avoid NSAID check post voiding Subjective Subjective continue to be confused Objective Objective Last 24 Hour Vital Signs Date Time Temp Pulse Resp B/P (MAP) Pulse Ox O2 Delivery O2 Flow Rate FiO2 01/15/19 12:00 97.0 91 16 109/65 (80) 98 01/15/19 09:00 Room Air Room Air 01/15/19 08:56 87 115/68 01/15/19 08:55 87 115/68 01/15/19 08:00 97.1 87 18 115/68 (84) 95 01/15/19 04:00 98.6 90 18 129/72 (91) 95 01/15/19 00:00 97.8 96 16 135/78 (97) 97 01/14/19 21:53 98 138/77 01/14/19 21:00 Room Air Room Air 01/14/19 20:00 98.3 98 16 138/77 (97) 95 01/14/19 16:00 97.9 96 18 120/74 (89) 98 Intake and Output 01/14/19 01/15/19 19:00 07:00 Intake Total 1200 ml 1600 ml Output Total 1500 ml Balance 1200 ml 100 ml Intake Oral 1100 ml 500 ml IV Total 100 ml 1100 ml Output Urine Total 1500 ml # Voids 2 # Bowel Movements 1 Laboratory Tests 01/15/19 06:00: White Blood Count 9.4, Red Blood Count 3.94L, Hemoglobin 11.0L, Hematocrit 35.1L , Mean Corpuscular Volume 89, Mean Corpuscular Hemoglobin 28.0, Mean Corpuscular Hemoglobin Concent 31.4L, Red Cell Distribution Width 14.4, Platelet Count 309, Mean Platelet Volume 8.7, Neutrophils (%) (Auto) 63.9, Lymphocytes (%) (Auto) 18.3L, Monocytes (%) (Auto) 13.1H, Eosinophils (%) (Auto ) 3.0, Basophils (%) (Auto) 1.7, Sodium Level 139, Potassium Level 4.7, Chloride Level 102, Carbon Dioxide Level 30, Anion Gap 7, Blood Urea Nitrogen 29H, Creatinine 1.1, Estimat Glomerular Filtration Rate > 60, Glucose Level 104 , Calcium Level 10.6H Height (Feet): 5 Height (Inches): 10.00 Weight (Pounds): 134 Objective GENERAL: The patient is a chronically ill-looking male. VITAL SIGNS: Temperature of 98 degrees, blood pressure 137/76, pulse rate of 82, respiratory rate of 18. HEAD AND NECK: Bitemporal wasting. Dry mucous membranes. Extraocular movements intact. Pupils are reactive to light and accommodation. LUNGS: Clear to auscultation. CARDIAC: Regular rate and rhythm. S1, S2 normal. No murmurs or rubs. ABDOMEN: Soft, nontender, nondistended. EXTREMITIES: Trace edema. Left lower extremity ulceration and dressing. Ximena Lee MD Jan 15, 2019 14:41
--- NOTE | 2019-01-15 17:00 | NUR ---
NURSE NOTES: Rn offered dressing change but patient refused x3. RN explained the risks and benefits.Dressing clean and intact.
[2019-01-15] MEDS ORDERED: D5 1/2NS 1000ml IV ONE (19:06)
[2019-01-15] MEDS ORDERED: 1/2 NS 1000ml IV ONE (19:06)
--- NOTE | 2019-01-15 19:31 | NUR ---
HAND-OFF: Report given to Cristopher ESPINOZA.
--- NOTE | 2019-01-15 19:45 | Progress Note ---
DATE: 01/15/2019 DATE: 01/15/2019 SUBJECTIVE: This is a male patient who is 68-year-old. He still has confusion, disorganized thought process, and mood lability. He has a left ankle ulcer and cellulitis. He still has some mood lability, confusion, and disorganized thought process, worsened by stress of his medical illness. That is why his attending has requested daily psychiatric consultation. The patient's psychotropic medication regimen consisting of Depakote 250 mg twice a day. I will also treat this patient with Depakote 250 mg twice a day. We will also treat him with Paxil 20 mg daily and also treat him with Seroquel 100 mg three times a day, Haldol 5 mg two times a day, and Benadryl 50 mg three times a day. MENTAL STATUS EXAMINATION: This is a 68-year-old male. Appearance is disheveled. Attitude, irritable and agitated. Affect, guarded and restricted. Intellect, poor. Mood, depressed and anxious. Motor activity, psychomotor agitation. Attention span is poor. Orientation x2. Speech is pressured. Thought process is disorganized and illogical. Insight and judgment is poor. DIAGNOSIS: Paranoid schizophrenia, acute exacerbation. PLAN: Provide him with 20 minutes of cognitive behavioral therapy to help him identify his automatic negative thoughts and help him convert those negative thoughts to more positive thoughts to reduce depression, anxiety, and suicidality. Chart reviewed. Discussed with staff. Seen and assessed in his room. Uziel Collado M.D. DR: BREANNE JOB#: [id number] CC:
--- NOTE | 2019-01-15 20:13 | NUR ---
NURSE NOTES: Patient in bed, awake, alert.Ab le to make needs known. Respiration is even and unlabored. Neville light is at bedside. No complaint of pain or discomfort noted. Abdomen is soft and non distended. Refused to have dressing change at the moment. Bed in low and locked position. Skin is warm and dry ot touch. Kept clean and comfortable. Will continue plan of care.
[2019-01-15] MEDS: TraZODone 100mg tab ORAL SCH (21:11)
[2019-01-15] MEDS: Tamsulosin 0.4mg cap ORAL SCH (21:11)
--- NOTE | 2019-01-15 21:14 | NUR ---
NURSE NOTES: Patient refused heparin and novolog, informed patient of the risks and benefits still refused. Offered to have condom catheter, patient refused. Also asked if patient wants to change the lower extremity dressing, refused. Patient did not provide any reasoning. Patient was kicking and shouting. Will reassess. No s/s of distress noted. Call light is at bedside. Will continue plan of care.
--- NOTE | 2019-01-15 23:52 | Cardiology Progress Note ---
Assessment/Plan Assessment/Plan 1. Most likely noncardiac, chest pain. The patient is currently chest pain free. A 12-lead electrocardiogram did not show any acute ischemic changes. Troponin I level has been negative. Echo with normal LV systolic function and LVEF of 60%, In face of the patient's severe debilitation, I would not consider any invasive cardiac workup, continue aspirin and statins, beta-ni for double product control. 2. History of diabetes mellitus. 3. History of hypertension. 4. Sinus tachycardia likely due to cogentin side effects. Increase metoprolol to 50mg po bid. Subjective Subjective No cardiac events. Denies chest pain or SOB. Objective Last 24 Hour Vital Signs Date Time Temp Pulse Resp B/P (MAP) Pulse Ox O2 Delivery O2 Flow Rate FiO2 01/15/19 23:50 97.7 92 18 152/75 (100) 96 01/15/19 21:11 96 118/73 01/15/19 20:59 Room Air Room Air 01/15/19 20:00 98.0 96 18 118/73 (88) 95 01/15/19 16:00 97.8 92 18 113/67 (82) 98 01/15/19 12:00 97.0 91 16 109/65 (80) 98 01/15/19 09:00 Room Air Room Air 01/15/19 08:56 87 115/68 01/15/19 08:55 87 115/68 01/15/19 08:00 97.1 87 18 115/68 (84) 95 01/15/19 04:00 98.6 90 18 129/72 (91) 95 01/15/19 00:00 97.8 96 16 135/78 (97) 97 Intake and Output 01/14/19 01/15/19 19:00 07:00 Intake Total 1200 ml 1600 ml Output Total 1500 ml Balance 1200 ml 100 ml Intake Oral 1100 ml 500 ml IV Total 100 ml 1100 ml Output Urine Total 1500 ml # Voids 2 # Bowel Movements 1 2D Echo: LVEF 60%, Grade I LVDD Laboratory Tests Test 01/15/19 06:00 White Blood Count 9.4 K/UL (4.8-10.8) Red Blood Count 3.94 M/UL (4.70-6.10) L Hemoglobin 11.0 G/DL (14.2-18.0) L Hematocrit 35.1 % (42.0-52.0) L Mean Corpuscular Volume 89 FL (80-99) Mean Corpuscular Hemoglobin 28.0 PG (27.0-31.0) Mean Corpuscular Hemoglobin Concent 31.4 G/DL (32.0-36.0) L Red Cell Distribution Width 14.4 % (11.6-14.8) Platelet Count 309 K/UL (150-450) Mean Platelet Volume 8.7 FL (6.5-10.1) Neutrophils (%) (Auto) 63.9 % (45.0-75.0) Lymphocytes (%) (Auto) 18.3 % (20.0-45.0) L Monocytes (%) (Auto) 13.1 % (1.0-10.0) H Eosinophils (%) (Auto) 3.0 % (0.0-3.0) Basophils (%) (Auto) 1.7 % (0.0-2.0) Sodium Level 139 MMOL/L (136-145) Potassium Level 4.7 MMOL/L (3.5-5.1) Chloride Level 102 MMOL/L (98-107) Carbon Dioxide Level 30 MMOL/L (21-32) Anion Gap 7 mmol/L (5-15) Blood Urea Nitrogen 29 mg/dL (7-18) H Creatinine 1.1 MG/DL (0.55-1.30) Estimat Glomerular Filtration Rate > 60 mL/min (>60) Glucose Level 104 MG/DL (74-106) Calcium Level 10.6 MG/DL (8.5-10.1) H Objective HEENT: Atraumatic and normocephalic. Anicteric. Pupils are equal, round, and reactive to light and accommodation. Extraocular muscles intact. NECK: JVP is less than 5 cm. No carotid bruits. Carotid upstrokes 2+ bilaterally. CARDIOVASCULAR: Normal S1, S2. Regular rate and rhythm. No murmurs, gallops, or rubs. PMI is at fourth intercostal space in the midclavicular line. LUNGS: Clear to auscultation bilaterally. ABDOMEN: Soft, nontender, and nondistended. No hepatosplenomegaly. Positive bowel sounds. EXTREMITIES: Left leg ulceration. Left heel and foot with dressing, edema surrounding the ulcerations. Jimenez Polo MD Jan 15, 2019 23:52
[2019-01-16] MEDS: D5 1/2NS 1,000 ML IV SCH ×4 (00:30→18:53)
[2019-01-16 04:00] VITALS: BP 127/77
--- NOTE | 2019-01-16 05:01 | NUR ---
NURSE NOTES: Patient refused dressing change. Showed the dressing to the patient still refused. When touching the dressing, patient pushes away and kicks. Informed the patient the risks and benefits, still refused. Charge nurse zofia salazar. Call light is at bedside. No s/s of pain or discomfort noted.
[2019-01-16] MEDS: NovoLOG Insulin Flexpen SUBQ SCH ×4 (06:10→21:10)
[2019-01-16 06:56] LABS: BASOPHILS % (AUTO) 1.4 % (0.0-2.0); EOSINOPHILS % (AUTO) 3.4 % (0.0-3.0); HEMATOCRIT 31.6 % (42.0-52.0); HEMOGLOBIN 10.1 G/DL (14.2-18.0); LYMPHOCYTES % (AUTO) 18.1 % (20.0-45.0); MEAN CORPUSCULAR VOLUME 89 FL (80-99); MONOCYTES % (AUTO) 11.4 % (1.0-10.0); NEUTROPHILS % (AUTO) 65.7 % (45.0-75.0); PLATELET COUNT 265 K/UL (150-450); RED BLOOD COUNT 3.56 M/UL (4.70-6.10); RED CELL DISTRIBUTION WIDTH 13.5 % (11.6-14.8); WHITE BLOOD COUNT 11.1 K/UL (4.8-10.8)
[2019-01-16 07:17] LABS: ANION GAP 11 mmol/L (5-15); BLOOD UREA NITROGEN 21 mg/dL (7-18); CALCIUM 10.7 MG/DL (8.5-10.1); CARBON DIOXIDE 27 MMOL/L (21-32); CHLORIDE 99 MMOL/L (98-107); POTASSIUM 4.5 MMOL/L (3.5-5.1); SODIUM 137 MMOL/L (136-145)
--- NOTE | 2019-01-16 07:21 | NUR ---
HAND-OFF: Report given to OLGA Vasquez.
--- NOTE | 2019-01-16 07:25 | NUR ---
NURSE NOTES: Received patient in bed,awake, verbally responsive @ this time. Not in respiratory/cardiac distress noted. No s/s of pain or discomfort. Bed is in lowest position and locked. Call light and personnel items within reach. on IVF. Wound dressing intact.Will continue plan of care.
[2019-01-16 08:00] VITALS: BP 134/74
--- NOTE | 2019-01-16 09:10 | Nephrology Progress Note ---
Assessment/Plan Assessment 1. Hyperkalemia. resolved 2. Acute renal failure improving 3. Hypercalcemia. 4.PVD 5.HTN Plan Plan IVF monitoring post voiding low K diet monitoring urine out avoid NSAID Subjective ROS Limited/Unobtainable: Yes Constitutional: Reports: no symptoms HEENT: Reports: no symptoms Genitourinary: Reports: no symptoms Neurologic/Psychiatric: Reports: no symptoms Subjective continue to be confused Objective Objective Last 24 Hour Vital Signs Date Time Temp Pulse Resp B/P (MAP) Pulse Ox O2 Delivery O2 Flow Rate FiO2 01/16/19 08:00 97.9 101 16 134/74 (94) 99 01/16/19 04:00 97.8 96 20 127/77 (94) 99 01/15/19 23:50 97.7 92 18 152/75 (100) 96 01/15/19 21:11 96 118/73 01/15/19 20:59 Room Air Room Air 01/15/19 20:00 98.0 96 18 118/73 (88) 95 01/15/19 16:00 97.8 92 18 113/67 (82) 98 01/15/19 12:00 97.0 91 16 109/65 (80) 98 Intake and Output 01/15/19 01/16/19 19:00 07:00 Intake Total 1460 ml 1160 ml Balance 1460 ml 1160 ml Intake Oral 360 ml 360 ml IV Total 1100 ml 800 ml # Voids 2 3 # Bowel Movements 1 Laboratory Tests 01/16/19 05:55: White Blood Count 11.1H, Red Blood Count 3.56L, Hemoglobin 10.1L, Hematocrit 31.6L, Mean Corpuscular Volume 89, Mean Corpuscular Hemoglobin 28.3, Mean Corpuscular Hemoglobin Concent 31.9L, Red Cell Distribution Width 13.5, Platelet Count 265, Mean Platelet Volume 8.2, Neutrophils (%) (Auto) 65.7, Lymphocytes (%) (Auto) 18.1L, Monocytes (%) (Auto) 11.4H, Eosinophils (%) (Auto ) 3.4H, Basophils (%) (Auto) 1.4, Sodium Level 137, Potassium Level 4.5, Chloride Level 99, Carbon Dioxide Level 27, Anion Gap 11, Blood Urea Nitrogen 21H, Creatinine 1.0, Estimat Glomerular Filtration Rate > 60, Glucose Level 117H , Calcium Level 10.7H Height (Feet): 5 Height (Inches): 10.00 Weight (Pounds): 126 Objective GENERAL: The patient is a chronically ill-looking male. VITAL SIGNS: Temperature of 98 degrees, blood pressure 137/76, pulse rate of 82, respiratory rate of 18. HEAD AND NECK: Bitemporal wasting. Dry mucous membranes. Extraocular movements intact. Pupils are reactive to light and accommodation. LUNGS: Clear to auscultation. CARDIAC: Regular rate and rhythm. S1, S2 normal. No murmurs or rubs. ABDOMEN: Soft, nontender, nondistended. EXTREMITIES: Trace edema. Left lower extremity ulceration and dressing. Ximena Lee MD Jan 16, 2019 09:10
[2019-01-16] MEDS ORDERED: Metoprolol Tartrate 12.5mg TAB ONE (09:50)
[2019-01-16] MEDS: Benztropine 1mg tab ORAL SCH ×3 (09:58→17:34)
[2019-01-16] MEDS: PARoxetine 10mg tab ORAL SCH (09:58)
[2019-01-16] MEDS: Heparin 5000 units/ml inj SUBQ SCH ×2 (10:00→21:11)
[2019-01-16] MEDS: Metoprolol 25mg tab ORAL SCH ×2 (10:06→21:02)
[2019-01-16 12:00] VITALS: BP 120/79
--- NOTE | 2019-01-16 12:21 | NUR ---
RD ASSESSMENT & RECOMMENDATIONS SEE CARE ACTIVITY FOR COMPLETE ASSESSMENT DAILY ESTIMATED NEEDS: Needs based on wounds, DM 70.5kg 25-35 kcals/kg 2217-8299 total kcals 1.25-1.5 g protein/kg 88-106 g total protein 25-30 mL/kg 6383-4447 total fluid mLs NUTRITION DIAGNOSIS: 1) Increased protein needs r/t wound healing as evidenced by pt with L-ankle full thickness ulcer 2) Altered nutrition related lab values r/t renal dysfunction pending workup as evidenced by elev K (6.0-> wnl), elev BUN (21 trend down), elev Creat (1.6-> wnl). CURRENT DIET:CCHO MED, mech soft chopped + Glucerna 1 rangel QD PO DIET RECOMMENDATIONS: Consider LOW K diet/ texture as tolerated ADDITIONAL RECOMMENDATIONS: 1) calibrated bed scale wts (Per SNF: 155#) 2) WOUND CARE: add YUNI BID + VIT C 500mg BID + MVI x1 3) Monitor po intake -> pt on multiple psych meds, may alter appetite 4) Add Nepro TID w/ meals 5) Add HS snack to prevent hypoglycemia in the AM. 6) Consider appetite stimulant given poor PO + underweight status 7) LOW K diet recommended given multiple episodes of elev K
--- NOTE | 2019-01-16 12:47 | Pulmonology Progress Note ---
Assessment/Plan Problems: (1) Cellulitis (2) Severe anemia (3) Hypertension (4) UTI (urinary tract infection) (5) Schizoaffective disorder (6) Diabetes (7) History of CVA (cerebrovascular accident) Assessment/Plan all reviewed doing better, no new complains in better spirit wound care check cultures symptomatic treatment respiratory treatment dvt prophylaxis. dc planning in progress Subjective ROS Limited/Unobtainable: No Constitutional: Reports: no symptoms HEENT: Repors: no symptoms Allergies: Coded Allergies: THIORIDAZINE (Unverified Allergy, Mild, HIVES, 04/06/15) PENICILLIN (Unverified Allergy, Unknown, 06/15/15) PENICILLINS (Unverified Allergy, Unknown, 11/24/17) Objective Last 24 Hour Vital Signs Date Time Temp Pulse Resp B/P (MAP) Pulse Ox O2 Delivery O2 Flow Rate FiO2 01/16/19 10:06 101 134/74 01/16/19 09:59 101 134/74 01/16/19 09:00 Room Air Room Air 01/16/19 08:00 97.9 101 16 134/74 (94) 99 01/16/19 04:00 97.8 96 20 127/77 (94) 99 01/15/19 23:50 97.7 92 18 152/75 (100) 96 01/15/19 21:11 96 118/73 01/15/19 20:59 Room Air Room Air 01/15/19 20:00 98.0 96 18 118/73 (88) 95 01/15/19 16:00 97.8 92 18 113/67 (82) 98 Intake and Output 01/15/19 01/16/19 18:59 06:59 Intake Total 1460 ml 1160 ml Balance 1460 ml 1160 ml Intake Oral 360 ml 360 ml IV Total 1100 ml 800 ml # Voids 2 3 # Bowel Movements 1 Objective General Appearance: WD/WN Lines, tubes and drains: peripheral HEENT: normocephalic, atraumatic Neck: non-tender, supple Respiratory/Chest: chest wall non-tender, lungs clear Breasts: no masses Cardiovascular/Chest: normal rate, no JVD Abdomen: normal bowel sounds Genitourinary/Rectal: normal genital exam, heme negative stool Extremities: normal range of motion, non-tender Skin Exam: normal pigmentation Neurologic: attending pathologist II-XII 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 Laboratory Tests 01/16/19 05:55: White Blood Count 11.1H, Red Blood Count 3.56L, Hemoglobin 10.1L, Hematocrit 31.6L, Mean Corpuscular Volume 89, Mean Corpuscular Hemoglobin 28.3, Mean Corpuscular Hemoglobin Concent 31.9L, Red Cell Distribution Width 13.5, Platelet Count 265, Mean Platelet Volume 8.2, Neutrophils (%) (Auto) 65.7, Lymphocytes (%) (Auto) 18.1L, Monocytes (%) (Auto) 11.4H, Eosinophils (%) (Auto ) 3.4H, Basophils (%) (Auto) 1.4, Sodium Level 137, Potassium Level 4.5, Chloride Level 99, Carbon Dioxide Level 27, Anion Gap 11, Blood Urea Nitrogen 21H, Creatinine 1.0, Estimat Glomerular Filtration Rate > 60, Glucose Level 117H , Calcium Level 10.7H Current Medications Medications (Trade) Dose Ordered Sig/Taco Route PRN Reason Start Time Stop Time Status Last Admin Dose Admin Acetaminophen (Tylenol) 650 mg Q4H PRN ORAL fever 12/26/18 19:30 01/25/19 19:29 Amlodipine Besylate (Norvasc) 10 mg DAILY ORAL 12/27/18 09:00 01/26/19 08:59 01/16/19 09:59 Benztropine Mesylate (Cogentin) 1 mg THREE TIMES A DAY ORAL 12/27/18 18:00 01/26/19 17:59 01/16/19 09:58 Clonidine HCl (Catapres Tab) 0.1 mg Q6H PRN ORAL For High Blood Pressure 12/26/18 20:00 01/25/19 19:59 Clopidogrel Bisulfate (Plavix) 75 mg DAILY ORAL 12/27/18 09:00 01/26/19 08:59 01/16/19 09:59 Dextrose (Dextrose 50%) 25 ml Q30M PRN IV Hypoglycemia 12/26/18 19:45 01/25/19 19:33 Dextrose (Dextrose 50%) 50 ml Q30M PRN IV hypoglycemia 12/26/18 19:45 01/25/19 19:44 Dextrose/Sodium Chloride 1,000 ml @ 100 mls/hr Q10H IV 01/14/19 08:30 02/13/19 08:29 01/16/19 03:00 Divalproex Sodium (Depakote) 250 mg Q12HR ORAL 12/26/18 21:00 01/25/19 20:59 01/16/19 09:59 Gabapentin (Neurontin) 300 mg THREE TIMES A DAY ORAL 12/27/18 09:00 01/26/19 08:59 01/16/19 09:59 Haloperidol (Haldol) 5 mg TID ORAL 12/27/18 18:00 01/26/19 17:59 01/16/19 09:58 Heparin Sodium (Porcine) (Heparin 5000 units/ml) 5,000 units EVERY 12 HOURS SUBQ 12/26/18 21:00 01/25/19 20:59 01/16/19 10:00 Insulin Aspart (NovoLOG) BEFORE MEALS AND HS SUBQ 12/26/18 21:00 01/25/19 20:59 01/16/19 12:19 Magnesium Hydroxide (Mom) 30 ml DAILYPRN PRN ORAL Constipation 12/26/18 20:00 01/25/19 19:59 01/07/19 13:30 Metoprolol Tartrate (Lopressor) 25 mg Q12HR ORAL 01/10/19 21:00 02/09/19 20:59 01/16/19 10:06 Nitroglycerin (Ntg) 0.4 mg Q5M PRN SL Prn Chest Pain 12/26/18 19:30 01/25/19 19:29 01/01/19 15:18 Ondansetron HCl (Zofran) 4 mg Q6H PRN IVP Nausea & Vomiting 12/26/18 19:30 01/25/19 19:29 12/29/18 09:04 Pantoprazole (Protonix) 40 mg DAILY ORAL 12/27/18 09:00 01/26/19 08:59 01/16/19 09:58 Paroxetine HCl (Paxil) 30 mg DAILY ORAL 12/27/18 09:00 01/26/19 08:59 01/16/19 09:58 Polyethylene Glycol (Miralax) 17 gm DAILYPRN PRN ORAL Constipation 12/26/18 20:00 01/25/19 19:29 Quetiapine Fumarate (SEROquel) 100 mg THREE TIMES A DAY ORAL 12/27/18 09:00 01/26/19 08:59 01/16/19 09:58 Tamsulosin HCl (Flomax) 0.4 mg BEDTIME ORAL 12/26/18 21:00 01/25/19 20:59 01/15/19 21:11 Trazodone HCl (Desyrel) 100 mg BEDTIME ORAL 12/26/18 21:00 01/25/19 20:59 01/15/19 21:11 Vanesa Skinner MD Jan 16, 2019 12:47
--- NOTE | 2019-01-16 13:30 | NUR ---
NURSE NOTES: PT refused to take 1:00pm medications. RN explained the risks and benefits.
--- NOTE | 2019-01-16 14:11 | Surgery Progress Note ---
Surgery Progress Note Subjective Additional Comments refused dressing change this morning. states he is okay. pain in foot still. does not want to talk about care plan for wound or possibility if not cared for. Objective Last 24 Hour Vital Signs Date Time Temp Pulse Resp B/P (MAP) Pulse Ox O2 Delivery O2 Flow Rate FiO2 01/16/19 10:06 101 134/74 01/16/19 09:59 101 134/74 01/16/19 09:00 Room Air Room Air 01/16/19 08:00 97.9 101 16 134/74 (94) 99 01/16/19 04:00 97.8 96 20 127/77 (94) 99 01/15/19 23:50 97.7 92 18 152/75 (100) 96 01/15/19 21:11 96 118/73 01/15/19 20:59 Room Air Room Air 01/15/19 20:00 98.0 96 18 118/73 (88) 95 01/15/19 16:00 97.8 92 18 113/67 (82) 98 I&O Intake and Output 01/15/19 01/16/19 18:59 06:59 Intake Total 1460 ml 1160 ml Balance 1460 ml 1160 ml Intake Oral 360 ml 360 ml IV Total 1100 ml 800 ml # Voids 2 3 # Bowel Movements 1 Dressing: saturated Wound: other Drains: other Cardiovascular: RSR Respiratory: clear Abdomen: soft, flat, non-tender, non-distended Extremities: tenderness, cyanosis Laboratory Tests Test 01/16/19 05:55 White Blood Count 11.1 K/UL (4.8-10.8) H Red Blood Count 3.56 M/UL (4.70-6.10) L Hemoglobin 10.1 G/DL (14.2-18.0) L Hematocrit 31.6 % (42.0-52.0) L Mean Corpuscular Volume 89 FL (80-99) Mean Corpuscular Hemoglobin 28.3 PG (27.0-31.0) Mean Corpuscular Hemoglobin Concent 31.9 G/DL (32.0-36.0) L Red Cell Distribution Width 13.5 % (11.6-14.8) Platelet Count 265 K/UL (150-450) Mean Platelet Volume 8.2 FL (6.5-10.1) Neutrophils (%) (Auto) 65.7 % (45.0-75.0) Lymphocytes (%) (Auto) 18.1 % (20.0-45.0) L Monocytes (%) (Auto) 11.4 % (1.0-10.0) H Eosinophils (%) (Auto) 3.4 % (0.0-3.0) H Basophils (%) (Auto) 1.4 % (0.0-2.0) Sodium Level 137 MMOL/L (136-145) Potassium Level 4.5 MMOL/L (3.5-5.1) Chloride Level 99 MMOL/L (98-107) Carbon Dioxide Level 27 MMOL/L (21-32) Anion Gap 11 mmol/L (5-15) Blood Urea Nitrogen 21 mg/dL (7-18) H Creatinine 1.0 MG/DL (0.55-1.30) Estimat Glomerular Filtration Rate > 60 mL/min (>60) Glucose Level 117 MG/DL (74-106) H Calcium Level 10.7 MG/DL (8.5-10.1) H Plan Problems: (1) Ulcer of left ankle Assessment & Plan: large chronic left ankle ulceration near circumferential on left ankle. full thickness with eschar on some areas and some areas of granulation tissue. no drainage. no fluctuance. tender, periwound okay. pulses diminished. calf okay. foot with decreased cap refill. please see photos Plain films noted venous duplex without dvt and patent. labs noted long discussion about wound and leg with patient. states he has no intention of having debridement, grafting, or amputation at anytime. will now allow wound to be cleaned properly. will only allow for dressing to be changed. spoke with patient and he still very firm with his decision. -wash left ankle daily with NS. apply xeroform to wound, ABD, and wrap with kerlix -okay to d/c from surgical standpoint -outpatient wound care follow up thank you will follow with recs. (2) Failure to thrive in adult Assessment & Plan: DAILY ESTIMATED NEEDS: Needs based on wounds, DM 70.5kg 25-35 kcals/kg 8787-8060 total kcals 1.25-1.5 g protein/kg 88-106 g total protein 25-30 mL/kg 9021-3152 total fluid mLs NUTRITION DIAGNOSIS: 1) Increased protein needs r/t wound healing as evidenced by pt with L-ankle full thickness ulcer 2) Altered nutrition related lab values r/t renal dysfunction pending workup as evidenced by elev K (6.0-> 5.6), elev BUN (66, trending up), elev Creat (1.6). CURRENT DIET: CCHO MED PO DIET RECOMMENDATIONS: RENAL DIET + DOUBLE PROTIONS + NEPRO 1 TETRA ABRAM DAILY ADDITIONAL RECOMMENDATIONS: 1) calibrated bed scale wts (Per SNF: 155#) 2) WOUND CARE: add YUNI BID + VIT C 500mg BID + MVI x1 3) Monitor po intake -> pt on multiple psych meds, may alter appetite -> Varibale intake, rec Glucerna daily 4) Add HS snack to prevent hypoglycemia in the AM. 5) REC DIET CHANGE TO RENAL / SOFT EASY CHEW + NEPRO Devon Sullivan Jan 16, 2019 14:11
--- NOTE | 2019-01-16 14:40 | General Progress Note ---
Assessment/Plan Problem List: (1) History of CVA (cerebrovascular accident) ICD Codes: Z86.73 - Personal history of transient ischemic attack (TIA), and cerebral infarction without residual deficits SNOMED: 246511715 (2) Cellulitis ICD Codes: L03.90 - Cellulitis, unspecified SNOMED: 127174598 (3) Anemia ICD Codes: D64.9 - Anemia SNOMED: 387895105 (4) Diabetes ICD Codes: E11.9 - Diabetes SNOMED: 38245218 (5) Hypertension ICD Codes: I10 - Hypertension SNOMED: 28914541 (6) Failure to thrive in adult ICD Codes: R62.7 - Adult failure to thrive SNOMED: 386401162 (7) Ulcer of left ankle ICD Codes: L97.329 - Non-pressure chronic ulcer of left ankle with unspecified severity SNOMED: 768452688, 31161107 Qualifiers: Qualified Codes: L97.322 - Non-pressure chronic ulcer of left ankle with fat layer exposed Status: stable, progressing Assessment/Plan wound care abx pain control cbc bmp am promise ltach eval transfer Subjective Constitutional: Reports: weakness Allergies: Coded Allergies: THIORIDAZINE (Unverified Allergy, Mild, HIVES, 04/06/15) PENICILLIN (Unverified Allergy, Unknown, 06/15/15) PENICILLINS (Unverified Allergy, Unknown, 11/24/17) All Systems: reviewed and negative except above Subjective sl foot pain Objective Last 24 Hour Vital Signs Date Time Temp Pulse Resp B/P (MAP) Pulse Ox O2 Delivery O2 Flow Rate FiO2 01/16/19 12:00 98.5 103 19 120/79 (93) 98 01/16/19 10:06 101 134/74 01/16/19 09:59 101 134/74 01/16/19 09:00 Room Air Room Air 01/16/19 08:00 97.9 101 16 134/74 (94) 99 01/16/19 04:00 97.8 96 20 127/77 (94) 99 01/15/19 23:50 97.7 92 18 152/75 (100) 96 01/15/19 21:11 96 118/73 01/15/19 20:59 Room Air Room Air 01/15/19 20:00 98.0 96 18 118/73 (88) 95 01/15/19 16:00 97.8 92 18 113/67 (82) 98 Intake and Output 01/15/19 01/16/19 19:00 07:00 Intake Total 1460 ml 1260 ml Balance 1460 ml 1260 ml Intake Oral 360 ml 360 ml IV Total 1100 ml 900 ml # Voids 2 3 # Bowel Movements 1 Laboratory Tests 01/16/19 05:55: White Blood Count 11.1H, Red Blood Count 3.56L, Hemoglobin 10.1L, Hematocrit 31.6L, Mean Corpuscular Volume 89, Mean Corpuscular Hemoglobin 28.3, Mean Corpuscular Hemoglobin Concent 31.9L, Red Cell Distribution Width 13.5, Platelet Count 265, Mean Platelet Volume 8.2, Neutrophils (%) (Auto) 65.7, Lymphocytes (%) (Auto) 18.1L, Monocytes (%) (Auto) 11.4H, Eosinophils (%) (Auto ) 3.4H, Basophils (%) (Auto) 1.4, Sodium Level 137, Potassium Level 4.5, Chloride Level 99, Carbon Dioxide Level 27, Anion Gap 11, Blood Urea Nitrogen 21H, Creatinine 1.0, Estimat Glomerular Filtration Rate > 60, Glucose Level 117H , Calcium Level 10.7H Height (Feet): 5 Height (Inches): 10.00 Weight (Pounds): 126 General Appearance: lethargic EENT: normal ENT inspection Neck: normal alignment Cardiovascular: normal peripheral pulses, normal rate, regular rhythm Respiratory/Chest: chest wall non-tender, lungs clear, normal breath sounds Abdomen: normal bowel sounds, non tender, soft Extremities: normal inspection Edema: no edema noted Arm (L), no edema noted Arm (R), no edema noted Leg (L), no edema noted Leg (R), no edema noted Pedal (L), no edema noted Pedal (R), no edema noted Generalized Neurologic: motor weakness Skin: normal pigmentation, warm/dry Objective foot dressing c&d Jarek Gonzalez DO Jan 16, 2019 14:40
--- NOTE | 2019-01-16 14:56 | Infectious Diseases Prog Note ---
Assessment/Plan Assessment/Plan Assessment: L ankle ulcer- mild gavin wound cellulitis;ulcer itself not infected Wnd : Morg. M , StrpGrpG, cantor S PsA( colonizers ) -Xray ankle: No definite acute bony process. Possible lateral soft tissue irregularity-correlate with clinical findings -Bcx neg Afebrile Mild leukocytosis; recurrent, resolved -01/12 u/a neg CXR: 1. A triangular opacity overlies the lateral aspect of the right lower lung. This may represent overlapping soft tissue however cannot exclude underlying airspace disease/pneumonia. Recommend correlation with a lateral view. Mildly increased interstitial markings. This is nonspecific but may suggest mild bronchitis or interstitial pneumonitis. DM2 HTN COPD SNF resident Plan: -Continue to monitor off abx as he is clinically stable -01/03 SP Doxycycline #7 IV Vancomycin #3 12/28 -s/p IV Vancomycin x1 12/26 -Monitor CBC/CMP, temperatures -wound care per surgical team. -CBC, CMP am Subjective Allergies: Coded Allergies: THIORIDAZINE (Unverified Allergy, Mild, HIVES, 04/06/15) PENICILLIN (Unverified Allergy, Unknown, 06/15/15) PENICILLINS (Unverified Allergy, Unknown, 11/24/17) Subjective afebrile mild leukocytosis off abx Objective Vital Signs Last 24 Hour Vital Signs Date Time Temp Pulse Resp B/P (MAP) Pulse Ox O2 Delivery O2 Flow Rate FiO2 01/16/19 12:00 98.5 103 19 120/79 (93) 98 01/16/19 10:06 101 134/74 01/16/19 09:59 101 134/74 01/16/19 09:00 Room Air Room Air 01/16/19 08:00 97.9 101 16 134/74 (94) 99 01/16/19 04:00 97.8 96 20 127/77 (94) 99 01/15/19 23:50 97.7 92 18 152/75 (100) 96 01/15/19 21:11 96 118/73 01/15/19 20:59 Room Air Room Air 01/15/19 20:00 98.0 96 18 118/73 (88) 95 01/15/19 16:00 97.8 92 18 113/67 (82) 98 Height (Feet): 5 Height (Inches): 10.00 Weight (Pounds): 126 Objective General Appearance: no apparent distress, alert, non-toxic HEENT: normocephalic, atraumatic bilateral eye PERRL, normal pharynx Neck: full range of motion, supple/symm/no masses Respiratory: chest non-tender, lungs clear, normal breath sounds, speaking full sentences Cardiovascular : regular rate, rhythm, no edema Gastrointestinal: normal bowel sounds, non tender, soft, non-distended, no guarding, no rebound Genitourinary: normal inspection, no CVA tenderness Musculoskeletal: back normal, gait/station normal, normal range of motion, non- tender Neurologic: alert, oriented x3, responsive, motor strength/tone normal, sensory intact, speech normal Psychiatric: judgement/insight normal, memory normal, mood/affect normal, no suicidal/homicidal ideation Skin: other - large ulcer to L ankle. surrounding erythema/induration Laboratory Tests Test 01/16/19 05:55 White Blood Count 11.1 K/UL (4.8-10.8) H Red Blood Count 3.56 M/UL (4.70-6.10) L Hemoglobin 10.1 G/DL (14.2-18.0) L Hematocrit 31.6 % (42.0-52.0) L Mean Corpuscular Volume 89 FL (80-99) Mean Corpuscular Hemoglobin 28.3 PG (27.0-31.0) Mean Corpuscular Hemoglobin Concent 31.9 G/DL (32.0-36.0) L Red Cell Distribution Width 13.5 % (11.6-14.8) Platelet Count 265 K/UL (150-450) Mean Platelet Volume 8.2 FL (6.5-10.1) Neutrophils (%) (Auto) 65.7 % (45.0-75.0) Lymphocytes (%) (Auto) 18.1 % (20.0-45.0) L Monocytes (%) (Auto) 11.4 % (1.0-10.0) H Eosinophils (%) (Auto) 3.4 % (0.0-3.0) H Basophils (%) (Auto) 1.4 % (0.0-2.0) Sodium Level 137 MMOL/L (136-145) Potassium Level 4.5 MMOL/L (3.5-5.1) Chloride Level 99 MMOL/L (98-107) Carbon Dioxide Level 27 MMOL/L (21-32) Anion Gap 11 mmol/L (5-15) Blood Urea Nitrogen 21 mg/dL (7-18) H Creatinine 1.0 MG/DL (0.55-1.30) Estimat Glomerular Filtration Rate > 60 mL/min (>60) Glucose Level 117 MG/DL (74-106) H Calcium Level 10.7 MG/DL (8.5-10.1) H Current Medications Medications (Trade) Dose Ordered Sig/Taco Route PRN Reason Start Time Stop Time Status Last Admin Dose Admin Acetaminophen (Tylenol) 650 mg Q4H PRN ORAL fever 12/26/18 19:30 01/25/19 19:29 Amlodipine Besylate (Norvasc) 10 mg DAILY ORAL 12/27/18 09:00 01/26/19 08:59 01/16/19 09:59 Benztropine Mesylate (Cogentin) 1 mg THREE TIMES A DAY ORAL 12/27/18 18:00 01/26/19 17:59 01/16/19 09:58 Clonidine HCl (Catapres Tab) 0.1 mg Q6H PRN ORAL For High Blood Pressure 12/26/18 20:00 01/25/19 19:59 Clopidogrel Bisulfate (Plavix) 75 mg DAILY ORAL 12/27/18 09:00 01/26/19 08:59 01/16/19 09:59 Dextrose (Dextrose 50%) 25 ml Q30M PRN IV Hypoglycemia 12/26/18 19:45 01/25/19 19:33 Dextrose (Dextrose 50%) 50 ml Q30M PRN IV hypoglycemia 12/26/18 19:45 01/25/19 19:44 Dextrose/Sodium Chloride 1,000 ml @ 100 mls/hr Q10H IV 01/14/19 08:30 02/13/19 08:29 01/16/19 03:00 Divalproex Sodium (Depakote) 250 mg Q12HR ORAL 12/26/18 21:00 01/25/19 20:59 01/16/19 09:59 Gabapentin (Neurontin) 300 mg THREE TIMES A DAY ORAL 12/27/18 09:00 01/26/19 08:59 01/16/19 09:59 Haloperidol (Haldol) 5 mg TID ORAL 12/27/18 18:00 01/26/19 17:59 01/16/19 09:58 Heparin Sodium (Porcine) (Heparin 5000 units/ml) 5,000 units EVERY 12 HOURS SUBQ 12/26/18 21:00 01/25/19 20:59 01/16/19 10:00 Insulin Aspart (NovoLOG) BEFORE MEALS AND HS SUBQ 12/26/18 21:00 01/25/19 20:59 01/16/19 12:19 Magnesium Hydroxide (Mom) 30 ml DAILYPRN PRN ORAL Constipation 12/26/18 20:00 01/25/19 19:59 01/07/19 13:30 Metoprolol Tartrate (Lopressor) 25 mg Q12HR ORAL 01/10/19 21:00 02/09/19 20:59 01/16/19 10:06 Nitroglycerin (Ntg) 0.4 mg Q5M PRN SL Prn Chest Pain 12/26/18 19:30 01/25/19 19:29 01/01/19 15:18 Ondansetron HCl (Zofran) 4 mg Q6H PRN IVP Nausea & Vomiting 12/26/18 19:30 01/25/19 19:29 12/29/18 09:04 Pantoprazole (Protonix) 40 mg DAILY ORAL 12/27/18 09:00 01/26/19 08:59 01/16/19 09:58 Paroxetine HCl (Paxil) 30 mg DAILY ORAL 12/27/18 09:00 01/26/19 08:59 01/16/19 09:58 Polyethylene Glycol (Miralax) 17 gm DAILYPRN PRN ORAL Constipation 12/26/18 20:00 01/25/19 19:29 Quetiapine Fumarate (SEROquel) 100 mg THREE TIMES A DAY ORAL 12/27/18 09:00 01/26/19 08:59 01/16/19 09:58 Tamsulosin HCl (Flomax) 0.4 mg BEDTIME ORAL 12/26/18 21:00 01/25/19 20:59 01/15/19 21:11 Trazodone HCl (Desyrel) 100 mg BEDTIME ORAL 12/26/18 21:00 01/25/19 20:59 01/15/19 21:11 Mireya Campos M.D. Jan 16, 2019 14:56
[2019-01-16 16:00] VITALS: BP 144/82
--- NOTE | 2019-01-16 18:30 | NUR ---
NURSE NOTES: Rn changed the wound dressing.
--- NOTE | 2019-01-16 19:16 | NUR ---
HAND-OFF: Report given to
--- NOTE | 2019-01-16 19:30 | NUR ---
NURSE NOTES: Patient asleep in bed but responds to voice. No complaints of pain. Instructed the use of call light. Call light and needs in reach. Bed in lowest position, lock engaged and alarm on. Will continue to monitor.
[2019-01-16 20:00] VITALS: BP 129/72
--- NOTE | 2019-01-16 20:15 | Progress Note ---
DATE: 01/16/2019 SUBJECTIVE: This is a male patient who is 68 years old. He has a left ankle ulcer and cellulitis causing him to have altered mental status and decline in cognition below his baseline. That is why his attending has requested daily psychiatric consultation for this patient. MENTAL STATUS EXAMINATION: The patient is a 68-year-old male. His appearance is disheveled. Attitude, irritable and agitated. Affect, guarded and restricted. Intellect poor. Mood depressed and anxious. Motor activity, psychomotor agitation. Attention span is poor. Orientation x2. Speech is low volume and slurred. Thought process, disorganized and illogical. Insight and judgment is poor. DIAGNOSIS: Schizoaffective, bipolar type. PLAN: Treat him with Seroquel 100 mg three times a day, Paxil 10 mg daily, and Haldol 5 mg three times a day, Neurontin 300 mg three times a day, also treated with Cogentin 1 mg three times a day, trazodone 100 mg at bedtime and also provided him with 20 minutes of reality based supportive psychotherapy and 20 minutes of cognitive behavioral therapy to to help him identify his automatic negative thoughts and help him to convert those negative thoughts to more positive thoughts to reduce depression, anxiety, and suicidality and also help him have a more adaptive behavioral pattern. He is not suicidal right now, but he has a lot of mood lability, which is reason why his Depakote added for mood lability. Continued to be followed by Psychiatry Chart was reviewed. Discussed with staff. Seen and assessed in his room. Uziel Collado M.D. DR: Sandra JOB#: [id number] CC:
[2019-01-16] MEDS: TraZODone 100mg tab ORAL SCH (21:02)
[2019-01-16] MEDS: Tamsulosin 0.4mg cap ORAL SCH (21:02)
--- NOTE | 2019-01-16 23:51 | Cardiology Progress Note ---
Assessment/Plan Assessment/Plan 1. Most likely noncardiac, chest pain. The patient is currently chest pain free. A 12-lead electrocardiogram did not show any acute ischemic changes. Troponin I level has been negative. Echo with normal LV systolic function and LVEF of 60%, continue aspirin, statins, and beta-blockers. 2. History of diabetes mellitus. 3. History of hypertension. 4. Sinus tachycardia likely due to cogentin side effects. Continue metoprolol 100mg bid. Subjective Subjective Denies chest pain or SOB. Objective Last 24 Hour Vital Signs Date Time Temp Pulse Resp B/P (MAP) Pulse Ox O2 Delivery O2 Flow Rate FiO2 01/16/19 21:02 105 129/72 01/16/19 21:00 Room Air Room Air 01/16/19 20:00 97.3 93 18 129/72 (91) 96 01/16/19 16:00 97.6 100 20 144/82 (102) 98 01/16/19 12:00 98.5 103 19 120/79 (93) 98 01/16/19 10:06 101 134/74 01/16/19 09:59 101 134/74 01/16/19 09:00 Room Air Room Air 01/16/19 08:00 97.9 101 16 134/74 (94) 99 01/16/19 04:00 97.8 96 20 127/77 (94) 99 Intake and Output 01/15/19 01/16/19 19:00 07:00 Intake Total 1460 ml 1260 ml Balance 1460 ml 1260 ml Intake Oral 360 ml 360 ml IV Total 1100 ml 900 ml # Voids 2 3 # Bowel Movements 1 2D Echo: LVEF 60%, Grade I LVDD Laboratory Tests Test 01/16/19 05:55 White Blood Count 11.1 K/UL (4.8-10.8) H Red Blood Count 3.56 M/UL (4.70-6.10) L Hemoglobin 10.1 G/DL (14.2-18.0) L Hematocrit 31.6 % (42.0-52.0) L Mean Corpuscular Volume 89 FL (80-99) Mean Corpuscular Hemoglobin 28.3 PG (27.0-31.0) Mean Corpuscular Hemoglobin Concent 31.9 G/DL (32.0-36.0) L Red Cell Distribution Width 13.5 % (11.6-14.8) Platelet Count 265 K/UL (150-450) Mean Platelet Volume 8.2 FL (6.5-10.1) Neutrophils (%) (Auto) 65.7 % (45.0-75.0) Lymphocytes (%) (Auto) 18.1 % (20.0-45.0) L Monocytes (%) (Auto) 11.4 % (1.0-10.0) H Eosinophils (%) (Auto) 3.4 % (0.0-3.0) H Basophils (%) (Auto) 1.4 % (0.0-2.0) Sodium Level 137 MMOL/L (136-145) Potassium Level 4.5 MMOL/L (3.5-5.1) Chloride Level 99 MMOL/L (98-107) Carbon Dioxide Level 27 MMOL/L (21-32) Anion Gap 11 mmol/L (5-15) Blood Urea Nitrogen 21 mg/dL (7-18) H Creatinine 1.0 MG/DL (0.55-1.30) Estimat Glomerular Filtration Rate > 60 mL/min (>60) Glucose Level 117 MG/DL (74-106) H Calcium Level 10.7 MG/DL (8.5-10.1) H Objective HEENT: Atraumatic and normocephalic. Anicteric. Pupils are equal, round, and reactive to light and accommodation. Extraocular muscles intact. NECK: JVP is less than 5 cm. No carotid bruits. Carotid upstrokes 2+ bilaterally. CARDIOVASCULAR: Normal S1, S2. Regular rate and rhythm. Tachycardic. No murmurs, gallops, or rubs. PMI is at fourth intercostal space in the midclavicular line. LUNGS: Clear to auscultation bilaterally. ABDOMEN: Soft, nontender, and nondistended. No hepatosplenomegaly. Positive bowel sounds. EXTREMITIES: Left leg ulceration. Left heel and foot with dressing, edema surrounding the ulcerations. Jimenez Polo MD Jan 16, 2019 23:51
[2019-01-17] VITALS: BP 150/76
[2019-01-17 04:00] VITALS: BP 157/87
[2019-01-17] MEDS: D5 1/2NS 1,000 ML IV SCH ×2 (04:02→18:07)
[2019-01-17] MEDS: NovoLOG Insulin Flexpen SUBQ SCH ×4 (05:34→20:32)
--- NOTE | 2019-01-17 07:29 | NUR ---
HAND-OFF: Report given to Marline Ashley.
[2019-01-17 08:00] VITALS: BP 146/76
[2019-01-17 08:02] LABS: BASOPHILS % (AUTO) 1.2 % (0.0-2.0); EOSINOPHILS % (AUTO) 4.3 % (0.0-3.0); HEMOGLOBIN 10.7 G/DL (14.2-18.0); LYMPHOCYTES % (AUTO) 19.8 % (20.0-45.0); MEAN CORPUSCULAR VOLUME 88 FL (80-99); MONOCYTES % (AUTO) 12.4 % (1.0-10.0); NEUTROPHILS % (AUTO) 62.3 % (45.0-75.0); PLATELET COUNT 256 K/UL (150-450); RED BLOOD COUNT 3.74 M/UL (4.70-6.10); RED CELL DISTRIBUTION WIDTH 13.4 % (11.6-14.8); WHITE BLOOD COUNT 7.9 K/UL (4.8-10.8)
[2019-01-17 08:20] LABS: ALANINE AMINOTRANSFERASE 35 U/L (12-78); ALBUMIN 2.3 G/DL (3.4-5.0); ALBUMIN/GLOBULIN RATIO 0.3 (1.0-2.7); ALKALINE PHOSPHATASE 164 U/L (46-116); ANION GAP 11 mmol/L (5-15); ASPARTATE AMINO TRANSFERASE 34 U/L (15-37); BILIRUBIN,TOTAL 0.3 MG/DL (0.2-1.0); BLOOD UREA NITROGEN 12 mg/dL (7-18); CALCIUM 10.7 MG/DL (8.5-10.1); CARBON DIOXIDE 29 MMOL/L (21-32); CHLORIDE 97 MMOL/L (98-107); POTASSIUM 3.9 MMOL/L (3.5-5.1); SODIUM 137 MMOL/L (136-145)
[2019-01-17] MEDS: Benztropine 1mg tab ORAL SCH ×3 (08:22→18:07)
[2019-01-17] MEDS: PARoxetine 10mg tab ORAL SCH (08:23)
[2019-01-17] MEDS: Metoprolol 25mg tab ORAL SCH ×2 (08:25→20:31)
[2019-01-17] MEDS: Heparin 5000 units/ml inj SUBQ SCH ×2 (08:26→20:31)
--- NOTE | 2019-01-17 09:07 | Nephrology Progress Note ---
Assessment/Plan Assessment 1. Hyperkalemia. resolved 2. Acute renal failure improving 3. Hypercalcemia. 4.PVD 5.HTN Plan Plan IVF low K diet monitoring urine out avoid NSAID Subjective Constitutional: Reports: no symptoms HEENT: Reports: no symptoms Genitourinary: Reports: no symptoms Neurologic/Psychiatric: Reports: no symptoms Subjective continue to be confused Objective Objective Last 24 Hour Vital Signs Date Time Temp Pulse Resp B/P (MAP) Pulse Ox O2 Delivery O2 Flow Rate FiO2 01/17/19 08:25 99 146/76 01/17/19 08:24 99 146/76 01/17/19 08:00 98.5 99 18 146/76 (99) 98 01/17/19 04:00 98.3 98 20 157/87 (110) 97 01/17/19 00:00 97.3 88 18 150/76 (100) 97 01/16/19 21:02 105 129/72 01/16/19 21:00 Room Air Room Air 01/16/19 20:00 97.3 93 18 129/72 (91) 96 01/16/19 16:00 97.6 100 20 144/82 (102) 98 01/16/19 12:00 98.5 103 19 120/79 (93) 98 01/16/19 10:06 101 134/74 01/16/19 09:59 101 134/74 Intake and Output 01/16/19 01/17/19 19:00 07:00 Intake Total 1280 ml 1100 ml Output Total 1050 ml Balance 1280 ml 50 ml Intake Oral 480 ml IV Total 800 ml 1100 ml Output Urine Total 1050 ml # Voids 4 Laboratory Tests 01/17/19 04:58: White Blood Count 7.9, Red Blood Count 3.74L, Hemoglobin 10.7L, Hematocrit 33.0L , Mean Corpuscular Volume 88, Mean Corpuscular Hemoglobin 28.7, Mean Corpuscular Hemoglobin Concent 32.5, Red Cell Distribution Width 13.4, Platelet Count 256, Mean Platelet Volume 7.7, Neutrophils (%) (Auto) 62.3, Lymphocytes (% ) (Auto) 19.8L, Monocytes (%) (Auto) 12.4H, Eosinophils (%) (Auto) 4.3H, Basophils (%) (Auto) 1.2, Sodium Level 137, Potassium Level 3.9, Chloride Level 97L, Carbon Dioxide Level 29, Anion Gap 11, Blood Urea Nitrogen 12, Creatinine 1.0, Estimat Glomerular Filtration Rate > 60, Glucose Level 102, Calcium Level 10.7H, Total Bilirubin 0.3, Aspartate Amino Transf (AST/SGOT) 34, Alanine Aminotransferase (ALT/SGPT) 35, Alkaline Phosphatase 164H, Total Protein 9.3H, Albumin 2.3L, Globulin 7.0, Albumin/Globulin Ratio 0.3L Height (Feet): 5 Height (Inches): 10.00 Weight (Pounds): 126 Objective GENERAL: The patient is a chronically ill-looking male. VITAL SIGNS: Temperature of 98 degrees, blood pressure 137/76, pulse rate of 82, respiratory rate of 18. HEAD AND NECK: Bitemporal wasting. Dry mucous membranes. Extraocular movements intact. Pupils are reactive to light and accommodation. LUNGS: Clear to auscultation. CARDIAC: Regular rate and rhythm. S1, S2 normal. No murmurs or rubs. ABDOMEN: Soft, nontender, nondistended. EXTREMITIES: Trace edema. Left lower extremity ulceration and dressing. Ximena Lee MD Jan 17, 2019 09:07
--- NOTE | 2019-01-17 09:13 | NUR ---
FORM TAMPER OPERATOR Co-Signature: Reviewed patient's chart. Reviewed and approved FORM TAMPER OPERATOR notes Addendum: 01/17/19 at 0913 by HIRO GORDON PT,MG Amended: Links added.
--- NOTE | 2019-01-17 09:14 | NUR ---
AREA SUPERVISOR Co-Signature: Reviewed patient's chart. Reviewed and approved AREA SUPERVISOR notes Addendum: 01/17/19 at 0914 by HIRO GORDON PT,MG Amended: Links added.
--- NOTE | 2019-01-17 09:15 | NUR ---
CLINICAL ESTHETICIAN Co-Signature: Reviewed patient's chart. Reviewed and approved CLINICAL ESTHETICIAN notes Addendum: 01/17/19 at 0915 by HIRO GORDON PT,MG Amended: Links added.
--- NOTE | 2019-01-17 10:15 | NUR ---
RECEIVED PATIENT IN BED AWAKE.. NO RESPIRATORY DISTRESS SET UP BREAKFAST TRAY AND WARMED FEED HIMSELF.. ATE 100% FOLLOWING ASPIRATIONS PRECAUTIONS... ELEVATED BILATERAL LEGS ON PILLOW BUT, REFUSE TO KEEP LEGS ON PILLOW NOTED WILL CONTINUE TO MONITOR ... NO ACUTE DISTRESS./ CALL LIGHT IN REACH
[2019-01-17 12:00] VITALS: BP 153/77
--- NOTE | 2019-01-17 12:35 | Pulmonology Progress Note ---
Assessment/Plan Problems: (1) Cellulitis (2) Severe anemia (3) Hypertension (4) UTI (urinary tract infection) (5) Schizoaffective disorder (6) Diabetes (7) History of CVA (cerebrovascular accident) Assessment/Plan all reviewed doing better, no new complains in better spirit symptomatic treatment respiratory treatment dvt prophylaxis. Subjective ROS Limited/Unobtainable: No Allergies: Coded Allergies: THIORIDAZINE (Unverified Allergy, Mild, HIVES, 04/06/15) PENICILLIN (Unverified Allergy, Unknown, 06/15/15) PENICILLINS (Unverified Allergy, Unknown, 11/24/17) Objective Last 24 Hour Vital Signs Date Time Temp Pulse Resp B/P (MAP) Pulse Ox O2 Delivery O2 Flow Rate FiO2 01/17/19 09:39 Room Air Room Air 01/17/19 08:25 99 146/76 01/17/19 08:24 99 146/76 01/17/19 08:00 98.5 99 18 146/76 (99) 98 01/17/19 04:00 98.3 98 20 157/87 (110) 97 01/17/19 00:00 97.3 88 18 150/76 (100) 97 01/16/19 21:02 105 129/72 01/16/19 21:00 Room Air Room Air 01/16/19 20:00 97.3 93 18 129/72 (91) 96 01/16/19 16:00 97.6 100 20 144/82 (102) 98 Intake and Output 01/16/19 01/17/19 19:00 07:00 Intake Total 1280 ml 1100 ml Output Total 1050 ml Balance 1280 ml 50 ml Intake Oral 480 ml IV Total 800 ml 1100 ml Output Urine Total 1050 ml # Voids 4 Objective General Appearance: WD/WN Lines, tubes and drains: peripheral HEENT: normocephalic, atraumatic Neck: non-tender, supple Respiratory/Chest: chest wall non-tender, lungs clear Breasts: no masses Cardiovascular/Chest: normal rate, no JVD Abdomen: normal bowel sounds Genitourinary/Rectal: normal genital exam, heme negative stool Extremities: normal range of motion, non-tender Skin Exam: normal pigmentation Neurologic: head golf professional II-XII 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 Laboratory Tests 01/17/19 04:58: White Blood Count 7.9, Red Blood Count 3.74L, Hemoglobin 10.7L, Hematocrit 33.0L , Mean Corpuscular Volume 88, Mean Corpuscular Hemoglobin 28.7, Mean Corpuscular Hemoglobin Concent 32.5, Red Cell Distribution Width 13.4, Platelet Count 256, Mean Platelet Volume 7.7, Neutrophils (%) (Auto) 62.3, Lymphocytes (% ) (Auto) 19.8L, Monocytes (%) (Auto) 12.4H, Eosinophils (%) (Auto) 4.3H, Basophils (%) (Auto) 1.2, Sodium Level 137, Potassium Level 3.9, Chloride Level 97L, Carbon Dioxide Level 29, Anion Gap 11, Blood Urea Nitrogen 12, Creatinine 1.0, Estimat Glomerular Filtration Rate > 60, Glucose Level 102, Calcium Level 10.7H, Total Bilirubin 0.3, Aspartate Amino Transf (AST/SGOT) 34, Alanine Aminotransferase (ALT/SGPT) 35, Alkaline Phosphatase 164H, Total Protein 9.3H, Albumin 2.3L, Globulin 7.0, Albumin/Globulin Ratio 0.3L Current Medications Medications (Trade) Dose Ordered Sig/Taco Route PRN Reason Start Time Stop Time Status Last Admin Dose Admin Acetaminophen (Tylenol) 650 mg Q4H PRN ORAL fever 12/26/18 19:30 01/25/19 19:29 Amlodipine Besylate (Norvasc) 10 mg DAILY ORAL 12/27/18 09:00 01/26/19 08:59 01/17/19 08:24 Benztropine Mesylate (Cogentin) 1 mg THREE TIMES A DAY ORAL 12/27/18 18:00 01/26/19 17:59 01/17/19 08:22 Clonidine HCl (Catapres Tab) 0.1 mg Q6H PRN ORAL For High Blood Pressure 12/26/18 20:00 01/25/19 19:59 Clopidogrel Bisulfate (Plavix) 75 mg DAILY ORAL 12/27/18 09:00 01/26/19 08:59 01/17/19 08:22 Dextrose (Dextrose 50%) 25 ml Q30M PRN IV Hypoglycemia 12/26/18 19:45 01/25/19 19:33 Dextrose (Dextrose 50%) 50 ml Q30M PRN IV hypoglycemia 12/26/18 19:45 01/25/19 19:44 Dextrose/Sodium Chloride 1,000 ml @ 100 mls/hr Q10H IV 01/14/19 08:30 02/13/19 08:29 01/17/19 04:02 Divalproex Sodium (Depakote) 250 mg Q12HR ORAL 12/26/18 21:00 01/25/19 20:59 01/17/19 08:23 Gabapentin (Neurontin) 300 mg THREE TIMES A DAY ORAL 12/27/18 09:00 01/26/19 08:59 01/17/19 08:24 Haloperidol (Haldol) 5 mg TID ORAL 12/27/18 18:00 01/26/19 17:59 01/17/19 08:24 Heparin Sodium (Porcine) (Heparin 5000 units/ml) 5,000 units EVERY 12 HOURS SUBQ 12/26/18 21:00 01/25/19 20:59 01/17/19 08:26 Insulin Aspart (NovoLOG) BEFORE MEALS AND HS SUBQ 12/26/18 21:00 01/25/19 20:59 01/16/19 21:10 Magnesium Hydroxide (Mom) 30 ml DAILYPRN PRN ORAL Constipation 12/26/18 20:00 01/25/19 19:59 01/07/19 13:30 Metoprolol Tartrate (Lopressor) 50 mg Q12HR ORAL 01/17/19 09:00 02/16/19 08:59 01/17/19 08:25 Nitroglycerin (Ntg) 0.4 mg Q5M PRN SL Prn Chest Pain 12/26/18 19:30 01/25/19 19:29 01/01/19 15:18 Ondansetron HCl (Zofran) 4 mg Q6H PRN IVP Nausea & Vomiting 12/26/18 19:30 01/25/19 19:29 12/29/18 09:04 Pantoprazole (Protonix) 40 mg DAILY ORAL 12/27/18 09:00 01/26/19 08:59 01/17/19 08:23 Paroxetine HCl (Paxil) 30 mg DAILY ORAL 12/27/18 09:00 01/26/19 08:59 01/17/19 08:23 Polyethylene Glycol (Miralax) 17 gm DAILYPRN PRN ORAL Constipation 12/26/18 20:00 01/25/19 19:29 Quetiapine Fumarate (SEROquel) 100 mg THREE TIMES A DAY ORAL 12/27/18 09:00 01/26/19 08:59 01/17/19 08:23 Tamsulosin HCl (Flomax) 0.4 mg BEDTIME ORAL 12/26/18 21:00 01/25/19 20:59 01/16/19 21:02 Trazodone HCl (Desyrel) 100 mg BEDTIME ORAL 12/26/18 21:00 01/25/19 20:59 01/16/19 21:02 Vanesa Skinner MD Jan 17, 2019 12:35
--- NOTE | 2019-01-17 13:36 | Infectious Diseases Prog Note ---
Assessment/Plan Assessment/Plan Assessment: L ankle ulcer- mild gavin wound cellulitis;ulcer itself not infected Wnd : Morg. M , StrpGrpG, cantor S PsA( colonizers ) -Xray ankle: No definite acute bony process. Possible lateral soft tissue irregularity-correlate with clinical findings -Bcx neg Afebrile Mild leukocytosis; recurrent, resolved -01/12 u/a neg CXR: 1. A triangular opacity overlies the lateral aspect of the right lower lung. This may represent overlapping soft tissue however cannot exclude underlying airspace disease/pneumonia. Recommend correlation with a lateral view. Mildly increased interstitial markings. This is nonspecific but may suggest mild bronchitis or interstitial pneumonitis. DM2 HTN COPD SNF resident Plan: -Continue to monitor off abx as he is clinically stable -01/03 SP Doxycycline #7 IV Vancomycin #3 12/28 -s/p IV Vancomycin x1 12/26 -Monitor CBC/CMP, temperatures -wound care per surgical team. Subjective Allergies: Coded Allergies: THIORIDAZINE (Unverified Allergy, Mild, HIVES, 04/06/15) PENICILLIN (Unverified Allergy, Unknown, 06/15/15) PENICILLINS (Unverified Allergy, Unknown, 11/24/17) Subjective afebrile mild leukocytosis resolved off abx discharge planning Objective Vital Signs Last 24 Hour Vital Signs Date Time Temp Pulse Resp B/P (MAP) Pulse Ox O2 Delivery O2 Flow Rate FiO2 01/17/19 12:00 98.5 81 153/77 (102) 01/17/19 09:39 Room Air Room Air 01/17/19 08:25 99 146/76 01/17/19 08:24 99 146/76 01/17/19 08:00 98.5 99 18 146/76 (99) 98 01/17/19 04:00 98.3 98 20 157/87 (110) 97 01/17/19 00:00 97.3 88 18 150/76 (100) 97 01/16/19 21:02 105 129/72 01/16/19 21:00 Room Air Room Air 01/16/19 20:00 97.3 93 18 129/72 (91) 96 01/16/19 16:00 97.6 100 20 144/82 (102) 98 Height (Feet): 5 Height (Inches): 10.00 Weight (Pounds): 126 Objective General Appearance: no apparent distress, alert, non-toxic HEENT: normocephalic, atraumatic bilateral eye PERRL, normal pharynx Neck: full range of motion, supple/symm/no masses Respiratory: chest non-tender, lungs clear, normal breath sounds, speaking full sentences Cardiovascular : regular rate, rhythm, no edema Gastrointestinal: normal bowel sounds, non tender, soft, non-distended, no guarding, no rebound Genitourinary: normal inspection, no CVA tenderness Musculoskeletal: back normal, gait/station normal, normal range of motion, non- tender Neurologic: alert, oriented x3, responsive, motor strength/tone normal, sensory intact, speech normal Psychiatric: judgement/insight normal, memory normal, mood/affect normal, no suicidal/homicidal ideation Skin: other - large ulcer to L ankle. surrounding erythema/induration Laboratory Tests Test 01/17/19 04:58 White Blood Count 7.9 K/UL (4.8-10.8) Red Blood Count 3.74 M/UL (4.70-6.10) L Hemoglobin 10.7 G/DL (14.2-18.0) L Hematocrit 33.0 % (42.0-52.0) L Mean Corpuscular Volume 88 FL (80-99) Mean Corpuscular Hemoglobin 28.7 PG (27.0-31.0) Mean Corpuscular Hemoglobin Concent 32.5 G/DL (32.0-36.0) Red Cell Distribution Width 13.4 % (11.6-14.8) Platelet Count 256 K/UL (150-450) Mean Platelet Volume 7.7 FL (6.5-10.1) Neutrophils (%) (Auto) 62.3 % (45.0-75.0) Lymphocytes (%) (Auto) 19.8 % (20.0-45.0) L Monocytes (%) (Auto) 12.4 % (1.0-10.0) H Eosinophils (%) (Auto) 4.3 % (0.0-3.0) H Basophils (%) (Auto) 1.2 % (0.0-2.0) Sodium Level 137 MMOL/L (136-145) Potassium Level 3.9 MMOL/L (3.5-5.1) Chloride Level 97 MMOL/L (98-107) L Carbon Dioxide Level 29 MMOL/L (21-32) Anion Gap 11 mmol/L (5-15) Blood Urea Nitrogen 12 mg/dL (7-18) Creatinine 1.0 MG/DL (0.55-1.30) Estimat Glomerular Filtration Rate > 60 mL/min (>60) Glucose Level 102 MG/DL (74-106) Calcium Level 10.7 MG/DL (8.5-10.1) H Total Bilirubin 0.3 MG/DL (0.2-1.0) Aspartate Amino Transf (AST/SGOT) 34 U/L (15-37) Alanine Aminotransferase (ALT/SGPT) 35 U/L (12-78) Alkaline Phosphatase 164 U/L (46-116) H Total Protein 9.3 G/DL (6.4-8.2) H Albumin 2.3 G/DL (3.4-5.0) L Globulin 7.0 g/dL Albumin/Globulin Ratio 0.3 (1.0-2.7) L Current Medications Medications (Trade) Dose Ordered Sig/Taco Route PRN Reason Start Time Stop Time Status Last Admin Dose Admin Acetaminophen (Tylenol) 650 mg Q4H PRN ORAL fever 12/26/18 19:30 01/25/19 19:29 Amlodipine Besylate (Norvasc) 10 mg DAILY ORAL 12/27/18 09:00 01/26/19 08:59 01/17/19 08:24 Benztropine Mesylate (Cogentin) 1 mg THREE TIMES A DAY ORAL 12/27/18 18:00 01/26/19 17:59 01/17/19 08:22 Clonidine HCl (Catapres Tab) 0.1 mg Q6H PRN ORAL For High Blood Pressure 12/26/18 20:00 01/25/19 19:59 Clopidogrel Bisulfate (Plavix) 75 mg DAILY ORAL 12/27/18 09:00 01/26/19 08:59 01/17/19 08:22 Dextrose (Dextrose 50%) 25 ml Q30M PRN IV Hypoglycemia 12/26/18 19:45 01/25/19 19:33 Dextrose (Dextrose 50%) 50 ml Q30M PRN IV hypoglycemia 12/26/18 19:45 01/25/19 19:44 Dextrose/Sodium Chloride 1,000 ml @ 100 mls/hr Q10H IV 01/14/19 08:30 02/13/19 08:29 01/17/19 04:02 Divalproex Sodium (Depakote) 250 mg Q12HR ORAL 12/26/18 21:00 01/25/19 20:59 01/17/19 08:23 Gabapentin (Neurontin) 300 mg THREE TIMES A DAY ORAL 12/27/18 09:00 01/26/19 08:59 01/17/19 08:24 Haloperidol (Haldol) 5 mg TID ORAL 12/27/18 18:00 01/26/19 17:59 01/17/19 08:24 Heparin Sodium (Porcine) (Heparin 5000 units/ml) 5,000 units EVERY 12 HOURS SUBQ 12/26/18 21:00 01/25/19 20:59 01/17/19 08:26 Insulin Aspart (NovoLOG) BEFORE MEALS AND HS SUBQ 12/26/18 21:00 01/25/19 20:59 01/16/19 21:10 Magnesium Hydroxide (Mom) 30 ml DAILYPRN PRN ORAL Constipation 12/26/18 20:00 01/25/19 19:59 01/07/19 13:30 Metoprolol Tartrate (Lopressor) 50 mg Q12HR ORAL 01/17/19 09:00 02/16/19 08:59 01/17/19 08:25 Nitroglycerin (Ntg) 0.4 mg Q5M PRN SL Prn Chest Pain 12/26/18 19:30 01/25/19 19:29 01/01/19 15:18 Ondansetron HCl (Zofran) 4 mg Q6H PRN IVP Nausea & Vomiting 12/26/18 19:30 01/25/19 19:29 12/29/18 09:04 Pantoprazole (Protonix) 40 mg DAILY ORAL 12/27/18 09:00 01/26/19 08:59 01/17/19 08:23 Paroxetine HCl (Paxil) 30 mg DAILY ORAL 12/27/18 09:00 01/26/19 08:59 01/17/19 08:23 Polyethylene Glycol (Miralax) 17 gm DAILYPRN PRN ORAL Constipation 12/26/18 20:00 01/25/19 19:29 Quetiapine Fumarate (SEROquel) 100 mg THREE TIMES A DAY ORAL 12/27/18 09:00 01/26/19 08:59 01/17/19 08:23 Tamsulosin HCl (Flomax) 0.4 mg BEDTIME ORAL 12/26/18 21:00 01/25/19 20:59 01/16/19 21:02 Trazodone HCl (Desyrel) 100 mg BEDTIME ORAL 12/26/18 21:00 01/25/19 20:59 01/16/19 21:02 Mireya Campos M.D. Jan 17, 2019 13:36
--- NOTE | 2019-01-17 14:05 | Surgery Progress Note ---
Surgery Progress Note Subjective Additional Comments no acute events. comfortable. no n/v/f/c. labs noted. exam unchanged Objective Last 24 Hour Vital Signs Date Time Temp Pulse Resp B/P (MAP) Pulse Ox O2 Delivery O2 Flow Rate FiO2 01/17/19 12:00 98.5 81 153/77 (102) 01/17/19 09:39 Room Air Room Air 01/17/19 08:25 99 146/76 01/17/19 08:24 99 146/76 01/17/19 08:00 98.5 99 18 146/76 (99) 98 01/17/19 04:00 98.3 98 20 157/87 (110) 97 01/17/19 00:00 97.3 88 18 150/76 (100) 97 01/16/19 21:02 105 129/72 01/16/19 21:00 Room Air Room Air 01/16/19 20:00 97.3 93 18 129/72 (91) 96 01/16/19 16:00 97.6 100 20 144/82 (102) 98 I&O Intake and Output 01/16/19 01/17/19 18:59 06:59 Intake Total 1380 ml 1100 ml Output Total 1050 ml Balance 1380 ml 50 ml Intake Oral 480 ml IV Total 900 ml 1100 ml Output Urine Total 1050 ml # Voids 4 Dressing: saturated Wound: other Drains: other Cardiovascular: RSR Respiratory: clear Abdomen: soft, non-tender, present bowel sounds, non-distended Extremities: tenderness, cyanosis Laboratory Tests Test 01/17/19 04:58 White Blood Count 7.9 K/UL (4.8-10.8) Red Blood Count 3.74 M/UL (4.70-6.10) L Hemoglobin 10.7 G/DL (14.2-18.0) L Hematocrit 33.0 % (42.0-52.0) L Mean Corpuscular Volume 88 FL (80-99) Mean Corpuscular Hemoglobin 28.7 PG (27.0-31.0) Mean Corpuscular Hemoglobin Concent 32.5 G/DL (32.0-36.0) Red Cell Distribution Width 13.4 % (11.6-14.8) Platelet Count 256 K/UL (150-450) Mean Platelet Volume 7.7 FL (6.5-10.1) Neutrophils (%) (Auto) 62.3 % (45.0-75.0) Lymphocytes (%) (Auto) 19.8 % (20.0-45.0) L Monocytes (%) (Auto) 12.4 % (1.0-10.0) H Eosinophils (%) (Auto) 4.3 % (0.0-3.0) H Basophils (%) (Auto) 1.2 % (0.0-2.0) Sodium Level 137 MMOL/L (136-145) Potassium Level 3.9 MMOL/L (3.5-5.1) Chloride Level 97 MMOL/L (98-107) L Carbon Dioxide Level 29 MMOL/L (21-32) Anion Gap 11 mmol/L (5-15) Blood Urea Nitrogen 12 mg/dL (7-18) Creatinine 1.0 MG/DL (0.55-1.30) Estimat Glomerular Filtration Rate > 60 mL/min (>60) Glucose Level 102 MG/DL (74-106) Calcium Level 10.7 MG/DL (8.5-10.1) H Total Bilirubin 0.3 MG/DL (0.2-1.0) Aspartate Amino Transf (AST/SGOT) 34 U/L (15-37) Alanine Aminotransferase (ALT/SGPT) 35 U/L (12-78) Alkaline Phosphatase 164 U/L (46-116) H Total Protein 9.3 G/DL (6.4-8.2) H Albumin 2.3 G/DL (3.4-5.0) L Globulin 7.0 g/dL Albumin/Globulin Ratio 0.3 (1.0-2.7) L Plan Problems: (1) Ulcer of left ankle Assessment & Plan: large chronic left ankle ulceration near circumferential on left ankle. full thickness with eschar on some areas and some areas of granulation tissue. no drainage. no fluctuance. tender, periwound okay. pulses diminished. calf okay. foot with decreased cap refill. please see photos Plain films noted venous duplex without dvt and patent. labs noted long discussion about wound and leg with patient. states he has no intention of having debridement, grafting, or amputation at anytime. will now allow wound to be cleaned properly. will only allow for dressing to be changed. spoke with patient and he still very firm with his decision. -wash left ankle daily with NS. apply xeroform to wound, ABD, and wrap with kerlix -okay to d/c from surgical standpoint -outpatient wound care follow up thank you will follow with recs. (2) Failure to thrive in adult Assessment & Plan: DAILY ESTIMATED NEEDS: Needs based on wounds, DM 70.5kg 25-35 kcals/kg 5845-0561 total kcals 1.25-1.5 g protein/kg 88-106 g total protein 25-30 mL/kg 1906-5436 total fluid mLs NUTRITION DIAGNOSIS: 1) Increased protein needs r/t wound healing as evidenced by pt with L-ankle full thickness ulcer 2) Altered nutrition related lab values r/t renal dysfunction pending workup as evidenced by elev K (6.0-> 5.6), elev BUN (66, trending up), elev Creat (1.6). CURRENT DIET: CCHO MED PO DIET RECOMMENDATIONS: RENAL DIET + DOUBLE PROTIONS + NEPRO 1 TETRA ABRAM DAILY ADDITIONAL RECOMMENDATIONS: 1) calibrated bed scale wts (Per SNF: 155#) 2) WOUND CARE: add YUNI BID + VIT C 500mg BID + MVI x1 3) Monitor po intake -> pt on multiple psych meds, may alter appetite -> Varibale intake, rec Glucerna daily 4) Add HS snack to prevent hypoglycemia in the AM. 5) REC DIET CHANGE TO RENAL / SOFT EASY CHEW + NEPRO Devon Sullivan Jan 17, 2019 14:05
--- NOTE | 2019-01-17 14:35 | General Progress Note ---
Assessment/Plan Problem List: (1) History of CVA (cerebrovascular accident) ICD Codes: Z86.73 - Personal history of transient ischemic attack (TIA), and cerebral infarction without residual deficits SNOMED: 363475731 (2) Cellulitis ICD Codes: L03.90 - Cellulitis, unspecified SNOMED: 588125290 (3) Anemia ICD Codes: D64.9 - Anemia SNOMED: 138390919 (4) Diabetes ICD Codes: E11.9 - Diabetes SNOMED: 25536654 (5) Hypertension ICD Codes: I10 - Hypertension SNOMED: 00144447 (6) Failure to thrive in adult ICD Codes: R62.7 - Adult failure to thrive SNOMED: 225916844 (7) Ulcer of left ankle ICD Codes: L97.329 - Non-pressure chronic ulcer of left ankle with unspecified severity SNOMED: 191439296, 98712527 Qualifiers: Qualified Codes: L97.322 - Non-pressure chronic ulcer of left ankle with fat layer exposed Status: unchanged Assessment/Plan wound care abx pain control dc to [facility] Subjective Constitutional: Reports: weakness Allergies: Coded Allergies: THIORIDAZINE (Unverified Allergy, Mild, HIVES, 04/06/15) PENICILLIN (Unverified Allergy, Unknown, 06/15/15) PENICILLINS (Unverified Allergy, Unknown, 11/24/17) All Systems: reviewed and negative except above Subjective sleepy calm Objective Last 24 Hour Vital Signs Date Time Temp Pulse Resp B/P (MAP) Pulse Ox O2 Delivery O2 Flow Rate FiO2 01/17/19 12:00 98.5 81 153/77 (102) 01/17/19 09:39 Room Air Room Air 01/17/19 08:25 99 146/76 01/17/19 08:24 99 146/76 01/17/19 08:00 98.5 99 18 146/76 (99) 98 01/17/19 04:00 98.3 98 20 157/87 (110) 97 01/17/19 00:00 97.3 88 18 150/76 (100) 97 01/16/19 21:02 105 129/72 01/16/19 21:00 Room Air Room Air 01/16/19 20:00 97.3 93 18 129/72 (91) 96 3/20/19 16:00 97.6 100 20 144/82 (102) 98 Intake and Output 01/16/19 01/17/19 18:59 06:59 Intake Total 1380 ml 1100 ml Output Total 1050 ml Balance 1380 ml 50 ml Intake Oral 480 ml IV Total 900 ml 1100 ml Output Urine Total 1050 ml # Voids 4 Laboratory Tests 01/17/19 04:58: White Blood Count 7.9, Red Blood Count 3.74L, Hemoglobin 10.7L, Hematocrit 33.0L , Mean Corpuscular Volume 88, Mean Corpuscular Hemoglobin 28.7, Mean Corpuscular Hemoglobin Concent 32.5, Red Cell Distribution Width 13.4, Platelet Count 256, Mean Platelet Volume 7.7, Neutrophils (%) (Auto) 62.3, Lymphocytes (% ) (Auto) 19.8L, Monocytes (%) (Auto) 12.4H, Eosinophils (%) (Auto) 4.3H, Basophils (%) (Auto) 1.2, Sodium Level 137, Potassium Level 3.9, Chloride Level 97L, Carbon Dioxide Level 29, Anion Gap 11, Blood Urea Nitrogen 12, Creatinine 1.0, Estimat Glomerular Filtration Rate > 60, Glucose Level 102, Calcium Level 10.7H, Total Bilirubin 0.3, Aspartate Amino Transf (AST/SGOT) 34, Alanine Aminotransferase (ALT/SGPT) 35, Alkaline Phosphatase 164H, Total Protein 9.3H, Albumin 2.3L, Globulin 7.0, Albumin/Globulin Ratio 0.3L Height (Feet): 5 Height (Inches): 10.00 Weight (Pounds): 126 General Appearance: lethargic EENT: normal ENT inspection Neck: normal alignment Cardiovascular: normal peripheral pulses, normal rate, regular rhythm Respiratory/Chest: chest wall non-tender, lungs clear, normal breath sounds Abdomen: normal bowel sounds, non tender, soft Extremities: normal inspection Edema: no edema noted Arm (L), no edema noted Arm (R), no edema noted Leg (L), no edema noted Leg (R), no edema noted Pedal (L), no edema noted Pedal (R), no edema noted Generalized Neurologic: motor weakness Skin: normal pigmentation, warm/dry Objective foot dressing c&d Jarek Gonzalez DO Jan 17, 2019 14:35
[2019-01-17] MEDS ORDERED: D5 1/2NS 1000ml IV ONE (14:36)
[2019-01-17 16:00] VITALS: BP 124/84
--- NOTE | 2019-01-17 17:35 | NUR ---
CHANGED DRESSING ON LEFT FOOT... PATIENT REMOVED CONDOM CATHETER X2 NOTED PATIENT IS COMBATIVE AT TIMES . STAFF MEMBERS HAVE TO HOLD PATIENT HANDS DUE TO FIGHTING STAFF.. CALL LIGHT INR EACHL
--- NOTE | 2019-01-17 19:15 | Progress Note ---
DATE: 01/17/2019 SUBJECTIVE: The patient is a 68-year-old male patient, still very depressed and confused, mood labile. He has got a lot of mood lability, worsened by stress of his medical illness. MENTAL STATUS EXAMINATION: This is a 68-year-old male. Appearance is disheveled. Attitude, irritable and agitated. Affect, guarded and restricted. Intellect poor. Mood depressed and anxious. Motor activity, psychomotor agitation. Attention span is poor. Orientation x2. Speech is pressured. Thought process, disorganized and illogical. Insight and judgment is poor. DIAGNOSIS: Schizoaffective, bipolar type. PLAN: Treat with Haldol 10 mg three times a day, Cogentin 1 mg 3 times a day, Seroquel 100 mg three times a day, Paxil 30 mg daily, Neurontin 300 mg three times a day and then also . Provided him with 20 minutes of cognitive behavioral therapy to help him identify his automatic negative thoughts and help him to convert those negative thoughts to more positive thoughts to reduce depression, anxiety, and suicidality. Chart was reviewed. Discussed with staff. Seen and assessed at bedside. Uziel Collado M.D. DR: Sandra JOB#: [id number] CC:
--- NOTE | 2019-01-17 20:00 | NUR ---
NURSE NOTES: Received patient comfortably sleeping.Kept clean and dry.
[2019-01-17 20:19] VITALS: BP 132/72
[2019-01-17] MEDS: TraZODone 100mg tab ORAL SCH (20:30)
[2019-01-17] MEDS: Tamsulosin 0.4mg cap ORAL SCH (20:31)
[2019-01-18] VITALS: BP 142/78
[2019-01-18 04:00] VITALS: BP 128/70
[2019-01-18] MEDS: D5 1/2NS 1,000 ML IV SCH ×2 (04:53→12:30)
[2019-01-18] MEDS: NovoLOG Insulin Flexpen SUBQ SCH ×2 (06:30→11:30)
--- NOTE | 2019-01-18 07:24 | NUR ---
HAND-OFF: Report given to Marline Ashley LVN.
[2019-01-18 08:00] VITALS: BP 114/66
--- NOTE | 2019-01-18 08:00 | NUR ---
RECEIVED PATIENT IN BED ASLEEP, NO DISTRESS OR SOB PATIENT IS STABLE... DENIES NO PAIN OR DISCOMFORT.. WILL CONTINUE TO MONITOR FOR ANY DISTRESS.. CALL LIGHT IN REACH
[2019-01-18] MEDS: Benztropine 1mg tab ORAL SCH ×2 (08:29→12:45)
[2019-01-18] MEDS: PARoxetine 10mg tab ORAL SCH (08:30)
[2019-01-18] MEDS: Metoprolol 25mg tab ORAL SCH (08:34)
[2019-01-18] MEDS: Heparin 5000 units/ml inj SUBQ SCH (08:38)
--- NOTE | 2019-01-18 09:45 | NUR ---
Social Service Note Additional information faxed to LALY at [facility] [phone] (f) [phone] (p). Confirmed faxed was received. LALY is working on bed assignment. Will follow up.
--- NOTE | 2019-01-18 10:31 | NUR ---
PATIENT RESTING COMFORTABLE AWAITING ON [facility]ULT [facility]KER REGARDING DISCHARGE PLANS NOTED PATIENT IS OFFICIALLY DISCHARGE PER M.D
--- NOTE | 2019-01-18 11:08 | NUR ---
Social Service Note Patient accepted at [facility] [address] [place] [address]. Room 210-C. Nurse to call report [phone]. No family listed to notify. Ambulance arranged with [employer] [phone] picker and sorter load and unload time 1500. Charge nurse notified.
[2019-01-18 12:00] VITALS: BP 116/71
--- NOTE | 2019-01-18 13:26 | General Progress Note ---
Assessment/Plan Problem List: (1) History of CVA (cerebrovascular accident) ICD Codes: Z86.73 - Personal history of transient ischemic attack (TIA), and cerebral infarction without residual deficits SNOMED: 511249606 (2) Cellulitis ICD Codes: L03.90 - Cellulitis, unspecified SNOMED: 654222048 (3) Anemia ICD Codes: D64.9 - Anemia SNOMED: 834346135 (4) Diabetes ICD Codes: E11.9 - Diabetes SNOMED: 98970408 (5) Hypertension ICD Codes: I10 - Hypertension SNOMED: 95031471 (6) Failure to thrive in adult ICD Codes: R62.7 - Adult failure to thrive SNOMED: 752703513 (7) Ulcer of left ankle ICD Codes: L97.329 - Non-pressure chronic ulcer of left ankle with unspecified severity SNOMED: 495587331, 73166579 Qualifiers: Qualified Codes: L97.322 - Non-pressure chronic ulcer of left ankle with fat layer exposed Status: unchanged Assessment/Plan wound care abx pain control cbc bmp am dc to [facility] ltach Subjective Constitutional: Reports: weakness Allergies: Coded Allergies: THIORIDAZINE (Unverified Allergy, Mild, HIVES, 04/06/15) PENICILLIN (Unverified Allergy, Unknown, 06/15/15) PENICILLINS (Unverified Allergy, Unknown, 11/24/17) All Systems: reviewed and negative except above Subjective sleepy calm Objective Last 24 Hour Vital Signs Date Time Temp Pulse Resp B/P (MAP) Pulse Ox O2 Delivery O2 Flow Rate FiO2 01/18/19 09:00 Room Air Room Air 01/18/19 08:34 108 114/66 01/18/19 08:33 108 114/66 01/18/19 08:00 98.0 20 114/66 (82) 97 01/18/19 04:00 97.6 89 18 128/70 (89) 96 01/18/19 00:00 97.3 90 18 142/78 (99) 94 01/17/19 21:02 Room Air Room Air 01/17/19 20:31 92 132/72 01/17/19 20:19 97.7 92 16 132/72 (92) 94 01/17/19 16:00 98.3 20 124/84 (97) 97 Intake and Output 01/17/19 01/18/19 18:59 06:59 Intake Total 1040 ml 1100 ml Output Total 350 ml Balance 690 ml 1100 ml Intake Oral 240 ml IV Total 800 ml 1100 ml Output Urine Total 350 ml # Voids 2 1 Height (Feet): 5 Height (Inches): 10.00 Weight (Pounds): 126 General Appearance: lethargic EENT: normal ENT inspection Neck: normal alignment Cardiovascular: normal rate Respiratory/Chest: chest wall non-tender, lungs clear, normal breath sounds Abdomen: normal bowel sounds, non tender, soft Extremities: normal inspection Edema: no edema noted Arm (L), no edema noted Arm (R), no edema noted Leg (L), no edema noted Leg (R), no edema noted Pedal (L), no edema noted Pedal (R), no edema noted Generalized Neurologic: motor weakness Skin: normal pigmentation, warm/dry Objective foot dressing c&d Jarek Gonzalez DO Jan 18, 2019 13:26
--- NOTE | 2019-01-18 14:07 | Pulmonology Progress Note ---
Assessment/Plan Problems: (1) Cellulitis (2) Severe anemia (3) Hypertension (4) UTI (urinary tract infection) (5) Schizoaffective disorder (6) Diabetes (7) History of CVA (cerebrovascular accident) Assessment/Plan all reviewed doing better, no new complains in better spirit symptomatic treatment respiratory treatment dvt prophylaxis. Subjective ROS Limited/Unobtainable: No Allergies: Coded Allergies: THIORIDAZINE (Unverified Allergy, Mild, HIVES, 04/06/15) PENICILLIN (Unverified Allergy, Unknown, 06/15/15) PENICILLINS (Unverified Allergy, Unknown, 11/24/17) Objective Last 24 Hour Vital Signs Date Time Temp Pulse Resp B/P (MAP) Pulse Ox O2 Delivery O2 Flow Rate FiO2 01/18/19 09:00 Room Air Room Air 01/18/19 08:34 108 114/66 01/18/19 08:33 108 114/66 01/18/19 08:00 98.0 20 114/66 (82) 97 01/18/19 04:00 97.6 89 18 128/70 (89) 96 01/18/19 00:00 97.3 90 18 142/78 (99) 94 01/17/19 21:02 Room Air Room Air 01/17/19 20:31 92 132/72 01/17/19 20:19 97.7 92 16 132/72 (92) 94 01/17/19 16:00 98.3 20 124/84 (97) 97 Intake and Output 01/17/19 01/18/19 19:00 07:00 Intake Total 1140 ml 1100 ml Output Total 350 ml Balance 790 ml 1100 ml Intake Oral 240 ml IV Total 900 ml 1100 ml Output Urine Total 350 ml # Voids 2 1 Objective General Appearance: WD/WN Lines, tubes and drains: peripheral HEENT: normocephalic, atraumatic Neck: non-tender, supple Respiratory/Chest: chest wall non-tender, lungs clear Breasts: no masses Cardiovascular/Chest: normal rate, no JVD Abdomen: normal bowel sounds Genitourinary/Rectal: normal genital exam, heme negative stool Extremities: normal range of motion, non-tender Skin Exam: normal pigmentation Neurologic: online journalist II-XII 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 Current Medications Medications (Trade) Dose Ordered Sig/Taco Route PRN Reason Start Time Stop Time Status Last Admin Dose Admin Acetaminophen (Tylenol) 650 mg Q4H PRN ORAL fever 12/26/18 19:30 01/25/19 19:29 Amlodipine Besylate (Norvasc) 10 mg DAILY ORAL 12/27/18 09:00 01/26/19 08:59 01/18/19 08:33 Benztropine Mesylate (Cogentin) 1 mg THREE TIMES A DAY ORAL 12/27/18 18:00 01/26/19 17:59 01/18/19 12:45 Clonidine HCl (Catapres Tab) 0.1 mg Q6H PRN ORAL For High Blood Pressure 12/26/18 20:00 01/25/19 19:59 Clopidogrel Bisulfate (Plavix) 75 mg DAILY ORAL 12/27/18 09:00 01/26/19 08:59 01/18/19 08:30 Dextrose (Dextrose 50%) 25 ml Q30M PRN IV Hypoglycemia 12/26/18 19:45 01/25/19 19:33 Dextrose (Dextrose 50%) 50 ml Q30M PRN IV hypoglycemia 12/26/18 19:45 01/25/19 19:44 Dextrose/Sodium Chloride 1,000 ml @ 100 mls/hr Q10H IV 01/14/19 08:30 02/13/19 08:29 01/18/19 04:53 Divalproex Sodium (Depakote) 250 mg Q12HR ORAL 12/26/18 21:00 01/25/19 20:59 01/18/19 08:29 Gabapentin (Neurontin) 300 mg THREE TIMES A DAY ORAL 12/27/18 09:00 01/26/19 08:59 01/18/19 12:45 Haloperidol (Haldol) 5 mg TID ORAL 12/27/18 18:00 01/26/19 17:59 01/18/19 12:45 Heparin Sodium (Porcine) (Heparin 5000 units/ml) 5,000 units EVERY 12 HOURS SUBQ 12/26/18 21:00 01/25/19 20:59 01/18/19 08:38 Insulin Aspart (NovoLOG) BEFORE MEALS AND HS SUBQ 12/26/18 21:00 01/25/19 20:59 01/17/19 20:32 Magnesium Hydroxide (Mom) 30 ml DAILYPRN PRN ORAL Constipation 12/26/18 20:00 01/25/19 19:59 01/07/19 13:30 Metoprolol Tartrate (Lopressor) 50 mg Q12HR ORAL 01/17/19 09:00 02/16/19 08:59 01/18/19 08:34 Nitroglycerin (Ntg) 0.4 mg Q5M PRN SL Prn Chest Pain 12/26/18 19:30 01/25/19 19:29 01/01/19 15:18 Ondansetron HCl (Zofran) 4 mg Q6H PRN IVP Nausea & Vomiting 12/26/18 19:30 01/25/19 19:29 12/29/18 09:04 Pantoprazole (Protonix) 40 mg DAILY ORAL 12/27/18 09:00 01/26/19 08:59 01/18/19 08:30 Paroxetine HCl (Paxil) 30 mg DAILY ORAL 12/27/18 09:00 01/26/19 08:59 01/18/19 08:30 Polyethylene Glycol (Miralax) 17 gm DAILYPRN PRN ORAL Constipation 12/26/18 20:00 01/25/19 19:29 Quetiapine Fumarate (SEROquel) 100 mg THREE TIMES A DAY ORAL 12/27/18 09:00 01/26/19 08:59 01/18/19 12:45 Tamsulosin HCl (Flomax) 0.4 mg BEDTIME ORAL 12/26/18 21:00 01/25/19 20:59 01/17/19 20:31 Trazodone HCl (Desyrel) 100 mg BEDTIME ORAL 12/26/18 21:00 01/25/19 20:59 01/17/19 20:30 Vanesa Skinner MD Jan 18, 2019 14:07
--- NOTE | 2019-01-18 15:02 | NUR ---
D/C'D HEP LOCK AND DRESSED APPLIED TAPE.. GAVE ALL BELONGING TO AMBULANCE PERSONNEL REPORT GIVEN TO PEDRO ESPINOZA .AT [facility] ROOM 210C
--- NOTE | 2019-01-18 15:05 | NUR ---
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
--- NOTE | 2019-01-18 15:11 | Surgery Progress Note ---
Surgery Progress Note Subjective Additional Comments no acute events. pending placement. possible ltach soon Objective Last 24 Hour Vital Signs Date Time Temp Pulse Resp B/P (MAP) Pulse Ox O2 Delivery O2 Flow Rate FiO2 01/18/19 12:00 97.6 91 18 116/71 (86) 96 01/18/19 09:00 Room Air Room Air 01/18/19 08:34 108 114/66 01/18/19 08:33 108 114/66 01/18/19 08:00 98.0 20 114/66 (82) 97 01/18/19 04:00 97.6 89 18 128/70 (89) 96 01/18/19 00:00 97.3 90 18 142/78 (99) 94 01/17/19 21:02 Room Air Room Air 01/17/19 20:31 92 132/72 01/17/19 20:19 97.7 92 16 132/72 (92) 94 01/17/19 16:00 98.3 20 124/84 (97) 97 I&O Intake and Output 01/17/19 01/18/19 18:59 06:59 Intake Total 1040 ml 1100 ml Output Total 350 ml Balance 690 ml 1100 ml Intake Oral 240 ml IV Total 800 ml 1100 ml Output Urine Total 350 ml # Voids 2 1 Dressing: saturated Wound: other Drains: other Cardiovascular: RSR Respiratory: clear Abdomen: soft, non-tender, present bowel sounds, non-distended Extremities: tenderness, cyanosis Plan Problems: (1) Ulcer of left ankle Assessment & Plan: large chronic left ankle ulceration near circumferential on left ankle. full thickness with eschar on some areas and some areas of granulation tissue. no drainage. no fluctuance. tender, periwound okay. pulses diminished. calf okay. foot with decreased cap refill. please see photos Plain films noted venous duplex without dvt and patent. labs noted long discussion about wound and leg with patient. states he has no intention of having debridement, grafting, or amputation at anytime. will now allow wound to be cleaned properly. will only allow for dressing to be changed. spoke with patient and he still very firm with his decision. -wash left ankle daily with NS. apply xeroform to wound, ABD, and wrap with kerlix -okay to d/c from surgical standpoint -outpatient wound care follow up pending placement possible ltach thank you will follow with recs. (2) Failure to thrive in adult Assessment & Plan: DAILY ESTIMATED NEEDS: Needs based on wounds, DM 70.5kg 25-35 kcals/kg 0555-9418 total kcals 1.25-1.5 g protein/kg 88-106 g total protein 25-30 mL/kg 3875-3648 total fluid mLs NUTRITION DIAGNOSIS: 1) Increased protein needs r/t wound healing as evidenced by pt with L-ankle full thickness ulcer 2) Altered nutrition related lab values r/t renal dysfunction pending workup as evidenced by elev K (6.0-> 5.6), elev BUN (66, trending up), elev Creat (1.6). CURRENT DIET: CCHO MED PO DIET RECOMMENDATIONS: RENAL DIET + DOUBLE PROTIONS + NEPRO 1 TETRA ABRAM DAILY ADDITIONAL RECOMMENDATIONS: 1) calibrated bed scale wts (Per SNF: 155#) 2) WOUND CARE: add YUNI BID + VIT C 500mg BID + MVI x1 3) Monitor po intake -> pt on multiple psych meds, may alter appetite -> Varibale intake, rec Glucerna daily 4) Add HS snack to prevent hypoglycemia in the AM. 5) REC DIET CHANGE TO RENAL / SOFT EASY CHEW + NEPRO Devon Sullivan Jan 18, 2019 15:11
--- NOTE | 2019-01-18 15:16 | NUR ---
PATIENT STABLE WHEN LEFT
--- NOTE | 2019-01-18 17:15 | Progress Note ---
DATE: 01/18/2019 SUBJECTIVE: This is a 68-year-old male with left ankle ulcer, but he has a lot of mood lability, psychosis, altered mental status, and agitation. Mood lability has worsened secondary to stress of his medical illness. That is why, his attending has requested daily psychiatric consultation. DIAGNOSIS: Schizoaffective, bipolar type. PLAN: Treat him with Depakote 250 mg twice a day, Haldol 5 mg three times a day, Seroquel 100 mg three times a day, Paxil 30 mg daily, Neurontin 300 mg three times a day, and also trazodone 100 mg nightly. Provided him with 20 minutes of cognitive behavioral therapy to help him identify his automatic negative thoughts and help him to convert those negative thoughts to more positive thoughts to reduce depression, anxiety, mood lability and to help him have more adaptive behavior. Provided 20 minutes of cognitive therapy. Seen and assessed at bedside. Uziel Collado M.D. DR: MOLINA JOB#: [id number] CC:
--- NOTE | 2019-01-19 00:27 | Cardiology Report ---
APPROVED REPORT EKG Measurement Heart [id number] Normal sinus rhythm Normal ECG
--- NOTE | 2019-01-21 09:34 | Discharge Summary ---
Discharge Summary Discharge Summary _ DATE OF ADMISSION: 12/26/2018 DATE OF DISCHARGE: 01/18/2019 DISCHARGED BY: Dr. Gonzalez REASON FOR ADMISSION: 68 years old male with past medical history of diabetes mellitus, COPD, hypertension, snf resident, presented to emergency department for evaluation of left leg ulcer , which was getting progressively worse. Patient reported nonradiating throbbing pain 10 out of 10. Patient denied fever and chills. Patient denied chest pain or shortness of breath. Upon evaluation in the emergency room vital signs were stable. Laboratory workup revealed leukocytosis with WBC 12.2, anemia with hemoglobin 9.9 ,hematocrit 31.9. Stable electrolytes and renal parameters. Lactic acid 1.8. Patient was admitted for further management for worsening diabetic foot ulcer and cellulitis CONSULTANTS: gang leader Dr. Polo pulmonary Dr. Skinner ID specialist Dr. Wong regional dedicated truck driver Dr. Lee surgery Dr. Sullivan psychiatrist Dr. Collado [facility]: Patient admitted and started on empiric antibiotics. Venous duplex bilateral lower extremity revealed no evidence of acute DVT. Left ankle x-ray revealed no definite acute bony process. Possible lateral soft tissue irregularity. Infectious disease specialist followed. Blood cultures were negative. Wound culture revealed growth of Morganella, Streptococci group G and Pseudomonas aeruginosa. Antibiotics provided as per infectious disease recommendation. Patient completed antibiotic course while in the hospital. Leukocytosis resolved , mild intermittent fevers resolved. Infectious disease doctor recommended to monitor patient off antibiotic and observe closely. Wound care provided as per surgery recommendation. Continue wound care at the half-way facility. Underwear Welter recommendation implemented in plan of care. Gold Blower consulted due to patient complaint of chest pain. No associated shortness of breath, Troponin was negative. EKG revealed sinus rhythm, no acute ischemic changes. Echocardiogram demonstrated preserved ejection fraction of 60% with no evidence of left ventricular hypertrophy. No evidence of pericardial effusion. No evidence of wall motion abnormality. Per gang leader, patient probably have noncardiac chest pain. Patient was continued on antiplatelet therapy with Plavix, statin, and beta- ni. No invasive cardiac workup was recommended by gang leader. Blood pressure was managed with beta-ni, calcium channel ni and JOSH inhibitor. JOSH inhibitor was later later discontinued due to hyperkalemia. Patient noted to have mild sinus tachycardia, which was likely secondary to Cogentin side effects. Gold Blower recommended observe clinically and continue with metoprolol. Supplemental oxygen titrated as needed to keep pulse oximetry above 92%. Pulmonary toilet provided as needed. No signs of respiratory distress. Chest x-ray revealed no acute cardiopulmonary pathology. Visitor Use Assistant followed. Renal parameters and electrolytes were closely monitored. Electrolytes corrected as needed. Nephrotoxic avoided as possible. Hyperkalemia was treated with Kayexalate. Hyperkalemia resolved, and was likely due to JOSH inhibitor. JOSH inhibitor stopped. Potassium prior to discharge 3.9. Patient was provided with low potassium diet. Urine output was closely monitored. Prior to discharge BUN 12 , was 52 during the stay and creatinine 1.0, was 1.7 during the stay. DVT and GI prophylaxis provided. Blood sugar was managed with sliding scale of insulin. Bowel regimen instituted. Pain management was addressed. Hemoglobin and hematocrit were closely monitored with goal to keep hemoglobin above 7, remained at baseline. CEA with minimal elevation 5.1. Psychiatrist closely followed. Psychiatrist diagnosed patient with schizoaffective disorder bipolar type. Psychiatric medication regimen was optimized as per psychiatrist recommendation. Cognitive behavioral therapy provided. FINAL DIAGNOSES: Left ankle ulcer Left ankle cellulitis COPD Hypertension Diabetes mellitus Noncardiac chest pain Anemia Schizoaffective bipolar type Hyperkalemia Acute renal failure Hypercalcemia PVD Sinus tachycardia DISCHARGE MEDICATIONS: See Medication Reconciliation list. DISCHARGE INSTRUCTIONS: Patient was discharged to the half-way facility. Follow up with medical doctor at the facility. Giuliana Kinney NP Jan 21, 2019 09:34
== END 2019-01-18 15:12 | DRG 592 ==
LOC: EDUNIT# 11:04 → EDBD 11:04 → EMR 12:30 → 4E 12:42 → EDBEDREQ 16:58 → 4E 17:17 → SDSOVERFLO 12-31 10:00 → 4E 12-31 10:02
DX: L97.322 Non-pressure chronic ulcer of left ankle with fat layer exposed (principal); N17.0 Acute kidney failure with tubular necrosis; E46 Unspecified protein-calorie malnutrition; L03.116 Cellulitis of left lower limb; Z68.1 Body mass index [BMI] 19.9 or less, adult; N39.0 Urinary tract infection, site not specified; I10 Essential (primary) hypertension; J44.9 Chronic obstructive pulmonary disease, unspecified; E11.9 Type 2 diabetes mellitus without complications; F25.0 Schizoaffective disorder, bipolar type; R62.7 Adult failure to thrive; D64.9 Anemia, unspecified; R07.89 Other chest pain; E87.5 Hyperkalemia; E83.52 Hypercalcemia; R00.0 Tachycardia, unspecified; T44.3X5A Adverse effect of other parasympatholytics [anticholinergics and antimuscarinics] and spasmolytics, initial encounter; Y92.239 Unspecified place in hospital as the place of occurrence of the external cause; I73.9 Peripheral vascular disease, unspecified
CPT/HCPCS: 36415; 71045; 76770; 80048; 80053; 80076; 80202; 81003; 82043; 82044; 82270; 82306; 82378; 82570; 82607; 82746; 82962; 83519; 83540; 83550; 83605; 83615; 83970; 84133; 84300; 84484; 85007; 85025; 85044; 85060; 85610; 85651; 85730; 86140; 87040; 87070; 87081; 87181; 87205; 89050; 93005; 93306; 93970; 94664; 96361; 96365; 96366; 96375; 99285; J1815; J2405